=== PATIENT | male | born 1930 | race Caucasian/White ===

== ENCOUNTER → 2016-12-11 | Outpatient (CLI) | payer MEDICARE ==
--- NOTE | 2016-12-11 13:17 | Diagnostic Imaging Report ---
EXAM: PA and lateral views of the chest. INDICATION: Wheezing. FINDINGS: There is left infrahilar patchy infiltrate that may relate to pneumonia. The right lung is clear. There is mild hyperinflation in the lungs. The heart size is mildly enlarged. No effusion or pneumothorax. The mediastinum and uriel appear unremarkable. IMPRESSION: Left infrahilar infiltrates suggestive of pneumonia. Report faxed to Dr. Villa at 1:17 p.m. 12/11/2016/cb Dictated by: Dictated on workstation # [id number]
== END ==
LOC: RAD 11:55
PROVIDERS: ATTEND Family Medicine
DX: R93.8 Abnormal findings on diagnostic imaging of other specified body structures (principal); R05 Cough; R06.2 Wheezing
CPT/HCPCS: 71020

== ENCOUNTER → 2016-12-16 | Outpatient (CLI) | payer MEDICARE ==
--- NOTE | 2016-12-16 12:01 | Diagnostic Imaging Report ---
EXAMINATION: PA and lateral views of the chest. COMPARISON: 12/11/2016. FINDINGS: There is improvement in the left perihilar infiltrate. The lungs demonstrate background mild interstitial thickening, probably chronic with a possible element of vascular congestion. The heart size is mildly enlarged. No effusion or pneumothorax. The mediastinum and uriel appear unremarkable. IMPRESSION: Improving left perihilar infiltrate. Cardiomegaly with minimal vascular congestion. Dictated by: Dictated on workstation # [id number]
== END ==
LOC: RAD 10:58
PROVIDERS: ATTEND Family Medicine
DX: R91.8 Other nonspecific abnormal finding of lung field (principal); I51.7 Cardiomegaly; R05 Cough
CPT/HCPCS: 71020

== ENCOUNTER → 2017-03-25 | Outpatient (CLI) | payer MEDICARE ==
--- NOTE | 2017-03-25 14:30 | Diagnostic Imaging Report ---
INDICATION: Pneumonia. PA and lateral chest obtained at 11:30 a.m. and compared to 12/16/2016. Heart and mediastinal silhouette are normal in appearance. The lungs appear clear. There is no pneumothorax or pleural fluid. The mild infiltrate visualized in the left infrahilar region appears resolved. IMPRESSION: No acute process in the chest with improvement in left perihilar infiltrate compared with 12/16/2016. Dictated by: Dictated on workstation # [id number]
== END ==
LOC: RAD 10:32
PROVIDERS: ATTEND Family Medicine
DX: J18.9 Pneumonia, unspecified organism (principal)
CPT/HCPCS: 71020

== ENCOUNTER 2017-04-29 00:11 | Inpatient (IN) | payer MEDICARE, MEDICAID ==
[~2017-04-29] VITALS: Ht 177.8 cm; Wt 84.0 kg
--- OUTSIDE RECORDS SUMMARY | 2017-04-29 00:18 | XMS REPORT | Continuity of Care Document ---
Author Author [facility] Organization [facility] Address [address] [place] [address] Phone Care Team Providers Care Sand Conditioner Machine Name Role Phone Aakash Hernández MD PP Aakash Hernández MD Unavailable Unavailable Problems Name Dates Details Acquired hypothyroidism (244.9, E03.9) Status: Active Atherosclerosis of [place] coronary artery of [place] heart without angina pectoris (414.01, I25.10) Status: Active Benign essential hypertension (401.1, I10) Status: Active Bronchitis (490, J40) Status: Active COMBO MEDICARE HIGH DOSE INFLUENZA AND PREVNAR PNEUMOVAX (Renamed from Need for prophylactic vaccination against Streptococcus pneumoniae (pneumococcus) and influenza) (V06.6, Z23) Status: Active Controlled diabetes mellitus (250.00, E11.9) Status: Active Encounter for long-term (current) use of high-risk medication (V58.69, Z79.899 ) Status: Active Hypercholesterolemia (Renamed from Hypercholesteremia) (272.0, E78.0) Status: Active Hypercholesterolemia (Renamed from Hypercholesteremia) (272.0, E78.0) Status: Active Kidney disease, chronic, stage III (moderate, 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 Montiel for comprehensive documentation of visit for multiple medical problems and consultation for pre-operative evaluation for PKE and IOL OS. 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: Active Medications Name Dates Details BABY ASPIRIN, 81MG (Oral Tablet Chewable) daily (81 MG) Active CENTRUM SILVER (Oral Tablet) daily Active CYMBALTA, 30MG (Oral Capsule Delayed Release Particles) one daily (30 MG) Active DONEPEZIL HCL, 10MG (Oral Tablet) one-half at bedtime (10 MG) Active FOLIC ACID, 1MG (Oral Tablet) daily (1 MG) Active GLIPIZIDE, 10MG (Oral Tablet) daily (10 MG) Active LEVEMIR FLEXTOUCH, 100UNIT/ML (Subcutaneous Solution Pen-injector) 40 units in am, 30u in evening for 30 days Quantity: 5 {Pre-filled_Pen_Syringe} Ordered:10-Oct-2015 Akaash Hernández MD* Start 10-Oct-2015 Active LISINOPRIL, 5MG (Oral Tablet) 1 (one) Tablet daily for 30 days * Quantity: 30 {QS} Refills: 12 Ordered:30-Sep-2015 Aakash Hernández MD* Start 30-Sep-2015 Active METFORMIN HCL, 500MG (Oral Tablet) one two times daily (500 MG) Active SIMVASTATIN, 80MG (Oral Tablet) one-half at bedtime (80 MG) Active VITAMIN D3, 2000UNIT (Oral Capsule) one daily (2000 UNIT) Active CITALOPRAM HYDROBROMIDE, 40MG (Oral Tablet) one-half tablet daily (40 MG) Inactive DONEPEZIL HCL, 10MG (Oral Tablet) 1 (one) Tablet daily for 30 days * Quantity: 30 {Tablet} Refills: 0 Ordered:23-Jul-2015 Aakash Hernández MD* Start 23-Jul-2015 End 22-Aug-2015 Inactive DOXAZOSIN MESYLATE, 8MG (Oral Tablet) one-half tablet at bedtime (8 MG) Inactive DOXYCYCLINE MONOHYDRATE, 100MG (Oral Tablet) 1 (one) Tablet two times daily for 10 days * Quantity: 20 {Tablet} Refills: 0 Ordered:20-Nov-2015 Aakash Hernández MD* Start 20-Nov-2015 End 30-Nov-2015 Inactive FLOMAX, 0.4MG (Oral Capsule) at bedtime (0.4 MG) Inactive FOLIC ACID, 1MG (Oral Tablet) daily (1 MG) Inactive GLIMEPIRIDE, 2MG (Oral Tablet) 1 (one) Tablet Tablet daily for 90 days * Quantity: 90 {Tablet} Refills: 4 Ordered: Imelda Mena R.N.* Start 22-Nov-2014 End Inactive Comments: faxed to [facility] GLYBURIDE, 5MG (Oral Tablet) daily (5 MG) Inactive HYDROCHLOROTHIAZIDE, 25MG (Oral Tablet) daily (25 MG) Inactive LANTUS SOLOSTAR, 100UNIT/ML (Subcutaneous Solution Pen-injector) 5 units units at bedtime for 90 days * Quantity: 450 {Milliliter} Refills: 4 Ordered: Imelda Mena R.N.* Start 22-Nov-2014 End Inactive Comments: rx faxed to [facility] LEVOTHYROXINE SODIUM, 75MCG (Oral Tablet) 1 (one) Tablet Tablet daily for 30 days * Quantity: 30 {Tablet} Refills: 12 Ordered:26-Nov-2014 Imelda Mena R.N.* Start End 26-Nov-2014 Inactive LINEZOLID, 600MG (Oral Tablet) one two times daily (600 MG) Inactive LISINOPRIL, 20MG (Oral Tablet) one-half tablet of 40mg daily (20 MG) Inactive LISINOPRIL, 5MG (Oral Tablet) daily (5 MG) Inactive Comments: faxed to [facility] NAMENDA XR TITRATION PACK, 7 & 14 & 21 &28MG (Oral Capsule Extended Release 24 Hour) 1 (one) Capsule ER 24HR Capsule ER 24HR as directed for 30 days * Quantity: 60 {Capsule} Refills: 0 Ordered: Aakash Hernández MD* Start End Inactive NAMENDA, 10MG (Oral Tablet) one at bedtime (10 MG) Inactive NAMENDA, 10MG (Oral Tablet) two times daily (10 MG) Inactive Novalog Insulin 70/30 20 units in AM 10 units in PM Inactive NOVOLOG MIX 70/30, (70-30) 100UNIT/ML (Subcutaneous Suspension) 20 units in AM and 10 units in PM ((70-30) 100 UNIT/ML) Inactive SEROQUEL, 25MG (Oral Tablet) one at bedtime (25 MG) Inactive TYLENOL PM EXTRA STRENGTH, 500-25MG (Oral Tablet) at bedtime (500-25 MG) Inactive VITAMIN E, 1000UNIT (Oral Capsule) two times daily (1000 UNIT) Inactive Allergies and Adverse Reactions Name Dates Details Levaquin *FLUOROQUINOLONES* (Allergy) Status: Active Lortab *ANALGESICS - OPIOID* (Allergy) Status: Active Penicillins (Allergy) Status: Active Past Medical History Name Dates Details Need for immunization against influenza (V04.81, Z23) Status: Inactive Procedures Procedure Dates Details Acute Bronchitis: bronchitis Ordered:20-Nov-2015 Follow up in 2 months Ordered:20-Nov-2015 Follow up in 2 months Ordered:03-Sep-2015 Follow up in 6 weeks Ordered:23-Jul-2015 Follow up in 2 months Ordered:07-May-2015 How to access health information online Completed:07-May-2015 Follow up in 6 weeks Ordered:26-Mar-2015 How to access health information online Completed:26-Mar-2015 INFLUENZA QUADRIVALENT VAC: FLU VACC ([id number]) Completed:27-Mar-2015 ADMINISTRATION OF INFLUENZA VIRUS VACCINE (G0008) Ordered:26-Mar-2015 Follow up in 2 months Ordered: How to access health information online Completed: Follow up in 3 weeks Ordered: How to access health information online Completed: Follow up in 6 weeks Ordered:26-Nov-2014 How to access health information online Completed:26-Nov-2014 Follow up in 6 months Ordered:15-May-2014 ADMINISTRATION OF PNEUMOCOCCAL CONJUGATE VACCINE (G0009) Ordered:15-May-2014 PREVNAR 13 VALENT PNEUMOCOCCAL VACCINE ([id number]) Completed:07-Jun-2014 ADMINISTRATION OF INFLUENZA VACCINE (G0008) Ordered:15-May-2014 HIGH DOSE QUADRIVALENT INFLUENZA VACCINE (52790) Completed:07-Jun-2014 Follow up in 4 months Ordered: Follow up in 4 months Ordered:03-Aug-2013 ADMIN INFLUENZA VIRUS VAC: FLU VACC PRSV FREE INC ANTIG ([id number]) Completed: Comments: CAC order ADMINISTRATION OF INFLUENZA VIRUS VACCINE (G0008) Ordered:03-May-2013 Comments: CAC order Follow up in 4 months Ordered:16-Mar-2013 CAROTID BILATERAL US ([id number]) Ordered:09-Nov-2012 Follow up in 4 months Ordered:08-Nov-2012 ADMIN INFLUENZA VIRUS VAC: FLU VACC PRSV FREE INC ANTIG ([id number]) Ordered: ADMINISTRATION OF INFLUENZA VIRUS VACCINE (G0008) Ordered:10-May-2012 CAROTID BILATERAL US ([id number]) Ordered:15-Oct-2011 ADMINISTRATION OF INFLUENZA VIRUS VACCINE (G0008) Ordered:11-Jun-2011 FLU VACC PRSV FREE INC ANTIG ([id number]) Completed:15-Jun-2011 Chronic Kidney Failure *: chronic renal insufficiency Ordered:11-Jun-2011 Follow up in 4 months Ordered: Follow up in 4 months Ordered:28-Aug-2010 EXTREMITY STUDY ([id number]) Ordered:28-Aug-[address] SCAN OF LUMBAR SPINE (20408) Ordered:28-Aug-2010 ADMINISTRATION OF INFLUENZA VIRUS VACCINE (G0008) Completed:30-May-2010 FLU VACCINE, 3 YRS & >, IM ([id number]) Completed:24-Apr-2010 Catheterization, Left Heart-Skin Completed:02-Dec-2004 EKG Completed:13-Nov-2014 EKG Completed:22-Apr-2010 EKG Completed:09-Dec-2015 Flu Vaccine Completed:10-May-2012 Flu Vaccine Completed:26-Mar-2015 Pneumovax Completed:01-May-2008 Prevnar 13 Completed:15-May-2014 PSA Completed:03-Aug-2013 Comments: (3.93) PSA Completed: Comments: (3.58) Immunization Name Dates Details Fluzone Lot #: [id number] Administered on:11-Jun-2011 Comments: Site: Deltoid (Left) Influenza (3 years and up) Lot #: [id number] Administered on:24-Apr-2010 Comments: Site: Deltoid (Left) Influenza, preserv. free, enhanced immunogncty, IM Lot #: [id number] Administered on:26-Mar-2015 Comments: Site: Deltoid (Left) Influenza, preserv. free, enhanced immunogncty, IM Lot #: [id number] Administered on:03-May-2013 Comments: Site: Deltoid (Left) Influenza, preserv. free, enhanced immunogncty, IM Lot #: [id number] Administered on:15-May-2014 Comments: Site: Deltoid (Right) Pneumococcal (2 years and up) Administered on:01-May-2008 Pneumococcal conjugate vaccine, 13 valent, IM Lot #: [id number] Administered on:15-May-2014 Comments: Site: Deltoid (Left) Family History Name Dates Details Brother 1 Comments: healthy Status: Active Brother 2 Comments: borderline diabetes Status: Active Father Comments: 72 yo [place] Status: Active Mother Comments: at 67 of cancer Status: Active Sister 1 Comments: NIDDM Status: Active Sister 2 Comments: NIDDM Status: Active Social History Name Dates Details Highest Education Level Attained: High school graduate. Status: Active Marital status: . Status: Active Non Drinker/No Alcohol Use Status: Active Place of Comments: [facility] Status: Active Tobacco use: Former smoker. Status: Active Vital Signs Date Test Result Details 20-Nov-2015 10:41 Temperature 98.4 f Comments: Method: Temporal Pulse 72 /min Comments: Pattern: Regular Respiration Rate 20 /min Comments: Pattern: Unlabored BP Systolic 156 mm[Hg] Comments: Patient Position: Sitting; Cuff Location: Left Arm; Cuff Size: Large BP Diastolic 88 mm[Hg] Comments: Patient Position: Sitting; Cuff Location: Left Arm; Cuff Size: Large Weight 172 lb Height 67.5 in Body Mass Index Calculated 26.54 kg/m2 Body Surface Area Calculated 1.91 m2 03-Sep-2015 10:55 Temperature 97.3 f Comments: Method: Temporal Pulse 70 /min Comments: Pattern: Regular BP Systolic 138 mm[Hg] Comments: Patient Position: Sitting; Cuff Location: Left Arm; Cuff Size: Standard BP Diastolic 70 mm[Hg] Comments: Patient Position: Sitting; Cuff Location: Left Arm; Cuff Size: Standard Weight 175.3125 lb Height 67.5 in Body Mass Index Calculated 27.05 kg/m2 Body Surface Area Calculated 1.92 m2 23-Jul-2015 14:43 Temperature 96.6 f Comments: Method: Temporal Pulse 56 /min Comments: Pattern: Regular Respiration Rate 20 /min Comments: Pattern: Unlabored BP Systolic 160 mm[Hg] Comments: Patient Position: Sitting; Cuff Location: Left Arm; Cuff Size: Large BP Diastolic 64 mm[Hg] Comments: Patient Position: Sitting; Cuff Location: Left Arm; Cuff Size: Large Weight 177 lb Height 67 in Body Mass Index Calculated 27.72 kg/m2 Body Surface Area Calculated 1.92 m2 07-May-2015 11:15 Temperature 97.7 f Comments: Method: Temporal Pulse 52 /min Comments: Pattern: Regular Respiration Rate 20 /min Comments: Pattern: Unlabored BP Systolic 132 mm[Hg] Comments: Patient Position: Sitting; Cuff Location: Left Arm; Cuff Size: Large BP Diastolic 68 mm[Hg] Comments: Patient Position: Sitting; Cuff Location: Left Arm; Cuff Size: Large Weight 174 lb Height 67 in Body Mass Index Calculated 27.25 kg/m2 Body Surface Area Calculated 1.91 m2 26-Mar-2015 10:28 Temperature 97.3 f Comments: Method: Temporal Pulse 64 /min Comments: Pattern: Regular Respiration Rate 20 /min Comments: Pattern: Unlabored BP Systolic 152 mm[Hg] Comments: Patient Position: Sitting; Cuff Location: Left Arm; Cuff Size: Standard BP Diastolic 66 mm[Hg] Comments: Patient Position: Sitting; Cuff Location: Left Arm; Cuff Size: Standard Weight 168 lb Height 67 in Body Mass Index Calculated 26.31 kg/m2 Body Surface Area Calculated 1.88 m2 16:07 Temperature 97.9 f Comments: Method: Temporal Pulse 60 /min Comments: Pattern: Regular Respiration Rate 20 /min Comments: Pattern: Unlabored BP Systolic 134 mm[Hg] Comments: Patient Position: Sitting; Cuff Location: Left Arm; Cuff Size: Standard BP Diastolic 62 mm[Hg] Comments: Patient Position: Sitting; Cuff Location: Left Arm; Cuff Size: Standard Weight 163 lb Height 67 in Body Mass Index Calculated 25.53 kg/m2 Body Surface Area Calculated 1.85 m2 16:22 Temperature 97.5 f Comments: Method: Temporal Pulse 52 /min Comments: Pattern: Regular Respiration Rate 20 /min Comments: Pattern: Unlabored BP Systolic 132 mm[Hg] Comments: Patient Position: Sitting; Cuff Location: Left Arm; Cuff Size: Standard BP Diastolic 62 mm[Hg] Comments: Patient Position: Sitting; Cuff Location: Left Arm; Cuff Size: Standard Weight 165 lb Height 67 in Body Mass Index Calculated 25.84 kg/m2 Body Surface Area Calculated 1.86 m2 26-Nov-2014 15:16 Temperature 97.6 f Comments: Method: Temporal Pulse 74 /min Comments: Pattern: Regular Respiration Rate 20 /min Comments: Pattern: Unlabored BP Systolic 142 mm[Hg] Comments: Patient Position: Sitting; Cuff Location: Left Arm; Cuff Size: Standard BP Diastolic 66 mm[Hg] Comments: Patient Position: Sitting; Cuff Location: Left Arm; Cuff Size: Standard Weight 173.5 lb Height 67 in Body Mass Index Calculated 27.17 kg/m2 Body Surface Area Calculated 1.9 m2 15-May-2014 14:27 Temperature 98.5 f Comments: Method: Temporal Pulse 64 /min Comments: Pattern: Regular Respiration Rate 20 /min Comments: Pattern: Unlabored BP Systolic 164 mm[Hg] Comments: Patient Position: Sitting; Cuff Location: Left Arm; Cuff Size: Large BP Diastolic 68 mm[Hg] Comments: Patient Position: Sitting; Cuff Location: Left Arm; Cuff Size: Large Weight 184 lb Height 67 in Body Mass Index Calculated 28.82 kg/m2 Body Surface Area Calculated 1.95 m2 15:43 Temperature 98.5 f Comments: Method: Temporal Pulse 60 /min Comments: Pattern: Regular Respiration Rate 20 /min Comments: Pattern: Unlabored BP Systolic 146 mm[Hg] Comments: Patient Position: Sitting; Cuff Location: Left Arm; Cuff Size: Large BP Diastolic 66 mm[Hg] Comments: Patient Position: Sitting; Cuff Location: Left Arm; Cuff Size: Large Weight 187 lb Height 67 in Body Mass Index Calculated 29.29 kg/m2 Body Surface Area Calculated 1.97 m2 03-Aug-2013 10:33 Temperature 97 f Comments: Method: Temporal Pulse 74 /min Comments: Pattern: Regular Respiration Rate 20 /min Comments: Pattern: Unlabored BP Systolic 140 mm[Hg] Comments: Patient Position: Sitting; Cuff Location: Left Arm; Cuff Size: Large BP Diastolic 72 mm[Hg] Comments: Patient Position: Sitting; Cuff Location: Left Arm; Cuff Size: Large Weight 188 lb Height 67 in Body Mass Index Calculated 29.44 kg/m2 Body Surface Area Calculated 1.97 m2 16-Mar-2013 10:48 Temperature 97.8 f Comments: Method: Temporal Pulse 64 /min Comments: Pattern: Regular Respiration Rate 20 /min Comments: Pattern: Unlabored BP Systolic 130 mm[Hg] Comments: Patient Position: Sitting; Cuff Location: Left Arm; Cuff Size: Large BP Diastolic 70 mm[Hg] Comments: Patient Position: Sitting; Cuff Location: Left Arm; Cuff Size: Large Weight 186 lb Height 67 in Body Mass Index Calculated 29.13 kg/m2 Body Surface Area Calculated 1.96 m2 08-Nov-2012 10:30 Temperature 98 f Comments: Method: Temporal Pulse 64 /min Comments: Pattern: Regular Respiration Rate 20 /min Comments: Pattern: Unlabored BP Systolic 128 mm[Hg] Comments: Patient Position: Sitting; Cuff Location: Left Arm; Cuff Size: Standard BP Diastolic 72 mm[Hg] Comments: Patient Position: Sitting; Cuff Location: Left Arm; Cuff Size: Standard Weight 187 lb Height 67 in Body Mass Index Calculated 29.29 kg/m2 Body Surface Area Calculated 1.97 m2 10-May-2012 11:05 Temperature 98.1 f Comments: Method: Temporal Pulse 74 /min Comments: Pattern: Regular Respiration Rate 20 /min Comments: Pattern: Unlabored BP Systolic 150 mm[Hg] Comments: Patient Position: Sitting; Cuff Location: Left Arm; Cuff Size: Standard BP Diastolic 72 mm[Hg] Comments: Patient Position: Sitting; Cuff Location: Left Arm; Cuff Size: Standard Weight 187 lb Height 67 in Body Mass Index Calculated 29.29 kg/m2 Body Surface Area Calculated 1.97 m2 15-Oct-2011 11:47 Temperature 97.6 f Comments: Method: Temporal Pulse 60 /min Comments: Pattern: Regular Respiration Rate 20 /min Comments: Pattern: Unlabored BP Systolic 134 mm[Hg] Comments: Patient Position: Sitting; Cuff Location: Left Arm; Cuff Size: Standard BP Diastolic 66 mm[Hg] Comments: Patient Position: Sitting; Cuff Location: Left Arm; Cuff Size: Standard Weight 187 lb Height 67 in Body Mass Index Calculated 29.29 kg/m2 Body Surface Area Calculated 1.97 m2 11-Jun-2011 11:44 Temperature 97.7 f Comments: Method: Temporal Pulse 60 /min Comments: Pattern: Regular Respiration Rate 20 /min Comments: Pattern: Unlabored BP Systolic 110 mm[Hg] Comments: Patient Position: Sitting; Cuff Location: Left Arm; Cuff Size: Large BP Diastolic 56 mm[Hg] Comments: Patient Position: Sitting; Cuff Location: Left Arm; Cuff Size: Large Weight 187 lb Height 67.5 in Body Mass Index Calculated 28.86 kg/m2 Body Surface Area Calculated 1.98 m2 15:45 Temperature 97.2 f Comments: Method: Temporal Pulse 60 /min Comments: Pattern: Regular Respiration Rate 20 /min Comments: Pattern: Unlabored BP Systolic 120 mm[Hg] Comments: Patient Position: Sitting; Cuff Location: Left Arm; Cuff Size: Standard BP Diastolic 74 mm[Hg] Comments: Patient Position: Sitting; Cuff Location: Left Arm; Cuff Size: Standard Weight 187 lb Height 67.5 in Body Mass Index Calculated 28.86 kg/m2 Body Surface Area Calculated 1.98 m2 28-Aug-2010 10:58 Temperature 97 f Comments: Method: Temporal Pulse 64 /min Comments: Pattern: Regular Respiration Rate 20 /min Comments: Pattern: Unlabored BP Systolic 132 mm[Hg] Comments: Patient Position: Sitting; Cuff Location: Left Arm; Cuff Size: Standard BP Diastolic 60 mm[Hg] Comments: Patient Position: Sitting; Cuff Location: Left Arm; Cuff Size: Standard Weight 182 lb 24-Apr-2010 10:48 Temperature 97.8 f Comments: Method: Temporal Pulse 2 /min Comments: Pattern: Regular Respiration Rate 20 /min Comments: Pattern: Unlabored BP Systolic 148 mm[Hg] Comments: Patient Position: Sitting; Cuff Location: Left Arm; Cuff Size: Standard BP Diastolic 82 mm[Hg] Comments: Patient Position: Sitting; Cuff Location: Left Arm; Cuff Size: Standard Weight 130 lb Height 67 in Body Mass Index Calculated 20.36 kg/m2 Body Surface Area Calculated 1.68 m2 Results Date Description Value Details 22-Apr-2010 11:37 ELECTROCARDIOGRAM, COMPLETE (80778) [EKG] CT Interval: 1 mm Pending 03-Sep-2015 11:24 A1C 9.1 % (Abnormal) Range: 4.6-6.2 Comments: Consistent with diabetes. 11:24 CBC-MALE- ORDER THIS ONE! ([id number]) manual diff Not Indicated (Normal) mpv 10.60 fL (Normal) Range: 0.00-99.90 PLT 217.0 10*3/uL (Normal) Range: 150.0-450.0 RDW 13.8 % (Normal) Range: 11.5-14.5 MCHC 34.5 g/dL (Normal) Range: 31.0-36.0 MCH 28.9 pg (Normal) Range: 27.0-31.2 MCV 83.6 fL (Normal) Range: 80.0-97.0 HCT 38.8 % (Abnormal) Range: 39.0-54.0 HGB 13.40 g/dL (Normal) Range: 13.00-17.00 RBC 4.64 M/uL (Normal) Range: 4.60-6.20 Baso% 0.600 % (Normal) Range: 0.000-1.000 eos% 2.00 % (Normal) Range: 0.00-3.00 mono% 9.20 % (Abnormal) Range: 0.00-9.00 LYM% 18.20 % (Abnormal) Range: 20.00-40.00 june% 70.00 % (Normal) Range: 55.00-75.00 Baso 0.050 10*3/uL (Normal) Range: 0.000-0.100 eos 0.170 10*3/uL (Normal) Range: 0.000-4.000 mono 0.80 10*3/uL (Abnormal) Range: 0.00-0.70 LYMPHS 1.58 10*3/uL (Normal) Range: 0.90-4.20 june 6.08 10*3/uL (Normal) Range: 2.50-7.80 wbc 8.68 10*3/uL (Normal) Range: 4.50-10.50 11:24 Vitamin D, 25-Hydroxy (33140) Comments: Testing performed at: [facility], [address] [place] [address], [id number], Systems Administrator: Kike Sidhu D.O., [employer] VITAMIN D,25-OH,TOTAL,IA 24 ng/mL (Abnormal) Range: 30-100 Comments: Vitamin D Status 25-OH Vitamin D: Deficiency: <20 ng/mLInsufficiency: 20 - 29 ng/mLOptimal: > or=30 ng/mL For 25-OH Vitamin D testing on patients on D2-supplementation and patients for whom quantitation of D2 and D3 fractions is required, the Advanced BioNutritionureD(TM)25-OH VIT D, (D2,D3), LC/MS/MS is recommended: order code 87654 (patients >2yrs). For more information on this test, go to:http:// education.[employer]/faq/KWC743(This link is being provided for informational/educational purposes only.) 11:24 PTH Intact ([id number]) Comments: Items in this order include: Draw Charge[i], Basic Metabolic Panel, PTH, Vitamin D, 25-Hydroxy, CBC, Hemoglobin [id number] performed at: [facility], [facility], [address] [place] [address] , [id number], Systems Administrator: Kike Sidhu D.O., [employer] PARATHYROID HORMONE, INTACT 46 pg/mL (Normal) Range: 14-64 Comments: Interpretive Guide Intact PTH Calcium -------Normal Parathyroid Normal NormalHypoparathyroidism Low or Low Normal LowHyperparathyroidism Primary Normal or High High Secondary High Normal or Low Tertiary High HighNon- Parathyroid Hypercalcemia Low or Low Normal High 11:24 BMP GLU 296 mg/dL (Abnormal) Range: 70-110 CA 9.0 mg/dL (Normal) Range: 8.4-10.2 eGFR 54.5 mL/min/1.73m2 (Abnormal) Range: >60.0 CREAT 1.3 mg/dL (Normal) Range: 0.6-1.3 BUN 20 mg/dL (Abnormal) Range: 7-18 OSMO 286 (Normal) Range: 275-295 AGAP 12.10 mmol/L (Normal) Range: 10.00-20.00 CL 101 mmol/L (Normal) Range: 98-107 CO2 27.5 mmol/L (Normal) Range: 21.0-32.0 K 4.6 mmol/L (Normal) Range: 3.5-5.0 NA 136 mmol/L (Normal) Range: 135-145 11:24 VENIPUNCTURE Draw Drawn (Normal) 07-May-2015 11:58 A1C 10.5 % (Abnormal) Comments: Items in this order include: Draw Charge[i], Basic Metabolic Panel, Hemoglobin A1C Range: 4.6-6.2 Comments: Consistent with diabetes. 11:58 BMP Comments: Items in this order include: Draw Charge[i], Basic Metabolic Panel, Hemoglobin A1C GLU 238 mg/dL (Abnormal) Range: 70-110 CA 8.7 mg/dL (Normal) Range: 8.4-10.2 eGFR 47.5 mL/min/1.73m2 (Abnormal) Range: >60.0 CREAT 1.5 mg/dL (Abnormal) Range: 0.6-1.3 OSMO 290 (Normal) Range: 275-295 BUN 25 mg/dL (Abnormal) Range: 7-18 AGAP 13.00 mmol/L (Normal) Range: 10.00-20.00 CO2 28.9 mmol/L (Normal) Range: 21.0-32.0 CL 102 mmol/L (Normal) Range: 98-107 K 4.9 mmol/L (Normal) Range: 3.5-5.0 NA 139 mmol/L (Normal) Range: 135-145 11:58 VENIPUNCTURE Comments: Items in this order include: Draw Charge[i], Basic Metabolic Panel, Hemoglobin A1C Draw Drawn (Normal) 26-Nov-2014 15:59 BMP Comments: Items in this order include: Draw Charge [i], Basic Metabolic Panel GLU 114 mg/dL (Abnormal) Range: 70-110 CA 9.0 mg/dL (Normal) Range: 8.4-10.2 eGFR 44.1 mL/min/1.73m2 (Abnormal) Range: >60.0 CREAT 1.6 mg/dL (Abnormal) Range: 0.6-1.3 BUN 17 mg/dL (Normal) Range: 7-18 OSMO 284 (Normal) Range: 275-295 AGAP 13.70 mmol/L (Normal) Range: 10.00-20.00 CO2 28.8 mmol/L (Normal) Range: 21.0-32.0 CL 103 mmol/L (Normal) Range: 98-107 K 4.5 mmol/L (Normal) Range: 3.5-5.0 NA 141 mmol/L (Normal) Range: 135-145 15:59 VENIPUNCTURE Comments: Items in this order include: Draw Charge[i], Basic Metabolic Panel Draw Drawn (Normal) 28-Feb-2014 09:48 TSH (THYROID STIMULATING HORMONE) ([id number]) Comments: Items in this order include: Draw Charge[i], Basic Metabolic Panel, Hemoglobin A1C, T4 Free, TSH TSH 5.37 uIU/ml (Normal) Range: 0.34-5.60 09:48 FT4 (Thyroxine Free) Comments: Items in this order include: Draw Charge[i], Basic Metabolic Panel, Hemoglobin A1C, T4 Free, TSH FT4 0.70 ng/dL (Normal) Range: 0.59-1.17 09:48 A1C 7.7 % (Abnormal) Comments: Items in this order include: Draw Charge[i], Basic Metabolic Panel, Hemoglobin A1C, T4 Free, TSH Range: 4.6-6.2 Comments: Consistent with diabetes. 09:48 BMP Comments: Items in this order include: Draw Charge[i], Basic Metabolic Panel, Hemoglobin A1C, T4 Free, TSH GLU 220 mg/dL (Abnormal) Range: 70-110 CA 9.4 mg/dL (Normal) Range: 8.4-10.2 eGFR 47.6 mL/min/1.73m2 (Abnormal) Range: >60.0 CREAT 1.5 mg/dL (Abnormal) Range: 0.6-1.3 OSMO 294 (Normal) Range: 275-295 BUN 22 mg/dL (Abnormal) Range: 7-18 AGAP 15.20 mmol/L (Normal) Range: 10.00-20.00 CO2 28.3 mmol/L (Normal) Range: 21.0-32.0 CL 103 mmol/L (Normal) Range: 98-107 K 4.5 mmol/L (Normal) Range: 3.5-5.0 NA 142 mmol/L (Normal) Range: 135-145 09:48 VENIPUNCTURE Comments: Items in this order include: Draw Charge[i], Basic Metabolic Panel, Hemoglobin A1C, T4 Free, TSH Draw Drawn (Normal) 03-Aug-2013 11:15 PSA (Medicare) ([id number]) Comments: Items in this order include: Draw Charge[i], Basic Metabolic Panel, Hemoglobin A1C, Urine Microalbumin, PSA ScreeningLast Hgb A1C was ran 140 Days ago. Check by kb. PSA SCREEN 3.93 ng/mL (Normal) Range: 0.00-4.00 11:15 Urine Microalbumin ([id number]) Comments: Items in this order include: Draw Charge[i], Basic Metabolic Panel, Hemoglobin A1C, Urine Microalbumin, PSA ScreeningLast Hgb A1C was ran 140 Days ago. Check by kb. U A:C RATIO 30 - 300 mg/g Abnormal (Abnormal) Range: <30 mg/g Normal U CREAT 50 mg/dL (Normal) Range: 10-300 U ALB 80 mg/L (Abnormal) Range: 10 mg/L 11:15 A1C 7.5 % (Abnormal) Comments: Items in this order include: Draw Charge[i], Basic Metabolic Panel, Hemoglobin A1C, Urine Microalbumin, PSA ScreeningLast Hgb A1C was ran 140 Days ago. Check by kb. Range: 4.6-6.2 Comments: Consistent with diabetes. 11:15 BMP Comments: Items in this order include: Draw Charge[i], Basic Metabolic Panel, Hemoglobin A1C, Urine Microalbumin, PSA ScreeningLast Hgb A1C was ran 140 Days ago. Check by kb. GLU 150 mg/dL (Abnormal) Range: 70-110 CA 9.0 mg/dL (Normal) Range: 8.4-10.2 eGFR 51.6 mL/min/1.73m2 (Abnormal) Range: >60.0 CREAT 1.4 mg/dL (Abnormal) Range: 0.6-1.3 OSMO 287 (Normal) Range: 275-295 BUN 18 mg/dL (Normal) Range: 7-18 AGAP 13.50 mmol/L (Normal) Range: 10.00-20.00 CO2 29.0 mmol/L (Normal) Range: 21.0-32.0 CL 103 mmol/L (Normal) Range: 98-107 K 4.5 mmol/L (Normal) Range: 3.5-5.0 NA 141 mmol/L (Normal) Range: 135-145 11:15 VENIPUNCTURE Comments: Items in this order include: Draw Charge[i], Basic Metabolic Panel, Hemoglobin A1C, Urine Microalbumin, PSA ScreeningLast Hgb A1C was ran 140 Days ago. Check by kb. Draw Drawn (Normal) 16-Mar-2013 11:42 CK ([id number]) Comments: Items in this order include: Basic Metabolic Panel, Hemoglobin A1C, Draw Charge[i], ALT, CKILast Hgb A1C was ran 128 Days ago. Check by kb CKI 220 U/L (Normal) Range: 39-308 11:42 ALT ([id number]) Comments: Items in this order include: Basic Metabolic Panel, Hemoglobin A1C, Draw Charge[i], ALT, CKILast Hgb A1C was ran 128 Days ago. Check by kb ALTI 30 U/L (Normal) Range: 12-78 11:42 VENIPUNCTURE Routine Venipuncture Drawn (Normal) 11:42 A1C 7.8 % (Abnormal) Comments: Items in this order include: Basic Metabolic Panel, Hemoglobin A1C, Draw Charge[i], ALT, CKILast Hgb A1C was ran 128 Days ago. Check by kb Range: 4.6-6.2 Comments: Consistent with diabetes. 11:42 BMP Comments: Items in this order include: Basic Metabolic Panel , Hemoglobin A1C, Draw Charge[i], ALT, CKILast Hgb A1C was ran 128 Days ago. Check by kb GLU 232 mg/dL (Abnormal) Range: 70-110 CA 8.9 mg/dL (Normal) Range: 8.4-10.2 eGFR 51.7 mL/min/1.73m2 (Abnormal) Range: >60.0 CREAT 1.4 mg/dL (Abnormal) Range: 0.6-1.3 OSMO 291 (Normal) Range: 275-295 BUN 18 mg/dL (Normal) Range: 7-18 AGAP 13.60 mmol/L (Normal) Range: 10.00-20.00 CO2 29.9 mmol/L (Normal) Range: 21.0-32.0 CL 102 mmol/L (Normal) Range: 98-107 K 4.5 mmol/L (Normal) Range: 3.5-5.0 NA 141 mmol/L (Normal) Range: 135-145 11:42 VENIPUNCTURE Comments: Items in this order include: Basic Metabolic Panel, Hemoglobin A1C, Draw Charge[i], ALT, CKILast Hgb A1C was ran 128 Days ago. Check by kb Draw Drawn (Normal) 11-Nov-2012 08:39 LIPID PANEL ([id number]) Comments: Items in this order include: Draw Charge[i], Lipid LDL 60.4 mg/dL (Normal) Range: 1.0-129.0 Comments: Desirable range <100 mg/dL for patients with CHD or Diabetes and <70 mg/dL for diabetic patients with known heart disease. ahdl risk factor 3.33 (Abnormal) Range: 4.00-6.70 HDL 48 mg/dL (Normal) Range: 29-71 TRIG 258 mg/dL (Abnormal) Range: 35-160 CHOL 160 mg/dL (Normal) Range: 0-200 08:39 VENIPUNCTURE Comments: Items in this order include: Draw Charge[i], Lipid Draw Drawn (Normal) 08-Nov-2012 11:08 A1C 8.1 % (Abnormal) Comments: Items in this order include: Draw Charge[i], Basic Metabolic Panel, Hemoglobin [id number] Hgb A1C was ran 182 Days ago. Check by kb Range: 4.6-6.2 Comments: Consistent with diabetes. 11:08 BMP Comments: Items in this order include: Draw Charge[i], Basic Metabolic Panel, Hemoglobin [id number] Hgb A1C was ran 182 Days ago. Check by kb GLU 193 mg/dL (Abnormal) Range: 70-110 CA 9.1 mg/dL (Normal) Range: 8.4-10.2 eGFR 47.8 mL/min/1.73m2 (Abnormal) Range: >60.0 CREAT 1.5 mg/dL (Abnormal) Range: 0.6-1.3 OSMO 291 (Normal) Range: 275-295 BUN 18 mg/dL (Normal) Range: 7-18 AGAP 13.60 mmol/L (Normal) Range: 10.00-20.00 CO2 32.2 mmol/L (Abnormal) Range: 21.0-32.0 CL 101 mmol/L (Normal) Range: 98-107 K 4.8 mmol/L (Normal) Range: 3.5-5.0 NA 142 mmol/L (Normal) Range: 135-145 11:08 VENIPUNCTURE Comments: Items in this order include: Draw Charge[i], Basic Metabolic Panel, Hemoglobin [id number] Hgb A1C was ran 182 Days ago. Check by kb Draw Drawn (Normal) 10-May-2012 11:35 TSH (THYROID STIMULATING HORMONE) ([id number]) Comments: Items in this order include: Draw Charge[i], Basic Metabolic Panel, Hemoglobin A1C, Urine Microalbumin, TSHLast Hgb A1C was ran 208 Days ago. Check by KB TSH 4.90 uIU/ml (Normal) Range: 0.34-5.60 11:35 Urine Microalbumin ([id number]) Comments: Items in this order include: Draw Charge[i], Basic Metabolic Panel, Hemoglobin A1C, Urine Microalbumin, TSHLast Hgb A1C was ran 208 Days ago. Check by KB U A:C RATIO 30 - 300 mg/g Abnormal (Abnormal) Range: <30 mg/g Normal U CREAT 50 mg/dL (Normal) Range: 10-300 U ALB 10 mg/L (Normal) Range: 10 mg/L 11:35 A1C 7.0 % (Abnormal) Comments: Items in this order include: Draw Charge[i], Basic Metabolic Panel, Hemoglobin A1C, Urine Microalbumin, TSHLast Hgb A1C was ran 208 Days ago. Check by KB Range: 4.6-6.2 Comments: Consistent with diabetes. 11:35 BMP Comments: Items in this order include: Draw Charge[i], Basic Metabolic Panel, Hemoglobin A1C, Urine Microalbumin, TSHLast Hgb A1C was ran 208 Days ago. Check by KB GLU 239 mg/dL (Abnormal) Range: 70-110 CA 8.8 mg/dL (Normal) Range: 8.4-10.2 eGFR 51.8 mL/min/1.73m2 (Abnormal) Range: >60.0 CREAT 1.4 mg/dL (Abnormal) Range: 0.6-1.3 OSMO 283 (Normal) Range: 275-295 BUN 15 mg/dL (Normal) Range: 7-18 AGAP 11.80 mmol/L (Normal) Range: 10.00-20.00 CO2 29.7 mmol/L (Normal) Range: 21.0-32.0 CL 100 mmol/L (Normal) Range: 98-107 K 4.5 mmol/L (Normal) Range: 3.5-5.0 NA 137 mmol/L (Normal) Range: 135-145 11:35 VENIPUNCTURE Comments: Items in this order include: Draw Charge[i], Basic Metabolic Panel, Hemoglobin A1C, Urine Microalbumin, TSHLast Hgb A1C was ran 208 Days ago. Check by KB Draw Drawn (Normal) 15-Oct-2011 12:51 A1C 6.8 % (Abnormal) Comments: Items in this order include: Draw Charge[i], Basic Metabolic Panel, Hemoglobin A1C Range: 4.6-6.2 Comments: Consistent with diabetes. 12:51 BMP Comments: Items in this order include: Draw Charge[i], Basic Metabolic Panel, Hemoglobin A1C GLU 92 mg/dL (Normal) Range: 70-110 CA 9.2 mg/dL (Normal) Range: 8.4-10.2 eGFR 47.9 mL/min/1.73m2 (Abnormal) Range: >60.0 CREAT 1.5 mg/dL (Abnormal) Range: 0.6-1.3 OSMO 283 (Normal) Range: 275-295 BUN 17 mg/dL (Normal) Range: 7-18 AGAP 12.40 mmol/L (Normal) Range: 10.00-20.00 CO2 28.8 mmol/L (Normal) Range: 21.0-32.0 CL 104 mmol/L (Normal) Range: 98-107 K 4.2 mmol/L (Normal) Range: 3.5-5.0 NA 141 mmol/L (Normal) Range: 135-145 12:51 VENIPUNCTURE Comments: Items in this order include: Draw Charge[i], Basic Metabolic Panel, Hemoglobin A1C Draw Drawn (Normal) 11-Jun-2011 12:08 CBC-MALE- ORDER THIS ONE! ([id number]) Comments: Items in this order include: Hemoglobin A1C, Draw Charge[i], Basic Metabolic Panel, CBC manual diff Not Indicated (Normal) mpv 8.92 fL (Normal) Range: 0.00-99.90 PLT 234.0 10*3/uL (Normal) Range: 150.0-450.0 RDW 11.5 % (Normal) Range: 11.5-14.5 MCHC 35.9 g/dL (Normal) Range: 31.0-36.0 MCH 30.2 pg (Normal) Range: 27.0-31.2 MCV 84.1 fL (Normal) Range: 80.0-97.0 HCT 38.6 % (Abnormal) Range: 39.0-54.0 HGB 13.90 g/dL (Normal) Range: 13.00-17.00 RBC 4.59 M/uL (Abnormal) Range: 4.60-6.20 Baso% 0.631 % (Normal) Range: 0.000-1.000 eos% 2.05 % (Normal) Range: 0.00-3.00 mono% 8.94 % (Normal) Range: 0.00-9.00 LYM% 20.60 % (Normal) Range: 20.00-40.00 june% 67.80 % (Normal) Range: 55.00-75.00 Baso 0.050 10*3/uL (Normal) Range: 0.000-0.100 eos 0.161 10*3/uL (Normal) Range: 0.000-4.000 mono 0.70 10*3/uL (Normal) Range: 0.00-0.70 LYMPHS 1.62 10*3/uL (Normal) Range: 0.90-4.20 june 5.32 10*3/uL (Normal) Range: 2.50-7.80 wbc 7.85 10*3/uL (Normal) Range: 4.50-10.50 12:08 BMP Comments: Items in this order include: Hemoglobin A1C, Draw Charge[i], Basic Metabolic Panel, CBC GLU 151 mg/dL (Abnormal) Range: 70-110 CA 9.3 mg/dL (Normal) Range: 8.4-10.2 eGFR 51.9 mL/min/1.73m2 (Abnormal) Range: >60.0 CREAT 1.4 mg/dL (Abnormal) Range: 0.6-1.3 OSMO 281 (Normal) Range: 275-295 BUN 19 mg/dL (Abnormal) Range: 7-18 AGAP 10.90 mmol/L (Normal) Range: 10.00-20.00 CL 101 mmol/L (Normal) Range: 98-107 CO2 30.8 mmol/L (Normal) Range: 21.0-32.0 K 4.7 mmol/L (Normal) Range: 3.5-5.0 NA 138 mmol/L (Normal) Range: 135-145 12:08 VENIPUNCTURE Comments: Items in this order include: Hemoglobin A1C, Draw Charge[i], Basic Metabolic Panel, CBC Draw Drawn (Normal) 12:08 A1C 6.8 % (Abnormal) Comments: Items in this order include: Hemoglobin A1C, Draw Charge[i], Basic Metabolic Panel, CBC Range: 4.6-6.2 Comments: Consistent with diabetes. 16:22 Urine Microalbumin ([id number]) Comments: Items in this order include: Basic Metabolic Panel, Hemoglobin A1C, Urine Microalbumin, Draw Charge[i] U A:C RATIO <30 mg/g Normal (Normal) Range: <30 mg/g Normal U CREAT 50 mg/dL (Normal) Range: 10-300 U ALB 10 mg/L (Normal) Range: 10 mg/L 16:22 A1C 7.0 % (Abnormal) Comments: Items in this order include: Basic Metabolic Panel, Hemoglobin A1C, Urine Microalbumin, Draw Charge[i] Range: 4.6-6.2 Comments: Consistent with diabetes. 16:22 BMP Comments: Items in this order include: Basic Metabolic Panel , Hemoglobin A1C, Urine Microalbumin, Draw Charge[i] GLU 155 mg/dL (Abnormal) Range: 70-110 CA 9.3 mg/dL (Normal) Range: 8.4-10.2 eGFR 52.0 mL/min/1.73m2 (Abnormal) Range: >60.0 CREAT 1.4 mg/dL (Abnormal) Range: 0.6-1.3 OSMO 281 (Normal) Range: 275-295 BUN 17 mg/dL (Normal) Range: 7-18 AGAP 10.10 mmol/L (Normal) Range: 10.00-20.00 CO2 29.3 mmol/L (Normal) Range: 21.0-32.0 CL 103 mmol/L (Normal) Range: 98-107 K 4.4 mmol/L (Normal) Range: 3.5-5.0 NA 138 mmol/L (Normal) Range: 135-145 24-Oct-2010 10:57 CREATININE BLOOD ([id number]) Comments: Verbal order from Dr. Aakash Hernández; Verbal order from Dr. Aakash Hernández eGFR 52.0 mL/min/1.73m2 (Abnormal) Range: >60.0 CREAT 1.4 mg/dL (Abnormal) Range: 0.6-1.3 28-Aug-2010 12:07 TSH (THYROID STIMULATING HORMONE) ([id number]) TSH 5.29 uIU/ml (Normal) Range: 0.34-5.60 12:07 CBC-MALE- ORDER THIS ONE! ([id number]) manual diff Not Indicated (Normal) MCHC 35.4 g/dL (Normal) Range: 31.0-36.0 mpv 8.45 fL (Normal) Range: 0.00-99.90 PLT 282.0 10*3/uL (Normal) Range: 150.0-450.0 RDW 11.2 % (Abnormal) Range: 11.5-14.5 Baso% 0.585 % (Normal) Range: 0.000-1.000 HCT 40.6 % (Normal) Range: 39.0-54.0 HGB 14.30 g/dL (Normal) Range: 13.00-17.00 MCH 30.3 pg (Normal) Range: 27.0-31.2 MCV 85.6 fL (Normal) Range: 80.0-97.0 RBC 4.74 M/uL (Normal) Range: 4.60-6.20 Baso 0.052 10*3/uL (Normal) Range: 0.000-0.100 eos% 1.64 % (Normal) Range: 0.00-3.00 LYM% 19.00 % (Abnormal) Range: 20.00-40.00 mono% 9.06 % (Abnormal) Range: 0.00-9.00 june% 69.70 % (Normal) Range: 55.00-75.00 eos 0.144 10*3/uL (Normal) Range: 0.000-4.000 mono 0.80 10*3/uL (Abnormal) Range: 0.00-0.70 LYMPHS 1.68 10*3/uL (Normal) Range: 0.90-4.20 june 6.15 10*3/uL (Normal) Range: 2.50-7.80 wbc 8.82 10*3/uL (Normal) Range: 4.50-10.50 12:07 CK ([id number]) CK 199 U/L (Abnormal) Range: 26-190 12:07 ALT ([id number]) ALT 35 [iU]/L (Normal) Range: 30-65 12:07 A1C 6.5 % (Abnormal) Range: 4.6-6.2 12:07 BMP AGAP 12.70 mmol/L (Normal) Range: 10.00-20.00 BUN 16 mg/dL (Normal) Range: 7-18 CA 9.2 mg/dL (Normal) Range: 8.4-10.2 CO2 30.5 mmol/L (Normal) Range: 21.0-32.0 CREAT 1.4 mg/dL (Abnormal) Range: 0.6-1.3 eGFR 52.0 mL/min/1.73m2 (Abnormal) Range: >60.0 GLU 163 mg/dL (Abnormal) Range: 70-110 OSMO 289 (Normal) Range: 275-295 CL 103 mmol/L (Normal) Range: 98-107 K 4.2 mmol/L (Normal) Range: 3.5-5.0 NA 142 mmol/L (Normal) Range: 135-145 22-Apr-2010 12:46 BASIC METABOLIC PANEL- [facility] [place] ([id number]) Comments: See paper results 12:45 CBC PLATELETS & AUTO /DIFF MALE ([id number]) Comments: See paper results 12:12 HEMOGLOBIN GLYCLATED (HGB A1C) ([id number]) Comments: See paper results Treatment Plan * VENIPUNCTURE; Ordered: 02/23/2014 * LIPID PANEL ([id number]); Ordered: 06/15/2011 Advance Directives Encounters Historical Summary [facility] On 15:18 to 15:30 Office Visit - Kidney disease, chronic, stage III (moderate, EGFR 30-59 ml/min ) (585.3 | N18.3), Controlled diabetes mellitus (250.00 | E11.9), Benign essential hypertension (401.1 | I10), Senile dementia with behavioral disturbance (294.21 | F03.91), Bronchitis (490 | J40) Encounter Reason: Transition into care - The patient is transitioning into care from retirement care (is a resident at [facility]) and a summary of care was not provided ., [ADDITIONAL REASON] Alzheimers Disease - The history is reported by the spouse. The last clinic visit was 6 week(s) ago. Symptoms include poor memory, personality changes, agitation, unawareness of problem and bladder incontinence, while symptoms do not include difficulty driving, confusion, difficulty with activities of daily living, inappropriate behavior, awareness of problem, denial of problem, depression, bowel incontinence or falling. The history source describes this as mild and worsening. Associated symptoms include hazardous behavior (wrapped 220 line to AC with plastic wrap insisting he was wrapping water lines. Is becoming more threatening to with combative behavior.), while associated symptoms do not include speech difficulty, unsteady gait, rigidity, apraxia, agnosia, seizures, weakness, weight loss, sleep disturbance or wandering. Current treatment includes donepezil (Aricept). By report there is good compliance with treatment, good tolerance of treatment and fair symptom control. , [ADDITIONAL REASON] Hypertension - Symptoms do not include headache, confusion, visual disturbance, dizziness or shortness of breath. Recent blood pressure has been mostly < 158/ 88. The patient describes this as mild and unchanged. Symptoms are exacerbated by stress and skipping medications. Symptoms are relieved by stress management and medication. Associated symptoms do not include chest pain, claudication, near syncope, syncope, weakness, paresthesias or edema. Current treatment includes dietary modification and MARCUS inhibitor. By report there is good compliance with treatment, good tolerance of treatment and fair symptom control. , [ADDITIONAL REASON] Diabetes Type II, Follow Up - Symptoms do not include polydipsia, polyuria, increased appetite, fatigue or change in vision. The patient describes this as moderate in severity and unchanged. Associated symptoms include extremity paresthesias (in feet.) and bladder dysfunction ( more incontinent), while associated symptoms do not include extremity pain, extremity numbness (able to feel Monofilament test on all pressure areas of feet ), lower extremity ulcers, abdominal discomfort, impaired healing, recurrent candidiasis, unexplained weight loss or insomnia. Current treatment includes basal insulin, metformin, glipizide, dyslipidemia medications, MARCUS inhibitor, angiotensin receptor jack, dietary modification and exercise program. By report there is poor compliance with treatment, good tolerance of treatment and fair symptom control. Home glucose testing is done twice daily and results include a recent high glucose of 372 mg/dl and a recent low glucose of 95 mg/ dl. Most recent Hgb A1c result was 10.5 %. Most recent microalbumin result was mcg/mg Creatinine (64). [facility] On 20-Nov-2015 10:41 to 11:12 Medication Entry [facility] On 27-Sep-2015 12:29 to 12:35 Office Visit - Controlled diabetes mellitus (250.00 | E11.9), Kidney disease, chronic, stage III (moderate, EGFR 30-59 ml/min) (585.3 | N18.3), Benign essential hypertension (401.1 | I10), Atherosclerosis of [place] coronary artery of [place] heart without angina pectoris (414.01 | I25.10), Acquired hypothyroidism (244.9 | E03.9), Senile dementia with behavioral disturbance ( 294.21 | F03.91) Encounter Reason: Alzheimers Disease - The history is reported by the spouse. The last clinic visit was 6 week(s) ago. Management changes made at the last visit include changing medication dose (increased donepezil from 5mg to 10mg daily). Symptoms include poor memory, personality changes, agitation, unawareness of problem and bladder incontinence, while symptoms do not include difficulty driving, confusion, difficulty with activities of daily living, inappropriate behavior, awareness of problem, denial of problem, depression, bowel incontinence or falling. The history source describes this as mild and worsening. Associated symptoms include hazardous behavior (wrapped 220 line to AC with plastic wrap insisting he was wrapping water lines. Is becoming more threatening to with combative behavior.), while associated symptoms do not include speech difficulty, unsteady gait, rigidity, apraxia, agnosia, seizures, weakness, weight loss, sleep disturbance or wandering. Current treatment includes donepezil (Aricept). By report there is good compliance with treatment , good tolerance of treatment and fair symptom control. Note for "Alzheimers disease": relates that she has not noticed any improvement in pt's memory with increased dose of donepezil. She feels pt's memory is worsening., [ ADDITIONAL REASON] Hypertension - The last clinic visit was 6 week(s) ago. Symptoms do not include headache, confusion, visual disturbance, dizziness or shortness of breath. Recent blood pressure has been mostly < 140/72. The patient describes this as mild and unchanged. Symptoms are exacerbated by stress and skipping medications. Symptoms are relieved by stress management and medication. Associated symptoms do not include chest pain, claudication, near syncope, syncope, weakness, paresthesias or edema. Current treatment includes dietary modification and MARCUS inhibitor. By report there is good compliance with treatment, good tolerance of treatment and fair symptom control. , [ADDITIONAL REASON] Diabetes Type II, Follow Up - The last clinic visit was 6 week(s) ago. Symptoms do not include polydipsia, polyuria, increased appetite, fatigue or change in vision. The patient describes this as moderate in severity and unchanged. Associated symptoms include extremity paresthesias (in feet.) and bladder dysfunction (more incontinent), while associated symptoms do not include extremity pain, extremity numbness (able to feel Monofilament test on all pressure areas of feet), lower extremity ulcers, abdominal discomfort, impaired healing, recurrent candidiasis, unexplained weight loss or insomnia. Current treatment includes basal insulin, metformin, glipizide, dyslipidemia medications, MARCUS inhibitor, angiotensin receptor jack, dietary modification and exercise program. By report there is poor compliance with treatment, good tolerance of treatment and fair symptom control. Home glucose testing is done twice daily and results include a recent high glucose of 382 mg/dl and a recent low glucose of 52 mg/dl. Most recent Hgb A1c was done on 05/07/2015 and the result was 10.5 %. Most recent microalbumin result was mcg/mg Creatinine (64). [facility] On 03-Sep-2015 09:02 to 11:20 Office Visit - Controlled diabetes mellitus (250.00 | E11.9), Benign essential hypertension (401.1 | I10), Kidney disease, chronic, stage III (moderate, EGFR 30-59 ml/min) (585.3 | N18.3), Senile dementia with behavioral disturbance ( 294.21 | F03.91) Encounter Reason: Alzheimers Disease - The history is reported by the spouse. The last clinic visit was 2 month(s) ago. Symptoms include poor memory, personality changes, agitation, unawareness of problem and bladder incontinence , while symptoms do not include difficulty driving, confusion, difficulty with activities of daily living, inappropriate behavior, awareness of problem, denial of problem, depression, bowel incontinence or falling. The history source describes this as mild and worsening. Associated symptoms include hazardous behavior (wrapped 220 line to AC with plastic wrap insisting he was wrapping water lines. Is becoming more threatening to with combative behavior.), while associated symptoms do not include speech difficulty, unsteady gait, rigidity, apraxia, agnosia, seizures, weakness, weight loss, sleep disturbance or wandering. Current treatment includes donepezil (Aricept). By report there is good compliance with treatment, good tolerance of treatment and fair symptom control., [ADDITIONAL REASON] Hypertension - Symptoms do not include headache, confusion, visual disturbance, dizziness or shortness of breath. Recent blood pressure has been mostly < 162/66. The patient describes this as mild and unchanged. Symptoms are exacerbated by stress and skipping medications. Symptoms are relieved by stress management and medication. Associated symptoms do not include chest pain, claudication, near syncope, syncope, weakness, paresthesias or edema. Current treatment includes dietary modification and MARCUS inhibitor. By report there is good compliance with treatment, good tolerance of treatment and fair symptom control. , [ADDITIONAL REASON] Diabetes Type II, Follow Up - Symptoms do not include polydipsia, polyuria, increased appetite, fatigue or change in vision. The patient describes this as moderate in severity and unchanged. Associated symptoms include extremity paresthesias (in feet.) and bladder dysfunction (more incontinent), while associated symptoms do not include extremity pain, extremity numbness (able to feel Monofilament test on all pressure areas of feet ), lower extremity ulcers, abdominal discomfort, impaired healing, recurrent candidiasis, unexplained weight loss or insomnia. Current treatment includes basal insulin, metformin, glipizide, dyslipidemia medications, MARCUS inhibitor, angiotensin receptor jack, dietary modification and exercise program. By report there is poor compliance with treatment, good tolerance of treatment and fair symptom control. Home glucose testing is done twice daily and results include a recent high glucose of 449 mg/dl and a recent low glucose of 121 mg/ dl. Most recent Hgb A1c was done on 05/07/2015 and the result was 10.5 %. Most recent microalbumin result was mcg/mg Creatinine (64). [facility] On 23-Jul-2015 14:42 to 16:12 Office Visit - Kidney disease, chronic, stage III (moderate, EGFR 30-59 ml/min ) (585.3 | N18.3), Benign essential hypertension (401.1 | I10), Peripheral vascular disease (Renamed from Peripheral blood vessel disorder) (443.9 | I73.9) , Controlled diabetes mellitus (250.00 | E11.9) Encounter Reason: Diabetes Type II, Follow Up - The last clinic visit was 6 week (s) ago. Symptoms do not include polydipsia, polyuria, increased appetite, fatigue or change in vision. The patient describes this as moderate in severity and improving (slightly). Associated symptoms include extremity paresthesias ( in feet.) and bladder dysfunction (more incontinent), while associated symptoms do not include extremity pain, extremity numbness (able to feel Monofilament test on all pressure areas of feet), lower extremity ulcers, abdominal discomfort, impaired healing, recurrent candidiasis, unexplained weight loss or insomnia. Current treatment includes basal insulin, metformin, glipizide, dyslipidemia medications, MARCUS inhibitor, angiotensin receptor jack, dietary modification and exercise program. By report there is poor compliance with treatment, good tolerance of treatment and fair symptom control. Home glucose testing is done twice daily and results include a recent high glucose of 589 mg/ dl (after eating ice cream.) and a recent low glucose of 143 mg/dl. Most recent Hgb A1c was done on 12/11/2014 (done at the [facility]) and the result was 8.4 %. Most recent microalbumin result was mcg/mg Creatinine (64)., [ADDITIONAL REASON ] Hypertension - Symptoms do not include headache, confusion, visual disturbance , dizziness or shortness of breath. Recent blood pressure has been mostly < 134/ 70. The patient describes this as mild and improving. Symptoms are exacerbated by stress and skipping medications. Symptoms are relieved by stress management and medication. Associated symptoms do not include chest pain, claudication, near syncope, syncope, weakness, paresthesias or edema. Current treatment includes dietary modification and MARCUS inhibitor. By report there is good compliance with treatment, good tolerance of treatment and good symptom control. , [ADDITIONAL REASON] Alzheimers Disease - The history is reported by the spouse. Symptoms include poor memory and bladder incontinence, while symptoms do not include difficulty driving, confusion, personality changes, agitation, difficulty with activities of daily living, inappropriate behavior, awareness of problem, unawareness of problem, denial of problem, depression, bowel incontinence or falling. The history source describes this as mild and worsening. Associated symptoms do not include speech difficulty, unsteady gait, rigidity, apraxia, agnosia, seizures, weakness, weight loss, sleep disturbance, wandering or hazardous behavior. Current treatment includes donepezil (Aricept) and memantine (Namenda). By report there is good compliance with treatment, good tolerance of treatment and fair symptom control. [facility] On 07-May-2015 11:15 to 12:01 Office Visit - Fluzone High Dose MEDICARE VACCINE AGAINST INFLUENZA (V04.81), Controlled diabetes mellitus (250.00 | E11.9), Kidney disease, chronic, stage III (moderate, EGFR 30-59 ml/min) (585.3 | N18.3), Benign essential hypertension (401.1 | I10), Atherosclerosis of [place] coronary artery of [place] heart without angina pectoris (414.01 | I25.10) Encounter Reason: Diabetes Type II, Follow Up - The last clinic visit was 6 week (s) ago. Symptoms do not include polydipsia, polyuria, increased appetite, fatigue or change in vision. The patient describes this as mild and worsening. Associated symptoms include extremity paresthesias (in feet.), while associated symptoms do not include extremity pain, extremity numbness (able to feel Monofilament test on all pressure areas of feet), lower extremity ulcers, abdominal discomfort, bladder dysfunction, impaired healing, recurrent candidiasis, unexplained weight loss or insomnia. Current treatment includes basal insulin, metformin, glipizide, dyslipidemia medications, MARCUS inhibitor, angiotensin receptor jack, dietary modification and exercise program. By report there is poor compliance with treatment, good tolerance of treatment and poor symptom control. Home glucose testing is done twice daily and results include a recent high glucose of 590 mg/dl and a recent low glucose of 186 mg/ dl. Most recent Hgb A1c was done on 12/11/2014 (done at the [facility]) and the result was 8.4 %. Most recent microalbumin result was mcg/mg Creatinine (64)., [ADDITIONAL REASON] Hypertension - The last clinic visit was 6 week(s) ago. Symptoms do not include headache, confusion, visual disturbance, dizziness or shortness of breath. Recent blood pressure has been mostly < 154/68. The patient describes this as mild and unchanged. Symptoms are exacerbated by stress and skipping medications. Symptoms are relieved by stress management and medication. Associated symptoms do not include chest pain, claudication, near syncope, syncope, weakness, paresthesias or edema. Current treatment includes dietary modification and MARCUS inhibitor. By report there is good compliance with treatment, good tolerance of treatment and good symptom control. , [ADDITIONAL REASON] Alzheimers Disease - The history is reported by the spouse. Symptoms include poor memory, while symptoms do not include difficulty driving, confusion , personality changes, agitation, difficulty with activities of daily living, inappropriate behavior, awareness of problem, unawareness of problem, denial of problem, depression, bladder incontinence, bowel incontinence or falling. The history source describes this as mild and worsening. Associated symptoms do not include speech difficulty, unsteady gait, rigidity, apraxia, agnosia, seizures, weakness, weight loss, sleep disturbance, wandering or hazardous behavior. Current treatment includes donepezil (Aricept) and memantine (Namenda). By report there is good compliance with treatment, good tolerance of treatment and fair symptom control. [facility] On 26-Mar-2015 08:43 to 11:48 Office Visit - Controlled diabetes mellitus (250.00 | E11.9), Atherosclerosis of [place] coronary artery of [place] heart without angina pectoris (414.01 | I25.10), Benign essential hypertension (401.1 | I10), Kidney disease, chronic, stage III (moderate, EGFR 30-59 ml/min) (585.3 | N18.3) Encounter Reason: Diabetes Type II, Follow Up - The last clinic visit was 1 month(s) ago. Symptoms do not include polydipsia, polyuria, increased appetite, fatigue or change in vision. The patient describes this as mild and worsening. Associated symptoms include extremity paresthesias (in feet.), while associated symptoms do not include extremity pain, extremity numbness (able to feel Monofilament test on all pressure areas of feet), lower extremity ulcers, abdominal discomfort, bladder dysfunction, impaired healing, recurrent candidiasis, unexplained weight loss or insomnia. Current treatment includes basal insulin, metformin, glipizide, dyslipidemia medications, MARCUS inhibitor, angiotensin receptor jack, dietary modification and exercise program. By report there is poor compliance with treatment, good tolerance of treatment and poor symptom control. Home glucose testing is done twice daily and results include a recent high glucose of 559 mg/dl and a recent low glucose of 265 mg/ dl. Most recent microalbumin result was mcg/mg Creatinine (64)., [ADDITIONAL REASON] Hypertension - The last clinic visit was 1 month(s) ago. Symptoms do not include headache, confusion, visual disturbance, dizziness or shortness of breath. Recent blood pressure has been mostly < 136/64. The patient describes this as mild and improving. Symptoms are exacerbated by stress and skipping medications. Symptoms are relieved by stress management and medication. Associated symptoms do not include chest pain, claudication, near syncope, syncope, weakness, paresthesias or edema. Current treatment includes dietary modification and MARCUS inhibitor. By report there is good compliance with treatment, good tolerance of treatment and good symptom control. , [ADDITIONAL REASON] Alzheimers Disease - The history is reported by the spouse. Symptoms include poor memory, while symptoms do not include difficulty driving, confusion , personality changes, agitation, difficulty with activities of daily living, inappropriate behavior, awareness of problem, unawareness of problem, denial of problem, depression, bladder incontinence, bowel incontinence or falling. The history source describes this as mild and worsening. Associated symptoms do not include speech difficulty, unsteady gait, rigidity, apraxia, agnosia, seizures, weakness, weight loss, sleep disturbance, wandering or hazardous behavior. Current treatment includes donepezil (Aricept) and memantine (Namenda). By report there is good compliance with treatment, good tolerance of treatment and fair symptom control. 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 Symptoms do not include polydipsia, polyuria, increased appetite, fatigue or change in vision. The patient describes this as mild and worsening. Associated symptoms include extremity paresthesias (in feet.), while associated symptoms do not include extremity pain, extremity numbness (able to feel Monofilament test on all pressure areas of feet), lower extremity ulcers, abdominal discomfort, bladder dysfunction, impaired healing, recurrent candidiasis, unexplained weight loss or insomnia. Current treatment includes basal insulin, metformin, dyslipidemia medications, MARCUS inhibitor, angiotensin receptor jack, dietary modification and exercise program. By report there is fair compliance with treatment, good tolerance of treatment and poor symptom control. Home glucose testing is done once daily and results include a recent high glucose of 500 mg/dl and a recent low glucose of 200's mg/dl. Most recent microalbumin result was mcg/mg Creatinine (64). Most recent lipid testing results included total cholesterol 167 mg/dl, HDL 44 mg/dl and TG 309 mg/dl., [ ADDITIONAL REASON] Hypertension - The last clinic visit was 6 week(s) ago. Symptoms do not include headache, confusion, visual disturbance, dizziness or shortness of breath. Recent blood pressure has been mostly < 134/64. The patient describes this as mild and improving. Symptoms are exacerbated by stress and skipping medications. Symptoms are relieved by stress management and medication. Associated symptoms do not include chest pain, claudication, near syncope, syncope, weakness, paresthesias or edema. Current treatment includes dietary modification and MARCUS inhibitor (has been out for 2 days.). By report there is good compliance with treatment, good tolerance of treatment and good symptom control. , [ADDITIONAL REASON] Alzheimers Disease - The history is reported by the spouse. Symptoms include poor memory, while symptoms do not include difficulty driving, confusion, personality changes, agitation, difficulty with activities of daily living, inappropriate behavior, awareness of problem, unawareness of problem, denial of problem, depression, bladder incontinence, bowel incontinence or falling. The history source describes this as mild and unchanged. Associated symptoms do not include speech difficulty, unsteady gait, rigidity, apraxia, agnosia, seizures, weakness, weight loss, sleep disturbance, wandering or hazardous behavior. Current treatment includes donepezil (Aricept). By report there is good compliance with treatment, good tolerance of treatment and fair symptom control. 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 Symptoms do not include polydipsia, polyuria, increased appetite, fatigue or change in vision. The patient describes this as mild. Associated symptoms include extremity paresthesias (in feet.), while associated symptoms do not include extremity pain , extremity numbness (able to feel Monofilament test on all pressure areas of feet), lower extremity ulcers, abdominal discomfort, bladder dysfunction, impaired healing, recurrent candidiasis, unexplained weight loss or insomnia. Current treatment includes basal insulin, metformin, glyburide, dyslipidemia medications, MARCUS inhibitor, angiotensin receptor jack, dietary modification and exercise program. By report there is good compliance with treatment, good tolerance of treatment and fair symptom control. Home glucose testing is done four times daily and results include a recent high glucose of 279 mg/dl and a recent low glucose of 103 mg/dl. Most recent Hgb A1c was done on 02/28/2014 and the result was 7.7 %. Most recent microalbumin was done on 12/08/2013 and the result was mcg/mg Creatinine (64). Most recent lipid testing was done on 2013 (at [place]) and the results included total cholesterol 167 mg/dl, HDL 44 mg/dl and TG 309 mg/dl. , [ADDITIONAL REASON] Hypertension - Symptoms do not include headache, confusion, visual disturbance, dizziness or shortness of breath. Recent blood pressure has been mostly < 144/68. The patient describes this as mild and improving. Symptoms are exacerbated by stress and skipping medications. Symptoms are relieved by stress management and medication. Associated symptoms do not include chest pain, claudication, near syncope, syncope, weakness, paresthesias or edema. Current treatment includes dietary modification and MARCUS inhibitor (has been out for 2 days.). By report there is good compliance with treatment, good tolerance of treatment and good symptom control. , [ADDITIONAL REASON] Alzheimers Disease - The history is reported by the spouse. Symptoms include poor memory, while symptoms do not include difficulty driving, confusion, personality changes, agitation, difficulty with activities of daily living, inappropriate behavior, awareness of problem, unawareness of problem, denial of problem, depression, bladder incontinence, bowel incontinence or falling. The history source describes this as mild and worsening. Associated symptoms do not include speech difficulty, unsteady gait, rigidity, apraxia, agnosia, seizures, weakness, weight loss, sleep disturbance, wandering or hazardous behavior. Current treatment includes donepezil (Aricept) . By report there is good compliance with treatment, good tolerance of treatment and fair symptom control. [facility] On 26-Nov-2014 13:52 to 16:06 Historical Summary [facility] On 23-Nov-2014 10:32 to 10:37 Medication Entry - Controlled diabetes mellitus (250.00 | E11.9) [facility] On 22-Nov-2014 14:11 to 14:17 Medication Entry [facility] On 07-Jun-2014 15:01 to 15:07 Office Visit - COMBO MEDICARE HIGH DOSE INFLUENZA AND PREVNAR PNEUMOVAX ( Renamed from Need for prophylactic vaccination against Streptococcus pneumoniae (pneumococcus) and influenza) (V06.6 | Z23), Atherosclerotic heart disease of [place] coronary artery without angina pectoris (414.01 | I25.10), Kidney disease , chronic, stage III (moderate, EGFR 30-59 ml/min) (585.3 | N18.3), Controlled diabetes mellitus (250.00 | E11.9) Encounter Reason: Diabetes Type II, Follow Up - The last clinic visit was 4 month(s) ago. No changes in management were made at the last visit. Symptoms do not include polydipsia, polyuria, increased appetite, fatigue or change in vision. The patient describes this as mild and worsening (according to 2013 A1C=8.3). Associated symptoms include extremity paresthesias (in feet.), while associated symptoms do not include extremity pain, extremity numbness ( able to feel Monofilament test on all pressure areas of feet), lower extremity ulcers, abdominal discomfort, bladder dysfunction, impaired healing, recurrent candidiasis, unexplained weight loss or insomnia. Current treatment includes basal insulin, metformin, glyburide, dyslipidemia medications, MARCUS inhibitor, angiotensin receptor jack, dietary modification and exercise program. By report there is good compliance with treatment, good tolerance of treatment and fair symptom control. Home glucose testing is done once daily and results include a usual glucose range of 115-120 mg/dl. Most recent Hgb A1c was done on 02/28/2014 and the result was 7.7 %. Most recent microalbumin was done on 2013 and the result was mcg/mg Creatinine (64). Most recent lipid testing was done on 12/08/2013 (at [place]) and the results included total cholesterol 167 mg/dl, HDL 44 mg/dl and TG 309 mg/dl., [ADDITIONAL REASON] Hypertension - The last clinic visit was 4 month(s) ago. No changes in management were made at the last visit. Symptoms do not include headache, confusion, visual disturbance, dizziness or shortness of breath. Recent blood pressure has been mostly < 166/ 70. The patient describes this as mild and unchanged. Symptoms are exacerbated by stress and skipping medications. Symptoms are relieved by stress management and medication. Associated symptoms do not include chest pain, claudication, near syncope, syncope, weakness, paresthesias or edema. Current treatment includes dietary modification, thiazide diuretic and MARCUS inhibitor. By report there is good compliance with treatment, good tolerance of treatment and fair symptom control. , [ADDITIONAL REASON] Coronary Artery Disease (CAD) - Symptoms include dyspnea with exertion (some.), while symptoms do not include chest pain, chest pressure, shortness of breath, jaw pain, orthopnea, paroxysmal nocturnal dyspnea or pedal edema. Onset was 16 year(s) ago. Associated symptoms do not include fatigue, syncope, weight gain or medication intolerance. Current treatment includes a low fat diet, aspirin, MARCUS inhibitors and statins. 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 No changes in management were made at the last visit. Symptoms do not include polydipsia, polyuria, increased appetite, fatigue or change in vision. The patient describes this as mild and worsening (according to 2013 A1C=8.3). Associated symptoms include extremity paresthesias (in feet.), while associated symptoms do not include extremity pain, extremity numbness ( able to feel Monofilament test on all pressure areas of feet), lower extremity ulcers, abdominal discomfort, bladder dysfunction, impaired healing, recurrent candidiasis, unexplained weight loss or insomnia. Current treatment includes basal insulin, metformin, glyburide, dyslipidemia medications, MARCUS inhibitor, angiotensin receptor jack, dietary modification and exercise program. By report there is good compliance with treatment, good tolerance of treatment and fair symptom control. Home glucose testing is done once daily and results include an average glucose of 130's mg/dl. Most recent Hgb A1c was done on 2013 (at [place]) and the result was 8.3 %. Most recent microalbumin was done on 12/08 and the result was mcg/mg Creatinine (64). Most recent lipid testing was done on 12/08/2013 (at [place]) and the results included total cholesterol 167 mg/dl, HDL 44 mg/dl and TG 309 mg/dl., [ADDITIONAL REASON] Hypertension - The last clinic visit was 5 month(s) ago. No changes in management were made at the last visit. Symptoms do not include headache, confusion, visual disturbance, dizziness or shortness of breath. Recent blood pressure has been mostly < 148/ 68. The patient describes this as mild and unchanged. Symptoms are exacerbated by stress and skipping medications. Symptoms are relieved by stress management and medication. Associated symptoms do not include chest pain, claudication, near syncope, syncope, weakness, paresthesias or edema. Current treatment includes dietary modification, thiazide diuretic and MARCUS inhibitor. By report there is good compliance with treatment, good tolerance of treatment and good symptom control. , [ADDITIONAL REASON] Coronary Artery Disease (CAD) - Symptoms include dyspnea with exertion (some.), while symptoms do not include chest pain, chest pressure, shortness of breath, jaw pain, orthopnea, paroxysmal nocturnal dyspnea or pedal edema. Onset was 16 year(s) ago. Associated symptoms do not include fatigue, syncope, weight gain or medication intolerance. Current treatment includes a low fat diet, aspirin, MARCUS inhibitors and statins. [facility] On 11:49 to 16:18 Historical Summary [facility] On 10:50 to 10:53 Office Visit - Atherosclerotic heart disease of [place] coronary artery without angina pectoris (414.01 | I25.10), Kidney disease, chronic, stage III (moderate , EGFR 30-59 ml/min) (585.3 | N18.3), Controlled diabetes mellitus (250.00 | E11.9), Prostate cancer screening (V76.44 | Z12.5) Encounter Reason: Diabetes Type II, Follow Up - The last clinic visit was 5 month(s) ago. No changes in management were made at the last visit. Symptoms do not include polydipsia, polyuria, increased appetite, fatigue or change in vision. The patient describes this as mild and unchanged. Associated symptoms include extremity paresthesias (in feet.), while associated symptoms do not include extremity pain, extremity numbness (able to feel Monofilament test on all pressure areas of feet), lower extremity ulcers, abdominal discomfort, bladder dysfunction, impaired healing, recurrent candidiasis, unexplained weight loss or insomnia. Current treatment includes basal insulin, metformin, glyburide, dyslipidemia medications, MARCUS inhibitor, angiotensin receptor jack , dietary modification and exercise program. By report there is good compliance with treatment, good tolerance of treatment and good symptom control. Home glucose testing is done once daily and results include a usual glucose range of 115-150's mg/dl. Most recent Hgb A1c was done on 03/16/2013 and the result was 7.8 %. Most recent microalbumin was done on 05/10/2012 and the result was mcg/ mg Creatinine (50). Most recent lipid testing was done on 11/11/2012 and the results included total cholesterol 160 mg/dl, LDL 60.4 mg/dl, HDL 48 mg/dl and TG 258 mg/dl., [ADDITIONAL REASON] Hypertension - The last clinic visit was 5 month(s) ago. No changes in management were made at the last visit. Symptoms do not include headache, confusion, visual disturbance, dizziness or shortness of breath. Recent blood pressure has been mostly < 142/74. The patient describes this as mild and unchanged. Symptoms are exacerbated by stress and skipping medications. Symptoms are relieved by stress management and medication. Associated symptoms do not include chest pain, claudication, near syncope, syncope, weakness, paresthesias or edema. Current treatment includes dietary modification, thiazide diuretic and MARCUS inhibitor. By report there is good compliance with treatment, good tolerance of treatment and good symptom control. , [ADDITIONAL REASON] Hyperlipidemia - Initial diagnosis of hyperlipidemia was year(s) ago. Disease complications include coronary artery disease and carotid stenosis. The last clinic visit was 5 month(s) ago. No changes in management were made at the last visit. The most recent measurements for this patient were taken on 11/11/2012. Recent measurements: Total Cholesterol 160, HDL Reading 48, LDL Reading 60.4 and Triglycerides Reading 258. Associated symptoms do not include chest pain, calf cramps with exertion, myalgias or nausea. Current treatment includes statins and dietary modification. By report there is good compliance with treatment, good tolerance of treatment and good symptom control. , [ADDITIONAL REASON] Coronary Artery Disease (CAD) - Symptoms include dyspnea with exertion (some.), while symptoms do not include chest pain, chest pressure, shortness of breath, jaw pain, orthopnea, paroxysmal nocturnal dyspnea or pedal edema. Onset was 16 year(s) ago. Associated symptoms do not include fatigue, syncope, weight gain or medication intolerance. Current treatment includes a low fat diet, aspirin, MARCUS inhibitors and statins. 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 No changes in management were made at the last visit. Symptoms do not include polydipsia, polyuria, increased appetite, fatigue or change in vision. The patient describes this as mild and unchanged. Associated symptoms include extremity paresthesias (in feet.), while associated symptoms do not include extremity pain, extremity numbness (able to feel Monofilament test on all pressure areas of feet), lower extremity ulcers, abdominal discomfort, bladder dysfunction, impaired healing, recurrent candidiasis, unexplained weight loss or insomnia. Current treatment includes basal insulin, metformin, glyburide, dyslipidemia medications, MARCUS inhibitor, angiotensin receptor jack , dietary modification and exercise program. By report there is good compliance with treatment, good tolerance of treatment and good symptom control. Home glucose testing is done once daily and results include a usual glucose range of 116-125 mg/dl. Most recent Hgb A1c was done on 11/08/2012 and the result was 8.1 %. Most recent microalbumin was done on 05/10/2013 and the result was mcg/mg Creatinine (50)., [ADDITIONAL REASON] Hypertension - The last clinic visit was 4 month(s) ago. No changes in management were made at the last visit. Symptoms do not include headache, confusion, visual disturbance, dizziness or shortness of breath. Recent blood pressure has been mostly < 132/72. The patient describes this as mild and improving. Symptoms are exacerbated by stress and skipping medications. Symptoms are relieved by stress management and medication. Associated symptoms do not include chest pain, claudication, near syncope, syncope, weakness, paresthesias or edema. Current treatment includes dietary modification, thiazide diuretic and MARCUS inhibitor. By report there is good compliance with treatment, good tolerance of treatment and good symptom control. , [ADDITIONAL REASON] Coronary Artery Disease (CAD) - Symptoms include dyspnea with exertion (some.), while symptoms do not include chest pain , chest pressure, shortness of breath, jaw pain, orthopnea, paroxysmal nocturnal dyspnea or pedal edema. Onset was 16 year(s) ago. Associated symptoms do not include fatigue, syncope, weight gain or medication intolerance. Current treatment includes a low fat diet, aspirin, MARCUS inhibitors and statins. 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 No changes in management were made at the last visit. Symptoms do not include polydipsia, polyuria, increased appetite, fatigue or change in vision. Associated symptoms include extremity paresthesias (in feet.), while associated symptoms do not include extremity pain, extremity numbness (able to feel Monofilament test on all pressure areas of feet), lower extremity ulcers, abdominal discomfort, bladder dysfunction, impaired healing, recurrent candidiasis, unexplained weight loss or insomnia. Current treatment includes basal insulin, metformin, glyburide, dyslipidemia medications, MARCUS inhibitor, angiotensin receptor jack, dietary modification and exercise program. By report there is good compliance with treatment, good tolerance of treatment and fair symptom control. Home glucose testing is done twice daily and results include a recent high glucose of 200 mg/dl and a recent low glucose of 110 mg/ dl. Most recent Hgb A1c was done on 05/10/2012 and the result was 7.0 %. Most recent microalbumin was done on 05/10/2012 and the result was mcg/mg Creatinine (50)., [ADDITIONAL REASON] Hypertension - The last clinic visit was 6 month(s) ago. No changes in management were made at the last visit. Symptoms do not include headache, confusion, visual disturbance, dizziness or shortness of breath. Recent blood pressure has been mostly < 130/78. The patient describes this as mild and improving. Symptoms are exacerbated by stress and skipping medications. Symptoms are relieved by stress management and medication. Associated symptoms do not include chest pain, claudication, near syncope, syncope, weakness, paresthesias or edema. Current treatment includes dietary modification, thiazide diuretic and MARCUS inhibitor. By report there is good compliance with treatment, good tolerance of treatment and good symptom control. , [ADDITIONAL REASON] Coronary Artery Disease (CAD) - Symptoms include dyspnea with exertion (some.), while symptoms do not include chest pain , chest pressure, shortness of breath, jaw pain, orthopnea, paroxysmal nocturnal dyspnea or pedal edema. Onset was 15 year(s) ago. Associated symptoms do not include fatigue, syncope, weight gain or medication intolerance. Current treatment includes a low fat diet, aspirin, MARCUS inhibitors and statins. 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 No changes in management were made at the last visit. Symptoms do not include polydipsia, polyuria, increased appetite, fatigue or change in vision. Associated symptoms do not include extremity pain, extremity numbness ( able to feel Monofilament test on all pressure areas of feet), extremity paresthesias, lower extremity ulcers, abdominal discomfort, bladder dysfunction , impaired healing, recurrent candidiasis, unexplained weight loss or insomnia. Current treatment includes basal insulin, bolus insulin, metformin, glyburide, MARCUS inhibitor, angiotensin receptor jack, dietary modification and exercise program. By report there is good compliance with treatment, good tolerance of treatment and good symptom control. Home glucose testing is done once daily (in the AM) and results include an average glucose of 110-112 mg/dl. Most recent Hgb A1c was done on 10/15/2011 and the result was 6.8 %. Most recent microalbumin was done on 02/04/2011 and the result was normal., [ADDITIONAL REASON] Hypertension - The onset of the hypertension has been gradual. The hypertension has been occurring in a continuous pattern for 10 years. The course has been decreasing. There is no none, chest pain, dyspnea on exertion, edema, fatigue, headache, orthopnea, palpitations, paroxysmal nocturnal dyspnea or visual changes. There has been associated dyspnea (some), while there has been no associated anxiety, chest pain, diaphoresis, dysuria, edema, headache, hematuria, nocturia, obesity, palpitations, polyuria, syncope, use of bronchodilators, use of corticosteroids, use of decongestants, use of oral contraceptives, visual disturbances or weakness. , [ADDITIONAL REASON] Coronary Artery Disease (CAD) - The last clinic visit was 7 month(s) ago. No changes in management were made at the last visit. Symptoms include dyspnea with exertion (some.), while symptoms do not include chest pain, chest pressure , shortness of breath, jaw pain, orthopnea, paroxysmal nocturnal dyspnea or pedal edema. Onset was 15 year(s) ago. Associated symptoms do not include fatigue, syncope, weight gain or medication intolerance. Current treatment includes a low fat diet, aspirin, MARCUS inhibitors and statins. [facility] 10-May-2012 to 12-May-2012 Office Visit - Type II diabetes mellitus (250.00), Hypertension, benign (401.1) , Peripheral vascular disease (443.9), Occlusion and stenosis of carotid artery (433.10) Encounter Reason: Diabetes Type II, Follow Up - The last clinic visit was 4 month(s) ago. No changes in management were made at the last visit. Symptoms do not include polydipsia, polyuria, increased appetite, fatigue or change in vision. Associated symptoms do not include extremity pain, extremity numbness, extremity paresthesias, lower extremity ulcers, abdominal discomfort, bladder dysfunction, impaired healing, recurrent candidiasis, unexplained weight loss or insomnia. Current treatment includes basal insulin, bolus insulin, metformin , glyburide, MARCUS inhibitor, angiotensin receptor jack, dietary modification and exercise program. By report there is good compliance with treatment, good tolerance of treatment and good symptom control. Home glucose testing is done once daily (in the AM) and results include an average glucose of 116 mg/dl. Most recent Hgb A1c was done on 06/11/2011 and the result was 6.8 %. Most recent microalbumin was done on 02/04/2011 and the result was normal., [ ADDITIONAL REASON] Hypertension - The onset of the hypertension has been gradual. The hypertension has been occurring in a continuous pattern for 10 years. The course has been decreasing. There is no none, chest pain, dyspnea on exertion, edema, fatigue, headache, orthopnea, palpitations, paroxysmal nocturnal dyspnea or visual changes. There has been associated dyspnea (some), while there has been no associated anxiety, chest pain, diaphoresis, dysuria, edema, headache, hematuria, nocturia, obesity, palpitations, polyuria, syncope, use of bronchodilators, use of corticosteroids, use of decongestants, use of oral contraceptives, visual disturbances or weakness. , [ADDITIONAL REASON] Coronary Artery Disease (CAD) - The last clinic visit was 4 month(s) ago. No changes in management were made at the last visit. Symptoms include dyspnea with exertion (some.), while symptoms do not include chest pain, chest pressure , shortness of breath, jaw pain, orthopnea, paroxysmal nocturnal dyspnea or pedal edema. Onset was 15 year(s) ago. Associated symptoms do not include fatigue, syncope, weight gain or medication intolerance. Current treatment includes a low fat diet, aspirin, MARCUS inhibitors and statins. [facility] 15-Oct-2011 to 18-Oct-2011 Historical Summary [facility] On 14-Oct-2011 15:43 to 16:07 Office Visit - Coronary atherosclerosis (414.00), Type II diabetes mellitus ( 250.00), Hypertension, benign (401.1), Peripheral vascular disease (443.9), Hypercholesterolemia (272.0), Chronic kidney disease, stage I (585.1), Need for prophylactic vaccination and inoculation against influenza (V04.81) Encounter Reason: Diabetes Type II, Follow Up - The last clinic visit was 4 month(s) ago. No changes in management were made at the last visit. Symptoms do not include polydipsia, polyuria, increased appetite, fatigue or change in vision. Associated symptoms do not include extremity pain, extremity numbness, extremity paresthesias, lower extremity ulcers, abdominal discomfort, bladder dysfunction, impaired healing, recurrent candidiasis, unexplained weight loss or insomnia. Current treatment includes basal insulin, bolus insulin, metformin , glyburide, MARCUS inhibitor, angiotensin receptor jack, dietary modification and exercise program. By report there is good compliance with treatment, good tolerance of treatment and good symptom control. Home glucose testing is done once daily (in the AM) and results include an average glucose of 116 mg/dl. Most recent Hgb A1c was done on 02/04/2011 and the result was 7.0 %. Most recent microalbumin was done on 02/04/2011 and the result was normal., [ADDITIONAL REASON] Coronary Artery Disease (CAD) - The last clinic visit was 4 month(s) ago. No changes in management were made at the last visit. Symptoms include dyspnea with exertion (some.), while symptoms do not include chest pain, chest pressure, shortness of breath, jaw pain, orthopnea, paroxysmal nocturnal dyspnea or pedal edema. Onset was 15 year(s) ago. Associated symptoms do not include fatigue, syncope, weight gain or medication intolerance. Current treatment includes a low fat diet, aspirin, MARCUS inhibitors and statins. , [ ADDITIONAL REASON] Hypertension - The onset of the hypertension has been gradual. The hypertension has been occurring in a continuous pattern for 10 years. The course has been decreasing. There is no none, chest pain, dyspnea on exertion, edema, fatigue, headache, orthopnea, palpitations, paroxysmal nocturnal dyspnea or visual changes. There has been associated dyspnea (some), while there has been no associated anxiety, chest pain, diaphoresis, dysuria, edema, headache, hematuria, nocturia, obesity, palpitations, polyuria, syncope, use of bronchodilators, use of corticosteroids, use of decongestants, use of oral contraceptives, visual disturbances or weakness. [facility] On 11-Jun-2011 11:27 to 12:04 Historical Summary [facility] On 11-Jun-2011 08:17 to 08:20 Office Visit - Type II diabetes mellitus (250.00), Peripheral vascular disease (443.9), Hypertension, benign (401.1) Encounter Reason: Diabetes Type II, Follow Up - The last clinic visit was 5 month(s) ago. No changes in management were made at the last visit. Symptoms do not include polydipsia, polyuria, increased appetite, fatigue or change in vision. Associated symptoms do not include extremity pain, extremity numbness, extremity paresthesias, lower extremity ulcers, abdominal discomfort, bladder dysfunction, impaired healing, recurrent candidiasis, unexplained weight loss or insomnia. Current treatment includes basal insulin, bolus insulin, metformin , glyburide, MARCUS inhibitor, angiotensin receptor jack, dietary modification and exercise program. By report there is good compliance with treatment, good tolerance of treatment and good symptom control., [ADDITIONAL REASON] Coronary Artery Disease (CAD) - The last clinic visit was 4 month(s) ago. No changes in management were made at the last visit. Symptoms do not include chest pain, chest pressure, shortness of breath, jaw pain, orthopnea, paroxysmal nocturnal dyspnea, dyspnea with exertion or pedal edema. Onset was 15 year(s) ago. Associated symptoms do not include fatigue, syncope, weight gain or medication intolerance. Current treatment includes a low fat diet, aspirin, MARCUS inhibitors and statins. , [ADDITIONAL REASON] Hypertension - The onset of the hypertension has been gradual. The hypertension has been occurring in a continuous pattern for 10 years. The course has been decreasing. There is no none, chest pain, dyspnea on exertion, edema, fatigue, headache, orthopnea, palpitations, paroxysmal nocturnal dyspnea or visual changes. There has been no associated anxiety, chest pain, diaphoresis, dyspnea, dysuria, edema, headache, hematuria, nocturia, obesity, palpitations, polyuria, syncope, use of bronchodilators, use of corticosteroids, use of decongestants, use of oral contraceptives, visual disturbances or weakness. [facility] to Lab entry only - Diabetes mellitus (250.00) [facility] On 24-Oct-2010 10:43 to 10:45 Office Visit - Type I diabetes mellitus (250.01), Hypercholesterolemia (272.0) , Hypertension, benign (401.1), Anemia (285.9), Sciatica (724.3), Peripheral vascular disease (443.9) Encounter Reason: Diabetes Type II, Follow Up - Symptoms do not include polydipsia, polyuria, increased appetite, fatigue or change in vision. Associated symptoms do not include extremity pain, extremity numbness, extremity paresthesias, lower extremity ulcers, abdominal discomfort, bladder dysfunction, impaired healing, recurrent candidiasis, unexplained weight loss or insomnia. Current treatment includes basal insulin, bolus insulin, metformin , glyburide, MARCUS inhibitor, angiotensin receptor jack, dietary modification and exercise program. By report there is good compliance with treatment, good tolerance of treatment and good symptom control.[facility] 28-Aug-2010 to 29-Aug-2010 Office Visit - Need for prophylactic vaccination and inoculation against influenza (V04.81) Encounter Reason: Pre-Op Visit - The procedure scheduled is on 2009. The surgeon for the procedure will be Dr. Padmini Montiel. The chief complaint is cataract in left eye.. The patient's last health maintenance visit was 4 month(s) ago. Pertinent medical history includes diabetes, cardiovascular disease and frequent aspirin use (just takes baby ASA daily.). Pertinent family history includes myocardial infarction and sudden (Dad suddenly of [place] at the age of 72.). Pertinent social history includes aspirin use. After surgery the patient plans to recover at home with family. Note for "Pre-Op Visit ": Left Cataract., [ADDITIONAL REASON] Diabetes Type II, Follow Up - Home glucose testing is done once daily. , [ADDITIONAL REASON] Hypertension - The onset of the hypertension has been gradual. The hypertension has been occurring in pattern for 10 years. , [ADDITIONAL REASON] Coronary Artery Disease (CAD) - The last clinic visit was 4 month(s) ago. No changes in management were made at the last visit. Onset was 15 year(s) ago. [facility] 24-Apr-2010 to 30-Apr-2010 Lab entry only - Diabetes mellitus type 1 (250.01), Hypertension, benign ( 401.1), Hypercholesterolemia (272.0) [facility] On 22-Apr-2010 12:43 to 14:00 Lab entry only - Diabetes mellitus type 1 (250.01) [facility] On 22-Apr-2010 12:09 to 12:13 Historical Summary - Pre-operative examination (V72.84), Coronary atherosclerosis (414.00) [facility] On 22-Apr-2010 11:35 to 12:09 Insurance * [facility]Ci Lowry ; a guarantor * Medicare WPS * BS Plan 65
[2017-04-29] MEDS ORDERED: RT-ALBUTEROL SULF 2.5 MG/3 ML PRE-MIX VIAL ONE ×2 (00:20)
--- OUTSIDE RECORDS SUMMARY | 2017-04-29 00:20 | XMS REPORT | Continuity of Care Document ---
Author Author [facility] Organization [facility] Address [address] [place] [address] Phone Care Team Providers Care Physical Therapist Technician Name Role Phone Aakash Hernández MD PP Aakash Hernández MD Unavailable Josie Allison Unavailable Unavailable Problems Name Dates Details Acquired hypothyroidism (244.9, E03.9) Status: Active Anemia (Renamed from Absolute anemia) (285.9, D64.9) Status: Active Atherosclerosis of [place] coronary artery of [place] heart without angina pectoris (414.01, I25.10) Status: Active Benign essential hypertension (401.1, I10) Status: Active COMBO MEDICARE HIGH DOSE INFLUENZA [...] Active CENTRUM SILVER (Oral Tablet) daily Active FOLIC ACID, 1MG (Oral Tablet) daily (1 MG) Active GLIPIZIDE, 10MG (Oral Tablet) daily (10 MG) Active LEVEMIR FLEXTOUCH, 100UNIT/ML (Subcutaneous Solution Pen-injector) 40 units two times daily for 30 days Quantity: 5 {Pre-filled_Pen_Syringe} Ordered:06-Jun-2015 Aakash Hernández MD* Start 06-Jun-2015 Active LISINOPRIL, 5MG (Oral Tablet) 1 (one) Tablet Tablet daily for 90 days * Quantity: 90 {Tablet} Refills: 4 Ordered: Aakash Hernández MD* Start Active METFORMIN HCL, 500MG (Oral Tablet) one two times daily (500 MG) Active SIMVASTATIN, 40MG (Oral Tablet) at bedtime (40 MG) Active VITAMIN E, 1000UNIT (Oral Capsule) two times daily (1000 UNIT) Active CITALOPRAM HYDROBROMIDE, 40MG (Oral Tablet) one-half tablet daily (40 MG) Inactive DONEPEZIL HCL, 10MG (Oral Tablet) 1 (one) Tablet daily for 30 days * Quantity: 30 {Tablet} Refills: 0 Ordered:23-Jul-2015 Aakash Hernández MD* Start 23-Jul-2015 End 22-Aug-2015 Inactive DOXAZOSIN MESYLATE, 8MG (Oral Tablet) one-half tablet at bedtime (8 MG) Inactive FLOMAX, 0.4MG (Oral Capsule) at bedtime [...] Imelda Mena R.N.* Start End 26-Nov-2014 Inactive LISINOPRIL, 20MG (Oral Tablet) one-half tablet [...] Start End Inactive NAMENDA, 10MG (Oral Tablet) two times daily (10 MG) Inactive Novalog Insulin 70/30 20 units in AM 10 units in PM Inactive NOVOLOG MIX 70/30, (70-30) 100UNIT/ML (Subcutaneous Suspension) 20 units in AM and 10 units in PM ((70-30) 100 UNIT/ML) Inactive TYLENOL PM EXTRA STRENGTH, 500-25MG (Oral Tablet) at bedtime (500-25 MG) Inactive Allergies and Adverse Reactions Name Dates Details Levaquin *FLUOROQUINOLONES* (Allergy) Status: Active Lortab *ANALGESICS - OPIOID* (Allergy) Status: Active Penicillins (Allergy) Status: Active Past Medical History Name Dates Details Need for immunization against influenza (V04.81, Z23) Status: Inactive Procedures Procedure Dates Details Follow up in 6 weeks Ordered:23-Jul-2015 Follow up in 2 months Ordered:07-May-2015 How to access health information online Completed:07-May-2015 Follow up in 6 weeks Ordered:26-Mar-2015 How to access health information online Completed:26-Mar-2015 INFLUENZA QUADRIVALENT VAC: FLU VACC ([id number]) Completed:27-Mar-2015 ADMINISTRATION OF INFLUENZA VIRUS VACCINE (G0008) [...] (G0009) Ordered:15-May-2014 PREVNAR 13 VALENT PNEUMOCOCCAL VACCINE ([id number]) Completed:07-Jun-2014 ADMINISTRATION OF INFLUENZA VACCINE (G0008) Ordered:15-May-2014 HIGH DOSE QUADRIVALENT INFLUENZA VACCINE (03475) Completed:07-Jun-2014 Follow up in 4 months Ordered: Follow up in 4 months Ordered:03-Aug-2013 ADMIN INFLUENZA VIRUS VAC: FLU VACC PRSV FREE INC ANTIG ([id number]) Completed: Comments: CAC order ADMINISTRATION OF INFLUENZA VIRUS VACCINE (G0008) Ordered:03-May-2013 Comments: CAC order Follow up in 4 months Ordered:16-Mar-2013 CAROTID BILATERAL US ([id number]) Ordered:09-Nov-2012 Follow up in 4 months Ordered:08-Nov-2012 ADMIN INFLUENZA VIRUS VAC: FLU VACC PRSV FREE INC ANTIG ([id number]) Ordered: ADMINISTRATION OF INFLUENZA VIRUS VACCINE (G0008) Ordered:10-May-2012 CAROTID BILATERAL US ([id number]) Ordered:15-Oct-2011 ADMINISTRATION OF INFLUENZA VIRUS VACCINE (G0008) Ordered:11-Jun-2011 FLU VACC PRSV FREE INC ANTIG ([id number]) Completed:15-Jun-2011 Chronic Kidney Failure *: chronic renal insufficiency Ordered:11-Jun-2011 Follow up in 4 months Ordered: Follow up in 4 months Ordered:28-Aug-2010 EXTREMITY STUDY ([id number]) Ordered:28-Aug-[address] SCAN OF LUMBAR SPINE ([id number]) Ordered:28-Aug-2010 ADMINISTRATION OF INFLUENZA VIRUS VACCINE (G0008) Completed:30-May-2010 FLU VACCINE, 3 YRS & >, IM ([id number]) Completed:24-Apr-2010 Catheterization, Left Heart-Skin Completed:02-Dec-2004 EKG Completed:13-Nov-2014 EKG Completed:22-Apr-2010 Flu Vaccine Completed:10-May-2012 Flu Vaccine Completed:26-Mar-2015 Pneumovax Completed:01-May-2008 Prevnar 13 Completed:15-May-2014 PSA Completed:03-Aug-2013 Comments: (3.93) PSA Completed: Comments: (3.58) Immunization Name Dates Details Fluzone Lot #: [id number] Administered on:11-Jun-2011 Comments: Site: Deltoid (Left) Influenza (3 years and up) Lot #: [id number] Administered on:24-Apr-2010 Comments: Site: Deltoid (Left) Influenza, preserv. free, enhanced immunogncty, IM Lot #: [id number] Administered on:26-Mar-2015 Comments: Site: Deltoid (Left) Influenza, preserv. free, enhanced immunogncty, IM Lot #: [id number] Administered on:03-May-2013 Comments: Site: Deltoid (Left) Influenza, preserv. free, enhanced immunogncty, IM Lot #: [id number] Administered on:15-May-2014 Comments: Site: Deltoid (Right) Pneumococcal (2 years and up) Administered on:01-May-2008 Pneumococcal conjugate vaccine, 13 valent, IM Lot #: [id number] Administered on:15-May-2014 Comments: Site: Deltoid (Left) Family History Name Dates Details Brother 1 Comments: healthy Status: Active Brother 2 Comments: borderline diabetes Status: Active Father Comments: 72 yo of [place] Status: Active Mother Comments: at 67 of [...] Active Vital Signs Date Test Result Details 23-Jul-2015 14:43 Temperature 96.6 f Comments: Method: [...] Description Value Details 22-Apr-2010 11:37 ELECTROCARDIOGRAM, COMPLETE ([id number]) [EKG] [place] Interval: 1 mm Pending 07-May-2015 11:58 A1C 10.5 % (Abnormal) Comments: [...] (Normal) 28-Feb-2014 09:48 TSH (THYROID STIMULATING HORMONE) (22698) Comments: Items in this order include: Draw [...] ng/mL (Normal) Range: 0.00-4.00 11:15 Urine Microalbumin (65937) Comments: Items in this order include: Draw [...] kb. Draw Drawn (Normal) 16-Mar-2013 11:42 CK ([id number]) Comments: Items in this order include: Basic Metabolic Panel, Hemoglobin A1C, Draw Charge[i], ALT, CKILast Hgb A1C was ran 128 Days ago. Check by kb CKI 220 U/L (Normal) Range: 39-308 11:42 ALT ([id number]) Comments: Items in this order include: Basic [...] Draw Drawn (Normal) 11-Nov-2012 08:39 LIPID PANEL (19849) Comments: Items in this order include: Draw Charge[i], Lipid LDL 60.4 mg/dL (Normal) Range: 1.0-129.0 Comments: Desirable range <100 mg/dL for patients with CHD or Diabetes and <70 mg/dL for diabetic patients with known heart disease. dl risk factor 3.33 (Abnormal) Range: 4.00-6.70 HDL 48 mg/dL (Normal) Range: 29-71 TRIG 258 mg/dL (Abnormal) Range: 35-160 CHOL 160 mg/dL (Normal) Range: 0-200 08:39 VENIPUNCTURE Comments: Items in this order include: Draw Charge[i], Lipid Draw Drawn (Normal) 08-Nov-2012 11:08 A1C 8.1 % (Abnormal) Comments: Items in this order include: Draw Charge[i], Basic Metabolic Panel, Hemoglobin [id number] Hgb A1C was ran 182 Days ago. Check by kb Range: 4.6-6.2 Comments: Consistent with diabetes. 11:08 BMP Comments: Items in this order include: Draw Charge[i], Basic Metabolic Panel, Hemoglobin [id number] Hgb A1C was ran 182 Days ago. [...] include: Draw Charge[i], Basic Metabolic Panel, Hemoglobin [id number] Hgb A1C was ran 182 Days ago. Check by kb Draw Drawn (Normal) 10-May-2012 11:35 TSH (THYROID STIMULATING HORMONE) ([id number]) Comments: Items in this order include: Draw Charge[i], Basic Metabolic Panel, Hemoglobin A1C, Urine Microalbumin, TSHLast Hgb A1C was ran 208 Days ago. Check by KB TSH 4.90 uIU/ml (Normal) Range: 0.34-5.60 11:35 Urine Microalbumin (75447) Comments: Items in this order include: Draw [...] (Normal) 11-Jun-2011 12:08 CBC-MALE- ORDER THIS ONE! ([id number]) Comments: Items in this order include: Hemoglobin [...] Comments: Consistent with diabetes. 16:22 Urine Microalbumin (07253) Comments: Items in this order include: Basic [...] (Normal) Range: 135-145 24-Oct-2010 10:57 CREATININE BLOOD (16670) Comments: Verbal order from Dr. Aakash Hernández; Verbal order from Dr. Aakash Hernández eGFR 52.0 mL/min/1.73m2 (Abnormal) Range: >60.0 CREAT 1.4 mg/dL (Abnormal) Range: 0.6-1.3 28-Aug-2010 12:07 TSH (THYROID STIMULATING HORMONE) ([id number]) TSH 5.29 uIU/ml (Normal) Range: 0.34-5.60 12:07 CBC-MALE- ORDER THIS ONE! (53855) manual diff Not Indicated (Normal) MCHC 35.4 [...] 8.82 10*3/uL (Normal) Range: 4.50-10.50 12:07 CK (53458) CK 199 U/L (Abnormal) Range: 26-190 12:07 ALT (77337) ALT 35 [iU]/L (Normal) Range: 30-65 12:07 [...] Range: 135-145 22-Apr-2010 12:46 BASIC METABOLIC PANEL- [facility] [place] (87320) Comments: See paper results 12:45 CBC PLATELETS & AUTO /DIFF MALE (97008) Comments: See paper results 12:12 HEMOGLOBIN GLYCLATED (HGB A1C) (01675) Comments: See paper results Treatment Plan * VENIPUNCTURE; Ordered: 02/23/2014 * LIPID PANEL ([id number]); Ordered: 06/15/2011 Advance Directives Encounters Office Visit - Controlled diabetes mellitus (250.00 [...] recent microalbumin result was mcg/mg Creatinine (64). [facility] On 23-Jul-2015 14:42 to 16:12 Office [...] was done on 12/11/2014 (done at the [facility]) and the result was 8.4 %. Most [...] tolerance of treatment and fair symptom control. [facility] On 07-May-2015 11:15 to 12:01 Office Visit - Fluzone High Dose MEDICARE VACCINE AGAINST INFLUENZA (V04.81), Controlled diabetes mellitus (250.00 | E11.9), Kidney disease, chronic, stage III (moderate, EGFR 30-59 ml/min) (585.3 | N18.3), Benign essential hypertension (401.1 | I10), Atherosclerosis of [place] coronary artery of [place] heart without angina pectoris (414.01 | I25.10) [...] was done on 12/11/2014 (done at the [facility]) and the result was 8.4 %. Most [...] tolerance of treatment and fair symptom control. [facility] On 26-Mar-2015 08:43 to 11:48 Office Visit - Controlled diabetes mellitus (250.00 | E11.9), Atherosclerosis of [place] coronary artery of [place] heart without angina pectoris (414.01 | I25.10), [...] tolerance of treatment and fair symptom control. [facility] On 13:35 to 16:41 Office Visit [...] tolerance of treatment and fair symptom control. [facility] On 13:23 to 16:54 Office Visit - Controlled diabetes mellitus (250.00 | E11.9), Kidney disease, chronic, stage III (moderate, EGFR 30-59 ml/min) (585.3 | N18.3), Atherosclerotic heart disease of [place] coronary artery without angina pectoris (414.01 | I25.10), Acquired hypothyroidism (244.9 | E03.9), Benign essential hypertension (401.1 | I10), Senile dementia, without behavioral disturbance ( 290.0 | F03.90) Encounter Reason: Transition into care - The patient is transitioning into care from a hospital (dismissed from [facility] on 11/17/2014.) and a summary of care was reviewed ., [ADDITIONAL REASON] Diabetes Type II, Follow Up - The last clinic visit was 9 day(s) ago (dismissed from [facility] on 11/17/2014.). Symptoms do not include polydipsia, [...] lipid testing was done on 2013 (at [place]) and the results included total cholesterol 167 [...] tolerance of treatment and fair symptom control. [facility] On 26-Nov-2014 13:52 to 16:06 Historical Summary [facility] On 23-Nov-2014 10:32 to 10:37 Medication Entry - Controlled diabetes mellitus (250.00 | E11.9) [facility] On 22-Nov-2014 14:11 to 14:17 Medication Entry [facility] On 07-Jun-2014 15:01 to 15:07 Office Visit - COMBO MEDICARE HIGH DOSE INFLUENZA AND PREVNAR PNEUMOVAX ( Renamed from Need for prophylactic vaccination against Streptococcus pneumoniae (pneumococcus) and influenza) (V06.6 | Z23), Atherosclerotic heart disease of [place] coronary artery without angina pectoris (414.01 | [...] lipid testing was done on 12/08/2013 (at [place]) and the results included total cholesterol 167 [...] fat diet, aspirin, MARCUS inhibitors and statins. [facility] On 15-May-2014 14:23 to 16:08 Medication Entry [facility] On 12:04 to 12:12 Office Visit - Controlled diabetes mellitus (250.00 | E11.9), Benign essential hypertension (401.1 | I10), Atherosclerotic heart disease of [place] coronary artery without angina pectoris (414.01 | [...] Hgb A1c was done on 2013 (at [place]) and the result was 8.3 %. Most recent microalbumin was done on 12/08 and the result was mcg/mg Creatinine (64). Most recent lipid testing was done on 12/08/2013 (at [place]) and the results included total cholesterol 167 [...] fat diet, aspirin, MARCUS inhibitors and statins. [facility] On 11:49 to 16:18 Historical Summary [facility] On 10:50 to 10:53 Office Visit - Atherosclerotic heart disease of [place] coronary artery without angina pectoris (414.01 | [...] fat diet, aspirin, MARCUS inhibitors and statins. [facility] On 03-Aug-2013 08:48 to 11:10 Historical Summary [facility] On 02-Aug-2013 10:28 to 10:30 Nurse Visit - Need for prophylactic vaccination and inoculation against influenza (V04.81) [facility] On 03-May-2013 12:59 to 13:01 Office Visit - Controlled diabetes mellitus (250.00 | E11.9), Kidney disease, chronic, stage III (moderate, EGFR 30-59 ml/min) (585.3 | N18.3), Atherosclerotic heart disease of [place] coronary artery without angina pectoris (414.01 | [...] fat diet, aspirin, MARCUS inhibitors and statins. [facility] On 16-Mar-2013 10:17 to 11:40 Office Visit - Benign essential hypertension (401.1 | I10), Kidney disease, chronic, stage III (GFR 30-59 ml/min) (585.3), Atherosclerotic heart disease of [place] coronary artery without angina pectoris (414.01 | [...] fat diet, aspirin, MARCUS inhibitors and statins. [facility] On 08-Nov-2012 10:08 to 11:01 Office Visit - Fluzone High Dose MEDICARE VACCINE AGAINST INFLUENZA (V04.81), Type II diabetes mellitus (250.00), Hypertension, benign (401.1), Peripheral vascular disease (Renamed from Peripheral blood vessel disorder) (443.9 | I73.9) , Kidney disease, chronic, stage III (GFR 30-59 ml/min) (585.3), Atherosclerotic heart disease of [place] coronary artery without angina pectoris (414.01 | [...] fat diet, aspirin, MARCUS inhibitors and statins. [facility] 10-May-2012 to 12-May-2012 Office Visit - [...] fat diet, aspirin, MARCUS inhibitors and statins. [facility] 15-Oct-2011 to 18-Oct-2011 Historical Summary [facility] On 14-Oct-2011 15:43 to 16:07 Office [...] of oral contraceptives, visual disturbances or weakness. [facility] On 11-Jun-2011 11:27 to 12:04 Historical Summary [facility] On 11-Jun-2011 08:17 to 08:20 Office [...] of oral contraceptives, visual disturbances or weakness. [facility] to Lab entry only - Diabetes mellitus (250.00) [facility] On 24-Oct-2010 10:43 to 10:45 Office [...] good tolerance of treatment and good symptom control.[facility] 28-Aug-2010 to 29-Aug-2010 Office Visit - [...] myocardial infarction and sudden (Dad suddenly of [place] at the age of 72.). Pertinent social [...] last visit. Onset was 15 year(s) ago. [facility] 24-Apr-2010 to 30-Apr-2010 Lab entry only - Diabetes mellitus type 1 (250.01), Hypertension, benign ( 401.1), Hypercholesterolemia (272.0) [facility] On 22-Apr-2010 12:43 to 14:00 Lab entry only - Diabetes mellitus type 1 (250.01) [facility] On 22-Apr-2010 12:09 to 12:13 Historical Summary - Pre-operative examination (V72.84), Coronary atherosclerosis (414.00) 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
--- OUTSIDE RECORDS SUMMARY | 2017-04-29 00:21 | XMS REPORT | Continuity of Care Document ---
Author Author [facility] Organization 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.01, I25.10) Status: [...] (585.3, N18.3 ) Status: Active Need for immunization against influenza (V04.81, Z23) Status: Active Need for prophylactic vaccination and [...] Active CENTRUM SILVER (Oral Tablet) daily Active DONEPEZIL HCL, 10MG (Oral Tablet) 1 (one) Tablet daily for 30 days Quantity: 30 {Tablet} Ordered:23-Jul-2015 Aakash Hernández MD* Start 23-Jul-2015 Active FOLIC ACID, 1MG (Oral Tablet) daily (1 MG) Active GLIPIZIDE, 10MG (Oral Tablet) daily (10 MG) Active LEVEMIR FLEXTOUCH, 100UNIT/ML (Subcutaneous Solution Pen-injector) 40 units two times daily for 30 days * Quantity: 5 {Pre-filled_Pen_Syringe} Refills: 12 Ordered:06-Jun-2015 Aakash Hernández MD* Start 06-Jun-2015 Active [...] Tablet) one-half tablet daily (40 MG) Inactive DOXAZOSIN MESYLATE, 8MG (Oral Tablet) one-half tablet at bedtime (8 MG) Inactive FLOMAX, 0.4MG (Oral Capsule) at bedtime (0.4 MG) Inactive FOLIC ACID, 1MG (Oral Tablet) daily (1 MG) Inactive GLIMEPIRIDE, 2MG (Oral Tablet) 1 (one) Tablet Tablet daily for 90 days * Quantity: 90 {Tablet} Refills: 4 Ordered: Imelda Mena R.N.* Start 22-Nov-2014 End Inactive Comments: faxed to [facility] GLYBURIDE, 5MG (Oral Tablet) daily (5 MG) [...] Penicillins (Allergy) Status: Active Past Medical History No Significant Medical History. Procedures Procedure Dates Details Follow up in 6 weeks Ordered:23-Jul-2015 Follow up in 2 months Ordered:07-May-2015 How to access health information online Completed:07-May-2015 Follow up in 6 weeks Ordered:26-Mar-2015 How to access health information online Completed:26-Mar-2015 INFLUENZA QUADRIVALENT VAC: FLU VACC ([id number]) Completed:27-Mar-2015 ADMINISTRATION OF INFLUENZA VIRUS VACCINE (G0008) [...] (G0009) Ordered:15-May-2014 PREVNAR 13 VALENT PNEUMOCOCCAL VACCINE (93808) Completed:07-Jun-2014 ADMINISTRATION OF INFLUENZA VACCINE (G0008) Ordered:15-May-2014 HIGH DOSE QUADRIVALENT INFLUENZA VACCINE (53820) Completed:07-Jun-2014 Follow up in 4 months Ordered: Follow up in 4 months Ordered:03-Aug-2013 ADMIN INFLUENZA VIRUS VAC: FLU VACC PRSV FREE INC ANTIG ([id number]) Completed: Comments: CAC order ADMINISTRATION OF INFLUENZA VIRUS VACCINE (G0008) Ordered:03-May-2013 Comments: CAC order Follow up in 4 months Ordered:16-Mar-2013 CAROTID BILATERAL US ([id number]) Ordered:09-Nov-2012 Follow up in 4 months Ordered:08-Nov-2012 ADMIN INFLUENZA VIRUS VAC: FLU VACC PRSV FREE INC ANTIG ([id number]) Ordered: ADMINISTRATION OF INFLUENZA VIRUS VACCINE (G0008) Ordered:10-May-2012 CAROTID BILATERAL US ([id number]) Ordered:15-Oct-2011 ADMINISTRATION OF INFLUENZA VIRUS VACCINE (G0008) Ordered:11-Jun-2011 FLU VACC PRSV FREE INC ANTIG ([id number]) Completed:15-Jun-2011 Chronic Kidney Failure *: chronic renal insufficiency Ordered:11-Jun-2011 Follow up in 4 months Ordered: Follow up in 4 months Ordered:28-Aug-2010 EXTREMITY STUDY ([id number]) Ordered:28-Aug-[address] SCAN OF LUMBAR SPINE (55763) Ordered:28-Aug-2010 ADMINISTRATION OF INFLUENZA VIRUS VACCINE (G0008) Completed:30-May-2010 FLU VACCINE, 3 YRS & >, IM ([id number]) Completed:24-Apr-2010 Catheterization, Left Heart-Skin Completed:02-Dec-2004 EKG Completed:13-Nov-2014 EKG Completed:22-Apr-2010 Flu Vaccine Completed:10-May-2012 Flu Vaccine Completed:26-Mar-2015 Pneumovax Completed:01-May-2008 Prevnar 13 Completed:15-May-2014 PSA Completed:03-Aug-2013 Comments: (3.93) PSA Completed: Comments: (3.58) Immunization Name Dates Details Fluzone Lot #: [id number] Administered on:11-Jun-2011 Comments: Site: Deltoid (Left) Influenza (3 years and up) Lot #: [id number] Administered on:24-Apr-2010 Comments: Site: Deltoid (Left) Influenza, preserv. free, enhanced immunogncty, IM Lot #: [id number] Administered on:26-Mar-2015 Comments: Site: Deltoid (Left) Influenza, preserv. free, enhanced immunogncty, IM Lot #: [id number] Administered on:03-May-2013 Comments: Site: Deltoid (Left) Influenza, preserv. free, enhanced immunogncty, IM Lot #: [id number] Administered on:15-May-2014 Comments: Site: Deltoid (Right) Pneumococcal (2 years and up) Administered on:01-May-2008 Pneumococcal conjugate vaccine, 13 valent, IM Lot #: [id number] Administered on:15-May-2014 Comments: Site: Deltoid (Left) Family History Name Dates Details Brother 1 Comments: healthy Status: Active Brother 2 Comments: borderline diabetes Status: Active Father Comments: 72 yo of [place] Status: Active Mother Comments: at 67 of [...] Description Value Details 22-Apr-2010 11:37 ELECTROCARDIOGRAM, COMPLETE (55301) [EKG] [place] Interval: 1 mm Pending 07-May-2015 [...] (Normal) 28-Feb-2014 09:48 TSH (THYROID STIMULATING HORMONE) (39894) Comments: Items in this order include: Draw [...] ng/mL (Normal) Range: 0.00-4.00 11:15 Urine Microalbumin (34927) Comments: Items in this order include: Draw [...] kb. Draw Drawn (Normal) 16-Mar-2013 11:42 CK ([id number]) Comments: Items in this order include: Basic Metabolic Panel, Hemoglobin A1C, Draw Charge[i], ALT, CKILast Hgb A1C was ran 128 Days ago. Check by kb CKI 220 U/L (Normal) Range: 39-308 11:42 ALT (52723) Comments: Items in this order include: Basic [...] Draw Drawn (Normal) 11-Nov-2012 08:39 LIPID PANEL (49368) Comments: Items in this order include: Draw [...] include: Draw Charge[i], Basic Metabolic Panel, Hemoglobin [id number] Hgb A1C was ran 182 Days ago. Check by kb Range: 4.6-6.2 Comments: Consistent with diabetes. 11:08 BMP Comments: Items in this order include: Draw Charge[i], Basic Metabolic Panel, Hemoglobin [id number] Hgb A1C was ran 182 Days ago. [...] include: Draw Charge[i], Basic Metabolic Panel, Hemoglobin [id number] Hgb A1C was ran 182 Days ago. Check by kb Draw Drawn (Normal) 10-May-2012 11:35 TSH (THYROID STIMULATING HORMONE) (04423) Comments: Items in this order include: Draw Charge[i], Basic Metabolic Panel, Hemoglobin A1C, Urine Microalbumin, TSHLast Hgb A1C was ran 208 Days ago. Check by KB TSH 4.90 uIU/ml (Normal) Range: 0.34-5.60 11:35 Urine Microalbumin (95555) Comments: Items in this order include: Draw [...] (Normal) 11-Jun-2011 12:08 CBC-MALE- ORDER THIS ONE! (97255) Comments: Items in this order include: Hemoglobin [...] Comments: Consistent with diabetes. 16:22 Urine Microalbumin (23851) Comments: Items in this order include: Basic [...] (Normal) Range: 135-145 24-Oct-2010 10:57 CREATININE BLOOD (27866) Comments: Verbal order from Dr. Aakash Hernández; Verbal order from Dr. Aakash Hernández eGFR 52.0 mL/min/1.73m2 (Abnormal) Range: >60.0 CREAT 1.4 mg/dL (Abnormal) Range: 0.6-1.3 28-Aug-2010 12:07 TSH (THYROID STIMULATING HORMONE) (49492) TSH 5.29 uIU/ml (Normal) Range: 0.34-5.60 12:07 CBC-MALE- ORDER THIS ONE! (41124) manual diff Not Indicated (Normal) MCHC 35.4 [...] 8.82 10*3/uL (Normal) Range: 4.50-10.50 12:07 CK (60214) CK 199 U/L (Abnormal) Range: 26-190 12:07 ALT (71051) ALT 35 [iU]/L (Normal) Range: 30-65 12:07 [...] Range: 135-145 22-Apr-2010 12:46 BASIC METABOLIC PANEL- [facility] [place]09) Comments: See paper results 12:45 CBC PLATELETS & AUTO /DIFF MALE (11164) Comments: See paper results 12:12 HEMOGLOBIN GLYCLATED (HGB A1C) (69381) Comments: See paper results Treatment Plan * VENIPUNCTURE; Ordered: 02/23/2014 * LIPID PANEL (30516); Ordered: 06/15/2011 Advance Directives Encounters Office Visit [...] recent microalbumin result was mcg/mg Creatinine (64). [facility] On 23-Jul-2015 14:42 to 16:12 Office [...] was done on 12/11/2014 (done at the [facility]) and the result was 8.4 %. [...] tolerance of treatment and fair symptom control. [facility] On 07-May-2015 11:15 to 12:01 Office Visit - Fluzone High Dose MEDICARE VACCINE AGAINST INFLUENZA (V04.81), Controlled diabetes mellitus (250.00 | E11.9), Kidney disease, chronic, stage III (moderate, EGFR 30-59 ml/min) (585.3 | N18.3), Benign essential hypertension (401.1 | I10), Atherosclerosis of [place] coronary artery of [place] heart without angina pectoris (414.01 | I25.10) [...] was done on 12/11/2014 (done at the [facility]) and the result was 8.4 %. [...] tolerance of treatment and fair symptom control. [facility] On 26-Mar-2015 08:43 to 11:48 Office Visit - Controlled diabetes mellitus (250.00 | E11.9), Atherosclerosis of [place] coronary artery of [place] heart without angina pectoris (414.01 | I25.10), [...] tolerance of treatment and fair symptom control. [facility] On 13:35 to 16:41 Office Visit [...] tolerance of treatment and fair symptom control. [facility] On 13:23 to 16:54 Office Visit - Controlled diabetes mellitus (250.00 | E11.9), Kidney disease, chronic, stage III (moderate, EGFR 30-59 ml/min) (585.3 | N18.3), Atherosclerotic heart disease of [place] coronary artery without angina pectoris (414.01 | I25.10), Acquired hypothyroidism (244.9 | E03.9), Benign essential hypertension (401.1 | I10), Senile dementia, without behavioral disturbance ( 290.0 | F03.90) Encounter Reason: Transition into care - The patient is transitioning into care from a hospital (dismissed from [facility] on 11/17/2014.) and a summary of care was reviewed ., [ADDITIONAL REASON] Diabetes Type II, Follow Up - The last clinic visit was 9 day(s) ago (dismissed from [facility] on 11/17/2014.). Symptoms do not include polydipsia, [...] includes basal insulin, metformin, glyburide, dyslipidemia medications, MRACUS inhibitor, angiotensin receptor jack, dietary modification and [...] lipid testing was done on 2013 (at [facility]) and the results included total cholesterol 167 [...] tolerance of treatment and fair symptom control. [facility] On 26-Nov-2014 13:52 to 16:[address] [facility] On 23-Nov-2014 10:32 to 10:37 Medication Entry - Controlled diabetes mellitus (250.00 | E11.9) [facility] On 22-Nov-2014 14:11 to 14:[address] [facility] On 07-Jun-2014 15:01 to 15:07 Office Visit - COMBO MEDICARE HIGH DOSE INFLUENZA AND PREVNAR PNEUMOVAX ( Renamed from Need for prophylactic vaccination against Streptococcus pneumoniae (pneumococcus) and influenza) (V06.6 | Z23), Atherosclerotic heart disease of [place] coronary artery without angina pectoris (414.01 | [...] lipid testing was done on 12/08/2013 (at [facility]) and the results included total cholesterol 167 [...] fat diet, aspirin, MARCUS inhibitors and statins. [facility] On 15-May-2014 14:23 to 16:[address] [facility] On 12:04 to 12:12 Office Visit - Controlled diabetes mellitus (250.00 | E11.9), Benign essential hypertension (401.1 | I10), Atherosclerotic heart disease of [place] coronary artery without angina pectoris (414.01 | [...] Hgb A1c was done on 2013 (at [facility]) and the result was 8.3 %. Most recent microalbumin was done on 12/08 and the result was mcg/mg Creatinine (64). Most recent lipid testing was done on 12/08/2013 (at [facility]) and the results included total cholesterol 167 [...] fat diet, aspirin, MARCUS inhibitors and statins. [facility] On 11:49 to 16:[address] [facility] On 10:50 to 10:53 Office Visit - Atherosclerotic heart disease of [place] coronary artery without angina pectoris (414.01 | [...] fat diet, aspirin, MARCUS inhibitors and statins. [facility] On 03-Aug-2013 08:48 to 11:[address] [facility] On 02-Aug-2013 10:28 to 10:30 Nurse Visit - Need for prophylactic vaccination and inoculation against influenza (V04.81) [facility] On 03-May-2013 12:59 to 13:01 Office Visit - Controlled diabetes mellitus (250.00 | E11.9), Kidney disease, chronic, stage III (moderate, EGFR 30-59 ml/min) (585.3 | N18.3), Atherosclerotic heart disease of [place] coronary artery without angina pectoris (414.01 | [...] fat diet, aspirin, MARCUS inhibitors and statins. [facility] On 16-Mar-2013 10:17 to 11:40 Office Visit - Benign essential hypertension (401.1 | I10), Kidney disease, chronic, stage III (GFR 30-59 ml/min) (585.3), Atherosclerotic heart disease of [place] coronary artery without angina pectoris (414.01 | [...] fat diet, aspirin, MARCUS inhibitors and statins. [facility] On 08-Nov-2012 10:08 to 11:01 Office Visit - Fluzone High Dose MEDICARE VACCINE AGAINST INFLUENZA (V04.81), Type II diabetes mellitus (250.00), Hypertension, benign (401.1), Peripheral vascular disease (Renamed from Peripheral blood vessel disorder) (443.9 | I73.9) , Kidney disease, chronic, stage III (GFR 30-59 ml/min) (585.3), Atherosclerotic heart disease of [place] coronary artery without angina pectoris (414.01 | [...] fat diet, aspirin, MARCUS inhibitors and statins. [facility] 10-May-2012 to 12-May-2012 Office Visit - [...] fat diet, aspirin, MARCUS inhibitors and statins. [facility] 15-Oct-2011 to 18-Oct-[address] [facility] On 14-Oct-2011 15:43 to 16:07 Office [...] of oral contraceptives, visual disturbances or weakness. [facility] On 11-Jun-2011 11:27 to 12:[address] [facility] On 11-Jun-2011 08:17 to 08:20 Office [...] of oral contraceptives, visual disturbances or weakness. [facility] to Lab entry only - Diabetes mellitus (250.00) [facility] On 24-Oct-2010 10:43 to 10:45 Office [...] good tolerance of treatment and good symptom control.[facility] 28-Aug-2010 to 29-Aug-2010 Office Visit - [...] myocardial infarction and sudden (Dad suddenly of [place] at the age of 72.). Pertinent social [...] last visit. Onset was 15 year(s) ago. [facility] 24-Apr-2010 to 30-Apr-2010 Lab entry only - Diabetes mellitus type 1 (250.01), Hypertension, benign ( 401.1), Hypercholesterolemia (272.0) [facility] On 22-Apr-2010 12:43 to 14:00 Lab entry only - Diabetes mellitus type 1 (250.01) [facility] On 22-Apr-2010 12:09 to 12:13 Historical Summary - Pre-operative examination (V72.84), Coronary atherosclerosis (414.00) [facility] On 22-Apr-2010 11:35 to 12:09 Insurance * Cih Lowry ; a guarantor * Medicare WPS * BS Plan 65
--- OUTSIDE RECORDS SUMMARY | 2017-04-29 00:22 | XMS REPORT | Continuity of Care Document ---
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.01, I25.10) Status: [...] sciatic nerve) (724.3, M54.30) Status: Active Senile dementia, 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.0, F03.90) Status: Active Medications Name Dates Details BABY ASPIRIN, 81MG (Oral Tablet Chewable) - Historical Medication daily (81 MG) Active CENTRUM SILVER (Oral Tablet) - Historical Medication daily Active DONEPEZIL HCL, 10MG (Oral Tablet) - Historical Medication 1/2 tablet daily (10 MG) Active FOLIC ACID, 1MG (Oral Tablet) - Historical Medication daily (1 MG) Active GLIPIZIDE, 10MG (Oral Tablet) - Historical Medication daily (10 MG) Active LEVEMIR FLEXTOUCH, 100UNIT/ML (Subcutaneous Solution Pen-injector) 35 units two times daily for 30 days Quantity: 5 {Pre-filled_Pen_Syringe} Ordered:07-May-2015 Aakash Hernández MD* Start 07-May-2015 Active LISINOPRIL, 5MG (Oral Tablet) 1 (one) Tablet Tablet daily for 90 days * Quantity: 90 {Tablet} Refills: 4 Ordered: Aakash Hernández MD* Start Active METFORMIN HCL, 500MG (Oral Tablet) - Historical Medication one two times daily (500 MG) Active NAMENDA, 10MG (Oral Tablet) - Historical Medication two times daily (10 MG) Active SIMVASTATIN, 40MG (Oral Tablet) - Historical Medication at bedtime (40 MG) Active VITAMIN E, 1000UNIT (Oral Capsule) - Historical Medication two times daily (1000 UNIT) Active CITALOPRAM HYDROBROMIDE, 40MG (Oral Tablet) - Historical Medication one-half tablet daily (40 MG) Inactive DOXAZOSIN MESYLATE, 8MG (Oral Tablet) - Historical Medication one-half tablet at bedtime (8 MG) Inactive FLOMAX, 0.4MG (Oral Capsule) - Historical Medication at bedtime (0.4 MG) Inactive FOLIC ACID, 1MG (Oral Tablet) - Historical Medication daily (1 MG) Inactive GLIMEPIRIDE, 2MG (Oral Tablet) 1 (one) Tablet Tablet daily for 90 days * Quantity: 90 {Tablet} Refills: 4 Ordered: Imelda Mena R.N.* Start 22-Nov-2014 End Inactive Comments: faxed to [facility] GLYBURIDE, 5MG (Oral Tablet) - Historical Medication daily (5 MG) Inactive HYDROCHLOROTHIAZIDE, 25MG (Oral Tablet) - Historical Medication daily (25 MG) Inactive LANTUS SOLOSTAR, 100UNIT/ML (Subcutaneous Solution Pen-injector) 5 units units at bedtime for 90 days * Quantity: 450 {Milliliter} Refills: 4 Ordered: Imelda Mena R.N.* Start 22-Nov-2014 End Inactive Comments: rx faxed to [facility] LEVOTHYROXINE SODIUM, 75MCG (Oral Tablet) 1 (one) Tablet Tablet daily for 30 days * Quantity: 30 {Tablet} Refills: 12 Ordered:26-Nov-2014 Imelda Mena R.N.* Start End 26-Nov-2014 Inactive LISINOPRIL, 20MG (Oral Tablet) - Historical Medication one-half tablet of 40mg daily (20 MG) Inactive LISINOPRIL, 5MG (Oral Tablet) - Historical Medication daily (5 MG) Inactive Comments: faxed to [facility] NAMENDA XR TITRATION PACK, 7 & 14 & 21 &28MG (Oral Capsule Extended Release 24 Hour) 1 (one) Capsule ER 24HR Capsule ER 24HR as directed for 30 days * Quantity: 60 {Capsule} Refills: 0 Ordered: Aakash Hernández MD* Start End Inactive Novalog Insulin 70/30 - Historical Medication 20 units in AM 10 units in PM Inactive NOVOLOG MIX 70/30, (70-30) 100UNIT/ML (Subcutaneous Suspension) - Historical Medication 20 units in AM and 10 units in PM ((70-30) 100 UNIT/ML) Inactive TYLENOL PM EXTRA STRENGTH, 500-25MG (Oral Tablet) - Historical Medication at bedtime (500-25 MG) Inactive Allergies and Adverse Reactions Name Dates Details Levaquin *FLUOROQUINOLONES* (Allergy) Status: Active Lortab *ANALGESICS - OPIOID* (Allergy) Status: Active Penicillins (Allergy) Status: Active Past Medical History No Significant Medical History. Procedures Procedure Dates Details Follow up in 6 weeks Ordered:26-Mar-2015 How to access health information online Completed:26-Mar-2015 INFLUENZA QUADRIVALENT VAC: FLU VACC ([id number]) Completed:27-Mar-2015 ADMINISTRATION OF INFLUENZA VIRUS VACCINE (G0008) [...] (G0009) Ordered:15-May-2014 PREVNAR 13 VALENT PNEUMOCOCCAL VACCINE ([id number]) Completed:07-Jun-2014 ADMINISTRATION OF INFLUENZA VACCINE (G0008) Ordered:15-May-2014 HIGH DOSE QUADRIVALENT INFLUENZA VACCINE ([id number]) Completed:07-Jun-2014 Follow up in 4 months Ordered: Follow up in 4 months Ordered:03-Aug-2013 ADMIN INFLUENZA VIRUS VAC: FLU VACC PRSV FREE INC ANTIG ([id number]) Completed: Comments: CAC order ADMINISTRATION OF INFLUENZA VIRUS VACCINE (G0008) Ordered:03-May-2013 Comments: CAC order Follow up in 4 months Ordered:16-Mar-2013 CAROTID BILATERAL US ([id number]) Ordered:09-Nov-2012 Follow up in 4 months Ordered:08-Nov-2012 ADMIN INFLUENZA VIRUS VAC: FLU VACC PRSV FREE INC ANTIG ([id number]) Ordered: ADMINISTRATION OF INFLUENZA VIRUS VACCINE (G0008) Ordered:10-May-2012 CAROTID BILATERAL US ([id number]) Ordered:15-Oct-2011 ADMINISTRATION OF INFLUENZA VIRUS VACCINE (G0008) Ordered:11-Jun-2011 FLU VACC PRSV FREE INC ANTIG ([id number]) Completed:15-Jun-2011 Chronic Kidney Failure *: chronic renal insufficiency Ordered:11-Jun-2011 Follow up in 4 months Ordered: Follow up in 4 months Ordered:28-Aug-2010 EXTREMITY STUDY ([id number]) Ordered:28-Aug-[address] SCAN OF LUMBAR SPINE (70121) Ordered:28-Aug-2010 ADMINISTRATION OF INFLUENZA VIRUS VACCINE (G0008) Completed:30-May-2010 FLU VACCINE, 3 YRS & >, IM ([id number]) Completed:24-Apr-2010 Catheterization, Left Heart-Skin Completed:02-Dec-2004 EKG Completed:13-Nov-2014 EKG Completed:22-Apr-2010 Flu Vaccine Completed:10-May-2012 Flu Vaccine Completed:26-Mar-2015 Pneumovax Completed:01-May-2008 Prevnar 13 Completed:15-May-2014 PSA Completed: Comments: (3.58) PSA Completed:03-Aug-2013 Comments: (3.93) Immunization Name Dates Details Fluzone Lot #: [id number] Administered on:11-Jun-2011 Comments: Site: Deltoid (Left) Influenza (3 years and up) Lot #: [id number] Administered on:24-Apr-2010 Comments: Site: Deltoid (Left) Influenza, preserv. free, enhanced immunogncty, IM Lot #: [id number] Administered on:26-Mar-2015 Comments: Site: Deltoid (Left) Influenza, preserv. free, enhanced immunogncty, IM Lot #: [id number] Administered on:03-May-2013 Comments: Site: Deltoid (Left) Influenza, preserv. free, enhanced immunogncty, IM Lot #: [id number] Administered on:15-May-2014 Comments: Site: Deltoid (Right) Pneumococcal (2 years and up) Administered on:01-May-2008 Pneumococcal conjugate vaccine, 13 valent, IM Lot #: [id number] Administered on:15-May-2014 Comments: Site: Deltoid (Left) Family History Name Dates Details Brother 1 Comments: healthy Status: Active Brother 2 Comments: borderline diabetes Status: Active Father Comments: 72 yo of [place] Status: Active Mother Comments: at 67 of [...] Active Vital Signs Date Test Result Details 07-May-2015 11:15 Temperature 97.7 f Comments: Method: [...] Description Value Details 22-Apr-2010 11:37 ELECTROCARDIOGRAM, COMPLETE (27623) [EKG] HI Interval: 1 mm Pending 26-Nov-2014 15:59 BMP Comments: Items in this [...] (Normal) 28-Feb-2014 09:48 TSH (THYROID STIMULATING HORMONE) (63575) Comments: Items in this order include: Draw [...] ng/mL (Normal) Range: 0.00-4.00 11:15 Urine Microalbumin (85513) Comments: Items in this order include: Draw [...] kb. Draw Drawn (Normal) 16-Mar-2013 11:42 CK (35327) Comments: Items in this order include: Basic Metabolic Panel, Hemoglobin A1C, Draw Charge[i], ALT, CKILast Hgb A1C was ran 128 Days ago. Check by kb CKI 220 U/L (Normal) Range: 39-308 11:42 ALT (43778) Comments: Items in this order include: Basic [...] Draw Drawn (Normal) 11-Nov-2012 08:39 LIPID PANEL (41822) Comments: Items in this order include: Draw [...] include: Draw Charge[i], Basic Metabolic Panel, Hemoglobin [id number] Hgb A1C was ran 182 Days ago. Check by kb Range: 4.6-6.2 Comments: Consistent with diabetes. 11:08 BMP Comments: Items in this order include: Draw Charge[i], Basic Metabolic Panel, Hemoglobin [id number] Hgb A1C was ran 182 Days ago. [...] include: Draw Charge[i], Basic Metabolic Panel, Hemoglobin [id number] Hgb A1C was ran 182 Days ago. Check by kb Draw Drawn (Normal) 10-May-2012 11:35 TSH (THYROID STIMULATING HORMONE) ([id number]) Comments: Items in this order include: Draw Charge[i], Basic Metabolic Panel, Hemoglobin A1C, Urine Microalbumin, TSHLast Hgb A1C was ran 208 Days ago. Check by KB TSH 4.90 uIU/ml (Normal) Range: 0.34-5.60 11:35 Urine Microalbumin (14487) Comments: Items in this order include: Draw [...] (Normal) 11-Jun-2011 12:08 CBC-MALE- ORDER THIS ONE! (90743) Comments: Items in this order include: Hemoglobin [...] Comments: Consistent with diabetes. 16:22 Urine Microalbumin (32370) Comments: Items in this order include: Basic [...] (Normal) Range: 135-145 24-Oct-2010 10:57 CREATININE BLOOD (64119) Comments: Verbal order from Dr. Aakash Hernández; Verbal order from Dr. Aakash Hernández eGFR 52.0 mL/min/1.73m2 (Abnormal) Range: >60.0 CREAT 1.4 mg/dL (Abnormal) Range: 0.6-1.3 -Aug-2010 12:07 TSH (THYROID STIMULATING HORMONE) (47900) TSH 5.29 uIU/ml (Normal) Range: 0.34-5.60 12:07 CBC-MALE- ORDER THIS ONE! (03337) manual diff Not Indicated (Normal) MCHC 35.4 [...] 8.82 10*3/uL (Normal) Range: 4.50-10.50 12:07 CK (23350) CK 199 U/L (Abnormal) Range: 26-190 12:07 ALT (45304) ALT 35 [iU]/L (Normal) Range: 30-65 12:07 [...] Range: 135-145 22-Apr-2010 12:46 BASIC METABOLIC PANEL- [facility] [place] (87541) Comments: See paper results 12:45 CBC PLATELETS & AUTO /DIFF MALE (12887) Comments: See paper results 12:12 HEMOGLOBIN GLYCLATED (HGB A1C) (76467) Comments: See paper results Treatment Plan * A1C; Ordered: 05/07/2015 * BMP; Ordered: 05/07/2015 * VENIPUNCTURE; Ordered: 05/07/2015 * VENIPUNCTURE; Ordered: 02/23/2014 * LIPID PANEL (46039); Ordered: 06/15/2011 Advance Directives Encounters Review - Kidney disease, chronic, stage III (moderate, EGFR 30-59 ml/min) ( 585.3 | N18.3), Benign essential hypertension (401.1 | [...] was done on 12/11/2014 (done at the OR Clinic) and the result was 8.4 %. [...] tolerance of treatment and fair symptom control. [facility] On 07-May-2015 11:15 Office Visit - Fluzone High Dose MEDICARE VACCINE AGAINST INFLUENZA (V04.81), Controlled diabetes mellitus (250.00 | E11.9), Kidney disease, chronic, stage III (moderate, EGFR 30-59 ml/min) (585.3 | N18.3), Benign essential hypertension (401.1 | I10), Atherosclerosis of [place] coronary artery of [place] heart without angina pectoris (414.01 | I25.10) [...] was done on 12/11/2014 (done at the [facility] Clinic) and the result was 8.4 %. [...] tolerance of treatment and fair symptom control. [facility] On 26-Mar-2015 08:43 to 11:48 Office Visit - Controlled diabetes mellitus (250.00 | E11.9), Atherosclerosis of [place] coronary artery of [place] heart without angina pectoris (414.01 | I25.10), [...] tolerance of treatment and fair symptom control. [facility] On 13:35 to 16:41 Office Visit [...] tolerance of treatment and fair symptom control. [facility] On 13:23 to 16:54 Office Visit - Controlled diabetes mellitus (250.00 | E11.9), Kidney disease, chronic, stage III (moderate, EGFR 30-59 ml/min) (585.3 | N18.3), Atherosclerotic heart disease of [place] coronary artery without angina pectoris (414.01 | I25.10), Acquired hypothyroidism (244.9 | E03.9), Benign essential hypertension (401.1 | I10), Senile dementia, without behavioral disturbance ( 290.0 | F03.90) Encounter Reason: Transition into care - The patient is transitioning into care from a hospital (dismissed from [facility] on 11/17/2014.) and a summary of care was reviewed ., [ADDITIONAL REASON] Diabetes Type II, Follow Up - The last clinic visit was 9 day(s) ago (dismissed from [facility] on 11/17/2014.). Symptoms do not include polydipsia, [...] lipid testing was done on 2013 (at OR) and the results included total cholesterol 167 [...] tolerance of treatment and fair symptom control. [facility] On 26-Nov-2014 13:52 to 16:06 Historical Summary [facility] On 23-Nov-2014 10:32 to 10:37 Medication Entry - Controlled diabetes mellitus (250.00 | E11.9) [facility] On 22-Nov-2014 14:11 to 14:17 Medication Entry [facility] On 07-Jun-2014 15:01 to 15:07 Office Visit - COMBO MEDICARE HIGH DOSE INFLUENZA AND PREVNAR PNEUMOVAX ( Renamed from Need for prophylactic vaccination against Streptococcus pneumoniae (pneumococcus) and influenza) (V06.6 | Z23), Atherosclerotic heart disease of [place] coronary artery without angina pectoris (414.01 | [...] lipid testing was done on 12/08/2013 (at OR) and the results included total cholesterol 167 [...] fat diet, aspirin, MARCUS inhibitors and statins. [facility] On 15-May-2014 14:23 to 16:08 Medication Entry [facility] On 12:04 to 12:12 Office Visit - Controlled diabetes mellitus (250.00 | E11.9), Benign essential hypertension (401.1 | I10), Atherosclerotic heart disease of [place] coronary artery without angina pectoris (414.01 | [...] Hgb A1c was done on 2013 (at OR) and the result was 8.3 %. Most recent microalbumin was done on 12/08 and the result was mcg/mg Creatinine (64). Most recent lipid testing was done on 12/08/2013 (at OR) and the results included total cholesterol 167 [...] fat diet, aspirin, MARCUS inhibitors and statins. [facility] On 11:49 to 16:18 Historical Summary [facility] On 10:50 to 10:53 Office Visit - Atherosclerotic heart disease of [place] coronary artery without angina pectoris (414.01 | [...] fat diet, aspirin, MARCUS inhibitors and statins. [facility] On 03-Aug-2013 08:48 to 11:10 Historical Summary [facility] On 02-Aug-2013 10:28 to 10:30 Nurse Visit - Need for prophylactic vaccination and inoculation against influenza (V04.81) [facility] On 03-May-2013 12:59 to 13:01 Office Visit - Controlled diabetes mellitus (250.00 | E11.9), Kidney disease, chronic, stage III (moderate, EGFR 30-59 ml/min) (585.3 | N18.3), Atherosclerotic heart disease of [place] coronary artery without angina pectoris (414.01 | [...] fat diet, aspirin, MARCUS inhibitors and statins. [facility] On 16-Mar-2013 10:17 to 11:40 Office Visit - Benign essential hypertension (401.1 | I10), Kidney disease, chronic, stage III (GFR 30-59 ml/min) (585.3), Atherosclerotic heart disease of [place] coronary artery without angina pectoris (414.01 | [...] fat diet, aspirin, MARCUS inhibitors and statins. [facility] On 08-Nov-2012 10:08 to 11:01 Office Visit - Fluzone High Dose MEDICARE VACCINE AGAINST INFLUENZA (V04.81), Type II diabetes mellitus (250.00), Hypertension, benign (401.1), Peripheral vascular disease (Renamed from Peripheral blood vessel disorder) (443.9 | I73.9) , Kidney disease, chronic, stage III (GFR 30-59 ml/min) (585.3), Atherosclerotic heart disease of [place] coronary artery without angina pectoris (414.01 | [...] fat diet, aspirin, MARCUS inhibitors and statins. [facility] 10-May-2012 to 12-May-2012 Office Visit - [...] fat diet, aspirin, MARCUS inhibitors and statins. [facility] 15-Oct-2011 to 18-Oct-2011 Historical Summary [facility] On 14-Oct-2011 15:43 to 16:07 Office [...] of oral contraceptives, visual disturbances or weakness. [facility] On 11-Jun-2011 11:27 to 12:04 Historical Summary [facility] On 11-Jun-2011 08:17 to 08:20 Office [...] of oral contraceptives, visual disturbances or weakness. [facility] to Lab entry only - Diabetes mellitus (250.00) [facility] On 24-Oct-2010 10:43 to 10:45 Office [...] good tolerance of treatment and good symptom control.[facility] 28-Aug-2010 to 29-Aug-2010 Office Visit - [...] myocardial infarction and sudden (Dad suddenly of [place] at the age of 72.). Pertinent social [...] last visit. Onset was 15 year(s) ago. [facility] 24-Apr-2010 to 30-Apr-2010 Lab entry only - Diabetes mellitus type 1 (250.01), Hypertension, benign ( 401.1), Hypercholesterolemia (272.0) [facility] On 22-Apr-2010 12:43 to 14:00 Lab entry only - Diabetes mellitus type 1 (250.01) [facility] On 22-Apr-2010 12:09 to 12:13 Historical Summary - Pre-operative examination (V72.84), Coronary atherosclerosis (414.00) [facility] On 22-Apr-2010 11:35 to 12:09 Insurance * Chi Lowry ; a guarantor * Medicare WPS * BS Plan 65
--- OUTSIDE RECORDS SUMMARY | 2017-04-29 00:23 | XMS REPORT | Continuity of Care Document ---
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 Benign essential hypertension (401.1, I10) Status: Active COMBO MEDICARE HIGH DOSE INFLUENZA AND PREVNAR PNEUMOVAX (Renamed from Need for prophylactic vaccination against Streptococcus pneumoniae (pneumococcus) and influenza) (V06.6, Z23) Status: Active Controlled diabetes mellitus (250.00, E11.9) Status: Active Coronary atherosclerosis (Renamed from Arteriosclerosis of coronary artery) ( 414.00, I25.10) Status: Active Encounter for long-term (current) use of high-risk medication (V58.69, Z79.899 ) Status: Active Fluzone High Dose MEDICARE VACCINE AGAINST INFLUENZA (V04.81) Status: Active Hypercholesterolemia (Renamed from Hypercholesteremia) (272.0, E78.0) Status: Active Hypercholesterolemia (Renamed from Hypercholesteremia) (272.0, E78.0) Status: Active Kidney disease, chronic, stage III (moderate, EGFR 30-59 ml/min) (585.3, N18.3 ) Status: Active Need for prophylactic vaccination and inoculation against influenza (V04.81) Status: Active Occlusion and stenosis of carotid [...] neuritis, sciatic nerve) (724.3, M54.30) Status: Active Medications Name Dates Details BABY ASPIRIN, 81MG (Oral Tablet Chewable) - Historical Medication daily (81 MG) Active CENTRUM SILVER (Oral Tablet) - Historical Medication daily Active DONEPEZIL HCL, 10MG (Oral Tablet) - Historical Medication 1/2 tablet daily (10 MG) Active FLOMAX, 0.4MG (Oral Capsule) - Historical Medication at bedtime (0.4 MG) Active FOLIC ACID, 1MG (Oral Tablet) - Historical Medication daily (1 MG) Active HYDROCHLOROTHIAZIDE, 25MG (Oral Tablet) - Historical Medication daily (25 MG) Active LEVOTHYROXINE SODIUM, 75MCG (Oral Tablet) 1 (one) Tablet Tablet daily for 30 days Quantity: 30 {Tablet} Ordered:15-May-2014 Aakash Hernández MD* Start Active LISINOPRIL, 40MG (Oral Tablet) - Historical Medication 1/2 tablet in AM and 1 tablet in PM (40 MG) Active METFORMIN HCL, 500MG (Oral Tablet) - Historical Medication one two times daily (500 MG) Active SIMVASTATIN, 80MG (Oral Tablet) - Historical Medication at bedtime (80 MG) Active TYLENOL PM EXTRA STRENGTH, 500-25MG (Oral Tablet) - Historical Medication at bedtime (500-25 MG) Active CITALOPRAM HYDROBROMIDE, 40MG (Oral Tablet) - Historical Medication one-half tablet daily (40 MG) Inactive DOXAZOSIN MESYLATE, 8MG (Oral Tablet) - Historical Medication one-half tablet at bedtime (8 MG) Inactive FOLIC ACID, 1MG (Oral Tablet) - Historical Medication daily (1 MG) Inactive GLYBURIDE, 5MG (Oral Tablet) - Historical Medication daily (5 MG) Inactive LISINOPRIL, 20MG (Oral Tablet) - Historical Medication one-half tablet of 40mg daily (20 MG) Inactive Novalog Insulin 70/30 - Historical Medication 20 units in AM 10 units in PM Inactive NOVOLOG MIX 70/30, (70-30) 100UNIT/ML (Subcutaneous Suspension) - Historical Medication 20 units in AM and 10 units in PM ((70-30) 100 UNIT/ML) Inactive Allergies and Adverse Reactions Name Dates Details Levaquin *FLUOROQUINOLONES* (Allergy) Status: Active Lortab *ANALGESICS - OPIOID* (Allergy) Status: Active Penicillins (Allergy) Status: Active Past Medical History No Significant Medical History. Procedures Procedure Dates Details Follow up in 6 months Ordered:15-May-2014 ADMINISTRATION OF PNEUMOCOCCAL CONJUGATE VACCINE (G0009) Ordered:15-May-2014 PREVNAR 13 VALENT PNEUMOCOCCAL VACCINE ([id number]) Completed:07-Jun-2014 ADMINISTRATION OF INFLUENZA VACCINE (G0008) Ordered:15-May-2014 HIGH DOSE QUADRIVALENT INFLUENZA VACCINE ([id number]) Completed:07-Jun-2014 Follow up in 4 months Ordered: Follow up in 4 months Ordered:03-Aug-2013 ADMIN INFLUENZA VIRUS VAC: FLU VACC PRSV FREE INC ANTIG ([id number]) Completed: Comments: CAC order ADMINISTRATION OF INFLUENZA VIRUS VACCINE (G0008) Ordered:03-May-2013 Comments: CAC order Follow up in 4 months Ordered:16-Mar-2013 CAROTID BILATERAL US ([id number]) Ordered:09-Nov-2012 Follow up in 4 months Ordered:08-Nov-2012 ADMIN INFLUENZA VIRUS VAC: FLU VACC PRSV FREE INC ANTIG ([id number]) Ordered: ADMINISTRATION OF INFLUENZA VIRUS VACCINE (G0008) Ordered:10-May-2012 CAROTID BILATERAL US ([id number]) Ordered:15-Oct-2011 ADMINISTRATION OF INFLUENZA VIRUS VACCINE (G0008) Ordered:11-Jun-2011 FLU VACC PRSV FREE INC ANTIG ([id number]) Completed:15-Jun-2011 Chronic Kidney Failure *: chronic renal insufficiency Ordered:11-Jun-2011 Follow up in 4 months Ordered: Follow up in 4 months Ordered:28-Aug-2010 EXTREMITY STUDY ([id number]) Ordered:28-Aug-[address] SCAN OF LUMBAR SPINE ([id number]) Ordered:28-Aug-2010 ADMINISTRATION OF INFLUENZA VIRUS VACCINE (G0008) Completed:30-May-2010 FLU VACCINE, 3 YRS & >, IM ([id number]) Completed:24-Apr-2010 Catheterization, Left Heart-Skin Completed:02-Dec-2004 EKG Completed:22-Apr-2010 Flu Vaccine Completed:10-May-2012 Flu Vaccine Completed:15-May-2014 Pneumovax Completed:01-May-2008 Prevnar 13 Completed:15-May-2014 PSA Completed: Comments: (3.58) PSA Completed:03-Aug-2013 Comments: (3.93) Immunization Name Dates Details Fluzone Lot #: [id number] Administered on:11-Jun-2011 Comments: Site: Deltoid (Left) Influenza (3 years and up) Lot #: [id number] Administered on:24-Apr-2010 Comments: Site: Deltoid (Left) Influenza, preserv. free, enhanced immunogncty, IM Lot #: [id number] Administered on:03-May-2013 Comments: Site: Deltoid (Left) Influenza, preserv. free, enhanced immunogncty, IM Lot #: [id number] Administered on:15-May-2014 Comments: Site: Deltoid (Right) Pneumococcal (2 years and up) Administered on:01-May-2008 Pneumococcal conjugate vaccine, 13 valent, IM Lot #: [id number] Administered on:15-May-2014 Comments: Site: Deltoid (Left) Family History Name Dates Details Brother 1 Comments: healthy Status: Active Brother 2 Comments: borderline diabetes Status: Active Father Comments: 72 yo of [place] Status: Active Mother Comments: at 67 of [...] Active Vital Signs Date Test Result Details 15-May-2014 14:27 Temperature 98.5 f Comments: Method: [...] Description Value Details 22-Apr-2010 11:37 ELECTROCARDIOGRAM, COMPLETE (92913) [EKG] IN Interval: 1 mm Pending 28-Feb-2014 09:48 TSH (THYROID STIMULATING HORMONE) (36090) Comments: Items in this order include: Draw [...] ng/mL (Normal) Range: 0.00-4.00 11:15 Urine Microalbumin (51646) Comments: Items in this order include: Draw [...] was ran 140 Days ago. Check by landon. Draw Drawn (Normal) 16-Mar-2013 11:42 CK ([id number]) Comments: Items in this order include: Basic Metabolic Panel, Hemoglobin A1C, Draw Charge[i], ALT, CKILast Hgb A1C was ran 128 Days ago. Check by landon CKI 220 U/L (Normal) Range: 39-308 11:42 ALT (80913) Comments: Items in this order include: Basic Metabolic Panel, Hemoglobin A1C, Draw Charge[i], ALT, CKILast Hgb A1C was ran 128 Days ago. Check by landon ALTI 30 U/L (Normal) Range: 12-78 11:42 VENIPUNCTURE Routine Venipuncture Drawn (Normal) 11:42 A1C 7.8 % (Abnormal) Comments: Items in this order include: Basic Metabolic Panel, Hemoglobin A1C, Draw Charge[i], ALT, CKILast Hgb A1C was ran 128 Days ago. Check by landon Range: 4.6-6.2 Comments: Consistent with diabetes. 11:42 BMP Comments: Items in this order include: Basic Metabolic Panel , Hemoglobin A1C, Draw Charge[i], ALT, CKILast Hgb A1C was ran 128 Days ago. Check by landon GLU 232 mg/dL (Abnormal) Range: 70-110 CA [...] Draw Drawn (Normal) 11-Nov-2012 08:39 LIPID PANEL (34660) Comments: Items in this order include: Draw [...] include: Draw Charge[i], Basic Metabolic Panel, Hemoglobin [id number] Hgb A1C was ran 182 Days ago. Check by kb Range: 4.6-6.2 Comments: Consistent with diabetes. 11:08 BMP Comments: Items in this order include: Draw Charge[i], Basic Metabolic Panel, Hemoglobin [id number] Hgb A1C was ran 182 Days ago. [...] include: Draw Charge[i], Basic Metabolic Panel, Hemoglobin [id number] Hgb A1C was ran 182 Days ago. Check by kb Draw Drawn (Normal) 10-May-2012 11:35 TSH (THYROID STIMULATING HORMONE) ([id number]) Comments: Items in this order include: Draw Charge[i], Basic Metabolic Panel, Hemoglobin A1C, Urine Microalbumin, TSHLast Hgb A1C was ran 208 Days ago. Check by KB TSH 4.90 uIU/ml (Normal) Range: 0.34-5.60 11:35 Urine Microalbumin (31504) Comments: Items in this order include: Draw [...] (Normal) 11-Jun-2011 12:08 CBC-MALE- ORDER THIS ONE! (66966) Comments: Items in this order include: Hemoglobin [...] Comments: Consistent with diabetes. 16:22 Urine Microalbumin (53627) Comments: Items in this order include: Basic [...] (Normal) Range: 135-145 24-Oct-2010 10:57 CREATININE BLOOD (02926) Comments: Verbal order from Dr. Aakash Hernández; Verbal order from Dr. Aakash Hernández eGFR 52.0 mL/min/1.73m2 (Abnormal) Range: >60.0 CREAT 1.4 mg/dL (Abnormal) Range: 0.6-1.3 28-Aug-2010 12:07 TSH (THYROID STIMULATING HORMONE) (68454) TSH 5.29 uIU/ml (Normal) Range: 0.34-5.60 12:07 CBC-MALE- ORDER THIS ONE! (49261) manual diff Not Indicated (Normal) MCHC 35.4 [...] 8.82 10*3/uL (Normal) Range: 4.50-10.50 12:07 CK (50148) CK 199 U/L (Abnormal) Range: 26-190 12:07 ALT (32492) ALT 35 [iU]/L (Normal) Range: 30-65 12:07 [...] Range: 135-145 22-Apr-2010 12:46 BASIC METABOLIC PANEL- [facility] [place] (49584) Comments: See paper results 12:45 CBC PLATELETS & AUTO /DIFF MALE (46496) Comments: See paper results 12:12 HEMOGLOBIN GLYCLATED (HGB A1C) (59030) Comments: See paper results Treatment Plan * VENIPUNCTURE; Ordered: 02/23/2014 * LIPID PANEL ([id number]); Ordered: 06/15/2011 Advance Directives Encounters Medication Entry [facility] On 07-Jun-2014 15:01 to 15:07 Office Visit - COMBO MEDICARE HIGH DOSE INFLUENZA AND PREVNAR PNEUMOVAX ( Renamed from Need for prophylactic vaccination against Streptococcus pneumoniae (pneumococcus) and influenza) (V06.6 | Z23), Atherosclerotic heart disease of [place] coronary artery without angina pectoris (414.01 | [...] lipid testing was done on 12/08/2013 (at CT) and the results included total cholesterol 167 [...] (401.1 | I10), Atherosclerotic heart disease of [place] coronary artery without angina pectoris (414.01 | [...] Hgb A1c was done on 2013 (at CT) and the result was 8.3 %. Most recent microalbumin was done on 12/08 and the result was mcg/mg Creatinine (64). Most recent lipid testing was done on 12/08/2013 (at CT) and the results included total cholesterol 167 [...] Office Visit - Atherosclerotic heart disease of [place] coronary artery without angina pectoris (414.01 | [...] (585.3 | N18.3), Atherosclerotic heart disease of [place] coronary artery without angina pectoris (414.01 | [...] 30-59 ml/min) (585.3), Atherosclerotic heart disease of [place] coronary artery without angina pectoris (414.01 | [...] 30-59 ml/min) (585.3), Atherosclerotic heart disease of [place] coronary artery without angina pectoris (414.01 | [...] myocardial infarction and sudden (Dad suddenly of [place] at the age of 72.). Pertinent social [...] only - Diabetes mellitus type 1 (250.01) [facility] On 22-Apr-2010 12:09 to 12:13 Historical Summary - Pre-operative examination (V72.84), Coronary atherosclerosis (414.00) [facility] On 22-Apr-2010 11:35 to 12:09 Insurance * Chi Lowry ; chuck guarantor * Medicare WPS * BS Plan 65
--- OUTSIDE RECORDS SUMMARY | 2017-04-29 00:23 | XMS REPORT | Continuity of Care Document ---
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 METFORMIN HCL, 500MG (Oral Tablet) - Historical Medication one two times daily (500 MG) Active NAMENDA XR TITRATION PACK, 7 & 14 & 21 &28MG (Oral Capsule Extended Release 24 Hour) 1 (one) Capsule ER 24HR as directed for 30 days * Quantity: 60 {Capsule} Refills: 0 Ordered: Aakash Hernández MD* Start Active SIMVASTATIN, 40MG (Oral Tablet) - Historical Medication at bedtime (40 MG) Active TYLENOL PM EXTRA STRENGTH, 500-25MG [...] Start 22-Nov-2014 End Inactive Comments: faxed to [facility] GLYBURIDE, 5MG (Oral Tablet) - Historical Medication daily (5 MG) Inactive HYDROCHLOROTHIAZIDE, 25MG (Oral Tablet) - Historical Medication daily (25 MG) Inactive LANTUS SOLOSTAR, 100UNIT/ML (Subcutaneous Solution Pen-injector) 5 units units at bedtime for 90 days * Quantity: 450 {Milliliter} Refills: 4 Ordered: Imelda Mena R.N.* Start 22-Nov-2014 End Inactive Comments: rx faxed to [facility] LEVOTHYROXINE SODIUM, 75MCG (Oral Tablet) 1 (one) Tablet Tablet daily for 30 days * Quantity: 30 {Tablet} Refills: 12 Ordered:26-Nov-2014 Imelda Mena R.N.* Start End 26-Nov-2014 Inactive LISINOPRIL, 20MG (Oral Tablet) - Historical Medication one-half tablet of 40mg daily (20 MG) Inactive LISINOPRIL, 5MG (Oral Tablet) - Historical Medication daily (5 MG) Inactive Comments: faxed to [facility] Novalog Insulin 70/30 - Historical Medication 20 [...] Procedures Procedure Dates Details Follow up in 3 weeks Ordered: How to access health information online Completed: Follow up in 6 weeks Ordered:26-Nov-2014 How to access health information online Completed:26-Nov-2014 Follow up in 6 months Ordered:15-May-2014 ADMINISTRATION OF PNEUMOCOCCAL CONJUGATE VACCINE ([id number]) Ordered:15-May-2014 PREVNAR 13 VALENT PNEUMOCOCCAL VACCINE ([id number]) Completed:07-Jun-2014 ADMINISTRATION OF INFLUENZA VACCINE (G0008) Ordered:15-May-2014 HIGH DOSE QUADRIVALENT INFLUENZA VACCINE ([id number]) Completed:07-Jun-2014 Follow up in 4 months Ordered: Follow up in 4 months Ordered:03-Aug-2013 ADMIN INFLUENZA VIRUS VAC: FLU VACC PRSV FREE INC ANTIG ([id number]) Completed: Comments: CAC order ADMINISTRATION OF INFLUENZA VIRUS VACCINE (G0008) Ordered:03-May-2013 Comments: CAC order Follow up in 4 months Ordered:16-Mar-2013 CAROTID BILATERAL US ([id number]) Ordered:09-Nov-2012 Follow up in 4 months Ordered:08-Nov-2012 ADMIN INFLUENZA VIRUS VAC: FLU VACC PRSV FREE INC ANTIG ([id number]) Ordered: ADMINISTRATION OF INFLUENZA VIRUS VACCINE (G0008) Ordered:10-May-2012 CAROTID BILATERAL US ([id number]) Ordered:15-Oct-2011 ADMINISTRATION OF INFLUENZA VIRUS VACCINE (G0008) Ordered:11-Jun-2011 FLU VACC PRSV FREE INC ANTIG ([id number]) Completed:15-Jun-2011 Chronic Kidney Failure *: chronic renal insufficiency Ordered:11-Jun-2011 Follow up in 4 months Ordered: Follow up in 4 months Ordered:28-Aug-2010 EXTREMITY STUDY ([id number]) Ordered:28-Aug-[address] SCAN OF LUMBAR SPINE (60285) Ordered:28-Aug-2010 ADMINISTRATION OF INFLUENZA VIRUS VACCINE (G0008) Completed:30-May-2010 FLU VACCINE, 3 YRS & >, IM ([id number]) Completed:24-Apr-2010 Catheterization, Left Heart-Skin Completed:02-Dec-2004 EKG Completed:22-Apr-2010 EKG Completed:13-Nov-2014 Flu Vaccine Completed:10-May-2012 Flu Vaccine Completed:15-May-2014 Pneumovax Completed:01-May-2008 Prevnar 13 Completed:15-May-2014 PSA Completed: Comments: (3.58) PSA Completed:03-Aug-2013 Comments: (3.93) Immunization Name Dates Details Fluzone Lot #: [id number] Administered on:11-Jun-2011 Comments: Site: Deltoid (Left) Influenza (3 years and up) Lot #: [id number] Administered on:24-Apr-2010 Comments: Site: Deltoid (Left) Influenza, preserv. free, enhanced immunogncty, IM Lot #: [id number] Administered on:03-May-2013 Comments: Site: Deltoid (Left) Influenza, preserv. free, enhanced immunogncty, IM Lot #: [id number] Administered on:15-May-2014 Comments: Site: Deltoid (Right) Pneumococcal (2 years and up) Administered on:01-May-2008 Pneumococcal conjugate vaccine, 13 valent, IM Lot #: [id number] Administered on:15-May-2014 Comments: Site: Deltoid (Left) Family History Name Dates Details Brother 1 Comments: healthy Status: Active Brother 2 Comments: borderline diabetes Status: Active Father Comments: 72 yo of [place] Status: Active Mother Comments: at 67 of [...] Active Vital Signs Date Test Result Details 16:22 Temperature 97.5 f Comments: Method: Temporal [...] Description Value Details 22-Apr-2010 11:37 ELECTROCARDIOGRAM, COMPLETE ([id number]) [EKG] DC Interval: 1 mm Pending 26-Nov-2014 15:59 BMP [...] (Normal) 28-Feb-2014 09:48 TSH (THYROID STIMULATING HORMONE) ([id number]) Comments: Items in this order include: Draw [...] ng/mL (Normal) Range: 0.00-4.00 11:15 Urine Microalbumin (02406) Comments: Items in this order include: Draw [...] kb. Draw Drawn (Normal) 16-Mar-2013 11:42 CK ([id number]) Comments: Items in this order include: Basic Metabolic Panel, Hemoglobin A1C, Draw Charge[i], ALT, CKILast Hgb A1C was ran 128 Days ago. Check by kb CKI 220 U/L (Normal) Range: 39-308 11:42 ALT (04084) Comments: Items in this order include: Basic [...] Draw Drawn (Normal) 11-Nov-2012 08:39 LIPID PANEL ([id number]) Comments: Items in this order include: Draw [...] include: Draw Charge[i], Basic Metabolic Panel, Hemoglobin [id number] Hgb A1C was ran 182 Days ago. Check by kb Range: 4.6-6.2 Comments: Consistent with diabetes. 11:08 BMP Comments: Items in this order include: Draw Charge[i], Basic Metabolic Panel, Hemoglobin [id number] Hgb A1C was ran 182 Days ago. [...] include: Draw Charge[i], Basic Metabolic Panel, Hemoglobin [id number] Hgb A1C was ran 182 Days ago. Check by kb Draw Drawn (Normal) 10-May-2012 11:35 TSH (THYROID STIMULATING HORMONE) ([id number]) Comments: Items in this order include: Draw Charge[i], Basic Metabolic Panel, Hemoglobin A1C, Urine Microalbumin, TSHLast Hgb A1C was ran 208 Days ago. Check by KB TSH 4.90 uIU/ml (Normal) Range: 0.34-5.60 11:35 Urine Microalbumin (78701) Comments: Items in this order include: Draw [...] (Normal) 11-Jun-2011 12:08 CBC-MALE- ORDER THIS ONE! ([id number]) Comments: Items in this order include: Hemoglobin [...] Comments: Consistent with diabetes. 16:22 Urine Microalbumin (48161) Comments: Items in this order include: Basic [...] (Normal) Range: 135-145 24-Oct-2010 10:57 CREATININE BLOOD (13065) Comments: Verbal order from Dr. Aakash Hernández; Verbal order from Dr. Aakash Hernández eGFR 52.0 mL/min/1.73m2 (Abnormal) Range: >60.0 CREAT 1.4 mg/dL (Abnormal) Range: 0.6-1.3 28-Aug-2010 12:07 TSH (THYROID STIMULATING HORMONE) (13319) TSH 5.29 uIU/ml (Normal) Range: 0.34-5.60 12:07 CBC-MALE- ORDER THIS ONE! (72006) manual diff Not Indicated (Normal) MCHC 35.4 [...] 8.82 10*3/uL (Normal) Range: 4.50-10.50 12:07 CK (43168) CK 199 U/L (Abnormal) Range: 26-190 12:07 ALT (38367) ALT 35 [iU]/L (Normal) Range: 30-65 12:07 [...] Range: 135-145 22-Apr-2010 12:46 BASIC METABOLIC PANEL- [facility] ([id number]) Comments: See paper results 12:45 CBC PLATELETS & AUTO /DIFF MALE (75267) Comments: See paper results 12:12 HEMOGLOBIN GLYCLATED (HGB A1C) (08784) Comments: See paper results Treatment Plan * VENIPUNCTURE; Ordered: 02/23/2014 * LIPID PANEL (89051); Ordered: 06/15/2011 Advance Directives Encounters Office Visit [...] tolerance of treatment and fair symptom control. [facility] [place] On 13:23 to 16:54 Office Visit - Controlled diabetes mellitus (250.00 | E11.9), Kidney disease, chronic, stage III (moderate, EGFR 30-59 ml/min) (585.3 | N18.3), Atherosclerotic heart disease of [place] coronary artery without angina pectoris (414.01 | I25.10), Acquired hypothyroidism (244.9 | E03.9), Benign essential hypertension (401.1 | I10), Senile dementia, without behavioral disturbance ( 290.0 | F03.90) Encounter Reason: Transition into care - The patient is transitioning into care from a hospital (dismissed from [facility] on 11/17/2014.) and a summary of care was reviewed ., [ADDITIONAL REASON] Diabetes Type II, Follow Up - The last clinic visit was 9 day(s) ago (dismissed from [facility] on 11/17/2014.). Symptoms do not include [...] lipid testing was done on 2013 (at [place]) and the results included total cholesterol 167 [...] tolerance of treatment and fair symptom control. [facility] [place] On 26-Nov-2014 13:52 to 16:06 Historical Summary [facility] [place] On 23-Nov-2014 10:32 to 10:37 Medication Entry - Controlled diabetes mellitus (250.00 | E11.9) [facility] [place] On 22-Nov-2014 14:11 to 14:17 Medication Entry [facility] [place] On 07-Jun-2014 15:01 to 15:07 Office Visit - COMBO MEDICARE HIGH DOSE INFLUENZA AND PREVNAR PNEUMOVAX ( Renamed from Need for prophylactic vaccination against Streptococcus pneumoniae (pneumococcus) and influenza) (V06.6 | Z23), Atherosclerotic heart disease of [place] coronary artery without angina pectoris (414.01 | [...] lipid testing was done on 12/08/2013 (at [place]) and the results included total cholesterol 167 [...] fat diet, aspirin, MARCUS inhibitors and statins. [facility] [place] On 15-May-2014 14:23 to 16:08 Medication Entry [facility] [place] On 12:04 to 12:12 Office Visit - Controlled diabetes mellitus (250.00 | E11.9), Benign essential hypertension (401.1 | I10), Atherosclerotic heart disease of [place] coronary artery without angina pectoris (414.01 | [...] Hgb A1c was done on 2013 (at [place]) and the result was 8.3 %. Most recent microalbumin was done on 12/08 and the result was mcg/mg Creatinine (64). Most recent lipid testing was done on 12/08/2013 (at [place]) and the results included total cholesterol 167 [...] fat diet, aspirin, MARCUS inhibitors and statins. [facility] [place] On 11:49 to 16:18 Historical Summary [facility] [place] On 10:50 to 10:53 Office Visit - Atherosclerotic heart disease of [place] coronary artery without angina pectoris (414.01 | [...] fat diet, aspirin, MARCUS inhibitors and statins. [facility] [place] On 03-Aug-2013 08:48 to 11:10 Historical Summary [facility] [place] On 02-Aug-2013 10:28 to 10:30 Nurse Visit - Need for prophylactic vaccination and inoculation against influenza (V04.81) [facility] [place] On 03-May-2013 12:59 to 13:01 Office Visit - Controlled diabetes mellitus (250.00 | E11.9), Kidney disease, chronic, stage III (moderate, EGFR 30-59 ml/min) (585.3 | N18.3), Atherosclerotic heart disease of [place] coronary artery without angina pectoris (414.01 | [...] fat diet, aspirin, MARCUS inhibitors and statins. [facility] [place] On 16-Mar-2013 10:17 to 11:40 Office Visit - Benign essential hypertension (401.1 | I10), Kidney disease, chronic, stage III (GFR 30-59 ml/min) (585.3), Atherosclerotic heart disease of [place] coronary artery without angina pectoris (414.01 | [...] fat diet, aspirin, MARCUS inhibitors and statins. [facility] [place] On 08-Nov-2012 10:08 to 11:01 Office Visit - Fluzone High Dose MEDICARE VACCINE AGAINST INFLUENZA (V04.81), Type II diabetes mellitus (250.00), Hypertension, benign (401.1), Peripheral vascular disease (Renamed from Peripheral blood vessel disorder) (443.9 | I73.9) , Kidney disease, chronic, stage III (GFR 30-59 ml/min) (585.3), Atherosclerotic heart disease of [place] coronary artery without angina pectoris (414.01 | [...] fat diet, aspirin, MARCUS inhibitors and statins. [facility] [place] 10-May-2012 to 12-May-2012 Office Visit - Type [...] fat diet, aspirin, MARCUS inhibitors and statins. [facility] [place] 15-Oct-2011 to 18-Oct-2011 Historical Summary [facility] [place] On 14-Oct-2011 15:43 to 16:07 Office Visit [...] of oral contraceptives, visual disturbances or weakness. [facility] [place] On 11-Jun-2011 11:27 to 12:04 Historical Summary [facility] [place] On 11-Jun-2011 08:17 to 08:20 Office Visit [...] of oral contraceptives, visual disturbances or weakness. [facility] [place] to Lab entry only - Diabetes mellitus (250.00) [facility] [place] On 24-Oct-2010 10:43 to 10:45 Office Visit [...] good tolerance of treatment and good symptom control.[facility] [place] 28-Aug-2010 to 29-Aug-2010 Office Visit - Need [...] myocardial infarction and sudden (Dad suddenly of [place] at the age of 72.). Pertinent social [...] last visit. Onset was 15 year(s) ago. [facility] [place] 24-Apr-2010 to 30-Apr-2010 Lab entry only - Diabetes mellitus type 1 (250.01), Hypertension, benign ( 401.1), Hypercholesterolemia (272.0) [facility] [place] On 22-Apr-2010 12:43 to 14:00 Lab entry only - Diabetes mellitus type 1 (250.01) [facility] On 22-Apr-2010 12:09 to 12:13 Historical Summary - Pre-operative examination (V72.84), Coronary atherosclerosis (414.00) [facility] On 22-Apr-2010 11:35 to 12:09 Insurance * Chi Lowry ; chuck guarantor * Medicare WPS * BS Plan 65
--- OUTSIDE RECORDS SUMMARY | 2017-04-29 00:24 | XMS REPORT | Continuity of Care Document ---
Author Author [facility] Organization [facility] Address [address] [place] [address] Phone Care Team Providers Care Business Law Instructor Name Role Phone Aakash Hernández MD PP Aakash Hernández MD Unavailable Shaylee Rajput Unavailable Unavailable Josie Allison Unavailable Unavailable Problems Name Dates Details Acquired hypothyroidism (244.9, E03.9) Status: Active Anemia (Renamed from Absolute anemia) (285.9, D64.9) Status: Active Atherosclerosis of [place] coronary artery of [place] heart without angina pectoris (414.01, I25.10) Status: [...] 100UNIT/ML (Subcutaneous Solution Pen-injector) 40 units in AM and 35 units in PM. for 30 days Quantity: 5 {Pre-filled_Pen_Syringe} Ordered:23-May-2015 Aakash Hernández MD* Start 23-May-2015 Active LISINOPRIL, 5MG (Oral Tablet) 1 (one) [...] Start 22-Nov-2014 End Inactive Comments: faxed to [facility] GLYBURIDE, 5MG (Oral Tablet) - Historical Medication daily (5 MG) Inactive HYDROCHLOROTHIAZIDE, 25MG (Oral Tablet) - Historical Medication daily (25 MG) Inactive LANTUS SOLOSTAR, 100UNIT/ML (Subcutaneous Solution Pen-injector) 5 units units at bedtime for 90 days * Quantity: 450 {Milliliter} Refills: 4 Ordered: Imelda Mena R.N.* Start 22-Nov-2014 End Inactive Comments: rx faxed to [facility] LEVOTHYROXINE SODIUM, 75MCG (Oral Tablet) 1 (one) Tablet Tablet daily for 30 days * Quantity: 30 {Tablet} Refills: 12 Ordered:26-Nov-2014 Imelda Mena R.N.* Start End 26-Nov-2014 Inactive LISINOPRIL, 20MG (Oral Tablet) - Historical Medication one-half tablet of 40mg daily (20 MG) Inactive LISINOPRIL, 5MG (Oral Tablet) - Historical Medication daily (5 MG) Inactive Comments: faxed to [facility] NAMENDA XR TITRATION PACK, 7 & 14 [...] Procedures Procedure Dates Details Follow up in 2 months Ordered:07-May-2015 How to access health information online Completed:07-May-2015 Follow up in 6 weeks Ordered:26-Mar-2015 How to access health information online Completed:26-Mar-2015 INFLUENZA QUADRIVALENT VAC: FLU VACC ([id number]) Completed:27-Mar-2015 ADMINISTRATION OF INFLUENZA VIRUS VACCINE (G0008) [...] (G0009) Ordered:15-May-2014 PREVNAR 13 VALENT PNEUMOCOCCAL VACCINE ([id number]) Completed:07-Jun-2014 ADMINISTRATION OF INFLUENZA VACCINE (G0008) Ordered:15-May-2014 HIGH DOSE QUADRIVALENT INFLUENZA VACCINE ([id number]) Completed:07-Jun-2014 Follow up in 4 months Ordered: Follow up in 4 months Ordered:03-Aug-2013 ADMIN INFLUENZA VIRUS VAC: FLU VACC PRSV FREE INC ANTIG ([id number]) Completed: Comments: CAC order ADMINISTRATION OF INFLUENZA VIRUS VACCINE (G0008) Ordered:03-May-2013 Comments: CAC order Follow up in 4 months Ordered:16-Mar-2013 CAROTID BILATERAL US ([id number]) Ordered:09-Nov-2012 Follow up in 4 months Ordered:08-Nov-2012 ADMIN INFLUENZA VIRUS VAC: FLU VACC PRSV FREE INC ANTIG ([id number]) Ordered: ADMINISTRATION OF INFLUENZA VIRUS VACCINE (G0008) Ordered:10-May-2012 CAROTID BILATERAL US ([id number]) Ordered:15-Oct-2011 ADMINISTRATION OF INFLUENZA VIRUS VACCINE (G0008) Ordered:11-Jun-2011 FLU VACC PRSV FREE INC ANTIG ([id number]) Completed:15-Jun-2011 Chronic Kidney Failure *: chronic renal insufficiency Ordered:11-Jun-2011 Follow up in 4 months Ordered: Follow up in 4 months Ordered:28-Aug-2010 EXTREMITY STUDY ([id number]) Ordered:28-Aug-[address] SCAN OF LUMBAR SPINE ([id number]) Ordered:28-Aug-2010 ADMINISTRATION OF INFLUENZA VIRUS VACCINE (G0008) Completed:30-May-2010 FLU VACCINE, 3 YRS & >, IM ([id number]) Completed:24-Apr-2010 Catheterization, Left Heart-Skin Completed:02-Dec-2004 EKG Completed:13-Nov-2014 EKG Completed:22-Apr-2010 Flu Vaccine Completed:10-May-2012 Flu Vaccine Completed:26-Mar-2015 Pneumovax Completed:01-May-2008 Prevnar 13 Completed:15-May-2014 PSA Completed:03-Aug-2013 Comments: (3.93) PSA Completed: Comments: (3.58) Immunization Name Dates Details Fluzone Lot #: [id number] Administered on:11-Jun-2011 Comments: Site: Deltoid (Left) Influenza (3 years and up) Lot #: [id number] Administered on:24-Apr-2010 Comments: Site: Deltoid (Left) Influenza, preserv. free, enhanced immunogncty, IM Lot #: [id number] Administered on:26-Mar-2015 Comments: Site: Deltoid (Left) Influenza, preserv. free, enhanced immunogncty, IM Lot #: [id number] Administered on:03-May-2013 Comments: Site: Deltoid (Left) Influenza, preserv. free, enhanced immunogncty, IM Lot #: [id number] Administered on:15-May-2014 Comments: Site: Deltoid (Right) Pneumococcal (2 years and up) Administered on:01-May-2008 Pneumococcal conjugate vaccine, 13 valent, IM Lot #: [id number] Administered on:15-May-2014 Comments: Site: Deltoid (Left) Family [...] Description Value Details 22-Apr-2010 11:37 ELECTROCARDIOGRAM, COMPLETE ([id number]) [EKG] AL Interval: 1 mm Pending 07-May-2015 11:58 A1C [...] (Normal) 28-Feb-2014 09:48 TSH (THYROID STIMULATING HORMONE) ([id number]) Comments: Items in this order include: Draw [...] ng/mL (Normal) Range: 0.00-4.00 11:15 Urine Microalbumin (45414) Comments: Items in this order include: Draw [...] kb. Draw Drawn (Normal) 16-Mar-2013 11:42 CK ([id number]) Comments: Items in this order include: Basic Metabolic Panel, Hemoglobin A1C, Draw Charge[i], ALT, CKILast Hgb A1C was ran 128 Days ago. Check by kb CKI 220 U/L (Normal) Range: 39-308 11:42 ALT ([id number]) Comments: Items in this order include: Basic [...] Draw Drawn (Normal) 11-Nov-2012 08:39 LIPID PANEL ([id number]) Comments: Items in this order include: Draw [...] include: Draw Charge[i], Basic Metabolic Panel, Hemoglobin [id number] Hgb A1C was ran 182 Days ago. Check by kb Range: 4.6-6.2 Comments: Consistent with diabetes. 11:08 BMP Comments: Items in this order include: Draw Charge[i], Basic Metabolic Panel, Hemoglobin [id number] Hgb A1C was ran 182 Days ago. [...] include: Draw Charge[i], Basic Metabolic Panel, Hemoglobin [id number] Hgb A1C was ran 182 Days ago. Check by kb Draw Drawn (Normal) 10-May-2012 11:35 TSH (THYROID STIMULATING HORMONE) ([id number]) Comments: Items in this order include: Draw Charge[i], Basic Metabolic Panel, Hemoglobin A1C, Urine Microalbumin, TSHLast Hgb A1C was ran 208 Days ago. Check by KB TSH 4.90 uIU/ml (Normal) Range: 0.34-5.60 11:35 Urine Microalbumin ([id number]) Comments: Items in this order include: Draw [...] (Normal) 11-Jun-2011 12:08 CBC-MALE- ORDER THIS ONE! ([id number]) Comments: Items in this order include: Hemoglobin [...] Comments: Consistent with diabetes. 16:22 Urine Microalbumin (42417) Comments: Items in this order include: Basic [...] (Normal) Range: 135-145 24-Oct-2010 10:57 CREATININE BLOOD (13001) Comments: Verbal order from Dr. Aakash Hernández; Verbal order from Dr. Aakash Hernández eGFR 52.0 mL/min/1.73m2 (Abnormal) Range: >60.0 CREAT 1.4 mg/dL (Abnormal) Range: 0.6-1.3 28-Aug-2010 12:07 TSH (THYROID STIMULATING HORMONE) (11756) TSH 5.29 uIU/ml (Normal) Range: 0.34-5.60 12:07 CBC-MALE- ORDER THIS ONE! (78188) manual diff Not Indicated (Normal) MCHC 35.4 [...] 8.82 10*3/uL (Normal) Range: 4.50-10.50 12:07 CK ([id number]) CK 199 U/L (Abnormal) Range: 26-190 12:07 ALT (29593) ALT 35 [iU]/L (Normal) Range: 30-65 12:07 [...] Range: 135-145 22-Apr-2010 12:46 BASIC METABOLIC PANEL- [facility] (07126) Comments: See paper results 12:45 CBC PLATELETS & AUTO /DIFF MALE (15542) Comments: See paper results 12:12 HEMOGLOBIN GLYCLATED (HGB A1C) (71963) Comments: See paper results Treatment Plan * VENIPUNCTURE; Ordered: 02/23/2014 * LIPID PANEL ([id number]); Ordered: 06/15/2011 Advance Directives Encounters Office Visit - Kidney disease, chronic, stage [...] was done on 12/11/2014 (done at the [facility]) and the result was 8.4 %. Most [...] tolerance of treatment and fair symptom control. [facility] On 07-May-2015 11:15 to 12:01 Office Visit - Fluzone High Dose MEDICARE VACCINE AGAINST INFLUENZA (V04.81), Controlled diabetes mellitus (250.00 | E11.9), Kidney disease, chronic, stage III (moderate, EGFR 30-59 ml/min) (585.3 | N18.3), Benign essential hypertension (401.1 | I10), Atherosclerosis of [place] coronary artery of [place] heart without angina pectoris (414.01 | I25.10) [...] was done on 12/11/2014 (done at the [facility]) and the result was 8.4 %. Most [...] tolerance of treatment and fair symptom control. [facility] On 26-Mar-2015 08:43 to 11:48 Office Visit - Controlled diabetes mellitus (250.00 | E11.9), Atherosclerosis of [place] coronary artery of [place] heart without angina pectoris (414.01 | I25.10), [...] tolerance of treatment and fair symptom control. [facility] On 13:35 to 16:41 Office Visit [...] tolerance of treatment and fair symptom control. [facility] On 13:23 to 16:54 Office Visit - Controlled diabetes mellitus (250.00 | E11.9), Kidney disease, chronic, stage III (moderate, EGFR 30-59 ml/min) (585.3 | N18.3), Atherosclerotic heart disease of [place] coronary artery without angina pectoris (414.01 | I25.10), Acquired hypothyroidism (244.9 | E03.9), Benign essential hypertension (401.1 | I10), Senile dementia, without behavioral disturbance ( 290.0 | F03.90) Encounter Reason: Transition into care - The patient is transitioning into care from a hospital (dismissed from [facility] on 11/17/2014.) and a summary of care was reviewed ., [ADDITIONAL REASON] Diabetes Type II, Follow Up - The last clinic visit was 9 day(s) ago (dismissed from [facility] on 11/17/2014.). Symptoms do not include [...] lipid testing was done on 2013 (at [facility]) and the results included total cholesterol 167 [...] tolerance of treatment and fair symptom control. [facility] On 26-Nov-2014 13:52 to 16:06 Historical Summary [facility] On 23-Nov-2014 10:32 to 10:37 Medication Entry - Controlled diabetes mellitus (250.00 | E11.9) [facility] On 22-Nov-2014 14:11 to 14:17 Medication Entry [facility] On 07-Jun-2014 15:01 to 15:07 Office Visit - COMBO MEDICARE HIGH DOSE INFLUENZA AND PREVNAR PNEUMOVAX ( Renamed from Need for prophylactic vaccination against Streptococcus pneumoniae (pneumococcus) and influenza) (V06.6 | Z23), Atherosclerotic heart disease of [place] coronary artery without angina pectoris (414.01 | [...] lipid testing was done on 12/08/2013 (at [facility]) and the results included total cholesterol 167 [...] fat diet, aspirin, MARCUS inhibitors and statins. [facility] On 15-May-2014 14:23 to 16:08 Medication Entry [facility] On 12:04 to 12:12 Office Visit - Controlled diabetes mellitus (250.00 | E11.9), Benign essential hypertension (401.1 | I10), Atherosclerotic heart disease of [place] coronary artery without angina pectoris (414.01 | [...] Hgb A1c was done on 2013 (at [facility]) and the result was 8.3 %. Most recent microalbumin was done on 12/08 and the result was mcg/mg Creatinine (64). Most recent lipid testing was done on 12/08/2013 (at [facility]) and the results included total cholesterol 167 [...] fat diet, aspirin, MARCUS inhibitors and statins. [facility] On 11:49 to 16:18 Historical Summary [facility] On 10:50 to 10:53 Office Visit - Atherosclerotic heart disease of [place] coronary artery without angina pectoris (414.01 | [...] fat diet, aspirin, MARCUS inhibitors and statins. [facility] On 03-Aug-2013 08:48 to 11:10 Historical Summary [facility] On 02-Aug-2013 10:28 to 10:30 Nurse Visit - Need for prophylactic vaccination and inoculation against influenza (V04.81) [facility] On 03-May-2013 12:59 to 13:01 Office Visit - Controlled diabetes mellitus (250.00 | E11.9), Kidney disease, chronic, stage III (moderate, EGFR 30-59 ml/min) (585.3 | N18.3), Atherosclerotic heart disease of [place] coronary artery without angina pectoris (414.01 | [...] fat diet, aspirin, MARCUS inhibitors and statins. [facility] On 16-Mar-2013 10:17 to 11:40 Office Visit - Benign essential hypertension (401.1 | I10), Kidney disease, chronic, stage III (GFR 30-59 ml/min) (585.3), Atherosclerotic heart disease of [place] coronary artery without angina pectoris (414.01 | [...] fat diet, aspirin, MARCUS inhibitors and statins. [facility] On 08-Nov-2012 10:08 to 11:01 Office Visit - Fluzone High Dose MEDICARE VACCINE AGAINST INFLUENZA (V04.81), Type II diabetes mellitus (250.00), Hypertension, benign (401.1), Peripheral vascular disease (Renamed from Peripheral blood vessel disorder) (443.9 | I73.9) , Kidney disease, chronic, stage III (GFR 30-59 ml/min) (585.3), Atherosclerotic heart disease of [place] coronary artery without angina pectoris (414.01 | [...] fat diet, aspirin, MARCUS inhibitors and statins. [facility] 10-May-2012 to 12-May-2012 Office Visit - [...] fat diet, aspirin, MARCUS inhibitors and statins. [facility] 15-Oct-2011 to 18-Oct-2011 Historical Summary [facility] On 14-Oct-2011 15:43 to 16:07 Office [...] of oral contraceptives, visual disturbances or weakness. [facility] On 11-Jun-2011 11:27 to 12:04 Historical Summary [facility] On 11-Jun-2011 08:17 to 08:20 Office [...] of oral contraceptives, visual disturbances or weakness. [facility] to Lab entry only - Diabetes mellitus (250.00) [facility] On 24-Oct-2010 10:43 to 10:45 Office [...] good tolerance of treatment and good symptom control.[facility] 28-Aug-2010 to 29-Aug-2010 Office Visit - [...] last visit. Onset was 15 year(s) ago. [facility] 24-Apr-2010 to 30-Apr-2010 Lab entry only - Diabetes mellitus type 1 (250.01), Hypertension, benign ( 401.1), Hypercholesterolemia (272.0) [facility] On 22-Apr-2010 12:43 to 14:00 Lab entry only - Diabetes mellitus type 1 (250.01) [facility] On 22-Apr-2010 12:09 to 12:13 Historical Summary - Pre-operative examination (V72.84), Coronary atherosclerosis (414.00) [facility] On 22-Apr-2010 11:35 to 12:09 Insurance * Chi Lowry ; chuck guarantor * Medicare WPS * BS Plan 65
--- NOTE | 2017-04-29 00:25 | ED Respiratory ---
General Stated Complaint: WET LUNG SOUNDS Source: patient, EMS, RN notes reviewed, senior living records, caregiver Exam Limitations: clinical condition History of Present Illness Time seen by provider: 00:17 Initial Comments Patient presents to ER by EMS with a chief complaint that he was having wet lung sounds on nursing assessment tonight at the [facility]. His sats were also found to be in the 80s so they were started him on oxygen and called EMS. EMS said they got him up to 96% on nonrebreather. They were trying to place an IV in him but he took a swing at the EMS member and so the IV was not placed. The patient is pleasant and gives his name but does not answer any other questions or give any history. EMS notes that he had a lot of upper airway secretions but they couldn't hear anything in his lungs particularly. He received 1 DuoNeb in the senior living prior to EMS transport. Review of his senior living records demonstrates a history of diabetes and his blood sugar was over 200 prior to EMS transport. Allergies and Home Medications Allergies Coded Allergies: hydrocodone (Unverified Allergy, Unknown, 04/29/17) levofloxacin (Unverified Allergy, Unknown, 04/29/17) Uncoded Allergies: PCN (Allergy, Unknown, 04/29/17) Constitutional: see HPI (a complete review of systems is unable to be obtained as the patient is demented and does not give much history.) Past Wrouihe-Sfacpr-Rirgud Hx Patient Social History Recent Foreign Travel: No Contact w/Someone Who Travel: No Physical Exam Vital Signs Vital Sign - Last 12Hours 04/29/17 00:20 Temp 97.5 Pulse 61 Resp 24 B/P (MAP) 141/86 Pulse Ox 95 O2 Delivery Non Rebreather O2 Flow Rate 15.00 FiO2 100 Capillary Refill : General Appearance: WD/WN, mild distress Eyes: Bilateral Eye Normal Inspection, Bilateral Eye PERRL, Bilateral Eye EOMI HEENT: PERRL/EOMI, TMs normal, pharynx normal Neck: non-tender, normal inspection Respiratory: chest non-tender, no respiratory distress, no accessory muscle use , rales (right-sided), rhonchi (bilateral mixed with upper airway sounds.) Cardiovascular: normal peripheral pulses, regular rate, rhythm, no JVD, other ( 1+ pitting edema bilateral lower extremities; distant heart sounds) Gastrointestinal: normal bowel sounds, non tender, soft Extremities: non-tender, normal inspection, normal capillary refill, pedal edema (1+ bilateral) Neurologic/Psychiatric: alert, other (oriented to self only. Gives no answers other than his name and a few yes or no answers about pain. Demented. Short- term and long-term memory are not intact.) Skin: normal color, warm/dry Lymphatic: no adenopathy Focused Exam Evaluation Lactate Level Laboratory Tests 04/29/17 00:55: Lactic Acid Level 2.11*H Lactic Acid Level Laboratory Tests Test 04/29/17 00:55 Lactic Acid Level 2.11 MMOL/L (0.50-2.00) *H Progress/Results/Core Measures Results/Orders Lab Results Laboratory Tests Test 04/29/17 00:55 Range/Units White Blood Count 17.3 H 4.3-11.0 10^3/uL Red Blood Count 4.83 4.35-5.85 10^6/uL Hemoglobin 13.9 13.3-17.7 G/DL Hematocrit 42 40-54 % Mean Corpuscular Volume 88 80-99 FL Mean Corpuscular Hemoglobin 29 25-34 PG Mean Corpuscular Hemoglobin Concent 33 32-36 G/DL Red Cell Distribution Width 13.6 10.0-14.5 % Platelet Count 221 130-400 10^3/uL Mean Platelet Volume 10.9 H 7.4-10.4 FL Neutrophils (%) (Auto) 77 H 42-75 % Lymphocytes (%) (Auto) 12 12-44 % Monocytes (%) (Auto) 11 0-12 % Eosinophils (%) (Auto) 1 0-10 % Basophils (%) (Auto) 0 0-10 % Neutrophils # (Auto) 13.2 H 1.8-7.8 X 10^3 Lymphocytes # (Auto) 2.0 1.0-4.0 X 10^3 Monocytes # (Auto) 1.9 H 0.0-1.0 X 10^3 Eosinophils # (Auto) 0.1 0.0-0.3 10^3/uL Basophils # (Auto) 0.0 0.0-0.1 10^3/uL Neutrophils % (Manual) 77 % Lymphocytes % (Manual) 7 % Monocytes % (Manual) 8 % Eosinophils % (Manual) 0 % Basophils % (Manual) 0 % Band Neutrophils 4 % Reactive Lymphocytes 4 % Blood Morphology Comment NORMAL Prothrombin Time 12.6 12.2-14.7 SEC INR Comment 0.9 0.8-1.4 Activated Partial Thromboplast Time 32 24-35 SEC Sodium Level 141 135-145 MMOL/L Potassium Level 4.0 3.6-5.0 MMOL/L Chloride Level 103 98-107 MMOL/L Carbon Dioxide Level 26 21-32 MMOL/L Anion Gap 12 5-14 MMOL/L Blood Urea Nitrogen 26 H 7-18 MG/DL Creatinine 1.73 H 0.60-1.30 MG/DL Estimat Glomerular Filtration Rate 38 BUN/Creatinine Ratio 15 Glucose Level 191 H 70-105 MG/DL Lactic Acid Level 2.11 *H 0.50-2.00 MMOL/L Calcium Level 9.2 8.5-10.1 MG/DL Magnesium Level 2.1 1.8-2.4 MG/DL Total Bilirubin 0.6 0.1-1.0 MG/DL Aspartate Amino Transf (AST/SGOT) 24 5-34 U/L Alanine Aminotransferase (ALT/SGPT) 20 0-55 U/L Alkaline Phosphatase 101 40-136 U/L Troponin I < 0.30 <0.30 NG/ML C-Reactive Protein High Sensitivity 4.81 H 0.00-0.50 MG/DL B-Type Natriuretic Peptide 30.9 <100.0 PG/ML Total Protein 7.6 6.4-8.2 GM/DL Albumin 3.8 3.2-4.5 GM/DL My Orders Orders - EJ SHEPARD Troponin I (04/29/17:14) Chest 1 View, Ap/Pa Only (04/29/17:14) Ekg Tracing (04/29/17:14) Saline Lock/Iv-Start (04/29/17:14) Monitor-Rhythm Ecg Trace Only (04/29/17:14) BNP (04/29/17:14) Cbc With Automated Diff (04/29/17:14) Comprehensive Metabolic Panel (04/29/17:14) Magnesium (04/29/17:14) Protime With Inr (04/29/17:14) Partial Thromboplastin Time (04/29/17:14) Ua Culture If Indicated (10/5/17 00:14) Lactic Acid Analyzer (04/29/17 00:22) Blood Culture (04/29/17 00:22) Sputum Culture (04/29/17 00:22) O2 (04/29/17:22) Saline Lock/Iv-Start (04/29/17 00:22) Vital Signs Adult Sepsis Patie Q1HR (04/29/17 00:22) Remove Rings In Anticipation O (04/29/17:22) Hs C Reactive Protein (04/29/17:22) Albuterol Pre-Mix Nebs (Rt) (Proventil P (04/29/17 00:30) Albuterol Pre-Mix Nebs (Rt) (Proventil P (04/29/17 00:20) Albuterol Pre-Mix Nebs (Rt) (Proventil P (04/29/17 00:20) Manual Differential (04/29/17 00:55) Ceftriaxone Injection (Rocephin Injectio (04/29/17 01:30) Ns Iv 1000 Ml (Sodium Chloride 0.9%) (04/29/17 01:37) Ns Iv 1000 Ml (Sodium Chloride 0.9%) (04/29/17 01:37) Cefepime Injection (Maxipime Injection) (04/29/17 01:45) Medications Given in ED Current Medications Medications Dose Ordered Sig/Giselle Route Start Time Stop Time Status Last Admin Dose Admin Ceftriaxone Sodium 1000 mg/ Sodium Chloride 50 ml @ 100 mls/hr ONCE ONCE IV 04/29/17 01:30 04/29/17 01:59 04/29/17 01:36 100 MLS/HR Vital Signs/I&O Vital Sign - Last 12Hours 04/29/17 04/29/17 04/29/17 00:20 00:20 01:42 Temp 97.5 97.8 Pulse 61 78 Resp 24 20 B/P (MAP) 141/86 131/78 Pulse Ox 95 95 92 O2 Delivery Non Rebreather Non Rebreather O2 Flow Rate 15.00 15.00 FiO2 100 Progress Note #1: Time: 00:34 Progress Note CHF exacerbation versus pneumonia with possible sepsis. We'll add a CRP to the workup as well as BNP and chest x-ray. We'll hold off fluids or Lasix until some data comes back. Progress Note #2: Time: 01:11 Progress Note After the breathing treatments the patient was reassessed and his upper airway secretions were cleared by expectoration. His lungs were clear times all blancas. Chest x-ray shows some fluid collection around the left lateral base. Straight catheter was passed but no urine came out. ECG Initial ECG Impression Date: Apr 29, 2017 Initial ECG Impression Time: 00:20 Initial ECG Rate: 61 Initial ECG Rhythm: Normal Sinus Initial ECG Intervals: MD (220) Initial ECG Impression: Nonspecific Changes, 1st Degree AV Block Initial ECG Comparisson: No Previous ECG Available Comment No T-wave elevation or depression Diagnostic Imaging Diagonstic Imaging: Xray Plain Films/CT/US/NM/MRI: chest Comments Left basilar pleural effusion versus infiltrate not seen on prior x-ray. Reviewed: Reviewed by Me Departure Communication (Admissions) Time/Spoke to Admitting Phy: 01:44 Communication Allen: Discussed labs, imaging, findings. He is okay with initial choice of cefepime or Zosyn. Impression Impression: Primary Impression: Left lower lobe pneumonia Qualified Codes: J18.1 - Lobar pneumonia, unspecified organism Additional Impressions: Hypoxia Acute kidney injury (nontraumatic) Disposition: ADMITTED INPATIENT Condition: Stable Admissions Decision to Admit Reason: Admit from ER (General) Decision to Admit/Date: Apr 29, 2017 Time/Decision to Admit Time: 01:58 Departure-Patient Inst. Referrals: VI AKERS DO (PCP/Family) Primary Care Physician Copy Copies To 1: VI AKERS TITUS J Apr 29, 2017 00:24
--- OUTSIDE RECORDS SUMMARY | 2017-04-29 00:25 | XMS REPORT | Continuity of Care Document ---
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, I25.10) [...] - Historical Medication daily (1 MG) Active GLIMEPIRIDE, 2MG (Oral Tablet) 1 (one) Tablet daily for 90 days Quantity: 90 {Tablet} Ordered:22-Nov-2014 Aakash Hernández MD* Start 22-Nov-2014 Active Comments: faxed to [facility] LANTUS SOLOSTAR, 100UNIT/ML (Subcutaneous Solution Pen-injector) 5 units at bedtime for 90 days * Quantity: 450 {Milliliter} Refills: 4 Ordered:22-Nov-2014 Aakash Hernández MD* Start 22-Nov-2014 Active Comments: rx faxed to [facility] LISINOPRIL, 5MG (Oral Tablet) 1 (one) Tablet daily for 90 days * Quantity: 90 {Tablet} Refills: 4 Ordered:26-Nov-2014 Aakash Hernández MD* Start 26-Nov-2014 Active Comments: faxed to [facility] for 2 days. METFORMIN HCL, 500MG (Oral Tablet) - Historical Medication one two times daily (500 MG) Active SIMVASTATIN, 40MG (Oral Tablet) - [...] - Historical Medication daily (25 MG) Inactive LEVOTHYROXINE SODIUM, 75MCG (Oral Tablet) 1 (one) Tablet Tablet daily for 30 days * Quantity: 30 {Tablet} Refills: 12 Ordered:26-Nov-2014 Imelda Mena R.N.* Start End 26-Nov-2014 Inactive LISINOPRIL, 20MG (Oral Tablet) - Historical Medication one-half tablet of 40mg daily (20 MG) Inactive LISINOPRIL, 5MG (Oral Tablet) - Historical Medication daily (5 MG) Inactive Comments: faxed to [facility] Ins[facility] 70/30 - Historical Medication 20 units [...] Dates Details Follow up in 2 months Ordered:26-Nov-2014 How to access health information online Completed:26-Nov-2014 Follow up in 6 months Ordered:15-May-2014 ADMINISTRATION OF PNEUMOCOCCAL CONJUGATE VACCINE (G0009) Ordered:15-May-2014 PREVNAR 13 VALENT PNEUMOCOCCAL VACCINE ([id number]) Completed:07-Jun-2014 ADMINISTRATION OF INFLUENZA VACCINE (G0008) Ordered:15-May-2014 HIGH DOSE QUADRIVALENT INFLUENZA VACCINE ([id number]) Completed:07-Jun-2014 Follow up in 4 months Ordered: Follow up in 4 months Ordered:03-Aug-2013 ADMIN INFLUENZA VIRUS VAC: FLU VACC PRSV FREE INC ANTIG ([id number]) Completed: Comments: CAC order ADMINISTRATION OF INFLUENZA VIRUS VACCINE (G0008) Ordered:03-May-2013 Comments: CAC order Follow up in 4 months Ordered:16-Mar-2013 CAROTID BILATERAL US ([id number]) Ordered:09-Nov-2012 Follow up in 4 months Ordered:08-Nov-2012 ADMIN INFLUENZA VIRUS VAC: FLU VACC PRSV FREE INC ANTIG ([id number]) Ordered: ADMINISTRATION OF INFLUENZA VIRUS VACCINE (G0008) Ordered:10-May-2012 CAROTID BILATERAL US ([id number]) Ordered:15-Oct-2011 ADMINISTRATION OF INFLUENZA VIRUS VACCINE (G0008) Ordered:11-Jun-2011 FLU VACC PRSV FREE INC ANTIG ([id number]) Completed:15-Jun-2011 Chronic Kidney Failure *: chronic renal insufficiency Ordered:11-Jun-2011 Follow up in 4 months Ordered: Follow up in 4 months Ordered:28-Aug-2010 EXTREMITY STUDY ([id number]) Ordered:28-Aug-[address] SCAN OF LUMBAR SPINE ([id number]) Ordered:28-Aug-2010 ADMINISTRATION OF INFLUENZA VIRUS VACCINE (G0008) Completed:30-May-2010 FLU VACCINE, 3 YRS & >, IM ([id number]) Completed:24-Apr-2010 Catheterization, Left Heart-Skin Completed:02-Dec-2004 EKG Completed:13-Nov-2014 EKG Completed:22-Apr-2010 Flu Vaccine Completed:10-May-2012 Flu Vaccine Completed:15-May-2014 Pneumovax Completed:01-May-2008 Prevnar 13 Completed:15-May-2014 PSA Completed:03-Aug-2013 Comments: (3.93) PSA Completed: Comments: (3.58) Immunization Name Dates Details Fluzone Lot #: [id number] Administered on:11-Jun-2011 Comments: Site: Deltoid (Left) Influenza (3 years and up) Lot #: [id number] Administered on:24-Apr-2010 Comments: Site: Deltoid (Left) Influenza, preserv. free, enhanced immunogncty, IM Lot #: [id number] Administered on:03-May-2013 Comments: Site: Deltoid (Left) Influenza, preserv. free, enhanced immunogncty, IM Lot #: [id number] Administered on:15-May-2014 Comments: Site: Deltoid (Right) Pneumococcal (2 years and up) Administered on:01-May-2008 Pneumococcal conjugate vaccine, 13 valent, IM Lot #: [id number] Administered on:15-May-2014 Comments: Site: Deltoid (Left) Family History Name Dates Details Brother 1 Comments: healthy Status: Active Brother 2 Comments: borderline diabetes Status: Active Father Comments: 72 yo of [place] Status: Active Mother Comments: at 67 of [...] Active Vital Signs Date Test Result Details 26-Nov-2014 15:16 Temperature 97.6 f Comments: Method: [...] Description Value Details 22-Apr-2010 11:37 ELECTROCARDIOGRAM, COMPLETE ([id number]) [EKG] VA Interval: 1 mm Pending 28-Feb-2014 09:48 TSH (THYROID STIMULATING HORMONE) (09726) Comments: Items in this order include: Draw [...] ng/mL (Normal) Range: 0.00-4.00 11:15 Urine Microalbumin (63954) Comments: Items in this order include: Draw [...] kb. Draw Drawn (Normal) 16-Mar-2013 11:42 CK ([id number]) Comments: Items in this order include: Basic Metabolic Panel, Hemoglobin A1C, Draw Charge[i], ALT, CKILast Hgb A1C was ran 128 Days ago. Check by kb CKI 220 U/L (Normal) Range: 39-308 11:42 ALT (52405) Comments: Items in this order include: Basic [...] Draw Drawn (Normal) 11-Nov-2012 08:39 LIPID PANEL (24358) Comments: Items in this order include: Draw [...] include: Draw Charge[i], Basic Metabolic Panel, Hemoglobin [id number] Hgb A1C was ran 182 Days ago. Check by kb Range: 4.6-6.2 Comments: Consistent with diabetes. 11:08 BMP Comments: Items in this order include: Draw Charge[i], Basic Metabolic Panel, Hemoglobin [id number] Hgb A1C was ran 182 Days ago. [...] include: Draw Charge[i], Basic Metabolic Panel, Hemoglobin [id number] Hgb A1C was ran 182 Days ago. Check by kb Draw Drawn (Normal) 10-May-2012 11:35 TSH (THYROID STIMULATING HORMONE) ([id number]) Comments: Items in this order include: Draw Charge[i], Basic Metabolic Panel, Hemoglobin A1C, Urine Microalbumin, TSHLast Hgb A1C was ran 208 Days ago. Check by KB TSH 4.90 uIU/ml (Normal) Range: 0.34-5.60 11:35 Urine Microalbumin (33226) Comments: Items in this order include: Draw [...] (Normal) 11-Jun-2011 12:08 CBC-MALE- ORDER THIS ONE! (87631) Comments: Items in this order include: Hemoglobin [...] Comments: Consistent with diabetes. 16:22 Urine Microalbumin (74740) Comments: Items in this order include: Basic [...] (Normal) Range: 135-145 24-Oct-2010 10:57 CREATININE BLOOD (01279) Comments: Verbal order from Dr. Aakahs Hernández; Verbal order from Dr. Aakash Hernández eGFR 52.0 mL/min/1.73m2 (Abnormal) Range: >60.0 CREAT 1.4 mg/dL (Abnormal) Range: 0.6-1.3 28-Aug-2010 12:07 TSH (THYROID STIMULATING HORMONE) (13835) TSH 5.29 uIU/ml (Normal) Range: 0.34-5.60 12:07 CBC-MALE- ORDER THIS ONE! (52610) manual diff Not Indicated (Normal) MCHC 35.4 [...] 8.82 10*3/uL (Normal) Range: 4.50-10.50 12:07 CK (27504) CK 199 U/L (Abnormal) Range: 26-190 12:07 ALT (88064) ALT 35 [iU]/L (Normal) Range: 30-65 12:07 [...] Range: 135-145 22-Apr-2010 12:46 BASIC METABOLIC PANEL- [facility] [place] ([place]8445) Comments: See paper results 12:45 CBC PLATELETS & AUTO /DIFF MALE (37844) Comments: See paper results 12:12 HEMOGLOBIN GLYCLATED (HGB A1C) (55637) Comments: See paper results Treatment Plan * BMP; Ordered: 11/26/2014 * VENIPUNCTURE; Ordered: 11/26/2014 * VENIPUNCTURE; Ordered: 02/23/2014 * LIPID PANEL (01286); Ordered: 06/15/2011 Advance Directives Encounters Review - Controlled diabetes mellitus (250.00 | E11.9), Kidney disease, chronic , stage III (moderate, EGFR 30-59 ml/min) (585.3 | N18.3), Atherosclerotic heart disease of rosebud coronary artery without angina pectoris (414.01 | I25.10 ), Acquired hypothyroidism (244.9 | E03.9), Benign essential hypertension ( 401.1 | I10) Encounter Reason: Transition into care - The patient is transitioning into care from a hospital (dismissed from [facility] on 11/17/2014.) and a summary of care was reviewed ., [ADDITIONAL REASON] Diabetes Type II, Follow Up - The last clinic visit was 9 day(s) ago (dismissed from [facility] on 11/17/2014.). Symptoms do not [...] lipid testing was done on 2013 (at [facility]) and the results included total cholesterol 167 [...] tolerance of treatment and fair symptom control. [facility] On 26-Nov-2014 13:52 Historical Summary [facility] On 23-Nov-2014 10:32 to 10:37 Medication Entry - Controlled diabetes mellitus (250.00 | E11.9) [facility] On 22-Nov-2014 14:11 to 14:17 Medication Entry [facility] On 07-Jun-2014 15:01 to 15:07 Office Visit - COMBO MEDICARE HIGH DOSE INFLUENZA AND PREVNAR PNEUMOVAX ( Renamed from Need for prophylactic vaccination against Streptococcus pneumoniae (pneumococcus) and influenza) (V06.6 | Z23), Atherosclerotic heart disease of rosebud coronary artery without angina pectoris (414.01 | [...] lipid testing was done on 12/08/2013 (at [facility]) and the results included total cholesterol 167 [...] fat diet, aspirin, MARCUS inhibitors and statins. [facility] On 15-May-2014 14:23 to 16:08 Medication Entry [facility] On 12:04 to 12:12 Office Visit - Controlled diabetes mellitus (250.00 | E11.9), Benign essential hypertension (401.1 | I10), Atherosclerotic heart disease of rosebud coronary artery without angina pectoris (414.01 | [...] Hgb A1c was done on 2013 (at [facility]) and the result was 8.3 %. Most recent microalbumin was done on 12/08 and the result was mcg/mg Creatinine (64). Most recent lipid testing was done on 12/08/2013 (at [facility]) and the results included total cholesterol 167 [...] fat diet, aspirin, MARCUS inhibitors and statins. [facility] On 11:49 to 16:18 Historical Summary [facility] On 10:50 to 10:53 Office Visit - Atherosclerotic heart disease of rosebud coronary artery without angina pectoris (414.01 | [...] fat diet, aspirin, MARCUS inhibitors and statins. [facility] On 03-Aug-2013 08:48 to 11:10 Historical Summary [facility] On 02-Aug-2013 10:28 to 10:30 Nurse Visit - Need for prophylactic vaccination and inoculation against influenza (V04.81) [facility] On 03-May-2013 12:59 to 13:01 Office Visit - Controlled diabetes mellitus (250.00 | E11.9), Kidney disease, chronic, stage III (moderate, EGFR 30-59 ml/min) (585.3 | N18.3), Atherosclerotic heart disease of rosebud coronary artery without angina pectoris (414.01 | [...] fat diet, aspirin, MARCUS inhibitors and statins. [facility] On 16-Mar-2013 10:17 to 11:40 Office Visit - Benign essential hypertension (401.1 | I10), Kidney disease, chronic, stage III (GFR 30-59 ml/min) (585.3), Atherosclerotic heart disease of rosebud coronary artery without angina pectoris (414.01 | [...] fat diet, aspirin, MARCUS inhibitors and statins. [facility] On 08-Nov-2012 10:08 to 11:01 Office Visit - Fluzone High Dose MEDICARE VACCINE AGAINST INFLUENZA (V04.81), Type II diabetes mellitus (250.00), Hypertension, benign (401.1), Peripheral vascular disease (Renamed from Peripheral blood vessel disorder) (443.9 | I73.9) , Kidney disease, chronic, stage III (GFR 30-59 ml/min) (585.3), Atherosclerotic heart disease of rosebud coronary artery without angina pectoris (414.01 | [...] fat diet, aspirin, MARCUS inhibitors and statins. [facility] 10-May-2012 to 12-May-2012 Office Visit - Type [...] fat diet, aspirin, MARCUS inhibitors and statins. [facility] 15-Oct-2011 to 18-Oct-2011 Historical Summary [facility] On 14-Oct-2011 15:43 to 16:07 Office Visit [...] of oral contraceptives, visual disturbances or weakness. [facility] On 11-Jun-2011 11:27 to 12:04 Historical Summary [facility] On 11-Jun-2011 08:17 to 08:20 Office Visit [...] of oral contraceptives, visual disturbances or weakness. [facility] to Lab entry only - Diabetes mellitus (250.00) [facility] On 24-Oct-2010 10:43 to 10:45 Office Visit [...] good tolerance of treatment and good symptom control.[facility] 28-Aug-2010 to 29-Aug-2010 Office Visit - Need [...] myocardial infarction and sudden (Dad suddenly of [place] at the age of 72.). Pertinent social [...] last visit. Onset was 15 year(s) ago. 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
--- OUTSIDE RECORDS SUMMARY | 2017-04-29 00:26 | XMS REPORT | Continuity of Care Document ---
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, I25.10) Status: [...] Active LEVEMIR FLEXTOUCH, 100UNIT/ML (Subcutaneous Solution Pen-injector) 15 units two times daily for 30 days Quantity: 2 {Pre-filled_Pen_Syringe} Ordered:26-Mar-2015 Aakash Hernández MD* Start 26-Mar-2015 Active LISINOPRIL, 5MG (Oral Tablet) 1 (one) [...] Start 22-Nov-2014 End Inactive Comments: faxed to [facility] GLYBURIDE, 5MG (Oral Tablet) - Historical Medication daily (5 MG) Inactive HYDROCHLOROTHIAZIDE, 25MG (Oral Tablet) - Historical Medication daily (25 MG) Inactive LANTUS SOLOSTAR, 100UNIT/ML (Subcutaneous Solution Pen-injector) 5 units units at bedtime for 90 days * Quantity: 450 {Milliliter} Refills: 4 Ordered: Imelda Mena R.N.* Start 22-Nov-2014 End Inactive Comments: rx faxed to [facility] LEVOTHYROXINE SODIUM, 75MCG (Oral Tablet) 1 (one) Tablet Tablet daily for 30 days * Quantity: 30 {Tablet} Refills: 12 Ordered:26-Nov-2014 Imelda Mena R.N.* Start End 26-Nov-2014 Inactive LISINOPRIL, 20MG (Oral Tablet) - Historical Medication one-half tablet of 40mg daily (20 MG) Inactive LISINOPRIL, 5MG (Oral Tablet) - Historical Medication daily (5 MG) Inactive Comments: faxed to [facility] NAMENDA XR TITRATION PACK, 7 & 14 [...] Significant Medical History. Procedures Procedure Dates Details INFLUENZA QUADRIVALENT VAC: FLU VACC ([id number]) Ordered:26-Mar-2015 ADMINISTRATION OF INFLUENZA VIRUS VACCINE (G0008) Ordered:26-Mar-2015 [...] (G0009) Ordered:15-May-2014 PREVNAR 13 VALENT PNEUMOCOCCAL VACCINE ([id number]) Completed:07-Jun-2014 ADMINISTRATION OF INFLUENZA VACCINE (G0008) Ordered:15-May-2014 HIGH DOSE QUADRIVALENT INFLUENZA VACCINE ([id number]) Completed:07-Jun-2014 Follow up in 4 months Ordered: Follow up in 4 months Ordered:03-Aug-2013 ADMIN INFLUENZA VIRUS VAC: FLU VACC PRSV FREE INC ANTIG ([id number]) Completed: Comments: CAC order ADMINISTRATION OF INFLUENZA VIRUS VACCINE (G0008) Ordered:03-May-2013 Comments: CAC order Follow up in 4 months Ordered:16-Mar-2013 CAROTID BILATERAL US ([id number]) Ordered:09-Nov-2012 Follow up in 4 months Ordered:08-Nov-2012 ADMIN INFLUENZA VIRUS VAC: FLU VACC PRSV FREE INC ANTIG ([id number]) Ordered: ADMINISTRATION OF INFLUENZA VIRUS VACCINE (G0008) Ordered:10-May-2012 CAROTID BILATERAL US ([id number]) Ordered:15-Oct-2011 ADMINISTRATION OF INFLUENZA VIRUS VACCINE (G0008) Ordered:11-Jun-2011 FLU VACC PRSV FREE INC ANTIG ([id number]) Completed:15-Jun-2011 Chronic Kidney Failure *: chronic renal insufficiency Ordered:11-Jun-2011 Follow up in 4 months Ordered: Follow up in 4 months Ordered:28-Aug-2010 EXTREMITY STUDY ([id number]) Ordered:28-Aug-[address] SCAN OF LUMBAR SPINE ([id number]) Ordered:28-Aug-2010 ADMINISTRATION OF INFLUENZA VIRUS VACCINE (G0008) Completed:30-May-2010 FLU VACCINE, 3 YRS & >, IM ([id number]) Completed:24-Apr-2010 Catheterization, Left Heart-Skin Completed:02-Dec-2004 EKG Completed:22-Apr-2010 EKG Completed:13-Nov-2014 Flu Vaccine Completed:10-May-2012 Flu Vaccine Completed:15-May-2014 Pneumovax Completed:01-May-2008 Prevnar 13 Completed:15-May-2014 PSA Completed: Comments: (3.58) PSA Completed:03-Aug-2013 Comments: (3.93) Immunization Name Dates Details Fluzone Lot #: [id number] Administered on:11-Jun-2011 Comments: Site: Deltoid (Left) Influenza (3 years and up) Lot #: [id number] Administered on:24-Apr-2010 Comments: Site: Deltoid (Left) Influenza, preserv. free, enhanced immunogncty, IM Lot #: [id number] Administered on:03-May-2013 Comments: Site: Deltoid (Left) Influenza, preserv. free, enhanced immunogncty, IM Lot #: [id number] Administered on:15-May-2014 Comments: Site: Deltoid (Right) Pneumococcal (2 years and up) Administered on:01-May-2008 Pneumococcal conjugate vaccine, 13 valent, IM Lot #: [id number] Administered on:15-May-2014 Comments: Site: Deltoid (Left) Family History Name Dates Details Brother 1 Comments: healthy Status: Active Brother 2 Comments: borderline diabetes Status: Active Father Comments: 72 yo [place] Status: Active Mother Comments: at 67 of [...] Active Vital Signs Date Test Result Details 26-Mar-2015 10:28 Temperature 97.3 f Comments: Method: [...] Description Value Details 22-Apr-2010 11:37 ELECTROCARDIOGRAM, COMPLETE (17872) [EKG] MT Interval: 1 mm Pending 26-Nov-2014 15:59 BMP [...] (Normal) 28-Feb-2014 09:48 TSH (THYROID STIMULATING HORMONE) ([id number]) Comments: Items in this order include: Draw [...] ng/mL (Normal) Range: 0.00-4.00 11:15 Urine Microalbumin (34543) Comments: Items in this order include: Draw [...] kb. Draw Drawn (Normal) 16-Mar-2013 11:42 CK ([id number]) Comments: Items in this order include: Basic Metabolic Panel, Hemoglobin A1C, Draw Charge[i], ALT, CKILast Hgb A1C was ran 128 Days ago. Check by kb CKI 220 U/L (Normal) Range: 39-308 11:42 ALT (14292) Comments: Items in this order include: Basic [...] Draw Drawn (Normal) 11-Nov-2012 08:39 LIPID PANEL (30806) Comments: Items in this order include: Draw [...] include: Draw Charge[i], Basic Metabolic Panel, Hemoglobin [id number] Hgb A1C was ran 182 Days ago. Check by kb Range: 4.6-6.2 Comments: Consistent with diabetes. 11:08 BMP Comments: Items in this order include: Draw Charge[i], Basic Metabolic Panel, Hemoglobin [id number] Hgb A1C was ran 182 Days ago. [...] include: Draw Charge[i], Basic Metabolic Panel, Hemoglobin [id number] Hgb A1C was ran 182 Days ago. Check by kb Draw Drawn (Normal) 10-May-2012 11:35 TSH (THYROID STIMULATING HORMONE) (07722) Comments: Items in this order include: Draw Charge[i], Basic Metabolic Panel, Hemoglobin A1C, Urine Microalbumin, TSHLast Hgb A1C was ran 208 Days ago. Check by KB TSH 4.90 uIU/ml (Normal) Range: 0.34-5.60 11:35 Urine Microalbumin (40275) Comments: Items in this order include: Draw [...] (Normal) 11-Jun-2011 12:08 CBC-MALE- ORDER THIS ONE! ([id number]) Comments: Items in this order include: Hemoglobin [...] Comments: Consistent with diabetes. 16:22 Urine Microalbumin (44704) Comments: Items in this order include: Basic [...] (Normal) Range: 135-145 24-Oct-2010 10:57 CREATININE BLOOD (46240) Comments: Verbal order from Dr. Aakash Hernández; Verbal order from Dr. Aakash Hernández eGFR 52.0 mL/min/1.73m2 (Abnormal) Range: >60.0 CREAT 1.4 mg/dL (Abnormal) Range: 0.6-1.3 28-Aug-2010 12:07 TSH (THYROID STIMULATING HORMONE) (19677) TSH 5.29 uIU/ml (Normal) Range: 0.34-5.60 12:07 CBC-MALE- ORDER THIS ONE! (03347) manual diff Not Indicated (Normal) MCHC 35.4 [...] 8.82 10*3/uL (Normal) Range: 4.50-10.50 12:07 CK (55799) CK 199 U/L (Abnormal) Range: 26-190 12:07 ALT (32580) ALT 35 [iU]/L (Normal) Range: 30-65 12:07 [...] Range: 135-145 22-Apr-2010 12:46 BASIC METABOLIC PANEL- [facility] ([id number]) Comments: See paper results 12:45 CBC PLATELETS & AUTO /DIFF MALE (47361) Comments: See paper results 12:12 HEMOGLOBIN GLYCLATED (HGB A1C) (60819) Comments: See paper results Treatment Plan * VENIPUNCTURE; Ordered: 02/23/2014 * LIPID PANEL (08996); Ordered: 06/15/2011 Advance Directives Encounters Review - Fluzone High Dose MEDICARE VACCINE AGAINST INFLUENZA (V04.81) Encounter Reason: Diabetes Type II, Follow [...] was done on 12/11/2014 (done at the [facility]) and the result was 8.4 %. Most [...] tolerance of treatment and fair symptom control. 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 [facility] On 13:35 to 16:41 Office Visit - [...] tolerance of treatment and fair symptom control. [facility] On 13:23 to 16:54 Office Visit - Controlled diabetes mellitus (250.00 | E11.9), Kidney disease, chronic, stage III (moderate, EGFR 30-59 ml/min) (585.3 | N18.3), Atherosclerotic heart disease of [place] coronary artery without angina pectoris (414.01 | I25.10), Acquired hypothyroidism (244.9 | E03.9), Benign essential hypertension (401.1 | I10), Senile dementia, without behavioral disturbance ( 290.0 | F03.90) Encounter Reason: Transition into care - The patient is transitioning into care from a hospital (dismissed from [facility] on 11/17/2014.) and a summary of care was reviewed ., [ADDITIONAL REASON] Diabetes Type II, Follow Up - The last clinic visit was 9 day(s) ago (dismissed from [facility] on 11/17/2014.). Symptoms do not [...] lipid testing was done on 2013 (at [facility]) and the results included total cholesterol 167 [...] tolerance of treatment and fair symptom control. [facility] On 26-Nov-2014 13:52 to 16:06 Historical Summary [facility] On 23-Nov-2014 10:32 to 10:37 Medication Entry - Controlled diabetes mellitus (250.00 | E11.9) [facility] On 22-Nov-2014 14:11 to 14:17 Medication Entry [facility] On 07-Jun-2014 15:01 to 15:07 Office Visit - COMBO MEDICARE HIGH DOSE INFLUENZA AND PREVNAR PNEUMOVAX ( Renamed from Need for prophylactic vaccination against Streptococcus pneumoniae (pneumococcus) and influenza) (V06.6 | Z23), Atherosclerotic heart disease of [place] coronary artery without angina pectoris (414.01 | [...] lipid testing was done on 12/08/2013 (at [facility]) and the results included total cholesterol 167 [...] fat diet, aspirin, MARCUS inhibitors and statins. [facility] On 15-May-2014 14:23 to 16:08 Medication Entry [facility] On 12:04 to 12:12 Office Visit - Controlled diabetes mellitus (250.00 | E11.9), Benign essential hypertension (401.1 | I10), Atherosclerotic heart disease of [place] coronary artery without angina pectoris (414.01 | [...] Hgb A1c was done on 2013 (at [facility]) and the result was 8.3 %. Most recent microalbumin was done on 12/08 and the result was mcg/mg Creatinine (64). Most recent lipid testing was done on 12/08/2013 (at [facility]) and the results included total cholesterol 167 [...] fat diet, aspirin, MARCUS inhibitors and statins. [facility] On 11:49 to 16:18 Historical Summary [facility] On 10:50 to 10:53 Office Visit - Atherosclerotic heart disease of [place] coronary artery without angina pectoris (414.01 | [...] fat diet, aspirin, MARCUS inhibitors and statins. [facility] On 03-Aug-2013 08:48 to 11:10 Historical Summary [facility] On 02-Aug-2013 10:28 to 10:30 Nurse Visit - Need for prophylactic vaccination and inoculation against influenza (V04.81) [facility] On 03-May-2013 12:59 to 13:01 Office Visit - Controlled diabetes mellitus (250.00 | E11.9), Kidney disease, chronic, stage III (moderate, EGFR 30-59 ml/min) (585.3 | N18.3), Atherosclerotic heart disease of [place] coronary artery without angina pectoris (414.01 | [...] fat diet, aspirin, MARCUS inhibitors and statins. [facility] On 16-Mar-2013 10:17 to 11:40 Office Visit - Benign essential hypertension (401.1 | I10), Kidney disease, chronic, stage III (GFR 30-59 ml/min) (585.3), Atherosclerotic heart disease of [place] coronary artery without angina pectoris (414.01 | [...] fat diet, aspirin, MARCUS inhibitors and statins. [facility] On 08-Nov-2012 10:08 to 11:01 Office Visit - Fluzone High Dose MEDICARE VACCINE AGAINST INFLUENZA (V04.81), Type II diabetes mellitus (250.00), Hypertension, benign (401.1), Peripheral vascular disease (Renamed from Peripheral blood vessel disorder) (443.9 | I73.9) , Kidney disease, chronic, stage III (GFR 30-59 ml/min) (585.3), Atherosclerotic heart disease of [place] coronary artery without angina pectoris (414.01 | [...] fat diet, aspirin, MARCUS inhibitors and statins. [facility] 10-May-2012 to 12-May-2012 Office Visit - Type [...] fat diet, aspirin, MARCUS inhibitors and statins. [facility] 15-Oct-2011 to 18-Oct-2011 Historical Summary [facility] On 14-Oct-2011 15:43 to 16:07 Office Visit [...] of oral contraceptives, visual disturbances or weakness. [facility] On 11-Jun-2011 11:27 to 12:04 Historical Summary [facility] On 11-Jun-2011 08:17 to 08:20 Office Visit [...] of oral contraceptives, visual disturbances or weakness. [facility] to Lab entry only - Diabetes mellitus (250.00) [facility] On 24-Oct-2010 10:43 to 10:45 Office Visit [...] good tolerance of treatment and good symptom control.[facility] 28-Aug-2010 to 29-Aug-2010 Office Visit - Need [...] myocardial infarction and sudden (Dad suddenly of [place] at the age of 72.). Pertinent social [...] last visit. Onset was 15 year(s) ago. [facility] 24-Apr-2010 to 30-Apr-2010 Lab entry only - Diabetes mellitus type 1 (250.01), Hypertension, benign ( 401.1), Hypercholesterolemia (272.0) [facility] On 22-Apr-2010 12:43 to 14:00 Lab entry only - Diabetes mellitus type 1 (250.01) [facility] On 22-Apr-2010 12:09 to 12:13 Historical Summary - Pre-operative examination (V72.84), Coronary atherosclerosis (414.00) [facility] On 22-Apr-2010 11:35 to 12:09 Insurance * Chi Lowry ; a guarantor * Medicare WPS * BS Plan 65
--- OUTSIDE RECORDS SUMMARY | 2017-04-29 00:27 | XMS REPORT | Continuity of Care Document ---
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 Valencia FlexTouch 100 UNIT/ML Subcutaneous Solution Pen-injector 15 units in AM for 30 days Quantity: 5 {Pre-filled_Pen_Syringe} Ordered:18-Mar-2016 Aakash Hernández MD* Start 18-Mar-2016 Active LISINOPRIL, 5MG (Oral Tablet) 1 (one) Tablet daily for 30 days * Quantity: 30 {QS} Refills: 12 Ordered:30-Sep-2015 Aakash Hernández MD* Start 30-Sep-2015 Active METFORMIN HCL, 500MG (Oral Tablet) one two times daily (500 MG) Active Mucinex 600 MG Oral Tablet Extended Release 12 Hour two times daily (600 MG) Active Namenda 10 MG Oral Tablet at bedtime (10 MG) Active Potassium Chloride ER 20 MEQ Oral Tablet Extended Release daily (20 MEQ) Active SEROquel 25 MG Oral Tablet at bedtime (25 MG) Active Simvastatin 20 MG Oral Tablet at bedtime (20 MG) Active VITAMIN D3, 2000UNIT (Oral Capsule) one daily (2000 UNIT) Active Xopenex 1.25 MG/3ML Inhalation Nebulization Solution two times daily (1.25 MG/3ML) Active BABY ASPIRIN, 81MG (Oral Tablet Chewable) daily (81 MG) Inactive CENTRUM SILVER (Oral Tablet) daily Inactive CITALOPRAM HYDROBROMIDE, 40MG (Oral Tablet) one-half tablet daily (40 MG) Inactive CYMBALTA, 30MG (Oral Capsule Delayed Release Particles) one daily (30 MG) Inactive DONEPEZIL HCL, 10MG (Oral Tablet) one-half at bedtime (10 MG) Inactive DONEPEZIL HCL, 10MG (Oral Tablet) [...] End Inactive Comments: faxed to [facility] GLIPIZIDE, 10MG (Oral Tablet) daily (10 MG) Inactive GLYBURIDE, 5MG (Oral Tablet) daily (5 MG) [...] Tablet) two times daily (10 MG) Inactive NAMENDA, 10MG (Oral Tablet) one at bedtime (10 MG) Inactive Novalog Insulin 70/30 20 [...] online Completed:26-Mar-2015 INFLUENZA QUADRIVALENT VAC: FLU VACC ([id number]) Completed:27-Mar-2015 ADMINISTRATION OF INFLUENZA VIRUS VACCINE (G0008) [...] (G0009) Ordered:15-May-2014 PREVNAR 13 VALENT PNEUMOCOCCAL VACCINE ([id number]) Completed:07-Jun-2014 ADMINISTRATION OF INFLUENZA VACCINE (G0008) Ordered:15-May-2014 HIGH DOSE QUADRIVALENT INFLUENZA VACCINE ([id number]) Completed:07-Jun-2014 Follow up in 4 months Ordered: Follow up in 4 months Ordered:03-Aug-2013 ADMIN INFLUENZA VIRUS VAC: FLU VACC PRSV FREE INC ANTIG ([id number]) Completed: Comments: CAC order ADMINISTRATION OF INFLUENZA VIRUS VACCINE (G0008) Ordered:03-May-2013 Comments: CAC order Follow up in 4 months Ordered:16-Mar-2013 CAROTID BILATERAL US ([id number]) Ordered:09-Nov-2012 Follow up in 4 months Ordered:08-Nov-2012 ADMIN INFLUENZA VIRUS VAC: FLU VACC PRSV FREE INC ANTIG ([id number]) Ordered: ADMINISTRATION OF INFLUENZA VIRUS VACCINE (G0008) Ordered:10-May-2012 CAROTID BILATERAL US ([id number]) Ordered:15-Oct-2011 ADMINISTRATION OF INFLUENZA VIRUS VACCINE (G0008) Ordered:11-Jun-2011 FLU VACC PRSV FREE INC ANTIG ([id number]) Completed:15-Jun-2011 Chronic Kidney Failure *: chronic renal insufficiency Ordered:11-Jun-2011 Follow up in 4 months Ordered: Follow up in 4 months Ordered:28-Aug-2010 EXTREMITY STUDY ([id number]) Ordered:28-Aug-[address] SCAN OF LUMBAR SPINE (32331) Ordered:28-Aug-2010 ADMINISTRATION OF INFLUENZA VIRUS VACCINE (G0008) Completed:30-May-2010 FLU VACCINE, 3 YRS & >, IM ([id number]) Completed:24-Apr-2010 Catheterization, Left Heart-Skin Completed:02-Dec-2004 EKG Completed:13-Nov-2014 EKG Completed:22-Apr-2010 EKG Completed:09-Dec-2015 Flu Vaccine Completed:10-May-2012 Flu Vaccine Completed:26-Mar-2015 Pneumovax Completed:01-May-2008 Prevnar 13 Completed:15-May-2014 PSA Completed:03-Aug-2013 Comments: (3.93) PSA Completed: Comments: (3.58) Immunization Name Dates Details Fluzone Lot #: [id number] Administered on:11-Jun-2011 Comments: Site: Deltoid (Left) Influenza (3 years and up) Lot #: [id number] Administered on:24-Apr-2010 Comments: Site: Deltoid (Left) Influenza, preserv. free, enhanced immunogncty, IM Lot #: [id number] Administered on:26-Mar-2015 Comments: Site: Deltoid (Left) Influenza, preserv. free, enhanced immunogncty, IM Lot #: [id number] Administered on:03-May-2013 Comments: Site: Deltoid (Left) Influenza, preserv. free, enhanced immunogncty, IM Lot #: [id number] Administered on:15-May-2014 Comments: Site: Deltoid (Right) Pneumococcal (2 years and up) Administered on:01-May-2008 Pneumococcal conjugate vaccine, 13 valent, IM Lot #: [id number] Administered on:15-May-2014 Comments: Site: Deltoid (Left) Family History Name Dates Details Brother 1 Comments: healthy Status: Active Brother 2 Comments: borderline diabetes Status: Active Father Comments: 72 yo of ID Status: Active Mother Comments: at 67 of [...] Description Value Details 22-Apr-2010 11:37 ELECTROCARDIOGRAM, COMPLETE (03690) [EKG] [place] Interval: 1 mm Pending 03-Sep-2015 11:24 A1C 9.1 % (Abnormal) Range: 4.6-6.2 Comments: Consistent with diabetes. 11:24 CBC-MALE- ORDER THIS ONE! (50726) manual diff Not Indicated (Normal) mpv 10.60 [...] (Normal) Range: 4.50-10.50 11:24 Vitamin D, 25-Hydroxy (74289) Comments: [facility] performed at: [facility], [address] [place], [address], Building Maintenance Engineer: Kike Sidhu D.O., MPHQuest VITAMIN D,25-OH,TOTAL,IA 24 ng/mL (Abnormal) Range: 30-100 Comments: Vitamin D Status 25-OH Vitamin D: Deficiency: <20 ng/mLInsufficiency: 20 - 29 ng/mLOptimal: > or=30 ng/mL For 25-OH Vitamin D testing on patients on D2-supplementation and patients for whom quantitation of D2 and D3 fractions is required, the QuestAssureD(TM)25-OH VIT D, (D2,D3), LC/MS/MS is recommended: order code 58983 (patients >2yrs). For more information on this test, go to:http:// education.SocialCom/faq/UOU137(This link is being provided for informational/educational purposes only.) 11:24 PTH Intact (34008) Comments: Items in this order include: Draw Charge[i], Basic Metabolic Panel, PTH, Vitamin D, 25-Hydroxy, CBC, Hemoglobin [id number] performed at: [facility], [address] [place] , [address], Building Maintenance Engineer: Kike Sidhu D.O., MPHQuest PARATHYROID HORMONE, INTACT [...] (Normal) 28-Feb-2014 09:48 TSH (THYROID STIMULATING HORMONE) (49932) Comments: Items in this order include: Draw [...] ng/mL (Normal) Range: 0.00-4.00 11:15 Urine Microalbumin (89601) Comments: Items in this order include: Draw [...] landon. Draw Drawn (Normal) 16-Mar-2013 11:42 CK ([id number]) Comments: Items in this order include: Basic Metabolic Panel, Hemoglobin A1C, Draw Charge[i], ALT, CKILast Hgb A1C was ran 128 Days ago. Check by landon CKI 220 U/L (Normal) Range: 39-308 11:42 ALT (17502) Comments: Items in this order include: Basic [...] Draw Drawn (Normal) 11-Nov-2012 08:39 LIPID PANEL (34342) Comments: Items in this order include: Draw [...] include: Draw Charge[i], Basic Metabolic Panel, Hemoglobin [id number] Hgb A1C was ran 182 Days ago. Check by kb Range: 4.6-6.2 Comments: Consistent with diabetes. 11:08 BMP Comments: Items in this order include: Draw Charge[i], Basic Metabolic Panel, Hemoglobin T8BEfin Hgb A1C was ran 182 Days ago. [...] include: Draw Charge[i], Basic Metabolic Panel, Hemoglobin B4LCmfh Hgb A1C was ran 182 Days ago. Check by kb Draw Drawn (Normal) 10-May-2012 11:35 TSH (THYROID STIMULATING HORMONE) ([id number]) Comments: Items in this order include: Draw Charge[i], Basic Metabolic Panel, Hemoglobin A1C, Urine Microalbumin, TSHLast Hgb A1C was ran 208 Days ago. Check by KB TSH 4.90 uIU/ml (Normal) Range: 0.34-5.60 11:35 Urine Microalbumin (59355) Comments: Items in this order include: Draw [...] (Normal) 11-Jun-2011 12:08 CBC-MALE- ORDER THIS ONE! (57517) Comments: Items in this order include: Hemoglobin [...] Comments: Consistent with diabetes. 16:22 Urine Microalbumin (79088) Comments: Items in this order include: Basic [...] (Normal) Range: 135-145 24-Oct-2010 10:57 CREATININE BLOOD (95071) Comments: Verbal order from Dr. Aakash Hernández; Verbal order from Dr. Aakash Hernández eGFR 52.0 mL/min/1.73m2 (Abnormal) Range: >60.0 CREAT 1.4 mg/dL (Abnormal) Range: 0.6-1.3 28-Aug-2010 12:07 TSH (THYROID STIMULATING HORMONE) (41928) TSH 5.29 uIU/ml (Normal) Range: 0.34-5.60 12:07 CBC-MALE- ORDER THIS ONE! (42615) manual diff Not Indicated (Normal) MCHC 35.4 [...] 8.82 10*3/uL (Normal) Range: 4.50-10.50 12:07 CK (44090) CK 199 U/L (Abnormal) Range: 26-190 12:07 ALT (28172) ALT 35 [iU]/L (Normal) Range: 30-65 12:07 [...] Range: 135-145 22-Apr-2010 12:46 BASIC METABOLIC PANEL- [facility] (40356) Comments: See paper results 12:45 CBC PLATELETS & AUTO /DIFF MALE (10896) Comments: See paper results 12:12 HEMOGLOBIN GLYCLATED (HGB A1C) (50732) Comments: See paper results Treatment Plan * VENIPUNCTURE; Ordered: 02/23/2014 * LIPID PANEL (01840); Ordered: 06/15/2011 Advance Directives Encounters Medication Entry [facility] On 18-Mar-2016 09:54 to 10:08 Historical Summary [facility] On 15:18 to 15:30 Office Visit - Kidney disease, chronic, stage III (moderate, EGFR 30-59 ml/min ) (585.3 | N18.3), Controlled diabetes mellitus (250.00 | E11.9), Benign essential hypertension (401.1 | I10), 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 [facility] On 20-Nov-2015 10:41 to 11:12 Medication Entry [facility] On 27-Sep-2015 12:29 to 12:35 Office Visit - Controlled diabetes mellitus (250.00 | E11.9), Kidney disease, chronic, stage III (moderate, EGFR 30-59 ml/min) (585.3 | N18.3), Benign essential hypertension (401.1 | I10), Atherosclerosis of [place] coronary artery of [place] heart without angina pectoris (414.01 | I25.10), [...] recent microalbumin result was mcg/mg Creatinine (64). [facility] On 03-Sep-2015 09:02 to 11:20 Office Visit [...] recent microalbumin result was mcg/mg Creatinine (64). [facility] On 23-Jul-2015 14:42 to 16:12 Office Visit [...] was done on 12/11/2014 (done at the [facility]) and the result was 8.4 %. [...] tolerance of treatment and fair symptom control. [facility] On 07-May-2015 11:15 to 12:01 Office Visit - Fluzone High Dose MEDICARE VACCINE AGAINST INFLUENZA (V04.81), Controlled diabetes mellitus (250.00 | E11.9), Kidney disease, chronic, stage III (moderate, EGFR 30-59 ml/min) (585.3 | N18.3), Benign essential hypertension (401.1 | I10), Atherosclerosis of [place] coronary artery of [place] heart without angina pectoris (414.01 | I25.10) [...] was done on 12/11/2014 (done at the [facility]) and the result was 8.4 %. [...] tolerance of treatment and fair symptom control. [facility] On 26-Mar-2015 08:43 to 11:48 Office Visit - Controlled diabetes mellitus (250.00 | E11.9), Atherosclerosis of [place] coronary artery of [place] heart without angina pectoris (414.01 | I25.10), [...] tolerance of treatment and fair symptom control. [facility] On 13:35 to 16:41 Office Visit - [...] tolerance of treatment and fair symptom control. [facility] On 13:23 to 16:54 Office Visit - Controlled diabetes mellitus (250.00 | E11.9), Kidney disease, chronic, stage III (moderate, EGFR 30-59 ml/min) (585.3 | N18.3), Atherosclerotic heart disease of [place] coronary artery without angina pectoris (414.01 | I25.10), Acquired hypothyroidism (244.9 | E03.9), Benign essential hypertension (401.1 | I10), Senile dementia, without behavioral disturbance ( 290.0 | F03.90) Encounter Reason: Transition into care - The patient is transitioning into care from a hospital (dismissed from [facility] on 11/17/2014.) and a summary of care was reviewed ., [ADDITIONAL REASON] Diabetes Type II, Follow Up - The last clinic visit was 9 day(s) ago (dismissed from [facility] on 11/17/2014.). Symptoms do not include [...] lipid testing was done on 2013 (at [facility]) and the results included total cholesterol 167 [...] tolerance of treatment and fair symptom control. [facility] On 26-Nov-2014 13:52 to 16:06 Historical Summary [facility] On 23-Nov-2014 10:32 to 10:37 Medication Entry - Controlled diabetes mellitus (250.00 | E11.9) [facility] On 22-Nov-2014 14:11 to 14:17 Medication Entry [facility] On 07-Jun-2014 15:01 to 15:07 Office Visit - COMBO MEDICARE HIGH DOSE INFLUENZA AND PREVNAR PNEUMOVAX ( Renamed from Need for prophylactic vaccination against Streptococcus pneumoniae (pneumococcus) and influenza) (V06.6 | Z23), Atherosclerotic heart disease of [place] coronary artery without angina pectoris (414.01 | [...] lipid testing was done on 12/08/2013 (at [facility]) and the results included total cholesterol 167 [...] fat diet, aspirin, MARCUS inhibitors and statins. [facility] On 15-May-2014 14:23 to 16:08 Medication Entry [facility] On 12:04 to 12:12 Office Visit - Controlled diabetes mellitus (250.00 | E11.9), Benign essential hypertension (401.1 | I10), Atherosclerotic heart disease of [place] coronary artery without angina pectoris (414.01 | [...] Hgb A1c was done on 2013 (at [facility]) and the result was 8.3 %. Most recent microalbumin was done on 12/08 and the result was mcg/mg Creatinine (64). Most recent lipid testing was done on 12/08/2013 (at [facility]) and the results included total cholesterol 167 [...] fat diet, aspirin, MARCUS inhibitors and statins. [facility] On 11:49 to 16:18 Historical Summary [facility] On 10:50 to 10:53 Office Visit - Atherosclerotic heart disease of [place] coronary artery without angina pectoris (414.01 | [...] fat diet, aspirin, MARCUS inhibitors and statins. [facility] On 03-Aug-2013 08:48 to 11:10 Historical Summary [facility] On 02-Aug-2013 10:28 to 10:30 Nurse Visit - Need for prophylactic vaccination and inoculation against influenza (V04.81) [facility] On 03-May-2013 12:59 to 13:01 Office Visit - Controlled diabetes mellitus (250.00 | E11.9), Kidney disease, chronic, stage III (moderate, EGFR 30-59 ml/min) (585.3 | N18.3), Atherosclerotic heart disease of [place] coronary artery without angina pectoris (414.01 | [...] fat diet, aspirin, MARCUS inhibitors and statins. [facility] On 16-Mar-2013 10:17 to 11:40 Office Visit - Benign essential hypertension (401.1 | I10), Kidney disease, chronic, stage III (GFR 30-59 ml/min) (585.3), Atherosclerotic heart disease of [place] coronary artery without angina pectoris (414.01 | [...] fat diet, aspirin, MARCUS inhibitors and statins. [facility] On 08-Nov-2012 10:08 to 11:01 Office Visit - Fluzone High Dose MEDICARE VACCINE AGAINST INFLUENZA (V04.81), Type II diabetes mellitus (250.00), Hypertension, benign (401.1), Peripheral vascular disease (Renamed from Peripheral blood vessel disorder) (443.9 | I73.9) , Kidney disease, chronic, stage III (GFR 30-59 ml/min) (585.3), Atherosclerotic heart disease of [place] coronary artery without angina pectoris (414.01 | [...] fat diet, aspirin, MARCUS inhibitors and statins. [facility] 10-May-2012 to 12-May-2012 Office Visit - Type [...] fat diet, aspirin, MARCUS inhibitors and statins. [facility] 15-Oct-2011 to 18-Oct-2011 Historical Summary [facility] On 14-Oct-2011 15:43 to 16:07 Office Visit [...] of oral contraceptives, visual disturbances or weakness. [facility] On 11-Jun-2011 11:27 to 12:04 Historical Summary [facility] On 11-Jun-2011 08:17 to 08:20 Office Visit [...] of oral contraceptives, visual disturbances or weakness. [facility] to Lab entry only - Diabetes mellitus (250.00) [facility] On 24-Oct-2010 10:43 to 10:45 Office Visit [...] good tolerance of treatment and good symptom control.[facility] 28-Aug-2010 to 29-Aug-2010 Office Visit - Need [...] myocardial infarction and sudden (Dad suddenly of ID at the age of 72.). Pertinent social [...] last visit. Onset was 15 year(s) ago. 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
--- OUTSIDE RECORDS SUMMARY | 2017-04-29 00:28 | XMS REPORT | Continuity of Care Document ---
Author Author [facility] Organization [facility] Address [address] [place] [address] Phone Care Team Providers Care [employer] Installation Supervisor Name Role Phone Aakash Hernández MD PP Aakash Hernández MD Unavailable Unavailable Problems Name Dates Details Acquired hypothyroidism (244.9, E03.9) Status: Active Anemia (Renamed from Absolute anemia) (285.9, D64.9) Status: Active Atherosclerosis of [place] coronary artery of [place] heart without angina pectoris (414.01, I25.10) Status: [...] for 30 days Quantity: 5 {Pre-filled_Pen_Syringe} Ordered:10-Oct-2015 Aakash Hernández MD* Start 10-Oct-2015 Active LINEZOLID, 600MG (Oral Tablet) one two times daily (600 MG) Active LISINOPRIL, 5MG (Oral Tablet) 1 (one) [...] Start 22-Nov-2014 End Inactive Comments: faxed to [facility] GLYBURIDE, 5MG (Oral Tablet) daily (5 MG) Inactive HYDROCHLOROTHIAZIDE, 25MG (Oral Tablet) daily (25 MG) Inactive LANTUS SOLOSTAR, 100UNIT/ML (Subcutaneous Solution Pen-injector) 5 units units at bedtime for 90 days * Quantity: 450 {Milliliter} Refills: 4 Ordered: Imelda Mena R.N.* Start 22-Nov-2014 End Inactive Comments: rx faxed to [facility] LEVOTHYROXINE SODIUM, 75MCG (Oral Tablet) 1 (one) Tablet Tablet daily for 30 days * Quantity: 30 {Tablet} Refills: 12 Ordered:26-Nov-2014 Imelda Mena R.N.* Start End 26-Nov-2014 Inactive LISINOPRIL, 20MG (Oral Tablet) one-half tablet of 40mg daily (20 MG) Inactive LISINOPRIL, 5MG (Oral Tablet) daily (5 MG) Inactive Comments: faxed to [facility] NAMENDA XR TITRATION PACK, 7 & [...] Dates Details Follow up in 2 months Ordered:03-Sep-2015 Follow up in 6 weeks Ordered:23-Jul-2015 Follow up in 2 months Ordered:07-May-2015 How to access health information online Completed:07-May-2015 Follow up in 6 weeks Ordered:26-Mar-2015 How to access health information online Completed:26-Mar-2015 INFLUENZA QUADRIVALENT VAC: FLU VACC ([id number]) Completed:27-Mar-2015 ADMINISTRATION OF INFLUENZA VIRUS VACCINE (G0008) [...] (G0009) Ordered:15-May-2014 PREVNAR 13 VALENT PNEUMOCOCCAL VACCINE ([id number]) Completed:07-Jun-2014 ADMINISTRATION OF INFLUENZA VACCINE (G0008) Ordered:15-May-2014 HIGH DOSE QUADRIVALENT INFLUENZA VACCINE (93067) Completed:07-Jun-2014 Follow up in 4 months Ordered: Follow up in 4 months Ordered:03-Aug-2013 ADMIN INFLUENZA VIRUS VAC: FLU VACC PRSV FREE INC ANTIG ([id number]) Completed: Comments: CAC order ADMINISTRATION OF INFLUENZA VIRUS VACCINE (G0008) Ordered:03-May-2013 Comments: CAC order Follow up in 4 months Ordered:16-Mar-2013 CAROTID BILATERAL US ([id number]) Ordered:09-Nov-2012 Follow up in 4 months Ordered:08-Nov-2012 ADMIN INFLUENZA VIRUS VAC: FLU VACC PRSV FREE INC ANTIG ([id number]) Ordered: ADMINISTRATION OF INFLUENZA VIRUS VACCINE (G0008) Ordered:10-May-2012 CAROTID BILATERAL US ([id number]) Ordered:15-Oct-2011 ADMINISTRATION OF INFLUENZA VIRUS VACCINE (G0008) Ordered:11-Jun-2011 FLU VACC PRSV FREE INC ANTIG (12765) Completed:15-Jun-2011 Chronic Kidney Failure *: chronic renal insufficiency Ordered:11-Jun-2011 Follow up in 4 months Ordered: Follow up in 4 months Ordered:28-Aug-2010 EXTREMITY STUDY ([id number]) Ordered:28-Aug-[address] SCAN OF LUMBAR SPINE (08852) Ordered:28-Aug-2010 ADMINISTRATION OF INFLUENZA VIRUS VACCINE (G0008) Completed:30-May-2010 FLU VACCINE, 3 YRS & >, IM ([id number]) Completed:24-Apr-2010 Catheterization, Left Heart-Skin Completed:02-Dec-2004 EKG Completed:13-Nov-2014 EKG Completed:22-Apr-2010 Flu Vaccine Completed:10-May-2012 Flu Vaccine Completed:26-Mar-2015 Pneumovax Completed:01-May-2008 Prevnar 13 Completed:15-May-2014 PSA Completed:03-Aug-2013 Comments: (3.93) PSA Completed: Comments: (3.58) Immunization Name Dates Details Fluzone Lot #: [id number] Administered on:11-Jun-2011 Comments: Site: Deltoid (Left) Influenza (3 years and up) Lot #: [id number] Administered on:24-Apr-2010 Comments: Site: Deltoid (Left) Influenza, preserv. free, enhanced immunogncty, IM Lot #: [id number] Administered on:26-Mar-2015 Comments: Site: Deltoid (Left) Influenza, preserv. free, enhanced immunogncty, IM Lot #: [id number] Administered on:03-May-2013 Comments: Site: Deltoid (Left) Influenza, preserv. free, enhanced immunogncty, IM Lot #: [id number] Administered on:15-May-2014 Comments: Site: Deltoid (Right) Pneumococcal (2 years and up) Administered on:01-May-2008 Pneumococcal conjugate vaccine, 13 valent, IM Lot #: [id number] Administered on:15-May-2014 Comments: Site: Deltoid (Left) Family History Name Dates Details Brother 1 Comments: healthy Status: Active Brother 2 Comments: borderline diabetes Status: Active Father Comments: 72 yo [place] Status: Active Mother Comments: at 67 of [...] Active Vital Signs Date Test Result Details 03-Sep-2015 10:55 Temperature 97.3 f Comments: Method: [...] Description Value Details 22-Apr-2010 11:37 ELECTROCARDIOGRAM, COMPLETE (16796) [EKG] SD Interval: 1 mm Pending 03-Sep-2015 11:24 A1C 9.1 % (Abnormal) Range: 4.6-6.2 Comments: Consistent with diabetes. 11:24 CBC-MALE- ORDER THIS ONE! (52112) manual diff Not Indicated (Normal) mpv 10.60 [...] (Normal) Range: 4.50-10.50 11:24 Vitamin D, 25-Hydroxy (11288) Comments: Testing performed at: [facility], [address] [place] [address], [phone], [employer] Supervisor: Kike Sidhu D.O., MPHQuest VITAMIN D,25-OH,TOTAL,IA 24 ng/mL (Abnormal) Range: 30-100 Comments: Vitamin D Status 25-OH Vitamin D: Deficiency: <20 ng/mLInsufficiency: 20 - 29 ng/mLOptimal: > or=30 ng/mL For 25-OH Vitamin D testing on patients on D2-supplementation and patients for whom quantitation of D2 and D3 fractions is required, the QuestAssureD(TM)25-OH VIT D, (D2,D3), LC/MS/MS is recommended: order code 88283 (patients >2yrs). For more information on this test, go to:http:// education.Picreel/faq/EVT227(This link is being provided for informational/educational purposes only.) 11:24 PTH Intact (00339) Comments: Items in this order include: Draw Charge[i], Basic Metabolic Panel, PTH, Vitamin D, 25-Hydroxy, CBC, Hemoglobin A2EIbeyyvi performed at: [facility], [address] [place] , [phone], [employer] Supervisor: Kike Sidhu D.O., MPHQuest PARATHYROID HORMONE, INTACT [...] (Normal) 28-Feb-2014 09:48 TSH (THYROID STIMULATING HORMONE) (23052) Comments: Items in this order include: Draw [...] ng/mL (Normal) Range: 0.00-4.00 11:15 Urine Microalbumin (60701) Comments: Items in this order include: Draw [...] kb. Draw Drawn (Normal) 16-Mar-2013 11:42 CK (60585) Comments: Items in this order include: Basic Metabolic Panel, Hemoglobin A1C, Draw Charge[i], ALT, CKILast Hgb A1C was ran 128 Days ago. Check by kb CKI 220 U/L (Normal) Range: 39-308 11:42 ALT (10782) Comments: Items in this order include: Basic [...] Draw Drawn (Normal) 11-Nov-2012 08:39 LIPID PANEL (11507) Comments: Items in this order include: Draw [...] include: Draw Charge[i], Basic Metabolic Panel, Hemoglobin [id number] Hgb A1C was ran 182 Days ago. Check by kb Range: 4.6-6.2 Comments: Consistent with diabetes. 11:08 BMP Comments: Items in this order include: Draw Charge[i], Basic Metabolic Panel, Hemoglobin M1HClfu Hgb A1C was ran 182 Days ago. [...] include: Draw Charge[i], Basic Metabolic Panel, Hemoglobin [id number] Hgb A1C was ran 182 Days ago. Check by kb Draw Drawn (Normal) 10-May-2012 11:35 TSH (THYROID STIMULATING HORMONE) (18810) Comments: Items in this order include: Draw Charge[i], Basic Metabolic Panel, Hemoglobin A1C, Urine Microalbumin, TSHLast Hgb A1C was ran 208 Days ago. Check by KB TSH 4.90 uIU/ml (Normal) Range: 0.34-5.60 11:35 Urine Microalbumin (37805) Comments: Items in this order include: Draw [...] (Normal) 11-Jun-2011 12:08 CBC-MALE- ORDER THIS ONE! (15000) Comments: Items in this order include: Hemoglobin [...] Comments: Consistent with diabetes. 16:22 Urine Microalbumin (11697) Comments: Items in this order include: Basic [...] (Normal) Range: 135-145 24-Oct-2010 10:57 CREATININE BLOOD (62351) Comments: Verbal order from Dr. Aakash Hernández; Verbal order from Dr. Aakash Hernández eGFR 52.0 mL/min/1.73m2 (Abnormal) Range: >60.0 CREAT 1.4 mg/dL (Abnormal) Range: 0.6-1.3 28-Aug-2010 12:07 TSH (THYROID STIMULATING HORMONE) (49239) TSH 5.29 uIU/ml (Normal) Range: 0.34-5.60 12:07 CBC-MALE- ORDER THIS ONE! (42752) manual diff Not Indicated (Normal) MCHC 35.4 [...] 8.82 10*3/uL (Normal) Range: 4.50-10.50 12:07 CK (79539) CK 199 U/L (Abnormal) Range: 26-190 12:07 ALT (25647) ALT 35 [iU]/L (Normal) Range: 30-65 12:07 [...] Range: 135-145 22-Apr-2010 12:46 BASIC METABOLIC PANEL- [facility] (77041) Comments: See paper results 12:45 CBC PLATELETS & AUTO /DIFF MALE (60278) Comments: See paper results 12:12 HEMOGLOBIN GLYCLATED (HGB A1C) (61350) Comments: See paper results Treatment Plan * VENIPUNCTURE; Ordered: 02/23/2014 * LIPID PANEL (15425); Ordered: 06/15/2011 Advance Directives Encounters Medication Entry [facility] On 27-Sep-2015 12:29 to 12:35 Office Visit - Controlled diabetes mellitus (250.00 | E11.9), Kidney disease, chronic, stage III (moderate, EGFR 30-59 ml/min) (585.3 | N18.3), Benign essential hypertension (401.1 | I10), Atherosclerosis of [place] coronary artery of [place] heart without angina pectoris (414.01 | I25.10), [...] recent microalbumin result was mcg/mg Creatinine (64). [facility] On 03-Sep-2015 09:02 to 11:20 Office [...] recent microalbumin result was mcg/mg Creatinine (64). [facility] On 23-Jul-2015 14:42 to 16:12 Office [...] was done on 12/11/2014 (done at the [facility]) and the result was 8.4 [...] treatment and fair symptom control. 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 [...] treatment and fair symptom control. [facility] On 26-Mar-2015 08:43 to 11:48 Office Visit - Controlled diabetes mellitus (250.00 | E11.9), Atherosclerosis of [place] coronary artery of [place] heart without angina pectoris (414.01 | I25.10), [...] treatment and fair symptom control. [facility] On 13:35 to 16:41 Office Visit [...] treatment and fair symptom control. [facility] On 13:23 to 16:54 Office Visit - Controlled diabetes mellitus (250.00 | E11.9), Kidney disease, chronic, stage III (moderate, EGFR 30-59 ml/min) (585.3 | N18.3), Atherosclerotic heart disease of [place] coronary artery without angina pectoris (414.01 | I25.10), Acquired hypothyroidism (244.9 | E03.9), Benign essential hypertension (401.1 | I10), Senile dementia, without behavioral disturbance ( 290.0 | F03.90) Encounter Reason: Transition into care - The patient is transitioning into care from a hospital (dismissed from [facility] on 11/17/2014.) and a summary of care was reviewed ., [ADDITIONAL REASON] Diabetes Type II, Follow Up - The last clinic visit was 9 day(s) ago (dismissed from [facility] on 11/17/2014.). Symptoms do not include [...] lipid testing was done on 2013 (at [place]) and the results included total cholesterol 167 [...] treatment and fair symptom control. [facility] On 26-Nov-2014 13:52 to 16:06 Historical Summary [facility] On 23-Nov-2014 10:32 to 10:37 Medication Entry - Controlled diabetes mellitus (250.00 | E11.9) [facility] On 22-Nov-2014 14:11 to 14:17 Medication Entry [facility] On 07-Jun-2014 15:01 to 15:07 Office Visit - COMBO MEDICARE HIGH DOSE INFLUENZA AND PREVNAR PNEUMOVAX ( Renamed from Need for prophylactic vaccination against Streptococcus pneumoniae (pneumococcus) and influenza) (V06.6 | Z23), Atherosclerotic heart disease of [place] coronary artery without angina pectoris (414.01 | [...] lipid testing was done on 12/08/2013 (at [place]) and the results included total cholesterol 167 [...] aspirin, MARCUS inhibitors and statins. [facility] On 15-May-2014 14:23 to 16:08 Medication Entry [facility] On 12:04 to 12:12 Office Visit - Controlled diabetes mellitus (250.00 | E11.9), Benign essential hypertension (401.1 | I10), Atherosclerotic heart disease of [place] coronary artery without angina pectoris (414.01 | [...] Hgb A1c was done on 2013 (at [place]) and the result was 8.3 %. Most recent microalbumin was done on 12/08 and the result was mcg/mg Creatinine (64). Most recent lipid testing was done on 12/08/2013 (at [place]) and the results included total cholesterol 167 [...] aspirin, MARCUS inhibitors and statins. [facility] On 11:49 to 16:18 Historical Summary [facility] On 10:50 to 10:53 Office Visit - Atherosclerotic heart disease of [place] coronary artery without angina pectoris (414.01 | [...] aspirin, MARCUS inhibitors and statins. [facility] On 03-Aug-2013 08:48 to 11:10 Historical Summary [facility] On 02-Aug-2013 10:28 to 10:30 Nurse Visit - Need for prophylactic vaccination and inoculation against influenza (V04.81) [facility] On 03-May-2013 12:59 to 13:01 Office Visit - Controlled diabetes mellitus (250.00 | E11.9), Kidney disease, chronic, stage III (moderate, EGFR 30-59 ml/min) (585.3 | N18.3), Atherosclerotic heart disease of [place] coronary artery without angina pectoris (414.01 | [...] aspirin, MARCUS inhibitors and statins. [facility] On 16-Mar-2013 10:17 to 11:40 Office Visit - Benign essential hypertension (401.1 | I10), Kidney disease, chronic, stage III (GFR 30-59 ml/min) (585.3), Atherosclerotic heart disease of [place] coronary artery without angina pectoris (414.01 | [...] aspirin, MARCUS inhibitors and statins. [facility] On 08-Nov-2012 10:08 to 11:01 Office Visit - Fluzone High Dose MEDICARE VACCINE AGAINST INFLUENZA (V04.81), Type II diabetes mellitus (250.00), Hypertension, benign (401.1), Peripheral vascular disease (Renamed from Peripheral blood vessel disorder) (443.9 | I73.9) , Kidney disease, chronic, stage III (GFR 30-59 ml/min) (585.3), Atherosclerotic heart disease of [place] coronary artery without angina pectoris (414.01 | [...] aspirin, MARCUS inhibitors and statins. [facility] 10-May-2012 to 12-May-2012 Office Visit - [...] aspirin, MARCUS inhibitors and statins. [facility] 15-Oct-2011 to 18-Oct-2011 Historical Summary [facility] On 14-Oct-2011 15:43 to 16:07 Office [...] contraceptives, visual disturbances or weakness. [facility] On 11-Jun-2011 11:27 to 12:04 Historical Summary [facility] On 11-Jun-2011 08:17 to 08:20 Office [...] contraceptives, visual disturbances or weakness. [facility] to Lab entry only - Diabetes mellitus (250.00) [facility] On 24-Oct-2010 10:43 to 10:45 Office [...] of treatment and good symptom control.[facility] 28-Aug-2010 to 29-Aug-2010 Office Visit - [...] myocardial infarction and sudden (Dad suddenly of [place] at the age of 72.). Pertinent social [...] Onset was 15 year(s) ago. 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
[2017-04-29] MEDS ORDERED: RT-ALBUTEROL SULF 2.5 MG/3 ML PRE-MIX VIAL IH SCH (00:30)
--- OUTSIDE RECORDS SUMMARY | 2017-04-29 00:30 | XMS REPORT | Continuity of Care Document ---
Author Author [facility] Organization [facility] Address [address] [place] [address] Phone Care Team Providers Care Strategic Alliances Manager Name Role Phone Aakash Hernández MD PP Aakash Hernández MD Unavailable Imelda Mena R.N. 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, E11.9) Status: Active Encounter for long-term (current) use of high-risk medication (V58.69, Z79.899 ) Status: Active Hypercholesterolemia (Renamed from Hypercholesteremia) (272.0, E78.00) Status: Active Hypercholesterolemia (Renamed from Hypercholesteremia) (272.0, E78.00) Status: Active Kidney disease, chronic, stage III [...] 1MG (Oral Tablet) daily (1 MG) Active Levemir FlexTouch 100 UNIT/ML Subcutaneous Solution Pen-injector 15 [...] Oral Tablet at bedtime (10 MG) Active NovoLOG 100 UNIT/ML Subcutaneous Solution 10 units with meals and at bedtime for 30 days * Quantity: 10 {Milliliter} Refills: 12 Ordered:27-Oct-2016 Imelda Mena R.N.* Start 27-Oct-2016 Active Potassium Chloride ER 20 MEQ Oral [...] 5MG (Oral Tablet) daily (5 MG) Inactive HumaLOG 100 UNIT/ML Subcutaneous Solution sliding scale four times daily (100 UNIT/ML) Inactive Comments: OS=768-859 give 2 units; 200-249=4 units; 250-299=6 units;300-349=8 units; 350-399=12 units; 400-450=15 units and above 450, call HYDROCHLOROTHIAZIDE, 25MG (Oral Tablet) daily (25 MG) Inactive LANTUS SOLOSTAR, 100UNIT/ML (Subcutaneous Solution Pen-injector) 5 units units at bedtime for 90 days * Quantity: 450 {Milliliter} Refills: 4 Ordered: Imelda Mena R.N.* Start 22-Nov-2014 End Inactive Comments: rx faxed to [facility] LEVOTHYROXINE SODIUM, 75MCG (Oral Tablet) 1 (one) Tablet Tablet daily for 30 days * Quantity: 30 {Tablet} Refills: 12 Ordered:26-Nov-2014 Imelda Mena R.N.* Start End 26-Nov-2014 Inactive LINEZOLID, 600MG (Oral Tablet) one two times daily (600 MG) Inactive LISINOPRIL, 20MG (Oral Tablet) one-half tablet of 40mg daily (20 MG) Inactive LISINOPRIL, 5MG (Oral Tablet) daily (5 MG) Inactive Comments: faxed to [facility] NAMENDA XR TITRATION PACK, 7 & [...] Z23) Status: Inactive Procedures Procedure Dates Details INFLUENZA QUADRIVALENT VAC: FLU VACC ([id number]) Completed:26-May-2016 Comments : Verbal order from Dr. Aakash Hernández ADMINISTRATION OF INFLUENZA VIRUS VACCINE (G0008) Ordered:06-May-2016 Comments: Verbal order from Dr. Aakash Hernández Acute Bronchitis: bronchitis Ordered:20-Nov-2015 Follow up in 2 months Ordered:20-Nov-2015 Follow up in 2 months Ordered:03-Sep-2015 Follow up in 6 weeks Ordered:23-Jul-2015 Follow up in 2 months Ordered:07-May-2015 How to access health information online Completed:07-May-2015 Follow up in 6 weeks Ordered:26-Mar-2015 How to access health information online Completed:26-Mar-2015 INFLUENZA QUADRIVALENT VAC: FLU VACC ([id number]) Completed:27-Mar-2015 ADMINISTRATION OF INFLUENZA VIRUS VACCINE (G0008) [...] (G0009) Ordered:15-May-2014 PREVNAR 13 VALENT PNEUMOCOCCAL VACCINE ([id number]) Completed:07-Jun-2014 ADMINISTRATION OF INFLUENZA VACCINE (G0008) Ordered:15-May-2014 HIGH DOSE QUADRIVALENT INFLUENZA VACCINE ([id number]) Completed:07-Jun-2014 Follow up in 4 months Ordered: Follow up in 4 months Ordered:03-Aug-2013 ADMIN INFLUENZA VIRUS VAC: FLU VACC PRSV FREE INC ANTIG ([id number]) Completed: Comments: CAC order ADMINISTRATION OF INFLUENZA VIRUS VACCINE (G0008) Ordered:03-May-2013 Comments: CAC order Follow up in 4 months Ordered:16-Mar-2013 CAROTID BILATERAL US ([id number]) Ordered:09-Nov-2012 Follow up in 4 months Ordered:08-Nov-2012 ADMIN INFLUENZA VIRUS VAC: FLU VACC PRSV FREE INC ANTIG ([id number]) Ordered: ADMINISTRATION OF INFLUENZA VIRUS VACCINE (G0008) Ordered:10-May-2012 CAROTID BILATERAL US ([id number]) Ordered:15-Oct-2011 ADMINISTRATION OF INFLUENZA VIRUS VACCINE (G0008) Ordered:11-Jun-2011 FLU VACC PRSV FREE INC ANTIG ([id number]) Completed:15-Jun-2011 Chronic Kidney Failure *: chronic renal insufficiency Ordered:11-Jun-2011 Follow up in 4 months Ordered: Follow up in 4 months Ordered:28-Aug-2010 EXTREMITY STUDY ([id number]) Ordered:28-Aug-[address] SCAN OF LUMBAR SPINE ([id number]) Ordered:28-Aug-2010 ADMINISTRATION OF INFLUENZA VIRUS VACCINE (G0008) Completed:30-May-2010 FLU VACCINE, 3 YRS & >, IM ([id number]) Completed:24-Apr-2010 Catheterization, Left Heart-Skin Completed:02-Dec-2004 EKG Completed:13-Nov-2014 EKG Completed:22-Apr-2010 EKG Completed:09-Dec-2015 Flu Vaccine Completed:06-May-2016 Flu Vaccine Completed:10-May-2012 Pneumovax Completed:01-May-2008 Prevnar 13 Completed:15-May-2014 PSA Completed: Comments: (3.58) PSA Completed:03-Aug-2013 Comments: (3.93) Immunization Name Dates Details Fluzone Lot #: [id number] Administered on:11-Jun-2011 Comments: Site: Deltoid (Left) Influenza (3 years and up) Lot #: [id number] Administered on:24-Apr-2010 Comments: Site: Deltoid (Left) Influenza, preserv. free, enhanced immunogncty, IM Lot #: [id number] Administered on:26-Mar-2015 Comments: Site: Deltoid (Left) Influenza, preserv. free, enhanced immunogncty, IM Lot #: [id number] Administered on:06-May-2016 Comments: Site: Deltoid (Left) Influenza, preserv. free, enhanced immunogncty, IM Lot #: [id number] Administered on:03-May-2013 Comments: Site: Deltoid (Left) Influenza, preserv. free, enhanced immunogncty, IM Lot #: [id number] Administered on:15-May-2014 Comments: Site: Deltoid (Right) Pneumococcal (2 years and up) Administered on:01-May-2008 Pneumococcal conjugate vaccine, 13 valent, IM Lot #: [id number] Administered on:15-May-2014 Comments: Site: Deltoid (Left) Family [...] Description Value Details 22-Apr-2010 11:37 ELECTROCARDIOGRAM, COMPLETE ([id number]) [EKG] LA Interval: 1 mm Pending 03-Sep-2015 11:24 A1C 9.1 % (Abnormal) Range: 4.6-6.2 Comments: Consistent with diabetes. 11:24 CBC-MALE- ORDER THIS ONE! (43543) manual diff Not Indicated (Normal) mpv 10.60 [...] (Normal) Range: 4.50-10.50 11:24 Vitamin D, 25-Hydroxy (90586) Comments: Testing performed at: [facility], [address] [place] [address], [id number], Reservoir Engineer: Kike Sidhu D.O., MPHQuest VITAMIN D,25-OH,TOTAL,IA 24 ng/mL (Abnormal) Range: 30-100 Comments: Vitamin D Status 25-OH Vitamin D: Deficiency: <20 ng/mLInsufficiency: 20 - 29 ng/mLOptimal: > or=30 ng/mL For 25-OH Vitamin D testing on patients on D2-supplementation and patients for whom quantitation of D2 and D3 fractions is required, the QuestAssureD(TM)25-OH VIT D, (D2,D3), LC/MS/MS is recommended: order code 51741 (patients >2yrs). For more information on this test, go to:http:// education.[email or web address].COM/faq/[email or web address](This link is being provided for informational/educational purposes only.) 11:24 PTH Intact (83046) Comments: Items in this order include: Draw Charge[i], Basic Metabolic Panel, PTH, Vitamin D, 25-Hydroxy, CBC, Hemoglobin [id number] performed at: [facility], [address] [place] [address] , [id number], Reservoir Engineer: Kike Sidhu D.O., MPHQuest PARATHYROID HORMONE, [...] (Normal) 28-Feb-2014 09:48 TSH (THYROID STIMULATING HORMONE) (57690) Comments: Items in this order include: Draw [...] ng/mL (Normal) Range: 0.00-4.00 11:15 Urine Microalbumin (40056) Comments: Items in this order include: Draw [...] kb. Draw Drawn (Normal) 16-Mar-2013 11:42 CK ([id number]) Comments: Items in this order include: Basic Metabolic Panel, Hemoglobin A1C, Draw Charge[i], ALT, CKILast Hgb A1C was ran 128 Days ago. Check by kb CKI 220 U/L (Normal) Range: 39-308 11:42 ALT (50043) Comments: Items in this order include: Basic [...] Draw Drawn (Normal) 11-Nov-2012 08:39 LIPID PANEL (33495) Comments: Items in this order include: Draw [...] include: Draw Charge[i], Basic Metabolic Panel, Hemoglobin H8ENayc Hgb A1C was ran 182 Days ago. Check by kb Range: 4.6-6.2 Comments: Consistent with diabetes. 11:08 BMP Comments: Items in this order include: Draw Charge[i], Basic Metabolic Panel, Hemoglobin R9UNobb Hgb A1C was ran 182 Days ago. [...] include: Draw Charge[i], Basic Metabolic Panel, Hemoglobin O1SJudr Hgb A1C was ran 182 Days ago. Check by kb Draw Drawn (Normal) 10-May-2012 11:35 TSH (THYROID STIMULATING HORMONE) ([id number]) Comments: Items in this order include: Draw Charge[i], Basic Metabolic Panel, Hemoglobin A1C, Urine Microalbumin, TSHLast Hgb A1C was ran 208 Days ago. Check by KB TSH 4.90 uIU/ml (Normal) Range: 0.34-5.60 11:35 Urine Microalbumin (50753) Comments: Items in this order include: Draw [...] (Normal) 11-Jun-2011 12:08 CBC-MALE- ORDER THIS ONE! ([id number]) Comments: Items in this order include: Hemoglobin [...] Comments: Consistent with diabetes. 16:22 Urine Microalbumin (56733) Comments: Items in this order include: Basic [...] (Normal) Range: 135-145 24-Oct-2010 10:57 CREATININE BLOOD (77823) Comments: Verbal order from Dr. Aakash Hernández; Verbal order from Dr. Aakash Hernández eGFR 52.0 mL/min/1.73m2 (Abnormal) Range: >60.0 CREAT 1.4 mg/dL (Abnormal) Range: 0.6-1.3 28-Aug-2010 12:07 TSH (THYROID STIMULATING HORMONE) (97822) TSH 5.29 uIU/ml (Normal) Range: 0.34-5.60 12:07 CBC-MALE- ORDER THIS ONE! (32441) manual diff Not Indicated (Normal) MCHC 35.4 [...] 8.82 10*3/uL (Normal) Range: 4.50-10.50 12:07 CK (89461) CK 199 U/L (Abnormal) Range: 26-190 12:07 ALT (62806) ALT 35 [iU]/L (Normal) Range: 30-65 12:07 [...] Range: 135-145 22-Apr-2010 12:46 [place]IC [place]ABOL[place] [facility] [place] Comments: See paper results 12:45 CBC PLATELETS & AUTO /DIFF MALE (85692) Comments: See paper results 12:12 HEMOGLOBIN GLYCLATED (HGB A1C) (98914) Comments: See paper results Treatment Plan * VENIPUNCTURE; Ordered: 02/23/2014 * LIPID PANEL (57442); Ordered: 06/15/2011 Advance Directives Encounters Medication Entry - Controlled insulin dependent diabetes mellitus (250.00 | E11.9) [facility] On 27-Oct-2016 14:50 to 14:56 Nurse Visit (Non-billable) - Need for prophylactic vaccination and inoculation against influenza (V04.81 | Z23) [facility] On 26-May-2016 14:59 to 15:03 Medication Entry [facility] On 18-Mar-2016 09:54 to 10:08 Historical Summary [facility] On 15:18 to 15:30 Office Visit [...] [facility] (is a resident at [facility]) and a summary of [...] recent microalbumin result was mcg/mg Creatinine (64). [facility] On 20-Nov-2015 10:41 to 11:12 Medication Entry [facility] On 27-Sep-2015 12:29 to 12:35 Office Visit - Controlled diabetes mellitus (250.00 | E11.9), Kidney disease, chronic, stage III (moderate, EGFR 30-59 ml/min) (585.3 | N18.3), Benign essential hypertension (401.1 | I10), Atherosclerosis of [place] coronary artery of [place] heart without angina pectoris (414.01 | I25.10), [...] recent microalbumin result was mcg/mg Creatinine (64). [facility] On 03-Sep-2015 09:02 to 11:20 Office [...] recent microalbumin result was mcg/mg Creatinine (64). [facility] On 23-Jul-2015 14:42 to 16:12 Office [...] was done on 12/11/2014 (done at the [facility]) and the result was 8.4 %. [...] tolerance of treatment and fair symptom control. [facility] On 07-May-2015 11:15 to 12:01 Office Visit - Fluzone High Dose MEDICARE VACCINE AGAINST INFLUENZA (V04.81), Controlled diabetes mellitus (250.00 | E11.9), Kidney disease, chronic, stage III (moderate, EGFR 30-59 ml/min) (585.3 | N18.3), Benign essential hypertension (401.1 | I10), Atherosclerosis of [place] coronary artery of [place] heart without angina pectoris (414.01 | I25.10) [...] was done on 12/11/2014 (done at the [facility]) and the result was 8.4 %. [...] tolerance of treatment and fair symptom control. [facility] On 26-Mar-2015 08:43 to 11:48 Office Visit - Controlled diabetes mellitus (250.00 | E11.9), Atherosclerosis of [place] coronary artery of [place] heart without angina pectoris (414.01 | I25.10), [...] tolerance of treatment and fair symptom control. [facility] On 13:35 to 16:41 Office Visit [...] tolerance of treatment and fair symptom control. [facility] On 13:23 to 16:54 Office Visit - Controlled diabetes mellitus (250.00 | E11.9), Kidney disease, chronic, stage III (moderate, EGFR 30-59 ml/min) (585.3 | N18.3), Atherosclerotic heart disease of [place] coronary artery without angina pectoris (414.01 | I25.10), Acquired hypothyroidism (244.9 | E03.9), Benign essential hypertension (401.1 | I10), Senile dementia, without behavioral disturbance ( 290.0 | F03.90) Encounter Reason: Transition into care - The patient is transitioning into care from a hospital (dismissed from [facility] on 11/17/2014.) and a summary of care was reviewed ., [ADDITIONAL REASON] Diabetes Type II, Follow Up - The last clinic visit was 9 day(s) ago (dismissed from [facility] on 11/17/2014.). Symptoms do not include [...] tolerance of treatment and fair symptom control. [facility] On 26-Nov-2014 13:52 to 16:06 Historical Summary [facility] On 23-Nov-2014 10:32 to 10:37 Medication Entry - Controlled diabetes mellitus (250.00 | E11.9) [facility] On 22-Nov-2014 14:11 to 14:17 Medication Entry [facility] On 07-Jun-2014 15:01 to 15:07 Office Visit - COMBO MEDICARE HIGH DOSE INFLUENZA AND PREVNAR PNEUMOVAX ( Renamed from Need for prophylactic vaccination against Streptococcus pneumoniae (pneumococcus) and influenza) (V06.6 | Z23), Atherosclerotic heart disease of [place] coronary artery without angina pectoris (414.01 | [...] treatment includes dietary modification, thiazide diuretic and MRACUS inhibitor. By report there is good compliance [...] fat diet, aspirin, MARCUS inhibitors and statins. [facility] On 15-May-2014 14:23 to 16:08 Medication Entry [facility] On 12:04 to 12:12 Office Visit - Controlled diabetes mellitus (250.00 | E11.9), Benign essential hypertension (401.1 | I10), Atherosclerotic heart disease of [place] coronary artery without angina pectoris (414.01 | [...] fat diet, aspirin, MARCUS inhibitors and statins. [facility] On 11:49 to 16:18 Historical Summary [facility] On 10:50 to 10:53 Office Visit - Atherosclerotic heart disease of [place] coronary artery without angina pectoris (414.01 | [...] fat diet, aspirin, MARCUS inhibitors and statins. [facility] On 03-Aug-2013 08:48 to 11:10 Historical Summary [facility] On 02-Aug-2013 10:28 to 10:30 Nurse Visit - Need for prophylactic vaccination and inoculation against influenza (V04.81) [facility] On 03-May-2013 12:59 to 13:01 Office Visit - Controlled diabetes mellitus (250.00 | E11.9), Kidney disease, chronic, stage III (moderate, EGFR 30-59 ml/min) (585.3 | N18.3), Atherosclerotic heart disease of [place] coronary artery without angina pectoris (414.01 | [...] fat diet, aspirin, MARCUS inhibitors and statins. [facility] On 16-Mar-2013 10:17 to 11:40 Office Visit - Benign essential hypertension (401.1 | I10), Kidney disease, chronic, stage III (GFR 30-59 ml/min) (585.3), Atherosclerotic heart disease of [place] coronary artery without angina pectoris (414.01 | I25.10), Type II diabetes mellitus (250.00), Hypercholesterolemia (Renamed from Hypercholesteremia) (272.0 | E78.00), Occlusion and stenosis of carotid artery ( [...] fat diet, aspirin, MARCUS inhibitors and statins. [facility] On 08-Nov-2012 10:08 to 11:01 Office Visit - Fluzone High Dose MEDICARE VACCINE AGAINST INFLUENZA (V04.81), Type II diabetes mellitus (250.00), Hypertension, benign (401.1), Peripheral vascular disease (Renamed from Peripheral blood vessel disorder) (443.9 | I73.9) , Kidney disease, chronic, stage III (GFR 30-59 ml/min) (585.3), Atherosclerotic heart disease of [place] coronary artery without angina pectoris (414.01 | [...] fat diet, aspirin, MARCUS inhibitors and statins. [facility] 10-May-2012 to 12-May-2012 Office Visit - [...] fat diet, aspirin, MARCUS inhibitors and statins. [facility] 15-Oct-2011 to 18-Oct-2011 Historical Summary [facility] On 14-Oct-2011 15:43 to 16:07 Office [...] of oral contraceptives, visual disturbances or weakness. [facility] On 11-Jun-2011 11:27 to 12:04 Historical Summary [facility] On 11-Jun-2011 08:17 to 08:20 Office [...] of oral contraceptives, visual disturbances or weakness. [facility] to Lab entry only - Diabetes mellitus (250.00) [facility] On 24-Oct-2010 10:43 to 10:45 Office [...] good tolerance of treatment and good symptom control.[facility] 28-Aug-2010 to 29-Aug-2010 Office Visit - [...] last visit. Onset was 15 year(s) ago. [facility] 24-Apr-2010 to 30-Apr-2010 Lab entry only - Diabetes mellitus type 1 (250.01), Hypertension, benign ( 401.1), Hypercholesterolemia (272.0) [facility] On 22-Apr-2010 12:43 to 14:00 Lab entry only - Diabetes mellitus type 1 (250.01) [facility] On 22-Apr-2010 12:09 to 12:13 Historical Summary - Pre-operative examination (V72.84), Coronary atherosclerosis (414.00) [facility] On 22-Apr-2010 11:35 to 12:09 Insurance * Chi Lowry ; a guarantor * Medicare WPS * BS Plan 65
--- OUTSIDE RECORDS SUMMARY | 2017-04-29 00:31 | XMS REPORT | Continuity of Care Document ---
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, I25.10) [...] MD* Start 22-Nov-2014 Active Comments: faxed to [place] DONAVAN HYDROCHLOROTHIAZIDE, 25MG (Oral Tablet) - Historical Medication daily (25 MG) Active LANTUS SOLOSTAR, 100UNIT/ML (Subcutaneous Solution Pen-injector) 5 units at bedtime for 90 days * Quantity: 450 {Milliliter} Refills: 4 Ordered:22-Nov-2014 Aakash Hernández MD* Start 22-Nov-2014 Active Comments: rx faxed to [facility] LEVOTHYROXINE SODIUM, 75MCG (Oral Tablet) 1 (one) Tablet Tablet daily for 30 days * Quantity: 30 {Tablet} Refills: 12 Ordered:15-May-2014 Aakash Hernández MD* Start Active LISINOPRIL, 5MG (Oral Tablet) 1 (one) Tablet daily for 90 days * Quantity: 90 {Tablet} Refills: 4 Ordered:22-Nov-2014 Aakash Hernández MD* Start 22-Nov-2014 Active Comments: faxed to [facility] METFORMIN HCL, 500MG (Oral Tablet) - Historical [...] daily (5 MG) Inactive Comments: faxed to [facility] Novalog Insulin 70/30 - Historical Medication 20 [...] (G0009) Ordered:15-May-2014 PREVNAR 13 VALENT PNEUMOCOCCAL VACCINE ([id number]) Completed:07-Jun-2014 ADMINISTRATION OF INFLUENZA VACCINE (G0008) Ordered:15-May-2014 HIGH DOSE QUADRIVALENT INFLUENZA VACCINE ([id number]) Completed:07-Jun-2014 Follow up in 4 months Ordered: Follow up in 4 months Ordered:03-Aug-2013 ADMIN INFLUENZA VIRUS VAC: FLU VACC PRSV FREE INC ANTIG ([id number]) Completed: Comments: CAC order ADMINISTRATION OF INFLUENZA VIRUS VACCINE (G0008) Ordered:03-May-2013 Comments: CAC order Follow up in 4 months Ordered:16-Mar-2013 CAROTID BILATERAL US ([id number]) Ordered:09-Nov-2012 Follow up in 4 months Ordered:08-Nov-2012 ADMIN INFLUENZA VIRUS VAC: FLU VACC PRSV FREE INC ANTIG ([id number]) Ordered: ADMINISTRATION OF INFLUENZA VIRUS VACCINE (G0008) Ordered:10-May-2012 CAROTID BILATERAL US ([id number]) Ordered:15-Oct-2011 ADMINISTRATION OF INFLUENZA VIRUS VACCINE (G0008) Ordered:11-Jun-2011 FLU VACC PRSV FREE INC ANTIG ([id number]) Completed:15-Jun-2011 Chronic Kidney Failure *: chronic renal insufficiency Ordered:11-Jun-2011 Follow up in 4 months Ordered: Follow up in 4 months Ordered:28-Aug-2010 EXTREMITY STUDY ([id number]) Ordered:28-Aug-[address] SCAN OF LUMBAR SPINE ([id number]) Ordered:28-Aug-2010 ADMINISTRATION OF INFLUENZA VIRUS VACCINE (G0008) Completed:30-May-2010 FLU VACCINE, 3 YRS & >, IM ([id number]) Completed:24-Apr-2010 Catheterization, Left Heart-Skin Completed:02-Dec-2004 EKG Completed:22-Apr-2010 Flu Vaccine Completed:10-May-2012 Flu Vaccine Completed:15-May-2014 Pneumovax Completed:01-May-2008 Prevnar 13 Completed:15-May-2014 PSA Completed: Comments: (3.58) PSA Completed:03-Aug-2013 Comments: (3.93) Immunization Name Dates Details Fluzone Lot #: [id number] Administered on:11-Jun-2011 Comments: Site: Deltoid (Left) Influenza (3 years and up) Lot #: [id number] Administered on:24-Apr-2010 Comments: Site: Deltoid (Left) Influenza, preserv. free, enhanced immunogncty, IM Lot #: [id number] Administered on:03-May-2013 Comments: Site: Deltoid (Left) Influenza, preserv. free, enhanced immunogncty, IM Lot #: [id number] Administered on:15-May-2014 Comments: Site: Deltoid (Right) Pneumococcal (2 years and up) Administered on:01-May-2008 Pneumococcal conjugate vaccine, 13 valent, IM Lot #: [id number] Administered on:15-May-2014 Comments: Site: Deltoid (Left) Family History Name Dates Details Brother 1 Comments: healthy Status: Active Brother 2 Comments: borderline diabetes Status: Active Father Comments: 72 yo of [place] Status: Active Mother Comments: at 67 of [...] Description Value Details 22-Apr-2010 11:37 ELECTROCARDIOGRAM, COMPLETE ([id number]) [EKG] DE Interval: 1 mm Pending 28-Feb-2014 09:48 TSH (THYROID STIMULATING HORMONE) (60367) Comments: Items in this order include: Draw [...] ng/mL (Normal) Range: 0.00-4.00 11:15 Urine Microalbumin (01523) Comments: Items in this order include: Draw [...] landon. Draw Drawn (Normal) 16-Mar-2013 11:42 CK ([id number]) Comments: Items in this order include: Basic Metabolic Panel, Hemoglobin A1C, Draw Charge[i], ALT, CKILast Hgb A1C was ran 128 Days ago. Check by landon CKI 220 U/L (Normal) Range: 39-308 11:42 ALT (59483) Comments: Items in this order include: Basic [...] Draw Drawn (Normal) 11-Nov-2012 08:39 LIPID PANEL (78802) Comments: Items in this order include: Draw [...] include: Draw Charge[i], Basic Metabolic Panel, Hemoglobin [id number] Hgb A1C was ran 182 Days ago. Check by kb Range: 4.6-6.2 Comments: Consistent with diabetes. 11:08 BMP Comments: Items in this order include: Draw Charge[i], Basic Metabolic Panel, Hemoglobin [id number] Hgb A1C was ran 182 Days ago. [...] include: Draw Charge[i], Basic Metabolic Panel, Hemoglobin [id number] Hgb A1C was ran 182 Days ago. Check by kb Draw Drawn (Normal) 10-May-2012 11:35 TSH (THYROID STIMULATING HORMONE) (03665) Comments: Items in this order include: Draw Charge[i], Basic Metabolic Panel, Hemoglobin A1C, Urine Microalbumin, TSHLast Hgb A1C was ran 208 Days ago. Check by KB TSH 4.90 uIU/ml (Normal) Range: 0.34-5.60 11:35 Urine Microalbumin (60224) Comments: Items in this order include: Draw [...] (Normal) 11-Jun-2011 12:08 CBC-MALE- ORDER THIS ONE! (55115) Comments: Items in this order include: Hemoglobin [...] Comments: Consistent with diabetes. 16:22 Urine Microalbumin (00174) Comments: Items in this order include: Basic [...] (Normal) Range: 135-145 24-Oct-2010 10:57 CREATININE BLOOD (12680) Comments: Verbal order from Dr. Aakash Hernández; Verbal order from Dr. Aakash Hernández eGFR 52.0 mL/min/1.73m2 (Abnormal) Range: >60.0 CREAT 1.4 mg/dL (Abnormal) Range: 0.6-1.3 28-Aug-2010 12:07 TSH (THYROID STIMULATING HORMONE) (99733) TSH 5.29 uIU/ml (Normal) Range: 0.34-5.60 12:07 CBC-MALE- ORDER THIS ONE! (81040) manual diff Not Indicated (Normal) MCHC 35.4 [...] 8.82 10*3/uL (Normal) Range: 4.50-10.50 12:07 CK (95575) CK 199 U/L (Abnormal) Range: 26-190 12:07 ALT (56104) ALT 35 [iU]/L (Normal) Range: 30-65 12:07 [...] 3.5-5.0 NA 142 mmol/L (Normal) Range: 135-145 28-Sep-2010 12:46 BASIC METABOLIC PANEL- [facility] [place] (89428) Comments: See paper results 12:45 CBC PLATELETS & AUTO /DIFF MALE (08632) Comments: See paper results 12:12 HEMOGLOBIN GLYCLATED (HGB A1C) (75872) Comments: See paper results Treatment Plan * VENIPUNCTURE; Ordered: 02/23/2014 * LIPID PANEL (01137); Ordered: 06/15/2011 Advance Directives Encounters Medication Entry - Controlled diabetes mellitus (250.00 | E11.9) [facility] On 22-Nov-2014 14:11 to 14:17 Medication Entry [facility] On 07-Jun-2014 15:01 to 15:07 Office Visit - COMBO MEDICARE HIGH DOSE INFLUENZA AND PREVNAR PNEUMOVAX ( Renamed from Need for prophylactic vaccination against Streptococcus pneumoniae (pneumococcus) and influenza) (V06.6 | Z23), 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 [facility] 10-May-2012 to 12-May-2012 Office [...] basal insulin, bolus insulin, metformin , glyburide, MRACUS inhibitor, angiotensin receptor jack, dietary modification [...] fat diet, aspirin, MARCUS inhibitors and statins. [facility] 15-Oct-2011 to 18-Oct-2011 Historical Summary [facility] On 14-Oct-2011 15:43 to [...] of oral contraceptives, visual disturbances or weakness. [facility] On 11-Jun-2011 11:27 to 12:04 Historical Summary [facility] On 11-Jun-2011 08:17 to [...] of oral contraceptives, visual disturbances or weakness. [facility] to Lab entry only - Diabetes mellitus (250.00) [facility] On 24-Oct-2010 10:43 to [...] good tolerance of treatment and good symptom control.[facility] 28-Aug-2010 to 29-Aug-2010 Office [...] myocardial infarction and sudden (Dad suddenly of [place] at the age of 72.). Pertinent social [...] last visit. Onset was 15 year(s) ago. [facility] 24-Apr-2010 to 30-Apr-2010 Lab entry only - Diabetes mellitus type 1 (250.01), Hypertension, benign ( 401.1), Hypercholesterolemia (272.0) [facility] On 22-Apr-2010 12:43 to 14:00 Lab entry only - Diabetes mellitus type 1 (250.01) [facility] On 22-Apr-2010 12:09 to 12:13 Historical Summary - Pre-operative examination (V72.84), Coronary atherosclerosis (414.00) [facility] On 22-Apr-2010 11:35 to 12:09 Insurance * Chi Lowry ; chuck guarantor * Medicare WPS * BS Plan 65
--- OUTSIDE RECORDS SUMMARY | 2017-04-29 00:32 | XMS REPORT | Continuity of Care Document ---
Author Author [facility] Organization [facility] Address [address] [place] [address] Phone Care Team Providers Care Laboratory Secretary Name Role Phone Aakash Hernández MD PP Aakash Hernández MD Unavailable Problems Name Dates Details Acquired hypothyroidism (244.9, E03.9) Status: Active Anemia (Renamed from Absolute anemia) (285.9, D64.9) Status: Active Atherosclerosis of [place] coronary artery of [place] heart without angina pectoris (414.01, I25.10) Status: [...] Active LEVEMIR FLEXTOUCH, 100UNIT/ML (Subcutaneous Solution Pen-injector) 20 units two times daily for 30 days Quantity: 5 {Pre-filled_Pen_Syringe} Ordered:26-Mar-2015 Aakash Hernández MD* Start 26-Mar-2015 [...] Start 22-Nov-2014 End Inactive Comments: faxed to [facility] GLYBURIDE, 5MG (Oral Tablet) - Historical Medication daily (5 MG) Inactive HYDROCHLOROTHIAZIDE, 25MG (Oral Tablet) - Historical Medication daily (25 MG) Inactive LANTUS SOLOSTAR, 100UNIT/ML (Subcutaneous Solution Pen-injector) 5 units units at bedtime for 90 days * Quantity: 450 {Milliliter} Refills: 4 Ordered: Imelda Mena R.N.* Start 22-Nov-2014 End Inactive Comments: rx faxed to [facility] LEVOTHYROXINE SODIUM, 75MCG (Oral Tablet) 1 (one) Tablet Tablet daily for 30 days * Quantity: 30 {Tablet} Refills: 12 Ordered:26-Nov-2014 Imelda Mena R.N.* Start End 26-Nov-2014 Inactive LISINOPRIL, 20MG (Oral Tablet) - Historical Medication one-half tablet of 40mg daily (20 MG) Inactive LISINOPRIL, 5MG (Oral Tablet) - Historical Medication daily (5 MG) Inactive Comments: faxed to [facility] NAMENDA XR TITRATION PACK, 7 & 14 & 21 &28MG (Oral Capsule Extended Release 24 Hour) 1 (one) Capsule ER 24HR Capsule ER 24HR as directed for 30 days * Quantity: 60 {Capsule} Refills: 0 Ordered: Aakash Hernnádez MD* Start End Inactive Novalog Insulin 70/30 [...] online Completed:26-Mar-2015 INFLUENZA QUADRIVALENT VAC: FLU VACC ([id number]) Completed:27-Mar-2015 ADMINISTRATION OF INFLUENZA VIRUS VACCINE (G0008) [...] (G0009) Ordered:15-May-2014 PREVNAR 13 VALENT PNEUMOCOCCAL VACCINE ([id number]) Completed:07-Jun-2014 ADMINISTRATION OF INFLUENZA VACCINE (G0008) Ordered:15-May-2014 HIGH DOSE QUADRIVALENT INFLUENZA VACCINE ([id number]) Completed:07-Jun-2014 Follow up in 4 months Ordered: Follow up in 4 months Ordered:03-Aug-2013 ADMIN INFLUENZA VIRUS VAC: FLU VACC PRSV FREE INC ANTIG ([id number]) Completed: Comments: CAC order ADMINISTRATION OF INFLUENZA VIRUS VACCINE (G0008) Ordered:03-May-2013 Comments: CAC order Follow up in 4 months Ordered:16-Mar-2013 CAROTID BILATERAL US ([id number]) Ordered:09-Nov-2012 Follow up in 4 months Ordered:08-Nov-2012 ADMIN INFLUENZA VIRUS VAC: FLU VACC PRSV FREE INC ANTIG ([id number]) Ordered: ADMINISTRATION OF INFLUENZA VIRUS VACCINE (G0008) Ordered:10-May-2012 CAROTID BILATERAL US ([id number]) Ordered:15-Oct-2011 ADMINISTRATION OF INFLUENZA VIRUS VACCINE (G0008) Ordered:11-Jun-2011 FLU VACC PRSV FREE INC ANTIG ([id number]) Completed:15-Jun-2011 Chronic Kidney Failure *: chronic renal insufficiency Ordered:11-Jun-2011 Follow up in 4 months Ordered: Follow up in 4 months Ordered:28-Aug-2010 EXTREMITY STUDY ([id number]) Ordered:28-Aug-[address] SCAN OF LUMBAR SPINE (05186) Ordered:28-Aug-2010 ADMINISTRATION OF INFLUENZA VIRUS VACCINE (G0008) Completed:30-May-2010 FLU VACCINE, 3 YRS & >, IM ([id number]) Completed:24-Apr-2010 Catheterization, Left Heart-Skin Completed:02-Dec-2004 EKG Completed:13-Nov-2014 EKG Completed:22-Apr-2010 Flu Vaccine Completed:10-May-2012 Flu Vaccine Completed:26-Mar-2015 Pneumovax Completed:01-May-2008 Prevnar 13 Completed:15-May-2014 PSA Completed: Comments: (3.58) PSA Completed:03-Aug-2013 Comments: (3.93) Immunization Name Dates Details Fluzone Lot #: [id number] Administered on:11-Jun-2011 Comments: Site: Deltoid (Left) Influenza (3 years and up) Lot #: [id number] Administered on:24-Apr-2010 Comments: Site: Deltoid (Left) Influenza, preserv. free, enhanced immunogncty, IM Lot #: [id number] Administered on:26-Mar-2015 Comments: Site: Deltoid (Left) Influenza, preserv. free, enhanced immunogncty, IM Lot #: [id number] Administered on:03-May-2013 Comments: Site: Deltoid (Left) Influenza, preserv. free, enhanced immunogncty, IM Lot #: [id number] Administered on:15-May-2014 Comments: Site: Deltoid (Right) Pneumococcal (2 years and up) Administered on:01-May-2008 Pneumococcal conjugate vaccine, 13 valent, IM Lot #: [id number] Administered on:15-May-2014 Comments: Site: Deltoid (Left) Family History Name Dates Details Brother 1 Comments: healthy Status: Active Brother 2 Comments: borderline diabetes Status: Active Father Comments: 72 yo of [place] Status: Active Mother Comments: at 67 of [...] Description Value Details 22-Apr-2010 11:37 ELECTROCARDIOGRAM, COMPLETE (48405) [EKG] IA Interval: 1 mm Pending 26-Nov-2014 15:59 BMP [...] (Normal) 28-Feb-2014 09:48 TSH (THYROID STIMULATING HORMONE) (17338) Comments: Items in this order include: Draw [...] ng/mL (Normal) Range: 0.00-4.00 11:15 Urine Microalbumin (41817) Comments: Items in this order include: Draw [...] kb. Draw Drawn (Normal) 16-Mar-2013 11:42 CK ([id number]) Comments: Items in this order include: Basic Metabolic Panel, Hemoglobin A1C, Draw Charge[i], ALT, CKILast Hgb A1C was ran 128 Days ago. Check by kb CKI 220 U/L (Normal) Range: 39-308 11:42 ALT (39776) Comments: Items in this order include: Basic [...] Draw Drawn (Normal) 11-Nov-2012 08:39 LIPID PANEL (48870) Comments: Items in this order include: Draw [...] include: Draw Charge[i], Basic Metabolic Panel, Hemoglobin S3HRtwe Hgb A1C was ran 182 Days ago. Check by kb Range: 4.6-6.2 Comments: Consistent with diabetes. 11:08 BMP Comments: Items in this order include: Draw Charge[i], Basic Metabolic Panel, Hemoglobin C2QEuii Hgb A1C was ran 182 Days ago. [...] include: Draw Charge[i], Basic Metabolic Panel, Hemoglobin V3EWueh Hgb A1C was ran 182 Days ago. Check by kb Draw Drawn (Normal) 10-May-2012 11:35 TSH (THYROID STIMULATING HORMONE) ([id number]) Comments: Items in this order include: Draw Charge[i], Basic Metabolic Panel, Hemoglobin A1C, Urine Microalbumin, TSHLast Hgb A1C was ran 208 Days ago. Check by KB TSH 4.90 uIU/ml (Normal) Range: 0.34-5.60 11:35 Urine Microalbumin (08950) Comments: Items in this order include: Draw [...] (Normal) 11-Jun-2011 12:08 CBC-MALE- ORDER THIS ONE! ([id number]) Comments: Items in this order include: Hemoglobin [...] Comments: Consistent with diabetes. 16:22 Urine Microalbumin (49759) Comments: Items in this order include: Basic [...] (Normal) Range: 135-145 24-Oct-2010 10:57 CREATININE BLOOD (72705) Comments: Verbal order from Dr. Aakash Hernández; Verbal order from Dr. Aakash Hernández eGFR 52.0 mL/min/1.73m2 (Abnormal) Range: >60.0 CREAT 1.4 mg/dL (Abnormal) Range: 0.6-1.3 28-Aug-2010 12:07 TSH (THYROID STIMULATING HORMONE) (64201) TSH 5.29 uIU/ml (Normal) Range: 0.34-5.60 12:07 CBC-MALE- ORDER THIS ONE! (21561) manual diff Not Indicated (Normal) MCHC 35.4 [...] 8.82 10*3/uL (Normal) Range: 4.50-10.50 12:07 CK (93949) CK 199 U/L (Abnormal) Range: 26-190 12:07 ALT (52893) ALT 35 [iU]/L (Normal) Range: 30-65 12:07 [...] Range: 135-145 22-Apr-2010 12:46 BASIC METABOLIC PANEL- [facility] ([id number]) Comments: See paper results 12:45 CBC PLATELETS & AUTO /DIFF MALE (38794) Comments: See paper results 12:12 HEMOGLOBIN GLYCLATED (HGB A1C) (34578) Comments: See paper results Treatment Plan * VENIPUNCTURE; Ordered: 02/23/2014 * LIPID PANEL (39277); Ordered: 06/15/2011 Advance Directives Encounters Office Visit - Fluzone High Dose MEDICARE VACCINE AGAINST INFLUENZA (V04.81), Controlled diabetes mellitus (250.00 | E11.9), Kidney disease, chronic, stage III (moderate, EGFR 30-59 ml/min) (585.3 | N18.3), Benign essential hypertension (401.1 | I10), Atherosclerosis of [place] coronary artery of [place] heart without angina pectoris (414.01 | I25.10) [...] was [facility] 12[facility]11[facility]2014 [facility] and the result was 8.4 %. [...] tolerance of treatment and fair symptom control. [facility] On 26-Mar-2015 08:43 to 11:48 Office Visit - Controlled diabetes mellitus (250.00 | E11.9), Atherosclerosis of [place] coronary artery of [place] heart without angina pectoris (414.01 | I25.10), [...] tolerance of treatment and fair symptom control. [facility] On 13:35 to 16:41 [...] tolerance of treatment and fair symptom control. [facility] On 13:23 to 16:54 Office Visit - Controlled diabetes mellitus (250.00 | E11.9), Kidney disease, chronic, stage III (moderate, EGFR 30-59 ml/min) (585.3 | N18.3), Atherosclerotic heart disease of [place] coronary artery without angina pectoris (414.01 | I25.10), Acquired hypothyroidism (244.9 | E03.9), Benign essential hypertension (401.1 | I10), Senile dementia, without behavioral disturbance ( 290.0 | F03.90) Encounter Reason: Transition into care - The patient is transitioning into care from a hospital (dismissed from [facility] on 11/17/2014.) and a summary of care was reviewed ., [ADDITIONAL REASON] Diabetes Type II, Follow Up - The last clinic visit was 9 day(s) ago (dismissed from [facility] on 11/17/2014.). Symptoms do not [...] tolerance of treatment and fair symptom control. 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 [facility] On 11:49 to 16:18 Historical Summary [facility] On 10:50 to 10:53 Office Visit - Atherosclerotic heart disease of [place] coronary artery without angina pectoris (414.01 | [...] fat diet, aspirin, MARCUS inhibitors and statins. 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 [facility] On 16-Mar-2013 10:17 to 11:40 Office Visit - Benign essential hypertension (401.1 | I10), Kidney disease, chronic, stage III (GFR 30-59 ml/min) (585.3), Atherosclerotic heart disease of [place] coronary artery without angina pectoris (414.01 | [...] fat diet, aspirin, MARCUS inhibitors and statins. 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 [facility] 10-May-2012 to 12-May-2012 Office [...] fat diet, aspirin, MARCUS inhibitors and statins. [facility] 15-Oct-2011 to 18-Oct-2011 Historical Summary [facility] On 14-Oct-2011 15:43 to [...] of oral contraceptives, visual disturbances or weakness. [facility] On 11-Jun-2011 11:27 to 12:04 Historical Summary [facility] On 11-Jun-2011 08:17 to [...] of oral contraceptives, visual disturbances or weakness. [facility] to Lab entry only - Diabetes mellitus (250.00) [facility] On 24-Oct-2010 10:43 to [...] good tolerance of treatment and good symptom control.[facility] 28-Aug-2010 to 29-Aug-2010 Office [...] myocardial infarction and sudden (Dad suddenly of [place] at the age of 72.). Pertinent social [...] last visit. Onset was 15 year(s) ago. [facility] 24-Apr-2010 to 30-Apr-2010 Lab entry only - Diabetes mellitus type 1 (250.01), Hypertension, benign ( 401.1), Hypercholesterolemia (272.0) [facility] On 22-Apr-2010 12:43 to 14:00 Lab entry only - Diabetes mellitus type 1 (250.01) [facility] On 22-Apr-2010 12:09 to 12:13 Historical Summary - Pre-operative examination (V72.84), Coronary atherosclerosis (414.00) [facility] On 22-Apr-2010 11:35 to 12:09 Insurance * Chi Lowry ; a guarantor * Medicare WPS * BS Plan 65
--- OUTSIDE RECORDS SUMMARY | 2017-04-29 00:33 | XMS REPORT | Continuity of Care Document ---
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, I25.10) Status: [...] Historical Medication daily (1 MG) Active GLIPIZIDE, 5MG (Oral Tablet) - Historical Medication daily (5 MG) Active LEVEMIR FLEXTOUCH, 100UNIT/ML (Subcutaneous Solution Pen-injector) 5 units Soln Pen-inj two times daily for 30 days Quantity: 1 {Pre-filled_Pen_Syringe} Ordered: Aakash Hernández MD* Start Active LISINOPRIL, 5MG [...] Historical Medication at bedtime (40 MG) Active CITALOPRAM HYDROBROMIDE, 40MG (Oral Tablet) [...] Start 22-Nov-2014 End Inactive Comments: faxed to [facility] GLYBURIDE, 5MG (Oral Tablet) - Historical Medication daily (5 MG) Inactive HYDROCHLOROTHIAZIDE, 25MG (Oral Tablet) - Historical Medication daily (25 MG) Inactive LANTUS SOLOSTAR, 100UNIT/ML (Subcutaneous Solution Pen-injector) 5 units units at bedtime for 90 days * Quantity: 450 {Milliliter} Refills: 4 Ordered: Imelda Mena R.N.* Start 22-Nov-2014 End Inactive Comments: rx faxed to [facility] LEVOTHYROXINE SODIUM, 75MCG (Oral Tablet) 1 (one) Tablet Tablet daily for 30 days * Quantity: 30 {Tablet} Refills: 12 Ordered:26-Nov-2014 Imelda Mena R.N.* Start End 26-Nov-2014 Inactive LISINOPRIL, 20MG (Oral Tablet) - Historical Medication one-half tablet of 40mg daily (20 MG) Inactive LISINOPRIL, 5MG (Oral Tablet) - Historical Medication daily (5 MG) Inactive Comments: faxed to [facility] Novalog Insulin 70/30 - Historical Medication [...] Dates Details Follow up in 2 months Ordered: How to access health information online Completed: Follow up in 3 weeks Ordered: How to access health information online Completed: Follow up in 6 weeks Ordered:26-Nov-2014 How to access health information online Completed:26-Nov-2014 Follow up in 6 months Ordered:15-May-2014 ADMINISTRATION OF PNEUMOCOCCAL CONJUGATE VACCINE (G0009) Ordered:15-May-2014 PREVNAR 13 VALENT PNEUMOCOCCAL VACCINE ([id number]) Completed:07-Jun-2014 ADMINISTRATION OF INFLUENZA VACCINE (G0008) Ordered:15-May-2014 HIGH DOSE QUADRIVALENT INFLUENZA VACCINE ([id number]) Completed:07-Jun-2014 Follow up in 4 months Ordered: Follow up in 4 months Ordered:03-Aug-2013 ADMIN INFLUENZA VIRUS VAC: FLU VACC PRSV FREE INC ANTIG ([id number]) Completed: Comments: CAC order ADMINISTRATION OF INFLUENZA VIRUS VACCINE (G0008) Ordered:03-May-2013 Comments: CAC order Follow up in 4 months Ordered:16-Mar-2013 CAROTID BILATERAL US ([id number]) Ordered:09-Nov-2012 Follow up in 4 months Ordered:08-Nov-2012 ADMIN INFLUENZA VIRUS VAC: FLU VACC PRSV FREE INC ANTIG ([id number]) Ordered: ADMINISTRATION OF INFLUENZA VIRUS VACCINE (G0008) Ordered:10-May-2012 CAROTID BILATERAL US ([id number]) Ordered:15-Oct-2011 ADMINISTRATION OF INFLUENZA VIRUS VACCINE (G0008) Ordered:11-Jun-2011 FLU VACC PRSV FREE INC ANTIG ([id number]) Completed:15-Jun-2011 Chronic Kidney Failure *: chronic renal insufficiency Ordered:11-Jun-2011 Follow up in 4 months Ordered: Follow up in 4 months Ordered:28-Aug-2010 EXTREMITY STUDY ([id number]) Ordered:28-Aug-[address] SCAN OF LUMBAR SPINE ([id number]) Ordered:28-Aug-2010 ADMINISTRATION OF INFLUENZA VIRUS VACCINE (G0008) Completed:30-May-2010 FLU VACCINE, 3 YRS & >, IM ([id number]) Completed:24-Apr-2010 Catheterization, Left Heart-Skin Completed:02-Dec-2004 EKG Completed:13-Nov-2014 EKG Completed:22-Apr-2010 Flu Vaccine Completed:10-May-2012 Flu Vaccine Completed:15-May-2014 Pneumovax Completed:01-May-2008 Prevnar 13 Completed:15-May-2014 PSA Completed:03-Aug-2013 Comments: (3.93) PSA Completed: Comments: (3.58) Immunization Name Dates Details Fluzone Lot #: [id number] Administered on:11-Jun-2011 Comments: Site: Deltoid (Left) Influenza (3 years and up) Lot #: [id number] Administered on:24-Apr-2010 Comments: Site: Deltoid (Left) Influenza, preserv. free, enhanced immunogncty, IM Lot #: [id number] Administered on:03-May-2013 Comments: Site: Deltoid (Left) Influenza, preserv. free, enhanced immunogncty, IM Lot #: [id number] Administered on:15-May-2014 Comments: Site: Deltoid (Right) Pneumococcal (2 years and up) Administered on:01-May-2008 Pneumococcal conjugate vaccine, 13 valent, IM Lot #: [id number] Administered on:15-May-2014 Comments: Site: Deltoid (Left) Family [...] Active Vital Signs Date Test Result Details 16:07 Temperature 97.9 f Comments: Method: Temporal [...] Description Value Details 22-Apr-2010 11:37 ELECTROCARDIOGRAM, COMPLETE ([id number]) [EKG] SC Interval: 1 mm Pending 26-Nov-2014 15:59 BMP [...] (Normal) 28-Feb-2014 09:48 TSH (THYROID STIMULATING HORMONE) ([id number]) Comments: Items in this order include: Draw [...] ng/mL (Normal) Range: 0.00-4.00 11:15 Urine Microalbumin (08376) Comments: Items in this order include: Draw [...] kb. Draw Drawn (Normal) 16-Mar-2013 11:42 CK ([id number]) Comments: Items in this order include: Basic Metabolic Panel, Hemoglobin A1C, Draw Charge[i], ALT, CKILast Hgb A1C was ran 128 Days ago. Check by kb CKI 220 U/L (Normal) Range: 39-308 11:42 ALT (09070) Comments: Items in this order include: Basic [...] Draw Drawn (Normal) 11-Nov-2012 08:39 LIPID PANEL (04684) Comments: Items in this order include: Draw [...] include: Draw Charge[i], Basic Metabolic Panel, Hemoglobin [id number] Hgb A1C was ran 182 Days ago. Check by kb Range: 4.6-6.2 Comments: Consistent with diabetes. 11:08 BMP Comments: Items in this order include: Draw Charge[i], Basic Metabolic Panel, Hemoglobin [id number] Hgb A1C was ran 182 Days ago. [...] include: Draw Charge[i], Basic Metabolic Panel, Hemoglobin [id number] Hgb A1C was ran 182 Days ago. Check by kb Draw Drawn (Normal) 10-May-2012 11:35 TSH (THYROID STIMULATING HORMONE) ([id number]) Comments: Items in this order include: Draw Charge[i], Basic Metabolic Panel, Hemoglobin A1C, Urine Microalbumin, TSHLast Hgb A1C was ran 208 Days ago. Check by KB TSH 4.90 uIU/ml (Normal) Range: 0.34-5.60 11:35 Urine Microalbumin (16876) Comments: Items in this order include: Draw [...] (Normal) 11-Jun-2011 12:08 CBC-MALE- ORDER THIS ONE! ([id number]) Comments: Items in this order include: Hemoglobin [...] Comments: Consistent with diabetes. 16:22 Urine Microalbumin (51411) Comments: Items in this order include: Basic [...] (Normal) Range: 135-145 24-Oct-2010 10:57 CREATININE BLOOD (31439) Comments: Verbal order from Dr. Aakash Hernández; Verbal order from Dr. Aakash Hernández eGFR 52.0 mL/min/1.73m2 (Abnormal) Range: >60.0 CREAT 1.4 mg/dL (Abnormal) Range: 0.6-1.3 28-Aug-2010 12:07 TSH (THYROID STIMULATING HORMONE) (72910) TSH 5.29 uIU/ml (Normal) Range: 0.34-5.60 12:07 CBC-MALE- ORDER THIS ONE! (99794) manual diff Not Indicated (Normal) MCHC 35.4 [...] 8.82 10*3/uL (Normal) Range: 4.50-10.50 12:07 CK (23236) CK 199 U/L (Abnormal) Range: 26-190 12:07 ALT (01641) ALT 35 [iU]/L (Normal) Range: 30-65 12:07 [...] Range: 135-145 22-Apr-2010 12:46 BASIC METABOLIC PANEL- [facility] [id number][place] Comments: See paper results 12:45 CBC PLATELETS & AUTO /DIFF MALE (27804) Comments: See paper results 12:12 HEMOGLOBIN GLYCLATED (HGB A1C) (55460) Comments: See paper results Treatment Plan * VENIPUNCTURE; Ordered: 02/23/2014 * LIPID PANEL ([id number]); Ordered: 06/15/2011 Advance Directives Encounters Office Visit - Controlled diabetes mellitus (250.00 | E11.9), Atherosclerosis 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 [facility] On 13:35 to 16:41 Office Visit [...] of treatment and fair symptom control. [facility] On 13:23 to 16:54 Office Visit - Controlled diabetes mellitus (250.00 | E11.9), Kidney disease, chronic, stage III (moderate, EGFR 30-59 ml/min) (585.3 | N18.3), Atherosclerotic heart disease of [place] coronary artery without angina pectoris (414.01 | [...] lipid testing was done on 2013 (at [facility]) and the results included total cholesterol 167 [...] of treatment and fair symptom control. [facility] On 26-Nov-2014 13:52 to 16:06 Historical Summary [facility] On 23-Nov-2014 10:32 to 10:37 Medication Entry - Controlled diabetes mellitus (250.00 | E11.9) [facility] On 22-Nov-2014 14:11 to 14:17 Medication Entry [facility] On 07-Jun-2014 15:01 to 15:07 Office Visit - COMBO MEDICARE HIGH DOSE INFLUENZA AND PREVNAR PNEUMOVAX ( Renamed from Need for prophylactic vaccination against Streptococcus pneumoniae (pneumococcus) and influenza) (V06.6 | Z23), Atherosclerotic heart disease of [place] coronary artery without angina pectoris (414.01 | [...] lipid testing was done on 12/08/2013 (at [facility]) and the results included total cholesterol 167 [...] diet, aspirin, MARCUS inhibitors and statins. [facility] On 15-May-2014 14:23 to 16:08 Medication Entry [facility] On 12:04 to 12:12 Office Visit - Controlled diabetes mellitus (250.00 | E11.9), Benign essential hypertension (401.1 | I10), Atherosclerotic heart disease of [place] coronary artery without angina pectoris (414.01 | [...] Hgb A1c was done on 2013 (at [facility]) and the result was 8.3 %. Most recent microalbumin was done on 12/08 and the result was mcg/mg Creatinine (64). Most recent lipid testing was done on 12/08/2013 (at [facility]) and the results included total cholesterol 167 [...] diet, aspirin, MARCUS inhibitors and statins. [facility] On 11:49 to 16:18 Historical Summary [facility] On 10:50 to 10:53 Office Visit - Atherosclerotic heart disease of [place] coronary artery without angina pectoris (414.01 | [...] diet, aspirin, MARCUS inhibitors and statins. [facility] On 03-Aug-2013 08:48 to 11:10 Historical Summary [facility] On 02-Aug-2013 10:28 to 10:30 Nurse Visit - Need for prophylactic vaccination and inoculation against influenza (V04.81) [facility] On 03-May-2013 12:59 to 13:01 Office Visit - Controlled diabetes mellitus (250.00 | E11.9), Kidney disease, chronic, stage III (moderate, EGFR 30-59 ml/min) (585.3 | N18.3), Atherosclerotic heart disease of [place] coronary artery without angina pectoris (414.01 | [...] diet, aspirin, MARCUS inhibitors and statins. [facility] On 16-Mar-2013 10:17 to 11:40 Office Visit - Benign essential hypertension (401.1 | I10), Kidney disease, chronic, stage III (GFR 30-59 ml/min) (585.3), Atherosclerotic heart disease of [place] coronary artery without angina pectoris (414.01 | [...] diet, aspirin, MARCUS inhibitors and statins. [facility] On 08-Nov-2012 10:08 to 11:01 Office Visit - Fluzone High Dose MEDICARE VACCINE AGAINST INFLUENZA (V04.81), Type II diabetes mellitus (250.00), Hypertension, benign (401.1), Peripheral vascular disease (Renamed from Peripheral blood vessel disorder) (443.9 | I73.9) , Kidney disease, chronic, stage III (GFR 30-59 ml/min) (585.3), Atherosclerotic heart disease of [place] coronary artery without angina pectoris (414.01 | [...] diet, aspirin, MARCUS inhibitors and statins. [facility] 10-May-2012 to 12-May-2012 Office Visit - [...] diet, aspirin, MARCUS inhibitors and statins. [facility] 15-Oct-2011 to 18-Oct-2011 Historical Summary [facility] On 14-Oct-2011 15:43 to 16:07 Office [...] treatment includes a low fat diet, aspirin, MACRUS inhibitors and statins. , [ ADDITIONAL REASON] [...] oral contraceptives, visual disturbances or weakness. [facility] On 11-Jun-2011 11:27 to 12:04 Historical Summary [facility] On 11-Jun-2011 08:17 to 08:20 Office [...] oral contraceptives, visual disturbances or weakness. [facility] to Lab entry only - Diabetes mellitus (250.00) [facility] On 24-Oct-2010 10:43 to 10:45 Office [...] tolerance of treatment and good symptom control.[facility] 28-Aug-2010 to 29-Aug-2010 Office Visit - [...] visit. Onset was 15 year(s) ago. [facility] 24-Apr-2010 to 30-Apr-2010 Lab entry only - Diabetes mellitus type 1 (250.01), Hypertension, benign ( 401.1), Hypercholesterolemia (272.0) [facility] On 22-Apr-2010 12:43 to 14:00 Lab entry only - Diabetes mellitus type 1 (250.01) [facility] On 22-Apr-2010 12:09 to 12:13 Historical Summary - Pre-operative examination (V72.84), Coronary atherosclerosis (414.00) [facility] On 22-Apr-2010 11:35 to 12:09 Insurance * Chi Lowry ; chuck guarantor * Medicare WPS * BS Plan 65
--- OUTSIDE RECORDS SUMMARY | 2017-04-29 00:34 | XMS REPORT | Continuity of Care Document ---
Author Author [facility] Organization [facility] Address [address] [place] [address] Phone Care Team Providers Care Lamp Stack Developer Name Role Phone Aakash Hernández MD PP Aakash Hernández MD Unavailable Shaylee Rajput Unavailable Unavailable Josie Allison Unavailable Unavailable Problems Name Dates Details Acquired hypothyroidism (244.9, E03.9) Status: Active Anemia (Renamed from Absolute anemia) (285.9, D64.9) Status: Active Atherosclerosis of [place] coronary artery of [place] heart without angina pectoris (414.01, I25.10) Status: [...] daily Active DONEPEZIL HCL, 10MG (Oral Tablet) 1/2 tablet daily (10 MG) Active FOLIC [...] (5 MG) Inactive Comments: faxed to [facility] XR TITRATION PACK, 7 & 14 [...] online Completed:26-Mar-2015 INFLUENZA QUADRIVALENT VAC: FLU VACC ([id number]) Completed:27-Mar-2015 ADMINISTRATION OF INFLUENZA VIRUS VACCINE (G0008) [...] (G0009) Ordered:15-May-2014 PREVNAR 13 VALENT PNEUMOCOCCAL VACCINE ([id number]) Completed:07-Jun-2014 ADMINISTRATION OF INFLUENZA VACCINE (G0008) Ordered:15-May-2014 HIGH DOSE QUADRIVALENT INFLUENZA VACCINE ([id number]) Completed:07-Jun-2014 Follow up in 4 months Ordered: Follow up in 4 months Ordered:03-Aug-2013 ADMIN INFLUENZA VIRUS VAC: FLU VACC PRSV FREE INC ANTIG ([id number]) Completed: Comments: CAC order ADMINISTRATION OF INFLUENZA VIRUS VACCINE (G0008) Ordered:03-May-2013 Comments: CAC order Follow up in 4 months Ordered:16-Mar-2013 CAROTID BILATERAL US ([id number]) Ordered:09-Nov-2012 Follow up in 4 months Ordered:08-Nov-2012 ADMIN INFLUENZA VIRUS VAC: FLU VACC PRSV FREE INC ANTIG ([id number]) Ordered: ADMINISTRATION OF INFLUENZA VIRUS VACCINE (G0008) Ordered:10-May-2012 CAROTID BILATERAL US ([id number]) Ordered:15-Oct-2011 ADMINISTRATION OF INFLUENZA VIRUS VACCINE (G0008) Ordered:11-Jun-2011 FLU VACC PRSV FREE INC ANTIG ([id number]) Completed:15-Jun-2011 Chronic Kidney Failure *: chronic renal insufficiency Ordered:11-Jun-2011 Follow up in 4 months Ordered: Follow up in 4 months Ordered:28-Aug-2010 EXTREMITY STUDY ([id number]) Ordered:28-Aug-[address] SCAN OF LUMBAR SPINE (61571) Ordered:28-Aug-2010 ADMINISTRATION OF INFLUENZA VIRUS VACCINE (G0008) Completed:30-May-2010 FLU VACCINE, 3 YRS & >, IM ([id number]) Completed:24-Apr-2010 Catheterization, Left Heart-Skin Completed:02-Dec-2004 EKG Completed:13-Nov-2014 EKG Completed:22-Apr-2010 Flu Vaccine Completed:10-May-2012 Flu Vaccine Completed:26-Mar-2015 Pneumovax Completed:01-May-2008 Prevnar 13 Completed:15-May-2014 PSA Completed:03-Aug-2013 Comments: (3.93) PSA Completed: Comments: (3.58) Immunization Name Dates Details Fluzone Lot #: [id number] Administered on:11-Jun-2011 Comments: Site: Deltoid (Left) Influenza (3 years and up) Lot #: [id number] Administered on:24-Apr-2010 Comments: Site: Deltoid (Left) Influenza, preserv. free, enhanced immunogncty, IM Lot #: [id number] Administered on:26-Mar-2015 Comments: Site: Deltoid (Left) Influenza, preserv. free, enhanced immunogncty, IM Lot #: [id number] Administered on:03-May-2013 Comments: Site: Deltoid (Left) Influenza, preserv. free, enhanced immunogncty, IM Lot #: [id number] Administered on:15-May-2014 Comments: Site: Deltoid (Right) Pneumococcal (2 years and up) Administered on:01-May-2008 Pneumococcal conjugate vaccine, 13 valent, IM Lot #: [id number] Administered on:15-May-2014 Comments: Site: Deltoid (Left) Family History Name Dates Details Brother 1 Comments: healthy Status: Active Brother 2 Comments: borderline diabetes Status: Active Father Comments: 72 yo of [place] Status: Active Mother Comments: at 67 of [...] Description Value Details 22-Apr-2010 11:37 ELECTROCARDIOGRAM, COMPLETE ([id number]) [EKG] [place] Interval: 1 mm Pending 07-May-2015 11:58 A1C [...] (Normal) 28-Feb-2014 09:48 TSH (THYROID STIMULATING HORMONE) ([id number]) Comments: Items in this order include: Draw [...] ng/mL (Normal) Range: 0.00-4.00 11:15 Urine Microalbumin (64902) Comments: Items in this order include: Draw [...] kb. Draw Drawn (Normal) 16-Mar-2013 11:42 CK ([id number]) Comments: Items in this order include: Basic Metabolic Panel, Hemoglobin A1C, Draw Charge[i], ALT, CKILast Hgb A1C was ran 128 Days ago. Check by kb CKI 220 U/L (Normal) Range: 39-308 11:42 ALT (02675) Comments: Items in this order include: Basic [...] Draw Drawn (Normal) 11-Nov-2012 08:39 LIPID PANEL ([id number]) Comments: Items in this order include: Draw [...] include: Draw Charge[i], Basic Metabolic Panel, Hemoglobin [id number] Hgb A1C was ran 182 Days ago. Check by kb Range: 4.6-6.2 Comments: Consistent with diabetes. 11:08 BMP Comments: Items in this order include: Draw Charge[i], Basic Metabolic Panel, Hemoglobin [id number] Hgb A1C was ran 182 Days ago. [...] include: Draw Charge[i], Basic Metabolic Panel, Hemoglobin [id number] Hgb A1C was ran 182 Days ago. Check by kb Draw Drawn (Normal) 10-May-2012 11:35 TSH (THYROID STIMULATING HORMONE) (68303) Comments: Items in this order include: Draw Charge[i], Basic Metabolic Panel, Hemoglobin A1C, Urine Microalbumin, TSHLast Hgb A1C was ran 208 Days ago. Check by KB TSH 4.90 uIU/ml (Normal) Range: 0.34-5.60 11:35 Urine Microalbumin (15144) Comments: Items in this order include: Draw [...] (Normal) 11-Jun-2011 12:08 CBC-MALE- ORDER THIS ONE! ([id number]) Comments: Items in this order include: Hemoglobin [...] Comments: Consistent with diabetes. 16:22 Urine Microalbumin (94756) Comments: Items in this order include: Basic [...] (Normal) Range: 135-145 24-Oct-2010 10:57 CREATININE BLOOD (12893) Comments: Verbal order from Dr. Aakash Hernández; Verbal order from Dr. Aakash Hernández eGFR 52.0 mL/min/1.73m2 (Abnormal) Range: >60.0 CREAT 1.4 mg/dL (Abnormal) Range: 0.6-1.3 28-Aug-2010 12:07 TSH (THYROID STIMULATING HORMONE) (14705) TSH 5.29 uIU/ml (Normal) Range: 0.34-5.60 12:07 CBC-MALE- ORDER THIS ONE! (18136) manual diff Not Indicated (Normal) MCHC 35.4 [...] 8.82 10*3/uL (Normal) Range: 4.50-10.50 12:07 CK (88520) CK 199 U/L (Abnormal) Range: 26-190 12:07 ALT (91550) ALT 35 [iU]/L (Normal) Range: 30-65 12:07 [...] 22-Apr-2010 12:46 BASIC METABOLIC PANEL- [facility] [place] ([id number]) Comments: See paper results 12:45 CBC PLATELETS & AUTO /DIFF MALE (55523) Comments: See paper results 12:12 HEMOGLOBIN GLYCLATED (HGB A1C) (54431) Comments: See paper results Treatment Plan * VENIPUNCTURE; Ordered: 02/23/2014 * LIPID PANEL ([id number]); Ordered: 06/15/2011 Advance Directives Encounters Review - [...] recent microalbumin result was mcg/mg Creatinine (64). [facility] On 23-Jul-2015 14:42 Office Visit - Kidney disease, chronic, stage [...] was done on 12/11/2014 (done at the [facility]) and the result was 8.4 %. Most [...] tolerance of treatment and fair symptom control. 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 Most [...] tolerance of treatment and fair symptom control. [facility] On 26-Mar-2015 08:43 to 11:48 Office Visit - Controlled diabetes mellitus (250.00 | E11.9), Atherosclerosis of [place] coronary artery of [place] heart without angina pectoris (414.01 | I25.10), [...] tolerance of treatment and fair symptom control. [facility] On 13:35 to 16:41 Office [...] tolerance of treatment and fair symptom control. [facility] On 13:23 to 16:54 Office Visit - Controlled diabetes mellitus (250.00 | E11.9), Kidney disease, chronic, stage III (moderate, EGFR 30-59 ml/min) (585.3 | N18.3), Atherosclerotic heart disease of [place] coronary artery without angina pectoris (414.01 | I25.10), Acquired hypothyroidism (244.9 | E03.9), Benign essential hypertension (401.1 | I10), Senile dementia, without behavioral disturbance ( 290.0 | F03.90) Encounter Reason: Transition into care - The patient is transitioning into care from a hospital (dismissed from [facility] [place] on 11/17/2014.) and a summary of care was reviewed ., [ADDITIONAL REASON] Diabetes Type II, Follow Up - The last clinic visit was 9 day(s) ago (dismissed from [facility] [place] on 11/17/2014.). Symptoms do not include polydipsia, [...] tolerance of treatment and fair symptom control. [facility] On 26-Nov-2014 13:52 to 16:06 Historical Summary [facility] On 23-Nov-2014 10:32 to 10:37 Medication Entry - Controlled diabetes mellitus (250.00 | E11.9) [facility] On 22-Nov-2014 14:11 to 14:17 Medication Entry [facility] On 07-Jun-2014 15:01 to 15:07 Office Visit - COMBO MEDICARE HIGH DOSE INFLUENZA AND PREVNAR PNEUMOVAX ( Renamed from Need for prophylactic vaccination against Streptococcus pneumoniae (pneumococcus) and influenza) (V06.6 | Z23), Atherosclerotic heart disease of [place] coronary artery without angina pectoris (414.01 | [...] fat diet, aspirin, MARCUS inhibitors and statins. [facility] On 15-May-2014 14:23 to 16:08 Medication Entry [facility] On 12:04 to 12:12 Office Visit - Controlled diabetes mellitus (250.00 | E11.9), Benign essential hypertension (401.1 | I10), Atherosclerotic heart disease of [place] coronary artery without angina pectoris (414.01 | [...] fat diet, aspirin, MARCUS inhibitors and statins. [facility] On 11:49 to 16:18 Historical Summary [facility] On 10:50 to 10:53 Office Visit - Atherosclerotic heart disease of [place] coronary artery without angina pectoris (414.01 | [...] fat diet, aspirin, MARCUS inhibitors and statins. [facility] On 03-Aug-2013 08:48 to 11:10 Historical Summary [facility] On 02-Aug-2013 10:28 to 10:30 Nurse Visit - Need for prophylactic vaccination and inoculation against influenza (V04.81) [facility] On 03-May-2013 12:59 to 13:01 Office Visit - Controlled diabetes mellitus (250.00 | E11.9), Kidney disease, chronic, stage III (moderate, EGFR 30-59 ml/min) (585.3 | N18.3), Atherosclerotic heart disease of [place] coronary artery without angina pectoris (414.01 | [...] fat diet, aspirin, MARCUS inhibitors and statins. [facility] On 16-Mar-2013 10:17 to 11:40 Office Visit - Benign essential hypertension (401.1 | I10), Kidney disease, chronic, stage III (GFR 30-59 ml/min) (585.3), Atherosclerotic heart disease of [place] coronary artery without angina pectoris (414.01 | [...] fat diet, aspirin, MARCUS inhibitors and statins. [facility] On 08-Nov-2012 10:08 to 11:01 Office Visit - Fluzone High Dose MEDICARE VACCINE AGAINST INFLUENZA (V04.81), Type II diabetes mellitus (250.00), Hypertension, benign (401.1), Peripheral vascular disease (Renamed from Peripheral blood vessel disorder) (443.9 | I73.9) , Kidney disease, chronic, stage III (GFR 30-59 ml/min) (585.3), Atherosclerotic heart disease of [place] coronary artery without angina pectoris (414.01 | [...] fat diet, aspirin, MARCUS inhibitors and statins. [facility] 10-May-2012 to 12-May-2012 Office Visit [...] fat diet, aspirin, MARCUS inhibitors and statins. [facility] 15-Oct-2011 to 18-Oct-2011 Historical Summary [facility] On 14-Oct-2011 15:43 to 16:07 [...] of oral contraceptives, visual disturbances or weakness. [facility] On 11-Jun-2011 11:27 to 12:04 Historical Summary [facility] On 11-Jun-2011 08:17 to 08:20 [...] of oral contraceptives, visual disturbances or weakness. [facility] to Lab entry only - Diabetes mellitus (250.00) [facility] On 24-Oct-2010 10:43 to 10:45 [...] good tolerance of treatment and good symptom control.[facility] 28-Aug-2010 to 29-Aug-2010 Office Visit [...] myocardial infarction and sudden (Dad suddenly of [place] at the age of 72.). Pertinent social [...] last visit. Onset was 15 year(s) ago. [facility] 24-Apr-2010 to 30-Apr-2010 Lab entry only - Diabetes mellitus type 1 (250.01), Hypertension, benign ( 401.1), Hypercholesterolemia (272.0) [facility] On 22-Apr-2010 12:43 to 14:00 Lab entry only - Diabetes mellitus type 1 (250.01) [facility] On 22-Apr-2010 12:09 to 12:13 Historical Summary - Pre-operative examination (V72.84), Coronary atherosclerosis (414.00) [facility] On 22-Apr-2010 11:35 to 12:09 Insurance * Chi Lowry ; a guarantor * Medicare WPS * BS Plan 65
--- OUTSIDE RECORDS SUMMARY | 2017-04-29 00:36 | XMS REPORT | Continuity of Care Document ---
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, I25.10) [...] 90 {Tablet} Ordered:26-Nov-2014 Aakash Hernández MD* Start 22-Nov-2014 Active Comments: faxed to [facility] LANTUS SOLOSTAR, 100UNIT/ML (Subcutaneous Solution Pen-injector) 5 units units at bedtime for 90 days * Quantity: 450 {Milliliter} Refills: 4 Ordered:26-Nov-2014 Aakash Hernández MD* Start 22-Nov-2014 Active Comments: rx faxed to [facility] LISINOPRIL, 5MG (Oral Tablet) 1 (one) Tablet Tablet daily for 90 days * Quantity: 90 {Tablet} Refills: 4 Ordered:26-Nov-2014 Aakash Hernández MD* Start 26-Nov-2014 Active Comments[facility] METFORMIN HCL, 500MG (Oral [...] Dates Details Follow up in 6 weeks Ordered:26-Nov-2014 How to access health information online Completed:26-Nov-2014 Follow up in 6 months Ordered:15-May-2014 ADMINISTRATION OF PNEUMOCOCCAL CONJUGATE VACCINE (G0009) Ordered:15-May-2014 PREVNAR 13 VALENT PNEUMOCOCCAL VACCINE ([id number]) Completed:07-Jun-2014 ADMINISTRATION OF INFLUENZA VACCINE (G0008) Ordered:15-May-2014 HIGH DOSE QUADRIVALENT INFLUENZA VACCINE ([id number]) Completed:07-Jun-2014 Follow up in 4 months Ordered: Follow up in 4 months Ordered:03-Aug-2013 ADMIN INFLUENZA VIRUS VAC: FLU VACC PRSV FREE INC ANTIG ([id number]) Completed: Comments: CAC order ADMINISTRATION OF INFLUENZA VIRUS VACCINE (G0008) Ordered:03-May-2013 Comments: CAC order Follow up in 4 months Ordered:16-Mar-2013 CAROTID BILATERAL US ([id number]) Ordered:09-Nov-2012 Follow up in 4 months Ordered:08-Nov-2012 ADMIN INFLUENZA VIRUS VAC: FLU VACC PRSV FREE INC ANTIG ([id number]) Ordered: ADMINISTRATION OF INFLUENZA VIRUS VACCINE (G0008) Ordered:10-May-2012 CAROTID BILATERAL US ([id number]) Ordered:15-Oct-2011 ADMINISTRATION OF INFLUENZA VIRUS VACCINE (G0008) Ordered:11-Jun-2011 FLU VACC PRSV FREE INC ANTIG (05751) Completed:15-Jun-2011 Chronic Kidney Failure *: chronic renal insufficiency Ordered:11-Jun-2011 Follow up in 4 months Ordered: Follow up in 4 months Ordered:28-Aug-2010 EXTREMITY STUDY (78363) Ordered:28-Aug-[address] SCAN OF LUMBAR SPINE ([id number]) Ordered:28-Aug-2010 ADMINISTRATION OF INFLUENZA VIRUS VACCINE (G0008) Completed:30-May-2010 FLU VACCINE, 3 YRS & >, IM ([id number]) Completed:24-Apr-2010 Catheterization, Left Heart-Skin Completed:02-Dec-2004 EKG Completed:13-Nov-2014 EKG Completed:22-Apr-2010 Flu Vaccine Completed:10-May-2012 Flu Vaccine Completed:15-May-2014 Pneumovax Completed:01-May-2008 Prevnar 13 Completed:15-May-2014 PSA Completed:03-Aug-2013 Comments: (3.93) PSA Completed: Comments: (3.58) Immunization Name Dates Details Fluzone Lot #: [id number] Administered on:11-Jun-2011 Comments: Site: Deltoid (Left) Influenza (3 years and up) Lot #: [id number] Administered on:24-Apr-2010 Comments: Site: Deltoid (Left) Influenza, preserv. free, enhanced immunogncty, IM Lot #: [id number] Administered on:03-May-2013 Comments: Site: Deltoid (Left) Influenza, preserv. free, enhanced immunogncty, IM Lot #: [id number] Administered on:15-May-2014 Comments: Site: Deltoid (Right) Pneumococcal (2 years and up) Administered on:01-May-2008 Pneumococcal conjugate vaccine, 13 valent, IM Lot #: [id number] Administered on:15-May-2014 Comments: Site: Deltoid (Left) Family History Name Dates Details Brother 1 Comments: healthy Status: Active Brother 2 Comments: borderline diabetes Status: Active Father Comments: 72 yo of [place] Status: Active Mother Comments: at 67 of [...] Description Value Details 22-Apr-2010 11:37 ELECTROCARDIOGRAM, COMPLETE (89301) [EKG] [place] Interval: 1 mm Pending 26-Nov-2014 15:59 BMP [...] (Normal) 28-Feb-2014 09:48 TSH (THYROID STIMULATING HORMONE) (65881) Comments: Items in this order include: Draw [...] ng/mL (Normal) Range: 0.00-4.00 11:15 Urine Microalbumin (24609) Comments: Items in this order include: Draw [...] kb. Draw Drawn (Normal) 16-Mar-2013 11:42 CK (56117) Comments: Items in this order include: Basic Metabolic Panel, Hemoglobin A1C, Draw Charge[i], ALT, CKILast Hgb A1C was ran 128 Days ago. Check by kb CKI 220 U/L (Normal) Range: 39-308 11:42 ALT (95634) Comments: Items in this order include: Basic [...] Draw Drawn (Normal) 11-Nov-2012 08:39 LIPID PANEL (68301) Comments: Items in this order include: Draw [...] include: Draw Charge[i], Basic Metabolic Panel, Hemoglobin E2GHadf Hgb A1C was ran 182 Days ago. Check by kb Range: 4.6-6.2 Comments: Consistent with diabetes. 11:08 BMP Comments: Items in this order include: Draw Charge[i], Basic Metabolic Panel, Hemoglobin X2AZppu Hgb A1C was ran 182 Days ago. [...] include: Draw Charge[i], Basic Metabolic Panel, Hemoglobin [id number] Hgb A1C was ran 182 Days ago. Check by kb Draw Drawn (Normal) 10-May-2012 11:35 TSH (THYROID STIMULATING HORMONE) (26581) Comments: Items in this order include: Draw Charge[i], Basic Metabolic Panel, Hemoglobin A1C, Urine Microalbumin, TSHLast Hgb A1C was ran 208 Days ago. Check by KB TSH 4.90 uIU/ml (Normal) Range: 0.34-5.60 11:35 Urine Microalbumin (87632) Comments: Items in this order include: Draw [...] (Normal) 11-Jun-2011 12:08 CBC-MALE- ORDER THIS ONE! (45357) Comments: Items in this order include: Hemoglobin [...] Comments: Consistent with diabetes. 16:22 Urine Microalbumin (84154) Comments: Items in this order include: Basic [...] (Normal) Range: 135-145 24-Oct-2010 10:57 CREATININE BLOOD (40282) Comments: Verbal order from Dr. Aakash Hernández; Verbal order from Dr. Aakash Hernández eGFR 52.0 mL/min/1.73m2 (Abnormal) Range: >60.0 CREAT 1.4 mg/dL (Abnormal) Range: 0.6-1.3 28-Aug-2010 12:07 TSH (THYROID STIMULATING HORMONE) (96692) TSH 5.29 uIU/ml (Normal) Range: 0.34-5.60 12:07 CBC-MALE- ORDER THIS ONE! (07085) manual diff Not Indicated (Normal) MCHC 35.4 [...] 8.82 10*3/uL (Normal) Range: 4.50-10.50 12:07 CK (12771) CK 199 U/L (Abnormal) Range: 26-190 12:07 ALT (42931) ALT 35 [iU]/L (Normal) Range: 30-65 12:07 [...] Range: 135-145 22-Apr-2010 12:46 BASIC METABOLIC PANEL- [facility] (74480) Comments: See paper results 12:45 CBC PLATELETS & AUTO /DIFF MALE (00046) Comments: See paper results 12:12 HEMOGLOBIN GLYCLATED (HGB A1C) (80543) Comments: See paper results Treatment Plan * VENIPUNCTURE; Ordered: 02/23/2014 * LIPID PANEL (89279); Ordered: 06/15/2011 Advance Directives Encounters Office Visit - Controlled diabetes mellitus (250.00 | E11.9), Kidney disease, chronic, stage III (moderate, EGFR 30-59 ml/min) (585.3 | N18.3), Atherosclerotic heart disease of [place] coronary artery without angina pectoris (414.01 | I25.10), Acquired hypothyroidism (244.9 | E03.9), Benign essential hypertension (401.1 | I10), Senile dementia, without behavioral disturbance ( 290.0 | F03.90) Encounter Reason: Transition into care - The patient is transitioning into care from a hospital (dismissed from [facility] on 11/17/2014.) and a summary of care was reviewed ., [ADDITIONAL REASON] Diabetes Type II, Follow Up - The last clinic visit was 9 day(s) ago (dismissed from [facility] on 11/17/2014.). Symptoms do not include [...] lipid testing was done on 2013 (at [place]) and the results included total cholesterol 167 [...] (V06.6 | Z23), Atherosclerotic heart disease of [place] coronary artery without angina pectoris (414.01 | [...] lipid testing was done on 12/08/2013 (at [place]) and the results included total cholesterol 167 [...] (401.1 | I10), Atherosclerotic heart disease of [place] coronary artery without angina pectoris (414.01 | [...] Hgb A1c was done on 2013 (at [place]) and the result was 8.3 %. Most recent microalbumin was done on 12/08 and the result was mcg/mg Creatinine (64). Most recent lipid testing was done on 12/08/2013 (at [place]) and the results included total cholesterol 167 [...] treatment includes dietary modification, thiazide diuretic and AMRCUS inhibitor. By report there is good compliance [...] Office Visit - Atherosclerotic heart disease of [place] coronary artery without angina pectoris (414.01 | [...] (585.3 | N18.3), Atherosclerotic heart disease of [place] coronary artery without angina pectoris (414.01 | [...] 30-59 ml/min) (585.3), Atherosclerotic heart disease of [place] coronary artery without angina pectoris (414.01 | [...] 30-59 ml/min) (585.3), Atherosclerotic heart disease of [place] coronary artery without angina pectoris (414.01 | [...] MARCUS inhibitors and statins. [facility] 15-Oct-2011 to 18-Oct-2011 [facility] [...] myocardial infarction and sudden (Dad suddenly of [place] at the age of 72.). Pertinent social [...]
--- OUTSIDE RECORDS SUMMARY | 2017-04-29 00:37 | XMS REPORT | Continuity of Care Document ---
Author Author [facility] Organization [facility] Address [address] [place] [address] Phone Care Team Providers Care Sheep Rancher Name Role Phone Aakash Hernández MD PP Aakash Hernández MD Unavailable Imelda Mena R.N. 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.01, I25.10) Status: [...] four times daily (100 UNIT/ML) Active Comments: MS=576-138 give 2 units; 200-249=4 units; 250-299=6 units;300-349=8 [...] Start 22-Nov-2014 End Inactive Comments: faxed to [place] GLIPIZIDE, 10MG (Oral Tablet) daily (10 MG) Inactive GLYBURIDE, 5MG (Oral Tablet) daily (5 MG) Inactive HYDROCHLOROTHIAZIDE, 25MG (Oral Tablet) daily (25 MG) Inactive LANTUS SOLOSTAR, 100UNIT/ML (Subcutaneous Solution Pen-injector) 5 units units at bedtime for 90 days * Quantity: 450 {Milliliter} Refills: 4 Ordered: Imelda Mena R.N.* Start 22-Nov-2014 End Inactive Comments: rx faxed to [place] LEVOTHYROXINE SODIUM, 75MCG (Oral Tablet) 1 (one) [...] Dates Details INFLUENZA QUADRIVALENT VAC: FLU VACC ([id number]) Completed:26-May-2016 Comments : Verbal order from Dr. [...] online Completed:26-Mar-2015 INFLUENZA QUADRIVALENT VAC: FLU VACC ([id number]) Completed:27-Mar-2015 ADMINISTRATION OF INFLUENZA VIRUS VACCINE (G0008) [...] (G0009) Ordered:15-May-2014 PREVNAR 13 VALENT PNEUMOCOCCAL VACCINE ([id number]) Completed:07-Jun-2014 ADMINISTRATION OF INFLUENZA VACCINE (G0008) Ordered:15-May-2014 HIGH DOSE QUADRIVALENT INFLUENZA VACCINE ([id number]) Completed:07-Jun-2014 Follow up in 4 months Ordered: Follow up in 4 months Ordered:03-Aug-2013 ADMIN INFLUENZA VIRUS VAC: FLU VACC PRSV FREE INC ANTIG ([id number]) Completed: Comments: CAC order ADMINISTRATION OF INFLUENZA VIRUS VACCINE (G0008) Ordered:03-May-2013 Comments: CAC order Follow up in 4 months Ordered:16-Mar-2013 CAROTID BILATERAL US ([id number]) Ordered:09-Nov-2012 Follow up in 4 months Ordered:08-Nov-2012 ADMIN INFLUENZA VIRUS VAC: FLU VACC PRSV FREE INC ANTIG ([id number]) Ordered: ADMINISTRATION OF INFLUENZA VIRUS VACCINE (G0008) Ordered:10-May-2012 CAROTID BILATERAL US ([id number]) Ordered:15-Oct-2011 ADMINISTRATION OF INFLUENZA VIRUS VACCINE (G0008) Ordered:11-Jun-2011 FLU VACC PRSV FREE INC ANTIG ([id number]) Completed:15-Jun-2011 Chronic Kidney Failure *: chronic renal insufficiency Ordered:11-Jun-2011 Follow up in 4 months Ordered: Follow up in 4 months Ordered:28-Aug-2010 EXTREMITY STUDY ([id number]) Ordered:28-Aug-[address] SCAN OF LUMBAR SPINE (52153) Ordered:28-Aug-2010 ADMINISTRATION OF INFLUENZA VIRUS VACCINE (G0008) Completed:30-May-2010 FLU VACCINE, 3 YRS & >, IM ([id number]) Completed:24-Apr-2010 Catheterization, Left Heart-Skin Completed:02-Dec-2004 EKG Completed:13-Nov-2014 EKG Completed:22-Apr-2010 EKG Completed:09-Dec-2015 Flu Vaccine Completed:06-May-2016 Flu Vaccine Completed:10-May-2012 Pneumovax Completed:01-May-2008 Prevnar 13 Completed:15-May-2014 PSA Completed: Comments: (3.58) PSA Completed:03-Aug-2013 Comments: (3.93) Immunization Name Dates Details Fluzone Lot #: [id number] Administered on:11-Jun-2011 Comments: Site: Deltoid (Left) Influenza (3 years and up) Lot #: [id number] Administered on:24-Apr-2010 Comments: Site: Deltoid (Left) Influenza, preserv. free, enhanced immunogncty, IM Lot #: [id number] Administered on:26-Mar-2015 Comments: Site: Deltoid (Left) Influenza, preserv. free, enhanced immunogncty, IM Lot #: [id number] Administered on:06-May-2016 Comments: Site: Deltoid (Left) Influenza, preserv. free, enhanced immunogncty, IM Lot #: [id number] Administered on:03-May-2013 Comments: Site: Deltoid (Left) Influenza, preserv. free, enhanced immunogncty, IM Lot #: [id number] Administered on:15-May-2014 Comments: Site: Deltoid (Right) Pneumococcal (2 years and up) Administered on:01-May-2008 Pneumococcal conjugate vaccine, 13 valent, IM Lot #: [id number] Administered on:15-May-2014 Comments: Site: Deltoid (Left) Family History Name Dates Details Brother 1 Comments: healthy Status: Active Brother 2 Comments: borderline diabetes Status: Active Father Comments: 72 yo of [place] Status: Active Mother Comments: at 67 of [...] Description Value Details 22-Apr-2010 11:37 ELECTROCARDIOGRAM, COMPLETE ([id number]) [EKG] [place] Interval: 1 mm Pending 03-Sep-2015 11:24 A1C 9.1 % (Abnormal) Range: 4.6-6.2 Comments: Consistent with diabetes. 11:24 CBC-MALE- ORDER THIS ONE! (37142) manual diff Not Indicated (Normal) mpv 10.60 [...] (Normal) Range: 4.50-10.50 11:24 Vitamin D, 25-Hydroxy (55218) Comments: [facility] at: [facility], [address] [place] [address], [id number], Airline Stewardess: Kike Sidhu D.O., MPHQuest VITAMIN D,25-OH,TOTAL,IA 24 ng/mL (Abnormal) Range: 30-100 Comments: Vitamin D Status 25-OH Vitamin D: Deficiency: <20 ng/mLInsufficiency: 20 - 29 ng/mLOptimal: > or=30 ng/mL For 25-OH Vitamin D testing on patients on D2-supplementation and patients for whom quantitation of D2 and D3 fractions is required, the QuestAssureD(TM)25-OH VIT D, (D2,D3), LC/MS/MS is recommended: order code 45340 (patients >2yrs). For more information on this test, go to:http:// education.[email or web address]/XAH033(This link is being provided for informational/educational purposes only.) 11:24 PTH Intact (79398) Comments: Items in this order include: Draw Charge[i], Basic Metabolic Panel, PTH, Vitamin D, 25-Hydroxy, CBC, Hemoglobin [id number] performed at: [facility], [address] [place] [address] , [id number], Airline Stewardess: Kike Sidhu D.O., MPHQuest PARATHYROID HORMONE, INTACT [...] (Normal) 28-Feb-2014 09:48 TSH (THYROID STIMULATING HORMONE) ([id number]) Comments: Items in this order include: Draw [...] ng/mL (Normal) Range: 0.00-4.00 11:15 Urine Microalbumin (56802) Comments: Items in this order include: Draw [...] kb. Draw Drawn (Normal) 16-Mar-2013 11:42 CK ([id number]) Comments: Items in this order include: Basic Metabolic Panel, Hemoglobin A1C, Draw Charge[i], ALT, CKILast Hgb A1C was ran 128 Days ago. Check by kb CKI 220 U/L (Normal) Range: 39-308 11:42 ALT (59791) Comments: Items in this order include: Basic [...] Draw Drawn (Normal) 11-Nov-2012 08:39 LIPID PANEL (10081) Comments: Items in this order include: Draw [...] include: Draw Charge[i], Basic Metabolic Panel, Hemoglobin [id number] Hgb A1C was ran 182 Days ago. Check by kb Range: 4.6-6.2 Comments: Consistent with diabetes. 11:08 BMP Comments: Items in this order include: Draw Charge[i], Basic Metabolic Panel, Hemoglobin C5DEikh Hgb A1C was ran 182 Days ago. [...] include: Draw Charge[i], Basic Metabolic Panel, Hemoglobin [id number] Hgb A1C was ran 182 Days ago. Check by kb Draw Drawn (Normal) 10-May-2012 11:35 TSH (THYROID STIMULATING HORMONE) ([id number]) Comments: Items in this order include: Draw Charge[i], Basic Metabolic Panel, Hemoglobin A1C, Urine Microalbumin, TSHLast Hgb A1C was ran 208 Days ago. Check by KB TSH 4.90 uIU/ml (Normal) Range: 0.34-5.60 11:35 Urine Microalbumin (14438) Comments: Items in this order include: Draw [...] (Normal) 11-Jun-2011 12:08 CBC-MALE- ORDER THIS ONE! (99123) Comments: Items in this order include: Hemoglobin [...] Comments: Consistent with diabetes. 16:22 Urine Microalbumin (04890) Comments: Items in this order include: Basic [...] (Normal) Range: 135-145 24-Oct-2010 10:57 CREATININE BLOOD ([id number]) Comments: Verbal order from Dr. Aakash Hernández; Verbal order from Dr. Aakash Hernández eGFR 52.0 mL/min/1.73m2 (Abnormal) Range: >60.0 CREAT 1.4 mg/dL (Abnormal) Range: 0.6-1.3 28-Aug-2010 12:07 TSH (THYROID STIMULATING HORMONE) (98293) TSH 5.29 uIU/ml (Normal) Range: 0.34-5.60 12:07 CBC-MALE- ORDER THIS ONE! (82088) manual diff Not Indicated (Normal) MCHC 35.4 [...] 8.82 10*3/uL (Normal) Range: 4.50-10.50 12:07 CK (20471) CK 199 U/L (Abnormal) Range: 26-190 12:07 ALT (26879) ALT 35 [iU]/L (Normal) Range: 30-65 12:07 [...] 135-145 22-Apr-2010 12:46 BASIC METABOLIC PANEL- [facility] (53364) Comments: See paper results 12:45 CBC PLATELETS & AUTO /DIFF MALE ([id number]) Comments: See paper results 12:12 HEMOGLOBIN GLYCLATED (HGB A1C) (99951) Comments: See paper results Treatment Plan * VENIPUNCTURE; Ordered: 02/23/2014 * LIPID PANEL (67091); Ordered: 06/15/2011 Advance Directives Encounters Nurse Visit (Non-billable) - Need for prophylactic vaccination and inoculation against influenza (V04.81 | Z23) [facility] On 26-May-2016 14:59 to 15:03 Medication Entry [facility] On 18-Mar-2016 09:54 to 10:08 Historical Summary [facility] On 15:18 to 15:30 Office Visit - Kidney disease, chronic, stage III (moderate, EGFR 30-59 ml/min ) (585.3 | N18.3), Controlled diabetes mellitus (250.00 | E11.9), Benign essential hypertension (401.1 | I10), 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 [facility] On 20-Nov-2015 10:41 to 11:12 Medication Entry [facility] On 27-Sep-2015 12:29 to 12:35 Office Visit - Controlled diabetes mellitus (250.00 | E11.9), Kidney disease, chronic, stage III (moderate, EGFR 30-59 ml/min) (585.3 | N18.3), Benign essential hypertension (401.1 | I10), Atherosclerosis of [place] coronary artery of [place] heart without angina pectoris (414.01 | I25.10), [...] recent microalbumin result was mcg/mg Creatinine (64). [facility] On 03-Sep-2015 09:02 to 11:20 [...] recent microalbumin result was mcg/mg Creatinine (64). [facility] On 23-Jul-2015 14:42 to 16:12 [...] was done on 12/11/2014 (done at the [facility]) and the result was 8.4 %. [...] tolerance of treatment and fair symptom control. [facility] On 07-May-2015 11:15 to 12:01 Office Visit - Fluzone High Dose MEDICARE VACCINE AGAINST INFLUENZA (V04.81), Controlled diabetes mellitus (250.00 | E11.9), Kidney disease, chronic, stage III (moderate, EGFR 30-59 ml/min) (585.3 | N18.3), Benign essential hypertension (401.1 | I10), Atherosclerosis of [place] coronary artery of [place] heart without angina pectoris (414.01 | I25.10) [...] was done on 12/11/2014 (done at the [facility]) and the result was 8.4 %. [...] tolerance of treatment and fair symptom control. [facility] On 26-Mar-2015 08:43 to 11:48 Office Visit - Controlled diabetes mellitus (250.00 | E11.9), Atherosclerosis of [place] coronary artery of [place] heart without angina pectoris (414.01 | I25.10), [...] tolerance of treatment and fair symptom control. [facility] On 13:35 to 16:41 Office [...] tolerance of treatment and fair symptom control. [facility] On 13:23 to 16:54 Office Visit - Controlled diabetes mellitus (250.00 | E11.9), Kidney disease, chronic, stage III (moderate, EGFR 30-59 ml/min) (585.3 | N18.3), Atherosclerotic heart disease of [place] coronary artery without angina pectoris (414.01 | I25.10), Acquired hypothyroidism (244.9 | E03.9), Benign essential hypertension (401.1 | I10), Senile dementia, without behavioral disturbance ( 290.0 | F03.90) Encounter Reason: Transition into care - The patient is transitioning into care from a hospital (dismissed from [facility] on 11/17/2014.) and a summary of care was reviewed ., [ADDITIONAL REASON] Diabetes Type II, Follow Up - The last clinic visit was 9 day(s) ago (dismissed from [facility] on 11/17/2014.). Symptoms do not [...] tolerance of treatment and fair symptom control. [facility] On 26-Nov-2014 13:52 to 16:06 Historical Summary [facility] On 23-Nov-2014 10:32 to 10:37 Medication Entry - Controlled diabetes mellitus (250.00 | E11.9) [facility] On 22-Nov-2014 14:11 to 14:17 Medication Entry [facility] On 07-Jun-2014 15:01 to 15:07 Office Visit - COMBO MEDICARE HIGH DOSE INFLUENZA AND PREVNAR PNEUMOVAX ( Renamed from Need for prophylactic vaccination against Streptococcus pneumoniae (pneumococcus) and influenza) (V06.6 | Z23), Atherosclerotic heart disease of [place] coronary artery without angina pectoris (414.01 | [...] fat diet, aspirin, MARCUS inhibitors and statins. [facility] On 15-May-2014 14:23 to 16:08 Medication Entry [facility] On 12:04 to 12:12 Office Visit - Controlled diabetes mellitus (250.00 | E11.9), Benign essential hypertension (401.1 | I10), Atherosclerotic heart disease of [place] coronary artery without angina pectoris (414.01 | [...] fat diet, aspirin, MARCUS inhibitors and statins. [facility] On 11:49 to 16:18 Historical Summary [facility] On 10:50 to 10:53 Office Visit - Atherosclerotic heart disease of [place] coronary artery without angina pectoris (414.01 | [...] fat diet, aspirin, MARCUS inhibitors and statins. [facility] On 03-Aug-2013 08:48 to 11:10 Historical Summary [facility] On 02-Aug-2013 10:28 to 10:30 Nurse Visit - Need for prophylactic vaccination and inoculation against influenza (V04.81) [facility] On 03-May-2013 12:59 to 13:01 Office Visit - Controlled diabetes mellitus (250.00 | E11.9), Kidney disease, chronic, stage III (moderate, EGFR 30-59 ml/min) (585.3 | N18.3), Atherosclerotic heart disease of [place] coronary artery without angina pectoris (414.01 | [...] fat diet, aspirin, MARCUS inhibitors and statins. [facility] On 16-Mar-2013 10:17 to 11:40 Office Visit - Benign essential hypertension (401.1 | I10), Kidney disease, chronic, stage III (GFR 30-59 ml/min) (585.3), Atherosclerotic heart disease of [place] coronary artery without angina pectoris (414.01 | [...] fat diet, aspirin, MARCUS inhibitors and statins. [facility] On 08-Nov-2012 10:08 to 11:01 Office Visit - Fluzone High Dose MEDICARE VACCINE AGAINST INFLUENZA (V04.81), Type II diabetes mellitus (250.00), Hypertension, benign (401.1), Peripheral vascular disease (Renamed from Peripheral blood vessel disorder) (443.9 | I73.9) , Kidney disease, chronic, stage III (GFR 30-59 ml/min) (585.3), Atherosclerotic heart disease of [place] coronary artery without angina pectoris (414.01 | [...] fat diet, aspirin, MARCUS inhibitors and statins. [facility] 10-May-2012 to 12-May-2012 Office Visit [...] fat diet, aspirin, MARCUS inhibitors and statins. [facility] 15-Oct-2011 to 18-Oct-2011 Historical Summary [facility] On 14-Oct-2011 15:43 to 16:07 [...] of oral contraceptives, visual disturbances or weakness. [facility] On 11-Jun-2011 11:27 to 12:04 Historical Summary [facility] On 11-Jun-2011 08:17 to 08:20 [...] of oral contraceptives, visual disturbances or weakness. [facility] to Lab entry only - Diabetes mellitus (250.00) [facility] On 24-Oct-2010 10:43 to 10:45 [...] good tolerance of treatment and good symptom control.[facility] 28-Aug-2010 to 29-Aug-2010 Office Visit [...] myocardial infarction and sudden (Dad suddenly of [place] at the age of 72.). Pertinent social [...] last visit. Onset was 15 year(s) ago. [facility] 24-Apr-2010 to 30-Apr-2010 Lab entry only - Diabetes mellitus type 1 (250.01), Hypertension, benign ( 401.1), Hypercholesterolemia (272.0) [facility] On 22-Apr-2010 12:43 to 14:00 [...]
--- OUTSIDE RECORDS SUMMARY | 2017-04-29 00:38 | XMS REPORT | Continuity of Care Document ---
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, I25.10) [...] MD* Start 22-Nov-2014 Active Comments: faxed to [facility] LANTUS SOLOSTAR, 100UNIT/ML (Subcutaneous Solution Pen-injector) 5 units at bedtime for 90 days * Quantity: 450 {Milliliter} Refills: 4 Ordered:22-Nov-2014 Aakash Hernández MD* Start 22-Nov-2014 Active Comments: rx faxed to [facility] LEVOTHYROXINE SODIUM, 75MCG (Oral Tablet) 1 (one) Tablet Tablet daily for 30 days * Quantity: 30 {Tablet} Refills: 12 Ordered:15-May-2014 Aakash Hernández MD* Start Active LISINOPRIL, 5MG (Oral Tablet) 1 (one) Tablet daily for 90 days * Quantity: 90 {Tablet} Refills: 4 Ordered:22-Nov-2014 Aakash Hernández MD* Start 22-Nov-2014 Active Comments: faxed to [facility] METFORMIN HCL, 500MG (Oral Tablet) - Historical [...] - Historical Medication daily (25 MG) Inactive LISINOPRIL, 20MG (Oral Tablet) - [...] (G0009) Ordered:15-May-2014 PREVNAR 13 VALENT PNEUMOCOCCAL VACCINE ([id number]) Completed:07-Jun-2014 ADMINISTRATION OF INFLUENZA VACCINE (G0008) Ordered:15-May-2014 HIGH DOSE QUADRIVALENT INFLUENZA VACCINE (04712) Completed:07-Jun-2014 Follow up in 4 months Ordered: Follow up in 4 months Ordered:03-Aug-2013 ADMIN INFLUENZA VIRUS VAC: FLU VACC PRSV FREE INC ANTIG ([id number]) Completed: Comments: CAC order ADMINISTRATION OF INFLUENZA VIRUS VACCINE (G0008) Ordered:03-May-2013 Comments: CAC order Follow up in 4 months Ordered:16-Mar-2013 CAROTID BILATERAL US ([id number]) Ordered:09-Nov-2012 Follow up in 4 months Ordered:08-Nov-2012 ADMIN INFLUENZA VIRUS VAC: FLU VACC PRSV FREE INC ANTIG ([id number]) Ordered: ADMINISTRATION OF INFLUENZA VIRUS VACCINE (G0008) Ordered:10-May-2012 CAROTID BILATERAL US ([id number]) Ordered:15-Oct-2011 ADMINISTRATION OF INFLUENZA VIRUS VACCINE (G0008) Ordered:11-Jun-2011 FLU VACC PRSV FREE INC ANTIG ([id number]) Completed:15-Jun-2011 Chronic Kidney Failure *: chronic renal insufficiency Ordered:11-Jun-2011 Follow up in 4 months Ordered: Follow up in 4 months Ordered:28-Aug-2010 EXTREMITY STUDY ([id number]) Ordered:28-Aug-[address] SCAN OF LUMBAR SPINE ([id number]) Ordered:28-Aug-2010 ADMINISTRATION OF INFLUENZA VIRUS VACCINE (G0008) Completed:30-May-2010 FLU VACCINE, 3 YRS & >, IM ([id number]) Completed:24-Apr-2010 Catheterization, Left Heart-Skin Completed:02-Dec-2004 EKG Completed:13-Nov-2014 EKG Completed:22-Apr-2010 Flu Vaccine Completed:10-May-2012 Flu Vaccine Completed:15-May-2014 Pneumovax Completed:01-May-2008 Prevnar 13 Completed:15-May-2014 PSA Completed:03-Aug-2013 Comments: (3.93) PSA Completed: Comments: (3.58) Immunization Name Dates Details Fluzone Lot #: [id number] Administered on:11-Jun-2011 Comments: Site: Deltoid (Left) Influenza (3 years and up) Lot #: [id number] Administered on:24-Apr-2010 Comments: Site: Deltoid (Left) Influenza, preserv. free, enhanced immunogncty, IM Lot #: [id number] Administered on:03-May-2013 Comments: Site: Deltoid (Left) Influenza, preserv. free, enhanced immunogncty, IM Lot #: [id number] Administered on:15-May-2014 Comments: Site: Deltoid (Right) Pneumococcal (2 years and up) Administered on:01-May-2008 Pneumococcal conjugate vaccine, 13 valent, IM Lot #: [id number] Administered on:15-May-2014 Comments: Site: Deltoid (Left) Family History Name Dates Details Brother 1 Comments: healthy Status: Active Brother 2 Comments: borderline diabetes Status: Active Father Comments: 72 yo of [place] Status: Active Mother Comments: at 67 of [...] Description Value Details 22-Apr-2010 11:37 ELECTROCARDIOGRAM, COMPLETE (02386) [EKG] [place] Interval: 1 mm Pending 28-Feb-2014 09:48 TSH (THYROID STIMULATING HORMONE) (17260) Comments: Items in this order include: Draw [...] ng/mL (Normal) Range: 0.00-4.00 11:15 Urine Microalbumin (76327) Comments: Items in this order include: Draw [...] kb. Draw Drawn (Normal) 16-Mar-2013 11:42 CK ([id number]) Comments: Items in this order include: Basic Metabolic Panel, Hemoglobin A1C, Draw Charge[i], ALT, CKILast Hgb A1C was ran 128 Days ago. Check by landon CKI 220 U/L (Normal) Range: 39-308 11:42 ALT ([id number]) Comments: Items in this order include: Basic [...] Draw Drawn (Normal) 11-Nov-2012 08:39 LIPID PANEL ([id number]) Comments: Items in this order include: Draw [...] include: Draw Charge[i], Basic Metabolic Panel, Hemoglobin [id number] Hgb A1C was ran 182 Days ago. Check by kb Range: 4.6-6.2 Comments: Consistent with diabetes. 11:08 BMP Comments: Items in this order include: Draw Charge[i], Basic Metabolic Panel, Hemoglobin [id number] Hgb A1C was ran 182 Days ago. [...] include: Draw Charge[i], Basic Metabolic Panel, Hemoglobin [id number] Hgb A1C was ran 182 Days ago. Check by kb Draw Drawn (Normal) 10-May-2012 11:35 TSH (THYROID STIMULATING HORMONE) ([id number]) Comments: Items in this order include: Draw Charge[i], Basic Metabolic Panel, Hemoglobin A1C, Urine Microalbumin, TSHLast Hgb A1C was ran 208 Days ago. Check by KB TSH 4.90 uIU/ml (Normal) Range: 0.34-5.60 11:35 Urine Microalbumin (29336) Comments: Items in this order include: Draw [...] (Normal) 11-Jun-2011 12:08 CBC-MALE- ORDER THIS ONE! ([id number]) Comments: Items in this order include: Hemoglobin [...] Comments: Consistent with diabetes. 16:22 Urine Microalbumin (71669) Comments: Items in this order include: Basic [...] (Normal) Range: 135-145 24-Oct-2010 10:57 CREATININE BLOOD (99738) Comments: Verbal order from Dr. Aakash Hernández; Verbal order from Dr. Aakash Hernández eGFR 52.0 mL/min/1.73m2 (Abnormal) Range: >60.0 CREAT 1.4 mg/dL (Abnormal) Range: 0.6-1.3 28-Aug-2010 12:07 TSH (THYROID STIMULATING HORMONE) ([id number]) TSH 5.29 uIU/ml (Normal) Range: 0.34-5.60 12:07 CBC-MALE- ORDER THIS ONE! (04874) manual diff Not Indicated (Normal) MCHC 35.4 [...] 8.82 10*3/uL (Normal) Range: 4.50-10.50 12:07 CK (23371) CK 199 U/L (Abnormal) Range: 26-190 12:07 ALT (03972) ALT 35 [iU]/L (Normal) Range: 30-65 12:07 [...] Range: 135-145 22-Apr-2010 12:46 BASIC METABOLIC PANEL- [facility] [place] ([id number]) Comments: See paper results 12:45 CBC PLATELETS & AUTO /DIFF MALE ([id number]) Comments: See paper results 12:12 HEMOGLOBIN GLYCLATED (HGB A1C) (06074) Comments: See paper results Treatment Plan * VENIPUNCTURE; Ordered: 02/23/2014 * LIPID PANEL (00458); Ordered: 06/15/2011 Advance Directives Encounters Review Encounter Reason: Transition into care - The patient is transitioning into care from a hospital (dismissed from [facility] on 11/17/2014.) and a summary of care was reviewed ., [ADDITIONAL REASON] Diabetes Type II, Follow Up - The last clinic visit was 9 day(s) ago (dismissed from [facility] on 11/17/2014.). Symptoms do not include polydipsia, [...] lipid testing was done on 12/08/2013 (at [place]) and the results included total cholesterol 167 mg/dl, HDL 44 mg/dl and TG 309 mg/dl. [facility] On 26-Nov-2014 13:52 Historical Summary [facility] On 23-Nov-2014 [...] (V06.6 | Z23), Atherosclerotic heart disease of [place] coronary artery without angina pectoris (414.01 | [...] lipid testing was done on 12/08/2013 (at [place]) and the results included total cholesterol 167 [...] (401.1 | I10), Atherosclerotic heart disease of [place] coronary artery without angina pectoris (414.01 | [...] Hgb A1c was done on 2013 (at [place]) and the result was 8.3 %. Most recent microalbumin was done on 12/08 and the result was mcg/mg Creatinine (64). Most recent lipid testing was done on 12/08/2013 (at [place]) and the results included total cholesterol 167 [...] Office Visit - Atherosclerotic heart disease of [place] coronary artery without angina pectoris (414.01 | [...] (585.3 | N18.3), Atherosclerotic heart disease of [place] coronary artery without angina pectoris (414.01 | [...] 30-59 ml/min) (585.3), Atherosclerotic heart disease of [place] coronary artery without angina pectoris (414.01 | [...] 30-59 ml/min) (585.3), Atherosclerotic heart disease of [place] coronary artery without angina pectoris (414.01 | [...] myocardial infarction and sudden (Dad suddenly of [place] at the age of 72.). Pertinent social [...] only - Diabetes mellitus type 1 (250.01) [facility] On 22-Apr-2010 12:09 to 12:13 Historical Summary - Pre-operative examination (V72.84), Coronary atherosclerosis (414.00) [facility] On 22-Apr-2010 11:35 to 12:09 Insurance * Chi Lowry ; a guarantor * Medicare WPS * BS Plan 65
--- OUTSIDE RECORDS SUMMARY | 2017-04-29 00:40 | XMS REPORT | Continuity of Care Document ---
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, I25.10) [...] to [facility] GLYBURIDE, 5MG (Oral Tablet) - Historical Medication [...] MG) Inactive Comments: faxed to [facility] Novalog Insulin 70/30 - Historical Medication 20 [...] (G0009) Ordered:15-May-2014 PREVNAR 13 VALENT PNEUMOCOCCAL VACCINE ([id number]) Completed:07-Jun-2014 ADMINISTRATION OF INFLUENZA VACCINE (G0008) Ordered:15-May-2014 HIGH DOSE QUADRIVALENT INFLUENZA VACCINE (28036) Completed:07-Jun-2014 Follow up in 4 months Ordered: Follow up in 4 months Ordered:03-Aug-2013 ADMIN INFLUENZA VIRUS VAC: FLU VACC PRSV FREE INC ANTIG ([id number]) Completed: Comments: CAC order ADMINISTRATION OF INFLUENZA VIRUS VACCINE (G0008) Ordered:03-May-2013 Comments: CAC order Follow up in 4 months Ordered:16-Mar-2013 CAROTID BILATERAL US ([id number]) Ordered:09-Nov-2012 Follow up in 4 months Ordered:08-Nov-2012 ADMIN INFLUENZA VIRUS VAC: FLU VACC PRSV FREE INC ANTIG ([id number]) Ordered: ADMINISTRATION OF INFLUENZA VIRUS VACCINE (G0008) Ordered:10-May-2012 CAROTID BILATERAL US ([id number]) Ordered:15-Oct-2011 ADMINISTRATION OF INFLUENZA VIRUS VACCINE (G0008) Ordered:11-Jun-2011 FLU VACC PRSV FREE INC ANTIG ([id number]) Completed:15-Jun-2011 Chronic Kidney Failure *: chronic renal insufficiency Ordered:11-Jun-2011 Follow up in 4 months Ordered: Follow up in 4 months Ordered:28-Aug-2010 EXTREMITY STUDY ([id number]) Ordered:28-Aug-[address] SCAN OF LUMBAR SPINE (05098) Ordered:28-Aug-2010 ADMINISTRATION OF INFLUENZA VIRUS VACCINE (G0008) Completed:30-May-2010 FLU VACCINE, 3 YRS & >, IM ([id number]) Completed:24-Apr-2010 Catheterization, Left Heart-Skin Completed:02-Dec-2004 EKG Completed:22-Apr-2010 EKG Completed:13-Nov-2014 Flu Vaccine Completed:10-May-2012 Flu Vaccine Completed:15-May-2014 Pneumovax Completed:01-May-2008 Prevnar 13 Completed:15-May-2014 PSA Completed: Comments: (3.58) PSA Completed:03-Aug-2013 Comments: (3.93) Immunization Name Dates Details Fluzone Lot #: [id number] Administered on:11-Jun-2011 Comments: Site: Deltoid (Left) Influenza (3 years and up) Lot #: [id number] Administered on:24-Apr-2010 Comments: Site: Deltoid (Left) Influenza, preserv. free, enhanced immunogncty, IM Lot #: [id number] Administered on:03-May-2013 Comments: Site: Deltoid (Left) Influenza, preserv. free, enhanced immunogncty, IM Lot #: [id number] Administered on:15-May-2014 Comments: Site: Deltoid (Right) Pneumococcal (2 years and up) Administered on:01-May-2008 Pneumococcal conjugate vaccine, 13 valent, IM Lot #: [id number] Administered on:15-May-2014 Comments: Site: Deltoid (Left) Family History Name Dates Details Brother 1 Comments: healthy Status: Active Brother 2 Comments: borderline diabetes Status: Active Father Comments: 72 yo of [place] Status: Active Mother Comments: at 67 of [...] Description Value Details 22-Apr-2010 11:37 ELECTROCARDIOGRAM, COMPLETE ([id number]) [EKG] [place] Interval: 1 mm Pending 26-Nov-2014 15:59 BMP [...] (Normal) 28-Feb-2014 09:48 TSH (THYROID STIMULATING HORMONE) ([id number]) Comments: Items in this order include: Draw [...] ng/mL (Normal) Range: 0.00-4.00 11:15 Urine Microalbumin (47398) Comments: Items in this order include: Draw [...] kb. Draw Drawn (Normal) 16-Mar-2013 11:42 CK ([id number]) Comments: Items in this order include: Basic Metabolic Panel, Hemoglobin A1C, Draw Charge[i], ALT, CKILast Hgb A1C was ran 128 Days ago. Check by landon CKI 220 U/L (Normal) Range: 39-308 11:42 ALT (68992) Comments: Items in this order include: Basic [...] Draw Drawn (Normal) 11-Nov-2012 08:39 LIPID PANEL ([id number]) Comments: Items in this order include: Draw [...] include: Draw Charge[i], Basic Metabolic Panel, Hemoglobin [id number] Hgb A1C was ran 182 Days ago. Check by kb Range: 4.6-6.2 Comments: Consistent with diabetes. 11:08 BMP Comments: Items in this order include: Draw Charge[i], Basic Metabolic Panel, Hemoglobin [id number] Hgb A1C was ran 182 Days ago. [...] include: Draw Charge[i], Basic Metabolic Panel, Hemoglobin [id number] Hgb A1C was ran 182 Days ago. Check by kb Draw Drawn (Normal) 10-May-2012 11:35 TSH (THYROID STIMULATING HORMONE) ([id number]) Comments: Items in this order include: Draw Charge[i], Basic Metabolic Panel, Hemoglobin A1C, Urine Microalbumin, TSHLast Hgb A1C was ran 208 Days ago. Check by KB TSH 4.90 uIU/ml (Normal) Range: 0.34-5.60 11:35 Urine Microalbumin (11095) Comments: Items in this order include: Draw [...] (Normal) 11-Jun-2011 12:08 CBC-MALE- ORDER THIS ONE! (30775) Comments: Items in this order include: Hemoglobin [...] Comments: Consistent with diabetes. 16:22 Urine Microalbumin (46653) Comments: Items in this order include: Basic [...] (Normal) Range: 135-145 24-Oct-2010 10:57 CREATININE BLOOD (55944) Comments: Verbal order from Dr. Aakash Hernández; Verbal order from Dr. Aakash Hernández eGFR 52.0 mL/min/1.73m2 (Abnormal) Range: >60.0 CREAT 1.4 mg/dL (Abnormal) Range: 0.6-1.3 28-Aug-2010 12:07 TSH (THYROID STIMULATING HORMONE) (53896) TSH 5.29 uIU/ml (Normal) Range: 0.34-5.60 12:07 CBC-MALE- ORDER THIS ONE! (99528) manual diff Not Indicated (Normal) MCHC 35.4 [...] 8.82 10*3/uL (Normal) Range: 4.50-10.50 12:07 CK (27385) CK 199 U/L (Abnormal) Range: 26-190 12:07 ALT (49014) ALT 35 [iU]/L (Normal) Range: 30-65 12:07 [...] PANEL- [facility] [place] (91629) Comments: See paper results 12:45 CBC PLATELETS & AUTO /DIFF MALE (87290) Comments: See paper results 12:12 HEMOGLOBIN GLYCLATED (HGB A1C) (17466) Comments: See paper results Treatment Plan * VENIPUNCTURE; Ordered: 02/23/2014 * LIPID PANEL (65188); Ordered: 06/15/2011 Advance Directives Encounters Review - [...] tolerance of treatment and fair symptom control. [facility] On 13:23 Office Visit - Controlled diabetes mellitus (250.00 | E11.9), Kidney disease, chronic, stage III (moderate, EGFR 30-59 ml/min) (585.3 | N18.3), Atherosclerotic heart disease of [place] coronary artery without angina pectoris (414.01 | I25.10), Acquired hypothyroidism (244.9 | E03.9), Benign essential hypertension (401.1 | I10), Senile dementia, without behavioral disturbance ( 290.0 | F03.90) Encounter Reason: Transition into care - The patient is transitioning into care from a hospital (dismissed from [facility] on 11/17/2014.) and a summary of care was reviewed ., [ADDITIONAL REASON] Diabetes Type II, Follow Up - The last clinic visit was 9 day(s) ago (dismissed from [facility] on 11/17/2014.). Symptoms do not include [...] lipid testing was done on 2013 (at [place]) and the results included total cholesterol 167 [...] tolerance of treatment and fair symptom control. [facility] On 26-Nov-2014 13:52 to 16:06 Historical Summary [facility] On 23-Nov-2014 10:32 to 10:37 Medication Entry - Controlled diabetes mellitus (250.00 | E11.9) [facility] On 22-Nov-2014 14:11 to 14:17 Medication Entry [facility] On 07-Jun-2014 15:01 to 15:07 Office Visit - COMBO MEDICARE HIGH DOSE INFLUENZA AND PREVNAR PNEUMOVAX ( Renamed from Need for prophylactic vaccination against Streptococcus pneumoniae (pneumococcus) and influenza) (V06.6 | Z23), Atherosclerotic heart disease of [place] coronary artery without angina pectoris (414.01 | [...] lipid testing was done on 12/08/2013 (at [place]) and the results included total cholesterol 167 [...] fat diet, aspirin, MARCUS inhibitors and statins. [facility] On 15-May-2014 14:23 to 16:08 Medication Entry [facility] On 12:04 to 12:12 Office Visit - Controlled diabetes mellitus (250.00 | E11.9), Benign essential hypertension (401.1 | I10), Atherosclerotic heart disease of [place] coronary artery without angina pectoris (414.01 | [...] Hgb A1c was done on 2013 (at [place]) and the result was 8.3 %. Most recent microalbumin was done on 12/08 and the result was mcg/mg Creatinine (64). Most recent lipid testing was done on 12/08/2013 (at [place]) and the results included total cholesterol 167 [...] fat diet, aspirin, MARCUS inhibitors and statins. [facility] On 11:49 to 16:18 Historical Summary [facility] On 10:50 to 10:53 Office Visit - Atherosclerotic heart disease of [place] coronary artery without angina pectoris (414.01 | [...] fat diet, aspirin, MARCUS inhibitors and statins. [facility] On 03-Aug-2013 08:48 to 11:10 Historical Summary [facility] On 02-Aug-2013 10:28 to 10:30 Nurse Visit - Need for prophylactic vaccination and inoculation against influenza (V04.81) [facility] On 03-May-2013 12:59 to 13:01 Office Visit - Controlled diabetes mellitus (250.00 | E11.9), Kidney disease, chronic, stage III (moderate, EGFR 30-59 ml/min) (585.3 | N18.3), Atherosclerotic heart disease of [place] coronary artery without angina pectoris (414.01 | [...] fat diet, aspirin, MARCUS inhibitors and statins. [facility] On 16-Mar-2013 10:17 to 11:40 Office Visit - Benign essential hypertension (401.1 | I10), Kidney disease, chronic, stage III (GFR 30-59 ml/min) (585.3), Atherosclerotic heart disease of [place] coronary artery without angina pectoris (414.01 | [...] fat diet, aspirin, MARCUS inhibitors and statins. [facility] On 08-Nov-2012 10:08 to 11:01 Office Visit - Fluzone High Dose MEDICARE VACCINE AGAINST INFLUENZA (V04.81), Type II diabetes mellitus (250.00), Hypertension, benign (401.1), Peripheral vascular disease (Renamed from Peripheral blood vessel disorder) (443.9 | I73.9) , Kidney disease, chronic, stage III (GFR 30-59 ml/min) (585.3), Atherosclerotic heart disease of [place] coronary artery without angina pectoris (414.01 | [...] fat diet, aspirin, MARCUS inhibitors and statins. [facility] 10-May-2012 to 12-May-2012 Office Visit [...] fat diet, aspirin, MARCUS inhibitors and statins. [facility] 15-Oct-2011 to 18-Oct-2011 Historical Summary [facility] On 14-Oct-2011 15:43 to 16:07 [...] of oral contraceptives, visual disturbances or weakness. [facility] On 11-Jun-2011 11:27 to 12:04 Historical Summary [facility] On 11-Jun-2011 08:17 to 08:20 [...] of oral contraceptives, visual disturbances or weakness. [facility] to Lab entry only - Diabetes mellitus (250.00) [facility] On 24-Oct-2010 10:43 to 10:45 [...] good tolerance of treatment and good symptom control.[facility] 28-Aug-2010 to 29-Aug-2010 Office Visit [...] myocardial infarction and sudden (Dad suddenly of [place] at the age of 72.). Pertinent social [...] last visit. Onset was 15 year(s) ago. [facility] 24-Apr-2010 to 30-Apr-2010 Lab entry only - Diabetes mellitus type 1 (250.01), Hypertension, benign ( 401.1), Hypercholesterolemia (272.0) [facility] On 22-Apr-2010 12:43 to 14:00 Lab entry only - Diabetes mellitus type 1 (250.01) [facility] On 22-Apr-2010 12:09 to 12:13 Historical Summary - Pre-operative examination (V72.84), Coronary atherosclerosis (414.00) [facility] On 22-Apr-2010 11:35 to 12:09 Insurance * Chi Lowry ; a guarantor * Medicare WPS * BS Plan 65
--- OUTSIDE RECORDS SUMMARY | 2017-04-29 00:41 | XMS REPORT | Continuity of Care Document ---
Author Author [facility] Organization [facility] Address [address] [place] [address] Phone Care Team Providers Care Can Closing Machine Tender Name Role Phone Aakash Hernández MD PP Aakash Hernández MD Unavailable Shaylee Rajput Unavailable Unavailable Josie Allison Unavailable Unavailable Problems Name Dates Details Acquired hypothyroidism (244.9, E03.9) Status: Active Anemia (Renamed from Absolute anemia) (285.9, D64.9) Status: Active Atherosclerosis of [place] coronary artery of [place] heart without angina pectoris (414.01, I25.10) Status: [...] online Completed:26-Mar-2015 INFLUENZA QUADRIVALENT VAC: FLU VACC ([id number]) Completed:27-Mar-2015 ADMINISTRATION OF INFLUENZA VIRUS VACCINE (G0008) [...] (G0009) Ordered:15-May-2014 PREVNAR 13 VALENT PNEUMOCOCCAL VACCINE (42481) Completed:07-Jun-2014 ADMINISTRATION OF INFLUENZA VACCINE (G0008) Ordered:15-May-2014 HIGH DOSE QUADRIVALENT INFLUENZA VACCINE ([id number]) Completed:07-Jun-2014 Follow up in 4 months Ordered: Follow up in 4 months Ordered:03-Aug-2013 ADMIN INFLUENZA VIRUS VAC: FLU VACC PRSV FREE INC ANTIG ([id number]) Completed: Comments: CAC order ADMINISTRATION OF INFLUENZA VIRUS VACCINE (G0008) Ordered:03-May-2013 Comments: CAC order Follow up in 4 months Ordered:16-Mar-2013 CAROTID BILATERAL US ([id number]) Ordered:09-Nov-2012 Follow up in 4 months Ordered:08-Nov-2012 ADMIN INFLUENZA VIRUS VAC: FLU VACC PRSV FREE INC ANTIG ([id number]) Ordered: ADMINISTRATION OF INFLUENZA VIRUS VACCINE (G0008) Ordered:10-May-2012 CAROTID BILATERAL US ([id number]) Ordered:15-Oct-2011 ADMINISTRATION OF INFLUENZA VIRUS VACCINE (G0008) Ordered:11-Jun-2011 FLU VACC PRSV FREE INC ANTIG ([id number]) Completed:15-Jun-2011 Chronic Kidney Failure *: chronic renal insufficiency Ordered:11-Jun-2011 Follow up in 4 months Ordered: Follow up in 4 months Ordered:28-Aug-2010 EXTREMITY STUDY ([id number]) Ordered:28-Aug-[address] SCAN OF LUMBAR SPINE (66225) Ordered:28-Aug-2010 ADMINISTRATION OF INFLUENZA VIRUS VACCINE (G0008) Completed:30-May-2010 FLU VACCINE, 3 YRS & >, IM ([id number]) Completed:24-Apr-2010 Catheterization, Left Heart-Skin Completed:02-Dec-2004 EKG Completed:13-Nov-2014 EKG Completed:22-Apr-2010 Flu Vaccine Completed:10-May-2012 Flu Vaccine Completed:26-Mar-2015 Pneumovax Completed:01-May-2008 Prevnar 13 Completed:15-May-2014 PSA Completed: Comments: (3.58) PSA Completed:03-Aug-2013 Comments: (3.93) Immunization Name Dates Details Fluzone Lot #: [id number] Administered on:11-Jun-2011 Comments: Site: Deltoid (Left) Influenza (3 years and up) Lot #: [id number] Administered on:24-Apr-2010 Comments: Site: Deltoid (Left) Influenza, preserv. free, enhanced immunogncty, IM Lot #: [id number] Administered on:26-Mar-2015 Comments: Site: Deltoid (Left) Influenza, preserv. free, enhanced immunogncty, IM Lot #: [id number] Administered on:03-May-2013 Comments: Site: Deltoid (Left) Influenza, preserv. free, enhanced immunogncty, IM Lot #: [id number] Administered on:15-May-2014 Comments: Site: Deltoid (Right) Pneumococcal (2 years and up) Administered on:01-May-2008 Pneumococcal conjugate vaccine, 13 valent, IM Lot #: [id number] Administered on:15-May-2014 Comments: Site: Deltoid (Left) Family [...] Alcohol Use Status: Active Place of Comments: [place] Status: Active Tobacco use: Former smoker. Status: [...] Description Value Details 22-Apr-2010 11:37 ELECTROCARDIOGRAM, COMPLETE (26228) [EKG] NM Interval: 1 mm Pending 07-May-2015 11:58 A1C [...] (Normal) 28-Feb-2014 09:48 TSH (THYROID STIMULATING HORMONE) (80157) Comments: Items in this order include: Draw [...] ng/mL (Normal) Range: 0.00-4.00 11:15 Urine Microalbumin (05352) Comments: Items in this order include: Draw [...] kb. Draw Drawn (Normal) 16-Mar-2013 11:42 CK ([id number]) Comments: Items in this order include: Basic Metabolic Panel, Hemoglobin A1C, Draw Charge[i], ALT, CKILast Hgb A1C was ran 128 Days ago. Check by kb CKI 220 U/L (Normal) Range: 39-308 11:42 ALT (35976) Comments: Items in this order include: Basic [...] Draw Drawn (Normal) 11-Nov-2012 08:39 LIPID PANEL (40800) Comments: Items in this order include: Draw [...] include: Draw Charge[i], Basic Metabolic Panel, Hemoglobin [id number] Hgb A1C was ran 182 Days ago. Check by kb Range: 4.6-6.2 Comments: Consistent with diabetes. 11:08 BMP Comments: Items in this order include: Draw Charge[i], Basic Metabolic Panel, Hemoglobin [id number] Hgb A1C was ran 182 Days ago. [...] include: Draw Charge[i], Basic Metabolic Panel, Hemoglobin [id number] Hgb A1C was ran 182 Days ago. Check by kb Draw Drawn (Normal) 10-May-2012 11:35 TSH (THYROID STIMULATING HORMONE) ([id number]) Comments: Items in this order include: Draw Charge[i], Basic Metabolic Panel, Hemoglobin A1C, Urine Microalbumin, TSHLast Hgb A1C was ran 208 Days ago. Check by KB TSH 4.90 uIU/ml (Normal) Range: 0.34-5.60 11:35 Urine Microalbumin (96162) Comments: Items in this order include: Draw [...] (Normal) 11-Jun-2011 12:08 CBC-MALE- ORDER THIS ONE! (27132) Comments: Items in this order include: Hemoglobin [...] Comments: Consistent with diabetes. 16:22 Urine Microalbumin (47728) Comments: Items in this order include: Basic [...] (Normal) Range: 135-145 24-Oct-2010 10:57 CREATININE BLOOD (27275) Comments: Verbal order from Dr. Aakash Hernández; Verbal order from Dr. Aakash Hernández eGFR 52.0 mL/min/1.73m2 (Abnormal) Range: >60.0 CREAT 1.4 mg/dL (Abnormal) Range: 0.6-1.3 28-Aug-2010 12:07 TSH (THYROID STIMULATING HORMONE) (05641) TSH 5.29 uIU/ml (Normal) Range: 0.34-5.60 12:07 CBC-MALE- ORDER THIS ONE! (11590) manual diff Not Indicated (Normal) MCHC 35.4 [...] 8.82 10*3/uL (Normal) Range: 4.50-10.50 12:07 CK (01132) CK 199 U/L (Abnormal) Range: 26-190 12:07 ALT (23148) ALT 35 [iU]/L (Normal) Range: 30-65 12:07 [...] Range: 135-145 22-Apr-2010 12:46 BASIC METABOLIC PANEL- [facility] (38572) Comments: See paper results 12:45 CBC PLATELETS & AUTO /DIFF MALE (34719) Comments: See paper results 12:12 HEMOGLOBIN GLYCLATED (HGB A1C) (77537) Comments: See paper results Treatment Plan * VENIPUNCTURE; Ordered: 02/23/2014 * LIPID PANEL (44433); Ordered: 06/15/2011 Advance Directives Encounters Review Encounter Reason: Alzheimers Disease - The history [...] recent microalbumin result was mcg/mg Creatinine (64). [facility] On 23-Jul-2015 14:42 Office Visit [...] was done on 12/11/2014 (done at the [facility]) and the result was 8.4 %. [...] tolerance of treatment and fair symptom control. [facility] On 07-May-2015 11:15 to 12:01 Office Visit - Fluzone High Dose MEDICARE VACCINE AGAINST INFLUENZA (V04.81), Controlled diabetes mellitus (250.00 | E11.9), Kidney disease, chronic, stage III (moderate, EGFR 30-59 ml/min) (585.3 | N18.3), Benign essential hypertension (401.1 | I10), Atherosclerosis of [place] coronary artery of [place] heart without angina pectoris (414.01 | I25.10) [...] was done on 12/11/2014 (done at the [facility]) and the result was 8.4 %. [...] tolerance of treatment and fair symptom control. [facility] On 26-Mar-2015 08:43 to 11:48 Office Visit - Controlled diabetes mellitus (250.00 | E11.9), Atherosclerosis of [place] coronary artery of [place] heart without angina pectoris (414.01 | I25.10), [...] tolerance of treatment and fair symptom control. [facility] On 13:35 to 16:41 Office [...] tolerance of treatment and fair symptom control. 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 Symptoms do not include [...] lipid testing was done on 2013 (at [facility]) and the results included total cholesterol 167 [...] tolerance of treatment and fair symptom control. [facility] On 26-Nov-2014 13:52 to 16:06 Historical Summary [facility] On 23-Nov-2014 10:32 to 10:37 Medication Entry - Controlled diabetes mellitus (250.00 | E11.9) [facility] On 22-Nov-2014 14:11 to 14:17 Medication Entry [facility] On 07-Jun-2014 15:01 to 15:07 Office Visit - COMBO MEDICARE HIGH DOSE INFLUENZA AND PREVNAR PNEUMOVAX ( Renamed from Need for prophylactic vaccination against Streptococcus pneumoniae (pneumococcus) and influenza) (V06.6 | Z23), Atherosclerotic heart disease of [place] coronary artery without angina pectoris (414.01 | [...] lipid testing was done on 12/08/2013 (at [facility]) and the results included total cholesterol 167 [...] fat diet, aspirin, MARCUS inhibitors and statins. [facility] On 15-May-2014 14:23 to 16:08 Medication Entry [facility] On 12:04 to 12:12 Office Visit - Controlled diabetes mellitus (250.00 | E11.9), Benign essential hypertension (401.1 | I10), Atherosclerotic heart disease of [place] coronary artery without angina pectoris (414.01 | [...] Hgb A1c was done on 2013 (at [facility]) and the result was 8.3 %. Most recent microalbumin was done on 12/08 and the result was mcg/mg Creatinine (64). Most recent lipid testing was done on 12/08/2013 (at [facility]) and the results included total cholesterol 167 [...] fat diet, aspirin, MARCUS inhibitors and statins. [facility] On 11:49 to 16:18 Historical Summary [facility] On 10:50 to 10:53 Office Visit - Atherosclerotic heart disease of [place] coronary artery without angina pectoris (414.01 | [...] fat diet, aspirin, MARCUS inhibitors and statins. [facility] On 03-Aug-2013 08:48 to 11:10 Historical Summary [facility] On 02-Aug-2013 10:28 to 10:30 Nurse Visit - Need for prophylactic vaccination and inoculation against influenza (V04.81) [facility] On 03-May-2013 12:59 to 13:01 Office Visit - Controlled diabetes mellitus (250.00 | E11.9), Kidney disease, chronic, stage III (moderate, EGFR 30-59 ml/min) (585.3 | N18.3), Atherosclerotic heart disease of [place] coronary artery without angina pectoris (414.01 | [...] fat diet, aspirin, MARCUS inhibitors and statins. [facility] On 16-Mar-2013 10:17 to 11:40 Office Visit - Benign essential hypertension (401.1 | I10), Kidney disease, chronic, stage III (GFR 30-59 ml/min) (585.3), Atherosclerotic heart disease of [place] coronary artery without angina pectoris (414.01 | [...] fat diet, aspirin, MARCUS inhibitors and statins. [facility] On 08-Nov-2012 10:08 to 11:01 Office Visit - Fluzone High Dose MEDICARE VACCINE AGAINST INFLUENZA (V04.81), Type II diabetes mellitus (250.00), Hypertension, benign (401.1), Peripheral vascular disease (Renamed from Peripheral blood vessel disorder) (443.9 | I73.9) , Kidney disease, chronic, stage III (GFR 30-59 ml/min) (585.3), Atherosclerotic heart disease of [place] coronary artery without angina pectoris (414.01 | [...] fat diet, aspirin, MARCUS inhibitors and statins. [facility] 10-May-2012 to 12-May-2012 Office Visit [...] fat diet, aspirin, MARCUS inhibitors and statins. [facility] 15-Oct-2011 to 18-Oct-2011 Historical Summary [facility] On 14-Oct-2011 15:43 to 16:07 [...] of oral contraceptives, visual disturbances or weakness. [facility] On 11-Jun-2011 11:27 to 12:04 Historical Summary [facility] On 11-Jun-2011 08:17 to 08:20 [...] of oral contraceptives, visual disturbances or weakness. [facility] to Lab entry only - Diabetes mellitus (250.00) [facility] On 24-Oct-2010 10:43 to 10:45 [...] good tolerance of treatment and good symptom control.[facility] 28-Aug-2010 to 29-Aug-2010 Office Visit [...] last visit. Onset was 15 year(s) ago. [facility] 24-Apr-2010 to 30-Apr-2010 Lab entry only - Diabetes mellitus type 1 (250.01), Hypertension, benign ( 401.1), Hypercholesterolemia (272.0) [facility] On 22-Apr-2010 12:43 to 14:00 Lab entry only - Diabetes mellitus type 1 (250.01) [facility] On 22-Apr-2010 12:09 to 12:13 Historical Summary - Pre-operative examination (V72.84), Coronary atherosclerosis (414.00) [facility] On 22-Apr-2010 11:35 to 12:09 Insurance * [employer] Lowry ; a guarantor * Medicare WPS * BS Plan 65
--- OUTSIDE RECORDS SUMMARY | 2017-04-29 00:43 | XMS REPORT | Continuity of Care Document ---
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 (414.01, I25.10) Status: [...] daily Active DONEPEZIL HCL, 10MG (Oral Tablet) at bedtime (10 MG) Active FOLIC ACID, [...] 22-Nov-2014 End Inactive Comments: faxed to [facility] GLYBURIDE, 5MG (Oral Tablet) daily (5 MG) [...] online Completed:26-Mar-2015 INFLUENZA QUADRIVALENT VAC: FLU VACC ([id number]) Completed:27-Mar-2015 ADMINISTRATION OF INFLUENZA VIRUS VACCINE (G0008) [...] (G0009) Ordered:15-May-2014 PREVNAR 13 VALENT PNEUMOCOCCAL VACCINE (51913) Completed:07-Jun-2014 ADMINISTRATION OF INFLUENZA VACCINE (G0008) Ordered:15-May-2014 HIGH DOSE QUADRIVALENT INFLUENZA VACCINE (39344) Completed:07-Jun-2014 Follow up in 4 months Ordered: Follow up in 4 months Ordered:03-Aug-2013 ADMIN INFLUENZA VIRUS VAC: FLU VACC PRSV FREE INC ANTIG ([id number]) Completed: Comments: CAC order ADMINISTRATION OF INFLUENZA VIRUS VACCINE (G0008) Ordered:03-May-2013 Comments: CAC order Follow up in 4 months Ordered:16-Mar-2013 CAROTID BILATERAL US ([id number]) Ordered:09-Nov-2012 Follow up in 4 months Ordered:08-Nov-2012 ADMIN INFLUENZA VIRUS VAC: FLU VACC PRSV FREE INC ANTIG ([id number]) Ordered: ADMINISTRATION OF INFLUENZA VIRUS VACCINE (G0008) Ordered:10-May-2012 CAROTID BILATERAL US ([id number]) Ordered:15-Oct-2011 ADMINISTRATION OF INFLUENZA VIRUS VACCINE (G0008) Ordered:11-Jun-2011 FLU VACC PRSV FREE INC ANTIG ([id number]) Completed:15-Jun-2011 Chronic Kidney Failure *: chronic renal insufficiency Ordered:11-Jun-2011 Follow up in 4 months Ordered: Follow up in 4 months Ordered:28-Aug-2010 EXTREMITY STUDY ([id number]) Ordered:28-Aug-[address] SCAN OF LUMBAR SPINE (25849) Ordered:28-Aug-2010 ADMINISTRATION OF INFLUENZA VIRUS VACCINE (G0008) Completed:30-May-2010 FLU VACCINE, 3 YRS & >, IM ([id number]) Completed:24-Apr-2010 Catheterization, Left Heart-Skin Completed:02-Dec-2004 EKG Completed:13-Nov-2014 EKG Completed:22-Apr-2010 Flu Vaccine Completed:10-May-2012 Flu Vaccine Completed:26-Mar-2015 Pneumovax Completed:01-May-2008 Prevnar 13 Completed:15-May-2014 PSA Completed:03-Aug-2013 Comments: (3.93) PSA Completed: Comments: (3.58) Immunization Name Dates Details Fluzone Lot #: [id number] Administered on:11-Jun-2011 Comments: Site: Deltoid (Left) Influenza (3 years and up) Lot #: [id number] Administered on:24-Apr-2010 Comments: Site: Deltoid (Left) Influenza, preserv. free, enhanced immunogncty, IM Lot #: [id number] Administered on:26-Mar-2015 Comments: Site: Deltoid (Left) Influenza, preserv. free, enhanced immunogncty, IM Lot #: [id number] Administered on:03-May-2013 Comments: Site: Deltoid (Left) Influenza, preserv. free, enhanced immunogncty, IM Lot #: [id number] Administered on:15-May-2014 Comments: Site: Deltoid (Right) Pneumococcal (2 years and up) Administered on:01-May-2008 Pneumococcal conjugate vaccine, 13 valent, IM Lot #: [id number] Administered on:15-May-2014 Comments: Site: Deltoid (Left) Family History Name Dates Details Brother 1 Comments: healthy Status: Active Brother 2 Comments: borderline diabetes Status: Active Father Comments: 72 yo of [place] Status: Active Mother Comments: at 67 of [...] Description Value Details 22-Apr-2010 11:37 ELECTROCARDIOGRAM, COMPLETE (05394) [EKG] ND Interval: 1 mm Pending 07-May-2015 11:58 A1C [...] (Normal) 28-Feb-2014 09:48 TSH (THYROID STIMULATING HORMONE) (48959) Comments: Items in this order include: Draw [...] ng/mL (Normal) Range: 0.00-4.00 11:15 Urine Microalbumin (54358) Comments: Items in this order include: Draw [...] kb. Draw Drawn (Normal) 16-Mar-2013 11:42 CK ([id number]) Comments: Items in this order include: Basic Metabolic Panel, Hemoglobin A1C, Draw Charge[i], ALT, CKILast Hgb A1C was ran 128 Days ago. Check by kb CKI 220 U/L (Normal) Range: 39-308 11:42 ALT (15452) Comments: Items in this order include: Basic [...] Draw Drawn (Normal) 11-Nov-2012 08:39 LIPID PANEL (05873) Comments: Items in this order include: Draw [...] include: Draw Charge[i], Basic Metabolic Panel, Hemoglobin [id number] Hgb A1C was ran 182 Days ago. Check by kb Range: 4.6-6.2 Comments: Consistent with diabetes. 11:08 BMP Comments: Items in this order include: Draw Charge[i], Basic Metabolic Panel, Hemoglobin [id number] Hgb A1C was ran 182 Days ago. [...] include: Draw Charge[i], Basic Metabolic Panel, Hemoglobin [id number] Hgb A1C was ran 182 Days ago. Check by kb Draw Drawn (Normal) 10-May-2012 11:35 TSH (THYROID STIMULATING HORMONE) (05336) Comments: Items in this order include: Draw Charge[i], Basic Metabolic Panel, Hemoglobin A1C, Urine Microalbumin, TSHLast Hgb A1C was ran 208 Days ago. Check by KB TSH 4.90 uIU/ml (Normal) Range: 0.34-5.60 11:35 Urine Microalbumin (60343) Comments: Items in this order include: Draw [...] (Normal) 11-Jun-2011 12:08 CBC-MALE- ORDER THIS ONE! (34611) Comments: Items in this order include: Hemoglobin [...] Comments: Consistent with diabetes. 16:22 Urine Microalbumin (28011) Comments: Items in this order include: Basic [...] (Normal) Range: 135-145 24-Oct-2010 10:57 CREATININE BLOOD (61106) Comments: Verbal order from Dr. Aakash Hernández; Verbal order from Dr. Aakash Hernández eGFR 52.0 mL/min/1.73m2 (Abnormal) Range: >60.0 CREAT 1.4 mg/dL (Abnormal) Range: 0.6-1.3 3-Aug-2010 12:07 TSH (THYROID STIMULATING HORMONE) (06519) TSH 5.29 uIU/ml (Normal) Range: 0.34-5.60 12:07 CBC-MALE- ORDER THIS ONE! (05834) manual diff Not Indicated (Normal) MCHC 35.4 [...] 8.82 10*3/uL (Normal) Range: 4.50-10.50 12:07 CK (90170) CK 199 U/L (Abnormal) Range: 26-190 12:07 ALT (11511) ALT 35 [iU]/L (Normal) Range: 30-65 12:07 [...] 135-145 22-Apr-2010 12:46 BASIC METABOLIC PANEL- [facility] (95013) Comments: See paper results 12:45 CBC PLATELETS & AUTO /DIFF MALE (94329) Comments: See paper results 12:12 HEMOGLOBIN GLYCLATED (HGB A1C) (20609) Comments: See paper results Treatment Plan * A1C; Ordered: 09/03/2015 * CBC-MALE- ORDER THIS ONE! 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 [facility] On 03-Sep-2015 09:02 to 11:20 [...] recent microalbumin result was mcg/mg Creatinine (64). [facility] On 23-Jul-2015 14:42 to 16:12 [...] was done on 12/11/2014 (done at the [facility]) and the result was 8.4 %. [...] tolerance of treatment and fair symptom control. 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 [...] tolerance of treatment and fair symptom control. 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 [facility] On 13:35 to 16:41 Office [...] tolerance of treatment and fair symptom control. 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 Symptoms do not include [...] lipid testing was done on 2013 (at [facility]) and the results included total cholesterol 167 [...] tolerance of treatment and fair symptom control. 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 Most recent microalbumin was done on 12/08 and the result was mcg/mg Creatinine (64). Most recent lipid testing was done on 12/08/2013 (at [facility]) and the results included total cholesterol 167 [...] fat diet, aspirin, MARCUS inhibitors and statins. 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 [facility] 10-May-2012 to 12-May-2012 Office Visit [...] fat diet, aspirin, MARCUS inhibitors and statins. [facility] 15-Oct-2011 to 18-Oct-2011 Historical Summary [facility] On 14-Oct-2011 15:43 to 16:07 [...] of oral contraceptives, visual disturbances or weakness. [facility] On 11-Jun-2011 11:27 to 12:04 Historical Summary [facility] On 11-Jun-2011 08:17 to 08:20 [...] of oral contraceptives, visual disturbances or weakness. [facility] to Lab entry only - Diabetes mellitus (250.00) [facility] On 24-Oct-2010 10:43 to 10:45 [...] good tolerance of treatment and good symptom control.[facility] 28-Aug-2010 to 29-Aug-2010 Office Visit [...] myocardial infarction and sudden (Dad suddenly of [place] at the age of 72.). Pertinent social [...] last visit. Onset was 15 year(s) ago. [facility] 24-Apr-2010 to 30-Apr-2010 Lab entry only - Diabetes mellitus type 1 (250.01), Hypertension, benign ( 401.1), Hypercholesterolemia (272.0) [facility] On 22-Apr-2010 12:43 to 14:00 Lab entry only - Diabetes mellitus type 1 (250.01) [facility] On 22-Apr-2010 12:09 to 12:13 Historical Summary - Pre-operative examination (V72.84), Coronary atherosclerosis (414.00) [facility] On 22-Apr-2010 11:35 to 12:09 Insurance * Chi Lowry ; a guarantor * Medicare WPS * BS Plan 65
--- OUTSIDE RECORDS SUMMARY | 2017-04-29 00:44 | XMS REPORT | Continuity of Care Document ---
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, I25.10) Status: [...] Tablet) one-half at bedtime (10 MG) Active DOXYCYCLINE MONOHYDRATE, 100MG (Oral Tablet) 1 (one) Tablet two times daily for 10 days Quantity: 20 {Tablet} Ordered:20-Nov-2015 Aakash Hernández MD* Start 20-Nov-2015 Active FOLIC ACID, 1MG (Oral Tablet) daily (1 MG) Active GLIPIZIDE, 10MG (Oral Tablet) daily (10 MG) Active LEVEMIR FLEXTOUCH, 100UNIT/ML (Subcutaneous Solution Pen-injector) 40 units in am, 30u in evening for 30 days * Quantity: 5 {Pre-filled_Pen_Syringe} Refills: 12 Ordered:10-Oct-2015 Aakash Hernández MD* Start 10-Oct-2015 Active LISINOPRIL, 5MG [...] online Completed:26-Mar-2015 INFLUENZA QUADRIVALENT VAC: FLU VACC ([id number]) Completed:27-Mar-2015 ADMINISTRATION OF INFLUENZA VIRUS VACCINE (G0008) [...] (G0009) Ordered:15-May-2014 PREVNAR 13 VALENT PNEUMOCOCCAL VACCINE (72999) Completed:07-Jun-2014 ADMINISTRATION OF INFLUENZA VACCINE (G0008) Ordered:15-May-2014 HIGH DOSE QUADRIVALENT INFLUENZA VACCINE ([id number]) Completed:07-Jun-2014 Follow up in 4 months Ordered: Follow up in 4 months Ordered:03-Aug-2013 ADMIN INFLUENZA VIRUS VAC: FLU VACC PRSV FREE INC ANTIG ([id number]) Completed: Comments: CAC order ADMINISTRATION OF INFLUENZA VIRUS VACCINE (G0008) Ordered:03-May-2013 Comments: CAC order Follow up in 4 months Ordered:16-Mar-2013 CAROTID BILATERAL US ([id number]) Ordered:09-Nov-2012 Follow up in 4 months Ordered:08-Nov-2012 ADMIN INFLUENZA VIRUS VAC: FLU VACC PRSV FREE INC ANTIG ([id number]) Ordered: ADMINISTRATION OF INFLUENZA VIRUS VACCINE (G0008) Ordered:10-May-2012 CAROTID BILATERAL US ([id number]) Ordered:15-Oct-2011 ADMINISTRATION OF INFLUENZA VIRUS VACCINE (G0008) Ordered:11-Jun-2011 FLU VACC PRSV FREE INC ANTIG ([id number]) Completed:15-Jun-2011 Chronic Kidney Failure *: chronic renal insufficiency Ordered:11-Jun-2011 Follow up in 4 months Ordered: Follow up in 4 months Ordered:28-Aug-2010 EXTREMITY STUDY ([id number]) Ordered:28-Aug-[address] SCAN OF LUMBAR SPINE (43328) Ordered:28-Aug-2010 ADMINISTRATION OF INFLUENZA VIRUS VACCINE (G0008) Completed:30-May-2010 FLU VACCINE, 3 YRS & >, IM ([id number]) Completed:24-Apr-2010 Catheterization, Left Heart-Skin Completed:02-Dec-2004 EKG Completed:13-Nov-2014 EKG Completed:22-Apr-2010 Flu Vaccine Completed:10-May-2012 Flu Vaccine Completed:26-Mar-2015 Pneumovax Completed:01-May-2008 Prevnar 13 Completed:15-May-2014 PSA Completed:03-Aug-2013 Comments: (3.93) PSA Completed: Comments: (3.58) Immunization Name Dates Details Fluzone Lot #: [id number] Administered on:11-Jun-2011 Comments: Site: Deltoid (Left) Influenza (3 years and up) Lot #: [id number] Administered on:24-Apr-2010 Comments: Site: Deltoid (Left) Influenza, preserv. free, enhanced immunogncty, IM Lot #: [id number] Administered on:26-Mar-2015 Comments: Site: Deltoid (Left) Influenza, preserv. free, enhanced immunogncty, IM Lot #: [id number] Administered on:03-May-2013 Comments: Site: Deltoid (Left) Influenza, preserv. free, enhanced immunogncty, IM Lot #: [id number] Administered on:15-May-2014 Comments: Site: Deltoid (Right) Pneumococcal (2 years and up) Administered on:01-May-2008 Pneumococcal conjugate vaccine, 13 valent, IM Lot #: [id number] Administered on:15-May-2014 Comments: Site: Deltoid (Left) Family [...] Description Value Details 22-Apr-2010 11:37 ELECTROCARDIOGRAM, COMPLETE ([id number]) [EKG] UT Interval: 1 mm Pending 03-Sep-2015 11:24 A1C 9.1 % (Abnormal) Range: 4.6-6.2 Comments: Consistent with diabetes. 11:24 CBC-MALE- ORDER THIS ONE! (26411) manual diff Not Indicated (Normal) mpv 10.60 [...] (Normal) Range: 4.50-10.50 11:24 Vitamin D, 25-Hydroxy (37498) Comments: [facility] performed at: [facility], [address] [place] [address], [id number], Scrub Nurse: Kike Sidhu D.O., MPHQuest VITAMIN D,25-OH,TOTAL,IA 24 ng/mL (Abnormal) Range: 30-100 Comments: Vitamin D Status 25-OH Vitamin D: Deficiency: <20 ng/mLInsufficiency: 20 - 29 ng/mLOptimal: > or=30 ng/mL For 25-OH Vitamin D testing on patients on D2-supplementation and patients for whom quantitation of D2 and D3 fractions is required, the QuestAssureD(TM)25-OH VIT D, (D2,D3), LC/MS/MS is recommended: order code 39290 (patients >2yrs). For more information on this test, go to:http:// education.[place]/faq/XUE282(This link is being provided for informational/educational purposes only.) 11:24 PTH Intact (11083) Comments: Items in this order include: Draw Charge[i], Basic Metabolic Panel, PTH, Vitamin D, 25-Hydroxy, CBC, Hemoglobin [id number] performed at: [facility], [address] [place] , [address], Scrub Nurse: Kike Sidhu D.O., MPHQuest PARATHYROID HORMONE, INTACT [...] (Normal) 28-Feb-2014 09:48 TSH (THYROID STIMULATING HORMONE) (40560) Comments: Items in this order include: Draw [...] ng/mL (Normal) Range: 0.00-4.00 11:15 Urine Microalbumin (63419) Comments: Items in this order include: Draw [...] kb. Draw Drawn (Normal) 16-Mar-2013 11:42 CK ([id number]) Comments: Items in this order include: Basic Metabolic Panel, Hemoglobin A1C, Draw Charge[i], ALT, CKILast Hgb A1C was ran 128 Days ago. Check by kb CKI 220 U/L (Normal) Range: 39-308 11:42 ALT ([id number]) Comments: Items in this order include: Basic [...] Draw Drawn (Normal) 11-Nov-2012 08:39 LIPID PANEL (87842) Comments: Items in this order include: Draw [...] include: Draw Charge[i], Basic Metabolic Panel, Hemoglobin [id number] Hgb A1C was ran 182 Days ago. Check by kb Range: 4.6-6.2 Comments: Consistent with diabetes. 11:08 BMP Comments: Items in this order include: Draw Charge[i], Basic Metabolic Panel, Hemoglobin [id number] Hgb A1C was ran 182 Days ago. [...] include: Draw Charge[i], Basic Metabolic Panel, Hemoglobin [id number] Hgb A1C was ran 182 Days ago. Check by kb Draw Drawn (Normal) 10-May-2012 11:35 TSH (THYROID STIMULATING HORMONE) ([id number]) Comments: Items in this order include: Draw Charge[i], Basic Metabolic Panel, Hemoglobin A1C, Urine Microalbumin, TSHLast Hgb A1C was ran 208 Days ago. Check by KB TSH 4.90 uIU/ml (Normal) Range: 0.34-5.60 11:35 Urine Microalbumin (19524) Comments: Items in this order include: Draw [...] (Normal) 11-Jun-2011 12:08 CBC-MALE- ORDER THIS ONE! (66605) Comments: Items in this order include: Hemoglobin [...] Comments: Consistent with diabetes. 16:22 Urine Microalbumin (57161) Comments: Items in this order include: Basic [...] (Normal) Range: 135-145 24-Oct-2010 10:57 CREATININE BLOOD (77252) Comments: Verbal order from Dr. Aakash Hernández; Verbal order from Dr. Aakash Hernández eGFR 52.0 mL/min/1.73m2 (Abnormal) Range: >60.0 CREAT 1.4 mg/dL (Abnormal) Range: 0.6-1.3 28-Aug-2010 12:07 TSH (THYROID STIMULATING HORMONE) (45693) TSH 5.29 uIU/ml (Normal) Range: 0.34-5.60 12:07 CBC-MALE- ORDER THIS ONE! (67901) manual diff Not Indicated (Normal) MCHC 35.4 [...] 8.82 10*3/uL (Normal) Range: 4.50-10.50 12:07 CK (95496) CK 199 U/L (Abnormal) Range: 26-190 12:07 ALT (17771) ALT 35 [iU]/L (Normal) Range: 30-65 12:07 [...] Range: 135-145 22-Apr-2010 12:46 BASIC METABOLIC PANEL[place] [facility] [place] ([address]) Comments: See paper results 12:45 CBC PLATELETS & AUTO /DIFF MALE (56736) Comments: See paper results 12:12 HEMOGLOBIN GLYCLATED (HGB A1C) (76375) Comments: See paper results Treatment Plan * VENIPUNCTURE; Ordered: 02/23/2014 * LIPID PANEL (56416); Ordered: 06/15/2011 Advance Directives Encounters Office Visit - Kidney disease, chronic, stage III (moderate, EGFR 30-59 ml/min ) (585.3 | N18.3), Controlled diabetes mellitus (250.00 | E11.9), Benign essential hypertension (401.1 | I10), 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 [facility] On 20-Nov-2015 10:41 to 11:12 Medication Entry [facility] On 27-Sep-2015 12:29 to 12:35 Office Visit - Controlled diabetes mellitus (250.00 | E11.9), Kidney disease, chronic, stage III (moderate, EGFR 30-59 ml/min) (585.3 | N18.3), Benign essential hypertension (401.1 | I10), Atherosclerosis of [place] coronary artery of [place] heart without angina pectoris (414.01 | I25.10), [...] recent microalbumin result was mcg/mg Creatinine (64). [facility] On 03-Sep-2015 09:02 to 11:20 [...] recent microalbumin result was mcg/mg Creatinine (64). [facility] On 23-Jul-2015 14:42 to 16:12 [...] was done on 12/11/2014 (done at the [facility]) and the result was 8.4 [...] tolerance of treatment and fair symptom control. [facility] On 07-May-2015 11:15 to 12:01 Office Visit - Fluzone High Dose MEDICARE VACCINE AGAINST INFLUENZA (V04.81), Controlled diabetes mellitus (250.00 | E11.9), Kidney disease, chronic, stage III (moderate, EGFR 30-59 ml/min) (585.3 | N18.3), Benign essential hypertension (401.1 | I10), Atherosclerosis of [place] coronary artery of [place] heart without angina pectoris (414.01 | I25.10) [...] was done on 12/11/2014 (done at the [facility]) and the result was 8.4 %. [...] tolerance of treatment and fair symptom control. [facility] On 26-Mar-2015 08:43 to 11:48 Office Visit - Controlled diabetes mellitus (250.00 | E11.9), Atherosclerosis of [place] coronary artery of [place] heart without angina pectoris (414.01 | I25.10), [...] tolerance of treatment and fair symptom control. [facility] On 13:35 to 16:41 Office [...] tolerance of treatment and fair symptom control. [facility] On 13:23 to 16:54 Office Visit - Controlled diabetes mellitus (250.00 | E11.9), Kidney disease, chronic, stage III (moderate, EGFR 30-59 ml/min) (585.3 | N18.3), Atherosclerotic heart disease of [place] coronary artery without angina pectoris (414.01 | [...] lipid testing was done on 2013 (at [facility]) and the results included total cholesterol 167 [...] tolerance of treatment and fair symptom control. [facility] On 26-Nov-2014 13:52 to 16:06 Historical Summary [facility] On 23-Nov-2014 10:32 to 10:37 Medication Entry - Controlled diabetes mellitus (250.00 | E11.9) [facility] On 22-Nov-2014 14:11 to 14:17 Medication Entry [facility] On 07-Jun-2014 15:01 to 15:07 Office Visit - COMBO MEDICARE HIGH DOSE INFLUENZA AND PREVNAR PNEUMOVAX ( Renamed from Need for prophylactic vaccination against Streptococcus pneumoniae (pneumococcus) and influenza) (V06.6 | Z23), Atherosclerotic heart disease of [place] coronary artery without angina pectoris (414.01 | [...] lipid testing was done on 12/08/2013 (at [facility]) and the results included total cholesterol 167 [...] fat diet, aspirin, MARCUS inhibitors and statins. [facility] On 15-May-2014 14:23 to 16:08 Medication Entry [facility] On 12:04 to 12:12 Office Visit - Controlled diabetes mellitus (250.00 | E11.9), Benign essential hypertension (401.1 | I10), Atherosclerotic heart disease of [place] coronary artery without angina pectoris (414.01 | [...] Hgb A1c was done on 2013 (at [facility]) and the result was 8.3 %. Most recent microalbumin was done on 12/08 and the result was mcg/mg Creatinine (64). Most recent lipid testing was done on 12/08/2013 (at [facility]) and the results included total cholesterol 167 [...] fat diet, aspirin, MARCUS inhibitors and statins. [facility] On 11:49 to 16:18 Historical Summary [facility] On 10:50 to 10:53 Office Visit - Atherosclerotic heart disease of [place] coronary artery without angina pectoris (414.01 | [...] fat diet, aspirin, MARCUS inhibitors and statins. [facility] On 03-Aug-2013 08:48 to 11:10 Historical Summary [facility] On 02-Aug-2013 10:28 to 10:30 Nurse Visit - Need for prophylactic vaccination and inoculation against influenza (V04.81) [facility] On 03-May-2013 12:59 to 13:01 Office Visit - Controlled diabetes mellitus (250.00 | E11.9), Kidney disease, chronic, stage III (moderate, EGFR 30-59 ml/min) (585.3 | N18.3), Atherosclerotic heart disease of [place] coronary artery without angina pectoris (414.01 | [...] treatment includes dietary modification, thiazide diuretic and MARCSU inhibitor. By report there is good compliance [...] fat diet, aspirin, MARCUS inhibitors and statins. [facility] On 16-Mar-2013 10:17 to 11:40 Office Visit - Benign essential hypertension (401.1 | I10), Kidney disease, chronic, stage III (GFR 30-59 ml/min) (585.3), Atherosclerotic heart disease of [place] coronary artery without angina pectoris (414.01 | [...] fat diet, aspirin, MARCUS inhibitors and statins. [facility] On 08-Nov-2012 10:08 to 11:01 Office Visit - Fluzone High Dose MEDICARE VACCINE AGAINST INFLUENZA (V04.81), Type II diabetes mellitus (250.00), Hypertension, benign (401.1), Peripheral vascular disease (Renamed from Peripheral blood vessel disorder) (443.9 | I73.9) , Kidney disease, chronic, stage III (GFR 30-59 ml/min) (585.3), Atherosclerotic heart disease of [place] coronary artery without angina pectoris (414.01 | [...] fat diet, aspirin, MARCUS inhibitors and statins. [facility] 10-May-2012 to 12-May-2012 Office Visit [...] fat diet, aspirin, MARCUS inhibitors and statins. [facility] 15-Oct-2011 to 18-Oct-2011 Historical Summary [facility] On 14-Oct-2011 15:43 to 16:07 [...] of oral contraceptives, visual disturbances or weakness. [facility] On 11-Jun-2011 11:27 to 12:04 Historical Summary [facility] On 11-Jun-2011 08:17 to 08:20 [...] of oral contraceptives, visual disturbances or weakness. [facility] to Lab entry only - Diabetes mellitus (250.00) [facility] On 24-Oct-2010 10:43 to 10:45 [...] good tolerance of treatment and good symptom control.[facility] 28-Aug-2010 to 29-Aug-2010 Office Visit [...] last visit. Onset was 15 year(s) ago. [facility] 24-Apr-2010 to 30-Apr-2010 Lab entry only - Diabetes mellitus type 1 (250.01), Hypertension, benign ( 401.1), Hypercholesterolemia (272.0) [facility] On 22-Apr-2010 12:43 to 14:00 Lab entry only - Diabetes mellitus type 1 (250.01) [facility] On 22-Apr-2010 12:09 to 12:13 Historical Summary - Pre-operative examination (V72.84), Coronary atherosclerosis (414.00) [facility] On 22-Apr-2010 11:35 to 12:09 Insurance * Chi Lowry ; chuck guarantor * Medicare WPS * BS Plan 65
--- OUTSIDE RECORDS SUMMARY | 2017-04-29 00:46 | XMS REPORT | Continuity of Care Document ---
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.01, I25.10) Status: [...] Start 22-Nov-2014 End Inactive Comments: faxed to [facility] GLYBURIDE, 5MG (Oral Tablet) - Historical Medication daily (5 MG) Inactive HYDROCHLOROTHIAZIDE, 25MG (Oral Tablet) - Historical Medication daily (25 MG) Inactive LANTUS SOLOSTAR, 100UNIT/ML (Subcutaneous Solution Pen-injector) 5 units units at bedtime for 90 days * Quantity: 450 {Milliliter} Refills: 4 Ordered: Imelda Mena R.N.* Start 22-Nov-2014 End Inactive Comments: rx faxed to [facility] LEVOTHYROXINE SODIUM, 75MCG (Oral Tablet) 1 (one) Tablet Tablet daily for 30 days * Quantity: 30 {Tablet} Refills: 12 Ordered:26-Nov-2014 Imelda Mena R.N.* Start End 26-Nov-2014 Inactive LISINOPRIL, 20MG (Oral Tablet) - Historical Medication one-half tablet of 40mg daily (20 MG) Inactive LISINOPRIL, 5MG (Oral Tablet) - Historical Medication daily (5 MG) Inactive Comments: faxed to [facility] NAMENDA XR TITRATION PACK, 7 & 14 [...] online Completed:26-Mar-2015 INFLUENZA QUADRIVALENT VAC: FLU VACC ([id number]) Completed:27-Mar-2015 ADMINISTRATION OF INFLUENZA VIRUS VACCINE (G0008) [...] (G0009) Ordered:15-May-2014 PREVNAR 13 VALENT PNEUMOCOCCAL VACCINE ([id number]) Completed:07-Jun-2014 ADMINISTRATION OF INFLUENZA VACCINE (G0008) Ordered:15-May-2014 HIGH DOSE QUADRIVALENT INFLUENZA VACCINE (17348) Completed:07-Jun-2014 Follow up in 4 months Ordered: Follow up in 4 months Ordered:03-Aug-2013 ADMIN INFLUENZA VIRUS VAC: FLU VACC PRSV FREE INC ANTIG ([id number]) Completed: Comments: CAC order ADMINISTRATION OF INFLUENZA VIRUS VACCINE (G0008) Ordered:03-May-2013 Comments: CAC order Follow up in 4 months Ordered:16-Mar-2013 CAROTID BILATERAL US ([id number]) Ordered:09-Nov-2012 Follow up in 4 months Ordered:08-Nov-2012 ADMIN INFLUENZA VIRUS VAC: FLU VACC PRSV FREE INC ANTIG ([id number]) Ordered: ADMINISTRATION OF INFLUENZA VIRUS VACCINE (G0008) Ordered:10-May-2012 CAROTID BILATERAL US ([id number]) Ordered:15-Oct-2011 ADMINISTRATION OF INFLUENZA VIRUS VACCINE (G0008) Ordered:11-Jun-2011 FLU VACC PRSV FREE INC ANTIG ([id number]) Completed:15-Jun-2011 Chronic Kidney Failure *: chronic renal insufficiency Ordered:11-Jun-2011 Follow up in 4 months Ordered: Follow up in 4 months Ordered:28-Aug-2010 EXTREMITY STUDY ([id number]) Ordered:28-Aug-[address] SCAN OF LUMBAR SPINE (91004) Ordered:28-Aug-2010 ADMINISTRATION OF INFLUENZA VIRUS VACCINE (G0008) Completed:30-May-2010 FLU VACCINE, 3 YRS & >, IM ([id number]) Completed:24-Apr-2010 Catheterization, Left Heart-Skin Completed:02-Dec-2004 EKG Completed:13-Nov-2014 EKG Completed:22-Apr-2010 Flu Vaccine Completed:10-May-2012 Flu Vaccine Completed:26-Mar-2015 Pneumovax Completed:01-May-2008 Prevnar 13 Completed:15-May-2014 PSA Completed: Comments: (3.58) PSA Completed:03-Aug-2013 Comments: (3.93) Immunization Name Dates Details Fluzone Lot #: [id number] Administered on:11-Jun-2011 Comments: Site: Deltoid (Left) Influenza (3 years and up) Lot #: [id number] Administered on:24-Apr-2010 Comments: Site: Deltoid (Left) Influenza, preserv. free, enhanced immunogncty, IM Lot #: [id number] Administered on:26-Mar-2015 Comments: Site: Deltoid (Left) Influenza, preserv. free, enhanced immunogncty, IM Lot #: [id number] Administered on:03-May-2013 Comments: Site: Deltoid (Left) Influenza, preserv. free, enhanced immunogncty, IM Lot #: [id number] Administered on:15-May-2014 Comments: Site: Deltoid (Right) Pneumococcal (2 years and up) Administered on:01-May-2008 Pneumococcal conjugate vaccine, 13 valent, IM Lot #: [id number] Administered on:15-May-2014 Comments: Site: Deltoid (Left) Family [...] Description Value Details 22-Apr-2010 11:37 ELECTROCARDIOGRAM, COMPLETE (47352) [EKG] [place] Interval: 1 mm Pending 26-Nov-2014 15:59 BMP [...] (Normal) 28-Feb-2014 09:48 TSH (THYROID STIMULATING HORMONE) ([id number]) Comments: Items in this order include: Draw [...] ng/mL (Normal) Range: 0.00-4.00 11:15 Urine Microalbumin (10405) Comments: Items in this order include: Draw [...] kb. Draw Drawn (Normal) 16-Mar-2013 11:42 CK ([id number]) Comments: Items in this order include: Basic Metabolic Panel, Hemoglobin A1C, Draw Charge[i], ALT, CKILast Hgb A1C was ran 128 Days ago. Check by kb CKI 220 U/L (Normal) Range: 39-308 11:42 ALT (17356) Comments: Items in this order include: Basic [...] Draw Drawn (Normal) 11-Nov-2012 08:39 LIPID PANEL (16020) Comments: Items in this order include: Draw [...] include: Draw Charge[i], Basic Metabolic Panel, Hemoglobin [id number] Hgb A1C was ran 182 Days ago. Check by kb Range: 4.6-6.2 Comments: Consistent with diabetes. 11:08 BMP Comments: Items in this order include: Draw Charge[i], Basic Metabolic Panel, Hemoglobin [id number] Hgb A1C was ran 182 Days ago. [...] include: Draw Charge[i], Basic Metabolic Panel, Hemoglobin [id number] Hgb A1C was ran 182 Days ago. Check by kb Draw Drawn (Normal) 10-May-2012 11:35 TSH (THYROID STIMULATING HORMONE) ([id number]) Comments: Items in this order include: Draw Charge[i], Basic Metabolic Panel, Hemoglobin A1C, Urine Microalbumin, TSHLast Hgb A1C was ran 208 Days ago. Check by KB TSH 4.90 uIU/ml (Normal) Range: 0.34-5.60 11:35 Urine Microalbumin (06556) Comments: Items in this order include: Draw [...] (Normal) 11-Jun-2011 12:08 CBC-MALE- ORDER THIS ONE! ([id number]) Comments: Items in this order include: Hemoglobin [...] Comments: Consistent with diabetes. 16:22 Urine Microalbumin (60771) Comments: Items in this order include: Basic [...] (Normal) Range: 135-145 24-Oct-2010 10:57 CREATININE BLOOD ([id number]) Comments: Verbal order from Dr. Aakash Hernández; Verbal order from Dr. Aakash Hernández eGFR 52.0 mL/min/1.73m2 (Abnormal) Range: >60.0 CREAT 1.4 mg/dL (Abnormal) Range: 0.6-1.3 -Aug-2010 12:07 TSH (THYROID STIMULATING HORMONE) (13157) TSH 5.29 uIU/ml (Normal) Range: 0.34-5.60 12:07 CBC-MALE- ORDER THIS ONE! (89657) manual diff Not Indicated (Normal) MCHC 35.4 [...] 8.82 10*3/uL (Normal) Range: 4.50-10.50 12:07 CK (89845) CK 199 U/L (Abnormal) Range: 26-190 12:07 ALT (43551) ALT 35 [iU]/L (Normal) Range: 30-65 12:07 [...] Range: 135-145 22-Apr-2010 12:46 BASIC METABOLIC PANEL- [facility] [place] (28502) Comments: See paper results 12:45 CBC PLATELETS & AUTO /DIFF MALE (26914) Comments: See paper results 12:12 HEMOGLOBIN GLYCLATED (HGB A1C) (81568) Comments: See paper results Treatment Plan * A1C; Ordered: 05/07/2015 * BMP; Ordered: 05/07/2015 * VENIPUNCTURE; Ordered: 05/07/2015 * VENIPUNCTURE; Ordered: 02/23/2014 * LIPID PANEL (23398); Ordered: 06/15/2011 Advance Directives Encounters Office Visit [...] was done on 12/11/2014 (done at the [facility]) and the result was 8.4 %. [...] tolerance of treatment and fair symptom control. 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 [...] tolerance of treatment and fair symptom control. [facility] On 26-Mar-2015 08:43 to 11:48 Office Visit - Controlled diabetes mellitus (250.00 | E11.9), Atherosclerosis of [place] coronary artery of [place] heart without angina pectoris (414.01 | I25.10), [...] tolerance of treatment and fair symptom control. [facility] On 13:35 to 16:41 Office [...] tolerance of treatment and fair symptom control. [facility] On 13:23 to 16:54 Office Visit - Controlled diabetes mellitus (250.00 | E11.9), Kidney disease, chronic, stage III (moderate, EGFR 30-59 ml/min) (585.3 | N18.3), Atherosclerotic heart disease of [place] coronary artery without angina pectoris (414.01 | I25.10), Acquired hypothyroidism (244.9 | E03.9), Benign essential hypertension (401.1 | I10), Senile dementia, without behavioral disturbance ( 290.0 | F03.90) Encounter Reason: Transition into care - The patient is transitioning into care from a hospital (dismissed from [facility] on 11/17/2014.) and a summary of care was reviewed ., [ADDITIONAL REASON] Diabetes Type II, Follow Up - The last clinic visit was 9 day(s) ago (dismissed from [facility] on 11/17/2014.). Symptoms do not include [...] tolerance of treatment and fair symptom control. [facility] On 26-Nov-2014 13:52 to 16:06 Historical Summary [facility] On 23-Nov-2014 10:32 to 10:37 Medication Entry - Controlled diabetes mellitus (250.00 | E11.9) [facility] On 22-Nov-2014 14:11 to 14:17 Medication Entry [facility] On 07-Jun-2014 15:01 to 15:07 Office Visit - COMBO MEDICARE HIGH DOSE INFLUENZA AND PREVNAR PNEUMOVAX ( Renamed from Need for prophylactic vaccination against Streptococcus pneumoniae (pneumococcus) and influenza) (V06.6 | Z23), Atherosclerotic heart disease of [place] coronary artery without angina pectoris (414.01 | [...] fat diet, aspirin, MARCUS inhibitors and statins. [facility] On 15-May-2014 14:23 to 16:08 Medication Entry [facility] On 12:04 to 12:12 Office Visit - Controlled diabetes mellitus (250.00 | E11.9), Benign essential hypertension (401.1 | I10), Atherosclerotic heart disease of [place] coronary artery without angina pectoris (414.01 | [...] fat diet, aspirin, MARCUS inhibitors and statins. [facility] On 11:49 to 16:18 Historical Summary [facility] On 10:50 to 10:53 Office Visit - Atherosclerotic heart disease of [place] coronary artery without angina pectoris (414.01 | [...] fat diet, aspirin, MARCUS inhibitors and statins. [facility] On 03-Aug-2013 08:48 to 11:10 Historical Summary [facility] On 02-Aug-2013 10:28 to 10:30 Nurse Visit - Need for prophylactic vaccination and inoculation against influenza (V04.81) [facility] On 03-May-2013 12:59 to 13:01 Office Visit - Controlled diabetes mellitus (250.00 | E11.9), Kidney disease, chronic, stage III (moderate, EGFR 30-59 ml/min) (585.3 | N18.3), Atherosclerotic heart disease of [place] coronary artery without angina pectoris (414.01 | [...] fat diet, aspirin, MARCUS inhibitors and statins. [facility] On 16-Mar-2013 10:17 to 11:40 Office Visit - Benign essential hypertension (401.1 | I10), Kidney disease, chronic, stage III (GFR 30-59 ml/min) (585.3), Atherosclerotic heart disease of [place] coronary artery without angina pectoris (414.01 | [...] fat diet, aspirin, MARCUS inhibitors and statins. [facility] On 08-Nov-2012 10:08 to 11:01 Office Visit - Fluzone High Dose MEDICARE VACCINE AGAINST INFLUENZA (V04.81), Type II diabetes mellitus (250.00), Hypertension, benign (401.1), Peripheral vascular disease (Renamed from Peripheral blood vessel disorder) (443.9 | I73.9) , Kidney disease, chronic, stage III (GFR 30-59 ml/min) (585.3), Atherosclerotic heart disease of [place] coronary artery without angina pectoris (414.01 | [...] fat diet, aspirin, MARCUS inhibitors and statins. [facility] 10-May-2012 to 12-May-2012 Office Visit [...] fat diet, aspirin, MARCUS inhibitors and statins. [facility] 15-Oct-2011 to 18-Oct-2011 Historical Summary [facility] On 14-Oct-2011 15:43 to 16:07 [...] of oral contraceptives, visual disturbances or weakness. [facility] On 11-Jun-2011 11:27 to 12:04 Historical Summary [facility] On 11-Jun-2011 08:17 to 08:20 [...] of oral contraceptives, visual disturbances or weakness. [facility] to Lab entry only - Diabetes mellitus (250.00) [facility] On 24-Oct-2010 10:43 to 10:45 [...] good tolerance of treatment and good symptom control.[facility] 28-Aug-2010 to 29-Aug-2010 Office Visit [...] last visit. Onset was 15 year(s) ago. [facility] 24-Apr-2010 to 30-Apr-2010 Lab entry only - Diabetes mellitus type 1 (250.01), Hypertension, benign ( 401.1), Hypercholesterolemia (272.0) [facility] On 22-Apr-2010 12:43 to 14:00 Lab entry only - Diabetes mellitus type 1 (250.01) [facility] On 22-Apr-2010 12:09 to 12:13 Historical Summary - Pre-operative examination (V72.84), Coronary atherosclerosis (414.00) [facility] On 22-Apr-2010 11:35 to 12:09 Insurance * [employer] Lowry ; a guarantor * Medicare WPS * BS Plan 65
--- OUTSIDE RECORDS SUMMARY | 2017-04-29 00:47 | XMS REPORT | Continuity of Care Document ---
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, I25.10) Status: [...] Active LEVEMIR FLEXTOUCH, 100UNIT/ML (Subcutaneous Solution Pen-injector) 30 units two times daily for 30 days Quantity: 5 {Pre-filled_Pen_Syringe} Ordered:27-Sep-2015 Earnest Mena MD* Start 27-Sep-2015 Active LINEZOLID, 600MG (Oral Tablet) one two times daily (600 MG) Active LISINOPRIL, 5MG (Oral Tablet) 1 (one) Tablet Tablet daily for 90 days * Quantity: 90 {Tablet} Refills: 4 Ordered: Aakash Hernández MD* Start Active METFORMIN HCL, 500MG (Oral Tablet) one two times daily (500 MG) Active NAMENDA, 10MG (Oral Tablet) one at bedtime (10 MG) Active SEROQUEL, 25MG (Oral Tablet) one at bedtime (25 MG) Active SIMVASTATIN, 80MG (Oral Tablet) one-half [...] Start 22-Nov-2014 End Inactive Comments: faxed to [facility] GLYBURIDE, 5MG (Oral Tablet) daily (5 MG) Inactive HYDROCHLOROTHIAZIDE, 25MG (Oral Tablet) daily (25 MG) Inactive LANTUS SOLOSTAR, 100UNIT/ML (Subcutaneous Solution Pen-injector) 5 units units at bedtime for 90 days * Quantity: 450 {Milliliter} Refills: 4 Ordered: Imelda Mena R.N.* Start 22-Nov-2014 End Inactive Comments: rx faxed to [facility] LEVOTHYROXINE SODIUM, 75MCG (Oral Tablet) 1 (one) Tablet Tablet daily for 30 days * Quantity: 30 {Tablet} Refills: 12 Ordered:26-Nov-2014 Imelda Mena R.N.* Start End 26-Nov-2014 Inactive LISINOPRIL, 20MG (Oral Tablet) one-half tablet of 40mg daily (20 MG) Inactive LISINOPRIL, 5MG (Oral Tablet) daily (5 MG) Inactive Comments: faxed to [facility] NAMENDA XR TITRATION PACK, 7 & [...] online Completed:26-Mar-2015 INFLUENZA QUADRIVALENT VAC: FLU VACC ([id number]) Completed:27-Mar-2015 ADMINISTRATION OF INFLUENZA VIRUS VACCINE (G0008) [...] (G0009) Ordered:15-May-2014 PREVNAR 13 VALENT PNEUMOCOCCAL VACCINE (52150) Completed:07-Jun-2014 ADMINISTRATION OF INFLUENZA VACCINE (G0008) Ordered:15-May-2014 HIGH DOSE QUADRIVALENT INFLUENZA VACCINE ([id number]) Completed:07-Jun-2014 Follow up in 4 months Ordered: Follow up in 4 months Ordered:03-Aug-2013 ADMIN INFLUENZA VIRUS VAC: FLU VACC PRSV FREE INC ANTIG ([id number]) Completed: Comments: CAC order ADMINISTRATION OF INFLUENZA VIRUS VACCINE (G0008) Ordered:03-May-2013 Comments: CAC order Follow up in 4 months Ordered:16-Mar-2013 CAROTID BILATERAL US ([id number]) Ordered:09-Nov-2012 Follow up in 4 months Ordered:08-Nov-2012 ADMIN INFLUENZA VIRUS VAC: FLU VACC PRSV FREE INC ANTIG ([id number]) Ordered: ADMINISTRATION OF INFLUENZA VIRUS VACCINE (G0008) Ordered:10-May-2012 CAROTID BILATERAL US ([id number]) Ordered:15-Oct-2011 ADMINISTRATION OF INFLUENZA VIRUS VACCINE (G0008) Ordered:11-Jun-2011 FLU VACC PRSV FREE INC ANTIG ([id number]) Completed:15-Jun-2011 Chronic Kidney Failure *: chronic renal insufficiency Ordered:11-Jun-2011 Follow up in 4 months Ordered: Follow up in 4 months Ordered:28-Aug-2010 EXTREMITY STUDY (04592) Ordered:28-Aug-[address] SCAN OF LUMBAR SPINE (69221) Ordered:28-Aug-2010 ADMINISTRATION OF INFLUENZA VIRUS VACCINE (G0008) Completed:30-May-2010 FLU VACCINE, 3 YRS & >, IM ([id number]) Completed:24-Apr-2010 Catheterization, Left Heart-Skin Completed:02-Dec-2004 EKG Completed:13-Nov-2014 EKG Completed:22-Apr-2010 Flu Vaccine Completed:10-May-2012 Flu Vaccine Completed:26-Mar-2015 Pneumovax Completed:01-May-2008 Prevnar 13 Completed:15-May-2014 PSA Completed:03-Aug-2013 Comments: (3.93) PSA Completed: Comments: (3.58) Immunization Name Dates Details Fluzone Lot #: [id number] Administered on:11-Jun-2011 Comments: Site: Deltoid (Left) Influenza (3 years and up) Lot #: [id number] Administered on:24-Apr-2010 Comments: Site: Deltoid (Left) Influenza, preserv. free, enhanced immunogncty, IM Lot #: [id number] Administered on:26-Mar-2015 Comments: Site: Deltoid (Left) Influenza, preserv. free, enhanced immunogncty, IM Lot #: [id number] Administered on:03-May-2013 Comments: Site: Deltoid (Left) Influenza, preserv. free, enhanced immunogncty, IM Lot #: [id number] Administered on:15-May-2014 Comments: Site: Deltoid (Right) Pneumococcal (2 years and up) Administered on:01-May-2008 Pneumococcal conjugate vaccine, 13 valent, IM Lot #: [id number] Administered on:15-May-2014 Comments: Site: Deltoid (Left) Family [...] kg/m2 Body Surface Area Calculated 1.91 m2 1-Sep-2015 10:28 Temperature 97.3 f Comments: Method: Temporal [...] Description Value Details 22-Apr-2010 11:37 ELECTROCARDIOGRAM, COMPLETE (99957) [EKG] HI Interval: 1 mm Pending 03-Sep-2015 11:24 A1C 9.1 % (Abnormal) Range: 4.6-6.2 Comments: Consistent with diabetes. 11:24 CBC-MALE- ORDER THIS ONE! (54233) manual diff Not Indicated (Normal) mpv 10.60 [...] (Normal) Range: 4.50-10.50 11:24 Vitamin D, 25-Hydroxy (46287) Comments: Testing performed at: [facility], [address] [place] [address], [phone], Medical Technologist Blood Bank: Kike Sidhu D.O., MPHQuest VITAMIN D,25-OH,TOTAL,IA 24 ng/mL (Abnormal) Range: 30-100 Comments: Vitamin D Status 25-OH Vitamin D: Deficiency: <20 ng/mLInsufficiency: 20 - 29 ng/mLOptimal: > or=30 ng/mL For 25-OH Vitamin D testing on patients on D2-supplementation and patients for whom quantitation of D2 and D3 fractions is required, the QuestAssureD(TM)25-OH VIT D, (D2,D3), LC/MS/MS is recommended: order code 66301 (patients >2yrs). For more information on this test, go to:http:// education.[employer]/faq/XYO515(This link is being provided for informational/educational purposes only.) 11:24 PTH Intact (42532) Comments: Items in this order include: Draw Charge[i], Basic Metabolic Panel, PTH, Vitamin D, 25-Hydroxy, CBC, Hemoglobin [id number] performed at: [facility], [address] [place] , [phone], Medical Technologist Blood Bank: Kike Sidhu D.O., MPH[facility] PARATHYROID HORMONE, INTACT [...] (Normal) 28-Feb-2014 09:48 TSH (THYROID STIMULATING HORMONE) (16242) Comments: Items in this order include: Draw [...] ng/mL (Normal) Range: 0.00-4.00 11:15 Urine Microalbumin (31289) Comments: Items in this order include: Draw [...] kb. Draw Drawn (Normal) 16-Mar-2013 11:42 CK (77113) Comments: Items in this order include: Basic Metabolic Panel, Hemoglobin A1C, Draw Charge[i], ALT, CKILast Hgb A1C was ran 128 Days ago. Check by landon CKI 220 U/L (Normal) Range: 39-308 11:42 ALT (96960) Comments: Items in this order include: Basic [...] Draw Drawn (Normal) 11-Nov-2012 08:39 LIPID PANEL (29946) Comments: Items in this order include: Draw [...] include: Draw Charge[i], Basic Metabolic Panel, Hemoglobin [id number] Hgb A1C was ran 182 Days ago. Check by kb Range: 4.6-6.2 Comments: Consistent with diabetes. 11:08 BMP Comments: Items in this order include: Draw Charge[i], Basic Metabolic Panel, Hemoglobin [id number] Hgb A1C was ran 182 Days ago. [...] include: Draw Charge[i], Basic Metabolic Panel, Hemoglobin [id number] Hgb A1C was ran 182 Days ago. Check by kb Draw Drawn (Normal) 10-May-2012 11:35 TSH (THYROID STIMULATING HORMONE) (86204) Comments: Items in this order include: Draw Charge[i], Basic Metabolic Panel, Hemoglobin A1C, Urine Microalbumin, TSHLast Hgb A1C was ran 208 Days ago. Check by KB TSH 4.90 uIU/ml (Normal) Range: 0.34-5.60 11:35 Urine Microalbumin (75034) Comments: Items in this order include: Draw [...] (Normal) 11-Jun-2011 12:08 CBC-MALE- ORDER THIS ONE! (80502) Comments: Items in this order include: Hemoglobin [...] Comments: Consistent with diabetes. 16:22 Urine Microalbumin (45644) Comments: Items in this order include: Basic [...] (Normal) Range: 135-145 24-Oct-2010 10:57 CREATININE BLOOD (29408) Comments: Verbal order from Dr. Aakash Hernández; Verbal order from Dr. Aakash Hernández eGFR 52.0 mL/min/1.73m2 (Abnormal) Range: >60.0 CREAT 1.4 mg/dL (Abnormal) Range: 0.6-1.3 28-Aug-2010 12:07 TSH (THYROID STIMULATING HORMONE) (10545) TSH 5.29 uIU/ml (Normal) Range: 0.34-5.60 12:07 CBC-MALE- ORDER THIS ONE! (27032) manual diff Not Indicated (Normal) MCHC 35.4 [...] 8.82 10*3/uL (Normal) Range: 4.50-10.50 12:07 CK (54351) CK 199 U/L (Abnormal) Range: 26-190 12:07 ALT (22095) ALT 35 [iU]/L (Normal) Range: 30-65 12:07 [...] 135-145 22-Apr-2010 12:46 BASIC METABOLIC PANEL- [facility] (55932) Comments: See paper results 12:45 CBC PLATELETS & AUTO /DIFF MALE (46376) Comments: See paper results 12:12 HEMOGLOBIN GLYCLATED (HGB A1C) (41540) Comments: See paper results Treatment Plan * VENIPUNCTURE; Ordered: 02/23/2014 * LIPID PANEL (88139); Ordered: 06/15/2011 Advance Directives Encounters Medication Entry [facility] On 27-Sep-2015 12:29 to 12:35 Office Visit - Controlled diabetes mellitus (250.00 | E11.9), Kidney disease, chronic, stage III (moderate, EGFR 30-59 ml/min) (585.3 | N18.3), Benign essential hypertension (401.1 | I10), Atherosclerosis of ione coronary artery of ione heart without angina pectoris (414.01 | I25.10), [...] recent microalbumin result was mcg/mg Creatinine (64). [facility] On 03-Sep-2015 09:02 to 11:20 Office [...] recent microalbumin result was mcg/mg Creatinine (64). [facility] On 23-Jul-2015 14:42 to 16:12 Office [...] was done on 12/11/2014 (done at [facility]) and the result was 8.4 %. [...] tolerance of treatment and fair symptom control. 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 [...] tolerance of treatment and fair symptom control. 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 [facility] On 13:35 to 16:41 Office Visit [...] tolerance of treatment and fair symptom control. [facility] On 13:23 to 16:54 Office Visit - Controlled diabetes mellitus (250.00 | E11.9), Kidney disease, chronic, stage III (moderate, EGFR 30-59 ml/min) (585.3 | N18.3), Atherosclerotic heart disease of ione coronary artery without angina pectoris (414.01 | [...] lipid testing was done on 2013 ([facility]) and the results included total cholesterol 167 [...] tolerance of treatment and fair symptom control. [facility] On 26-Nov-2014 13:52 to 16:06 Historical Summary [facility] On 23-Nov-2014 10:32 to 10:37 Medication Entry - Controlled diabetes mellitus (250.00 | E11.9) [facility] On 22-Nov-2014 14:11 to 14:17 Medication Entry [facility] On 07-Jun-2014 15:01 to 15:07 Office Visit - COMBO MEDICARE HIGH DOSE INFLUENZA AND PREVNAR PNEUMOVAX ( Renamed from Need for prophylactic vaccination against Streptococcus pneumoniae (pneumococcus) and influenza) (V06.6 | Z23), Atherosclerotic heart disease of ione coronary artery without angina pectoris (414.01 | [...] lipid testing was done on 12/08/2013 (at [facility]) and the results included total cholesterol 167 [...] fat diet, aspirin, MARCUS inhibitors and statins. [facility] On 15-May-2014 14:23 to 16:08 Medication Entry [facility] On 12:04 to 12:12 Office Visit - Controlled diabetes mellitus (250.00 | E11.9), Benign essential hypertension (401.1 | I10), Atherosclerotic heart disease of ione coronary artery without angina pectoris (414.01 | [...] Hgb A1c was done on 2013 (at [facility]) and the result was 8.3 %. Most recent microalbumin was done on 12/08 and the result was mcg/mg Creatinine (64). Most recent lipid testing was done on 12/08/2013 (at [facility]) and the results included total cholesterol 167 [...] fat diet, aspirin, MARCUS inhibitors and statins. [facility] On 11:49 to 16:18 Historical Summary [facility] On 10:50 to 10:53 Office Visit - Atherosclerotic heart disease of ione coronary artery without angina pectoris (414.01 | [...] fat diet, aspirin, MARCUS inhibitors and statins. [facility] On 03-Aug-2013 08:48 to 11:10 Historical Summary [facility] On 02-Aug-2013 10:28 to 10:30 Nurse Visit - Need for prophylactic vaccination and inoculation against influenza (V04.81) [facility] On 03-May-2013 12:59 to 13:01 Office Visit - Controlled diabetes mellitus (250.00 | E11.9), Kidney disease, chronic, stage III (moderate, EGFR 30-59 ml/min) (585.3 | N18.3), Atherosclerotic heart disease of ione coronary artery without angina pectoris (414.01 | [...] fat diet, aspirin, MARCUS inhibitors and statins. [facility] On 16-Mar-2013 10:17 to 11:40 Office Visit - Benign essential hypertension (401.1 | I10), Kidney disease, chronic, stage III (GFR 30-59 ml/min) (585.3), Atherosclerotic heart disease of ione coronary artery without angina pectoris (414.01 | [...] fat diet, aspirin, MARCUS inhibitors and statins. [facility] On 08-Nov-2012 10:08 to 11:01 Office Visit - Fluzone High Dose MEDICARE VACCINE AGAINST INFLUENZA (V04.81), Type II diabetes mellitus (250.00), Hypertension, benign (401.1), Peripheral vascular disease (Renamed from Peripheral blood vessel disorder) (443.9 | I73.9) , Kidney disease, chronic, stage III (GFR 30-59 ml/min) (585.3), Atherosclerotic heart disease of ione coronary artery without angina pectoris (414.01 | [...] fat diet, aspirin, MARCUS inhibitors and statins. [facility] 10-May-2012 to 12-May-2012 Office Visit - [...] fat diet, aspirin, MARCUS inhibitors and statins. [facility] 15-Oct-2011 to 18-Oct-2011 Historical Summary [facility] On 14-Oct-2011 15:43 to 16:07 Office [...] of oral contraceptives, visual disturbances or weakness. [facility] On 11-Jun-2011 11:27 to 12:04 Historical Summary [facility] On 11-Jun-2011 08:17 to 08:20 Office [...] of oral contraceptives, visual disturbances or weakness. [facility] to Lab entry only - Diabetes mellitus (250.00) [facility] On 24-Oct-2010 10:43 to 10:45 Office [...] good tolerance of treatment and good symptom control.[facility] 28-Aug-2010 to 29-Aug-2010 Office Visit - [...] last visit. Onset was 15 year(s) ago. 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
--- OUTSIDE RECORDS SUMMARY | 2017-04-29 00:49 | XMS REPORT | Continuity of Care Document ---
Author Author [facility] Organization [facility] Address [address] [place] [address] Phone Care Team Providers Care Treasury Specialist Name Role Phone Aakash Hernández MD PP Aakash Hernández MD Unavailable Unavailable Problems Name Dates Details Acquired hypothyroidism (244.9, E03.9) Status: Active Anemia (Renamed from Absolute anemia) (285.9, D64.9) Status: Active Atherosclerosis of [place] coronary artery of [place] heart without angina pectoris (414.01, I25.10) Status: [...] online Completed:26-Mar-2015 INFLUENZA QUADRIVALENT VAC: FLU VACC ([id number]) Completed:27-Mar-2015 ADMINISTRATION OF INFLUENZA VIRUS VACCINE (G0008) [...] (G0009) Ordered:15-May-2014 PREVNAR 13 VALENT PNEUMOCOCCAL VACCINE (53674) Completed:07-Jun-2014 ADMINISTRATION OF INFLUENZA VACCINE (G0008) Ordered:15-May-2014 HIGH DOSE QUADRIVALENT INFLUENZA VACCINE ([id number]) Completed:07-Jun-2014 Follow up in 4 months Ordered: Follow up in 4 months Ordered:03-Aug-2013 ADMIN INFLUENZA VIRUS VAC: FLU VACC PRSV FREE INC ANTIG ([id number]) Completed: Comments: CAC order ADMINISTRATION OF INFLUENZA VIRUS VACCINE (G0008) Ordered:03-May-2013 Comments: CAC order Follow up in 4 months Ordered:16-Mar-2013 CAROTID BILATERAL US ([id number]) Ordered:09-Nov-2012 Follow up in 4 months Ordered:08-Nov-2012 ADMIN INFLUENZA VIRUS VAC: FLU VACC PRSV FREE INC ANTIG ([id number]) Ordered: ADMINISTRATION OF INFLUENZA VIRUS VACCINE (G0008) Ordered:10-May-2012 CAROTID BILATERAL US ([id number]) Ordered:15-Oct-2011 ADMINISTRATION OF INFLUENZA VIRUS VACCINE (G0008) Ordered:11-Jun-2011 FLU VACC PRSV FREE INC ANTIG ([id number]) Completed:15-Jun-2011 Chronic Kidney Failure *: chronic renal insufficiency Ordered:11-Jun-2011 Follow up in 4 months Ordered: Follow up in 4 months Ordered:28-Aug-2010 EXTREMITY STUDY (21584) Ordered:28-Aug-[address] SCAN OF LUMBAR SPINE (36124) Ordered:28-Aug-2010 ADMINISTRATION OF INFLUENZA VIRUS VACCINE (G0008) Completed:30-May-2010 FLU VACCINE, 3 YRS & >, IM ([id number]) Completed:24-Apr-2010 Catheterization, Left Heart-Skin Completed:02-Dec-2004 EKG Completed:13-Nov-2014 EKG Completed:22-Apr-2010 Flu Vaccine Completed:10-May-2012 Flu Vaccine Completed:26-Mar-2015 Pneumovax Completed:01-May-2008 Prevnar 13 Completed:15-May-2014 PSA Completed:03-Aug-2013 Comments: (3.93) PSA Completed: Comments: (3.58) Immunization Name Dates Details Fluzone Lot #: [id number] Administered on:11-Jun-2011 Comments: Site: Deltoid (Left) Influenza (3 years and up) Lot #: [id number] Administered on:24-Apr-2010 Comments: Site: Deltoid (Left) Influenza, preserv. free, enhanced immunogncty, IM Lot #: [id number] Administered on:26-Mar-2015 Comments: Site: Deltoid (Left) Influenza, preserv. free, enhanced immunogncty, IM Lot #: [id number] Administered on:03-May-2013 Comments: Site: Deltoid (Left) Influenza, preserv. free, enhanced immunogncty, IM Lot #: [id number] Administered on:15-May-2014 Comments: Site: Deltoid (Right) Pneumococcal (2 years and up) Administered on:01-May-2008 Pneumococcal conjugate vaccine, 13 valent, IM Lot #: [id number] Administered on:15-May-2014 Comments: Site: Deltoid (Left) Family History Name Dates Details Brother 1 Comments: healthy Status: Active Brother 2 Comments: borderline diabetes Status: Active Father Comments: 72 yo of [place] Status: Active Mother Comments: at 67 of [...] Description Value Details 22-Apr-2010 11:37 ELECTROCARDIOGRAM, COMPLETE (05410) [EKG] CA Interval: 1 mm Pending 03-Sep-2015 11:24 A1C 9.1 % (Abnormal) Range: 4.6-6.2 Comments: Consistent with diabetes. 11:24 CBC-MALE- ORDER THIS ONE! (82970) manual diff Not Indicated (Normal) mpv 10.60 [...] (Normal) Range: 4.50-10.50 11:24 Vitamin D, 25-Hydroxy (76138) Comments: [facility] performed at: [facility], [address] [place], [address], Pattern And Chain Maker: Kike Sidhu D.O., MPHQuest VITAMIN D,25-OH,TOTAL,IA 24 ng/mL (Abnormal) Range: 30-100 Comments: Vitamin D Status 25-OH Vitamin D: Deficiency: <20 ng/mLInsufficiency: 20 - 29 ng/mLOptimal: > or=30 ng/mL For 25-OH Vitamin D testing on patients on D2-supplementation and patients for whom quantitation of D2 and D3 fractions is required, the QuestAssureD(TM)25-OH VIT D, (D2,D3), LC/MS/MS is recommended: order code 15156 (patients >2yrs). For more information on this test, go to:http:// [email or web address] [email or web address]/WAO872(This link is being provided for informational/educational purposes only.) 11:24 PTH Intact (37381) Comments: Items in this order include: Draw Charge[i], Basic Metabolic Panel, PTH, Vitamin D, 25-Hydroxy, CBC, Hemoglobin [id number] performed at: [facility], [address] [place] , [address], Pattern And Chain Maker: Kike Sidhu D.O., MPH[employer] PARATHYROID HORMONE, INTACT [...] (Normal) 28-Feb-2014 09:48 TSH (THYROID STIMULATING HORMONE) ([id number]) Comments: Items in this order include: Draw [...] ng/mL (Normal) Range: 0.00-4.00 11:15 Urine Microalbumin (79341) Comments: Items in this order include: Draw [...] kb. Draw Drawn (Normal) 16-Mar-2013 11:42 CK ([id number]) Comments: Items in this order include: Basic Metabolic Panel, Hemoglobin A1C, Draw Charge[i], ALT, CKILast Hgb A1C was ran 128 Days ago. Check by landon CKI 220 U/L (Normal) Range: 39-308 11:42 ALT (05359) Comments: Items in this order include: Basic [...] Draw Drawn (Normal) 11-Nov-2012 08:39 LIPID PANEL (31401) Comments: Items in this order include: Draw [...] include: Draw Charge[i], Basic Metabolic Panel, Hemoglobin [id number] Hgb A1C was ran 182 Days ago. Check by kb Range: 4.6-6.2 Comments: Consistent with diabetes. 11:08 BMP Comments: Items in this order include: Draw Charge[i], Basic Metabolic Panel, Hemoglobin [id number] Hgb A1C was ran 182 Days ago. [...] include: Draw Charge[i], Basic Metabolic Panel, Hemoglobin E9ORuaf Hgb A1C was ran 182 Days ago. Check by kb Draw Drawn (Normal) 10-May-2012 11:35 TSH (THYROID STIMULATING HORMONE) ([id number]) Comments: Items in this order include: Draw Charge[i], Basic Metabolic Panel, Hemoglobin A1C, Urine Microalbumin, TSHLast Hgb A1C was ran 208 Days ago. Check by KB TSH 4.90 uIU/ml (Normal) Range: 0.34-5.60 11:35 Urine Microalbumin (34866) Comments: Items in this order include: Draw [...] (Normal) 11-Jun-2011 12:08 CBC-MALE- ORDER THIS ONE! (33614) Comments: Items in this order include: Hemoglobin [...] Comments: Consistent with diabetes. 16:22 Urine Microalbumin (54369) Comments: Items in this order include: Basic [...] (Normal) Range: 135-145 24-Oct-2010 10:57 CREATININE BLOOD (72047) Comments: Verbal order from Dr. Aakash Hernández; Verbal order from Dr. Aakash Hernández eGFR 52.0 mL/min/1.73m2 (Abnormal) Range: >60.0 CREAT 1.4 mg/dL (Abnormal) Range: 0.6-1.3 28-Aug-2010 12:07 TSH (THYROID STIMULATING HORMONE) (10709) TSH 5.29 uIU/ml (Normal) Range: 0.34-5.60 12:07 CBC-MALE- ORDER THIS ONE! (80525) manual diff Not Indicated (Normal) MCHC 35.4 [...] 8.82 10*3/uL (Normal) Range: 4.50-10.50 12:07 CK (76164) CK 199 U/L (Abnormal) Range: 26-190 12:07 ALT (12341) ALT 35 [iU]/L (Normal) Range: 30-65 12:07 [...] Range: 135-145 22-Apr-2010 12:46 BASIC METABOLIC PANEL- [facility] [place] ([address]10) Comments: See paper results 12:45 CBC PLATELETS & AUTO /DIFF MALE (51777) Comments: See paper results 12:12 HEMOGLOBIN GLYCLATED (HGB A1C) (91145) Comments: See paper results Treatment Plan * VENIPUNCTURE; Ordered: 02/23/2014 * LIPID PANEL (48157); Ordered: 06/15/2011 Advance Directives Encounters Medication Entry [facility] On 27-Sep-2015 12:29 to 12:35 Office Visit - Controlled diabetes mellitus (250.00 | E11.9), Kidney disease, chronic, stage III (moderate, EGFR 30-59 ml/min) (585.3 | N18.3), Benign essential hypertension (401.1 | I10), Atherosclerosis of [place] coronary artery of [place] heart without angina pectoris (414.01 | I25.10), [...] recent microalbumin result was mcg/mg Creatinine (64). [facility] On 03-Sep-2015 09:02 to 11:20 Office [...] recent microalbumin result was mcg/mg Creatinine (64). [facility] On 23-Jul-2015 14:42 to 16:12 Office [...] was done on 12/11/2014 (done at the [facility]) and the result was 8.4 %. [...] tolerance of treatment and fair symptom control. [facility] On 07-May-2015 11:15 to 12:01 Office Visit - Fluzone High Dose MEDICARE VACCINE AGAINST INFLUENZA (V04.81), Controlled diabetes mellitus (250.00 | E11.9), Kidney disease, chronic, stage III (moderate, EGFR 30-59 ml/min) (585.3 | N18.3), Benign essential hypertension (401.1 | I10), Atherosclerosis of [place] coronary artery of [place] heart without angina pectoris (414.01 | I25.10) [...] was done on 12/11/2014 (done at the [facility]) and the result was 8.4 %. [...] tolerance of treatment and fair symptom control. [facility] On 26-Mar-2015 08:43 to 11:48 Office Visit - Controlled diabetes mellitus (250.00 | E11.9), Atherosclerosis of [place] coronary artery of [place] heart without angina pectoris (414.01 | I25.10), [...] tolerance of treatment and fair symptom control. [facility] On 13:35 to 16:41 Office Visit [...] tolerance of treatment and fair symptom control. [facility] On 13:23 to 16:54 Office Visit - Controlled diabetes mellitus (250.00 | E11.9), Kidney disease, chronic, stage III (moderate, EGFR 30-59 ml/min) (585.3 | N18.3), Atherosclerotic heart disease of [place] coronary artery without angina pectoris (414.01 | I25.10), Acquired hypothyroidism (244.9 | E03.9), Benign essential hypertension (401.1 | I10), Senile dementia, without behavioral disturbance ( 290.0 | F03.90) Encounter Reason: Transition into care - The patient is transitioning into care from a hospital (dismissed from [facility] on 11/17/2014.) and a summary of care was reviewed ., [ADDITIONAL REASON] Diabetes Type II, Follow Up - The last clinic visit was 9 day(s) ago (dismissed from [facility] on 11/17/2014.). Symptoms do not include [...] lipid testing was done on 2013 (at [facility]) and the results included total cholesterol 167 [...] tolerance of treatment and fair symptom control. [facility] On 26-Nov-2014 13:52 to 16:06 Historical Summary [facility] On 23-Nov-2014 10:32 to 10:37 Medication Entry - Controlled diabetes mellitus (250.00 | E11.9) [facility] On 22-Nov-2014 14:11 to 14:17 Medication Entry [facility] On 07-Jun-2014 15:01 to 15:07 Office Visit - COMBO MEDICARE HIGH DOSE INFLUENZA AND PREVNAR PNEUMOVAX ( Renamed from Need for prophylactic vaccination against Streptococcus pneumoniae (pneumococcus) and influenza) (V06.6 | Z23), Atherosclerotic heart disease of [place] coronary artery without angina pectoris (414.01 | [...] lipid testing was done on 12/08/2013 (at [facility]) and the results included total cholesterol 167 [...] fat diet, aspirin, MARCUS inhibitors and statins. [facility] On 15-May-2014 14:23 to 16:08 Medication Entry [facility] On 12:04 to 12:12 Office Visit - Controlled diabetes mellitus (250.00 | E11.9), Benign essential hypertension (401.1 | I10), Atherosclerotic heart disease of [place] coronary artery without angina pectoris (414.01 | [...] Hgb A1c was done on 2013 (at [facility]) and the result was 8.3 %. Most recent microalbumin was done on 12/08 and the result was mcg/mg Creatinine (64). Most recent lipid testing was done on 12/08/2013 (at [facility]) and the results included total cholesterol 167 [...] fat diet, aspirin, MARCUS inhibitors and statins. [facility] On 11:49 to 16:18 Historical Summary [facility] On 10:50 to 10:53 Office Visit - Atherosclerotic heart disease of [place] coronary artery without angina pectoris (414.01 | [...] fat diet, aspirin, MARCUS inhibitors and statins. [facility] On 03-Aug-2013 08:48 to 11:10 Historical Summary [facility] On 02-Aug-2013 10:28 to 10:30 Nurse Visit - Need for prophylactic vaccination and inoculation against influenza (V04.81) [facility] On 03-May-2013 12:59 to 13:01 Office Visit - Controlled diabetes mellitus (250.00 | E11.9), Kidney disease, chronic, stage III (moderate, EGFR 30-59 ml/min) (585.3 | N18.3), Atherosclerotic heart disease of [place] coronary artery without angina pectoris (414.01 | [...] fat diet, aspirin, MARCUS inhibitors and statins. [facility] On 16-Mar-2013 10:17 to 11:40 Office Visit - Benign essential hypertension (401.1 | I10), Kidney disease, chronic, stage III (GFR 30-59 ml/min) (585.3), Atherosclerotic heart disease of [place] coronary artery without angina pectoris (414.01 | [...] fat diet, aspirin, MARCUS inhibitors and statins. [facility] On 08-Nov-2012 10:08 to 11:01 Office Visit - Fluzone High Dose MEDICARE VACCINE AGAINST INFLUENZA (V04.81), Type II diabetes mellitus (250.00), Hypertension, benign (401.1), Peripheral vascular disease (Renamed from Peripheral blood vessel disorder) (443.9 | I73.9) , Kidney disease, chronic, stage III (GFR 30-59 ml/min) (585.3), Atherosclerotic heart disease of [place] coronary artery without angina pectoris (414.01 | [...] fat diet, aspirin, MARCUS inhibitors and statins. [facility] 10-May-2012 to 12-May-2012 Office Visit - [...] fat diet, aspirin, MARCUS inhibitors and statins. [facility] 15-Oct-2011 to 18-Oct-2011 Historical Summary [facility] On 14-Oct-2011 15:43 to 16:07 Office [...] of oral contraceptives, visual disturbances or weakness. [facility] On 11-Jun-2011 11:27 to 12:04 Historical Summary [facility] On 11-Jun-2011 08:17 to 08:20 Office [...] of oral contraceptives, visual disturbances or weakness. [facility] to Lab entry only - Diabetes mellitus (250.00) [facility] On 24-Oct-2010 10:43 to 10:45 Office [...] good tolerance of treatment and good symptom control.[facility] 28-Aug-2010 to 29-Aug-2010 Office Visit - [...] myocardial infarction and sudden (Dad suddenly of [place] at the age of 72.). Pertinent social [...] last visit. Onset was 15 year(s) ago. [facility] 24-Apr-2010 to 30-Apr-2010 Lab entry only - Diabetes mellitus type 1 (250.01), Hypertension, benign ( 401.1), Hypercholesterolemia (272.0) [facility] On 22-Apr-2010 12:43 to 14:00 Lab entry only - Diabetes mellitus type 1 (250.01) [facility] On 22-Apr-2010 12:09 to 12:13 Historical Summary - Pre-operative examination (V72.84), Coronary atherosclerosis (414.00) [facility] On 22-Apr-2010 11:35 to 12:09 Insurance * Chi Lowry ; a guarantor * Medicare WPS * BS Plan 65
--- OUTSIDE RECORDS SUMMARY | 2017-04-29 00:50 | XMS REPORT | Continuity of Care Document ---
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.01, I25.10) Status: [...] Start 22-Nov-2014 End Inactive Comments: faxed to [facility] GLYBURIDE, 5MG (Oral Tablet) - Historical Medication daily (5 MG) Inactive HYDROCHLOROTHIAZIDE, 25MG (Oral Tablet) - Historical Medication daily (25 MG) Inactive LANTUS SOLOSTAR, 100UNIT/ML (Subcutaneous Solution Pen-injector) 5 units units at bedtime for 90 days * Quantity: 450 {Milliliter} Refills: 4 Ordered: Imelda Mena R.N.* Start 22-Nov-2014 End Inactive Comments: rx faxed to [facility] LEVOTHYROXINE SODIUM, 75MCG (Oral Tablet) 1 (one) Tablet Tablet daily for 30 days * Quantity: 30 {Tablet} Refills: 12 Ordered:26-Nov-2014 Imelda Mena R.N.* Start End 26-Nov-2014 Inactive LISINOPRIL, 20MG (Oral Tablet) - Historical Medication one-half tablet of 40mg daily (20 MG) Inactive LISINOPRIL, 5MG (Oral Tablet) - Historical Medication daily (5 MG) Inactive Comments: faxed to [facility] NAMENDA XR TITRATION PACK, 7 & [...] online Completed:26-Mar-2015 INFLUENZA QUADRIVALENT VAC: FLU VACC ([id number]) Ordered:26-Mar-2015 ADMINISTRATION OF INFLUENZA VIRUS VACCINE (G0008) [...] (G0009) Ordered:15-May-2014 PREVNAR 13 VALENT PNEUMOCOCCAL VACCINE ([id number]) Completed:07-Jun-2014 ADMINISTRATION OF INFLUENZA VACCINE (G0008) Ordered:15-May-2014 HIGH DOSE QUADRIVALENT INFLUENZA VACCINE ([id number]) Completed:07-Jun-2014 Follow up in 4 months Ordered: Follow up in 4 months Ordered:03-Aug-2013 ADMIN INFLUENZA VIRUS VAC: FLU VACC PRSV FREE INC ANTIG ([id number]) Completed: Comments: CAC order ADMINISTRATION OF INFLUENZA VIRUS VACCINE (G0008) Ordered:03-May-2013 Comments: CAC order Follow up in 4 months Ordered:16-Mar-2013 CAROTID BILATERAL US ([id number]) Ordered:09-Nov-2012 Follow up in 4 months Ordered:08-Nov-2012 ADMIN INFLUENZA VIRUS VAC: FLU VACC PRSV FREE INC ANTIG ([id number]) Ordered: ADMINISTRATION OF INFLUENZA VIRUS VACCINE (G0008) Ordered:10-May-2012 CAROTID BILATERAL US ([id number]) Ordered:15-Oct-2011 ADMINISTRATION OF INFLUENZA VIRUS VACCINE (G0008) Ordered:11-Jun-2011 FLU VACC PRSV FREE INC ANTIG ([id number]) Completed:15-Jun-2011 Chronic Kidney Failure *: chronic renal insufficiency Ordered:11-Jun-2011 Follow up in 4 months Ordered: Follow up in 4 months Ordered:28-Aug-2010 EXTREMITY STUDY ([id number]) Ordered:28-Aug-[address] SCAN OF LUMBAR SPINE ([id number]) Ordered:28-Aug-2010 ADMINISTRATION OF INFLUENZA VIRUS VACCINE (G0008) Completed:30-May-2010 FLU VACCINE, 3 YRS & >, IM ([id number]) Completed:24-Apr-2010 Catheterization, Left Heart-Skin Completed:02-Dec-2004 EKG Completed:22-Apr-2010 EKG Completed:13-Nov-2014 Flu Vaccine Completed:10-May-2012 Flu Vaccine Completed:15-May-2014 Pneumovax Completed:01-May-2008 Prevnar 13 Completed:15-May-2014 PSA Completed: Comments: (3.58) PSA Completed:03-Aug-2013 Comments: (3.93) Immunization Name Dates Details Fluzone Lot #: [id number] Administered on:11-Jun-2011 Comments: Site: Deltoid (Left) Influenza (3 years and up) Lot #: [id number] Administered on:24-Apr-2010 Comments: Site: Deltoid (Left) Influenza, preserv. free, enhanced immunogncty, IM Lot #: [id number] Administered on:03-May-2013 Comments: Site: Deltoid (Left) Influenza, preserv. free, enhanced immunogncty, IM Lot #: [id number] Administered on:15-May-2014 Comments: Site: Deltoid (Right) Pneumococcal (2 years and up) Administered on:01-May-2008 Pneumococcal conjugate vaccine, 13 valent, IM Lot #: [id number] Administered on:15-May-2014 Comments: Site: Deltoid (Left) Family History Name Dates Details Brother 1 Comments: healthy Status: Active Brother 2 Comments: borderline diabetes Status: Active Father Comments: 72 yo of [place] Status: Active Mother Comments: at 67 of [...] Description Value Details 22-Apr-2010 11:37 ELECTROCARDIOGRAM, COMPLETE (15510) [EKG] CT Interval: 1 mm Pending 26-Nov-2014 15:59 BMP [...] (Normal) 28-Feb-2014 09:48 TSH (THYROID STIMULATING HORMONE) (58402) Comments: Items in this order include: Draw [...] ng/mL (Normal) Range: 0.00-4.00 11:15 Urine Microalbumin (01646) Comments: Items in this order include: Draw [...] kb. Draw Drawn (Normal) 16-Mar-2013 11:42 CK ([id number]) Comments: Items in this order include: Basic Metabolic Panel, Hemoglobin A1C, Draw Charge[i], ALT, CKILast Hgb A1C was ran 128 Days ago. Check by landon CKI 220 U/L (Normal) Range: 39-308 11:42 ALT ([id number]) Comments: Items in this order include: Basic [...] Draw Drawn (Normal) 11-Nov-2012 08:39 LIPID PANEL (19888) Comments: Items in this order include: Draw [...] include: Draw Charge[i], Basic Metabolic Panel, Hemoglobin [id number] Hgb A1C was ran 182 Days ago. Check by kb Range: 4.6-6.2 Comments: Consistent with diabetes. 11:08 BMP Comments: Items in this order include: Draw Charge[i], Basic Metabolic Panel, Hemoglobin [id number] Hgb A1C was ran 182 Days ago. [...] include: Draw Charge[i], Basic Metabolic Panel, Hemoglobin [id number] Hgb A1C was ran 182 Days ago. Check by kb Draw Drawn (Normal) 10-May-2012 11:35 TSH (THYROID STIMULATING HORMONE) (01389) Comments: Items in this order include: Draw Charge[i], Basic Metabolic Panel, Hemoglobin A1C, Urine Microalbumin, TSHLast Hgb A1C was ran 208 Days ago. Check by KB TSH 4.90 uIU/ml (Normal) Range: 0.34-5.60 11:35 Urine Microalbumin (61368) Comments: Items in this order include: Draw [...] (Normal) 11-Jun-2011 12:08 CBC-MALE- ORDER THIS ONE! (56782) Comments: Items in this order include: Hemoglobin [...] Comments: Consistent with diabetes. 16:22 Urine Microalbumin (32362) Comments: Items in this order include: Basic [...] (Normal) Range: 135-145 24-Oct-2010 10:57 CREATININE BLOOD ([id number]) Comments: Verbal order from Dr. Aakash Hernández; Verbal order from Dr. Aakash Hernández eGFR 52.0 mL/min/1.73m2 (Abnormal) Range: >60.0 CREAT 1.4 mg/dL (Abnormal) Range: 0.6-1.3 28-Aug-2010 12:07 TSH (THYROID STIMULATING HORMONE) (53656) TSH 5.29 uIU/ml (Normal) Range: 0.34-5.60 12:07 CBC-MALE- ORDER THIS ONE! (73890) manual diff Not Indicated (Normal) MCHC 35.4 [...] 8.82 10*3/uL (Normal) Range: 4.50-10.50 12:07 CK (19688) CK 199 U/L (Abnormal) Range: 26-190 12:07 ALT (60413) ALT 35 [iU]/L (Normal) Range: 30-65 12:07 [...] Range: 135-145 22-Apr-2010 12:46 BASIC METABOLIC PANEL- [facility] [place] (80908) Comments: See paper results 12:45 CBC PLATELETS & AUTO /DIFF MALE (74704) Comments: See paper results 12:12 HEMOGLOBIN GLYCLATED (HGB A1C) (36270) Comments: See paper results Treatment Plan * VENIPUNCTURE; Ordered: 02/23/2014 * LIPID PANEL (32734); Ordered: 06/15/2011 Advance Directives Encounters Office Visit - Fluzone High Dose MEDICARE VACCINE AGAINST INFLUENZA (V04.81), Controlled diabetes mellitus (250.00 | E11.9), Kidney disease, chronic, stage III (moderate, EGFR 30-59 ml/min) (585.3 | N18.3), Benign essential hypertension (401.1 | I10), Atherosclerosis 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 [facility] On 13:35 to 16:41 [...] tolerance of treatment and fair symptom control. [facility] On 13:23 to 16:54 Office Visit - Controlled diabetes mellitus (250.00 | E11.9), Kidney disease, chronic, stage III (moderate, EGFR 30-59 ml/min) (585.3 | N18.3), Atherosclerotic heart disease of alutiiq coronary artery without angina pectoris (414.01 | I25.10), Acquired hypothyroidism (244.9 | E03.9), Benign essential hypertension (401.1 | I10), Senile dementia, without behavioral disturbance ( 290.0 | F03.90) Encounter Reason: Transition into care - The patient is transitioning into care from a hospital (dismissed from [facility] on 11/17/2014.) and a summary of care was reviewed ., [ADDITIONAL REASON] Diabetes Type II, Follow Up - The last clinic visit was 9 day(s) ago (dismissed from [facility] on 11/17/2014.). Symptoms do not include polydipsia, [...] tolerance of treatment and fair symptom control. [facility] On 26-Nov-2014 13:52 to 16:06 Historical Summary [facility] On 23-Nov-2014 10:32 to 10:37 Medication Entry - Controlled diabetes mellitus (250.00 | E11.9) [facility] On 22-Nov-2014 14:11 to 14:17 Medication Entry [facility] On 07-Jun-2014 15:01 to 15:07 Office Visit - COMBO MEDICARE HIGH DOSE INFLUENZA AND PREVNAR PNEUMOVAX ( Renamed from Need for prophylactic vaccination against Streptococcus pneumoniae (pneumococcus) and influenza) (V06.6 | Z23), Atherosclerotic heart disease of alutiiq coronary artery without angina pectoris (414.01 | [...] fat diet, aspirin, MARCUS inhibitors and statins. [facility] On 15-May-2014 14:23 to 16:08 Medication Entry [facility] On 12:04 to 12:12 Office Visit - Controlled diabetes mellitus (250.00 | E11.9), Benign essential hypertension (401.1 | I10), Atherosclerotic heart disease of alutiiq coronary artery without angina pectoris (414.01 | [...] fat diet, aspirin, MARCUS inhibitors and statins. [facility] On 11:49 to 16:18 Historical Summary [facility] On 10:50 to 10:53 Office Visit - Atherosclerotic heart disease of alutiiq coronary artery without angina pectoris (414.01 | [...] fat diet, aspirin, MARCUS inhibitors and statins. [facility] On 03-Aug-2013 08:48 to 11:10 Historical Summary [facility] On 02-Aug-2013 10:28 to 10:30 Nurse Visit - Need for prophylactic vaccination and inoculation against influenza (V04.81) [facility] On 03-May-2013 12:59 to 13:01 Office Visit - Controlled diabetes mellitus (250.00 | E11.9), Kidney disease, chronic, stage III (moderate, EGFR 30-59 ml/min) (585.3 | N18.3), Atherosclerotic heart disease of alutiiq coronary artery without angina pectoris (414.01 | [...] fat diet, aspirin, MARCUS inhibitors and statins. [facility] On 16-Mar-2013 10:17 to 11:40 Office Visit - Benign essential hypertension (401.1 | I10), Kidney disease, chronic, stage III (GFR 30-59 ml/min) (585.3), Atherosclerotic heart disease of alutiiq coronary artery without angina pectoris (414.01 | [...] fat diet, aspirin, MARCUS inhibitors and statins. [facility] On 08-Nov-2012 10:08 to 11:01 Office Visit - Fluzone High Dose MEDICARE VACCINE AGAINST INFLUENZA (V04.81), Type II diabetes mellitus (250.00), Hypertension, benign (401.1), Peripheral vascular disease (Renamed from Peripheral blood vessel disorder) (443.9 | I73.9) , Kidney disease, chronic, stage III (GFR 30-59 ml/min) (585.3), Atherosclerotic heart disease of alutiiq coronary artery without angina pectoris (414.01 | [...] fat diet, aspirin, MARCUS inhibitors and statins. [facility] 10-May-2012 to 12-May-2012 Office [...] fat diet, aspirin, MARCUS inhibitors and statins. [facility] 15-Oct-2011 to 18-Oct-2011 Historical Summary [facility] On 14-Oct-2011 15:43 to [...] of oral contraceptives, visual disturbances or weakness. [facility] On 11-Jun-2011 11:27 to 12:04 Historical Summary [facility] On 11-Jun-2011 08:17 to [...] of oral contraceptives, visual disturbances or weakness. [facility] to Lab entry only - Diabetes mellitus (250.00) [facility] On 24-Oct-2010 10:43 to [...] good tolerance of treatment and good symptom control.[facility] 28-Aug-2010 to 29-Aug-2010 Office [...] myocardial infarction and sudden (Dad suddenly of [place] at the age of 72.). Pertinent social [...] last visit. Onset was 15 year(s) ago. [facility] 24-Apr-2010 to 30-Apr-2010 Lab entry only - Diabetes mellitus type 1 (250.01), Hypertension, benign ( 401.1), Hypercholesterolemia (272.0) [facility] On 22-Apr-2010 12:43 to 14:00 Lab entry only - Diabetes mellitus type 1 (250.01) [facility] On 22-Apr-2010 12:09 to 12:13 Historical Summary - Pre-operative examination (V72.84), Coronary atherosclerosis (414.00) [facility] On 22-Apr-2010 11:35 to 12:09 Insurance * Chi Lowry ; chuck guarantor * Medicare WPS * BS Plan 65
--- OUTSIDE RECORDS SUMMARY | 2017-04-29 00:52 | XMS REPORT | Continuity of Care Document ---
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.01, I25.10) Status: [...] Start 22-Nov-2014 End Inactive Comments: faxed to [facility] GLYBURIDE, 5MG (Oral Tablet) - Historical Medication daily (5 MG) Inactive HYDROCHLOROTHIAZIDE, 25MG (Oral Tablet) - Historical Medication daily (25 MG) Inactive LANTUS SOLOSTAR, 100UNIT/ML (Subcutaneous Solution Pen-injector) 5 units units at bedtime for 90 days * Quantity: 450 {Milliliter} Refills: 4 Ordered: Imelda Mena R.N.* Start 22-Nov-2014 End Inactive Comments: rx faxed to [facility] LEVOTHYROXINE SODIUM, 75MCG (Oral Tablet) 1 (one) Tablet Tablet daily for 30 days * Quantity: 30 {Tablet} Refills: 12 Ordered:26-Nov-2014 Imelda Mena R.N.* Start End 26-Nov-2014 Inactive LISINOPRIL, 20MG (Oral Tablet) - Historical Medication one-half tablet of 40mg daily (20 MG) Inactive LISINOPRIL, 5MG (Oral Tablet) - Historical Medication daily (5 MG) Inactive Comments: faxed to [facility] NAMENDA XR TITRATION PACK, 7 & [...] online Completed:26-Mar-2015 INFLUENZA QUADRIVALENT VAC: FLU VACC ([id number]) Completed:27-Mar-2015 ADMINISTRATION OF INFLUENZA VIRUS VACCINE (G0008) [...] (G0009) Ordered:15-May-2014 PREVNAR 13 VALENT PNEUMOCOCCAL VACCINE ([id number]) Completed:07-Jun-2014 ADMINISTRATION OF INFLUENZA VACCINE (G0008) Ordered:15-May-2014 HIGH DOSE QUADRIVALENT INFLUENZA VACCINE ([id number]) Completed:07-Jun-2014 Follow up in 4 months Ordered: Follow up in 4 months Ordered:03-Aug-2013 ADMIN INFLUENZA VIRUS VAC: FLU VACC PRSV FREE INC ANTIG ([id number]) Completed: Comments: CAC order ADMINISTRATION OF INFLUENZA VIRUS VACCINE (G0008) Ordered:03-May-2013 Comments: CAC order Follow up in 4 months Ordered:16-Mar-2013 CAROTID BILATERAL US ([id number]) Ordered:09-Nov-2012 Follow up in 4 months Ordered:08-Nov-2012 ADMIN INFLUENZA VIRUS VAC: FLU VACC PRSV FREE INC ANTIG ([id number]) Ordered: ADMINISTRATION OF INFLUENZA VIRUS VACCINE (G0008) Ordered:10-May-2012 CAROTID BILATERAL US ([id number]) Ordered:15-Oct-2011 ADMINISTRATION OF INFLUENZA VIRUS VACCINE (G0008) Ordered:11-Jun-2011 FLU VACC PRSV FREE INC ANTIG ([id number]) Completed:15-Jun-2011 Chronic Kidney Failure *: chronic renal insufficiency Ordered:11-Jun-2011 Follow up in 4 months Ordered: Follow up in 4 months Ordered:28-Aug-2010 EXTREMITY STUDY ([id number]) Ordered:28-Aug-[address] SCAN OF LUMBAR SPINE ([id number]) Ordered:28-Aug-2010 ADMINISTRATION OF INFLUENZA VIRUS VACCINE (G0008) Completed:30-May-2010 FLU VACCINE, 3 YRS & >, IM ([id number]) Completed:24-Apr-2010 Catheterization, Left Heart-Skin Completed:02-Dec-2004 EKG Completed:13-Nov-2014 EKG Completed:22-Apr-2010 Flu Vaccine Completed:10-May-2012 Flu Vaccine Completed:26-Mar-2015 Pneumovax Completed:01-May-2008 Prevnar 13 Completed:15-May-2014 PSA Completed: Comments: (3.58) PSA Completed:03-Aug-2013 Comments: (3.93) Immunization Name Dates Details Fluzone Lot #: [id number] Administered on:11-Jun-2011 Comments: Site: Deltoid (Left) Influenza (3 years and up) Lot #: [id number] Administered on:24-Apr-2010 Comments: Site: Deltoid (Left) Influenza, preserv. free, enhanced immunogncty, IM Lot #: [id number] Administered on:26-Mar-2015 Comments: Site: Deltoid (Left) Influenza, preserv. free, enhanced immunogncty, IM Lot #: [id number] Administered on:03-May-2013 Comments: Site: Deltoid (Left) Influenza, preserv. free, enhanced immunogncty, IM Lot #: [id number] Administered on:15-May-2014 Comments: Site: Deltoid (Right) Pneumococcal (2 years and up) Administered on:01-May-2008 Pneumococcal conjugate vaccine, 13 valent, IM Lot #: [id number] Administered on:15-May-2014 Comments: Site: Deltoid (Left) Family History Name Dates Details Brother 1 Comments: healthy Status: Active Brother 2 Comments: borderline diabetes Status: Active Father Comments: 72 yo of [place] Status: Active Mother Comments: at 67 of [...] Description Value Details 22-Apr-2010 11:37 ELECTROCARDIOGRAM, COMPLETE (25400) [EKG] [place] Interval: 1 mm Pending 07-May-2015 11:58 A1C [...] (Normal) 28-Feb-2014 09:48 TSH (THYROID STIMULATING HORMONE) ([id number]) Comments: Items in this order include: Draw [...] ng/mL (Normal) Range: 0.00-4.00 11:15 Urine Microalbumin ([id number]) Comments: Items in this order include: Draw [...] kb. Draw Drawn (Normal) 16-Mar-2013 11:42 CK ([id number]) Comments: Items in this order include: Basic Metabolic Panel, Hemoglobin A1C, Draw Charge[i], ALT, CKILast Hgb A1C was ran 128 Days ago. Check by kb CKI 220 U/L (Normal) Range: 39-308 11:42 ALT ([id number]) Comments: Items in this order include: Basic [...] Draw Drawn (Normal) 11-Nov-2012 08:39 LIPID PANEL (17723) Comments: Items in this order include: Draw [...] include: Draw Charge[i], Basic Metabolic Panel, Hemoglobin [id number] Hgb A1C was ran 182 Days ago. Check by kb Range: 4.6-6.2 Comments: Consistent with diabetes. 11:08 BMP Comments: Items in this order include: Draw Charge[i], Basic Metabolic Panel, Hemoglobin [id number] Hgb A1C was ran 182 Days ago. [...] include: Draw Charge[i], Basic Metabolic Panel, Hemoglobin [id number] Hgb A1C was ran 182 Days ago. Check by kb Draw Drawn (Normal) 10-May-2012 11:35 TSH (THYROID STIMULATING HORMONE) ([id number]) Comments: Items in this order include: Draw Charge[i], Basic Metabolic Panel, Hemoglobin A1C, Urine Microalbumin, TSHLast Hgb A1C was ran 208 Days ago. Check by KB TSH 4.90 uIU/ml (Normal) Range: 0.34-5.60 11:35 Urine Microalbumin (30608) Comments: Items in this order include: Draw [...] (Normal) 11-Jun-2011 12:08 CBC-MALE- ORDER THIS ONE! (11668) Comments: Items in this order include: Hemoglobin [...] Comments: Consistent with diabetes. 16:22 Urine Microalbumin (33253) Comments: Items in this order include: Basic [...] (Normal) Range: 135-145 24-Oct-2010 10:57 CREATININE BLOOD (94854) Comments: Verbal order from Dr. Aakash Hernández; Verbal order from Dr. Aakash Hernández eGFR 52.0 mL/min/1.73m2 (Abnormal) Range: >60.0 CREAT 1.4 mg/dL (Abnormal) Range: 0.6-1.3 28-Aug-2010 12:07 TSH (THYROID STIMULATING HORMONE) (31389) TSH 5.29 uIU/ml (Normal) Range: 0.34-5.60 12:07 CBC-MALE- ORDER THIS ONE! (37920) manual diff Not Indicated (Normal) MCHC 35.4 [...] 8.82 10*3/uL (Normal) Range: 4.50-10.50 12:07 CK (29341) CK 199 U/L (Abnormal) Range: 26-190 12:07 ALT (08546) ALT 35 [iU]/L (Normal) Range: 30-65 12:07 [...] [facility] (27882) Comments: See paper results 12:45 CBC PLATELETS & AUTO /DIFF MALE (05780) Comments: See paper results 12:12 HEMOGLOBIN GLYCLATED (HGB A1C) (18998) Comments: See paper results Treatment Plan * VENIPUNCTURE; Ordered: 02/23/2014 * LIPID PANEL (50093); Ordered: 06/15/2011 Advance Directives Encounters Office Visit [...] was done on 12/11/2014 (done at the [facility]) and the result was 8.4 %. Most [...] tolerance of treatment and fair symptom control. [facility] On 07-May-2015 11:15 to 12:01 Office Visit - Fluzone High Dose MEDICARE VACCINE AGAINST INFLUENZA (V04.81), Controlled diabetes mellitus (250.00 | E11.9), Kidney disease, chronic, stage III (moderate, EGFR 30-59 ml/min) (585.3 | N18.3), Benign essential hypertension (401.1 | I10), Atherosclerosis of [place] coronary artery of [place] heart without angina pectoris (414.01 | I25.10) [...] was done on 12/11/2014 (done at the [facility]) and the result was 8.4 %. Most [...] tolerance of treatment and fair symptom control. [facility] On 26-Mar-2015 08:43 to 11:48 Office Visit - Controlled diabetes mellitus (250.00 | E11.9), Atherosclerosis of [place] coronary artery of [place] heart without angina pectoris (414.01 | I25.10), [...] tolerance of treatment and fair symptom control. [facility] On 13:35 to 16:41 Office Visit [...] tolerance of treatment and fair symptom control. [facility] On 13:23 to 16:54 Office Visit - Controlled diabetes mellitus (250.00 | E11.9), Kidney disease, chronic, stage III (moderate, EGFR 30-59 ml/min) (585.3 | N18.3), Atherosclerotic heart disease of [place] coronary artery without angina pectoris (414.01 | I25.10), Acquired hypothyroidism (244.9 | E03.9), Benign essential hypertension (401.1 | I10), Senile dementia, without behavioral disturbance ( 290.0 | F03.90) Encounter Reason: Transition into care - The patient is transitioning into care from a hospital (dismissed from [facility] on 11/17/2014.) and a summary of care was reviewed ., [ADDITIONAL REASON] Diabetes Type II, Follow Up - The last clinic visit was 9 day(s) ago (dismissed from [facility] on 11/17/2014.). Symptoms do not [...] lipid testing was done on 2013 (at [place]) and the results included total cholesterol 167 [...] tolerance of treatment and fair symptom control. [facility] On 26-Nov-2014 13:52 to 16:06 Historical Summary [facility] On 23-Nov-2014 10:32 to 10:37 Medication Entry - Controlled diabetes mellitus (250.00 | E11.9) [facility] On 22-Nov-2014 14:11 to 14:17 Medication Entry [facility] On 07-Jun-2014 15:01 to 15:07 Office Visit - COMBO MEDICARE HIGH DOSE INFLUENZA AND PREVNAR PNEUMOVAX ( Renamed from Need for prophylactic vaccination against Streptococcus pneumoniae (pneumococcus) and influenza) (V06.6 | Z23), Atherosclerotic heart disease of [place] coronary artery without angina pectoris (414.01 | [...] lipid testing was done on 12/08/2013 (at [place]) and the results included total cholesterol 167 [...] fat diet, aspirin, MARCUS inhibitors and statins. [facility] On 15-May-2014 14:23 to 16:08 Medication Entry [facility] On 12:04 to 12:12 Office Visit - Controlled diabetes mellitus (250.00 | E11.9), Benign essential hypertension (401.1 | I10), Atherosclerotic heart disease of [place] coronary artery without angina pectoris (414.01 | [...] Hgb A1c was done on 2013 (at [place]) and the result was 8.3 %. Most recent microalbumin was done on 12/08 and the result was mcg/mg Creatinine (64). Most recent lipid testing was done on 12/08/2013 (at [place]) and the results included total cholesterol 167 [...] fat diet, aspirin, MARCUS inhibitors and statins. [facility] On 11:49 to 16:18 Historical Summary [facility] On 10:50 to 10:53 Office Visit - Atherosclerotic heart disease of [place] coronary artery without angina pectoris (414.01 | [...] fat diet, aspirin, MARCUS inhibitors and statins. [facility] On 03-Aug-2013 08:48 to 11:10 Historical Summary [facility] On 02-Aug-2013 10:28 to 10:30 Nurse Visit - Need for prophylactic vaccination and inoculation against influenza (V04.81) [facility] On 03-May-2013 12:59 to 13:01 Office Visit - Controlled diabetes mellitus (250.00 | E11.9), Kidney disease, chronic, stage III (moderate, EGFR 30-59 ml/min) (585.3 | N18.3), Atherosclerotic heart disease of [place] coronary artery without angina pectoris (414.01 | [...] fat diet, aspirin, MARCUS inhibitors and statins. [facility] On 16-Mar-2013 10:17 to 11:40 Office Visit - Benign essential hypertension (401.1 | I10), Kidney disease, chronic, stage III (GFR 30-59 ml/min) (585.3), Atherosclerotic heart disease of [place] coronary artery without angina pectoris (414.01 | [...] includes basal insulin, metformin, glyburide, dyslipidemia medications, AMRCUS inhibitor, angiotensin receptor jack, dietary modification and [...] fat diet, aspirin, MARCUS inhibitors and statins. [facility] On 08-Nov-2012 10:08 to 11:01 Office Visit - Fluzone High Dose MEDICARE VACCINE AGAINST INFLUENZA (V04.81), Type II diabetes mellitus (250.00), Hypertension, benign (401.1), Peripheral vascular disease (Renamed from Peripheral blood vessel disorder) (443.9 | I73.9) , Kidney disease, chronic, stage III (GFR 30-59 ml/min) (585.3), Atherosclerotic heart disease of [place] coronary artery without angina pectoris (414.01 | [...] fat diet, aspirin, MARCUS inhibitors and statins. [facility] 10-May-2012 to 12-May-2012 Office Visit - [...] fat diet, aspirin, MARCUS inhibitors and statins. [facility] 15-Oct-2011 to 18-Oct-2011 Historical Summary [facility] On 14-Oct-2011 15:43 to 16:07 Office [...] of oral contraceptives, visual disturbances or weakness. [facility] On 11-Jun-2011 11:27 to 12:04 Historical Summary [facility] On 11-Jun-2011 08:17 to 08:20 Office [...] of oral contraceptives, visual disturbances or weakness. [facility] to Lab entry only - Diabetes mellitus (250.00) [facility] On 24-Oct-2010 10:43 to 10:45 Office [...] good tolerance of treatment and good symptom control.[facility] 28-Aug-2010 to 29-Aug-2010 Office Visit - [...] myocardial infarction and sudden (Dad suddenly of [place] at the age of 72.). Pertinent social [...] last visit. Onset was 15 year(s) ago. [facility] 24-Apr-2010 to 30-Apr-2010 Lab entry only - Diabetes mellitus type 1 (250.01), Hypertension, benign ( 401.1), Hypercholesterolemia (272.0) [facility] On 22-Apr-2010 12:43 to 14:00 Lab entry only - Diabetes mellitus type 1 (250.01) [facility] On 22-Apr-2010 12:09 to 12:13 Historical Summary - Pre-operative examination (V72.84), Coronary atherosclerosis (414.00) [facility] On 22-Apr-2010 11:35 to 12:09 Insurance * Chi Lowry ; a guarantor * Medicare WPS * BS Plan 65
--- OUTSIDE RECORDS SUMMARY | 2017-04-29 00:53 | XMS REPORT | Continuity of Care Document ---
Author Author [facility] Organization [facility] Address [address] [place] [address] Phone Care Team Providers Care Grocery Department Manager Name Role Phone Aakash Hernández MD PP Aakash Hernnádez MD Unavailable Shaylee Rajput Unavailable Unavailable Josie Allison Unavailable Unavailable Problems Name Dates Details Acquired hypothyroidism (244.9, E03.9) Status: Active Anemia (Renamed from Absolute anemia) (285.9, D64.9) Status: Active Atherosclerosis of [place] coronary artery of [place] heart without angina pectoris (414.01, I25.10) Status: [...] daily for 30 days Quantity: 5 {Pre-filled_Pen_Syringe} Ordered:10-Apr-2015 Aakash Hernández MD* Start 10-Apr-2015 Active LISINOPRIL, 5MG (Oral Tablet) 1 (one) [...] Start 22-Nov-2014 End Inactive Comments: faxed to [facility] [address] GLYBURIDE, 5MG (Oral Tablet) - Historical Medication daily (5 MG) Inactive HYDROCHLOROTHIAZIDE, 25MG (Oral Tablet) - Historical Medication daily (25 MG) Inactive LANTUS SOLOSTAR, 100UNIT/ML (Subcutaneous Solution Pen-injector) 5 units units at bedtime for 90 days * Quantity: 450 {Milliliter} Refills: 4 Ordered: Imelda Mena R.N.* Start 22-Nov-2014 End Inactive Comments: rx faxed to [facility] [address] LEVOTHYROXINE SODIUM, 75MCG (Oral Tablet) 1 (one) Tablet Tablet daily for 30 days * Quantity: 30 {Tablet} Refills: 12 Ordered:26-Nov-2014 Imelda Mena R.N.* Start End 26-Nov-2014 Inactive LISINOPRIL, 20MG (Oral Tablet) - Historical Medication one-half tablet of 40mg daily (20 MG) Inactive LISINOPRIL, 5MG (Oral Tablet) - Historical Medication daily (5 MG) Inactive Comments: faxed to [facility] [address] NAMENDA XR TITRATION PACK, 7 & 14 [...] online Completed:26-Mar-2015 INFLUENZA QUADRIVALENT VAC: FLU VACC ([id number]) Completed:27-Mar-2015 ADMINISTRATION OF INFLUENZA VIRUS VACCINE (G0008) [...] (G0009) Ordered:15-May-2014 PREVNAR 13 VALENT PNEUMOCOCCAL VACCINE (60141) Completed:07-Jun-2014 ADMINISTRATION OF INFLUENZA VACCINE (G0008) Ordered:15-May-2014 HIGH DOSE QUADRIVALENT INFLUENZA VACCINE (41338) Completed:07-Jun-2014 Follow up in 4 months Ordered: Follow up in 4 months Ordered:03-Aug-2013 ADMIN INFLUENZA VIRUS VAC: FLU VACC PRSV FREE INC ANTIG ([id number]) Completed: Comments: CAC order ADMINISTRATION OF INFLUENZA VIRUS VACCINE (G0008) Ordered:03-May-2013 Comments: CAC order Follow up in 4 months Ordered:16-Mar-2013 CAROTID BILATERAL US ([id number]) Ordered:09-Nov-2012 Follow up in 4 months Ordered:08-Nov-2012 ADMIN INFLUENZA VIRUS VAC: FLU VACC PRSV FREE INC ANTIG ([id number]) Ordered: ADMINISTRATION OF INFLUENZA VIRUS VACCINE (G0008) Ordered:10-May-2012 CAROTID BILATERAL US ([id number]) Ordered:15-Oct-2011 ADMINISTRATION OF INFLUENZA VIRUS VACCINE (G0008) Ordered:11-Jun-2011 FLU VACC PRSV FREE INC ANTIG ([id number]) Completed:15-Jun-2011 Chronic Kidney Failure *: chronic renal insufficiency Ordered:11-Jun-2011 Follow up in 4 months Ordered: Follow up in 4 months Ordered:28-Aug-2010 EXTREMITY STUDY ([id number]) Ordered:28-Aug-[address] SCAN OF LUMBAR SPINE (88370) Ordered:28-Aug-2010 ADMINISTRATION OF INFLUENZA VIRUS VACCINE (G0008) Completed:30-May-2010 FLU VACCINE, 3 YRS & >, IM ([id number]) Completed:24-Apr-2010 Catheterization, Left Heart-Skin Completed:02-Dec-2004 EKG Completed:13-Nov-2014 EKG Completed:22-Apr-2010 Flu Vaccine Completed:10-May-2012 Flu Vaccine Completed:26-Mar-2015 Pneumovax Completed:01-May-2008 Prevnar 13 Completed:15-May-2014 PSA Completed: Comments: (3.58) PSA Completed:03-Aug-2013 Comments: (3.93) Immunization Name Dates Details Fluzone Lot #: [id number] Administered on:11-Jun-2011 Comments: Site: Deltoid (Left) Influenza (3 years and up) Lot #: [id number] Administered on:24-Apr-2010 Comments: Site: Deltoid (Left) Influenza, preserv. free, enhanced immunogncty, IM Lot #: [id number] Administered on:26-Mar-2015 Comments: Site: Deltoid (Left) Influenza, preserv. free, enhanced immunogncty, IM Lot #: [id number] Administered on:03-May-2013 Comments: Site: Deltoid (Left) Influenza, preserv. free, enhanced immunogncty, IM Lot #: [id number] Administered on:15-May-2014 Comments: Site: Deltoid (Right) Pneumococcal (2 years and up) Administered on:01-May-2008 Pneumococcal conjugate vaccine, 13 valent, IM Lot #: [id number] Administered on:15-May-2014 Comments: Site: Deltoid (Left) Family [...] Description Value Details 22-Apr-2010 11:37 ELECTROCARDIOGRAM, COMPLETE (13067) [EKG] ND Interval: 1 mm Pending 26-Nov-2014 15:59 BMP [...] (Normal) 28-Feb-2014 09:48 TSH (THYROID STIMULATING HORMONE) ([id number]) Comments: Items in this order include: Draw [...] ng/mL (Normal) Range: 0.00-4.00 11:15 Urine Microalbumin (17459) Comments: Items in this order include: Draw [...] kb. Draw Drawn (Normal) 16-Mar-2013 11:42 CK ([id number]) Comments: Items in this order include: Basic Metabolic Panel, Hemoglobin A1C, Draw Charge[i], ALT, CKILast Hgb A1C was ran 128 Days ago. Check by kb CKI 220 U/L (Normal) Range: 39-308 11:42 ALT ([id number]) Comments: Items in this order include: Basic [...] Draw Drawn (Normal) 11-Nov-2012 08:39 LIPID PANEL ([id number]) Comments: Items in this order include: Draw [...] include: Draw Charge[i], Basic Metabolic Panel, Hemoglobin [id number] Hgb A1C was ran 182 Days ago. Check by kb Range: 4.6-6.2 Comments: Consistent with diabetes. 11:08 BMP Comments: Items in this order include: Draw Charge[i], Basic Metabolic Panel, Hemoglobin [id number] Hgb A1C was ran 182 Days ago. [...] include: Draw Charge[i], Basic Metabolic Panel, Hemoglobin [id number] Hgb A1C was ran 182 Days ago. Check by kb Draw Drawn (Normal) 10-May-2012 11:35 TSH (THYROID STIMULATING HORMONE) ([id number]) Comments: Items in this order include: Draw Charge[i], Basic Metabolic Panel, Hemoglobin A1C, Urine Microalbumin, TSHLast Hgb A1C was ran 208 Days ago. Check by KB TSH 4.90 uIU/ml (Normal) Range: 0.34-5.60 11:35 Urine Microalbumin (12689) Comments: Items in this order include: Draw [...] (Normal) 11-Jun-2011 12:08 CBC-MALE- ORDER THIS ONE! ([id number]) Comments: Items in this order include: Hemoglobin [...] Comments: Consistent with diabetes. 16:22 Urine Microalbumin (35043) Comments: Items in this order include: Basic [...] (Normal) Range: 135-145 24-Oct-2010 10:57 CREATININE BLOOD (73456) Comments: Verbal order from Dr. Aakash Hernández; Verbal order from Dr. Aakash Hernández eGFR 52.0 mL/min/1.73m2 (Abnormal) Range: >60.0 CREAT 1.4 mg/dL (Abnormal) Range: 0.6-1.3 28-Aug-2010 12:07 TSH (THYROID STIMULATING HORMONE) (03408) TSH 5.29 uIU/ml (Normal) Range: 0.34-5.60 12:07 CBC-MALE- ORDER THIS ONE! (89114) manual diff Not Indicated (Normal) MCHC 35.4 [...] 8.82 10*3/uL (Normal) Range: 4.50-10.50 12:07 CK (98402) CK 199 U/L (Abnormal) Range: 26-190 12:07 ALT (35182) ALT 35 [iU]/L (Normal) Range: 30-65 12:07 [...] Range: 135-145 22-Apr-2010 12:46 BASIC METABOLIC PANEL- [facility] [place]649[place] Comments: See paper results 12:45 CBC PLATELETS & AUTO /DIFF MALE (22624) Comments: See paper results 12:12 HEMOGLOBIN GLYCLATED (HGB A1C) (07075) Comments: See paper results Treatment Plan * VENIPUNCTURE; Ordered: 02/23/2014 * LIPID PANEL (98286); Ordered: 06/15/2011 Advance Directives Encounters Office Visit - Fluzone High Dose MEDICARE VACCINE AGAINST INFLUENZA (V04.81), Controlled diabetes mellitus (250.00 | E11.9), Kidney disease, chronic, stage III (moderate, EGFR 30-59 ml/min) (585.3 | N18.3), Benign essential hypertension (401.1 | I10), Atherosclerosis of [place] coronary artery of [place] heart without angina pectoris (414.01 | I25.10) [...] was done on 12/11/2014 (done at the [facility]) and the result was 8.4 %. [...] tolerance of treatment and fair symptom control. [facility] On 26-Mar-2015 08:43 to 11:48 Office Visit - Controlled diabetes mellitus (250.00 | E11.9), Atherosclerosis of [place] coronary artery of [place] heart without angina pectoris (414.01 | I25.10), [...] tolerance of treatment and fair symptom control. [facility] On 13:35 to 16:41 [...] tolerance of treatment and fair symptom control. [facility] On 13:23 to 16:54 Office Visit - Controlled diabetes mellitus (250.00 | E11.9), Kidney disease, chronic, stage III (moderate, EGFR 30-59 ml/min) (585.3 | N18.3), Atherosclerotic heart disease of [place] coronary artery without angina pectoris (414.01 | I25.10), Acquired hypothyroidism (244.9 | E03.9), Benign essential hypertension (401.1 | I10), Senile dementia, without behavioral disturbance ( 290.0 | F03.90) Encounter Reason: Transition into care - The patient is transitioning into care from a hospital (dismissed from [facility] on 11/17/2014.) and a summary of care was reviewed ., [ADDITIONAL REASON] Diabetes Type II, Follow Up - The last clinic visit was 9 day(s) ago (dismissed from [facility] on 11/17/2014.). Symptoms do not include [...] lipid testing was done on 2013 (at [facility]) and the results included total cholesterol 167 [...] tolerance of treatment and fair symptom control. [facility] On 26-Nov-2014 13:52 to 16:06 Historical Summary [facility] On 23-Nov-2014 10:32 to 10:37 Medication Entry - Controlled diabetes mellitus (250.00 | E11.9) [facility] On 22-Nov-2014 14:11 to 14:17 Medication Entry [facility] On 07-Jun-2014 15:01 to 15:07 Office Visit - COMBO MEDICARE HIGH DOSE INFLUENZA AND PREVNAR PNEUMOVAX ( Renamed from Need for prophylactic vaccination against Streptococcus pneumoniae (pneumococcus) and influenza) (V06.6 | Z23), Atherosclerotic heart disease of [place] coronary artery without angina pectoris (414.01 | [...] lipid testing was done on 12/08/2013 (at [facility]) and the results included total cholesterol 167 [...] fat diet, aspirin, MARCUS inhibitors and statins. [facility] On 15-May-2014 14:23 to 16:08 Medication Entry [facility] On 12:04 to 12:12 Office Visit - Controlled diabetes mellitus (250.00 | E11.9), Benign essential hypertension (401.1 | I10), Atherosclerotic heart disease of [place] coronary artery without angina pectoris (414.01 | [...] Hgb A1c was done on 2013 (at [facility]) and the result was 8.3 %. Most recent microalbumin was done on 12/08 and the result was mcg/mg Creatinine (64). Most recent lipid testing was done on 12/08/2013 (at [facility]) and the results included total cholesterol 167 [...] fat diet, aspirin, MARCUS inhibitors and statins. [facility] On 11:49 to 16:18 Historical Summary [facility] On 10:50 to 10:53 Office Visit - Atherosclerotic heart disease of [place] coronary artery without angina pectoris (414.01 | [...] fat diet, aspirin, MARCUS inhibitors and statins. [facility] On 03-Aug-2013 08:48 to 11:10 Historical Summary [facility] On 02-Aug-2013 10:28 to 10:30 Nurse Visit - Need for prophylactic vaccination and inoculation against influenza (V04.81) [facility] On 03-May-2013 12:59 to 13:01 Office Visit - Controlled diabetes mellitus (250.00 | E11.9), Kidney disease, chronic, stage III (moderate, EGFR 30-59 ml/min) (585.3 | N18.3), Atherosclerotic heart disease of [place] coronary artery without angina pectoris (414.01 | [...] fat diet, aspirin, MARCUS inhibitors and statins. [facility] On 16-Mar-2013 10:17 to 11:40 Office Visit - Benign essential hypertension (401.1 | I10), Kidney disease, chronic, stage III (GFR 30-59 ml/min) (585.3), Atherosclerotic heart disease of [place] coronary artery without angina pectoris (414.01 | [...] fat diet, aspirin, MARCUS inhibitors and statins. [facility] On 08-Nov-2012 10:08 to 11:01 Office Visit - Fluzone High Dose MEDICARE VACCINE AGAINST INFLUENZA (V04.81), Type II diabetes mellitus (250.00), Hypertension, benign (401.1), Peripheral vascular disease (Renamed from Peripheral blood vessel disorder) (443.9 | I73.9) , Kidney disease, chronic, stage III (GFR 30-59 ml/min) (585.3), Atherosclerotic heart disease of [place] coronary artery without angina pectoris (414.01 | [...] fat diet, aspirin, MARCUS inhibitors and statins. [facility] 10-May-2012 to 12-May-2012 Office [...] fat diet, aspirin, MARCUS inhibitors and statins. [facility] 15-Oct-2011 to 18-Oct-2011 Historical Summary [facility] On 14-Oct-2011 15:43 to [...] of oral contraceptives, visual disturbances or weakness. [facility] On 11-Jun-2011 11:27 to 12:04 Historical Summary [facility] On 11-Jun-2011 08:17 to [...] of oral contraceptives, visual disturbances or weakness. [facility] to Lab entry only - Diabetes mellitus (250.00) [facility] On 24-Oct-2010 10:43 to [...] good tolerance of treatment and good symptom control.[facility] 28-Aug-2010 to 29-Aug-2010 Office [...] last visit. Onset was 15 year(s) ago. [facility] 24-Apr-2010 to 30-Apr-2010 Lab entry only - Diabetes mellitus type 1 (250.01), Hypertension, benign ( 401.1), Hypercholesterolemia (272.0) [facility] On 22-Apr-2010 12:43 to 14:00 Lab entry only - Diabetes mellitus type 1 (250.01) [facility] On 22-Apr-2010 12:09 to 12:13 Historical Summary - Pre-operative examination (V72.84), Coronary atherosclerosis (414.00) [facility] On 22-Apr-2010 11:35 to 12:09 Insurance * Chi Lowry ; a guarantor * Medicare WPS * BS Plan 65
--- OUTSIDE RECORDS SUMMARY | 2017-04-29 00:55 | XMS REPORT | Continuity of Care Document ---
Author Author [facility] Organization [facility] Address [address] [place] [address] Phone Care Team Providers Care Seismic Plotter Name Role Phone Aakash Hernández MD PP Aakash Hernández MD Unavailable Ghazala Vasquez Unavailable Unavailable Problems Name Dates Details Acquired hypothyroidism (244.9, E03.9) Status: Active Anemia (Renamed from Absolute anemia) (285.9, D64.9) Status: Active Atherosclerotic heart disease of [place] coronary artery without angina pectoris (414.01, I25.10) [...] MD* Start 22-Nov-2014 Active Comments: faxed to [place] DONAVAN HYDROCHLOROTHIAZIDE, 25MG (Oral Tablet) - Historical Medication daily (25 MG) Active LANTUS SOLOSTAR, 100UNIT/ML (Subcutaneous Solution Pen-injector) 5 units at bedtime for 90 days * Quantity: 450 {Milliliter} Refills: 4 Ordered:22-Nov-2014 Aakash Hernández MD* Start 22-Nov-2014 Active Comments: rx faxed to [facility] LEVOTHYROXINE SODIUM, 75MCG (Oral Tablet) 1 (one) Tablet Tablet daily for 30 days * Quantity: 30 {Tablet} Refills: 12 Ordered:15-May-2014 Aakash Hernández MD* Start Active LISINOPRIL, 5MG (Oral Tablet) 1 (one) Tablet daily for 90 days * Quantity: 90 {Tablet} Refills: 4 Ordered:22-Nov-2014 Aakash Hernández MD* Start 22-Nov-2014 Active Comments: faxed to [facility] METFORMIN HCL, 500MG (Oral Tablet) - Historical [...] daily (5 MG) Inactive Comments: faxed to [facility] Novalog Insulin 70/30 - Historical Medication [...] (G0009) Ordered:15-May-2014 PREVNAR 13 VALENT PNEUMOCOCCAL VACCINE ([id number]) Completed:07-Jun-2014 ADMINISTRATION OF INFLUENZA VACCINE (G0008) Ordered:15-May-2014 HIGH DOSE QUADRIVALENT INFLUENZA VACCINE ([id number]) Completed:07-Jun-2014 Follow up in 4 months Ordered: Follow up in 4 months Ordered:03-Aug-2013 ADMIN INFLUENZA VIRUS VAC: FLU VACC PRSV FREE INC ANTIG ([id number]) Completed: Comments: CAC order ADMINISTRATION OF INFLUENZA VIRUS VACCINE (G0008) Ordered:03-May-2013 Comments: CAC order Follow up in 4 months Ordered:16-Mar-2013 CAROTID BILATERAL US ([id number]) Ordered:09-Nov-2012 Follow up in 4 months Ordered:08-Nov-2012 ADMIN INFLUENZA VIRUS VAC: FLU VACC PRSV FREE INC ANTIG ([id number]) Ordered: ADMINISTRATION OF INFLUENZA VIRUS VACCINE (G0008) Ordered:10-May-2012 CAROTID BILATERAL US ([id number]) Ordered:15-Oct-2011 ADMINISTRATION OF INFLUENZA VIRUS VACCINE (G0008) Ordered:11-Jun-2011 FLU VACC PRSV FREE INC ANTIG ([id number]) Completed:15-Jun-2011 Chronic Kidney Failure *: chronic renal insufficiency Ordered:11-Jun-2011 Follow up in 4 months Ordered: Follow up in 4 months Ordered:28-Aug-2010 EXTREMITY STUDY ([id number]) Ordered:28-Aug-[address] SCAN OF LUMBAR SPINE (10261) Ordered:28-Aug-2010 ADMINISTRATION OF INFLUENZA VIRUS VACCINE (G0008) Completed:30-May-2010 FLU VACCINE, 3 YRS & >, IM ([id number]) Completed:24-Apr-2010 Catheterization, Left Heart-Skin Completed:02-Dec-2004 EKG Completed:22-Apr-2010 EKG Completed:13-Nov-2014 Flu Vaccine Completed:15-May-2014 Flu Vaccine Completed:10-May-2012 Pneumovax Completed:01-May-2008 Prevnar 13 Completed:15-May-2014 PSA Completed: Comments: (3.58) PSA Completed:03-Aug-2013 Comments: (3.93) Immunization Name Dates Details Fluzone Lot #: [id number] Administered on:11-Jun-2011 Comments: Site: Deltoid (Left) Influenza (3 years and up) Lot #: [id number] Administered on:24-Apr-2010 Comments: Site: Deltoid (Left) Influenza, preserv. free, enhanced immunogncty, IM Lot #: [id number] Administered on:03-May-2013 Comments: Site: Deltoid (Left) Influenza, preserv. free, enhanced immunogncty, IM Lot #: [id number] Administered on:15-May-2014 Comments: Site: Deltoid (Right) Pneumococcal (2 years and up) Administered on:01-May-2008 Pneumococcal conjugate vaccine, 13 valent, IM Lot #: [id number] Administered on:15-May-2014 Comments: Site: Deltoid (Left) Family [...] Description Value Details 22-Apr-2010 11:37 ELECTROCARDIOGRAM, COMPLETE (30331) [EKG] [place] Interval: 1 mm Pending 28-Feb-2014 09:48 TSH (THYROID STIMULATING HORMONE) (12031) Comments: Items in this order include: Draw [...] ng/mL (Normal) Range: 0.00-4.00 11:15 Urine Microalbumin ([id number]) Comments: Items in this order include: Draw [...] kb. Draw Drawn (Normal) 16-Mar-2013 11:42 CK ([id number]) Comments: Items in this order include: Basic Metabolic Panel, Hemoglobin A1C, Draw Charge[i], ALT, CKILast Hgb A1C was ran 128 Days ago. Check by landon CKI 220 U/L (Normal) Range: 39-308 11:42 ALT (36181) Comments: Items in this order include: Basic [...] Draw Drawn (Normal) 11-Nov-2012 08:39 LIPID PANEL ([id number]) Comments: Items in this order include: Draw [...] include: Draw Charge[i], Basic Metabolic Panel, Hemoglobin [id number] Hgb A1C was ran 182 Days ago. Check by kb Range: 4.6-6.2 Comments: Consistent with diabetes. 11:08 BMP Comments: Items in this order include: Draw Charge[i], Basic Metabolic Panel, Hemoglobin [id number] Hgb A1C was ran 182 Days ago. [...] include: Draw Charge[i], Basic Metabolic Panel, Hemoglobin A3PHdix Hgb A1C was ran 182 Days ago. Check by kb Draw Drawn (Normal) 10-May-2012 11:35 TSH (THYROID STIMULATING HORMONE) ([id number]) Comments: Items in this order include: Draw Charge[i], Basic Metabolic Panel, Hemoglobin A1C, Urine Microalbumin, TSHLast Hgb A1C was ran 208 Days ago. Check by KB TSH 4.90 uIU/ml (Normal) Range: 0.34-5.60 11:35 Urine Microalbumin (09338) Comments: Items in this order include: Draw [...] (Normal) 11-Jun-2011 12:08 CBC-MALE- ORDER THIS ONE! ([id number]) Comments: Items in this order include: Hemoglobin [...] Comments: Consistent with diabetes. 16:22 Urine Microalbumin (35805) Comments: Items in this order include: Basic [...] (Normal) Range: 135-145 24-Oct-2010 10:57 CREATININE BLOOD (46603) Comments: Verbal order from Dr. Aakash Hernández; Verbal order from Dr. Aakash Hernández eGFR 52.0 mL/min/1.73m2 (Abnormal) Range: >60.0 CREAT 1.4 mg/dL (Abnormal) Range: 0.6-1.3 28-Aug-2010 12:07 TSH (THYROID STIMULATING HORMONE) (57406) TSH 5.29 uIU/ml (Normal) Range: 0.34-5.60 12:07 CBC-MALE- ORDER THIS ONE! (49545) manual diff Not Indicated (Normal) MCHC 35.4 [...] 8.82 10*3/uL (Normal) Range: 4.50-10.50 12:07 CK (63182) CK 199 U/L (Abnormal) Range: 26-190 12:07 ALT (20089) ALT 35 [iU]/L (Normal) Range: 30-65 12:07 [...] Range: 135-145 22-Apr-2010 12:46 [place]IC [place]ABOLIC [place]EL[place] [facility] [id number]) Comments: See paper results 12:45 CBC PLATELETS & AUTO /DIFF MALE (84977) Comments: See paper results 12:12 HEMOGLOBIN GLYCLATED (HGB A1C) (50595) Comments: See paper results Treatment Plan * VENIPUNCTURE; Ordered: 02/23/2014 * LIPID PANEL (31269); Ordered: 06/15/2011 Advance Directives Encounters Historical Summary [facility] On 23-Nov-2014 10:32 to 10:37 Medication Entry - Controlled diabetes mellitus (250.00 | E11.9) [facility] On 22-Nov-2014 14:11 to 14:17 Medication Entry [facility] On 07-Jun-2014 15:01 to 15:07 Office Visit - COMBO MEDICARE HIGH DOSE INFLUENZA AND PREVNAR PNEUMOVAX ( Renamed from Need for prophylactic vaccination against Streptococcus pneumoniae (pneumococcus) and influenza) (V06.6 | Z23), Atherosclerotic heart disease of [place] coronary artery without angina pectoris (414.01 | [...] fat diet, aspirin, MARCUS inhibitors and statins. [facility] On 15-May-2014 14:23 to 16:08 Medication Entry [facility] On 12:04 to 12:12 Office Visit - Controlled diabetes mellitus (250.00 | E11.9), Benign essential hypertension (401.1 | I10), Atherosclerotic heart disease of [place] coronary artery without angina pectoris (414.01 | [...] fat diet, aspirin, MARCUS inhibitors and statins. [facility] On 11:49 to 16:18 Historical Summary [facility] On 10:50 to 10:53 Office Visit - Atherosclerotic heart disease of [place] coronary artery without angina pectoris (414.01 | [...] fat diet, aspirin, MARCUS inhibitors and statins. [facility] On 03-Aug-2013 08:48 to 11:10 Historical Summary [facility] On 02-Aug-2013 10:28 to 10:30 Nurse Visit - Need for prophylactic vaccination and inoculation against influenza (V04.81) [facility] On 03-May-2013 12:59 to 13:01 Office Visit - Controlled diabetes mellitus (250.00 | E11.9), Kidney disease, chronic, stage III (moderate, EGFR 30-59 ml/min) (585.3 | N18.3), Atherosclerotic heart disease of [place] coronary artery without angina pectoris (414.01 | [...] fat diet, aspirin, MARCUS inhibitors and statins. [facility] On 16-Mar-2013 10:17 to 11:40 Office Visit - Benign essential hypertension (401.1 | I10), Kidney disease, chronic, stage III (GFR 30-59 ml/min) (585.3), Atherosclerotic heart disease of [place] coronary artery without angina pectoris (414.01 | [...] fat diet, aspirin, MARCUS inhibitors and statins. [facility] On 08-Nov-2012 10:08 to 11:01 Office Visit - Fluzone High Dose MEDICARE VACCINE AGAINST INFLUENZA (V04.81), Type II diabetes mellitus (250.00), Hypertension, benign (401.1), Peripheral vascular disease (Renamed from Peripheral blood vessel disorder) (443.9 | I73.9) , Kidney disease, chronic, stage III (GFR 30-59 ml/min) (585.3), Atherosclerotic heart disease of [place] coronary artery without angina pectoris (414.01 | [...] fat diet, aspirin, MARCUS inhibitors and statins. [facility] 10-May-2012 to 12-May-2012 Office Visit - [...] fat diet, aspirin, MARCUS inhibitors and statins. [facility] 15-Oct-2011 to 18-Oct-2011 Historical Summary [facility] On 14-Oct-2011 15:43 to 16:07 Office [...] of oral contraceptives, visual disturbances or weakness. [facility] On 11-Jun-2011 11:27 to 12:04 Historical Summary [facility] On 11-Jun-2011 08:17 to 08:20 Office [...] of oral contraceptives, visual disturbances or weakness. [facility] to Lab entry only - Diabetes mellitus (250.00) [facility] On 24-Oct-2010 10:43 to 10:45 Office [...] good tolerance of treatment and good symptom control.[facility] 28-Aug-2010 to 29-Aug-2010 Office Visit - [...] last visit. Onset was 15 year(s) ago. [facility] 24-Apr-2010 to 30-Apr-2010 Lab entry only - Diabetes mellitus type 1 (250.01), Hypertension, benign ( 401.1), Hypercholesterolemia (272.0) [facility] On 22-Apr-2010 12:43 to 14:00 Lab entry only - Diabetes mellitus type 1 (250.01) [facility] On 22-Apr-2010 12:09 to 12:13 Historical Summary - Pre-operative examination (V72.84), Coronary atherosclerosis (414.00) [facility] On 22-Apr-2010 11:35 to 12:09 Insurance * Chi Lowry ; a guarantor * Medicare WPS * BS Plan 65
--- OUTSIDE RECORDS SUMMARY | 2017-04-29 00:56 | XMS REPORT | Continuity of Care Document ---
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 METFORMIN HCL, 500MG (Oral [...] daily (5 MG) Inactive Comments: faxed to [facility] Shaanalog Insulin 70/30 - Historical Medication 20 units [...] (G0009) Ordered:15-May-2014 PREVNAR 13 VALENT PNEUMOCOCCAL VACCINE ([id number]) Completed:07-Jun-2014 ADMINISTRATION OF INFLUENZA VACCINE (G0008) Ordered:15-May-2014 HIGH DOSE QUADRIVALENT INFLUENZA VACCINE (48872) Completed:07-Jun-2014 Follow up in 4 months Ordered: Follow up in 4 months Ordered:03-Aug-2013 ADMIN INFLUENZA VIRUS VAC: FLU VACC PRSV FREE INC ANTIG ([id number]) Completed: Comments: CAC order ADMINISTRATION OF INFLUENZA VIRUS VACCINE (G0008) Ordered:03-May-2013 Comments: CAC order Follow up in 4 months Ordered:16-Mar-2013 CAROTID BILATERAL US ([id number]) Ordered:09-Nov-2012 Follow up in 4 months Ordered:08-Nov-2012 ADMIN INFLUENZA VIRUS VAC: FLU VACC PRSV FREE INC ANTIG ([id number]) Ordered: ADMINISTRATION OF INFLUENZA VIRUS VACCINE (G0008) Ordered:10-May-2012 CAROTID BILATERAL US ([id number]) Ordered:15-Oct-2011 ADMINISTRATION OF INFLUENZA VIRUS VACCINE (G0008) Ordered:11-Jun-2011 FLU VACC PRSV FREE INC ANTIG ([id number]) Completed:15-Jun-2011 Chronic Kidney Failure *: chronic renal insufficiency Ordered:11-Jun-2011 Follow up in 4 months Ordered: Follow up in 4 months Ordered:28-Aug-2010 EXTREMITY STUDY ([id number]) Ordered:28-Aug-[address] SCAN OF LUMBAR SPINE (28230) Ordered:28-Aug-2010 ADMINISTRATION OF INFLUENZA VIRUS VACCINE (G0008) Completed:30-May-2010 FLU VACCINE, 3 YRS & >, IM ([id number]) Completed:24-Apr-2010 Catheterization, Left Heart-Skin Completed:02-Dec-2004 EKG Completed:13-Nov-2014 EKG Completed:22-Apr-2010 Flu Vaccine Completed:10-May-2012 Flu Vaccine Completed:15-May-2014 Pneumovax Completed:01-May-2008 Prevnar 13 Completed:15-May-2014 PSA Completed:03-Aug-2013 Comments: (3.93) PSA Completed: Comments: (3.58) Immunization Name Dates Details Fluzone Lot #: [id number] Administered on:11-Jun-2011 Comments: Site: Deltoid (Left) Influenza (3 years and up) Lot #: [id number] Administered on:24-Apr-2010 Comments: Site: Deltoid (Left) Influenza, preserv. free, enhanced immunogncty, IM Lot #: [id number] Administered on:03-May-2013 Comments: Site: Deltoid (Left) Influenza, preserv. free, enhanced immunogncty, IM Lot #: [id number] Administered on:15-May-2014 Comments: Site: Deltoid (Right) Pneumococcal (2 years and up) Administered on:01-May-2008 Pneumococcal conjugate vaccine, 13 valent, IM Lot #: [id number] Administered on:15-May-2014 Comments: Site: Deltoid (Left) Family History Name Dates Details Brother 1 Comments: healthy Status: Active Brother 2 Comments: borderline diabetes Status: Active Father Comments: 72 yo of [place] Status: Active Mother Comments: at 67 of [...] Description Value Details 22-Apr-2010 11:37 ELECTROCARDIOGRAM, COMPLETE (65035) [EKG] [place] Interval: 1 mm Pending 28-Feb-2014 09:48 TSH (THYROID STIMULATING HORMONE) (50375) Comments: Items in this order include: Draw [...] ng/mL (Normal) Range: 0.00-4.00 11:15 Urine Microalbumin (45792) Comments: Items in this order include: Draw [...] kb. Draw Drawn (Normal) 16-Mar-2013 11:42 CK (05850) Comments: Items in this order include: Basic Metabolic Panel, Hemoglobin A1C, Draw Charge[i], ALT, CKILast Hgb A1C was ran 128 Days ago. Check by kb CKI 220 U/L (Normal) Range: 39-308 11:42 ALT (33581) Comments: Items in this order include: Basic [...] Draw Drawn (Normal) 11-Nov-2012 08:39 LIPID PANEL (89551) Comments: Items in this order include: Draw [...] include: Draw Charge[i], Basic Metabolic Panel, Hemoglobin [id number] Hgb A1C was ran 182 Days ago. Check by kb Range: 4.6-6.2 Comments: Consistent with diabetes. 11:08 BMP Comments: Items in this order include: Draw Charge[i], Basic Metabolic Panel, Hemoglobin [id number] Hgb A1C was ran 182 Days ago. [...] include: Draw Charge[i], Basic Metabolic Panel, Hemoglobin [id number] Hgb A1C was ran 182 Days ago. Check by kb Draw Drawn (Normal) 10-May-2012 11:35 TSH (THYROID STIMULATING HORMONE) (35160) Comments: Items in this order include: Draw Charge[i], Basic Metabolic Panel, Hemoglobin A1C, Urine Microalbumin, TSHLast Hgb A1C was ran 208 Days ago. Check by KB TSH 4.90 uIU/ml (Normal) Range: 0.34-5.60 11:35 Urine Microalbumin (41206) Comments: Items in this order include: Draw [...] (Normal) 11-Jun-2011 12:08 CBC-MALE- ORDER THIS ONE! (80637) Comments: Items in this order include: Hemoglobin [...] Comments: Consistent with diabetes. 16:22 Urine Microalbumin (82781) Comments: Items in this order include: Basic [...] (Normal) Range: 135-145 24-Oct-2010 10:57 CREATININE BLOOD (88496) Comments: Verbal order from Dr. Aakash Hernández; Verbal order from Dr. Aakash Hernández eGFR 52.0 mL/min/1.73m2 (Abnormal) Range: >60.0 CREAT 1.4 mg/dL (Abnormal) Range: 0.6-1.3 28-Aug-2010 12:07 TSH (THYROID STIMULATING HORMONE) (61068) TSH 5.29 uIU/ml (Normal) Range: 0.34-5.60 12:07 CBC-MALE- ORDER THIS ONE! (17475) manual diff Not Indicated (Normal) MCHC 35.4 [...] 8.82 10*3/uL (Normal) Range: 4.50-10.50 12:07 CK (75037) CK 199 U/L (Abnormal) Range: 26-190 12:07 ALT (37863) ALT 35 [iU]/L (Normal) Range: 30-65 12:07 [...] Range: 135-145 22-Apr-2010 12:46 BASIC METABOLIC PANEL- [facility] (17868) Comments: See paper results 12:45 CBC PLATELETS & AUTO /DIFF MALE (65138) Comments: See paper results 12:12 HEMOGLOBIN GLYCLATED (HGB A1C) (45885) Comments: See paper results Treatment Plan * VENIPUNCTURE; Ordered: 02/23/2014 * LIPID PANEL (09173); Ordered: 06/15/2011 Advance Directives Encounters Review Encounter Reason: Transition into care - The patient is transitioning into care from a hospital (dismissed from [facility] on 11/17/2014.) and a summary of care was reviewed ., [ADDITIONAL REASON] Diabetes Type II, Follow Up - The last clinic visit was 9 day(s) ago (dismissed from [facility] on 11/17/2014.). Symptoms do not [...] lipid testing was done on 2013 (at [place]) and the results included total cholesterol 167 [...] (V06.6 | Z23), Atherosclerotic heart disease of [place] coronary artery without angina pectoris (414.01 | [...] lipid testing was done on 12/08/2013 (at [place]) and the results included total cholesterol 167 [...] (401.1 | I10), Atherosclerotic heart disease of [place] coronary artery without angina pectoris (414.01 | [...] Hgb A1c was done on 2013 (at [place]) and the result was 8.3 %. Most recent microalbumin was done on 12/08 and the result was mcg/mg Creatinine (64). Most recent lipid testing was done on 12/08/2013 (at [place]) and the results included total cholesterol 167 [...] Office Visit - Atherosclerotic heart disease of [place] coronary artery without angina pectoris (414.01 | [...] (585.3 | N18.3), Atherosclerotic heart disease of [place] coronary artery without angina pectoris (414.01 | [...] 30-59 ml/min) (585.3), Atherosclerotic heart disease of [place] coronary artery without angina pectoris (414.01 | [...] 30-59 ml/min) (585.3), Atherosclerotic heart disease of [place] coronary artery without angina pectoris (414.01 | [...] myocardial infarction and sudden (Dad suddenly of [place] at the age of 72.). Pertinent social [...]
[2017-04-29 01:10] LABS: BASOPHILS % (AUTO) 0 % (0-10); EOSINOPHILS # (AUTO) 0.1 10^3/uL (0.0-0.3); EOSINOPHILS % (AUTO) 1 % (0-10); LYMPHOCYTES % (AUTO) 12 % (12-44); MEAN CORPUSCULAR HEMOGLOBIN 29 PG (25-34); MEAN CORPUSCULAR HGB CONC 33 G/DL (32-36); MEAN CORPUSCULAR VOLUME 88 FL (80-99); MEAN PLATELET VOLUME 10.9 FL (7.4-10.4); MONOCYTES # (AUTO) 1.9 X 10^3 (0.0-1.0); MONOCYTES % (AUTO) 11 % (0-12); NEUTROPHILS # (AUTO) 13.2 X 10^3 (1.8-7.8); NEUTROPHILS % (AUTO) 77 % (42-75); PLATELET COUNT 221 10^3/uL (130-400); RED BLOOD COUNT 4.83 10^6/uL (4.35-5.85); RED CELL DISTRIBUTION WIDTH 13.6 % (10.0-14.5); WHITE BLOOD COUNT 17.3 10^3/uL (4.3-11.0)
[2017-04-29 01:18] LABS: INR 0.9 (0.8-1.4); PROTHROMBIN TIME PATIENT 12.6 SEC (12.2-14.7)
[2017-04-29] MEDS ORDERED: cefTRIAXone INJECTION 1,000 MG in NS (IVPB) 50 ML IV ONE (01:30)
[2017-04-29 01:32] LABS: BAND NEUTROPHILS 4 %; BASOPHILS % (MANUAL) 0 %; EOSINOPHILS % (MANUAL) 0 %; LYMPHOCYTES % (MANUAL) 7 %; NEUTROPHILS % (MANUAL) 77 %; REACTIVE LYMPHOCYTES 4 %
[2017-04-29 01:36] LABS: ALBUMIN 3.8 GM/DL (3.2-4.5); BILIRUBIN,TOTAL 0.6 MG/DL (0.1-1.0); CALCIUM 9.2 MG/DL (8.5-10.1); CREATININE SERUM 1.73 MG/DL (0.60-1.30); MAGNESIUM 2.1 MG/DL (1.8-2.4); TOTAL PROTEIN 7.6 GM/DL (6.4-8.2); hs C REACTIVE PROTEIN 4.81 MG/DL (0.00-0.50)
[2017-04-29] MEDS ORDERED: NS IV 1000 ML 1,000 ML IV STA (01:37)
[2017-04-29] MEDS ORDERED: NS IV 1000 ML 1,000 ML IV ONE (01:37)
[2017-04-29] MEDS ORDERED: CEFEPIME INJECTION 2,000 MG in NS (IVPB) 50 ML IV ONE (01:45)
[2017-04-29 03:00] VITALS: BP 151/67
[2017-04-29] MEDS ORDERED: VANCOMYCIN 1 GM/NS 250 ML IVPB IV ONE ×2 (04:15)
[2017-04-29] MEDS ORDERED: ACETAMINOPHEN 500 MG TAB (TYLENOL) PO PRN (04:15)
[2017-04-29] MEDS ORDERED: ONDANSETRON 4 MG/2 ML (SDV) Z0FRAN IV PRN (04:15)
[2017-04-29] MEDS ORDERED: RT-ALBUTEROL SULF 2.5 MG/3 ML PRE-MIX VIAL IH PRN (04:15)
[2017-04-29] MEDS: NS IV 1000 ML 1,000 ML IV SCH ×3 (04:59→23:25)
[2017-04-29 05:19] VITALS: BP 151/67
[2017-04-29] MEDS: inSUlin (REGULAR) HUMAN 1 UNIT/0.01 ML (CHARGE PER UNIT) SC SCH ×4 (05:50→21:55)
[2017-04-29] MEDS ORDERED: CEFEPIME 2 GM/NS 50 ML IVPB IV SCH ×4 (06:00→21:00)
[2017-04-29] MEDS ORDERED: FUROSEMIDE 40 MG/4 ML INJ (LASIX) IVP ONE (06:45)
--- NOTE | 2017-04-29 06:56 | Pulmonary Consultation ---
History of Present Illness History of Present Illness Date of Consultation 04/29/17 06:52 Date of Admission Allergies and Home Medications Allergies Coded Allergies: Penicillins (Unverified Allergy, Unknown, 04/29/17) hydrocodone (Unverified Allergy, Unknown, 04/29/17) levofloxacin (Unverified Allergy, Unknown, 04/29/17) Home Medications Acetaminophen 325 Mg Tablet, 650 MG PO Q4H PRN for PAIN-MODERATE, (Reported) Albuterol Sulfate 1.25 Mg/3 Ml Vial.neb, 1.25 MG NEB Q6H PRN for SHORTNESS OF BREATH, (Reported) Alprazolam 0.25 Mg Tablet, 0.25 MG PO Q4H PRN for AGGITATION/ANXIETY, (Reported) Bisacodyl 10 Mg Supp.rect, 10 MG RC DAILY PRN for CONSTIPATION-4TH LINE, ( Reported) Cholecalciferol (Vitamin D3) 2,000 Unit Tablet, 2,000 UNIT PO DAILY, (Reported) Clonazepam 0.5 Mg Tablet, 0.5 MG PO BID, (Reported) Cyanocobalamin (Vitamin B-12) 1,000 Mcg Tablet, 1,000 MCG PO DAILY, (Reported) Donepezil HCl 10 Mg Tablet, 10 MG PO HS, (Reported) Duloxetine HCl 30 Mg Capsule.dr, 30 MG PO HS, (Reported) Duloxetine HCl 60 Mg Capsule.dr, 60 MG PO DAILY, (Reported) Folic Acid 1 Mg Tablet, 1 MG PO DAILY, (Reported) Furosemide 20 Mg Tablet, 20 MG PO DAILY, (Reported) Gabapentin 300 Mg Capsule, 300 MG PO TID, (Reported) Guaifenesin 600 Mg Tab.er.12h, 600 MG PO BID, (Reported) Insulin Aspart 300 Units/3 Ml Solution, SQ AC, (Reported) 80-100 = 2 UNITS 101-150 =4 UNITS 151-200 =5 UNITS 201-250 =6 UNITS 251-300 = 7 UNITS 301-350 =8 UNITS 351-400 =9 UNITS OVER 400 GIVE 10 UNITS AND NOTIFY PCP Insulin Degludec 100 Unit/1 Ml Insuln.pen, 70 UNIT SQ HS, (Reported) Mag Hydrox/Aluminum Hyd/Simeth 355 Ml Oral.susp, 30 ML PO Q2H PRN for HEARTBURN, (Reported) Olanzapine 5 Mg Tablet, 5 MG PO HS, (Reported) Polyethylene Glycol 3350 17 Gm Powd.pack, 17 GM PO DAILY PRN for CONSTIPATION- 2ND LINE, (Reported) Potassium Chloride 20 Meq Tablet.er, 20 MEQ PO DAILY, (Reported) Simvastatin 20 Mg Tablet, 20 MG PO HS, (Reported) Past Dqromml-Xnngjt-Udpwtn Hx Patient Social History Alcohol Use: Denies Use Recreational Drug Use: No (unknown) Smoking Status: Unknown if Ever Smoked 2nd Hand Smoke Exposure: No Recent Foreign Travel: No Contact w/Someone Who Travel: No Recent Infectious Disease Expo: No Recent Hopitalizations: No Physical Abuse: No Sexual Abuse: No Mistreated: No Fear: No Immunizations Up To Date Tetanus Booster (TDap): Unknown Respiratory History of Respiratory Disorde: Yes Respiratory Disorders: Pneumonia Neurological History of Neurological Disord: Yes Endocrine History of Endocrine Disorders: Yes Psychosocial History of Psychiatric Problem: Yes Behavioral Health Disorders: Violent Behavior Suicide Risk Score: 0 Family Medical History Family Medial History: Patient reports no known family medical history. Exam Exam Vital Signs Date Time Temp Pulse Resp B/P (MAP) Pulse Ox O2 Delivery O2 Flow Rate FiO2 04/29/17 06:32 91 Non Rebreather 15.00 04/29/17 06:20 91 Non Rebreather 15.00 04/29/17 05:19 64 96 100 04/29/17 03:00 99.3 64 20 151/67 96 Non Rebreather 15.00 04/29/17 02:49 High Flow N/C 15.00 04/29/17 02:35 97.6 78 18 95 15.00 04/29/17 01:42 97.8 78 20 131/78 92 Non Rebreather 04/29/17 00:34 94 Non Rebreather 15.00 04/29/17 00:20 97.5 61 24 141/86 95 15.00 04/29/17 00:20 95 Non Rebreather 15.00 100 Capillary Refill: Less Than 3 Seconds Gastrointestinal: normal bowel sounds, non tender, soft Results Lab Laboratory Tests 04/29/17 00:55 Assessment/Plan Assessment/Plan HCAP -Continue cefepime, vancomycin Respiratory failure - pt just received 40mg of IV lasix -Oxygen, BiPAP -SVNS q4 -Check ABG -start solumedrol 40 IV Q 6 Atelectasis 255 Clinical Quality Measures DVT/VTE Risk/Contraindication: Risk Factor Score Per Nursin RFS Level Per Nursing on Admit: 4+=Very High ILENE WINKLER DO Apr 29, 2017 06:56
[2017-04-29] MEDS ORDERED: PHARMACY TO DOSE IV SCH (07:00)
[2017-04-29] MEDS ORDERED: INFLUENZA TRIvalent 2017-2018 0.5 ML/45 MCG SYR IM ONE (07:15)
--- NOTE | 2017-04-29 07:34 | Diagnostic Imaging Report ---
INDICATION: Shortness of air. COMPARISON: 03/25/2017. FINDINGS: The heart is enlarged and increased in size from prior. There is new pulmonary vascular congestion. There is some prominence of interstitial lung markings and given the additional changes, likely interstitial edema. There is some parenchymal opacity in the left greater than right lung base that may be atelectasis or pneumonia superimposed. IMPRESSION: Features of failure or hypervolemia have developed within cardiomegaly and vascular congestion with mild interstitial edema. Yfxo-aapyvhw-acus-right basilar opacities may reflect atelectasis and/or pneumonia superimposed. Dictated by: Dictated on workstation # [id number]
[2017-04-29 07:37] VITALS: BP 128/62
[2017-04-29 07:37] LABS: MEAN PLATELET VOLUME 10.9 FL (7.4-10.4); RED BLOOD COUNT 4.97 10^6/uL (4.35-5.85)
--- NOTE | 2017-04-29 07:39 | History & Physicial ---
History of Present Illness History of Present Illness Reason for visit/HPI patient is [facility]. Patient's pulse ox went into the 80s. Patient getting wet the chest. Patient hypotensive. Patient sent out to the emergency room. Has renal insufficiency. Patient and known diabetic on insulin. Patient has Alzheimer's. Patient this morning has his eyes closed and not talking and has a wet chest. Patient DO NOT RESUSCITATE Date of Admission Apr 29, 2017 at 01:51 Time Seen by Provider: 07:30 I consulted on this patient on 04/29/17 07:33 Attending Physician Chi Akers DO Admitting Physician Chi Akers DO Consult Allergies and Home Medications Allergies Coded Allergies: hydrocodone (Unverified Allergy, Unknown, 04/29/17) levofloxacin (Unverified Allergy, Unknown, 04/29/17) Uncoded Allergies: PCN (Allergy, Unknown, 04/29/17) Past Dyhgzbl-Klpxdr-Lwixlh Hx Patient Social History Alcohol Use: Denies Use Recreational Drug Use: No (unknown) Smoking Status: Unknown if Ever Smoked 2nd Hand Smoke Exposure: No Physical Abuse Screen: No Sexual Abuse: No Recent Foreign Travel: No Contact w/other who traveled: No Recent Hopitalizations: No Recent Infectious Disease Expo: No Immunizations Up To Date Tetanus Booster (TDap): Unknown Respiratory Yes Neurological Yes Endocrine History of Endocrine Disorders: Yes Psychosocial History of Psychiatric Problem: Yes Behavioral Health Disorders: Violent Behavior Family Medical History Family Hx: Patient reports no known family medical history. Constitutional: malaise, weakness EENTM: no symptoms reported Respiratory: short of breath, other (hypoxic,wet) Cardiovascular: no symptoms reported Gastrointestinal: no symptoms reported Genitourinary: other (renal insufficiency) Physical Exam Vital Signs Vital Sign - Last 12Hours 04/29/17 00:20 Temp 97.5 Pulse 61 Resp 24 B/P (MAP) 141/86 Pulse Ox 95 O2 Delivery Non Rebreather O2 Flow Rate 15.00 FiO2 100 Capillary Refill : Less Than 3 Seconds General Appearance: Mild Distress HEENT: Normal ENT Inspection Neck: Normal Inspection Respiratory: Decreased Breath Sounds, Other (and wets, on oxygen) Cardiovascular: Regular Rate, Rhythm Gastrointestinal: Non Tender, Soft Assessment/Plan Assessment and Plan respiratory failure. Atelectasis. Renal insufficiency. Hypoxia. Pneumonia. Diabetes. Alzheimer's. DO NOT RESUSCITATE Problems: Clinical Quality Measures DVT/VTE Risk/Contraindication: Risk Factor Score Per Nursin RFS Level Per Nursing on Admit: 4+=Very High CHI AKERS DO Apr 29, 2017 07:39
[2017-04-29 07:56] LABS: ALBUMIN 3.5 GM/DL (3.2-4.5); BILIRUBIN,TOTAL 0.9 MG/DL (0.1-1.0); CALCIUM 8.4 MG/DL (8.5-10.1); CREATININE SERUM 1.65 MG/DL (0.60-1.30); POTASSIUM 4.3 MMOL/L (3.6-5.0); TOTAL PROTEIN 6.9 GM/DL (6.4-8.2)
[2017-04-29] MEDS ORDERED: VANCOMYCIN 1 GM/NS 250 ML IVPB IV NR ×2 (08:00)
[2017-04-29] MEDS ORDERED: ACETAMINOPHEN 650 MG SUPP (TYLENOL) PR PRN (08:00)
--- NOTE | 2017-04-29 08:04 | Diagnostic Imaging Report ---
INDICATION: Pneumonia with hypoxemia. Portable upright view of the chest is obtained. 0744 hours. Since examination of earlier in the day, there has been increase in airspace disease in the right parahilar region. Left basilar infiltrate persist. There is no evidence of pneumothorax or other significant change. IMPRESSION: Worsening of pulmonary infiltrate likely due to pneumonia or superimposed edema. Dictated by: Dictated on workstation # [id number]
[2017-04-29 08:14] LABS: ABG BASE EXCESS -0.7 MMOL/L (-2.5-2.5); ABG HCO3 24 MMOL/L (23-27); ABG OXYGEN SATURATION 94 % (94-100); ABG PCO2 50 MMHG (35-45); ABG PO2 78 MMHG (79-93); ABG TCO2 25.7 MMOL/L (21.0-31.0)
[2017-04-29 08:17] LABS: TROPONIN I < 0.30 NG/ML (<0.30)
[2017-04-29 08:18] LABS: MAGNESIUM 1.6 MG/DL (1.8-2.4)
[2017-04-29 08:18] LABS: ABG PH 7.32 (7.37-7.43); ALLENS TEST YES-POS; PATIENT TEMP 101.9
[2017-04-29] MEDS ORDERED: RT-ALBUTEROL/IPRATROPIUM 3 ML (DUONEB) VIAL IH SCH (09:00)
[2017-04-29 09:02] LABS: BILIRUBIN,URINE NEGATIVE (NEGATIVE); KETONES,URINE NEGATIVE (NEGATIVE); LEUKOCYTE ESTERASE ,URINE NEGATIVE (NEGATIVE); NITRITE,URINE NEGATIVE (NEGATIVE); PH,URINE 6 (5-9); PROTEIN,URINE NEGATIVE (NEGATIVE); UROBILINOGEN,URINE NORMAL (NORMAL)
[2017-04-29 09:11] LABS: SQUAMOUS EPITHELIAL CELL,UR 0-2 /HPF
[2017-04-29] MEDS: ENOXAPARIN 40 MG/0.4 ML (LOVENOX) SYR SC SCH (09:13)
[2017-04-29] MEDS ORDERED: BISA10SU6 RC (11:25)
[2017-04-29] MEDS ORDERED: ALBU1.25 NEB (11:25)
[2017-04-29] MEDS ORDERED: ACET325T38 PO (11:25)
[2017-04-29] MEDS ORDERED: ALPR0.25 PO (11:25)
[2017-04-29] MEDS ORDERED: INSU100I14 SQ (11:25)
[2017-04-29] MEDS ORDERED: MAG355OR16 PO (11:25)
[2017-04-29] MEDS ORDERED: CLON0.5T PO (11:25)
[2017-04-29] MEDS ORDERED: INSU100I32 SQ (11:25)
[2017-04-29] MEDS ORDERED: POLY17PO6 PO (11:25)
[2017-04-29] MEDS: RT-ALBUTEROL/IPRATROPIUM 3 ML (DUONEB) VIAL IH SCH ×5 (11:29→22:04)
[2017-04-29] MEDS ORDERED: POTA-51 PO (11:31)
[2017-04-29] MEDS ORDERED: SIMV20TA3 PO (11:31)
[2017-04-29] MEDS ORDERED: FOLI1TAB24 PO (11:31)
[2017-04-29] MEDS ORDERED: GABA-488 PO (11:31)
[2017-04-29] MEDS ORDERED: CHOL200025 PO (11:31)
[2017-04-29] MEDS ORDERED: DONE10TA12 PO (11:31)
[2017-04-29] MEDS ORDERED: CYAN10006 PO (11:31)
[2017-04-29] MEDS ORDERED: FURO-125 PO (11:31)
[2017-04-29] MEDS ORDERED: DULO30CA3 PO (11:31)
[2017-04-29] MEDS ORDERED: GUAI600T86 PO (11:31)
[2017-04-29] MEDS ORDERED: DULO60CA6 PO (11:31)
[2017-04-29] MEDS ORDERED: OLAN5TAB3 PO (11:31)
[2017-04-29 11:45] VITALS: BP 119/55
[2017-04-29] MEDS: methylPREDNISolone 40 MG/ML (Solu-MEDROL) VIAL IV SCH ×3 (11:56→23:25)
[2017-04-29 16:05] VITALS: BP 121/65
[2017-04-29 20:15] VITALS: BP 136/66
[2017-04-30 00:10] VITALS: BP 136/67
[2017-04-30] MEDS: RT-ALBUTEROL/IPRATROPIUM 3 ML (DUONEB) VIAL IH SCH ×6 (02:36→21:35)
[2017-04-30 04:30] VITALS: BP 139/65
[2017-04-30] MEDS: inSUlin (REGULAR) HUMAN 1 UNIT/0.01 ML (CHARGE PER UNIT) SC SCH ×4 (05:54→20:20)
[2017-04-30] MEDS: methylPREDNISolone 40 MG/ML (Solu-MEDROL) VIAL IV SCH (06:28)
[2017-04-30] MEDS: NS IV 1000 ML 1,000 ML IV SCH ×2 (06:29→18:41)
[2017-04-30 06:48] LABS: BASOPHILS % (AUTO) 0 % (0-10); EOSINOPHILS % (AUTO) 0 % (0-10); LYMPHOCYTES # (AUTO) 0.5 X 10^3 (1.0-4.0); LYMPHOCYTES % (AUTO) 4 % (12-44); MEAN CORPUSCULAR HEMOGLOBIN 29 PG (25-34); MEAN CORPUSCULAR HGB CONC 32 G/DL (32-36); MEAN CORPUSCULAR VOLUME 89 FL (80-99); MEAN PLATELET VOLUME 11.6 FL (7.4-10.4); MONOCYTES # (AUTO) 0.4 X 10^3 (0.0-1.0); MONOCYTES % (AUTO) 3 % (0-12); NEUTROPHILS # (AUTO) 11.7 X 10^3 (1.8-7.8); NEUTROPHILS % (AUTO) 93 % (42-75); PLATELET COUNT 163 10^3/uL (130-400); RED BLOOD COUNT 4.17 10^6/uL (4.35-5.85); RED CELL DISTRIBUTION WIDTH 13.7 % (10.0-14.5); WHITE BLOOD COUNT 12.6 10^3/uL (4.3-11.0)
[2017-04-30 07:06] LABS: CALCIUM 8.7 MG/DL (8.5-10.1); CREATININE SERUM 1.78 MG/DL (0.60-1.30); POTASSIUM 3.8 MMOL/L (3.6-5.0)
[2017-04-30 07:24] VITALS: BP 144/64
--- NOTE | 2017-04-30 07:30 | Progress Note (SOAP) ---
Subjective Time Seen by Provider: 07:25 Objective Exam Vital Signs Date Time Temp Pulse Resp B/P (MAP) Pulse Ox O2 Delivery O2 Flow Rate FiO2 04/30/17 07:24 97.5 58 16 144/64 93 NIV Bilevel 60.00 04/30/17 06:41 57 14 92 60.00 04/30/17 04:30 98.3 61 14 139/65 94 NIV Bilevel 60.00 04/30/17 04:23 60 16 92 60.00 04/30/17 02:37 52 15 92 60.00 04/30/17 00:10 98.1 57 14 136/67 93 NIV Bilevel 60.00 04/30/17 00:01 16 60.00 04/29/17 22:04 58 17 92 60.00 04/29/17 21:00 96 NIV Bilevel 60.00 04/29/17 20:15 97.4 71 18 136/66 92 High Flow N/C 15.00 04/29/17 19:12 58 18 93 60.00 04/29/17 16:05 97.3 57 16 121/65 96 NIV Bilevel 60.00 04/29/17 14:40 92 Non Rebreather 15.00 04/29/17 11:45 99.6 66 18 119/55 93 NIV Bilevel 60.00 04/29/17 11:31 68 19 91 60.00 04/29/17 11:00 100.1 04/29/17 09:20 78 26 90 60.00 04/29/17 09:00 96 NIV Bilevel 60.00 04/29/17 07:37 101.4 78 27 128/62 93 Non Rebreather 15.00 Capillary Refill : Less Than 3 SecondsLess Than 3 Seconds General Appearance: No Apparent Distress, WD/WN HEENT: Normal ENT Inspection Neck: Normal Inspection Respiratory: Lungs Clear, No Accessory Muscle Use, No Respiratory Distress, Other (breath sounds improved and clear) Cardiovascular: Regular Rate, Rhythm Gastrointestinal: non tender, soft Results Lab Laboratory Tests 04/30/17 06:18 Laboratory Tests 04/29/17 07:29: White Blood Count 13.0H, Red Blood Count 4.97, Hemoglobin 14.2, Hematocrit 44, Mean Corpuscular Volume 88, Mean Corpuscular Hemoglobin 29, Mean Corpuscular Hemoglobin Concent 32, Red Cell Distribution Width 14.0, Platelet Count 227, Mean Platelet Volume 10.9H, Sodium Level 140, Potassium Level 4.3, Chloride Level 106, Carbon Dioxide Level 27, Anion Gap 7, Blood Urea Nitrogen 23H, Creatinine 1.65H, Estimat Glomerular Filtration Rate 40, BUN/Creatinine Ratio 14 , Glucose Level 194H, Calcium Level 8.4L, Magnesium Level 1.6L, Total Bilirubin 0.9, Aspartate Amino Transf (AST/SGOT) 20, Alanine Aminotransferase (ALT/SGPT) 18, Alkaline Phosphatase 90, Troponin I < 0.30, B-Type Natriuretic Peptide 30.8 , Total Protein 6.9, Albumin 3.5 04/29/17 08:05: Blood Gas Puncture Site RT RADIAL, Blood Gas Patient Temperature 101.9, Arterial Blood pH 7.32*L, Arterial Blood Partial Pressure CO2 50H, Arterial Blood Partial Pressure O2 78L, Arterial Blood HCO3 24, Arterial Blood Total CO2 25.7, Arterial Blood Oxygen Saturation 94, Arterial Blood Base Excess -0.7, Darian Test YES-POS, Blood Gas Ventilator Setting NO, Blood Gas Inspired Oxygen 15L 04/29/17 08:14: Lactic Acid Level 2.68*H 04/29/17 10:30: Lactic Acid Level 2.46*H 04/29/17 11:01: Glucometer 236H 04/29/17 19:39: Glucometer 287H 04/29/17 21:33: Glucometer 444*H 04/30/17 04:46: Glucometer 393H 04/30/17 06:18: White Blood Count 12.6H, Red Blood Count 4.17L, Hemoglobin 12.0L, Hematocrit 37L , Mean Corpuscular Volume 89, Mean Corpuscular Hemoglobin 29, Mean Corpuscular Hemoglobin Concent 32, Red Cell Distribution Width 13.7, Platelet Count 163, Mean Platelet Volume 11.6H, Neutrophils (%) (Auto) 93H, Lymphocytes (%) (Auto) 4L, Monocytes (%) (Auto) 3, Eosinophils (%) (Auto) 0, Basophils (%) (Auto) 0, Neutrophils # (Auto) 11.7H, Lymphocytes # (Auto) 0.5L, Monocytes # (Auto) 0.4, Eosinophils # (Auto) 0.0, Basophils # (Auto) 0.0, Sodium Level 143, Potassium Level 3.8, Chloride Level 111H, Carbon Dioxide Level 21, Anion Gap 11, Blood Urea Nitrogen 30H, Creatinine 1.78H, Estimat Glomerular Filtration Rate 37, BUN/ Creatinine Ratio 17, Glucose Level 441*H, Calcium Level 8.7 Assessment/Plan Assessment/Plan Assess & Plan/Chief Complaint blood sugars elevated due to Solu-Medrol. GFR 37. White blood cells coming down at 12,600. Patient looking better today . Lungs clear. Pneumonia. Hypoxia. Dementia. Patient work in progress Clinical Quality Measures DVT/VTE Risk/Contraindication: Risk Factor Score Per Nursin RFS Level Per Nursing on Admit: 4+=Very High VI AKERS DO Apr 30, 2017 07:30
[2017-04-30] MEDS ORDERED: VANCOMYCIN 1250 MG/NS 250 ML IVPB IV SCH ×2 (08:00)
--- NOTE | 2017-04-30 08:05 | Pulmonary Progress Note ---
Exam Exam Vital Signs Date Time Temp Pulse Resp B/P (MAP) Pulse Ox O2 Delivery O2 Flow Rate FiO2 04/30/17 07:24 97.5 58 16 144/64 93 NIV Bilevel 60.00 04/30/17 06:41 57 14 92 60.00 04/30/17 04:30 98.3 61 14 139/65 94 NIV Bilevel 60.00 04/30/17 04:23 60 16 92 60.00 04/30/17 02:37 52 15 92 60.00 04/30/17 00:10 98.1 57 14 136/67 93 NIV Bilevel 60.00 04/30/17 00:01 16 60.00 04/29/17 22:04 58 17 92 60.00 04/29/17 21:00 96 NIV Bilevel 60.00 04/29/17 20:15 97.4 71 18 136/66 92 High Flow N/C 15.00 04/29/17 19:12 58 18 93 60.00 04/29/17 16:05 97.3 57 16 121/65 96 NIV Bilevel 60.00 04/29/17 14:40 92 Non Rebreather 15.00 04/29/17 11:45 99.6 66 18 119/55 93 NIV Bilevel 60.00 04/29/17 11:31 68 19 91 60.00 04/29/17 11:00 100.1 04/29/17 09:20 78 26 90 60.00 04/29/17 09:00 96 NIV Bilevel 60.00 General Appearance: No Apparent Distress, WD/WN HEENT: Normal ENT Inspection Neck: Normal Inspection Respiratory: Lungs Clear, No Accessory Muscle Use, No Respiratory Distress, Other (breath sounds improved and clear) Cardiovascular: Regular Rate, Rhythm Capillary Refill: Less Than 3 Seconds Gastrointestinal: non tender, soft Results Lab Laboratory Tests 04/29/17 00:55 04/29/17 07:29 04/30/17 06:18 Assessment/Plan Assessment/Plan HCAP -Continue cefepime, vancomycin Respiratory failure - pt just received 40mg of IV lasix -Oxygen, BiPAP -SVNS q4 -Check ABG -start solumedrol 40 IV Q 6 Atelectasis CXR and labs reviewed 232 Clinical Quality Measures DVT/VTE Risk/Contraindication: Risk Factor Score Per Nursin RFS Level Per Nursing on Admit: 4+=Very High ILENE WINKLER DO Apr 30, 2017 08:05
[2017-04-30] MEDS: ENOXAPARIN 40 MG/0.4 ML (LOVENOX) SYR SC SCH (09:52)
[2017-04-30] MEDS: ALPRAZolam 0.25 MG (XANAX) TAB PO PRN (09:52)
[2017-04-30] MEDS: GABAPENTIN 300 MG (NEURONTIN) CAP PO SCH ×3 (09:52→20:13)
[2017-04-30] MEDS: clonazePAM 0.5 MG (KlonoPIN) TAB PO SCH ×2 (09:59→20:13)
[2017-04-30 12:38] VITALS: BP 137/62
[2017-04-30] MEDS: CEFEPIME 2 GM/NS 50 ML IVPB IV SCH ×2 (14:19)
[2017-04-30 15:20] VITALS: BP 118/61
--- NOTE | 2017-04-30 17:44 | Diagnostic Imaging Report ---
INDICATION: Left lower lobe pneumonia, hypoxia. COMPARISON STUDY: Chest radiograph from yesterday. FINDINGS: Bilateral pulmonary infiltrates have improved. Infiltrates are greatest centrally and may be due to edema. Cardiomegaly is stable. There are no pleural effusions. IMPRESSION: Slight improvement of the pulmonary infiltrates. These are greatest centrally and may be due to edema. Dictated by: Dictated on workstation # [id number]
[2017-04-30 19:19] VITALS: BP 121/57
[2017-04-30] MEDS: OLANZapine 5 MG (ZyPREXA) TAB PO SCH (20:13)
[2017-04-30] MEDS: DULoxetine 30 MG (CYMBALTA) CAP PO SCH (20:13)
[2017-04-30] MEDS: DONEPEZIL 10 MG (ARICEPT) TAB PO SCH (20:13)
[2017-05-01] VITALS: BP 123/58
[2017-05-01] MEDS: morphine INJ 10 MG/ML 1ML (SYR OR VIAL) IVP PRN ×3 (00:03→18:26)
[2017-05-01] MEDS: RT-ALBUTEROL/IPRATROPIUM 3 ML (DUONEB) VIAL IH SCH ×6 (01:39→21:41)
[2017-05-01 04:00] VITALS: BP 133/65
[2017-05-01] MEDS: NS IV 1000 ML 1,000 ML IV SCH (04:49)
[2017-05-01 05:10] LABS: BASOPHILS % (AUTO) 0 % (0-10); EOSINOPHILS % (AUTO) 0 % (0-10); LYMPHOCYTES # (AUTO) 0.5 X 10^3 (1.0-4.0); LYMPHOCYTES % (AUTO) 5 % (12-44); MEAN CORPUSCULAR HEMOGLOBIN 29 PG (25-34); MEAN CORPUSCULAR HGB CONC 32 G/DL (32-36); MEAN CORPUSCULAR VOLUME 91 FL (80-99); MONOCYTES # (AUTO) 0.8 X 10^3 (0.0-1.0); MONOCYTES % (AUTO) 8 % (0-12); NEUTROPHILS # (AUTO) 9.6 X 10^3 (1.8-7.8); NEUTROPHILS % (AUTO) 87 % (42-75); PLATELET COUNT 161 10^3/uL (130-400); RED BLOOD COUNT 3.73 10^6/uL (4.35-5.85); RED CELL DISTRIBUTION WIDTH 13.9 % (10.0-14.5)
[2017-05-01] MEDS: inSUlin (REGULAR) HUMAN 1 UNIT/0.01 ML (CHARGE PER UNIT) SC SCH ×4 (05:17→21:31)
[2017-05-01] MEDS ORDERED: TROUGH ORDER-PHARMACY XX NR (07:00)
[2017-05-01 08:00] VITALS: BP 145/65
[2017-05-01 08:15] LABS: CALCIUM 8.3 MG/DL (8.5-10.1); CREATININE SERUM 1.54 MG/DL (0.60-1.30); POTASSIUM 4.7 MMOL/L (3.6-5.0)
[2017-05-01 08:16] LABS: ALBUMIN 3.1 GM/DL (3.2-4.5); BILIRUBIN,TOTAL 0.3 MG/DL (0.1-1.0); TOTAL PROTEIN 6.2 GM/DL (6.4-8.2)
[2017-05-01] MEDS ORDERED: inSUlin ASPART (NovoLOG) 1 UNIT/0.01 ML (CHARGE PER UNIT) SC NR (08:45)
[2017-05-01] MEDS: VANCOMYCIN INJECTION 1,750 MG in NS IV 500 ML 500 ML IV SCH (08:53)
--- NOTE | 2017-05-01 09:01 | Diagnostic Imaging Report ---
EXAMINATION: Chest radiograph, portable AP view. DATE: May 01, 2017 at 0534 hours. INDICATION: 87-year-old male, respiratory failure. COMPARISON: April 30, 2017. FINDINGS: Stable overall appearance of the cardio mediastinal silhouette given differences in lung volumes and technique. There is no identified pneumothorax. There is no large pleural effusion. There are bilateral predominantly interstitial opacities which are unchanged from prior exam. IMPRESSION: 1. Unchanged bilateral predominantly interstitial opacities. Differential diagnostic considerations include pulmonary edema and atypical infection. 2. Mild interval increase in lung volumes. Dictated by: Dictated on workstation # [id number]
[2017-05-01] MEDS: GABAPENTIN 300 MG (NEURONTIN) CAP PO SCH ×3 (09:33→21:00)
[2017-05-01] MEDS: clonazePAM 0.5 MG (KlonoPIN) TAB PO SCH ×2 (09:33→21:00)
[2017-05-01] MEDS: ENOXAPARIN 40 MG/0.4 ML (LOVENOX) SYR SC SCH (09:33)
--- NOTE | 2017-05-01 11:13 | Progress Note-Hospitalist ---
Subjective HPI/CC On Admission Date Seen by Provider: May 01, 2017 Time Seen by Provider: 10:30 Subjective/Events-last exam patient had increased respiratory distress overnight. This responded to morphine and this morning is sitting up watching TV on Vapotherm with sats in the 90-93 percent. Chest x-ray shows possible fluid overload and atelectasis in addition to pneumonia.. Patient is a poor historian has no complaints. He did have a large bowel movement per nursing this morning Review of Systems Pulmonary: Dyspnea Neurological: Confusion Objective Exam Vital Signs Vital Sign - Last 12Hours 04/29/17 00:20 Temp 97.5 Pulse 61 Resp 24 B/P (MAP) 141/86 Pulse Ox 95 O2 Delivery Non Rebreather O2 Flow Rate 15.00 FiO2 100 Capillary Refill : Less Than 3 SecondsLess Than 3 Seconds General Appearance: Chronically ill Respiratory: Decreased Breath Sounds, Rhonci Cardiovascular: Tachycardia Gastrointestinal: Abnormal Bowel Sounds, Distended Rectal: Deferred Extremity: Pedal Edema Neurologic/Psychiatric: Alert, Disoriented x3 Results/Procedures Lab Laboratory Tests 05/01/17 04:26 05/01/17 07:46 Assessment/Plan Assessment and Plan Assess & Plan/Chief Complaint HCAP -Continue cefepime, vancomycin Respiratory failure - given additional dose of Lasix and Hep-Lock IV fluids -Oxygen, Vapotherm, morphine as needed, Atelectasis -Unable to achieve incentive spirometry Dementia with confusion type II diabetes out of control secondary to not being on his chronic medications. He has a marginal oral intake but we'll start him on Levemir this evening. He is off Solu-Medrol secondary to the severe hyperglycemia. Prognosis is guarded 255 DMITRY BAEZ MD May 01, 2017 11:13
[2017-05-01] MEDS ORDERED: FUROSEMIDE 40 MG/4 ML INJ (LASIX) IVP NR (11:15)
[2017-05-01] MEDS: CEFEPIME 2 GM/NS 50 ML IVPB IV SCH ×2 (11:51)
[2017-05-01 12:00] VITALS: BP 139/64
[2017-05-01 15:35] VITALS: BP 146/65
[2017-05-01] MEDS: ALPRAZolam 0.25 MG (XANAX) TAB PO PRN (15:43)
[2017-05-01 19:55] VITALS: BP 127/57
[2017-05-01] MEDS: DULoxetine 30 MG (CYMBALTA) CAP PO SCH (21:00)
[2017-05-01] MEDS: DONEPEZIL 10 MG (ARICEPT) TAB PO SCH (21:00)
[2017-05-01] MEDS: OLANZapine 5 MG (ZyPREXA) TAB PO SCH (21:00)
[2017-05-01] MEDS: inSUlin DETERMIR 1 UNIT/0.01 ML (LEVEMIR) CHARGE PER UNIT SQ SCH (21:32)
[2017-05-02] VITALS: BP 128/64
[2017-05-02] MEDS: RT-ALBUTEROL/IPRATROPIUM 3 ML (DUONEB) VIAL IH SCH ×6 (01:30→21:30)
[2017-05-02 04:00] VITALS: BP 157/70
[2017-05-02 05:22] LABS: MEAN PLATELET VOLUME 11.2 FL (7.4-10.4); RED BLOOD COUNT 4.04 10^6/uL (4.35-5.85); RED CELL DISTRIBUTION WIDTH 14.1 % (10.0-14.5); WHITE BLOOD COUNT 11.1 10^3/uL (4.3-11.0)
[2017-05-02 05:44] LABS: CALCIUM 8.7 MG/DL (8.5-10.1); CREATININE SERUM 1.42 MG/DL (0.60-1.30); POTASSIUM 3.6 MMOL/L (3.6-5.0)
[2017-05-02] MEDS: inSUlin (REGULAR) HUMAN 1 UNIT/0.01 ML (CHARGE PER UNIT) SC SCH ×4 (06:05→21:00)
[2017-05-02 07:24] VITALS: BP 156/70
[2017-05-02] MEDS: VANCOMYCIN INJECTION 1,750 MG in NS IV 500 ML 500 ML IV SCH (08:07)
[2017-05-02] MEDS: GABAPENTIN 300 MG (NEURONTIN) CAP PO SCH ×3 (08:45→21:00)
[2017-05-02] MEDS: ENOXAPARIN 40 MG/0.4 ML (LOVENOX) SYR SC SCH (08:45)
[2017-05-02] MEDS: clonazePAM 0.5 MG (KlonoPIN) TAB PO SCH ×2 (08:45→21:00)
--- NOTE | 2017-05-02 09:29 | Diagnostic Imaging Report ---
EXAMINATION: Chest radiograph, portable AP view. DATE: May 02, 2017 at 0909 hours. INDICATION: 87-year-old male, followup for pneumonia. Hypoxia. COMPARISON: May 01, 2017. FINDINGS: Stable overall appearance of the cardiomediastinal silhouette. There is new airspace consolidation in the right upper lobe and right lower lobe. There is streaky opacity in the medial left lung base which is grossly unchanged. There is no identified pneumothorax. There is no large pleural effusion. Lung volumes are somewhat low. IMPRESSION: 1. New right upper lobe and right lower lobe airspace consolidation concerning for pneumonia or other alveolar consolidative process. Recommend correlation clinically and followup to resolution. Dictated by: Dictated on workstation # [id number]
--- NOTE | 2017-05-02 10:53 | Progress Note-Hospitalist ---
Subjective HPI/CC On Admission Date Seen by Provider: May 02, 2017 Time Seen by Provider: 10:00 Subjective/Events-last exam patient remains unhelpful in terms of history. He has moderate to severe dementia but has no complaints of pain or any other abnormalities. Chest x-ray shows the development of a right upper lobe pneumonia. Concern is that he is developing aspiration. Will have the nurse do a bedside swallowing evaluation and if there is any evidence of choking will go ahead and get a formal speech consult in the morning which I may do anyway Objective Exam Vital Signs Vital Sign - Last 12Hours 04/29/17 00:20 Temp 97.5 Pulse 61 Resp 24 B/P (MAP) 141/86 Pulse Ox 95 O2 Delivery Non Rebreather O2 Flow Rate 15.00 FiO2 100 Capillary Refill : Less Than 3 SecondsLess Than 3 Seconds General Appearance: Chronically ill Respiratory: No Respiratory Distress, Decreased Breath Sounds, Rhonci Cardiovascular: Regular Rate, Rhythm, Systolic Murmur Gastrointestinal: Soft, Distended Rectal: Deferred Neurologic/Psychiatric: Alert, Disoriented x3 Skin: Normal Color, Warm/Dry Results/Procedures Lab Laboratory Tests 05/02/17 05:00 Assessment/Plan Assessment and Plan Assess & Plan/Chief Complaint HCAP -Continue cefepime, vancomycin -the patient has developed an upper lobe pneumonia suspicious for aspiration we'll get a speech eval tomorrow Respiratory failure - given additional dose of Lasix and Hep-Lock IV fluids -Oxygen, Vapotherm, morphine as needed, Atelectasis -Unable to achieve incentive spirometry Dementia with confusion type II diabetes out of control secondary to not being on his chronic medications. guarded on Levemir past evening. He is off Solu-Medrol secondary to the severe hyperglycemia. this is greatly improved this morning Prognosis is guarded Hypernatremia- off iv fluids- 255 DMITRY BAEZ MD May 02, 2017 10:53
[2017-05-02] MEDS: morphine INJ 10 MG/ML 1ML (SYR OR VIAL) IVP PRN (11:27)
[2017-05-02] MEDS: ALPRAZolam 0.25 MG (XANAX) TAB PO PRN (11:28)
[2017-05-02 12:00] VITALS: BP 154/67
[2017-05-02] MEDS: CEFEPIME 2 GM/NS 50 ML IVPB IV SCH ×2 (12:07)
[2017-05-02 15:20] VITALS: BP 140/65
[2017-05-02 19:30] VITALS: BP 154/74
[2017-05-02] MEDS: DULoxetine 30 MG (CYMBALTA) CAP PO SCH (21:00)
[2017-05-02] MEDS: DONEPEZIL 10 MG (ARICEPT) TAB PO SCH (21:00)
[2017-05-02] MEDS: OLANZapine 5 MG (ZyPREXA) TAB PO SCH (21:00)
[2017-05-02] MEDS: inSUlin DETERMIR 1 UNIT/0.01 ML (LEVEMIR) CHARGE PER UNIT SQ SCH (22:28)
[2017-05-03] VITALS (7 sets, daily range): BP systolic 140–189; BP diastolic 65–76
[2017-05-03] MEDS: RT-ALBUTEROL/IPRATROPIUM 3 ML (DUONEB) VIAL IH SCH ×6 (01:47→21:20)
[2017-05-03] MEDS: morphine INJ 10 MG/ML 1ML (SYR OR VIAL) IVP PRN ×2 (01:51→17:43)
[2017-05-03] MEDS: inSUlin (REGULAR) HUMAN 1 UNIT/0.01 ML (CHARGE PER UNIT) SC SCH ×4 (05:35→20:45)
[2017-05-03] MEDS ORDERED: TROUGH ORDER-PHARMACY XX NR (07:00)
[2017-05-03 07:10] LABS: MEAN PLATELET VOLUME 10.4 FL (7.4-10.4); RED BLOOD COUNT 4.16 10^6/uL (4.35-5.85); RED CELL DISTRIBUTION WIDTH 13.9 % (10.0-14.5); WHITE BLOOD COUNT 10.4 10^3/uL (4.3-11.0)
[2017-05-03 07:24] LABS: CREATININE SERUM 1.2 MG/DL (0.60-1.30)
--- NOTE | 2017-05-03 07:44 | Progress Note (SOAP) ---
Subjective Time Seen by Provider: 07:40 Subjective/Events-last exam patient chest x-ray yesterday shows new pneumonia . Consider aspiration. Consider aspiration evaluated by speech therapy. Dementia. Diabetes. To start IV. Objective Exam Vital Signs Date Time Temp Pulse Resp B/P (MAP) Pulse Ox O2 Delivery O2 Flow Rate FiO2 05/03/17 04:37 97.0 72 20 140/65 95 NIV Bilevel 05/03/17 04:05 68 14 95 50.00 05/03/17 01:47 86 20 92 50.00 05/03/17 00:00 97.4 74 18 155/66 91 Vapotherm 65.00 25.00 05/02/17 21:30 91 Vapotherm 23.00 65 05/02/17 20:15 Vapotherm 05/02/17 19:30 99.1 71 18 154/74 92 Vapotherm 05/02/17 19:01 94 Vapotherm 25.00 70 05/02/17 15:20 98.9 74 16 140/65 92 Vapotherm 05/02/17 14:50 93 Vapotherm 25.00 70 05/02/17 12:00 98.9 72 18 154/67 96 Vapotherm 05/02/17 12:00 98.9 05/02/17 11:40 70 94 70 05/02/17 11:37 94 Vapotherm 25.00 70 05/02/17 08:00 Vapotherm 25.00 80 Capillary Refill : Less Than 3 SecondsLess Than 3 Seconds General Appearance: No Apparent Distress, WD/WN HEENT: Normal ENT Inspection Neck: Normal Inspection Respiratory: No Accessory Muscle Use, No Respiratory Distress, Other (patient on BiPAP) Cardiovascular: Regular Rate, Rhythm Gastrointestinal: non tender, soft Results Lab Laboratory Tests 05/03/17 07:03 Laboratory Tests 05/02/17 10:49: Glucometer 153H 05/02/17 16:15: Glucometer 162H 05/02/17 21:00: Glucometer 199H 05/03/17 05:33: Glucometer 170H 05/03/17 07:03: White Blood Count 10.4, Red Blood Count 4.16L, Hemoglobin 12.0L, Hematocrit 38L , Mean Corpuscular Volume 91, Mean Corpuscular Hemoglobin 29, Mean Corpuscular Hemoglobin Concent 32, Red Cell Distribution Width 13.9, Platelet Count 202, Mean Platelet Volume 10.4, Sodium Level 147H, Potassium Level 4.0, Chloride Level 111H, Carbon Dioxide Level 30, Anion Gap 6, Blood Urea Nitrogen 32H, Creatinine 1.20, Estimat Glomerular Filtration Rate 58, BUN/Creatinine Ratio 27 , Glucose Level 168H, Calcium Level 9.0, Vancomycin Level Trough 19.8 Microbiology 04/29/17 Blood Culture - Preliminary, Resulted No growth Assessment/Plan Assessment/Plan Assess & Plan/Chief Complaint blood sugars elevated due to Solu-Medrol. GFR 37. White blood cells coming down at 12,600. Patient looking better today . Lungs clear. Pneumonia. Hypoxia. Dementia. Patient work in progress. . 05/03/17. New pneumonia consider aspiration. Hypoxia. Diabetes better or Solu-Medrol. Dementia Clinical Quality Measures DVT/VTE Risk/Contraindication: Risk Factor Score Per Nursin RFS Level Per Nursing on Admit: 4+=Very High VI AKERS DO May 03, 2017 07:44
--- NOTE | 2017-05-03 07:45 | Pulmonary Progress Note ---
Subjective Time Seen by Provider: 07:44 Subjective/Events-last exam Pt appears to be improving. No complications noted. Exam Exam Vital Signs Date Time Temp Pulse Resp B/P (MAP) Pulse Ox O2 Delivery O2 Flow Rate FiO2 05/03/17 04:37 97.0 72 20 140/65 95 NIV Bilevel 05/03/17 04:05 68 14 95 50.00 05/03/17 01:47 86 20 92 50.00 05/03/17 00:00 97.4 74 18 155/66 91 Vapotherm 65.00 25.00 05/02/17 21:30 91 Vapotherm 23.00 65 05/02/17 20:15 Vapotherm 05/02/17 19:30 99.1 71 18 154/74 92 Vapotherm 05/02/17 19:01 94 Vapotherm 25.00 70 05/02/17 15:20 98.9 74 16 140/65 92 Vapotherm 05/02/17 14:50 93 Vapotherm 25.00 70 05/02/17 12:00 98.9 72 18 154/67 96 Vapotherm 05/02/17 12:00 98.9 05/02/17 11:40 70 94 70 05/02/17 11:37 94 Vapotherm 25.00 70 05/02/17 08:00 Vapotherm 25.00 80 General Appearance: Chronically ill HEENT: Normal ENT Inspection Neck: Normal Inspection Respiratory: No Respiratory Distress, Decreased Breath Sounds, Rhonci Cardiovascular: Regular Rate, Rhythm, Systolic Murmur Capillary Refill: Less Than 3 Seconds Gastrointestinal: normal bowel sounds, non tender, soft Extremity: Pedal Edema Neurologic/Psychiatric: Alert, Disoriented x3 Skin: Normal Color, Warm/Dry Results Lab Laboratory Tests 05/01/17 07:46 05/02/17 05:00 05/03/17 07:03 Assessment/Plan Assessment/Plan HCAP probable aspiration - pt is improving on current Abx -Continue cefepime, vancomycin -Cultures are negative Respiratory failure - pt just received 40mg of IV lasix -Oxygen, BiPAP -SVNS q4 - solumedrol 40 IV Q 6 Atelectasis CXR and labs reviewed 232 Clinical Quality Measures DVT/VTE Risk/Contraindication: Risk Factor Score Per Nursin RFS Level Per Nursing on Admit: 4+=Very High ILENE WINKLER DO May 03, 2017 07:45
[2017-05-03] MEDS: GABAPENTIN 300 MG (NEURONTIN) CAP PO SCH ×3 (08:45→20:45)
[2017-05-03] MEDS: clonazePAM 0.5 MG (KlonoPIN) TAB PO SCH ×2 (08:45→20:45)
[2017-05-03] MEDS: ENOXAPARIN 40 MG/0.4 ML (LOVENOX) SYR SC SCH (08:49)
[2017-05-03] MEDS: 1/2 NS IV SOLUTION 1,000 ML IV SCH (08:49)
[2017-05-03] MEDS: CEFEPIME 2 GM/NS 50 ML IVPB IV SCH ×2 (08:49)
--- NOTE | 2017-05-03 09:45 | Diagnostic Imaging Report ---
EXAMINATION: Portable upright radiograph of the chest. INDICATION: Pneumonia. COMPARISON: 05/02/2017. FINDINGS: There is improvement in the previously seen right upper lobe and right middle lobe infiltrates. There is suggestion of minimal vascular congestion, also improved from the previous exam. The heart size is enlarged. No effusion or pneumothorax. The mediastinum and uriel appear unremarkable. IMPRESSION: Improvement in the previously seen right upper lobe and right middle lobe infiltrates. Improving vascular congestion. Dictated by: Dictated on workstation # [id number]
--- NOTE | 2017-05-03 13:19 | Speech Therapy Progress Note ---
Therapy Progress Note Speech Pathology dysphagia consultation received and chart extensively reviewed. The speech pathologist met the respiratory therapist at the patient's room at 11:45 on this date. The respiratory therapist removed the patient from BiPAP and placed him on high flow nasal cannula. The patient's saturations remained stable, therefore, speech pathology was allowed to continue with the dysphagia assessment. The patient was positioned upright in bed. Regardless of maximum clinician and respiratory therapist's verbal cueing and gentle tactile prompts, the patient did not demonstrate appropriate alertness levels. The patient opened one eye, however, promptly closed. A spoon was placed at the patient's lips of three occasions. The patient made no attempts to close lips around spoon or remove material from the spoon. Due to the patient's lack of participation, the assessment was terminated at this time. The patient remained on high flow nasal cannula with the respiratory therapist in the room. Speech pathology will reattempt as the patient is appropriate. At this time, the clinician recommends the patient remain NPO. GERARDO BOYD May 03, 2017 13:19
[2017-05-03] MEDS ORDERED: VANCOMYCIN INJECTION 1,500 MG in NS IV 500 ML 500 ML IV SCH (16:00)
[2017-05-03] MEDS: OLANZapine 5 MG (ZyPREXA) TAB PO SCH (20:45)
[2017-05-03] MEDS: DULoxetine 30 MG (CYMBALTA) CAP PO SCH (20:46)
[2017-05-03] MEDS: DONEPEZIL 10 MG (ARICEPT) TAB PO SCH (20:46)
[2017-05-04 00:36] VITALS: BP 134/72
[2017-05-04] MEDS: 1/2 NS IV SOLUTION 1,000 ML IV SCH ×3 (01:13→19:04)
[2017-05-04] MEDS: RT-ALBUTEROL/IPRATROPIUM 3 ML (DUONEB) VIAL IH SCH ×6 (02:05→23:26)
[2017-05-04 04:13] VITALS: BP 166/66
[2017-05-04] MEDS: inSUlin (REGULAR) HUMAN 1 UNIT/0.01 ML (CHARGE PER UNIT) SC SCH ×4 (06:22→19:28)
[2017-05-04 06:36] LABS: BASOPHILS % (AUTO) 0 % (0-10); EOSINOPHILS # (AUTO) 0.2 10^3/uL (0.0-0.3); EOSINOPHILS % (AUTO) 1 % (0-10); LYMPHOCYTES # (AUTO) 0.9 X 10^3 (1.0-4.0); LYMPHOCYTES % (AUTO) 7 % (12-44); MEAN CORPUSCULAR HEMOGLOBIN 29 PG (25-34); MEAN CORPUSCULAR HGB CONC 32 G/DL (32-36); MEAN CORPUSCULAR VOLUME 91 FL (80-99); MONOCYTES # (AUTO) 1.4 X 10^3 (0.0-1.0); MONOCYTES % (AUTO) 10 % (0-12); NEUTROPHILS # (AUTO) 11.7 X 10^3 (1.8-7.8); NEUTROPHILS % (AUTO) 82 % (42-75); PLATELET COUNT 213 10^3/uL (130-400); RED BLOOD COUNT 4.21 10^6/uL (4.35-5.85); RED CELL DISTRIBUTION WIDTH 13.4 % (10.0-14.5); WHITE BLOOD COUNT 14.2 10^3/uL (4.3-11.0)
[2017-05-04 07:03] LABS: ANION GAP 11 MMOL/L (5-14); BLOOD UREA NITROGEN 30 MG/DL (7-18); BUN/CREATININE RATIO 28; CALCIUM 9.3 MG/DL (8.5-10.1); CARBON DIOXIDE 27 MMOL/L (21-32); CHLORIDE 109 MMOL/L (98-107); CREATININE SERUM 1.06 MG/DL (0.60-1.30); GFR ESTIMATED > 60; GLUCOSE 127 MG/DL (70-105); POTASSIUM 4.1 MMOL/L (3.6-5.0); SODIUM 147 MMOL/L (135-145)
--- NOTE | 2017-05-04 07:58 | Diagnostic Imaging Report ---
INDICATION: Pneumonia. COMPARISON: 05/03/2017. FINDINGS: Upright portable view of the chest is obtained. Heart size is normal. The pulmonary vessels appear unremarkable. There is no pneumothorax or pleural fluid. Lungs now appear clear. IMPRESSION: No acute abnormalities demonstrated on today's exam. Dictated by: Dictated on workstation # [id number]
[2017-05-04 08:00] VITALS: BP 164/77
--- NOTE | 2017-05-04 08:01 | Progress Note (SOAP) ---
Subjective Time Seen by Provider: 07:50 Subjective/Events-last exam patient did not do speech therapy yesterday. Patient does not open eyes or talk to anybody. To Try speech evaluation today Objective Exam Vital Signs Date Time Temp Pulse Resp B/P (MAP) Pulse Ox O2 Delivery O2 Flow Rate FiO2 05/04/17 06:49 93 Vapotherm 25.00 65 05/04/17 04:13 97.5 60 20 166/66 93 NIV Bilevel 05/04/17 02:05 56 58 93 45.00 05/04/17 00:36 98.9 61 15 134/72 92 NIV Bilevel 05/03/17 21:21 58 59 91 45.00 05/03/17 20:55 NIV Bilevel 45.00 05/03/17 20:29 97.7 65 18 168/73 97 NIV Bilevel 05/03/17 18:03 59 16 94 45.00 05/03/17 16:00 60 17 95 45.00 05/03/17 15:46 98.6 60 20 185/76 93 NIV Bilevel 05/03/17 14:20 53 26 93 45.00 05/03/17 14:20 93 NIV Bilevel 45 05/03/17 12:53 98.3 62 16 189/69 92 NIV Bilevel 05/03/17 12:01 59 21 93 45.00 05/03/17 11:46 94 Vapotherm 25.00 65 05/03/17 09:37 59 14 93 45.00 05/03/17 09:00 96 NIV Bilevel 60.00 05/03/17 08:16 97.0 54 14 162/75 93 NIV Bilevel Capillary Refill : Less Than 3 SecondsLess Than 3 Seconds General Appearance: No Apparent Distress, WD/WN HEENT: Normal ENT Inspection Results Lab Laboratory Tests 05/04/17 06:06 Laboratory Tests 05/03/17 10:47: Glucometer 136H 05/03/17 15:54: Glucometer 114H 05/03/17 20:42: Glucometer 111H 05/04/17 06:02: Glucometer 125H 05/04/17 06:06: White Blood Count 14.2H, Red Blood Count 4.21L, Hemoglobin 12.1L, Hematocrit 38L , Mean Corpuscular Volume 91, Mean Corpuscular Hemoglobin 29, Mean Corpuscular Hemoglobin Concent 32, Red Cell Distribution Width 13.4, Platelet Count 213, Mean Platelet Volume 11.0H, Neutrophils (%) (Auto) 82H, Lymphocytes (%) (Auto) 7L, Monocytes (%) (Auto) 10, Eosinophils (%) (Auto) 1, Basophils (%) (Auto) 0, Neutrophils # (Auto) 11.7H, Lymphocytes # (Auto) 0.9L, Monocytes # (Auto) 1.4H, Eosinophils # (Auto) 0.2, Basophils # (Auto) 0.0, Sodium Level 147H, Potassium Level 4.1, Chloride Level 109H, Carbon Dioxide Level 27, Anion Gap 11, Blood Urea Nitrogen 30H, Creatinine 1.06, Estimat Glomerular Filtration Rate > 60, BUN /Creatinine Ratio 28, Glucose Level 127H, Calcium Level 9.3 Microbiology 04/29/17 Blood Culture - Preliminary, Resulted No growth Assessment/Plan Assessment/Plan Assess & Plan/Chief Complaint blood sugars elevated due to Solu-Medrol. GFR 37. White blood cells coming down at 12,600. Patient looking better today . Lungs clear. Pneumonia. Hypoxia. Dementia. Patient work in progress. . 05/03/17. New pneumonia consider aspiration. Hypoxia. Diabetes better or Solu-Medrol. Dementia. . 05/04/17. To do speech evaluation again today to try. Pneumonia. Dementia Hypoxia Clinical Quality Measures DVT/VTE Risk/Contraindication: Risk Factor Score Per Nursin RFS Level Per Nursing on Admit: 4+=Very High VI AKERS DO May 04, 2017 08:01
[2017-05-04] MEDS: CEFEPIME 2 GM/NS 50 ML IVPB IV SCH ×2 (08:43)
[2017-05-04] MEDS: ENOXAPARIN 40 MG/0.4 ML (LOVENOX) SYR SC SCH (08:44)
--- NOTE | 2017-05-04 10:26 | Speech Therapy Progress Note ---
Therapy Progress Note Speech pathology re-attempted swallowing re-evaluation for the third time. The patient continues to keep eyes closed (regardless of positioning- placed upright for evaluation). The patient does not leave high flow nasal cannula in place, consistently grabbing and swatting at the tubing, as well as, the clinician if she attempts to place it. The patient does not open mouth to spoon trials, does not attempt to remove item from spoon, and yells, "No!" when asked by clinician if he is hungry/thirsty/in pain, etc. At this time, the patient remains inappropriate for a full swallow evaluation. Speech pathology will re-attempt as able. GERARDO BOYD May 04, 2017 10:26
[2017-05-04] MEDS: clonazePAM 0.5 MG (KlonoPIN) TAB PO SCH ×2 (10:33→19:28)
[2017-05-04] MEDS: GABAPENTIN 300 MG (NEURONTIN) CAP PO SCH ×3 (10:34→19:28)
--- NOTE | 2017-05-04 15:04 | Physician Query Clarification ---
PQ-Further Specificity Admission/Discharge Admission Date: Apr 29, 2017 at 01:51 Discharge Date: The medical record reflects the following clinical scenario: History/Risk Factors: Diabetes, Alzheimer's Clinical Findings: wet chest, hypotension, weakness, hypoxic Treatment: IV Cefepime, IV Vancomycin, 40 mg IV lasix, 40 mg IV solumedrol, Bipap, oxygen Question: Can you further specify the pneumonia per the clinical indicators above? The patient came in with lower lobe pneumonia then developed a right upper lobe pneumonis suspected aspiration pneumonia. Does the patient have 2 different types of pneumonia or is it all aspiration pneumonia? Please document below. 1. Pneumonia is all due to aspiration causing aspiration pneumonia 2. The patient has HCAP pneumonia and aspiration pneumonia developed during the stay. 3. Other, with explanation of the clinical findings. 4. Clinically undetermined, no explanation for the clinical findings. PHYSICIAN RESPONSE Can you specify per above: 1 In responding to this query, please exercise your independent professional judgment. The purpose of this communication is to more accurately reflect the complexity of your patients condition. The fact that a question is asked does not imply that any particular answer is desired or expected. Thank you for your timely response to this clarification. Requestors name: Vania THIS PHYSICIAN QUERY FORM IS A PERMANENT PART OF THE MEDICAL RECORD VANIA MARTINEZ May 04, 2017 15:04 VI AKERS DO May 05, 2017 08:21
[2017-05-04 16:00] VITALS: BP 162/78
[2017-05-04] MEDS: DONEPEZIL 10 MG (ARICEPT) TAB PO SCH (19:27)
[2017-05-04] MEDS: DULoxetine 30 MG (CYMBALTA) CAP PO SCH (19:28)
[2017-05-04] MEDS: OLANZapine 5 MG (ZyPREXA) TAB PO SCH (19:28)
[2017-05-05 00:30] VITALS: BP 142/64
[2017-05-05 06:13] LABS: BASOPHILS % (AUTO) 0 % (0-10); EOSINOPHILS # (AUTO) 0.3 10^3/uL (0.0-0.3); EOSINOPHILS % (AUTO) 2 % (0-10); LYMPHOCYTES # (AUTO) 1.1 X 10^3 (1.0-4.0); LYMPHOCYTES % (AUTO) 9 % (12-44); MEAN CORPUSCULAR HEMOGLOBIN 29 PG (25-34); MEAN CORPUSCULAR HGB CONC 32 G/DL (32-36); MEAN CORPUSCULAR VOLUME 89 FL (80-99); MEAN PLATELET VOLUME 10.9 FL (7.4-10.4); MONOCYTES # (AUTO) 1.4 X 10^3 (0.0-1.0); MONOCYTES % (AUTO) 11 % (0-12); NEUTROPHILS # (AUTO) 10.1 X 10^3 (1.8-7.8); NEUTROPHILS % (AUTO) 79 % (42-75); PLATELET COUNT 203 10^3/uL (130-400); RED BLOOD COUNT 4.37 10^6/uL (4.35-5.85); RED CELL DISTRIBUTION WIDTH 13.2 % (10.0-14.5); WHITE BLOOD COUNT 12.8 10^3/uL (4.3-11.0)
[2017-05-05 06:28] LABS: ANION GAP 12 MMOL/L (5-14); BLOOD UREA NITROGEN 28 MG/DL (7-18); BUN/CREATININE RATIO 28; CALCIUM 8.9 MG/DL (8.5-10.1); CARBON DIOXIDE 24 MMOL/L (21-32); CHLORIDE 107 MMOL/L (98-107); CREATININE SERUM 1.01 MG/DL (0.60-1.30); GFR ESTIMATED > 60; GLUCOSE 146 MG/DL (70-105); POTASSIUM 3.8 MMOL/L (3.6-5.0); SODIUM 143 MMOL/L (135-145)
[2017-05-05] MEDS: RT-ALBUTEROL/IPRATROPIUM 3 ML (DUONEB) VIAL IH SCH ×5 (06:30→22:11)
--- NOTE | 2017-05-05 07:56 | Diagnostic Imaging Report ---
INDICATION: Dyspnea. 0434 hours FINDINGS: Since the study one day earlier, there is continued cardiomegaly and pulmonary venous congestion. There is an approximately 1 cm nodular density projected over the left midlung. There has been mild increase in basilar atelectasis and/or pneumonitis. No pneumothorax is seen. IMPRESSION: Cardiomegaly and pulmonary venous congestion which may reflect congestive heart failure. There is also increasing basilar atelectasis and/or pneumonitis with 1 cm nodular density projected over the left midlung which should be further evaluated on short-term radiographic followup. Dictated by: Dictated on workstation # [id number]
[2017-05-05 08:00] VITALS: BP 124/53
--- NOTE | 2017-05-05 08:18 | Progress Note (SOAP) ---
Subjective Time Seen by Provider: 08:15 Subjective/Events-last exam pneumonia. Dementia. Patient more alert this morning. Patient unable to do swallow study. To try pured diet. Chest x-ray looks little worse. financial services rep to speak to family. Objective Exam Vital Signs Date Time Temp Pulse Resp B/P (MAP) Pulse Ox O2 Delivery O2 Flow Rate FiO2 05/05/17 06:30 90 Vapotherm 25.00 65 05/05/17 00:30 98.5 62 18 142/64 92 NIV Bilevel 05/04/17 23:26 93 Vapotherm 25.00 65 05/04/17 21:00 Vapotherm 25.00 65 05/04/17 16:00 98.1 74 16 162/78 94 NIV Bilevel 05/04/17 14:48 94 Vapotherm 25.00 65 05/04/17 10:27 95 Vapotherm 25.00 65 05/04/17 09:00 Vapotherm 25.00 65 Capillary Refill : Less Than 3 SecondsLess Than 3 Seconds General Appearance: No Apparent Distress, WD/WN Neck: Normal Inspection Respiratory: No Accessory Muscle Use, No Respiratory Distress Cardiovascular: Regular Rate, Rhythm Gastrointestinal: non tender Results Lab Laboratory Tests 05/05/17 05:37 Laboratory Tests 05/04/17 11:10: Glucometer 129H 05/04/17 16:23: Glucometer 135H 05/04/17 20:36: Glucometer 163H 05/05/17 05:13: Glucometer 144H 05/05/17 05:37: White Blood Count 12.8H, Red Blood Count 4.37, Hemoglobin 12.5L, Hematocrit 39L , Mean Corpuscular Volume 89, Mean Corpuscular Hemoglobin 29, Mean Corpuscular Hemoglobin Concent 32, Red Cell Distribution Width 13.2, Platelet Count 203, Mean Platelet Volume 10.9H, Neutrophils (%) (Auto) 79H, Lymphocytes (%) (Auto) 9L, Monocytes (%) (Auto) 11, Eosinophils (%) (Auto) 2, Basophils (%) (Auto) 0, Neutrophils # (Auto) 10.1H, Lymphocytes # (Auto) 1.1, Monocytes # (Auto) 1.4H, Eosinophils # (Auto) 0.3, Basophils # (Auto) 0.0, Sodium Level 143, Potassium Level 3.8, Chloride Level 107, Carbon Dioxide Level 24, Anion Gap 12, Blood Urea Nitrogen 28H, Creatinine 1.01, Estimat Glomerular Filtration Rate > 60, BUN /Creatinine Ratio 28, Glucose Level 146H, Calcium Level 8.9 Microbiology 04/29/17 Blood Culture - Final, Complete No growth Assessment/Plan Assessment/Plan Assess & Plan/Chief Complaint blood sugars elevated due to Solu-Medrol. GFR 37. White blood cells coming down at 12,600. Patient looking better today . Lungs clear. Pneumonia. Hypoxia. Dementia. Patient work in progress. . 05/03/17. New pneumonia consider aspiration. Hypoxia. Diabetes better or Solu-Medrol. Dementia. . 05/04/17. To do speech evaluation again today to try. Pneumonia. Dementia Hypoxia. . 05/05/17. Pneumonia. Dementia. Hypoxia. Patient unable to do speech evaluation. Waiting for family to lead me in the direction. Clinical Quality Measures DVT/VTE Risk/Contraindication: Risk Factor Score Per Nursin RFS Level Per Nursing on Admit: 4+=Very High VI AKERS DO May 05, 2017 08:18
--- NOTE | 2017-05-05 08:58 | Pulmonary Progress Note ---
Subjective Time Seen by Provider: 08:58 Exam Exam Vital Signs Date Time Temp Pulse Resp B/P (MAP) Pulse Ox O2 Delivery O2 Flow Rate FiO2 05/05/17 06:30 90 Vapotherm 25.00 65 05/05/17 00:30 98.5 62 18 142/64 92 NIV Bilevel 05/04/17 23:26 93 Vapotherm 25.00 65 05/04/17 21:00 Vapotherm 25.00 65 05/04/17 16:00 98.1 74 16 162/78 94 NIV Bilevel 05/04/17 14:48 94 Vapotherm 25.00 65 05/04/17 10:27 95 Vapotherm 25.00 65 05/04/17 09:00 Vapotherm 25.00 65 General Appearance: No Apparent Distress, WD/WN HEENT: Normal ENT Inspection Neck: Normal Inspection Respiratory: No Accessory Muscle Use, No Respiratory Distress Cardiovascular: Regular Rate, Rhythm Capillary Refill: Less Than 3 Seconds Gastrointestinal: non tender Extremity: Pedal Edema Neurologic/Psychiatric: Alert, Disoriented x3 Skin: Normal Color, Warm/Dry Results Lab Laboratory Tests 05/04/17 06:06 05/05/17 05:37 Assessment/Plan Assessment/Plan HCAP probable aspiration - pt is improving on current Abx -Continue cefepime -Cultures are negative -swallow eval pending Respiratory failure - pt just received 40mg of IV lasix -Oxygen, BiPAP -SVNS q4 - solumedrol 40 IV Q 6 Atelectasis CXR and labs reviewed 232 Clinical Quality Measures DVT/VTE Risk/Contraindication: Risk Factor Score Per Nursin RFS Level Per Nursing on Admit: 4+=Very High ILENE WINKLER DO May 05, 2017 08:58
[2017-05-05] MEDS: clonazePAM 0.5 MG (KlonoPIN) TAB PO SCH ×2 (09:24→22:02)
[2017-05-05] MEDS: CEFEPIME 2 GM/NS 50 ML IVPB IV SCH ×2 (09:24)
[2017-05-05] MEDS: GABAPENTIN 300 MG (NEURONTIN) CAP PO SCH ×3 (09:25→22:00)
[2017-05-05] MEDS: ENOXAPARIN 40 MG/0.4 ML (LOVENOX) SYR SC SCH (09:27)
[2017-05-05] MEDS: inSUlin (REGULAR) HUMAN 1 UNIT/0.01 ML (CHARGE PER UNIT) SC SCH ×4 (09:31→21:00)
[2017-05-05] MEDS: 1/2 NS IV SOLUTION 1,000 ML IV SCH (12:15)
[2017-05-05 16:00] VITALS: BP 171/70
[2017-05-05] MEDS: OLANZapine 5 MG (ZyPREXA) TAB PO SCH (22:00)
[2017-05-05] MEDS: DULoxetine 30 MG (CYMBALTA) CAP PO SCH (22:00)
[2017-05-05] MEDS: DONEPEZIL 10 MG (ARICEPT) TAB PO SCH (22:02)
[2017-05-06 00:44] VITALS: BP 137/69
[2017-05-06] MEDS: RT-ALBUTEROL/IPRATROPIUM 3 ML (DUONEB) VIAL IH SCH ×3 (02:18→10:16)
[2017-05-06] MEDS: 1/2 NS IV SOLUTION 1,000 ML IV SCH (05:11)
[2017-05-06] MEDS: inSUlin (REGULAR) HUMAN 1 UNIT/0.01 ML (CHARGE PER UNIT) SC SCH ×2 (05:54→11:16)
[2017-05-06 06:52] LABS: BASOPHILS % (AUTO) 0 % (0-10); EOSINOPHILS # (AUTO) 0.4 10^3/uL (0.0-0.3); EOSINOPHILS % (AUTO) 4 % (0-10); LYMPHOCYTES # (AUTO) 1.1 X 10^3 (1.0-4.0); LYMPHOCYTES % (AUTO) 12 % (12-44); MEAN CORPUSCULAR HEMOGLOBIN 29 PG (25-34); MEAN CORPUSCULAR HGB CONC 32 G/DL (32-36); MEAN CORPUSCULAR VOLUME 88 FL (80-99); MEAN PLATELET VOLUME 10.9 FL (7.4-10.4); MONOCYTES # (AUTO) 1.1 X 10^3 (0.0-1.0); MONOCYTES % (AUTO) 12 % (0-12); NEUTROPHILS # (AUTO) 6.6 X 10^3 (1.8-7.8); NEUTROPHILS % (AUTO) 72 % (42-75); PLATELET COUNT 241 10^3/uL (130-400); WHITE BLOOD COUNT 9.2 10^3/uL (4.3-11.0)
[2017-05-06 07:08] LABS: ANION GAP 12 MMOL/L (5-14); BLOOD UREA NITROGEN 29 MG/DL (7-18); BUN/CREATININE RATIO 27; CALCIUM 9.1 MG/DL (8.5-10.1); CARBON DIOXIDE 25 MMOL/L (21-32); CHLORIDE 107 MMOL/L (98-107); CREATININE SERUM 1.07 MG/DL (0.60-1.30); GFR ESTIMATED > 60; GLUCOSE 146 MG/DL (70-105); POTASSIUM 4.1 MMOL/L (3.6-5.0); SODIUM 144 MMOL/L (135-145)
[2017-05-06 07:21] VITALS: BP 160/69
--- NOTE | 2017-05-06 07:44 | Progress Note (SOAP) ---
Subjective Time Seen by Provider: 07:40 Subjective/Events-last exam family wants [facility]. Patient to go back to group home with hospice. Patient spits out some of his medicine. Patient keeps his eyes closed this morning. Patient not eating good. Pneumonia. Hypoxia. Alzheimer's. Objective Exam Vital Signs Date Time Temp Pulse Resp B/P (MAP) Pulse Ox O2 Delivery O2 Flow Rate FiO2 05/06/17 07:21 97.1 50 16 160/69 94 NIV CPAP 45.00 05/06/17 06:43 54 16 94 45.00 05/06/17 03:55 46 14 94 45.00 05/06/17 02:18 56 18 93 45.00 05/06/17 01:03 50 14 95 45.00 05/06/17 00:44 97.7 62 16 137/69 94 Nasal Cannula 10.00 05/05/17 22:11 96 Nasal Cannula 6.00 05/05/17 20:30 94 Nasal Cannula 6.00 05/05/17 19:12 89 Nasal Cannula 5.00 05/05/17 16:00 97.6 60 18 171/70 93 Vapotherm 65.00 25.00 05/05/17 14:58 97 Nasal Cannula 7.00 05/05/17 11:04 97 High Flow N/C 9.00 05/05/17 09:00 Nasal Cannula 10.00 05/05/17 09:00 Room Air 05/05/17 08:50 89 High Flow N/C 10.00 05/05/17 08:00 Nasal Cannula 10.00 05/05/17 08:00 97.7 47 16 124/53 94 Vapotherm 65.00 25.00 Capillary Refill : Less Than 3 SecondsLess Than 3 Seconds General Appearance: No Apparent Distress HEENT: Normal ENT Inspection, Other (on BiPAP) Neck: Normal Inspection Respiratory: No Accessory Muscle Use, No Respiratory Distress, Other (on BiPAP) Cardiovascular: Regular Rate, Rhythm Gastrointestinal: non tender, soft Results Lab Laboratory Tests 05/06/17 06:16 Laboratory Tests 05/05/17 11:07: Glucometer 146H 05/05/17 16:36: Glucometer 125H 05/05/17 20:44: Glucometer 140H 05/06/17 05:53: Glucometer 138H 05/06/17 06:16: White Blood Count 9.2, Red Blood Count 4.20L, Hemoglobin 12.0L, Hematocrit 37L, Mean Corpuscular Volume 88, Mean Corpuscular Hemoglobin 29, Mean Corpuscular Hemoglobin Concent 32, Red Cell Distribution Width 13.0, Platelet Count 241, Mean Platelet Volume 10.9H, Neutrophils (%) (Auto) 72, Lymphocytes (%) (Auto) 12 , Monocytes (%) (Auto) 12, Eosinophils (%) (Auto) 4, Basophils (%) (Auto) 0, Neutrophils # (Auto) 6.6, Lymphocytes # (Auto) 1.1, Monocytes # (Auto) 1.1H, Eosinophils # (Auto) 0.4H, Basophils # (Auto) 0.0, Sodium Level 144, Potassium Level 4.1, Chloride Level 107, Carbon Dioxide Level 25, Anion Gap 12, Blood Urea Nitrogen 29H, Creatinine 1.07, Estimat Glomerular Filtration Rate > 60, BUN /Creatinine Ratio 27, Glucose Level 146H, Calcium Level 9.1 Microbiology 04/29/17 Blood Culture - Final, Complete No growth Assessment/Plan Assessment/Plan Assess & Plan/Chief Complaint blood sugars elevated due to Solu-Medrol. GFR 37. White blood cells coming down at 12,600. Patient looking better today . Lungs clear. Pneumonia. Hypoxia. Dementia. Patient work in progress. . 05/03/17. New pneumonia consider aspiration. Hypoxia. Diabetes better or Solu-Medrol. Dementia. . 05/04/17. To do speech evaluation again today to try. Pneumonia. Dementia Hypoxia. . 05/05/17. Pneumonia. Dementia. Hypoxia. Patient unable to do speech evaluation. Waiting for family to lead me in the direction.. . 05/06/17. Pneumonia. Alzheimer's. Family wants [facility]. Patient spitting out medicine. Patient not eating well area Plan to transfer back to group home Clinical Quality Measures DVT/VTE Risk/Contraindication: Risk Factor Score Per Nursin RFS Level Per Nursing on Admit: 4+=Very High VI AKERS DO May 06, 2017 07:44
--- NOTE | 2017-05-06 08:04 | Discharge Inst-Skilled Nursing ---
Discharge Inst-Skilled NF Patient Instructions Patient Problems: Alzheimer's. Pneumonia. Inability to eat. Patient put on pured diet. Consult/Follow Up/Orders Skilled NF Admit to: [facility] Certification (SNF) I certify that SNF services are required to be given on an inpatient basis because of the above named patient's need for [facility] care on a continuing basis for the conditions(s) for which he/she was receiving inpatient hospital services prior to his/her transfer to the SNF. Discharge Diet: Other Diet (pured diet) Daily Activity as Tolerated: Yes New & Resume Previous Orders Chi Akers May 06, 2017 08:02 CHI AKERS DO May 06, 2017 08:04
[2017-05-06] MEDS: clonazePAM 0.5 MG (KlonoPIN) TAB PO SCH (09:14)
[2017-05-06] MEDS: CEFEPIME 2 GM/NS 50 ML IVPB IV SCH ×2 (09:14)
[2017-05-06] MEDS: ENOXAPARIN 40 MG/0.4 ML (LOVENOX) SYR SC SCH (09:14)
[2017-05-06] MEDS: GABAPENTIN 300 MG (NEURONTIN) CAP PO SCH (09:14)
== END 2017-05-06 12:05 | disposition hospice, inpatient (51) | DRG 177 ==
LOC: EDUNIT# 00:11 → ER 00:13 → 4TH 01:51
PROVIDERS: ADMIT Family Medicine; ATTEND Family Medicine
DX: J69.0 Pneumonitis due to inhalation of food and vomit (principal); J96.91 Respiratory failure, unspecified with hypoxia; N17.9 Acute kidney failure, unspecified; J98.11 Atelectasis; E87.0 Hyperosmolality and hypernatremia; Z66 Do not resuscitate; E11.65 Type 2 diabetes mellitus with hyperglycemia; G30.9 Alzheimer's disease, unspecified; F02.80 Dementia in other diseases classified elsewhere, unspecified severity, without behavioral disturbance, psychotic disturbance, mood disturbance, and anxiety; Z79.4 Long term (current) use of insulin
CPT/HCPCS: 36415; 71010; 80048; 80053; 80202; 81000; 82805; 82962; 83605; 83735; 83880; 84484; 85007; 85025; 85027; 85610; 85730; 86141; 87040; 93005; 93041; 94640; 94660; 94760; 96365; 96367

== ENCOUNTER 2017-06-30 22:36 | Emergency (ER) | payer MEDICARE, MEDICAID ==
[~2017-06-30] VITALS: Ht 172.7 cm; Wt 79.4 kg
[~2017-06-30 22:36] MED LIST: ACET325T38 PO; ALBU1.25 NEB; ALPR0.25 PO; BISA10SU6 RC; CHOL200025 PO; CLON0.5T PO; CYAN10006 PO; DONE10TA12 PO; DULO30CA3 PO; DULO60CA6 PO; FOLI1TAB24 PO; FURO-125 PO; GABA-488 PO; GUAI600T86 PO; INSU100I14 SQ; INSU100I32 SQ; MAG355OR16 PO; OLAN5TAB3 PO; POLY17PO6 PO; POTA-51 PO; SIMV20TA3 PO
--- OUTSIDE RECORDS SUMMARY | 2017-06-30 22:41 | XMS REPORT | Continuity of Care Document ---
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 Name Role Phone Aakash Hernández MD PP Aakash Hernández MD Unavailable Nya Pathak Unavailable Unavailable History of Present Illness No Known History Of Present Illness Problems Name Dates Details Anemia (Renamed from Absolute anemia) (285.9, D64.9) Status: Active Coronary atherosclerosis (Renamed from Arteriosclerosis of coronary artery) ( 414.00, I25.10) Status: Active Atherosclerotic heart disease of [place] coronary artery without angina pectoris (414.01, I25.10) Status: Active Benign essential hypertension (401.1, I10) Status: Active Occlusion and stenosis of carotid artery (Renamed from Carotid artery occlusion and stenosis) (433.10, I65.29) Status: Active Controlled diabetes mellitus (250.00, E11.9) Status: Active Diabetes mellitus type 1 (250.01) Status: Active Encounter for long-term use of high-risk medication (V58.69, Z79.899) Status: Active Fluzone High Dose MEDICARE VACCINE AGAINST INFLUENZA (V04.81) Status: Active Hypercholesterolemia (Renamed from Hypercholesteremia) (272.0, E78.0) Status: Active Hypercholesterolemia (Renamed from Hypercholesteremia) (272.0, E78.0) Status: Active Hypertension, benign (401.1) Status: Active Kidney disease, chronic, stage III (585.3, N18.3) Status: Active Need for prophylactic vaccination and inoculation against influenza (V04.81) Status: Active Sciatica (Renamed from Neuralgia neuritis, sciatic nerve) (724.3, M54.30) Status: Active Peripheral vascular disease (Renamed from Peripheral blood vessel disorder) ( 443.9, I73.9) Status: Active Pre-operative examination (Renamed from Pre-op evaluation) (V72.84, Z01.818) Comments: Please see letter to Dr. Montiel for comprehensive documentation of visit for multiple medical problems and consultation for pre-operative evaluation for PKE and IOL OS. Status: Active Medications Name Dates Details BABY ASPIRIN, 81MG (Oral Tablet Chewable) - Historical Medication daily Active CENTRUM SILVER (Oral Tablet) - Historical Medication daily Active FLOMAX, 0.4MG (Oral Capsule) - Historical Medication at bedtime Active FOLIC ACID, 1MG (Oral Tablet) - Historical Medication daily Active GLYBURIDE, 5MG (Oral Tablet) - Historical Medication daily Active HYDROCHLOROTHIAZIDE, 25MG (Oral Tablet) - Historical Medication daily Active LISINOPRIL, 40MG (Oral Tablet) - Historical Medication 1/2 tablet in AM and 1 tablet in PM Active METFORMIN HCL, 500MG (Oral Tablet) - Historical Medication one two times daily Active NOVOLOG MIX 70/30, (70-30) 100UNIT/ML (Subcutaneous Suspension) - Historical Medication 20 units in AM and 10 units in PM Active SIMVASTATIN, 80MG (Oral Tablet) - Historical Medication at bedtime Active TYLENOL PM EXTRA STRENGTH, 500-25MG (Oral Tablet) - Historical Medication at bedtime Active CITALOPRAM HYDROBROMIDE, 40MG (Oral Tablet) - Historical Medication one-half tablet daily Inactive DOXAZOSIN MESYLATE, 8MG (Oral Tablet) - Historical Medication one-half tablet at bedtime Inactive FOLIC ACID, 1MG (Oral Tablet) - Historical Medication daily Inactive LISINOPRIL, 20MG (Oral Tablet) - Historical Medication one-half tablet of 40mg daily Inactive Novalog Insulin 70/30 - Historical Medication 20 units in AM 10 units in PM Inactive Allergies and Adverse Reactions Name Dates Details Levaquin *FLUOROQUINOLONES* Status: Active Lortab *ANALGESICS - OPIOID* Status: Active Penicillins Status: Active Past Medical History No Significant Medical History. Procedures Procedure Dates Details ADMIN INFLUENZA VIRUS VAC: FLU VACC PRSV FREE INC ANTIG ([id number]) Completed: Comments: CAC order ADMINISTRATION OF INFLUENZA VIRUS VACCINE (G0008) Ordered:03-May-2013 Comments: CAC order Follow up in 4 months Ordered:16-Mar-2013 CAROTID BILATERAL US ([id number]) Ordered:09-Nov-2012 Follow up in 4 months Ordered:08-Nov-2012 ADMIN INFLUENZA VIRUS VAC: FLU VACC PRSV FREE INC ANTIG ([id number]) Ordered: ADMINISTRATION OF INFLUENZA VIRUS VACCINE (G0008) Ordered:10-May-2012 CAROTID BILATERAL US ([id number]) Ordered:15-Oct-2011 ADMINISTRATION OF INFLUENZA VIRUS VACCINE (G0008) Ordered:11-Jun-2011 FLU VACC PRSV FREE INC ANTIG ([id number]) Completed:15-Jun-2011 Chronic Kidney Failure *: chronic renal insufficiency Ordered:11-Jun-2011 Follow up in 4 months Ordered: Follow up in 4 months Ordered:28-Aug-2010 EXTREMITY STUDY ([id number]) Ordered:28-Aug-[address] SCAN OF LUMBAR SPINE ([id number]) Ordered:28-Aug-2010 ADMINISTRATION OF INFLUENZA VIRUS VACCINE (G0008) Completed:30-May-2010 FLU VACCINE, 3 YRS & >, IM ([id number]) Completed:24-Apr-2010 Catheterization, Left Heart-Skin Completed:02-Dec-2004 EKG Completed:22-Apr-2010 Flu Vaccine Completed:10-May-2012 Flu Vaccine Completed:03-May-2013 Pneumovax Completed:01-May-2008 PSA Completed: Comments: (3.58) Immunization Name Dates Details Fluzone Lot #: [id number] Administered on:11-Jun-2011 Comments: Site: Deltoid (Left) Influenza (3 years and up) Lot #: [id number] Administered on:24-Apr-2010 Comments: Site: Deltoid (Left) Influenza, preserv. free, enhanced immunogncty, IM Lot #: [id number] Administered on:03-May-2013 Comments: Site: Deltoid (Left) Pneumococcal (2 years and up) Administered on:01-May-2008 Family History Name Dates Details Brother 1 Comments: healthy Status: Active Brother 2 Comments: borderline diabetes Status: Active Father Comments: 72 yo of [place] Status: Active Mother Comments: at 67 of cancer Status: Active Sister 1 Comments: NIDDM Status: Active Sister 2 Comments: NIDDM Status: Active Social History Name Dates Details Current tobacco use: Former smoker. Comments: quit 40 years ago. Highest Education Level Attained: High school graduate. Marital status: . Non Drinker/No Alcohol Use Place of Comments: [facility] Vital Signs Date Test Result Details 16-Mar-2013 10:48 Temperature 97.8 f Comments: Method: [...] 29.13 kg/m2 Body Surface Area Calculated 1.96 08-Nov-2012 10:30 Temperature 98 f Comments: Method: [...] 29.29 kg/m2 Body Surface Area Calculated 1.97 10-May-2012 11:05 Temperature 98.1 f Comments: Method: [...] 29.29 kg/m2 Body Surface Area Calculated 1.97 15-Oct-2011 11:47 Temperature 97.6 f Comments: Method: [...] 29.29 kg/m2 Body Surface Area Calculated 1.97 11-Jun-2011 11:44 Temperature 97.7 f Comments: Method: [...] 28.86 kg/m2 Body Surface Area Calculated 1.98 15:45 Temperature 97.2 f Comments: Method: Temporal [...] 28.86 kg/m2 Body Surface Area Calculated 1.98 28-Aug-2010 10:58 Temperature 97 f Comments: Method: [...] 20.36 kg/m2 Body Surface Area Calculated 1.68 Results Date Description Value Details Resulted on: 22-Apr-2010 ELECTROCARDIOGRAM, COMPLETE ([id number]) [EKG] AR Interval: 1 mm Pending Normal 16-Mar-2013 12:56 CK ([id number]) Comments: NOTES: Items in this order include: Basic Metabolic Panel, Hemoglobin A1C, Draw Charge[i], ALT, CKILast Hgb A1C was ran 128 Days ago. Check by kb CKI 220 U/L Range: 39-308=Normal 12:56 ALT ([id number]) Comments: NOTES: Items in this order include: Basic Metabolic Panel, Hemoglobin A1C, Draw Charge[i], ALT, CKILast Hgb A1C was ran 128 Days ago. Check by kb ALTI 30 U/L Range: 12-78=Normal 11:42 VENIPUNCTURE Routine Venipuncture Drawn Normal 12:56 A1C 7.8 % Comments: NOTES: Items in this order include: Basic Metabolic Panel, Hemoglobin A1C, Draw Charge[i], ALT, CKILast Hgb A1C was ran 128 Days ago. Check by kb Range: 4.6-6.2=Abnormal Comments: Consistent with diabetes. 12:56 BMP Comments: NOTES: Items in this order include: Basic Metabolic Panel, Hemoglobin A1C, Draw Charge[i], ALT, CKILast Hgb A1C was ran 128 Days ago. Check by kb GLU 232 mg/dL Range: 70-110=Abnormal CA 8.9 mg/dL Range: 8.4-10.2=Normal eGFR 51.7 mL/min/1.73m2 Range: >60.0=Abnormal CREAT 1.4 mg/dL Range: 0.6-1.3=Abnormal OSMO 291 Range: 275-295=Normal BUN 18 mg/dL Range: 7-18=Normal AGAP 13.60 mmol/L Range: 10.00-20.00=Normal CO2 29.9 mmol/L Range: 21.0-32.0=Normal CL 102 mmol/L Range: 98-107=Normal K 4.5 mmol/L Range: 3.5-5.0=Normal NA 141 mmol/L Range: 135-145=Normal 12:56 VENIPUNCTURE Comments: NOTES: Items in this order include : Basic Metabolic Panel, Hemoglobin A1C, Draw Charge[i], ALT, CKILast Hgb A1C was ran 128 Days ago. Check by kb Draw Drawn Normal 11-Nov-2012 12:39 LIPID PANEL ([id number]) Comments: NOTES: Items in this order include: Draw Charge[i], Lipid LDL 60.4 mg/dL Range: 1.0-129.0=Normal Comments: Desirable range <100 mg/dL for patients with CHD or Diabetes and <70 mg/dL for diabetic patients with known heart disease. ahdl risk factor 3.33 Range: 4.00-6.70=Abnormal HDL 48 mg/dL Range: 29-71=Normal TRIG 258 mg/dL Range: 35-160=Abnormal CHOL 160 mg/dL Range: 0-200=Normal 12:39 VENIPUNCTURE Comments: NOTES: Items in this order include : Draw Charge[i], Lipid Draw Drawn Normal 08-Nov-2012 12:44 A1C 8.1 % Comments: NOTES: Items in this order include: Draw Charge[i], Basic Metabolic Panel, Hemoglobin [id number] Hgb A1C was ran 182 Days ago. Check by kb Range: 4.6-6.2=Abnormal Comments: Consistent with diabetes. 12:44 BMP Comments: NOTES: Items in this order include: Draw Charge[i] , Basic Metabolic Panel, Hemoglobin [id number] Hgb A1C was ran 182 Days ago. Check by kb GLU 193 mg/dL Range: 70-110=Abnormal CA 9.1 mg/dL Range: 8.4-10.2=Normal eGFR 47.8 mL/min/1.73m2 Range: >60.0=Abnormal CREAT 1.5 mg/dL Range: 0.6-1.3=Abnormal OSMO 291 Range: 275-295=Normal BUN 18 mg/dL Range: 7-18=Normal AGAP 13.60 mmol/L Range: 10.00-20.00=Normal CO2 32.2 mmol/L Range: 21.0-32.0=Abnormal CL 101 mmol/L Range: 98-107=Normal K 4.8 mmol/L Range: 3.5-5.0=Normal NA 142 mmol/L Range: 135-145=Normal 12:44 VENIPUNCTURE Comments: NOTES: Items in this order include : Draw Charge[i], Basic Metabolic Panel, Hemoglobin [id number] Hgb A1C was ran 182 Days ago. Check by kb Draw Drawn Normal 10-May-2012 12:20 TSH (THYROID STIMULATING HORMONE) ([id number]) Comments: NOTES: Items in this order include: Draw Charge[i], Basic Metabolic Panel, Hemoglobin A1C, Urine Microalbumin, TSHLast Hgb A1C was ran 208 Days ago. Check by KB TSH 4.90 uIU/ml Range: 0.34-5.60=Normal 12:20 Urine Microalbumin ([id number]) Comments: NOTES: Items in this order include: Draw Charge[i], Basic Metabolic Panel, Hemoglobin A1C, Urine Microalbumin, TSHLast Hgb A1C was ran 208 Days ago. Check by KB U A:C RATIO 30 - 300 mg/g Abnormal Range: <30 mg/g Normal=Abnormal U CREAT 50 mg/dL Range: 10-300=Normal U ALB 10 mg/L Range: 10 mg/L=Normal 12:20 A1C 7.0 % Comments: NOTES: Items in this order include: Draw Charge [i], Basic Metabolic Panel, Hemoglobin A1C, Urine Microalbumin, TSHLast Hgb A1C was ran 208 Days ago. Check by KB Range: 4.6-6.2=Abnormal Comments: Consistent with diabetes. 12:20 BMP Comments: NOTES: Items in this order include: Draw Charge[i] , Basic Metabolic Panel, Hemoglobin A1C, Urine Microalbumin, TSHLast Hgb A1C was ran 208 Days ago. Check by KB GLU 239 mg/dL Range: 70-110=Abnormal CA 8.8 mg/dL Range: 8.4-10.2=Normal eGFR 51.8 mL/min/1.73m2 Range: >60.0=Abnormal CREAT 1.4 mg/dL Range: 0.6-1.3=Abnormal OSMO 283 Range: 275-295=Normal BUN 15 mg/dL Range: 7-18=Normal AGAP 11.80 mmol/L Range: 10.00-20.00=Normal CO2 29.7 mmol/L Range: 21.0-32.0=Normal CL 100 mmol/L Range: 98-107=Normal K 4.5 mmol/L Range: 3.5-5.0=Normal NA 137 mmol/L Range: 135-145=Normal 12:20 VENIPUNCTURE Comments: NOTES: Items in this order include : Draw Charge[i], Basic Metabolic Panel, Hemoglobin A1C, Urine Microalbumin, TSHLast Hgb A1C was ran 208 Days ago. Check by KB Draw Drawn Normal 15-Oct-2011 13:21 A1C 6.8 % Comments: NOTES: Items in this order include: Draw Charge[i], Basic Metabolic Panel, Hemoglobin A1C Range: 4.6-6.2=Abnormal Comments: Consistent with diabetes. 13:21 BMP Comments: NOTES: Items in this order include: Draw Charge[i] , Basic Metabolic Panel, Hemoglobin A1C GLU 92 mg/dL Range: 70-110=Normal CA 9.2 mg/dL Range: 8.4-10.2=Normal eGFR 47.9 mL/min/1.73m2 Range: >60.0=Abnormal CREAT 1.5 mg/dL Range: 0.6-1.3=Abnormal OSMO 283 Range: 275-295=Normal BUN 17 mg/dL Range: 7-18=Normal AGAP 12.40 mmol/L Range: 10.00-20.00=Normal CO2 28.8 mmol/L Range: 21.0-32.0=Normal CL 104 mmol/L Range: 98-107=Normal K 4.2 mmol/L Range: 3.5-5.0=Normal NA 141 mmol/L Range: 135-145=Normal 13:21 VENIPUNCTURE Comments: NOTES: Items in this order include : Draw Charge[i], Basic Metabolic Panel, Hemoglobin A1C Draw Drawn Normal 11-Jun-2011 13:21 CBC-MALE- ORDER THIS ONE! ([id number]) Comments: NOTES: Items in this order include: Hemoglobin A1C, Draw Charge[i], Basic Metabolic Panel, CBC manual diff Not Indicated Normal mpv 8.92 fL Range: 0.00-99.90=Normal PLT 234.0 K/uL Range: 150.0-450.0=Normal RDW 11.5 % Range: 11.5-14.5=Normal MCHC 35.9 g/dL Range: 31.0-36.0=Normal MCH 30.2 pg Range: 27.0-31.2=Normal MCV 84.1 fl Range: 80.0-97.0=Normal HCT 38.6 % Range: 39.0-54.0=Abnormal HGB 13.90 g/dL Range: 13.00-17.00=Normal RBC 4.59 M/uL Range: 4.60-6.20=Abnormal Baso% 0.631 % Range: 0.000-1.000=Normal eos% 2.05 % Range: 0.00-3.00=Normal mono% 8.94 % Range: 0.00-9.00=Normal LYM% 20.60 % Range: 20.00-40.00=Normal june% 67.80 % Range: 55.00-75.00=Normal Baso 0.050 K/uL Range: 0.000-0.100=Normal eos 0.161 K/uL Range: 0.000-4.000=Normal mono 0.70 K/uL Range: 0.00-0.70=Normal LYMPHS 1.62 K/uL Range: 0.90-4.20=Normal june 5.32 K/uL Range: 2.50-7.80=Normal wbc 7.85 K/uL Range: 4.50-10.50=Normal 13:21 BMP Comments: NOTES: Items in this order include: Hemoglobin A1C , Draw Charge[i], Basic Metabolic Panel, CBC GLU 151 mg/dL Range: 70-110=Abnormal CA 9.3 mg/dL Range: 8.4-10.2=Normal eGFR 51.9 mL/min/1.73m2 Range: >60.0=Abnormal CREAT 1.4 mg/dL Range: 0.6-1.3=Abnormal OSMO 281 Range: 275-295=Normal BUN 19 mg/dL Range: 7-18=Abnormal AGAP 10.90 mmol/L Range: 10.00-20.00=Normal CL 101 mmol/L Range: 98-107=Normal CO2 30.8 mmol/L Range: 21.0-32.0=Normal K 4.7 mmol/L Range: 3.5-5.0=Normal NA 138 mmol/L Range: 135-145=Normal 13:21 VENIPUNCTURE Comments: NOTES: Items in this order include : Hemoglobin A1C, Draw Charge[i], Basic Metabolic Panel, CBC Draw Drawn Normal 13:21 A1C 6.8 % Comments: NOTES: Items in this order include: Hemoglobin A1C, Draw Charge[i], Basic Metabolic Panel, CBC Range: 4.6-6.2=Abnormal Comments: Consistent with diabetes. 17:06 Urine Microalbumin ([id number]) Comments: NOTES: Items in this order include: Basic Metabolic Panel, Hemoglobin A1C, Urine Microalbumin, Draw Charge[i] U A:C RATIO <30 mg/g Normal Range: <30 mg/g Normal=Normal U CREAT 50 mg/dL Range: 10-300=Normal U ALB 10 mg/L Range: 10 mg/L=Normal 17:06 A1C 7.0 % Comments: NOTES: Items in this order include: Basic Metabolic Panel, Hemoglobin A1C, Urine Microalbumin, Draw Charge[i] Range: 4.6-6.2=Abnormal Comments: Consistent with diabetes. 17:06 BMP Comments: NOTES: Items in this order include: Basic Metabolic Panel, Hemoglobin A1C, Urine Microalbumin, Draw Charge[i] GLU 155 mg/dL Range: 70-110=Abnormal CA 9.3 mg/dL Range: 8.4-10.2=Normal eGFR 52.0 mL/min/1.73m2 Range: >60.0=Abnormal CREAT 1.4 mg/dL Range: 0.6-1.3=Abnormal OSMO 281 Range: 275-295=Normal BUN 17 mg/dL Range: 7-18=Normal AGAP 10.10 mmol/L Range: 10.00-20.00=Normal CO2 29.3 mmol/L Range: 21.0-32.0=Normal CL 103 mmol/L Range: 98-107=Normal K 4.4 mmol/L Range: 3.5-5.0=Normal NA 138 mmol/L Range: 135-145=Normal 24-Oct-2010 11:48 CREATININE BLOOD ([id number]) Comments: NOTES: Verbal order from Dr. Aakash Hernández eGFR 52.0 mL/min/1.73m2 Range: >60.0=Abnormal CREAT 1.4 mg/dL Range: 0.6-1.3=Abnormal 28-Aug-2010 14:12 TSH (THYROID STIMULATING HORMONE) ([id number]) TSH 5.29 uIU/ml Range: 0.34-5.60=Normal 14:12 CBC-MALE- ORDER THIS ONE! ([id number]) manual diff Not Indicated Normal MCHC 35.4 g/dL Range: 31.0-36.0=Normal mpv 8.45 fL Range: 0.00-99.90=Normal PLT 282.0 K/uL Range: 150.0-450.0=Normal RDW 11.2 % Range: 11.5-14.5=Abnormal Baso% 0.585 % Range: 0.000-1.000=Normal HCT 40.6 % Range: 39.0-54.0=Normal HGB 14.30 g/dL Range: 13.00-17.00=Normal MCH 30.3 pg Range: 27.0-31.2=Normal MCV 85.6 fl Range: 80.0-97.0=Normal RBC 4.74 M/uL Range: 4.60-6.20=Normal Baso 0.052 K/uL Range: 0.000-0.100=Normal eos% 1.64 % Range: 0.00-3.00=Normal LYM% 19.00 % Range: 20.00-40.00=Abnormal mono% 9.06 % Range: 0.00-9.00=Abnormal june% 69.70 % Range: 55.00-75.00=Normal eos 0.144 K/uL Range: 0.000-4.000=Normal mono 0.80 K/uL Range: 0.00-0.70=Abnormal LYMPHS 1.68 K/uL Range: 0.90-4.20=Normal june 6.15 K/uL Range: 2.50-7.80=Normal wbc 8.82 K/uL Range: 4.50-10.50=Normal 14:12 CK ([id number]) CK 199 U/L Range: 26-190=Abnormal 14:12 ALT ([id number]) ALT 35 IU/L Range: 30-65=Normal 14:12 A1C 6.5 % Range: 4.6-6.2=Abnormal 14:12 BMP AGAP 12.70 mmol/L Range: 10.00-20.00=Normal BUN 16 mg/dL Range: 7-18=Normal CA 9.2 mg/dL Range: 8.4-10.2=Normal CO2 30.5 mmol/L Range: 21.0-32.0=Normal CREAT 1.4 mg/dL Range: 0.6-1.3=Abnormal eGFR 52.0 mL/min/1.73m2 Range: >60.0=Abnormal GLU 163 mg/dL Range: 70-110=Abnormal OSMO 289 Range: 275-295=Normal CL 103 mmol/L Range: 98-107=Normal K 4.2 mmol/L Range: 3.5-5.0=Normal NA 142 mmol/L Range: 135-145=Normal Treatment Plan * LIPID PANEL ([id number]); Ordered: 06/15/2011 Advance Directives No Advance Directives available. Encounters Historical Summary [facility] On 02-Aug-2013 10:28 Nurse Visit - Need for prophylactic vaccination and inoculation against influenza [facility] On 03-May-2013 12:59 Office Visit - Controlled diabetes mellitus (250.00 | E11.9), Kidney disease, chronic, stage III (585.3 | N18.3), Atherosclerotic heart disease of [place] coronary artery without angina pectoris (414.01 | I25.10), Benign essential hypertension (401.1 | I10), Encounter for long-term use of high-risk medication (V58.69 | Z79.899) [...] statins. [facility] On 16-Mar-2013 10:17 Office Visit - Benign essential hypertension (401.1 | I10), Kidney disease, chronic, stage III (585.3), Atherosclerotic heart disease of [place] coronary artery without angina pectoris (414.01 | I25.10), Type II diabetes mellitus, Hypercholesterolemia (Renamed from Hypercholesteremia) (272.0 | E78.0), Occlusion and stenosis of carotid artery (Renamed from Carotid artery occlusion and stenosis) (433.10 [...] glyburide, dyslipidemia medications, MARCUS inhibitor, angiotensin receptor jakc, dietary modification and exercise program. By report [...] statins. [facility] On 08-Nov-2012 10:08 Office Visit - Fluzone High Dose MEDICARE VACCINE AGAINST INFLUENZA, Type II diabetes mellitus, Hypertension, benign, Peripheral vascular disease (Renamed from Peripheral blood vessel disorder) (443.9 | I73.9), Kidney disease, chronic , stage III (585.3), Atherosclerotic heart disease of [place] coronary artery without angina pectoris (414.01 | [...] and the result was normal., [ADDITIONAL REASON] High Blood Pressure - The onset of the hypertension has [...] inhibitors and statins. [facility] On 10-May-2012 11:04 Office Visit - Type II diabetes mellitus, Hypertension, benign, Peripheral vascular disease, Occlusion and stenosis of carotid artery Encounter Reason: Diabetes Type II, Follow Up [...] the result was normal., [ ADDITIONAL REASON] High Blood Pressure - The onset of the hypertension has [...] inhibitors and statins. [facility] On 15-Oct-2011 11:46 Historical Summary [facility] On 14-Oct-2011 15:43 Office Visit - Coronary atherosclerosis, Type II diabetes mellitus, Hypertension, benign, Peripheral vascular disease, Hypercholesterolemia, Chronic kidney disease, stage I, Need for prophylactic vaccination and inoculation against influenza Encounter Reason: Diabetes Type II, Follow Up [...] inhibitors and statins. , [ ADDITIONAL REASON] High Blood Pressure - The onset of the hypertension has [...] weakness. [facility] On 11-Jun-2011 11:27 Historical Summary [facility] On 11-Jun-2011 08:17 Office Visit - Type II diabetes mellitus, Peripheral vascular disease, Hypertension, benign Encounter Reason: Diabetes Type II, Follow Up [...] MARCUS inhibitors and statins. , [ADDITIONAL REASON] High Blood Pressure - The onset of the hypertension has [...] disturbances or weakness. [facility] On 15:44 Lab entry only - Diabetes mellitus [facility] On 24-Oct-2010 10:43 Office Visit - Type I diabetes mellitus, Hypercholesterolemia, Hypertension, benign, Anemia, Sciatica, Peripheral vascular disease Encounter Reason: Diabetes Type II, Follow Up [...] treatment and good symptom control.[facility] On 28-Aug-2010 10:52 Office Visit - Need for prophylactic vaccination and inoculation against influenza Encounter Reason: Pre-Op Visit - The procedure [...] is done once daily. , [ADDITIONAL REASON] High Blood Pressure - The onset of the hypertension has been gradual. The hypertension has been occurring in pattern for 10 years. , [ADDITIONAL REASON] Coronary Artery Disease (CAD) - The last clinic visit was 4 month(s) ago. No changes in management were made at the last visit. Onset was 15 year(s) ago. [facility] On 24-Apr-2010 10:38 Lab entry only - Diabetes mellitus type 1, Hypertension, benign, Hypercholesterolemia [facility] On 22-Apr-2010 12:43 Lab entry only - Diabetes mellitus type 1 [facility] On 22-Apr-2010 12:09 Historical Summary - Pre-operative examination, Coronary atherosclerosis [facility] On 22-Apr-2010 11:35
--- NOTE | 2017-06-30 23:01 | ED Fall/Injury ---
General Chief Complaint: Trauma-Non Activation Stated Complaint: FALL Nursing Triage Note: PATIENT WAS FOUND ON THE FLOOR AT [facility] AND WAS BROUGHT IN BY EMS. Source: patient, EMS, [facility] records Exam Limitations: clinical condition (Alzheimer's) History of Present Illness Time seen by provider: 22:36 Initial Comments This 87-year-old gentleman presents to the emergency room from [facility] after having a fall injury. Patient suffered an unwitnessed fall with unknown loss of consciousness. He has contusions over the forehead and scalp and a superficial skin tear on the parietal scalp. He has bruising and tenderness to the left hand. He has abrasion to the right knee which he states is not painful or tender. His mental status is at baseline per EMS who conferred with [facility] staff. Patient is alert and oriented to place and age. He is disoriented to month. He does not know what caused his fall. EMS reports fingerstick blood sugar was 167. Occurred: just prior to arrival Severity: mild Injuries/Pain Location: head, upper extremity, lower extremity Context: unknown Loss of Consciousness: unsure Associated Symptoms (Fall): Denies Symptoms Allergies and Home Medications Allergies Coded Allergies: Penicillins (Unverified Allergy, Unknown, 04/29/17) hydrocodone (Unverified Allergy, Unknown, 04/29/17) levofloxacin (Unverified Allergy, Unknown, 04/29/17) Home Medications Acetaminophen 325 Mg Tablet, 650 MG PO Q4H PRN for PAIN-MODERATE, (Reported) Albuterol Sulfate 1.25 Mg/3 Ml Vial.neb, 1.25 MG NEB Q6H PRN for SHORTNESS OF BREATH, (Reported) Bisacodyl 10 Mg Supp.rect, 10 MG RC DAILY PRN for CONSTIPATION-4TH LINE, ( Reported) Cholecalciferol (Vitamin D3) 2,000 Unit Tablet, 2,000 UNIT PO DAILY, (Reported) Clonazepam 0.5 Mg Tablet, 0.5 MG PO BID, (Reported) Cyanocobalamin (Vitamin B-12) 1,000 Mcg Tablet, 1,000 MCG PO DAILY, (Reported) Donepezil HCl 10 Mg Tablet, 10 MG PO HS, (Reported) Duloxetine HCl 30 Mg Capsule.dr, 30 MG PO HS, (Reported) Duloxetine HCl 60 Mg Capsule.dr, 60 MG PO DAILY, (Reported) Folic Acid 1 Mg Tablet, 1 MG PO DAILY, (Reported) Guaifenesin 600 Mg Tab.er.12h, 600 MG PO BID, (Reported) Insulin Aspart 300 Units/3 Ml Solution, SQ AC, (Reported) 80-100 = 2 UNITS 101-150 =4 UNITS 151-200 =5 UNITS 201-250 =6 UNITS 251-300 = 7 UNITS 301-350 =8 UNITS 351-400 =9 UNITS OVER 400 GIVE 10 UNITS AND NOTIFY PCP Mag Hydrox/Aluminum Hyd/Simeth 355 Ml Oral.susp, 30 ML PO Q2H PRN for HEARTBURN, (Reported) Polyethylene Glycol 3350 17 Gm Powd.pack, 17 GM PO DAILY PRN for CONSTIPATION- 2ND LINE, (Reported) Constitutional: no symptoms reported Eyes: No Symptoms Reported Ears, Nose, Mouth, Throat: no symptoms reported Respiratory: no symptoms reported Cardiovascular: no symptoms reported Gastrointestinal: no symptoms reported Genitourinary: no symptoms reported Musculoskeletal: see HPI Skin: see HPI Psychiatric/Neurological: See HPI Past Ueztvmz-Gqdozl-Xntmxa Hx Patient Social History 2nd Hand Smoke Exposure: No Recent Foreign Travel: No Contact w/Someone Who Travel: No Recent Infectious Disease Expo: No Recent Hopitalizations: No Immunizations Up To Date Tetanus Booster (TDap): Unknown Surgeries History of Surgeries: No (unknown) Respiratory History of Respiratory Disorde: Yes Respiratory Disorders: Pneumonia Cardiovascular History of Cardiac Disorders: No Neurological History of Neurological Disord: Yes Neurological Disorders: Dementia Reproductive System Hx Reproductive Disorders: No Gastrointestinal History of Gastrointestinal Di: No Musculoskeletal History of Musculoskeletal Dis: No Endocrine History of Endocrine Disorders: Yes Endocrine Disorders: Diabetes, Insulin dep Cancer History of Cancer: No Psychosocial History of Psychiatric Problem: Yes (Alzheimer's dementia) Behavioral Health Disorders: Violent Behavior Family Medical History Family Medial History: Patient reports no known family medical history. Physical Exam Vital Signs Vital Sign - Last 12Hours 06/30/17 07/01/17 22:37 00:37 Temp 97.8 Pulse 51 Resp 22 B/P (MAP) 171/72 (105) Pulse Ox 96 O2 Delivery Room Air Capillary Refill : Less Than 3 Seconds General Appearance: WD/WN, no apparent distress HEENT: PERRL/EOMI, pharynx normal, other (minor superficial skin tear on the parietal scalp. Contusion over the right forehead.) Neck: non-tender, normal inspection Cardiovascular: regular rate, rhythm, no edema, no murmur Respiratory: lungs clear, normal breath sounds, no respiratory distress, no accessory muscle use Gastrointestinal: normal bowel sounds, non tender, soft Extremities: pedal edema, swelling, other (minor abrasion over the right knee without tenderness) Neurologic/Psychiatric: spa host II-XII nml as tested, alert, normal mood/affect, other (oriented to person, age, and place. Disoriented to month) Skin: normal color, warm/dry, ecchymosis [place] Coma Score Best Eye Response: (4) Open Spontaneously Best Verbal Response: (4) Confused Conversation Best Motor Response: (6) Obeys Commands [place] Total: 14 Progress/Results/Core Measures Results/Orders Lab Results Laboratory Tests Test 06/30/17 23:44 Range/Units Urine Color YELLOW Urine Clarity CLEAR Urine pH 5 5-9 Urine Specific [place] 1.020 1.016-1.022 Urine Protein 1+ H NEGATIVE Urine Glucose (UA) NEGATIVE NEGATIVE Urine Ketones NEGATIVE NEGATIVE Urine Nitrite NEGATIVE NEGATIVE Urine Bilirubin NEGATIVE NEGATIVE Urine Urobilinogen NORMAL NORMAL MG/DL Urine Leukocyte Esterase NEGATIVE NEGATIVE Urine RBC (Auto) NEGATIVE NEGATIVE Urine RBC NONE /HPF Urine WBC NONE /HPF Urine Squamous Epithelial Cells 0-2 /HPF Urine Crystals NONE /LPF Urine Bacteria TRACE /HPF Urine Casts NONE /LPF Urine Mucus NEGATIVE /LPF Urine Culture Indicated NO My Orders Orders - EMILY FONSECA MD Chest 1 View, Ap/Pa Only (06/30/17 22:42) Pelvis (06/30/17 22:42) Ct Head/Cervical Spine Wo (06/30/17 22:42) Ua Culture If Indicated (06/30/17 22:42) Hand, Left, 3 Views (06/30/17 22:51) Vital Signs/I&O Vital Sign - Last 12Hours 06/30/17 07/01/17 22:37 00:37 Temp 97.8 Pulse 51 52 Resp 22 14 B/P (MAP) 171/72 (105) Pulse Ox 96 O2 Delivery Room Air Room Air Blood Pressure Mean: 105 Diagnostic Imaging Diagonstic Imaging: Xray Plain Films/CT/US/NM/MRI: hand Comments X-ray of the left hand viewed by me. Report not yet available. Severe arthritic changes with no acute findings appreciated. Diagonstic Imaging: Xray Plain Films/CT/US/NM/MRI: chest Comments Chest x-ray viewed by me and compared with prior. Chronic findings still present with some improvement of congestion. No acute findings appreciated. Report not yet available. Diagonstic Imaging: Xray Plain Films/CT/US/NM/MRI: pelvis Comments Pelvis x-ray viewed by me. Report not yet available. No acute abnormalities appreciated. Diagonstic Imaging: CT Plain Films/CT/US/NM/MRI: c-spine, head Comments CT head and C-spine viewed by me and [facility] report reviewed. No acute abnormalities were appreciated. Departure Impression Impression: Primary Impression: Fall on same level Qualified Codes: W18.30XA - Fall on same level, unspecified, initial encounter Additional Impressions: Scalp contusion Qualified Codes: S00.03XA - Contusion of scalp, initial encounter Abrasion, right knee, initial encounter Contusion of left hand Qualified Codes: S60.222A - Contusion of left hand, initial encounter Disposition: 01 HOME, SELF-CARE Condition: Stable Departure-Patient Inst. Decision time for Depature: 00:00 Referrals: VI AKERS DO (PCP/Family) Primary Care Physician Patient Instructions: Contusion (DC), Preventing Falls in the Older Adult Add. Discharge Instructions: Follow-up with your primary care provider within the next week. Return to care if you have any further problems or concerns. All discharge instructions reviewed with patient and/or family. Voiced understanding. Copy Copies To 1: VI AKERS JOSHUA T MD Jun 30, 2017 23:01
[2017-06-30 23:50] LABS: BILIRUBIN,URINE NEGATIVE (NEGATIVE); KETONES,URINE NEGATIVE (NEGATIVE); LEUKOCYTE ESTERASE ,URINE NEGATIVE (NEGATIVE); NITRITE,URINE NEGATIVE (NEGATIVE); PH,URINE 5 (5-9); PROTEIN,URINE 1+ (NEGATIVE); UROBILINOGEN,URINE NORMAL (NORMAL)
[2017-06-30 23:56] LABS: SQUAMOUS EPITHELIAL CELL,UR 0-2 /HPF
[2017-07-01 00:37] VITALS: BP 125/73
--- NOTE | 2017-07-01 06:03 | Diagnostic Imaging Report ---
PROCEDURE: CT head and CT cervical spine without contrast. TECHNIQUE: Multiple contiguous axial images were obtained through the brain and cervical spine without the use of intravenous contrast. Sagittal and coronal reformations through the cervical spine were then performed. INDICATION: Fall. Head laceration. COMPARISON: None. FINDINGS: CT head: Moderate generalized cerebral and cerebellar parenchymal volume loss. No intracranial hemorrhage, mass effect, hydrocephalus or extra-axial fluid collection. No CT evidence of acute infarction. Osseous structures are intact. Complete opacification of the left maxillary sinus. Mastoids are clear. CT cervical spine: Normal alignment. Vertebral body heights preserved. There are moderate to advanced degenerative endplate changes most marked at C6-T1. No evidence of high-grade spinal canal narrowing on this noncontrast exam. The visualized paravertebral soft tissues are unremarkable. IMPRESSION: No acute intracranial or cervical spine CT findings. Dictated by: Dictated on workstation # [id number]
--- NOTE | 2017-07-01 06:04 | Diagnostic Imaging Report ---
Supine AP chest at 1122 hours. INDICATION: Fell, chest pain. FINDINGS: The heart is enlarged and similar to the prior exam of 05/05/2017. The mild pulmonary congestion noted on the prior study has resolved. There is no sign of failure, pneumonia or pleural effusion at this time. The previous exam also raise the question of nodular density overlying the left midlung. That finding is not as conspicuous on this study and may have been secondary to superimposition. It may prove worthwhile, however, to have a followup PA and lateral chest for further evaluation of this density. The mediastinum is not widened. The osseous structures are intact. IMPRESSION: 1. There is cardiomegaly, but there is no evidence for an acute cardiopulmonary abnormality. 2. The small area of increased density overlying the left midlung seen previously is not as conspicuous on this exam. Recommendations as above. Dictated by: Dictated on workstation # [id number]
--- NOTE | 2017-07-01 06:09 | Diagnostic Imaging Report ---
Left hand at 1126 hours. INDICATION: Hand pain. 3 views were obtained. There are no prior studies available for comparison. FINDINGS: There is no fracture, dislocation or acute bony abnormality evident. However, the osseous structures are demineralized and there are severe degenerative changes involving the PIP and DIP joints. There is also narrowing of the radiocarpal joint. The soft tissues are unremarkable. IMPRESSION: There is no evidence for an acute bony abnormality. However, there are severe degenerative changes evident. Dictated by: Dictated on workstation # [id number]
--- NOTE | 2017-07-01 06:31 | Diagnostic Imaging Report ---
Pelvis 11:22 p.m. INDICATION: Fell, pelvic pain. TECHNIQUE: Single AP view of the pelvis was obtained. FINDINGS: There is no fracture, dislocation or acute bony abnormality evident. There is moderate degenerative disease involving the hip and sacroiliac joints and the lower lumbar spine. The soft tissues are unremarkable IMPRESSION: There is no evidence for an acute bony abnormality. Dictated by: Dictated on workstation # [id number]
== END 2017-07-01 00:37 | disposition home or self-care (01) ==
LOC: EDUNIT# 22:36 → ER 22:36
DX: S00.03XA Contusion of scalp, initial encounter (principal); S60.222A Contusion of left hand, initial encounter; S80.211A Abrasion, right knee, initial encounter; F30.9 Manic episode, unspecified; F02.80 Dementia in other diseases classified elsewhere, unspecified severity, without behavioral disturbance, psychotic disturbance, mood disturbance, and anxiety; E11.9 Type 2 diabetes mellitus without complications; Z79.4 Long term (current) use of insulin; Z87.01 Personal history of pneumonia (recurrent); W18.30XA Fall on same level, unspecified, initial encounter
CPT/HCPCS: 70450; 71010; 72125; 72170; 73130; 81000; 99283

== ENCOUNTER → 2017-07-01 | Outpatient (CLI) | payer MEDICARE, MEDICAID ==
--- NOTE | 2017-07-01 18:32 | Diagnostic Imaging Report ---
INDICATION: Pain after fall. Three views of the right hand were obtained. FINDINGS: There is severe erosive arthritis throughout the DIP and PIP joints. There is no acute fracture or dislocation. There is soft tissue swelling about the DIP and PIP joints. 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 No acute fracture or dislocation. Dictated by: Dictated on workstation # [id number]
== END ==
LOC: RAD 17:12
PROVIDERS: ATTEND Family Medicine
DX: M79.89 Other specified soft tissue disorders (principal); M19.041 Primary osteoarthritis, right hand; W19.XXXA Unspecified fall, initial encounter
CPT/HCPCS: 73130

== ENCOUNTER 2017-10-31 11:08 | Inpatient (IN) | payer MEDICARE, MEDICAID ==
[~2017-10-31] VITALS: Ht 172.7 cm; Wt 79.5 kg
--- NOTE | 2017-10-31 11:36 | ED General ---
General Stated Complaint: PNEUMONIA Source of Information: Patient Exam Limitations: Physical Impairments History of Present Illness Date Seen by Provider: Oct 31, 2017 Time Seen by Provider: 11:20 Initial Comments Here from a nursing care facility with report of father sputum and O2 saturation 76 percent. He was placed on 3 L O2 and this did come up to 86 percent. EMS was summoned. No report of fever. No history of heart failure. Does have advanced dementia. He is not waking well this morning. He is breathing on his own. Patient does not answer questions due to underlying medical condition and dementia. Timing/Duration: 1-3 Hours Severity: Moderate, Severe Associated Systoms: Cough, No Fever/Chills, No Nausea/Vomiting, Shortness of Air, Weakness Allergies and Home Medications Allergies Coded Allergies: Penicillins (Unverified Allergy, Unknown, 04/29/17) hydrocodone (Unverified Allergy, Unknown, 04/29/17) levofloxacin (Unverified Allergy, Unknown, 04/29/17) Home Medications Acetaminophen 325 Mg Tablet, 650 MG PO Q4H PRN for PAIN-MODERATE, (Reported) Albuterol Sulfate 1.25 Mg/3 Ml Vial.neb, 1.25 MG NEB Q6H PRN for SHORTNESS OF BREATH, (Reported) Bisacodyl 10 Mg Supp.rect, 10 MG RC DAILY PRN for CONSTIPATION-4TH LINE, ( Reported) Cholecalciferol (Vitamin D3) 2,000 Unit Tablet, 2,000 UNIT PO DAILY, (Reported) Clonazepam 0.5 Mg Tablet, 0.5 MG PO BID, (Reported) Cyanocobalamin (Vitamin B-12) 1,000 Mcg Tablet, 1,000 MCG PO DAILY, (Reported) Donepezil HCl 10 Mg Tablet, 10 MG PO HS, (Reported) Duloxetine HCl 30 Mg Capsule.dr, 30 MG PO HS, (Reported) Duloxetine HCl 60 Mg Capsule.dr, 60 MG PO DAILY, (Reported) Folic Acid 1 Mg Tablet, 1 MG PO DAILY, (Reported) Guaifenesin 600 Mg Tab.er.12h, 600 MG PO BID, (Reported) Insulin Aspart 300 Units/3 Ml Solution, SQ AC, (Reported) 80-100 = 2 UNITS 101-150 =4 UNITS 151-200 =5 UNITS 201-250 =6 UNITS 251-300 = 7 UNITS 301-350 =8 UNITS 351-400 =9 UNITS OVER 400 GIVE 10 UNITS AND NOTIFY PCP Mag Hydrox/Aluminum Hyd/Simeth 355 Ml Oral.susp, 30 ML PO Q2H PRN for HEARTBURN, (Reported) Polyethylene Glycol 3350 17 Gm Powd.pack, 17 GM PO DAILY PRN for CONSTIPATION- 2ND LINE, (Reported) Patient Home Medication List Home Medication List Reviewed: Yes Review of Systems Constitutional: No fever Respiratory: cough, short of breath Unable to complete review of systems due to altered mental status and dementia Past Akhfsdz-Jdgakx-Nihdnt Hx Past Med/Social Hx: Reviewed Nursing Past Med/Soc Hx Patient Social History Recreational Drug Use: No (unknown) Smoking Status: Unknown if Ever Smoked 2nd Hand Smoke Exposure: No Recent Hopitalizations: Yes (2016) Immunizations Up To Date Tetanus Booster (TDap): Unknown Past Medical History Surgeries: No (unknown) Respiratory: Yes Pneumonia Cardiac: No Neurological: Yes Dementia Reproductive Disorders: No Gastrointestinal: No Musculoskeletal: No Endocrine: Yes Diabetes, Insulin dep Cancer: No Psychosocial: Yes (Alzheimer's dementia) Violent Behavior Family Medical History Reviewed Nursing Family Hx Patient reports no known family medical history. History via records as patient is unable to provide details. Physical Exam-Suspected Sepsis Physical Exam Vital Signs Vital Signs - First Documented 10/31/17 10/31/17 11:15 11:36 Temp 98.5 Pulse 70 Resp 22 B/P (MAP) 107/57 (74) Pulse Ox 94 O2 Delivery Nasal Cannula O2 Flow Rate 6.00 FiO2 100 Capillary Refill : General Appearance: WD/WN, Mild Distress (coughing episodes) HEENT: PERRL/EOMI, Other (mucous membranes dry) Neck: Non Tender, Supple Respiratory: No Respiratory Distress, Crackles (throughout), No Wheezing Cardiovascular: Regular Rate, Rhythm, No Murmur Gastrointestinal: Non Tender, Soft Back: Normal Inspection, No CVA Tenderness, No Vertebral Tenderness Extremity: Normal Range of Motion, Non Tender Neurologic/Psychiatric: Alert, Oriented x3 Skin: normal color, warm/dry Focused Exam Lactate Level 10/31/17 11:30: Lactic Acid Level 1.80 Lactic Acid Level Laboratory Tests Test 10/31/17 11:30 Lactic Acid Level 1.80 MMOL/L (0.50-2.00) Progress/Results/Core Measures Suspected Sepsis SIRS Temperature: Pulse: Respiratory Rate: Laboratory Tests 10/31/17 11:30: White Blood Count 11.8H Blood Pressure / Mean: 10/31/17 11:30: Lactic Acid Level 1.80 Laboratory Tests 10/31/17 11:30: Creatinine 1.22, INR Comment 1.1, Platelet Count 223, Total Bilirubin 0.6 Results/Orders Lab Results Laboratory Tests Test 10/31/17 11:25 10/31/17 11:30 Range/Units Urine Color YELLOW Urine Clarity CLEAR Urine pH 5 5-9 Urine Specific [place] 1.015 L 1.016-1.022 Urine Protein NEGATIVE NEGATIVE Urine Glucose (UA) NEGATIVE NEGATIVE Urine Ketones 1+ H NEGATIVE Urine Nitrite NEGATIVE NEGATIVE Urine Bilirubin NEGATIVE NEGATIVE Urine Urobilinogen NORMAL NORMAL MG/DL Urine Leukocyte Esterase 1+ H NEGATIVE Urine RBC (Auto) NEGATIVE NEGATIVE Urine RBC 0-2 /HPF Urine WBC 0-2 /HPF Urine Crystals NONE /LPF Urine Bacteria FEW H /HPF Urine Casts NONE /LPF Urine Mucus MODERATE H /LPF Urine Culture Indicated NO White Blood Count 11.8 H 4.3-11.0 10^3/uL Red Blood Count 4.91 4.35-5.85 10^6/uL Hemoglobin 14.3 13.3-17.7 G/DL Hematocrit 41 40-54 % Mean Corpuscular Volume 84 80-99 FL Mean Corpuscular Hemoglobin 29 25-34 PG Mean Corpuscular Hemoglobin Concent 35 32-36 G/DL Red Cell Distribution Width 13.7 10.0-14.5 % Platelet Count 223 130-400 10^3/uL Mean Platelet Volume 11.0 H 7.4-10.4 FL Neutrophils (%) (Auto) 85 H 42-75 % Lymphocytes (%) (Auto) 9 L 12-44 % Monocytes (%) (Auto) 6 0-12 % Eosinophils (%) (Auto) 0 0-10 % Basophils (%) (Auto) 0 0-10 % Neutrophils # (Auto) 10.0 H 1.8-7.8 X 10^3 Lymphocytes # (Auto) 1.0 1.0-4.0 X 10^3 Monocytes # (Auto) 0.8 0.0-1.0 X 10^3 Eosinophils # (Auto) 0.0 0.0-0.3 10^3/uL Basophils # (Auto) 0.0 0.0-0.1 10^3/uL Prothrombin Time 13.9 12.2-14.7 SEC INR Comment 1.1 0.8-1.4 Activated Partial Thromboplast Time 25 24-35 SEC Sodium Level 139 135-145 MMOL/L Potassium Level 4.1 3.6-5.0 MMOL/L Chloride Level 101 98-107 MMOL/L Carbon Dioxide Level 30 21-32 MMOL/L Anion Gap 8 5-14 MMOL/L Blood Urea Nitrogen 21 H 7-18 MG/DL Creatinine 1.22 0.60-1.30 MG/DL Estimat Glomerular Filtration Rate 56 BUN/Creatinine Ratio 17 Glucose Level 136 H 70-105 MG/DL Lactic Acid Level 1.80 0.50-2.00 MMOL/L Calcium Level 9.1 8.5-10.1 MG/DL Total Bilirubin 0.6 0.1-1.0 MG/DL Aspartate Amino Transf (AST/SGOT) 17 5-34 U/L Alanine Aminotransferase (ALT/SGPT) 21 0-55 U/L Alkaline Phosphatase 103 40-136 U/L Total Protein 6.6 6.4-8.2 GM/DL Albumin 3.7 3.2-4.5 GM/DL My Orders Orders - DONNELL SINCLAIR MD Cbc With Automated Diff (10/31/17 11:29) Comprehensive Metabolic Panel (10/31/17 11:29) Lactic Acid Analyzer (10/31/17 11:29) Blood Culture (10/31/17 11:29) Sputum Culture (10/31/17 11:29) Ua Culture If Indicated (10/31/17 11:29) Protime With Inr (10/31/17 11:29) Partial Thromboplastin Time (10/31/17 11:29) Chest 1 View, Ap/Pa Only (10/31/17 11:29) O2 (10/31/17 11:29) Vital Signs Adult Sepsis Patie Q1H (10/31/17 11:29) Remove Rings In Anticipation O (10/31/17 11:29) Catheter(Urinary) Insert & Ass 03,15 (10/31/17 11:29) O2 (10/31/17 11:29) Monitor-Rhythm Ecg Trace Only (10/31/17 11:29) Meropenem (Merrem 1000 Mg) (10/31/17 12:45) Vital Signs/I&O 10/31/17 10/31/17 11:15 11:36 Temp 98.5 Pulse 70 Resp 22 B/P (MAP) 107/57 (74) Pulse Ox 94 93 O2 Delivery Nasal Cannula Nasal Cannula O2 Flow Rate 6.00 6.00 FiO2 100 Capillary Refill : Progress Note : Progress Note Seen and evaluated. IV by EMS. Labs, UA, chest x-ray, blood cultures and lactic acid ordered. Lee catheter placed as patient has enlarged bladder noted on exam. Placed on oxygen at 6 L via nasal cannula which provides 94 percent O2 saturation. Blood pressure 107/57 and heart rate 74. Monitor patient. 1235: I did discuss the case with Dr. Benedict, on-call for Dr. Akers. Patient has right middle lobe pneumonia. He is unable to take oral antibiotics in his current condition and is requiring higher flow oxygen. Admit , inpatient status. Meropenem 1 g IV initiated now as patient has penicillin allergy and he is a skilled nursing resident higher risk for pseudomonas. Patient was oxygen saturation in the mid 90s on 6 L with heart rate 71 in no distress. Diagnostic Imaging Diagonstic Imaging: Xray Plain Films/CT/US/NM/MRI: chest Comments NAME: VI TRUJILLO MED REC#: [id number] PT STATUS: REG ER : 1932 PHYSICIAN: DONNELL SINCLAIR MD ADMIT DATE: 10/31/17/ER Signed Date of Exam: 10/31/17 CHEST 1 VIEW, AP/PA ONLY PATIENT HISTORY: Shortness of breath and decreased oxygen saturation. TECHNIQUE: Single frontal view of the chest. COMPARISON: 06/30/2017 FINDINGS: There is mildly increased opacity at the medial right lung base, new since 06/30/2017. No large pleural effusion or pneumothorax is seen. The cardiac silhouette is stable in size. There is mild aortic atherosclerosis. No acute osseous abnormality seen. IMPRESSION: New airspace opacities in the medial right lung base, may represent atelectasis or infiltrate. Dictated by: Dictated on workstation # [id number] Dict: 10/31/17 1159 Trans: 10/31/17 1206 Interpreted by: DANIEL SHARMA MD Electronically signed by: DANIEL SHARMA MD 10/31/17 1206 Departure Communication (Admissions) Time/Spoke to Admitting Phy: 12:35 Impression Primary Impression: Pneumonia involving right lung Qualified Codes: J18.1 - Lobar pneumonia, unspecified organism Disposition: ADMITTED INPATIENT Condition: Stable Admissions Decision to Admit Reason: Admit from ER (General) Decision to Admit/Date: Oct 31, 2017 Time/Decision to Admit Time: 12:35 Departure-Patient Inst. Referrals: VI AKERS DO (PCP/Family) Primary Care Physician DONNELL SINCLAIR MD Oct 31, 2017 11:36
[2017-10-31 11:41] LABS: BASOPHILS % (AUTO) 0 % (0-10); EOSINOPHILS % (AUTO) 0 % (0-10); HEMATOCRIT 41 % (40-54); HEMOGLOBIN 14.3 G/DL (13.3-17.7); LYMPHOCYTES % (AUTO) 9 % (12-44); MEAN CORPUSCULAR HEMOGLOBIN 29 PG (25-34); MEAN CORPUSCULAR HGB CONC 35 G/DL (32-36); MEAN CORPUSCULAR VOLUME 84 FL (80-99); MONOCYTES # (AUTO) 0.8 X 10^3 (0.0-1.0); MONOCYTES % (AUTO) 6 % (0-12); NEUTROPHILS % (AUTO) 85 % (42-75); PLATELET COUNT 223 10^3/uL (130-400); RED BLOOD COUNT 4.91 10^6/uL (4.35-5.85); RED CELL DISTRIBUTION WIDTH 13.7 % (10.0-14.5); WHITE BLOOD COUNT 11.8 10^3/uL (4.3-11.0)
[2017-10-31 11:42] LABS: BILIRUBIN,URINE NEGATIVE (NEGATIVE); CLARITY,URINE CLEAR; COLOR,URINE YELLOW; GLUCOSE, URINE (UA) NEGATIVE (NEGATIVE); KETONES,URINE 1+ (NEGATIVE); LEUKOCYTE ESTERASE ,URINE 1+ (NEGATIVE); NITRITE,URINE NEGATIVE (NEGATIVE); PH,URINE 5 (5-9); PROTEIN,URINE NEGATIVE (NEGATIVE); UROBILINOGEN,URINE NORMAL (NORMAL)
[2017-10-31 11:49] LABS: INR 1.1 (0.8-1.4); PROTHROMBIN TIME PATIENT 13.9 SEC (12.2-14.7)
[2017-10-31 11:57] LABS: BACTERIA,URINE FEW /HPF; RBC,URINE 0-2 /HPF; WBC,URINE 0-2 /HPF
[2017-10-31 11:59] LABS: ALBUMIN 3.7 GM/DL (3.2-4.5); BILIRUBIN,TOTAL 0.6 MG/DL (0.1-1.0); CALCIUM 9.1 MG/DL (8.5-10.1); CREATININE SERUM 1.22 MG/DL (0.60-1.30); POTASSIUM 4.1 MMOL/L (3.6-5.0); TOTAL PROTEIN 6.6 GM/DL (6.4-8.2)
--- NOTE | 2017-10-31 12:04 | Diagnostic Imaging Report ---
PATIENT HISTORY: Shortness of breath and decreased oxygen saturation. TECHNIQUE: Single frontal view of the chest. COMPARISON: 06/30/2017 FINDINGS: There is mildly increased opacity at the medial right lung base, new since 06/30/2017. No large pleural effusion or pneumothorax is seen. The cardiac silhouette is stable in size. There is mild aortic atherosclerosis. No acute osseous abnormality seen. IMPRESSION: New airspace opacities in the medial right lung base, may represent atelectasis or infiltrate. Dictated by: Dictated on workstation # [id number]
[2017-10-31] MEDS ORDERED: MEROPENEM 1,000 MG in NS (IVPB) 100 ML IV ONE (12:45)
--- NOTE | 2017-10-31 14:30 | History & Physical-Hospitalist ---
History of Present Illness HPI/Chief Complaint CC: Hypoxia with AMS and RLL Pneumonia HPI: This is an 87-year-old white male with extensive and severe dementia history resides at a local snf Dr. Cook who presented to the snf with complaints of difficulty breathing and hypoxia of 76% upon arrival. Apparently he has been declining in status although his baseline is very poor chronically but he was assessed in the ER found to have pneumonia with hypoxia and altered mental status. He cannot provide me any details. I reviewed the snf records and prior admissions to evaluate any details for this dictation. Currently he does not respond he is sleeping soundly and has oxygen intact. Source: RN/MD Exam Limitations: clinical condition (Severe end-stage status) Date Seen 10/31/17 Time Seen by Provider: 12:30 Attending Physician Chi Villa DO PCP Chi Villa DO Referring Physician Date of Admission Oct 31, 2017 at 12:39 Home Medications & Allergies Home Medications Reviewed patient Home Medication Reconciliation performed by pharmacy medication reconciliations mechanical manufacturing technician and/or nursing. Patients Allergies have been reviewed. Allergies Allergies Coded Allergies Penicillins (Unverified Allergy, Unknown, 04/29/17) hydrocodone (Unverified Allergy, Unknown, 04/29/17) levofloxacin (Unverified Allergy, Unknown, 04/29/17) Past Upedcgg-Zdxwvm-Bpdsam Hx Past Med/Social Hx: Reviewed Nursing Past Med/Soc Hx, Reviewed and Corrections made Patient Social History Marrital Status: single Employed/Student: retired Alcohol Use: Denies Use Recreational Drug Use: No (unknown) Smoking Status: Unknown if Ever Smoked 2nd Hand Smoke Exposure: No Recent Foreign Travel: No Contact w/other who traveled: No Recent Hopitalizations: Yes (2016) Recent Infectious Disease Expo: No Immunizations Up To Date Tetanus Booster (TDap): Unknown Seasonal Allergies Seasonal Allergies: No Past Medical History Respiratory: COPD, Pneumonia Cardiac: Hypertension Neurological: Dementia Reproductive: No Genitourinary: Bladder Infection, Renal Failure Gastrointestinal: Chronic Constipation Musculoskeletal: Arthritis Endocrine: Diabetes, Insulin dep Psychosocial: Sleep Difficulties, Violent Behavior Family History Reviewed Nursing Family Hx Patient reports no known family medical history. Diabetes History via records as patient is unable to provide details. Review of Systems ROS-Unable to Obtain: unable to ascertain due to dementia and AMS Constitutional: see HPI Physical Exam Physical Exam Vital Signs Vital Signs - First Documented 4/8/18 4/8/18 11:15 11:36 Temp 98.5 Pulse 70 Resp 22 B/P (MAP) 107/57 (74) Pulse Ox 94 O2 Delivery Nasal Cannula O2 Flow Rate 6.00 FiO2 100 Capillary Refill : Less Than 3 Seconds General Appearance: No Apparent Distress, WD/WN, Chronically ill, Other (very debilitated, appears end stage with upper airway gurgles) Eyes: Bilateral Eye Normal Inspection, Bilateral Eye PERRL Neck: Full Range of Motion, Normal Inspection, Non Tender, Supple, Carotid Bruit Respiratory: Chest Non Tender, Lungs Clear, Normal Breath Sounds, No Accessory Muscle Use, No Respiratory Distress, Crackles, Decreased Breath Sounds, Rales, Wheezing Cardiovascular: Regular Rate, Rhythm, No Edema, No Gallop, No JVD, No Murmur, Normal Peripheral Pulses, Tachycardia Gastrointestinal: Normal Bowel Sounds, No Organomegaly, No Pulsatile Mass, Non Tender, Soft Back: Normal Inspection, No CVA Tenderness, No Vertebral Tenderness Extremity: Normal Capillary Refill, Normal Inspection, Normal Range of Motion, Non Tender, No Calf Tenderness, No Pedal Edema Neurologic/Psychiatric: Alert, Oriented x3, No Motor/Sensory Deficits, Normal Mood/Affect, Other (dementia in addition to unresponsive status) Skin: Normal Color, Warm/Dry Lymphatic: No Adenopathy Results Results/Procedures Labs Laboratory Tests 10/31/17 11:30 Patient resulted labs reviewed. Assessment/Plan Admission Diagnosis Assessment: Pneumonia facility-acquired Severe hypoxia COPD Dementia severe DM Admission Status: Inpatient Order (span 2 midnights) Reason for Inpatient Admission: Severe hypoxia and debilitated NH patient requiring IV abx broad spectrum Assessment and Plan Plan: Abx empirically Home meds if awake enough to take them DNR Very grave prognosis Diagnosis/Problems Diagnosis/Problems (1) Pneumonia involving right lung Status: Acute Qualifiers: Pneumonia type: due to unspecified organism Lung location: lower lobe of lung Qualified Codes: J18.1 - Lobar pneumonia, unspecified organism (2) Hypoxia (3) Dementia Status: Chronic Qualifiers: Dementia type: Alzheimer's disease Alzheimer's disease onset: late-onset Dementia behavioral disturbance: without behavioral disturbance Qualified Codes: G30.1 - Alzheimer's disease with late onset; F02.80 - Dementia in other diseases classified elsewhere without behavioral disturbance (4) Diabetes mellitus Status: Chronic Qualifiers: Diabetes mellitus type: type 2 Diabetes mellitus terminal worker insulin use: with terminal worker use Diabetes mellitus complication status: with circulatory complication Diabetes mellitus complication detail: with other circulatory complications Qualified Codes: E11.59 - Type 2 diabetes mellitus with other circulatory complications; Z79.4 - correction (current) use of insulin (5) Constipation, chronic Status: Chronic (6) Leukocytosis Status: Acute Qualifiers: Leukocytosis type: leukemoid reaction Qualified Codes: D72.823 - Leukemoid reaction (7) Hypertension Status: Chronic Qualifiers: Hypertension type: essential hypertension Qualified Codes: I10 - Essential (primary) hypertension VICIK HAWTHORNE DO Oct 31, 2017 14:30
[2017-10-31] MEDS ORDERED: CATHETER FLUSH 10 ML SYR IV PRN (14:45)
[2017-10-31] MEDS ORDERED: ACETAMINOPHEN 500 MG TAB (TYLENOL) PO PRN (14:45)
[2017-10-31] MEDS ORDERED: LACTULOSE SYRUP 10GM/15ML (ENULOSE) 30ML UDC PO PRN (14:45)
[2017-10-31] MEDS ORDERED: ONDANSETRON 4 MG/2 ML (SDV) Z0FRAN IVP PRN (14:45)
[2017-10-31] MEDS ORDERED: fentaNYL INJECTION 100 MCG/2 ML AMP IVP PRN (14:45)
[2017-10-31] MEDS ORDERED: inSUlin (REGULAR) HUMAN 1 UNIT/0.01 ML (CHARGE PER UNIT) SC SCH (15:00)
[2017-10-31] MEDS ORDERED: RT-ALBUTEROL/IPRATROPIUM 3 ML (DUONEB) VIAL INH PRN (16:00)
[2017-10-31] MEDS: NS IV 1000 ML 1,000 ML IV SCH (16:03)
[2017-10-31] MEDS ORDERED: MAGN400O7 PO (16:38)
[2017-10-31] MEDS ORDERED: ALBU0.63 IH (16:38)
[2017-10-31] MEDS ORDERED: CLON1TAB4 PO (16:38)
[2017-10-31] MEDS ORDERED: TRAZ-189 PO (16:38)
[2017-10-31] MEDS ORDERED: MAG355OR17 PO (16:38)
[2017-10-31] MEDS ORDERED: INSU100I32 SQ (16:38)
[2017-10-31] MEDS ORDERED: HYOS-20 PO (16:38)
[2017-10-31] MEDS ORDERED: ANTACID SUSP 30 ML UDC (MYLANTA) PO PRN (16:45)
[2017-10-31] MEDS ORDERED: ACETAMINOPHEN 325 MG TABLET PO PRN (16:45)
[2017-10-31] MEDS ORDERED: BISACODYL 10 MG SUPP (DULCOLAX) RC PRN (16:45)
[2017-10-31] MEDS ORDERED: POLYETHYLENE GLYCOL 17 GM (MIRALAX) PACK PO PRN (16:45)
[2017-10-31] MEDS ORDERED: NON-FORMULARY MEDICATION 1 EA EA (Albuterol Sulfate 0.63 MG) IH PRN (16:45)
[2017-10-31] MEDS ORDERED: MILK OF MAGNESIA 400 MG/5 ML 30 ML UDC PO PRN (16:45)
[2017-10-31] MEDS ORDERED: HYOSCYAMINE 0.125 MG (LEVSIN) TAB PO PRN (16:45)
[2017-10-31] MEDS ORDERED: RT-ALBUTEROL SULF 2.5 MG/3 ML PRE-MIX VIAL IH PRN (17:00)
[2017-10-31] MEDS: inSUlin (REGULAR) HUMAN 1 UNIT/0.01 ML (CHARGE PER UNIT) SC SCH (18:15)
[2017-10-31 20:38] VITALS: BP 127/53
[2017-10-31] MEDS: RT-ALBUTEROL/IPRATROPIUM 3 ML (DUONEB) VIAL INH SCH ×2 (20:38→21:26)
[2017-10-31] MEDS: MEROPENEM 500 MG in NS (IVPB) 100 ML IV SCH (20:53)
[2017-10-31] MEDS: clonazePAM 1 MG (KlonoPIN) TAB PO SCH (20:55)
[2017-10-31] MEDS: traZODone 50 MG (DESYREL) TAB PO SCH (20:55)
[2017-10-31] MEDS: DULoxetine 30 MG (CYMBALTA) CAP PO SCH (20:55)
[2017-10-31] MEDS: inSUlin DETERMIR 1 UNIT/0.01 ML (LEVEMIR) CHARGE PER UNIT SQ SCH (21:00)
[2017-10-31] MEDS ORDERED: INSULIN DEGLUDEC 20 UNIT SQ SCH (21:00)
[2017-10-31] MEDS ORDERED: CATHETER FLUSH 10 ML SYR IV SCH (22:00)
[2017-10-31 23:04] VITALS: BP 141/63
[2017-11-01] MEDS: inSUlin (REGULAR) HUMAN 1 UNIT/0.01 ML (CHARGE PER UNIT) SC SCH ×4 (00:06→19:08)
[2017-11-01] MEDS: RT-ALBUTEROL/IPRATROPIUM 3 ML (DUONEB) VIAL INH SCH ×6 (01:24→21:53)
[2017-11-01] MEDS: NS IV 1000 ML 1,000 ML IV SCH ×3 (02:10→23:00)
[2017-11-01] MEDS: MEROPENEM 500 MG in NS (IVPB) 100 ML IV SCH ×3 (04:42→21:33)
[2017-11-01 04:45] VITALS: BP 143/57
[2017-11-01 06:28] LABS: BASOPHILS % (AUTO) 0 % (0-10); EOSINOPHILS % (AUTO) 0 % (0-10); HEMATOCRIT 40 % (40-54); HEMOGLOBIN 13.5 G/DL (13.3-17.7); LYMPHOCYTES # (AUTO) 0.9 X 10^3 (1.0-4.0); LYMPHOCYTES % (AUTO) 6 % (12-44); MEAN CORPUSCULAR HEMOGLOBIN 29 PG (25-34); MEAN CORPUSCULAR HGB CONC 34 G/DL (32-36); MEAN CORPUSCULAR VOLUME 86 FL (80-99); MEAN PLATELET VOLUME 11.2 FL (7.4-10.4); MONOCYTES # (AUTO) 1.1 X 10^3 (0.0-1.0); MONOCYTES % (AUTO) 8 % (0-12); NEUTROPHILS # (AUTO) 12.6 X 10^3 (1.8-7.8); NEUTROPHILS % (AUTO) 86 % (42-75); PLATELET COUNT 210 10^3/uL (130-400); RED BLOOD COUNT 4.65 10^6/uL (4.35-5.85); RED CELL DISTRIBUTION WIDTH 13.9 % (10.0-14.5); WHITE BLOOD COUNT 14.6 10^3/uL (4.3-11.0)
[2017-11-01 06:50] LABS: ALBUMIN 3.4 GM/DL (3.2-4.5); BILIRUBIN,TOTAL 0.8 MG/DL (0.1-1.0); CALCIUM 8.9 MG/DL (8.5-10.1); CREATININE SERUM 1.26 MG/DL (0.60-1.30); POTASSIUM 4.2 MMOL/L (3.6-5.0)
--- NOTE | 2017-11-01 07:34 | Progress Note (SOAP) ---
Subjective Time Seen by Provider: 07:30 Subjective/Events-last exam Patient in the emergency room nonresponsive. Patient this morning when shaken will open his eyes. Patient lethargic. Dyspnea. Hypoxia 76 percent. Pneumonia. Altered mental status. Alzheimer's disease. COPD. Alzheimer's disease without agitation. Diabetes mellitus. DO NOT RESUSCITATE. Leukocytosis. Hypertension. Patient unable to take any medicines by mouth Focused Exam Lactate Level 10/31/17 11:30: Lactic Acid Level 1.80 Objective Exam Vital Signs Date Time Temp Pulse Resp B/P (MAP) Pulse Ox O2 Delivery O2 Flow Rate FiO2 11/01/17 06:56 90 Vapotherm 15.00 55 11/01/17 04:45 99.9 77 20 143/57 (85) Vapotherm 55.00 15.00 11/01/17 03:45 91 Vapotherm 15.00 55 11/01/17 01:24 93 OxyMask 8.00 10/31/17 23:04 99.4 79 19 141/63 (89) 96 OxyMask 8.00 10/31/17 21:26 95 OxyMask 8.00 10/31/17 21:00 OxyMask 8.00 10/31/17 20:38 99.5 70 22 127/53 (77) 93 OxyMask 8.00 10/31/17 15:49 93 10/31/17 15:30 OxyMask 8.00 10/31/17 13:37 72 18 115/56 92 Nasal Cannula 10/31/17 11:36 98.5 70 22 107/57 (74) 93 Nasal Cannula 6.00 10/31/17 11:15 94 Nasal Cannula 6.00 100 I & O 11/01/17 07:00 Intake Total 1300 ml Output Total 1500 ml Balance -200 ml Capillary Refill : Less Than 3 Seconds General Appearance: No Apparent Distress, WD/WN, Other (Lethargic nonresponsive ) Respiratory: No Accessory Muscle Use, No Respiratory Distress, Other (On Vapotherm) Cardiovascular: Regular Rate, Rhythm Gastrointestinal: non tender, soft Results Lab Laboratory Tests 10/31/17 11:25: Urine Color YELLOW, Urine Clarity CLEAR, Urine pH 5, Urine Specific [place] 1.015L, Urine Protein NEGATIVE, Urine Glucose (UA) NEGATIVE, Urine Ketones 1+H, Urine Nitrite NEGATIVE, Urine Bilirubin NEGATIVE, Urine Urobilinogen NORMAL, Urine Leukocyte Esterase 1+H, Urine RBC (Auto) NEGATIVE, Urine RBC 0-2, Urine WBC 0-2, Urine Crystals NONE, Urine Bacteria FEWH, Urine Casts NONE, Urine Mucus MODERATEH, Urine Culture Indicated NO 10/31/17 11:30: White Blood Count 11.8H, Red Blood Count 4.91, Hemoglobin 14.3, Hematocrit 41, Mean Corpuscular Volume 84, Mean Corpuscular Hemoglobin 29, Mean Corpuscular Hemoglobin Concent 35, Red Cell Distribution Width 13.7, Platelet Count 223, Mean Platelet Volume 11.0H, Neutrophils (%) (Auto) 85H, Lymphocytes (%) (Auto) 9L, Monocytes (%) (Auto) 6, Eosinophils (%) (Auto) 0, Basophils (%) (Auto) 0, Neutrophils # (Auto) 10.0H, Lymphocytes # (Auto) 1.0, Monocytes # (Auto) 0.8, Eosinophils # (Auto) 0.0, Basophils # (Auto) 0.0, Prothrombin Time 13.9, INR Comment 1.1, Activated Partial Thromboplast Time 25, Sodium Level 139, Potassium Level 4.1, Chloride Level 101, Carbon Dioxide Level 30, Anion Gap 8, Blood Urea Nitrogen 21H, Creatinine 1.22, Estimat Glomerular Filtration Rate 56 , BUN/Creatinine Ratio 17, Glucose Level 136H, Lactic Acid Level 1.80, Calcium Level 9.1, Total Bilirubin 0.6, Aspartate Amino Transf (AST/SGOT) 17, Alanine Aminotransferase (ALT/SGPT) 21, Alkaline Phosphatase 103, Total Protein 6.6, Albumin 3.7 10/31/17 18:11: Glucometer 137H 10/31/17 21:47: Glucometer 139H 11/01/17 00:05: Glucometer 144H 11/01/17 05:09: Glucometer 125H 11/01/17 06:00: White Blood Count 14.6H, Red Blood Count 4.65, Hemoglobin 13.5, Hematocrit 40, Mean Corpuscular Volume 86, Mean Corpuscular Hemoglobin 29, Mean Corpuscular Hemoglobin Concent 34, Red Cell Distribution Width 13.9, Platelet Count 210, Mean Platelet Volume 11.2H, Neutrophils (%) (Auto) 86H, Lymphocytes (%) (Auto) 6L, Monocytes (%) (Auto) 8, Eosinophils (%) (Auto) 0, Basophils (%) (Auto) 0, Neutrophils # (Auto) 12.6H, Lymphocytes # (Auto) 0.9L, Monocytes # (Auto) 1.1H, Eosinophils # (Auto) 0.0, Basophils # (Auto) 0.0, Sodium Level 141, Potassium Level 4.2, Chloride Level 103, Carbon Dioxide Level 27, Anion Gap 11, Blood Urea Nitrogen 20H, Creatinine 1.26, Estimat Glomerular Filtration Rate 54, BUN/ Creatinine Ratio 16, Glucose Level 134H, Calcium Level 8.9, Total Bilirubin 0.8 , Aspartate Amino Transf (AST/SGOT) 19, Alanine Aminotransferase (ALT/SGPT) 17, Alkaline Phosphatase 88, Total Protein 6.0L, Albumin 3.4 Assessment/Plan Assessment/Plan Assess & Plan/Chief Complaint Pneumonia. Nonresponsive. Hypoxia. Alzheimer's disease without agitation. COPD. Diabetes mellitus. DO NOT RESUSCITATE leukocytosis. Hypertension Clinical Quality Measures DVT/VTE Risk/Contraindication: Risk Factor Score Per Nursin RFS Level Per Nursing on Admit: 4+=Very High VI AKERS DO Nov 01, 2017 07:34
[2017-11-01] MEDS: clonazePAM 1 MG (KlonoPIN) TAB PO SCH ×3 (08:22→21:36)
[2017-11-01 08:30] VITALS: BP 119/57
[2017-11-01] MEDS: DULoxetine 30 MG (CYMBALTA) CAP PO SCH ×2 (08:48→21:36)
[2017-11-01] MEDS ORDERED: NON-FORMULARY MEDICATION 1 EA EA (Duloxetine HCl (Cymbalta) 60 MG) PO SCH (09:00)
[2017-11-01 11:30] VITALS: BP 104/42
--- NOTE | 2017-11-01 14:17 | Occ Therapy Progress Note ---
Therapy Progress Note OT received protocol order. Chart reviewed. Spoke with nursing. Nursing agrees for OT to attempt to wake pt. up. However, pt. has been asleep. OT did attempt to wake pt. up. Pt. does not awake, even with sternal rubs. Due to previous medical history, severe dementia, NH residence, it is not felt that pt. would benefit from skilled OT at this time. If pt. does wake, and does not have reported agitation, then OT would be happy to attempt therapy again. 1, visit 1320 Discharge pt. until appropriate for services. CRISTÓBAL ARREGUIN OT Nov 01, 2017 14:17
[2017-11-01 16:00] VITALS: BP 123/42
[2017-11-01 20:00] VITALS: BP 137/51
[2017-11-01] MEDS: inSUlin DETERMIR 1 UNIT/0.01 ML (LEVEMIR) CHARGE PER UNIT SQ SCH (21:34)
[2017-11-01] MEDS: traZODone 50 MG (DESYREL) TAB PO SCH (21:36)
[2017-11-02] VITALS: BP 112/63
[2017-11-02] MEDS: inSUlin (REGULAR) HUMAN 1 UNIT/0.01 ML (CHARGE PER UNIT) SC SCH ×4 (00:13→18:40)
[2017-11-02] MEDS: RT-ALBUTEROL/IPRATROPIUM 3 ML (DUONEB) VIAL INH SCH ×6 (02:03→21:40)
[2017-11-02 04:00] VITALS: BP 145/71
[2017-11-02] MEDS: MEROPENEM 500 MG in NS (IVPB) 100 ML IV SCH ×3 (04:19→20:42)
[2017-11-02 06:37] LABS: BASOPHILS % (AUTO) 0 % (0-10); EOSINOPHILS % (AUTO) 0 % (0-10); HEMATOCRIT 37 % (40-54); HEMOGLOBIN 12.2 G/DL (13.3-17.7); LYMPHOCYTES # (AUTO) 1.1 X 10^3 (1.0-4.0); LYMPHOCYTES % (AUTO) 9 % (12-44); MEAN CORPUSCULAR HEMOGLOBIN 29 PG (25-34); MEAN CORPUSCULAR HGB CONC 33 G/DL (32-36); MEAN CORPUSCULAR VOLUME 88 FL (80-99); MEAN PLATELET VOLUME 10.9 FL (7.4-10.4); MONOCYTES # (AUTO) 1.3 X 10^3 (0.0-1.0); MONOCYTES % (AUTO) 11 % (0-12); NEUTROPHILS # (AUTO) 9.7 X 10^3 (1.8-7.8); NEUTROPHILS % (AUTO) 80 % (42-75); PLATELET COUNT 197 10^3/uL (130-400); RED BLOOD COUNT 4.17 10^6/uL (4.35-5.85); RED CELL DISTRIBUTION WIDTH 14.1 % (10.0-14.5); WHITE BLOOD COUNT 12.2 10^3/uL (4.3-11.0)
[2017-11-02 06:52] LABS: BUN/CREATININE RATIO 19; CALCIUM 8.8 MG/DL (8.5-10.1); CARBON DIOXIDE 27 MMOL/L (21-32); CHLORIDE 111 MMOL/L (98-107); CREATININE SERUM 0.95 MG/DL (0.60-1.30); GFR ESTIMATED > 60; POTASSIUM 3.6 MMOL/L (3.6-5.0); SODIUM 143 MMOL/L (135-145)
[2017-11-02 07:04] LABS: GLUCOSE 60 MG/DL (70-105)
--- NOTE | 2017-11-02 07:32 | Progress Note (SOAP) ---
Subjective Time Seen by Provider: 07:25 Subjective/Events-last exam Patient is awake today and alert. Patient has improved. Evaluate speech therapy for feeding. Focused Exam Lactate Level 10/31/17 11:30: Lactic Acid Level 1.80 Objective Exam Vital Signs Date Time Temp Pulse Resp B/P (MAP) Pulse Ox O2 Delivery O2 Flow Rate FiO2 11/02/17 07:12 96 Vapotherm 30.00 80 11/02/17 04:00 98.2 64 20 145/71 (95) 96 Vapotherm 80.00 30.00 11/02/17 02:03 90 Vapotherm 30.00 80 11/02/17 00:00 98.2 67 20 112/63 (79) 95 Vapotherm 80.00 30.00 11/01/17 21:53 95 Vapotherm 40.00 100 11/01/17 21:00 Vapotherm 40.00 100 11/01/17 20:00 100.3 61 15 137/51 (79) 94 Vapotherm 100.00 40.00 11/01/17 18:51 90 Vapotherm 15.00 55 11/01/17 16:00 98.4 75 16 123/42 (69) 98 Vapotherm 55.00 15.00 11/01/17 14:21 90 Vapotherm 15.00 55 11/01/17 11:30 98.7 82 18 104/42 (62) 94 Vapotherm 55.00 15.00 11/01/17 11:11 90 Vapotherm 15.00 55 11/01/17 09:00 OxyMask 8.00 11/01/17 08:30 99.6 66 22 119/57 (77) Vapotherm 55.00 15.00 I & O 11/02/17 07:00 Intake Total 0 ml Output Total 1025 ml Balance -1025 ml Capillary Refill : Less Than 3 Seconds General Appearance: No Apparent Distress, WD/WN HEENT: Normal ENT Inspection Respiratory: No Accessory Muscle Use, No Respiratory Distress Cardiovascular: Regular Rate, Rhythm, No Murmur Results Lab Laboratory Tests 11/02/17 06:07 Laboratory Tests 11/01/17 11:49: Glucometer 159H 11/01/17 17:37: Glucometer 154H 11/02/17 00:11: Glucometer 116H 11/02/17 05:23: Glucometer 65L 11/02/17 06:07: White Blood Count 12.2H, Red Blood Count 4.17L, Hemoglobin 12.2L, Hematocrit 37L , Mean Corpuscular Volume 88, Mean Corpuscular Hemoglobin 29, Mean Corpuscular Hemoglobin Concent 33, Red Cell Distribution Width 14.1, Platelet Count 197, Mean Platelet Volume 10.9H, Neutrophils (%) (Auto) 80H, Lymphocytes (%) (Auto) 9L, Monocytes (%) (Auto) 11, Eosinophils (%) (Auto) 0, Basophils (%) (Auto) 0, Neutrophils # (Auto) 9.7H, Lymphocytes # (Auto) 1.1, Monocytes # (Auto) 1.3H, Eosinophils # (Auto) 0.0, Basophils # (Auto) 0.0, Sodium Level 143, Potassium Level 3.6, Chloride Level 111H, Carbon Dioxide Level 27, Anion Gap 5, Blood Urea Nitrogen 18, Creatinine 0.95, Estimat Glomerular Filtration Rate > 60, BUN/ Creatinine Ratio 19, Glucose Level 60*L, Calcium Level 8.8 11/02/17 06:29: Glucometer 59*L 11/02/17 06:52: Glucometer 71 Microbiology 10/31/17 Blood Culture - Preliminary, Resulted No growth Assessment/Plan Assessment/Plan Assess & Plan/Chief Complaint Pneumonia. Nonresponsive. Hypoxia. Alzheimer's disease without agitation. COPD. Diabetes mellitus. DO NOT RESUSCITATE leukocytosis. Hypertension. . 11/02/17. Pneumonia. Patient responsive today. Hypoxia. Alzheimer's disease without agitation. COPD. DO NOT RESUSCITATE. Hypertension. Patient improving Clinical Quality Measures DVT/VTE Risk/Contraindication: Risk Factor Score Per Nursin RFS Level Per Nursing on Admit: 4+=Very High VI AKERS DO Nov 02, 2017 07:32
--- NOTE | 2017-11-02 07:50 | Diagnostic Imaging Report ---
INDICATION: Cough with surveillance imaging of pneumonia. COMPARISON: 10/31/2017. FINDINGS: Worsening of right basilar airspace opacities. Left perihilar and basilar pulmonary opacities have also progressed. No pleural effusion or pneumothorax. Stable cardiac mediastinal silhouette. IMPRESSION: Worsening of bibasilar airspace consolidations, likely due to multifocal pneumonia. Dictated by: Dictated on workstation # [id number]
[2017-11-02 08:00] VITALS: BP 135/60
[2017-11-02] MEDS: ENOXAPARIN 40 MG/0.4 ML (LOVENOX) SYR SC SCH (09:06)
[2017-11-02] MEDS: DULoxetine 30 MG (CYMBALTA) CAP PO SCH ×2 (09:06→20:43)
[2017-11-02] MEDS: clonazePAM 1 MG (KlonoPIN) TAB PO SCH ×3 (09:06→20:43)
[2017-11-02] MEDS: NS IV 1000 ML 1,000 ML IV SCH (09:07)
[2017-11-02] MEDS ORDERED: DEXTROSE 50% 50 ML (IMS) SYR IV PRN (11:45)
[2017-11-02] MEDS ORDERED: GLUCAGON EMERGENCY 1 MG/KIT IM PRN (11:45)
[2017-11-02] MEDS ORDERED: DEXTROSE 10% IV SOLUTION 1,000 ML IV PRN (11:45)
[2017-11-02 12:32] VITALS: BP 101/56
--- NOTE | 2017-11-02 12:34 | ST Dysphagia Evaluation ---
Speech Evaluation-General Medical Diagnosis Pneumonia facility-acquired, severe hypoxia, COPD, severe dementia Therapy Diagnosis Therapy Diagnosis: dysphagia Precautions Precautions/Isolations: Aspiration, Fall Prevention, Standard Precautions Referral Referring Physician: Allen Reason for Referral: Evaluation/Treatment Medical History COPD, HTN, renal failure, constipation Social History Home: [facility] Speech PLF/Current-Dysphagia Prior Level of Function The patient was on puree diet, thin liquids at [place]. Subjective Pt asleep upon DICE MANAGER arrival, difficult to awaken. Sternal rub awakened pt to open mouth, swallow and take 1/2 tsp of water via spoon x3. Pt then fell back asleep and was difficult to awaken. Oral Motor Skills Ability to Follow Directions: Poor RN indicates pt has not been eating much d/t decreased alertness. Coughed with thin liquids via straw during shift foreman last night. Oral-Facial Assessment Pt unable to follow commands to assess lingual and labial movement. Volitional Dry Swallow: Yes Dysphagia Evaluation Consistencies Presented: Thin Liquid, Pureed Thin liquid via spoon Oral Phase: Reduced Oral Transit Pharyngeal Phase: Delayed Laryngeal Elevation, Delayed Swallow Thin liquids via spoon Small snacks of puree (10 bites) Feed when alert only Swallowing Precautions: Liquids from Spoon, Oral Supervision Staff, Small Bites and Sips, Sitting Upright 90 Degrees, Sitting 90 Degrees 30 Post Intake Speech Short Term Goals Short Term Goals Short Term Goals The patient will tolerate 9/10 thin liquid trials by spoon with no coughing or s /s of aspiration/penetration. Speech Intermediate Goals An Employee Sponsor Or Advocate And Goals During an observed snack by DICE MANAGER, the pt will tolerate least restrictive diet with no s/s of aspiration/penetration. Speech-Plan Treatment Plan Speech Therapy Treatment Plan: Continue Plan of Care DICE MANAGER to monitor for safe intake and provide diet recommendations. Frequency: 3 times per week Estimated Hrs Per Day: .25 hour per day Rehab Potential: Fair Time Speech Therapy Time In: 11:10 Speech Therapy Time Out: 11:30 Total Billed Time: 20 Billed Treatment Time 1, [place] NAVA Nov 02, 2017 12:34
[2017-11-02 16:13] VITALS: BP 98/63
[2017-11-02 20:00] VITALS: BP 153/67
[2017-11-02] MEDS: traZODone 50 MG (DESYREL) TAB PO SCH (20:43)
[2017-11-03] VITALS: BP 155/78
[2017-11-03] MEDS: NS IV 1000 ML 1,000 ML IV SCH ×3 (02:10→22:25)
[2017-11-03] MEDS: RT-ALBUTEROL/IPRATROPIUM 3 ML (DUONEB) VIAL INH SCH ×6 (02:27→22:08)
[2017-11-03] MEDS: MEROPENEM 500 MG in NS (IVPB) 100 ML IV SCH ×3 (03:38→20:06)
[2017-11-03 04:00] VITALS: BP 155/69
--- NOTE | 2017-11-03 05:10 | Pulmonary Consultation ---
History of Present Illness History of Present Illness Date of Consultation 11/03/17 05:05 Time Seen by Provider: 05:05 Date of Admission History of Present Illness 87yo with hx of severe dementia from ECF presented to ED via EMS secondary to hypoxia Sp02 76% upon arrival. Pt was placed on 3 liter NC and Sp02 did improve to only 86%. Pt Does not answer any questions secondary to severe dementia. Unable to obtain ROS. I am consulted for pulmonary management. Allergies and Home Medications Allergies Coded Allergies: Penicillins (Unverified Allergy, Unknown, 10/31/17) hydrocodone (Unverified Allergy, Unknown, 10/31/17) levofloxacin (Unverified Allergy, Unknown, 10/31/17) Home Medications Acetaminophen 325 Mg Tablet, 650 MG PO Q4H PRN for PAIN-MODERATE, (Reported) Albuterol Sulfate 0.63 Mg/3 Ml Vial.neb, 0.63 MG IH Q6H PRN for SHORTNESS OF BREATH, (Reported) Bisacodyl 10 Mg Supp.rect, 10 MG RC DAILY PRN for CONSTIPATION-4TH LINE, ( Reported) Hyoscyamine Sulfate 0.125 Mg Tablet, 0.125 MG PO Q4H PRN for EXCESSIVE SECRETIONS, (Reported) Insulin Aspart 300 Units/3 Ml Solution, SQ AC, (Reported) 80-100 = 2 UNITS 101-150 =4 UNITS 151-200 =5 UNITS 201-250 =6 UNITS 251-300 = 7 UNITS 301-350 =8 UNITS 351-400 =9 UNITS OVER 400 GIVE 10 UNITS AND NOTIFY PCP Insulin Degludec 100 Unit/1 Ml Insuln.pen, 20 UNITS SQ HS, (Reported) Mag Hydrox/Al Hydrox/Simeth 355 Ml Oral.susp, 30 ML PO EVERY 2 HOURS PRN for HEARTBURN, (Reported) Magnesium Hydroxide 400 Mg/5 Ml Oral.susp, 30 ML PO DAILY PRN for CONSTIPATION- 7TH LINE, (Reported) Polyethylene Glycol 3350 17 Gm Powd.pack, 17 GM PO DAILY PRN for CONSTIPATION- 2ND LINE, (Reported) Past [place] Hx Past Med/Social Hx: Reviewed Nursing Past Med/Soc Hx, Reviewed and Corrections made Patient Social History Alcohol Use: Denies Use Recreational Drug Use: No (unknown) Smoking Status: Unknown if Ever Smoked 2nd Hand Smoke Exposure: No Recent Foreign Travel: No Contact w/Someone Who Travel: No Recent Infectious Disease Expo: No Recent Hopitalizations: Yes (2016) Physical Abuse: No Sexual Abuse: No Immunizations Up To Date Tetanus Booster (TDap): Unknown Seasonal Allergies Seasonal Allergies: No Past Medical History Surgeries: No (unknown) Respiratory: Yes Pneumonia Cardiac: No Hypertension Neurological: Yes (ALZHEIMERS) Dementia Reproductive Disorders: No Genitourinary: No Bladder Infection, Renal Failure Gastrointestinal: No (ABDOMINAL PAIN) Chronic Constipation Musculoskeletal: No Arthritis Endocrine: Yes Diabetes, Insulin dep HEENT: No Cancer: No Psychosocial: Yes (Alzheimer's dementia) Sleep Difficulties, Anxiety, Violent Behavior, Depression Nursing Suicide Risk Score: 0 Integumentary: No Blood Disorders: Yes (ANEMIA) Family Medical History Reviewed Nursing Family Hx Patient reports no known family medical history. Diabetes History via records as patient is unable to provide details. Review of Systems Time Seen by Provider: 06:40 Exam Exam Vital Signs Date Time Temp Pulse Resp B/P (MAP) Pulse Ox O2 Delivery O2 Flow Rate FiO2 11/03/17 04:00 98.5 65 19 155/69 (97) 95 Vapotherm 60.00 20.00 11/03/17 01:21 93 Vapotherm 20.00 60 11/03/17 00:00 99.2 77 20 155/78 (103) 94 Vapotherm 60.00 20.00 11/02/17 21:41 91 Vapotherm 20.00 60 11/02/17 21:00 96 Vapotherm 20.00 60 11/02/17 20:00 99.0 75 16 153/67 (95) 92 Vapotherm 60.00 20.00 11/02/17 19:11 88 Vapotherm 20.00 60 11/02/17 16:13 97.0 66 16 98/63 (75) 96 Vapotherm 60.00 20.00 11/02/17 14:09 92 Vapotherm 20.00 60 11/02/17 12:32 97.0 58 16 101/56 (71) 96 Vapotherm 60.00 20.00 11/02/17 10:39 96 Vapotherm 25.00 70 11/02/17 09:00 96 Vapotherm 25.00 70 11/02/17 08:00 98.0 69 26 135/60 (85) 96 Vapotherm 70.00 25.00 11/02/17 07:12 96 Vapotherm 30.00 80 I & O 11/03/17 07:00 Intake Total 900 ml Output Total 700 ml Balance 200 ml General Appearance: No Apparent Distress, WD/WN HEENT: Normal ENT Inspection Neck: Full Range of Motion, Normal Inspection, Non Tender, Supple, Carotid Bruit Respiratory: No Accessory Muscle Use, No Respiratory Distress Cardiovascular: Regular Rate, Rhythm, No Murmur Capillary Refill: Less Than 3 Seconds Gastrointestinal: non tender, soft Extremity: Normal Capillary Refill, Normal Inspection, Normal Range of Motion, Non Tender, No Calf Tenderness, No Pedal Edema Neurologic/Psychiatric: Alert, Oriented x3, No Motor/Sensory Deficits, Normal Mood/Affect, Other (dementia in addition to unresponsive status) Skin: Normal Color, Warm/Dry Lymphatic: No Adenopathy Results Lab Laboratory Tests 11/01/17 06:00 11/02/17 06:07 Assessment/Plan Assessment/Plan -Pneumonia with hypoxia - probable aspiration -swallow eval pending -Continue Merrem ( allergic to PCN) -IVF -Severe Dementia DM 254 ILENE WINKLER DO Nov 03, 2017 05:10
[2017-11-03] MEDS: inSUlin (REGULAR) HUMAN 1 UNIT/0.01 ML (CHARGE PER UNIT) SC SCH ×3 (05:55→21:12)
[2017-11-03 06:19] LABS: BASOPHILS % (AUTO) 0 % (0-10); EOSINOPHILS # (AUTO) 0.1 10^3/uL (0.0-0.3); EOSINOPHILS % (AUTO) 1 % (0-10); HEMATOCRIT 34 % (40-54); HEMOGLOBIN 11.3 G/DL (13.3-17.7); LYMPHOCYTES # (AUTO) 0.9 X 10^3 (1.0-4.0); LYMPHOCYTES % (AUTO) 10 % (12-44); MEAN CORPUSCULAR HEMOGLOBIN 29 PG (25-34); MEAN CORPUSCULAR HGB CONC 33 G/DL (32-36); MEAN CORPUSCULAR VOLUME 88 FL (80-99); MEAN PLATELET VOLUME 11.1 FL (7.4-10.4); MONOCYTES % (AUTO) 12 % (0-12); NEUTROPHILS # (AUTO) 6.6 X 10^3 (1.8-7.8); NEUTROPHILS % (AUTO) 77 % (42-75); PLATELET COUNT 185 10^3/uL (130-400); RED BLOOD COUNT 3.91 10^6/uL (4.35-5.85); RED CELL DISTRIBUTION WIDTH 13.9 % (10.0-14.5); WHITE BLOOD COUNT 8.6 10^3/uL (4.3-11.0)
[2017-11-03 06:44] LABS: ALANINE AMINOTRANSFERASE 25 U/L (0-55); ALBUMIN 2.8 GM/DL (3.2-4.5); ALKALINE PHOSPHATASE 88 U/L (40-136); BILIRUBIN,TOTAL 0.5 MG/DL (0.1-1.0); BUN/CREATININE RATIO 20; CALCIUM 8.7 MG/DL (8.5-10.1); CARBON DIOXIDE 24 MMOL/L (21-32); CHLORIDE 110 MMOL/L (98-107); CREATININE SERUM 0.97 MG/DL (0.60-1.30); GFR ESTIMATED > 60; GLUCOSE 213 MG/DL (70-105); POTASSIUM 3.9 MMOL/L (3.6-5.0); SODIUM 142 MMOL/L (135-145); TOTAL PROTEIN 5.5 GM/DL (6.4-8.2)
--- NOTE | 2017-11-03 07:40 | Progress Note (SOAP) ---
Subjective Time Seen by Provider: 07:35 Subjective/Events-last exam Patient keeping his eyes closed today. Patient not aspirating with diet on now. Patient has severe dementia. To see how patient does have nasal oxygen. Patient stable. Focused Exam Lactate Level 10/31/17 11:30: Lactic Acid Level 1.80 Objective Exam Vital Signs Date Time Temp Pulse Resp B/P (MAP) Pulse Ox O2 Delivery O2 Flow Rate FiO2 11/03/17 06:57 93 Vapotherm 20.00 60 11/03/17 04:00 98.5 65 19 155/69 (97) 95 Vapotherm 60.00 20.00 11/03/17 01:21 93 Vapotherm 20.00 60 11/03/17 00:00 99.2 77 20 155/78 (103) 94 Vapotherm 60.00 20.00 11/02/17 21:41 91 Vapotherm 20.00 60 11/02/17 21:00 96 Vapotherm 20.00 60 11/02/17 20:00 99.0 75 16 153/67 (95) 92 Vapotherm 60.00 20.00 11/02/17 19:11 88 Vapotherm 20.00 60 11/02/17 16:13 97.0 66 16 98/63 (75) 96 Vapotherm 60.00 20.00 11/02/17 14:09 92 Vapotherm 20.00 60 11/02/17 12:32 97.0 58 16 101/56 (71) 96 Vapotherm 60.00 20.00 11/02/17 10:39 96 Vapotherm 25.00 70 11/02/17 09:00 96 Vapotherm 25.00 70 11/02/17 08:00 98.0 69 26 135/60 (85) 96 Vapotherm 70.00 25.00 I & O 11/03/17 07:00 Intake Total 2000 ml Output Total 1200 ml Balance 800 ml Capillary Refill : Less Than 3 Seconds General Appearance: No Apparent Distress, WD/WN Respiratory: No Accessory Muscle Use, No Respiratory Distress Cardiovascular: Regular Rate, Rhythm Results Lab Laboratory Tests 11/03/17 06:01 Laboratory Tests 11/02/17 11:19: Glucometer 84 11/02/17 13:22: Glucometer 89 11/02/17 18:30: Glucometer 81 11/03/17 05:44: Glucometer 260H 11/03/17 06:01: White Blood Count 8.6, Red Blood Count 3.91L, Hemoglobin 11.3L, Hematocrit 34L, Mean Corpuscular Volume 88, Mean Corpuscular Hemoglobin 29, Mean Corpuscular Hemoglobin Concent 33, Red Cell Distribution Width 13.9, Platelet Count 185, Mean Platelet Volume 11.1H, Neutrophils (%) (Auto) 77H, Lymphocytes (%) (Auto) 10L, Monocytes (%) (Auto) 12, Eosinophils (%) (Auto) 1, Basophils (%) (Auto) 0, Neutrophils # (Auto) 6.6, Lymphocytes # (Auto) 0.9L, Monocytes # (Auto) 1.0, Eosinophils # (Auto) 0.1, Basophils # (Auto) 0.0, Sodium Level 142, Potassium Level 3.9, Chloride Level 110H, Carbon Dioxide Level 24, Anion Gap 8, Blood Urea Nitrogen 19H, Creatinine 0.97, Estimat Glomerular Filtration Rate > 60, BUN /Creatinine Ratio 20, Glucose Level 213H, Calcium Level 8.7, Total Bilirubin 0.5 , Aspartate Amino Transf (AST/SGOT) 37H, Alanine Aminotransferase (ALT/SGPT) 25 , Alkaline Phosphatase 88, Total Protein 5.5L, Albumin 2.8L Microbiology 10/31/17 Blood Culture - Preliminary, Resulted No growth Assessment/Plan Assessment/Plan Assess & Plan/Chief Complaint Pneumonia. Nonresponsive. Hypoxia. Alzheimer's disease without agitation. COPD. Diabetes mellitus. DO NOT RESUSCITATE leukocytosis. Hypertension. . 11/02/17. Pneumonia. Patient responsive today. Hypoxia. Alzheimer's disease without agitation. COPD. DO NOT RESUSCITATE. Hypertension. Patient improving. . 11/03/17. Pneumonia. Patient sleeping comfortably. Hypoxia. Alzheimer's disease without agitation. COPD. DO NOT RESUSCITATE. Patient appears as good as he will get. Hypertension. Waiting for chest x-ray results Clinical Quality Measures DVT/VTE Risk/Contraindication: Risk Factor Score Per Nursin RFS Level Per Nursing on Admit: 4+=Very High VI AKERS DO Nov 03, 2017 07:40
--- NOTE | 2017-11-03 07:44 | Progress Note (SOAP) ---
Subjective Time Seen by Provider: 07:40 Subjective/Events-last exam Patient keeping his eyes closed today. Patient had speech therapy and diet he is on now he is not aspirating Patient has severe dementia. Without agitation. Patient is good as good he will get Focused Exam Lactate Level 10/31/17 11:30: Lactic Acid Level 1.80 Objective Exam Vital Signs Date Time Temp Pulse Resp B/P (MAP) Pulse Ox O2 Delivery O2 Flow Rate FiO2 11/03/17 06:57 93 Vapotherm 20.00 60 11/03/17 04:00 98.5 65 19 155/69 (97) 95 Vapotherm 60.00 20.00 11/03/17 01:21 93 Vapotherm 20.00 60 11/03/17 00:00 99.2 77 20 155/78 (103) 94 Vapotherm 60.00 20.00 11/02/17 21:41 91 Vapotherm 20.00 60 11/02/17 21:00 96 Vapotherm 20.00 60 11/02/17 20:00 99.0 75 16 153/67 (95) 92 Vapotherm 60.00 20.00 11/02/17 19:11 88 Vapotherm 20.00 60 11/02/17 16:13 97.0 66 16 98/63 (75) 96 Vapotherm 60.00 20.00 11/02/17 14:09 92 Vapotherm 20.00 60 11/02/17 12:32 97.0 58 16 101/56 (71) 96 Vapotherm 60.00 20.00 11/02/17 10:39 96 Vapotherm 25.00 70 11/02/17 09:00 96 Vapotherm 25.00 70 11/02/17 08:00 98.0 69 26 135/60 (85) 96 Vapotherm 70.00 25.00 I & O 11/03/17 07:00 Intake Total 2000 ml Output Total 1200 ml Balance 800 ml Capillary Refill : Less Than 3 Seconds General Appearance: No Apparent Distress, WD/WN Respiratory: No Accessory Muscle Use, No Respiratory Distress Cardiovascular: Regular Rate, Rhythm, No Murmur Results Lab Laboratory Tests 11/03/17 06:01 Laboratory Tests 11/02/17 11:19: Glucometer 84 11/02/17 13:22: Glucometer 89 11/02/17 18:30: Glucometer 81 4/11/18 05:44: Glucometer 260H 11/03/17 06:01: White Blood Count 8.6, Red Blood Count 3.91L, Hemoglobin 11.3L, Hematocrit 34L, Mean Corpuscular Volume 88, Mean Corpuscular Hemoglobin 29, Mean Corpuscular Hemoglobin Concent 33, Red Cell Distribution Width 13.9, Platelet Count 185, Mean Platelet Volume 11.1H, Neutrophils (%) (Auto) 77H, Lymphocytes (%) (Auto) 10L, Monocytes (%) (Auto) 12, Eosinophils (%) (Auto) 1, Basophils (%) (Auto) 0, Neutrophils # (Auto) 6.6, Lymphocytes # (Auto) 0.9L, Monocytes # (Auto) 1.0, Eosinophils # (Auto) 0.1, Basophils # (Auto) 0.0, Sodium Level 142, Potassium Level 3.9, Chloride Level 110H, Carbon Dioxide Level 24, Anion Gap 8, Blood Urea Nitrogen 19H, Creatinine 0.97, Estimat Glomerular Filtration Rate > 60, BUN /Creatinine Ratio 20, Glucose Level 213H, Calcium Level 8.7, Total Bilirubin 0.5 , Aspartate Amino Transf (AST/SGOT) 37H, Alanine Aminotransferase (ALT/SGPT) 25 , Alkaline Phosphatase 88, Total Protein 5.5L, Albumin 2.8L Microbiology 10/31/17 Blood Culture - Preliminary, Resulted No growth Assessment/Plan Assessment/Plan Assess & Plan/Chief Complaint Pneumonia. Nonresponsive. Hypoxia. Alzheimer's disease without agitation. COPD. Diabetes mellitus. DO NOT RESUSCITATE leukocytosis. Hypertension. . 11/02/17. Pneumonia. Patient responsive today. Hypoxia. Alzheimer's disease without agitation. COPD. DO NOT RESUSCITATE. Hypertension. Patient improving. . 11/03/17. Pneumonia. Patient sleeping comfortably. Hypoxia. Alzheimer's disease without agitation. COPD. DO NOT RESUSCITATE. Patient appears as good as he will get. Hypertension. Waiting for chest x-ray results Clinical Quality Measures DVT/VTE Risk/Contraindication: Risk Factor Score Per Nursin RFS Level Per Nursing on Admit: 4+=Very High VI AKERS DO Nov 03, 2017 07:44
--- NOTE | 2017-11-03 07:45 | Diagnostic Imaging Report ---
INDICATION: Pneumonia. TECHNIQUE: Single frontal view of the chest. COMPARISON: 11/02/2017 FINDINGS: Patchy airspace opacities are seen in the lung bases and the right midlung. These appear mildly increased since the prior study. Lung volumes are mildly low. There is mild cardiomegaly. A small left pleural effusion is present. No pneumothorax is seen. IMPRESSION: Mildly increased airspace opacities in the lungs bilaterally, right greater than left, consistent with history of pneumonia. There is a small left pleural effusion. Dictated by: Dictated on workstation # [id number]
[2017-11-03 08:00] VITALS: BP 124/58
[2017-11-03] MEDS: ENOXAPARIN 40 MG/0.4 ML (LOVENOX) SYR SC SCH (08:26)
[2017-11-03] MEDS: DULoxetine 30 MG (CYMBALTA) CAP PO SCH ×2 (08:26→20:06)
[2017-11-03] MEDS: SENNA W/DOCUSATE (SENOKOT S) TABLET PO SCH ×2 (08:26→20:07)
[2017-11-03] MEDS: clonazePAM 1 MG (KlonoPIN) TAB PO SCH ×3 (08:26→20:07)
[2017-11-03] MEDS ORDERED: BISACODYL 10 MG SUPP (DULCOLAX) PR PRN (08:30)
--- NOTE | 2017-11-03 10:19 | Speech Therapy Daily Note ---
Speech Daily Progress Note Subjective Date Seen by Provider: Nov 03, 2017 Time Seen by Provider: 09:15 The patient was seated upright in bed, alert upon entrance. The patient was agreeable to re-evaluation of swallowing. Objective Thin Liquid (via straw): The patient was provided ten drinks of thin liquid via straw. No signs/symptoms of aspiration were demonstrated with multiple boluses provided. The patient does demonstrate impulsivity, therefore, straw sips must be restricted by staff or clinician (the patient takes large continuous drinks if performed independently). The patient's current straw (clear plastic mug) was removed and a smaller straw was placed. The smaller straw helped to restrict the size of drink the patient was able to consume. Puree: No signs/symptoms of aspiration were demonstrated with multiple boluses of puree consistency. The speech pathologist continues to recommend: - Puree with thin liquids. - 1:1 supervision (staff, caregiver) through PO intake. - Crush medication and place in puree for administration. - Upright and alert for all PO. Assessment Assessment Current Status: Good Progress Treatment Plan Discontinue ST, Goals Met Speech Short Term Goals Short Term Goals Short Term Goals The patient will tolerate 9/10 thin liquid trials by spoon with no coughing or s /s of aspiration/penetration. MET Speech Group Home Goals Maintenance And Utilities Supervisor Goals During an observed snack by WELDER/FABRICATOR, the pt will tolerate least restrictive diet with no s/s of aspiration/penetration. MET Speech-Plan Treatment Plan Speech Therapy Treatment Plan: Discontinue ST, Goals Met Skilled speech pathology to discharge patient as he has met PO goals placed by ST. Frequency: 3 times per week Estimated Hrs Per Day: .25 hour per day Rehab Potential: Fair Safety Risks/Education Teaching Recipient: Patient Teaching Methods: Discussion Response to Teaching: Unable to Comprehend Education Topics Provided: Swallowing Strategies, Results, Recommendations Time Speech Therapy Time In: 09:15 Speech Therapy Time Out: 09:30 Total Billed Time: 15 Billed Treatment Time 1, GERARDO TOLBERT Nov 03, 2017 10:19
[2017-11-03] MEDS ORDERED: inSUlin (REGULAR) HUMAN 1 UNIT/0.01 ML (CHARGE PER UNIT) SC SCH (11:00)
[2017-11-03 12:00] VITALS: BP 126/71
[2017-11-03] MEDS: ALPRAZolam 0.25 MG (XANAX) TAB PO PRN ×2 (13:55→21:14)
[2017-11-03 16:33] VITALS: BP 152/70
[2017-11-03] MEDS: traZODone 50 MG (DESYREL) TAB PO SCH (20:06)
[2017-11-04] VITALS: BP 153/66
[2017-11-04] MEDS: RT-ALBUTEROL/IPRATROPIUM 3 ML (DUONEB) VIAL INH SCH ×6 (01:15→21:46)
[2017-11-04] MEDS: MEROPENEM 500 MG in NS (IVPB) 100 ML IV SCH ×3 (04:07→19:57)
[2017-11-04] MEDS: inSUlin (REGULAR) HUMAN 1 UNIT/0.01 ML (CHARGE PER UNIT) SC SCH ×4 (05:51→20:55)
[2017-11-04 06:44] LABS: HEMOGLOBIN 12.9 G/DL (13.3-17.7); MEAN PLATELET VOLUME 10.5 FL (7.4-10.4); RED BLOOD COUNT 4.44 10^6/uL (4.35-5.85); RED CELL DISTRIBUTION WIDTH 13.7 % (10.0-14.5); WHITE BLOOD COUNT 7.8 10^3/uL (4.3-11.0)
[2017-11-04 07:07] LABS: BUN/CREATININE RATIO 19; CALCIUM 8.5 MG/DL (8.5-10.1); CARBON DIOXIDE 23 MMOL/L (21-32); CHLORIDE 108 MMOL/L (98-107); CREATININE SERUM 0.86 MG/DL (0.60-1.30); GFR ESTIMATED > 60; GLUCOSE 174 MG/DL (70-105); POTASSIUM 3.9 MMOL/L (3.6-5.0); SODIUM 142 MMOL/L (135-145)
--- NOTE | 2017-11-04 07:54 | Diagnostic Imaging Report ---
EXAM: CHEST 1 VIEW, AP/PA ONLY INDICATION: Pneumonia. COMPARISON: Chest radiograph 11/03/2017. FINDINGS: Low lung volumes. Cardiomegaly. Calcified aorta. Central pulmonary vascularity is obscured. Airspace consolidation in the right mid and lower lung. Dense consolidation in the left lung base. Probable small left pleural effusion. IMPRESSION: Evaluation limited by low lung volumes. Persistent airspace opacity in the right mid and lower lung. Dense left basilar consolidation and small left pleural effusion. Dictated by: Dictated on workstation # [id number]
[2017-11-04 08:00] VITALS: BP 150/60
[2017-11-04] MEDS: SENNA W/DOCUSATE (SENOKOT S) TABLET PO SCH ×2 (08:11→20:00)
[2017-11-04] MEDS: clonazePAM 1 MG (KlonoPIN) TAB PO SCH ×2 (08:11→20:00)
[2017-11-04] MEDS: DULoxetine 30 MG (CYMBALTA) CAP PO SCH ×2 (08:11→20:00)
[2017-11-04] MEDS: ENOXAPARIN 40 MG/0.4 ML (LOVENOX) SYR SC SCH (08:11)
[2017-11-04 16:00] VITALS: BP 153/67
[2017-11-04] MEDS: NS IV 1000 ML 1,000 ML IV SCH (16:51)
[2017-11-04] MEDS: traZODone 50 MG (DESYREL) TAB PO SCH (20:00)
--- NOTE | 2017-11-04 20:21 | Progress Note (SOAP) ---
Subjective Subjective Date Seen by Provider: Nov 04, 2017 Time Seen by Provider: 06:30 87 yo M with progressing dementia admitted for aspiration and pneumonia. He was combative last night but eventually fell asleep. AM blood sugar was 146. He is on 10L oxygen. Patient easily awakened this AM. Attempts to talk but I was not able to understand. Review of Systems ROS Unable to Obtain: unable to ascertain due to dementia and AMS Objective Exam Vital Signs Vital Signs Date Time Temp Pulse Resp B/P (MAP) Pulse Ox O2 Delivery O2 Flow Rate FiO2 11/04/17 19:08 96 High Flow N/C 10.00 11/04/17 16:00 97.9 71 18 153/67 (95) 92 High Flow N/C 10.00 11/04/17 13:16 93 High Flow N/C 10.00 11/04/17 10:09 93 High Flow N/C 10.00 11/04/17 09:00 High Flow N/C 10.00 11/04/17 08:00 96.9 53 16 150/60 (90) 90 High Flow N/C 10.00 11/04/17 06:45 90 High Flow N/C 10.00 11/04/17 01:15 91 High Flow N/C 10.00 11/04/17 00:00 98.4 56 16 153/66 (95) 98 High Flow N/C 10.00 11/03/17 22:08 94 High Flow N/C 10.00 11/03/17 21:00 Vapotherm 15.00 50 I & O 11/04/17 07:00 Intake Total 2150 ml Output Total 1275 ml Balance 875 ml General Appearance: No Apparent Distress, Mild Distress Eyes: Bilateral Eye Normal Inspection, Bilateral Eye PERRL HEENT: PERRL/EOMI Neck: Full Range of Motion, Normal Inspection, Non Tender, Supple Respiratory: Decreased Breath Sounds (bases) Cardiovascular: Regular Rate, Rhythm, No Murmur Gastrointestinal: Normal Bowel Sounds, Non Tender, Soft Back: No CVA Tenderness Extremity: Normal Capillary Refill, Normal Inspection, Normal Range of Motion, Non Tender, No Pedal Edema Neurologic/Psychiatric: Alert, Depressed Affect, Other (dementia in addition to unresponsive status) Skin: Normal Color, Warm/Dry Lymphatic: No Adenopathy Results Lab Laboratory Tests 11/03/17 20:48: Glucometer 235H 4/12/18 05:23: Glucometer 146H 11/04/17 06:34: White Blood Count 7.8, Red Blood Count 4.44, Hemoglobin 12.9L, Hematocrit 39L, Mean Corpuscular Volume 87, Mean Corpuscular Hemoglobin 29, Mean Corpuscular Hemoglobin Concent 33, Red Cell Distribution Width 13.7, Platelet Count 199, Mean Platelet Volume 10.5H, Sodium Level 142, Potassium Level 3.9, Chloride Level 108H, Carbon Dioxide Level 23, Anion Gap 11, Blood Urea Nitrogen 16, Creatinine 0.86, Estimat Glomerular Filtration Rate > 60, BUN/Creatinine Ratio 19, Glucose Level 174H, Calcium Level 8.5 11/04/17 11:17: Glucometer 183H 11/04/17 15:57: Glucometer 195H Microbiology 10/31/17 Blood Culture - Preliminary, Resulted No growth Assessment/Plan Assessment/Plan Assessment and Plan 11/03/17 Speech pathology evaluation recommends Diet: Puree with thin liquids. - 1:1 supervision (staff, caregiver) through PO intake. - Crush medication and place in puree for administration. - Upright and alert for all PO. Continue meropenem- CXR still demonstrating right middle lobe opacity and left lower lung effusion, infiltrate Dr. Cardona consulted. Pt is DNR. Dispo: quality of life is poor with his progressing Alzheimer dementia. Pt is DNR. Continue to monitor for improvement. Problems: (1) Pneumonia involving right lung Qualifiers: Qualified Codes: J18.1 - Lobar pneumonia, unspecified organism (2) Hypoxia Assessment & Plan: supportive oxygen (3) Dementia Qualifiers: Qualified Codes: G30.1 - Alzheimer's disease with late onset; F02.80 - Dementia in other diseases classified elsewhere without behavioral disturbance (4) Diabetes mellitus Qualifiers: Qualified Codes: E11.59 - Type 2 diabetes mellitus with other circulatory complications; Z79.4 - correction (current) use of insulin (5) Constipation, chronic (6) Leukocytosis Qualifiers: Qualified Codes: D72.823 - Leukemoid reaction (7) Hypertension Qualifiers: Qualified Codes: I10 - Essential (primary) hypertension Clinical Quality Measures DVT/VTE Risk/Contraindication: Risk Factor Score Per Nursin RFS Level Per Nursing on Admit: 4+=Very High ZAY MOREAU MD Nov 04, 2017 20:21
[2017-11-05 00:08] VITALS: BP 160/77
[2017-11-05] MEDS: RT-ALBUTEROL/IPRATROPIUM 3 ML (DUONEB) VIAL INH SCH ×6 (02:02→22:36)
[2017-11-05] MEDS: MEROPENEM 500 MG in NS (IVPB) 100 ML IV SCH ×3 (03:11→19:38)
[2017-11-05] MEDS: inSUlin (REGULAR) HUMAN 1 UNIT/0.01 ML (CHARGE PER UNIT) SC SCH ×4 (05:17→20:49)
[2017-11-05 06:46] LABS: BASOPHILS % (AUTO) 0 % (0-10); EOSINOPHILS # (AUTO) 0.3 10^3/uL (0.0-0.3); EOSINOPHILS % (AUTO) 4 % (0-10); HEMATOCRIT 34 % (40-54); HEMOGLOBIN 11.2 G/DL (13.3-17.7); LYMPHOCYTES % (AUTO) 15 % (12-44); MEAN CORPUSCULAR HEMOGLOBIN 29 PG (25-34); MEAN CORPUSCULAR HGB CONC 33 G/DL (32-36); MEAN CORPUSCULAR VOLUME 87 FL (80-99); MEAN PLATELET VOLUME 10.7 FL (7.4-10.4); MONOCYTES # (AUTO) 0.9 X 10^3 (0.0-1.0); MONOCYTES % (AUTO) 14 % (0-12); NEUTROPHILS # (AUTO) 4.3 X 10^3 (1.8-7.8); NEUTROPHILS % (AUTO) 66 % (42-75); PLATELET COUNT 243 10^3/uL (130-400); RED BLOOD COUNT 3.91 10^6/uL (4.35-5.85); RED CELL DISTRIBUTION WIDTH 13.2 % (10.0-14.5); WHITE BLOOD COUNT 6.4 10^3/uL (4.3-11.0)
[2017-11-05 07:13] LABS: BUN/CREATININE RATIO 19; CALCIUM 8.5 MG/DL (8.5-10.1); CARBON DIOXIDE 27 MMOL/L (21-32); CHLORIDE 106 MMOL/L (98-107); CREATININE SERUM 0.81 MG/DL (0.60-1.30); GFR ESTIMATED > 60; GLUCOSE 185 MG/DL (70-105); POTASSIUM 3.6 MMOL/L (3.6-5.0); SODIUM 141 MMOL/L (135-145)
[2017-11-05 08:00] VITALS: BP 189/74
[2017-11-05] MEDS: SENNA W/DOCUSATE (SENOKOT S) TABLET PO SCH ×2 (08:30→20:49)
[2017-11-05] MEDS: DULoxetine 30 MG (CYMBALTA) CAP PO SCH ×2 (08:30→20:49)
[2017-11-05] MEDS: clonazePAM 1 MG (KlonoPIN) TAB PO SCH ×2 (08:30→20:49)
[2017-11-05] MEDS: ENOXAPARIN 40 MG/0.4 ML (LOVENOX) SYR SC SCH (08:31)
--- NOTE | 2017-11-05 08:53 | Progress Note (SOAP) ---
Subjective Subjective Date Seen by Provider: Nov 05, 2017 Time Seen by Provider: 08:48 87 yo M with progressing dementia admitted for aspiration and pneumonia. Pt is more alert and conversant this AM. Still on 10 L HFNC oxygen. He reports he feels better. He says that he has never been in this building before; does not think it is a hospital. Review of Systems ROS Unable to Obtain: unable to ascertain due to dementia and AMS General: No Chills HEENT: No Head Aches Pulmonary: No Dyspnea, No Cough Cardiovascular: No: Chest Pain, Palpitations Gastrointestinal: No: Nausea, Vomiting Genitourinary: No Dysuria Musculoskeletal: No: neck pain, shoulder pain Neurological: No: Weakness Objective Exam Vital Signs Vital Signs Date Time Temp Pulse Resp B/P (MAP) Pulse Ox O2 Delivery O2 Flow Rate FiO2 11/05/17 08:18 High Flow N/C 10.00 11/05/17 08:00 96.0 72 18 189/74 (112) 93 High Flow N/C 10.00 11/05/17 06:52 92 High Flow N/C 10.00 11/05/17 02:02 94 High Flow N/C 10.00 11/05/17 00:08 97.8 64 17 160/77 (104) 99 High Flow N/C 10.00 11/04/17 21:46 94 High Flow N/C 10.00 11/04/17 20:01 High Flow N/C 10.00 11/04/17 19:08 96 High Flow N/C 10.00 11/04/17 16:00 97.9 71 18 153/67 (95) 92 High Flow N/C 10.00 11/04/17 13:16 93 High Flow N/C 10.00 11/04/17 10:09 93 High Flow N/C 10.00 11/04/17 09:00 High Flow N/C 10.00 I & O 11/05/17 07:00 Intake Total 2050 ml Output Total 1975 ml Balance 75 ml General Appearance: Mild Distress (on 10L NC oxygen) Eyes: Bilateral Eye Normal Inspection, Bilateral Eye PERRL HEENT: PERRL/EOMI Neck: Full Range of Motion, Normal Inspection, Non Tender, Supple Respiratory: Decreased Breath Sounds (bases) Cardiovascular: Regular Rate, Rhythm, No Murmur Gastrointestinal: Normal Bowel Sounds, Non Tender, Soft Back: No CVA Tenderness Extremity: Normal Capillary Refill, Normal Inspection, Normal Range of Motion, Non Tender, No Pedal Edema Neurologic/Psychiatric: Alert, Depressed Affect, Other (dementia in addition to unresponsive status) Skin: Normal Color, Warm/Dry Lymphatic: No Adenopathy Results Lab Laboratory Tests 11/04/17 11:17: Glucometer 183H 11/04/17 15:57: Glucometer 195H 11/04/17 20:45: Glucometer 221H 11/05/17 04:57: Glucometer 160H 11/05/17 06:05: White Blood Count 6.4, Red Blood Count 3.91L, Hemoglobin 11.2L, Hematocrit 34L, Mean Corpuscular Volume 87, Mean Corpuscular Hemoglobin 29, Mean Corpuscular Hemoglobin Concent 33, Red Cell Distribution Width 13.2, Platelet Count 243, Mean Platelet Volume 10.7H, Neutrophils (%) (Auto) 66, Lymphocytes (%) (Auto) 15 , Monocytes (%) (Auto) 14H, Eosinophils (%) (Auto) 4, Basophils (%) (Auto) 0, Neutrophils # (Auto) 4.3, Lymphocytes # (Auto) 1.0, Monocytes # (Auto) 0.9, Eosinophils # (Auto) 0.3, Basophils # (Auto) 0.0, Sodium Level 141, Potassium Level 3.6, Chloride Level 106, Carbon Dioxide Level 27, Anion Gap 8, Blood Urea Nitrogen 15, Creatinine 0.81, Estimat Glomerular Filtration Rate > 60, BUN/ Creatinine Ratio 19, Glucose Level 185H, Calcium Level 8.5 Microbiology 10/31/17 Blood Culture - Preliminary, Resulted No growth Assessment/Plan Assessment/Plan Admission Status: Inpatient Order (span 2 midnights) Reason for Inpatient Admission: acute hypoxic respiratory failure due to pneumonia and/or aspiration Assessment and Plan 11/03/17 Speech pathology evaluation recommends Diet: Puree with thin liquids. - 1:1 supervision (staff, caregiver) through PO intake. - Crush medication and place in puree for administration. - Upright and alert for all PO. -labs continue to be stable- pt is afebrile. Continue meropenem- will complete antibiotic on 11/07/17- continue to try to titrate oxygen down. Dr. Cardona consulted. Pt is DNR. Dispo: quality of life is poor with his progressing Alzheimer dementia. Pt is DNR. Continue to monitor improvement (as he has improved the last couple days) . If his oxygen can be titrated down would be able to return to long term Wednesday. Problems: (1) Pneumonia involving right lung Qualifiers: Qualified Codes: J18.1 - Lobar pneumonia, unspecified organism (2) Hypoxia Assessment & Plan: supportive oxygen (3) Dementia Qualifiers: Qualified Codes: G30.1 - Alzheimer's disease with late onset; F02.80 - Dementia in other diseases classified elsewhere without behavioral disturbance (4) Diabetes mellitus Qualifiers: Qualified Codes: E11.59 - Type 2 diabetes mellitus with other circulatory complications; Z79.4 - ad terminal makeup operator (current) use of insulin Assessment & Plan: continue monitoring blood sugar and insulin regimen (5) Constipation, chronic (6) Leukocytosis Qualifiers: Qualified Codes: D72.823 - Leukemoid reaction (7) Hypertension Qualifiers: Qualified Codes: I10 - Essential (primary) hypertension Assessment & Plan: monitor blood pressure. Clinical Quality Measures DVT/VTE Risk/Contraindication: Risk Factor Score Per Nursin RFS Level Per Nursing on Admit: 4+=Very High ZAY MOREAU MD Nov 05, 2017 08:53
[2017-11-05] MEDS: NS IV 1000 ML 1,000 ML IV SCH (10:47)
[2017-11-05 16:00] VITALS: BP 137/93
[2017-11-05 19:11] VITALS: BP 138/66
[2017-11-05] MEDS: traZODone 50 MG (DESYREL) TAB PO SCH (20:49)
[2017-11-06 00:04] VITALS: BP 139/62
[2017-11-06] MEDS: RT-ALBUTEROL/IPRATROPIUM 3 ML (DUONEB) VIAL INH SCH ×6 (02:18→22:36)
[2017-11-06] MEDS: MEROPENEM 500 MG in NS (IVPB) 100 ML IV SCH ×3 (04:02→21:47)
[2017-11-06] MEDS: NS IV 1000 ML 1,000 ML IV SCH ×2 (05:42→23:45)
[2017-11-06] MEDS: inSUlin (REGULAR) HUMAN 1 UNIT/0.01 ML (CHARGE PER UNIT) SC SCH ×4 (05:43→21:37)
[2017-11-06 08:00] VITALS: BP 187/78
[2017-11-06] MEDS: clonazePAM 1 MG (KlonoPIN) TAB PO SCH ×2 (08:24→21:47)
[2017-11-06] MEDS: ENOXAPARIN 40 MG/0.4 ML (LOVENOX) SYR SC SCH (08:24)
[2017-11-06] MEDS: SENNA W/DOCUSATE (SENOKOT S) TABLET PO SCH ×2 (08:24→21:47)
[2017-11-06] MEDS: DULoxetine 30 MG (CYMBALTA) CAP PO SCH ×2 (08:24→21:47)
[2017-11-06 10:53] VITALS: BP 187/73
--- NOTE | 2017-11-06 12:04 | Progress Note-Hospitalist ---
Subjective HPI/CC On Admission Date Seen by Provider: Nov 06, 2017 Time Seen by Provider: 11:00 CC: Hypoxia with AMS and RLL Pneumonia HPI: This is an 87-year-old white male with extensive and severe dementia history resides at a [facility] Dr. Cook who presented to the penit[facility]iary with complaints of difficulty breathing and hypoxia of 76% upon arrival. Apparently he has been declining in status although his baseline is very poor chronically but he was assessed in the ER found to have pneumonia with hypoxia and altered mental status. He cannot provide me any details. I reviewed the penitentiary records and prior admissions to evaluate any details for this dictation. Currently he does not respond he is sleeping soundly and has oxygen intact. Subjective/Events-last exam Patient about the same Unresponsive Checked meds and labs No pain is reported. Objective Exam Vital Signs Vital Signs Date Time Temp Pulse Resp B/P (MAP) Pulse Ox O2 Delivery O2 Flow Rate FiO2 10/31/17 11:15 94 Nasal Cannula 6.00 100 10/31/17 11:36 98.5 70 22 107/57 (74) Capillary Refill : Less Than 3 SecondsLess Than 3 Seconds General Appearance: No Apparent Distress, WD/WN Respiratory: Decreased Breath Sounds Cardiovascular: Regular Rate, Rhythm Neurologic/Psychiatric: Disoriented x3 Results/Procedures Lab Patient resulted labs reviewed. Assessment/Plan Assessment and Plan Assess & Plan/Chief Complaint Assessment: Sepsis Pneumonia Dementia End stage status Plan: Abx empirically Home meds if awake enough to take them DNR Very grave prognosis Diagnosis/Problems Diagnosis/Problems (1) Pneumonia involving right lung Status: Acute Qualifiers: Pneumonia type: due to unspecified organism Lung location: lower lobe of lung Qualified Codes: J18.1 - Lobar pneumonia, unspecified organism (2) Hypoxia (3) Dementia Status: Chronic Qualifiers: Dementia type: Alzheimer's disease Alzheimer's disease onset: late-onset Dementia behavioral disturbance: without behavioral disturbance Qualified Codes: G30.1 - Alzheimer's disease with late onset; F02.80 - Dementia in other diseases classified elsewhere without behavioral disturbance (4) Diabetes mellitus Status: Chronic Qualifiers: Diabetes mellitus type: type 2 Diabetes mellitus terminal press operator insulin use: with terminal press operator use Diabetes mellitus complication status: with circulatory complication Diabetes mellitus complication detail: with other circulatory complications Qualified Codes: E11.59 - Type 2 diabetes mellitus with other circulatory complications; Z79.4 - rn long term care (current) use of insulin (5) Constipation, chronic Status: Chronic (6) Leukocytosis Status: Acute Qualifiers: Leukocytosis type: leukemoid reaction Qualified Codes: D72.823 - Leukemoid reaction (7) Hypertension Status: Chronic Qualifiers: Hypertension type: essential hypertension Qualified Codes: I10 - Essential (primary) hypertension Clinical Quality Measures DVT/VTE Risk/Contraindication: Risk Factor Score Per Nursin RFS Level Per Nursing on Admit: 4+=Very High VICKI HAWTHORNE DO Nov 06, 2017 12:04
[2017-11-06 16:45] VITALS: BP 185/81
[2017-11-06] MEDS: traZODone 50 MG (DESYREL) TAB PO SCH (21:48)
[2017-11-07] VITALS: BP 143/63
[2017-11-07] MEDS: RT-ALBUTEROL/IPRATROPIUM 3 ML (DUONEB) VIAL INH SCH ×6 (02:21→21:44)
[2017-11-07] MEDS: inSUlin (REGULAR) HUMAN 1 UNIT/0.01 ML (CHARGE PER UNIT) SC SCH ×4 (05:46→20:33)
[2017-11-07] MEDS: MEROPENEM 500 MG in NS (IVPB) 100 ML IV SCH ×2 (05:46→12:11)
[2017-11-07 08:00] VITALS: BP 130/65
[2017-11-07] MEDS: ENOXAPARIN 40 MG/0.4 ML (LOVENOX) SYR SC SCH (09:18)
[2017-11-07] MEDS: clonazePAM 1 MG (KlonoPIN) TAB PO SCH ×2 (09:18→20:31)
[2017-11-07] MEDS: SENNA W/DOCUSATE (SENOKOT S) TABLET PO SCH ×2 (09:18→20:31)
[2017-11-07] MEDS: DULoxetine 30 MG (CYMBALTA) CAP PO SCH ×2 (09:18→20:31)
--- NOTE | 2017-11-07 11:35 | Progress Note-Hospitalist ---
Subjective HPI/CC On Admission Date Seen by Provider: Nov 07, 2017 Time Seen by Provider: 11:00 CC: Hypoxia with AMS and RLL Pneumonia HPI: This is an 87-year-old white male with extensive and severe dementia history resides at a local long term Dr. Cook who presented to the long term with complaints of difficulty breathing and hypoxia of 76% upon arrival. Apparently he has been declining in status although his baseline is very poor chronically but he was assessed in the ER found to have pneumonia with hypoxia and altered mental status. He cannot provide me any details. I reviewed the long term records and prior admissions to evaluate any details for this dictation. Currently he does not respond he is sleeping soundly and has oxygen intact. Subjective/Events-last exam Patient was able to wake up and communicate with me today Denies any pain Breathing okay Limited exam due to dementia Review of Systems General: Malaise Pulmonary: Cough Objective Exam Vital Signs Vital Signs Date Time Temp Pulse Resp B/P (MAP) Pulse Ox O2 Delivery O2 Flow Rate FiO2 11/01/17 01:24 93 OxyMask 8.00 11/01/17 03:45 55 11/01/17 04:45 99.9 77 20 143/57 (85) Capillary Refill : Less Than 3 SecondsLess Than 3 Seconds General Appearance: No Apparent Distress, WD/WN, Chronically ill Respiratory: Crackles, Decreased Breath Sounds Neurologic/Psychiatric: Alert, Depressed Affect, Disoriented x3 Results/Procedures Lab Patient resulted labs reviewed. Assessment/Plan Assessment and Plan Assess & Plan/Chief Complaint Assessment: Sepsis Pneumonia Dementia End stage status Plan: Abx empirically Home meds if awake enough to take them DNR Very grave prognosis Diagnosis/Problems Diagnosis/Problems (1) Pneumonia involving right lung Status: Acute Qualifiers: Pneumonia type: due to unspecified organism Lung location: lower lobe of lung Qualified Codes: J18.1 - Lobar pneumonia, unspecified organism (2) Hypoxia (3) Dementia Status: Chronic Qualifiers: Dementia type: Alzheimer's disease Alzheimer's disease onset: late-onset Dementia behavioral disturbance: without behavioral disturbance Qualified Codes: G30.1 - Alzheimer's disease with late onset; F02.80 - Dementia in other diseases classified elsewhere without behavioral disturbance (4) Diabetes mellitus Status: Chronic Qualifiers: Diabetes mellitus type: type 2 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 Diabetes mellitus complication status: with circulatory complication Diabetes mellitus complication detail: with other circulatory complications Qualified Codes: E11.59 - Type 2 diabetes mellitus with other circulatory complications; Z79.4 - detention (current) use of insulin (5) Constipation, chronic Status: Chronic (6) Leukocytosis Status: Acute Qualifiers: Leukocytosis type: leukemoid reaction Qualified Codes: D72.823 - Leukemoid reaction (7) Hypertension Status: Chronic Qualifiers: Hypertension type: essential hypertension Qualified Codes: I10 - Essential (primary) hypertension Clinical Quality Measures DVT/VTE Risk/Contraindication: Risk Factor Score Per Nursin RFS Level Per Nursing on Admit: 4+=Very High VICKI HAWTHORNE DO Nov 07, 2017 11:35
[2017-11-07 16:04] VITALS: BP 156/67
[2017-11-07] MEDS: NS IV 1000 ML 1,000 ML IV SCH (18:34)
[2017-11-07] MEDS: traZODone 50 MG (DESYREL) TAB PO SCH (20:31)
[2017-11-08] VITALS: BP 152/66
[2017-11-08] MEDS: RT-ALBUTEROL/IPRATROPIUM 3 ML (DUONEB) VIAL INH SCH ×6 (02:51→22:03)
[2017-11-08] MEDS: inSUlin (REGULAR) HUMAN 1 UNIT/0.01 ML (CHARGE PER UNIT) SC SCH ×4 (05:46→20:48)
--- NOTE | 2017-11-08 06:35 | Pulmonary Progress Note ---
Subjective Time Seen by Provider: 06:37 Exam Exam Vital Signs Date Time Temp Pulse Resp B/P (MAP) Pulse Ox O2 Delivery O2 Flow Rate FiO2 11/08/17 02:52 90 High Flow N/C 10.00 11/08/17 00:00 98.5 73 20 152/66 (94) 88 High Flow N/C 8.00 8.00 11/07/17 21:45 93 High Flow N/C 8.00 11/07/17 20:33 High Flow N/C 8.00 11/07/17 18:25 93 High Flow N/C 8.00 11/07/17 16:04 97.3 61 18 156/67 (96) 92 High Flow N/C 6.50 11/07/17 13:55 90 High Flow N/C 8.00 11/07/17 10:17 91 High Flow N/C 8.00 11/07/17 08:55 High Flow N/C 8.00 11/07/17 08:00 98.0 56 18 130/65 (86) 91 High Flow N/C 6.50 11/07/17 07:13 91 High Flow N/C 8.00 I & O 11/08/17 07:00 Intake Total 1890 ml Output Total 3100 ml Balance -1210 ml General Appearance: No Apparent Distress, WD/WN, Chronically ill HEENT: PERRL/EOMI Neck: Full Range of Motion, Normal Inspection, Non Tender, Supple Respiratory: Crackles, Decreased Breath Sounds Cardiovascular: Regular Rate, Rhythm Capillary Refill: Less Than 3 Seconds Gastrointestinal: non tender, soft Extremity: Normal Capillary Refill, Normal Inspection, Normal Range of Motion, Non Tender, No Pedal Edema Neurologic/Psychiatric: Alert, Depressed Affect, Disoriented x3 Skin: Normal Color, Warm/Dry Lymphatic: No Adenopathy Assessment/Plan Assessment/Plan -Pneumonia with hypoxia - probable aspiration -Continue Merrem ( allergic to PCN) -IVF Pulmonary edema and pleural effusion -CXR appears worse -CHeck BNP and chem -lasix 60mg IV X 1 -Severe Dementia DM 233 ILENE WINKLER DO Nov 08, 2017 06:35
[2017-11-08] MEDS ORDERED: FUROSEMIDE 40 MG/4 ML INJ (LASIX) IVP ONE (06:45)
[2017-11-08 06:54] LABS: HEMOGLOBIN 11.4 G/DL (13.3-17.7); MEAN PLATELET VOLUME 9.6 FL (7.4-10.4); RED BLOOD COUNT 3.98 10^6/uL (4.35-5.85); RED CELL DISTRIBUTION WIDTH 13.3 % (10.0-14.5); WHITE BLOOD COUNT 9.1 10^3/uL (4.3-11.0)
--- NOTE | 2017-11-08 07:17 | Progress Note (SOAP) ---
Subjective Time Seen by Provider: 07:10 Subjective/Events-last exam Pneumonia. Sepsis. Dementia. Patient awake this morning. Patient on oxygen. Lungs sound better Objective Exam Vital Signs Date Time Temp Pulse Resp B/P (MAP) Pulse Ox O2 Delivery O2 Flow Rate FiO2 11/08/17 06:45 90 High Flow N/C 10.00 11/08/17 02:52 90 High Flow N/C 10.00 11/08/17 00:00 98.5 73 20 152/66 (94) 88 High Flow N/C 8.00 8.00 11/07/17 21:45 93 High Flow N/C 8.00 11/07/17 20:33 High Flow N/C 8.00 11/07/17 18:25 93 High Flow N/C 8.00 11/07/17 16:04 97.3 61 18 156/67 (96) 92 High Flow N/C 6.50 11/07/17 13:55 90 High Flow N/C 8.00 11/07/17 10:17 91 High Flow N/C 8.00 11/07/17 08:55 High Flow N/C 8.00 11/07/17 08:00 98.0 56 18 130/65 (86) 91 High Flow N/C 6.50 11/07/17 07:13 91 High Flow N/C 8.00 I & O 11/08/17 07:00 Intake Total 1890 ml Output Total 3100 ml Balance -1210 ml Capillary Refill : Less Than 3 SecondsLess Than 3 Seconds General Appearance: No Apparent Distress, WD/WN HEENT: Normal ENT Inspection Neck: Normal Inspection Respiratory: Normal Breath Sounds, No Accessory Muscle Use, No Respiratory Distress Cardiovascular: Regular Rate, Rhythm, No Murmur Results Lab Laboratory Tests 11/08/17 06:45 Laboratory Tests 11/07/17 11:01: Glucometer 191H 11/07/17 16:09: Glucometer 218H 11/07/17 20:29: Glucometer 203H 11/08/17 05:39: Glucometer 171H 11/08/17 06:45: White Blood Count 9.1, Red Blood Count 3.98L, Hemoglobin 11.4L, Hematocrit 34L, Mean Corpuscular Volume 86, Mean Corpuscular Hemoglobin 29, Mean Corpuscular Hemoglobin Concent 33, Red Cell Distribution Width 13.3, Platelet Count 306, Mean Platelet Volume 9.6 Microbiology 10/31/17 Blood Culture - Final, Complete No growth Assessment/Plan Assessment/Plan Assess & Plan/Chief Complaint Pneumonia. Nonresponsive. Hypoxia. Alzheimer's disease without agitation. COPD. Diabetes mellitus. DO NOT RESUSCITATE leukocytosis. Hypertension. . 11/02/17. Pneumonia. Patient responsive today. Hypoxia. Alzheimer's disease without agitation. COPD. DO NOT RESUSCITATE. Hypertension. Patient improving. . 11/03/17. Pneumonia. Patient sleeping comfortably. Hypoxia. Alzheimer's disease without agitation. COPD. DO NOT RESUSCITATE. Patient appears as good as he will get. Hypertension. Waiting for chest x-ray results. . 11/08/17. Pneumonia. Sepsis. Dementia. Patient awake this morning. Patient not in any respiratory distress. To do chest x-ray today Clinical Quality Measures DVT/VTE Risk/Contraindication: Risk Factor Score Per Nursin RFS Level Per Nursing on Admit: 4+=Very High VI AKERS DO Nov 08, 2017 07:17
[2017-11-08 07:18] LABS: BUN/CREATININE RATIO 22; CALCIUM 8.7 MG/DL (8.5-10.1); CARBON DIOXIDE 28 MMOL/L (21-32); CHLORIDE 103 MMOL/L (98-107); CREATININE SERUM 0.83 MG/DL (0.60-1.30); GFR ESTIMATED > 60; GLUCOSE 195 MG/DL (70-105); MAGNESIUM 1.7 MG/DL (1.8-2.4); POTASSIUM 3.8 MMOL/L (3.6-5.0); SODIUM 139 MMOL/L (135-145)
[2017-11-08 08:00] VITALS: BP 145/68
[2017-11-08] MEDS: POTASSIUM CL 10MEQ/50ML IVPB 50 ML IV SCH ×4 (08:29→09:48)
[2017-11-08] MEDS: clonazePAM 1 MG (KlonoPIN) TAB PO SCH ×2 (08:30→20:33)
[2017-11-08] MEDS: SENNA W/DOCUSATE (SENOKOT S) TABLET PO SCH ×2 (08:30→20:33)
[2017-11-08] MEDS: ENOXAPARIN 40 MG/0.4 ML (LOVENOX) SYR SC SCH (08:30)
[2017-11-08] MEDS ORDERED: NS IV 500 ML 500 ML ONE (08:33)
--- NOTE | 2017-11-08 08:37 | Diagnostic Imaging Report ---
INDICATION: Pneumonia. TIME OF EXAM: 8:17 AM Correlation is made with prior study from 11/04/2017. FINDINGS: Right upper lobe pneumonia persists. There appears to be some improved aeration and less consolidation in the left base when compared with 4 days earlier. No effusion is seen. No pneumothorax identified. IMPRESSION: Continued right upper lobe pneumonia as well as right lower lobe pneumonia/atelectasis. There has been improved aeration to left base since 4 days earlier. Dictated by: Dictated on workstation # [id number]
[2017-11-08] MEDS: DULoxetine 30 MG (CYMBALTA) CAP PO SCH ×2 (08:38→20:33)
[2017-11-08 16:30] VITALS: BP 120/58
[2017-11-08] MEDS: traZODone 50 MG (DESYREL) TAB PO SCH (20:33)
[2017-11-09 00:28] VITALS: BP 140/64
[2017-11-09] MEDS: RT-ALBUTEROL/IPRATROPIUM 3 ML (DUONEB) VIAL INH SCH ×6 (01:53→22:51)
[2017-11-09] MEDS: inSUlin (REGULAR) HUMAN 1 UNIT/0.01 ML (CHARGE PER UNIT) SC SCH ×4 (06:00→21:22)
[2017-11-09 06:48] LABS: HEMOGLOBIN 11.5 G/DL (13.3-17.7); RED BLOOD COUNT 4.03 10^6/uL (4.35-5.85); RED CELL DISTRIBUTION WIDTH 13.1 % (10.0-14.5); WHITE BLOOD COUNT 8.1 10^3/uL (4.3-11.0)
[2017-11-09 07:19] LABS: BUN/CREATININE RATIO 24; CALCIUM 8.9 MG/DL (8.5-10.1); CARBON DIOXIDE 30 MMOL/L (21-32); CHLORIDE 98 MMOL/L (98-107); GFR ESTIMATED > 60; GLUCOSE 262 MG/DL (70-105); MAGNESIUM 1.8 MG/DL (1.8-2.4); PHOSPHORUS 3.3 MG/DL (2.3-4.7); POTASSIUM 3.6 MMOL/L (3.6-5.0); SODIUM 137 MMOL/L (135-145)
--- NOTE | 2017-11-09 07:57 | Progress Note (SOAP) ---
Subjective Time Seen by Provider: 07:55 Subjective/Events-last exam Patient clinically doing better. Patient eating. Patient awake. Plan to discharge tomorrow Objective Exam Vital Signs Date Time Temp Pulse Resp B/P (MAP) Pulse Ox O2 Delivery O2 Flow Rate FiO2 11/09/17 06:45 93 High Flow N/C 10.00 11/09/17 01:54 91 High Flow N/C 10.00 11/09/17 00:28 98.6 68 18 140/64 (89) 93 High Flow N/C 10.00 11/08/17 22:03 92 High Flow N/C 10.00 11/08/17 20:00 High Flow N/C 10.00 11/08/17 18:19 93 High Flow N/C 10.00 11/08/17 16:30 97.0 63 20 120/58 (78) 94 High Flow N/C 8.00 8.00 11/08/17 14:31 90 High Flow N/C 10.00 11/08/17 10:25 92 High Flow N/C 10.00 11/08/17 08:00 98.4 70 20 145/68 (93) 93 High Flow N/C 8.00 8.00 11/08/17 08:00 High Flow N/C 10.00 I & O 11/09/17 07:00 Intake Total 2690 ml Output Total 3775 ml Balance -1085 ml Capillary Refill : Less Than 3 SecondsLess Than 3 Seconds General Appearance: No Apparent Distress, WD/WN HEENT: Normal ENT Inspection Neck: Normal Inspection Respiratory: Normal Breath Sounds, No Accessory Muscle Use Cardiovascular: Regular Rate, Rhythm Gastrointestinal: non tender, soft Results Lab Laboratory Tests 11/08/17 11:12: Glucometer 262H 11/08/17 16:32: Glucometer 191H 11/08/17 20:47: Glucometer 200H 11/09/17 05:26: Glucometer 255H 11/09/17 06:05: White Blood Count 8.1, Red Blood Count 4.03L, Hemoglobin 11.5L, Hematocrit 35L, Mean Corpuscular Volume 86, Mean Corpuscular Hemoglobin 29, Mean Corpuscular Hemoglobin Concent 33, Red Cell Distribution Width 13.1, Platelet Count 329, Mean Platelet Volume 10.0, Sodium Level 137, Potassium Level 3.6, Chloride Level 98, Carbon Dioxide Level 30, Anion Gap 9, Blood Urea Nitrogen 24H, Creatinine 1.00, Estimat Glomerular Filtration Rate > 60, BUN/Creatinine Ratio 24, Glucose Level 262H, Calcium Level 8.9, Phosphorus Level 3.3, Magnesium Level 1.8 Microbiology 10/31/17 Blood Culture - Final, Complete No growth Assessment/Plan Assessment/Plan Assess & Plan/Chief Complaint Pneumonia. Nonresponsive. Hypoxia. Alzheimer's disease without agitation. COPD. Diabetes mellitus. DO NOT RESUSCITATE leukocytosis. Hypertension. . 11/02/17. Pneumonia. Patient responsive today. Hypoxia. Alzheimer's disease without agitation. COPD. DO NOT RESUSCITATE. Hypertension. Patient improving. . 11/03/17. Pneumonia. Patient sleeping comfortably. Hypoxia. Alzheimer's disease without agitation. COPD. DO NOT RESUSCITATE. Patient appears as good as he will get. Hypertension. Waiting for chest x-ray results. . 11/08/17. Pneumonia. Sepsis. Dementia. Patient awake this morning. Patient not in any respiratory distress. To do chest x-ray today. . . Pneumonia. Chest x-ray yesterday showed improvement. Sepsis. Dementia. Patient taking fluids. Plan to discharge tomorrow Clinical Quality Measures DVT/VTE Risk/Contraindication: Risk Factor Score Per Nursin RFS Level Per Nursing on Admit: 4+=Very High VI AKERS DO Nov 09, 2017 07:57
[2017-11-09 08:00] VITALS: BP 155/70
[2017-11-09] MEDS ORDERED: FUROSEMIDE 40 MG/4 ML INJ (LASIX) IVP NR ×2 (09:31→15:15)
[2017-11-09] MEDS: SENNA W/DOCUSATE (SENOKOT S) TABLET PO SCH ×2 (09:43→20:41)
[2017-11-09] MEDS: clonazePAM 1 MG (KlonoPIN) TAB PO SCH ×2 (09:43→20:41)
[2017-11-09] MEDS: ENOXAPARIN 40 MG/0.4 ML (LOVENOX) SYR SC SCH (09:43)
[2017-11-09] MEDS: DULoxetine 30 MG (CYMBALTA) CAP PO SCH ×2 (09:47→20:41)
[2017-11-09] MEDS ORDERED: KCL 20 MEQ TAB (K-DUR) PO NR (15:15)
--- NOTE | 2017-11-09 15:18 | Pulmonary Progress Note ---
Subjective Time Seen by Provider: 15:17 Subjective/Events-last exam PT complains of SOB. Exam Exam Vital Signs Date Time Temp Pulse Resp B/P (MAP) Pulse Ox O2 Delivery O2 Flow Rate FiO2 11/09/17 14:26 94 Nasal Cannula 8.00 11/09/17 11:17 54 92 11/09/17 11:15 92 High Flow N/C 10.00 11/09/17 10:59 High Flow N/C 10.00 11/09/17 08:00 97.3 62 18 155/70 (98) 93 High Flow N/C 10.00 11/09/17 06:45 93 High Flow N/C 10.00 11/09/17 01:54 91 High Flow N/C 10.00 11/09/17 00:28 98.6 68 18 140/64 (89) 93 High Flow N/C 10.00 11/08/17 22:03 92 High Flow N/C 10.00 11/08/17 20:00 High Flow N/C 10.00 11/08/17 18:19 93 High Flow N/C 10.00 11/08/17 16:30 97.0 63 20 120/58 (78) 94 High Flow N/C 8.00 8.00 I & O 11/09/17 07:00 Intake Total 2690 ml Output Total 3775 ml Balance -1085 ml General Appearance: No Apparent Distress, WD/WN HEENT: Normal ENT Inspection Neck: Normal Inspection Respiratory: Normal Breath Sounds, No Accessory Muscle Use Cardiovascular: Regular Rate, Rhythm Capillary Refill: Less Than 3 Seconds Gastrointestinal: non tender, soft Extremity: Normal Capillary Refill, Normal Inspection, Normal Range of Motion, Non Tender, No Pedal Edema Neurologic/Psychiatric: Alert, Depressed Affect, Disoriented x3 Skin: Normal Color, Warm/Dry Lymphatic: No Adenopathy Results Lab Laboratory Tests 11/08/17 06:45 11/09/17 06:05 Assessment/Plan Assessment/Plan -Pneumonia with hypoxia - probable aspiration -Pt finished Merrem ( allergic to PCN) -IVF Pulmonary edema and pleural effusion -labs and radiology reviewed -repeat lasix 60mg IV X 1 -Severe Dementia DM 233 ILENE WINKLER DO Nov 09, 2017 15:18
[2017-11-09 16:42] VITALS: BP 156/65
[2017-11-09] MEDS ORDERED: TAMSULOSIN 0.4 MG (FLOMAX) CAP PO SCH (18:00)
[2017-11-09] MEDS: traZODone 50 MG (DESYREL) TAB PO SCH (20:41)
[2017-11-10] VITALS: BP 126/60
[2017-11-10] MEDS: RT-ALBUTEROL/IPRATROPIUM 3 ML (DUONEB) VIAL INH SCH ×3 (02:51→10:21)
--- NOTE | 2017-11-10 05:38 | Pulmonary Progress Note ---
Subjective Time Seen by Provider: 06:54 Subjective/Events-last exam No complications noted. Exam Exam Vital Signs Date Time Temp Pulse Resp B/P (MAP) Pulse Ox O2 Delivery O2 Flow Rate FiO2 11/10/17 02:52 90 Nasal Cannula 3.00 11/10/17 00:00 98.0 82 19 126/60 (82) 92 Nasal Cannula 3.00 11/09/17 22:52 92 Nasal Cannula 3.00 11/09/17 20:00 High Flow N/C 3.00 11/09/17 18:36 92 Nasal Cannula 3.00 11/09/17 16:42 98.7 85 17 156/65 (95) 95 Nasal Cannula 3.00 11/09/17 14:26 94 Nasal Cannula 8.00 11/09/17 11:17 54 92 11/09/17 11:15 92 High Flow N/C 10.00 11/09/17 10:59 High Flow N/C 10.00 11/09/17 08:00 97.3 62 18 155/70 (98) 93 High Flow N/C 10.00 11/09/17 06:45 93 High Flow N/C 10.00 I & O 11/10/17 07:00 Intake Total 1540 ml Output Total 4125 ml Balance -2585 ml General Appearance: No Apparent Distress, WD/WN HEENT: Normal ENT Inspection Neck: Normal Inspection Respiratory: Normal Breath Sounds, No Accessory Muscle Use Cardiovascular: Regular Rate, Rhythm Capillary Refill: Less Than 3 Seconds Gastrointestinal: non tender, soft Extremity: Normal Capillary Refill, Normal Inspection, Normal Range of Motion, Non Tender, No Pedal Edema Neurologic/Psychiatric: Alert, Depressed Affect, Disoriented x3 Skin: Normal Color, Warm/Dry Lymphatic: No Adenopathy Results Lab Laboratory Tests 11/08/17 06:45 11/09/17 06:05 Assessment/Plan Assessment/Plan -Pneumonia with hypoxia - resolving Pulmonary edema and pleural effusion -labs and radiology reviewed -Lasix given yesterday -Severe Dementia DM pt is ok from pulmonary standpoint for discharge. 232 ILENE WINKLER DO Nov 10, 2017 05:37
[2017-11-10 06:09] LABS: HEMOGLOBIN 11.7 G/DL (13.3-17.7); RED BLOOD COUNT 4.06 10^6/uL (4.35-5.85); RED CELL DISTRIBUTION WIDTH 13.5 % (10.0-14.5); WHITE BLOOD COUNT 6.8 10^3/uL (4.3-11.0)
[2017-11-10 06:26] LABS: CALCIUM 9.1 MG/DL (8.5-10.1); CREATININE SERUM 1.29 MG/DL (0.60-1.30); PHOSPHORUS 4.2 MG/DL (2.3-4.7); POTASSIUM 3.9 MMOL/L (3.6-5.0)
[2017-11-10] MEDS: inSUlin (REGULAR) HUMAN 1 UNIT/0.01 ML (CHARGE PER UNIT) SC SCH ×2 (06:30→12:10)
--- NOTE | 2017-11-10 07:56 | Progress Note (SOAP) ---
Subjective Time Seen by Provider: 07:55 Subjective/Events-last exam doing better. Patient ate good yesterday. Nasal oxygen at 3 L. Patient having no problems breathing. Patient resting comfortably. Patient to be discharged today Objective Exam Vital Signs Date Time Temp Pulse Resp B/P (MAP) Pulse Ox O2 Delivery O2 Flow Rate FiO2 11/10/17 07:24 92 Nasal Cannula 3.00 11/10/17 02:52 90 Nasal Cannula 3.00 11/10/17 00:00 98.0 82 19 126/60 (82) 92 Nasal Cannula 3.00 11/09/17 22:52 92 Nasal Cannula 3.00 11/09/17 20:00 High Flow N/C 3.00 11/09/17 18:36 92 Nasal Cannula 3.00 11/09/17 16:42 98.7 85 17 156/65 (95) 95 Nasal Cannula 3.00 11/09/17 14:26 94 Nasal Cannula 8.00 11/09/17 11:17 54 92 11/09/17 11:15 92 High Flow N/C 10.00 11/09/17 10:59 High Flow N/C 10.00 11/09/17 08:00 97.3 62 18 155/70 (98) 93 High Flow N/C 10.00 I & O 11/10/17 07:00 Intake Total 1690 ml Output Total 4375 ml Balance -2685 ml Capillary Refill : Less Than 3 SecondsLess Than 3 Seconds General Appearance: No Apparent Distress, WD/WN HEENT: Normal ENT Inspection Neck: Normal Inspection Respiratory: Lungs Clear, No Accessory Muscle Use, No Respiratory Distress Cardiovascular: Regular Rate, Rhythm Gastrointestinal: non tender, soft Results Lab Laboratory Tests 11/09/17 11:03: Glucometer 271H 11/09/17 16:23: Glucometer 252H 11/09/17 21:00: Glucometer 280H 11/10/17 05:18: White Blood Count 6.8, Red Blood Count 4.06L, Hemoglobin 11.7L, Hematocrit 35L, Mean Corpuscular Volume 87, Mean Corpuscular Hemoglobin 29, Mean Corpuscular Hemoglobin Concent 33, Red Cell Distribution Width 13.5, Platelet Count 358, Mean Platelet Volume 10.0, Sodium Level 139, Potassium Level 3.9, Chloride Level 99, Carbon Dioxide Level 30, Anion Gap 10, Blood Urea Nitrogen 30H, Creatinine 1.29, Estimat Glomerular Filtration Rate 53, BUN/Creatinine Ratio 23 , Glucose Level 306H, Calcium Level 9.1, Phosphorus Level 4.2, Magnesium Level 2.0 11/10/17 06:01: Glucometer 301H Microbiology 10/31/17 Blood Culture - Final, Complete No growth Assessment/Plan Assessment/Plan Assess & Plan/Chief Complaint Pneumonia. Nonresponsive. Hypoxia. Alzheimer's disease without agitation. COPD. Diabetes mellitus. DO NOT RESUSCITATE leukocytosis. Hypertension. . 11/02/17. Pneumonia. Patient responsive today. Hypoxia. Alzheimer's disease without agitation. COPD. DO NOT RESUSCITATE. Hypertension. Patient improving. . 11/03/17. Pneumonia. Patient sleeping comfortably. Hypoxia. Alzheimer's disease without agitation. COPD. DO NOT RESUSCITATE. Patient appears as good as he will get. Hypertension. Waiting for chest x-ray results. . 11/08/17. Pneumonia. Sepsis. Dementia. Patient awake this morning. Patient not in any respiratory distress. To do chest x-ray today. . . Pneumonia. Chest x-ray yesterday showed improvement. Sepsis. Dementia. Patient taking fluids. Plan to discharge tomorrow. . 4 squarish . Pneumonia. Sepsis. Dementia. Patient needing by himself yesterday. Nasal oxygen at 3 L. Patient resting comfortably. Patient breathing good. Plan to discharge today Clinical Quality Measures DVT/VTE Risk/Contraindication: Risk Factor Score Per Nursin RFS Level Per Nursing on Admit: 4+=Very High VI AKERS DO Nov 10, 2017 07:55
[2017-11-10 08:00] VITALS: BP 142/65
--- NOTE | 2017-11-10 08:01 | Discharge Inst-Skilled Nursing ---
Discharge Inst-Skilled NF Consult/Follow Up/Orders Follow Up Appt.: One week Skilled NF Admit to: [facility] Certification (SNF) I certify that SNF services are required to be given on an inpatient basis because of the above named patient's need for half-way care on a continuing basis for the conditions(s) for which he/she was receiving inpatient hospital services prior to his/her transfer to the SNF. [facility] Facility Order: Nursing Services Discharge Diet: ADA Diet Daily Activity as Tolerated: Yes New & Resume Previous Orders Chi Akers Nov 10, 2017 08:00 Pneu Vac Indicated: Yes CHI AKERS DO Nov 10, 2017 08:01
[2017-11-10] MEDS: SENNA W/DOCUSATE (SENOKOT S) TABLET PO SCH (09:36)
[2017-11-10] MEDS: ENOXAPARIN 40 MG/0.4 ML (LOVENOX) SYR SC SCH (09:36)
[2017-11-10] MEDS: clonazePAM 1 MG (KlonoPIN) TAB PO SCH (09:36)
[2017-11-10] MEDS: DULoxetine 30 MG (CYMBALTA) CAP PO SCH (09:37)
[2017-11-10 15:00] VITALS: BP 142/65
--- NOTE | 2017-11-10 19:09 | Discharge Summary ---
Diagnosis/Chief Complaint Date of Admission Oct 31, 2017 at 12:39 Date of Discharge Nov 10, 2017 at 15:00 Discharge Date: Nov 10, 2017 Discharge Time: 19:05 Discharge Diagnosis Pneumonia. Sepsis. Unresponsive. Alzheimer's disease without agitation. COPD. Diabetes. DO NOT RESUSCITATE. Hypertension. Diabetes and aspiration pneumonia Discharge Summary Consultations Pulmonology Discharge Physical Examination Allergies: Coded Allergies: Penicillins (Unverified Allergy, Unknown, 10/31/17) hydrocodone (Unverified Allergy, Unknown, 10/31/17) levofloxacin (Unverified Allergy, Unknown, 10/31/17) Vitals & I&Os Vital Signs Date Time Temp Pulse Resp B/P (MAP) Pulse Ox O2 Delivery O2 Flow Rate FiO2 11/10/17 15:00 73 18 142/65 94 Nasal Cannula 3.00 100 11/10/17 08:00 96.1 Hospital Course Patient in hospital did improve. Patient did wake up. Chest x-ray shows pneumonia better. Patient on discharge went to hospice. Labs (last 24 hrs) Laboratory Tests 10/31/17 11:25: Urine Color YELLOW, Urine Clarity CLEAR, Urine pH 5, Urine Specific Spencer 1.015L, Urine Protein NEGATIVE, Urine Glucose (UA) NEGATIVE, Urine Ketones 1+H, Urine Nitrite NEGATIVE, Urine Bilirubin NEGATIVE, Urine Urobilinogen NORMAL, Urine Leukocyte Esterase 1+H, Urine RBC (Auto) NEGATIVE, Urine RBC 0-2, Urine WBC 0-2, Urine Crystals NONE, Urine Bacteria FEWH, Urine Casts NONE, Urine Mucus MODERATEH, Urine Culture Indicated NO 10/31/17 11:30: White Blood Count 11.8H, Red Blood Count 4.91, Hemoglobin 14.3, Hematocrit 41, Mean Corpuscular Volume 84, Mean Corpuscular Hemoglobin 29, Mean Corpuscular Hemoglobin Concent 35, Red Cell Distribution Width 13.7, Platelet Count 223, Mean Platelet Volume 11.0H, Neutrophils (%) (Auto) 85H, Lymphocytes (%) (Auto) 9L, Monocytes (%) (Auto) 6, Eosinophils (%) (Auto) 0, Basophils (%) (Auto) 0, Neutrophils # (Auto) 10.0H, Lymphocytes # (Auto) 1.0, Monocytes # (Auto) 0.8, Eosinophils # (Auto) 0.0, Basophils # (Auto) 0.0, Prothrombin Time 13.9, INR Comment 1.1, Activated Partial Thromboplast Time 25, Sodium Level 139, Potassium Level 4.1, Chloride Level 101, Carbon Dioxide Level 30, Anion Gap 8, Blood Urea Nitrogen 21H, Creatinine 1.22, Estimat Glomerular Filtration Rate 56 , BUN/Creatinine Ratio 17, Glucose Level 136H, Lactic Acid Level 1.80, Calcium Level 9.1, Total Bilirubin 0.6, Aspartate Amino Transf (AST/SGOT) 17, Alanine Aminotransferase (ALT/SGPT) 21, Alkaline Phosphatase 103, Total Protein 6.6, Albumin 3.7 10/31/17 18:11: Glucometer 137H 10/31/17 21:47: Glucometer 139H 11/01/17 00:05: Glucometer 144H 11/01/17 05:09: Glucometer 125H 11/01/17 06:00: White Blood Count 14.6H, Red Blood Count 4.65, Hemoglobin 13.5, Hematocrit 40, Mean Corpuscular Volume 86, Mean Corpuscular Hemoglobin 29, Mean Corpuscular Hemoglobin Concent 34, Red Cell Distribution Width 13.9, Platelet Count 210, Mean Platelet Volume 11.2H, Neutrophils (%) (Auto) 86H, Lymphocytes (%) (Auto) 6L, Monocytes (%) (Auto) 8, Eosinophils (%) (Auto) 0, Basophils (%) (Auto) 0, Neutrophils # (Auto) 12.6H, Lymphocytes # (Auto) 0.9L, Monocytes # (Auto) 1.1H, Eosinophils # (Auto) 0.0, Basophils # (Auto) 0.0, Sodium Level 141, Potassium Level 4.2, Chloride Level 103, Carbon Dioxide Level 27, Anion Gap 11, Blood Urea Nitrogen 20H, Creatinine 1.26, Estimat Glomerular Filtration Rate 54, BUN/ Creatinine Ratio 16, Glucose Level 134H, Calcium Level 8.9, Total Bilirubin 0.8 , Aspartate Amino Transf (AST/SGOT) 19, Alanine Aminotransferase (ALT/SGPT) 17, Alkaline Phosphatase 88, Total Protein 6.0L, Albumin 3.4 11/01/17 11:49: Glucometer 159H 11/01/17 17:37: Glucometer 154H 11/02/17 00:11: Glucometer 116H 11/02/17 05:23: Glucometer 65L 11/02/17 06:07: White Blood Count 12.2H, Red Blood Count 4.17L, Hemoglobin 12.2L, Hematocrit 37L , Mean Corpuscular Volume 88, Mean Corpuscular Hemoglobin 29, Mean Corpuscular Hemoglobin Concent 33, Red Cell Distribution Width 14.1, Platelet Count 197, Mean Platelet Volume 10.9H, Neutrophils (%) (Auto) 80H, Lymphocytes (%) (Auto) 9L, Monocytes (%) (Auto) 11, Eosinophils (%) (Auto) 0, Basophils (%) (Auto) 0, Neutrophils # (Auto) 9.7H, Lymphocytes # (Auto) 1.1, Monocytes # (Auto) 1.3H, Eosinophils # (Auto) 0.0, Basophils # (Auto) 0.0, Sodium Level 143, Potassium Level 3.6, Chloride Level 111H, Carbon Dioxide Level 27, Anion Gap 5, Blood Urea Nitrogen 18, Creatinine 0.95, Estimat Glomerular Filtration Rate > 60, BUN/ Creatinine Ratio 19, Glucose Level 60*L, Calcium Level 8.8 11/02/17 06:29: Glucometer 59*L 11/02/17 06:52: Glucometer 71 11/02/17 11:19: Glucometer 84 11/02/17 13:22: Glucometer 89 11/02/17 18:30: Glucometer 81 11/03/17 05:44: Glucometer 260H 11/03/17 06:01: White Blood Count 8.6, Red Blood Count 3.91L, Hemoglobin 11.3L, Hematocrit 34L, Mean Corpuscular Volume 88, Mean Corpuscular Hemoglobin 29, Mean Corpuscular Hemoglobin Concent 33, Red Cell Distribution Width 13.9, Platelet Count 185, Mean Platelet Volume 11.1H, Neutrophils (%) (Auto) 77H, Lymphocytes (%) (Auto) 10L, Monocytes (%) (Auto) 12, Eosinophils (%) (Auto) 1, Basophils (%) (Auto) 0, Neutrophils # (Auto) 6.6, Lymphocytes # (Auto) 0.9L, Monocytes # (Auto) 1.0, Eosinophils # (Auto) 0.1, Basophils # (Auto) 0.0, Sodium Level 142, Potassium Level 3.9, Chloride Level 110H, Carbon Dioxide Level 24, Anion Gap 8, Blood Urea Nitrogen 19H, Creatinine 0.97, Estimat Glomerular Filtration Rate > 60, BUN /Creatinine Ratio 20, Glucose Level 213H, Calcium Level 8.7, Total Bilirubin 0.5 , Aspartate Amino Transf (AST/SGOT) 37H, Alanine Aminotransferase (ALT/SGPT) 25 , Alkaline Phosphatase 88, Total Protein 5.5L, Albumin 2.8L 11/03/17 16:14: Glucometer 204H 11/03/17 20:48: Glucometer 235H 11/04/17 05:23: Glucometer 146H 11/04/17 06:34: White Blood Count 7.8, Red Blood Count 4.44, Hemoglobin 12.9L, Hematocrit 39L, Mean Corpuscular Volume 87, Mean Corpuscular Hemoglobin 29, Mean Corpuscular Hemoglobin Concent 33, Red Cell Distribution Width 13.7, Platelet Count 199, Mean Platelet Volume 10.5H, Sodium Level 142, Potassium Level 3.9, Chloride Level 108H, Carbon Dioxide Level 23, Anion Gap 11, Blood Urea Nitrogen 16, Creatinine 0.86, Estimat Glomerular Filtration Rate > 60, BUN/Creatinine Ratio 19, Glucose Level 174H, Calcium Level 8.5 11/04/17 11:17: Glucometer 183H 11/04/17 15:57: Glucometer 195H 11/04/17 20:45: Glucometer 221H 11/05/17 04:57: Glucometer 160H 11/05/17 06:05: White Blood Count 6.4, Red Blood Count 3.91L, Hemoglobin 11.2L, Hematocrit 34L, Mean Corpuscular Volume 87, Mean Corpuscular Hemoglobin 29, Mean Corpuscular Hemoglobin Concent 33, Red Cell Distribution Width 13.2, Platelet Count 243, Mean Platelet Volume 10.7H, Neutrophils (%) (Auto) 66, Lymphocytes (%) (Auto) 15 , Monocytes (%) (Auto) 14H, Eosinophils (%) (Auto) 4, Basophils (%) (Auto) 0, Neutrophils # (Auto) 4.3, Lymphocytes # (Auto) 1.0, Monocytes # (Auto) 0.9, Eosinophils # (Auto) 0.3, Basophils # (Auto) 0.0, Sodium Level 141, Potassium Level 3.6, Chloride Level 106, Carbon Dioxide Level 27, Anion Gap 8, Blood Urea Nitrogen 15, Creatinine 0.81, Estimat Glomerular Filtration Rate > 60, BUN/ Creatinine Ratio 19, Glucose Level 185H, Calcium Level 8.5 11/05/17 11:14: Glucometer 188H 11/05/17 16:25: Glucometer 187H 11/05/17 20:08: Glucometer 270H 11/06/17 05:17: Glucometer 286H 11/06/17 11:04: Glucometer 168H 11/06/17 17:11: Glucometer 203H 11/06/17 20:44: Glucometer 154H 11/07/17 05:37: Glucometer 234H 11/07/17 11:01: Glucometer 191H 11/07/17 16:09: Glucometer 218H 11/07/17 20:29: Glucometer 203H 11/08/17 05:39: Glucometer 171H 11/08/17 06:45: White Blood Count 9.1, Red Blood Count 3.98L, Hemoglobin 11.4L, Hematocrit 34L, Mean Corpuscular Volume 86, Mean Corpuscular Hemoglobin 29, Mean Corpuscular Hemoglobin Concent 33, Red Cell Distribution Width 13.3, Platelet Count 306, Mean Platelet Volume 9.6, Sodium Level 139, Potassium Level 3.8, Chloride Level 103, Carbon Dioxide Level 28, Anion Gap 8, Blood Urea Nitrogen 18, Creatinine 0.83, Estimat Glomerular Filtration Rate > 60, BUN/Creatinine Ratio 22, Glucose Level 195H, Calcium Level 8.7, Phosphorus Level 3.0, Magnesium Level 1.7L, B- Type Natriuretic Peptide 192.6H 11/08/17 11:12: Glucometer 262H 11/08/17 16:32: Glucometer 191H 11/08/17 20:47: Glucometer 200H 11/09/17 05:26: Glucometer 255H 11/09/17 06:05: White Blood Count 8.1, Red Blood Count 4.03L, Hemoglobin 11.5L, Hematocrit 35L, Mean Corpuscular Volume 86, Mean Corpuscular Hemoglobin 29, Mean Corpuscular Hemoglobin Concent 33, Red Cell Distribution Width 13.1, Platelet Count 329, Mean Platelet Volume 10.0, Sodium Level 137, Potassium Level 3.6, Chloride Level 98, Carbon Dioxide Level 30, Anion Gap 9, Blood Urea Nitrogen 24H, Creatinine 1.00, Estimat Glomerular Filtration Rate > 60, BUN/Creatinine Ratio 24, Glucose Level 262H, Calcium Level 8.9, Phosphorus Level 3.3, Magnesium Level 1.8 11/09/17 11:03: Glucometer 271H 11/09/17 16:23: Glucometer 252H 11/09/17 21:00: Glucometer 280H 11/10/17 05:18: White Blood Count 6.8, Red Blood Count 4.06L, Hemoglobin 11.7L, Hematocrit 35L, Mean Corpuscular Volume 87, Mean Corpuscular Hemoglobin 29, Mean Corpuscular Hemoglobin Concent 33, Red Cell Distribution Width 13.5, Platelet Count 358, Mean Platelet Volume 10.0, Sodium Level 139, Potassium Level 3.9, Chloride Level 99, Carbon Dioxide Level 30, Anion Gap 10, Blood Urea Nitrogen 30H, Creatinine 1.29, Estimat Glomerular Filtration Rate 53, BUN/Creatinine Ratio 23 , Glucose Level 306H, Calcium Level 9.1, Phosphorus Level 4.2, Magnesium Level 2.0 11/10/17 06:01: Glucometer 301H 11/10/17 11:01: Glucometer 251H Microbiology 10/31/17 Blood Culture - Final, Complete No growth Laboratory Tests 10/31/17 11:30 11/01/17 06:00 11/02/17 06:07 11/03/17 06:01 11/04/17 06:34 11/05/17 06:05 11/08/17 06:45 11/09/17 06:05 11/10/17 05:18 Pending Labs Microbiology Date/Time Source Procedure Growth Status 10/31/17 12:11 Peripheral Lt Hand Blood Culture - Final No growth Complete 10/31/17 11:30 Peripheral Rt Ac Blood Culture - Final Staph, Coag Neg ([facility]) See Comments Complete Laboratory Tests 10/31/17 11:25: Urine Color YELLOW, Urine Clarity CLEAR, Urine pH 5, Urine Specific Spencer 1.015, Urine Protein NEGATIVE, Urine Glucose (UA) NEGATIVE, Urine Ketones 1+, Urine Nitrite NEGATIVE, Urine Bilirubin NEGATIVE, Urine Urobilinogen NORMAL, Urine Leukocyte Esterase 1+, Urine RBC (Auto) NEGATIVE, Urine RBC 0-2, Urine WBC 0-2, Urine Crystals NONE, Urine Bacteria FEW, Urine Casts NONE, Urine Mucus MODERATE, Urine Culture Indicated NO 10/31/17 11:30: White Blood Count 11.8, Red Blood Count 4.91, Hemoglobin 14.3, Hematocrit 41, Mean Corpuscular Volume 84, Mean Corpuscular Hemoglobin 29, Mean Corpuscular Hemoglobin Concent 35, Red Cell Distribution Width 13.7, Platelet Count 223, Mean Platelet Volume 11.0, Neutrophils (%) (Auto) 85, Lymphocytes (%) (Auto) 9, Monocytes (%) (Auto) 6, Eosinophils (%) (Auto) 0, Basophils (%) (Auto) 0, Neutrophils # (Auto) 10.0, Lymphocytes # (Auto) 1.0, Monocytes # (Auto) 0.8, Eosinophils # (Auto) 0.0, Basophils # (Auto) 0.0, Prothrombin Time 13.9, INR Comment 1.1, Activated Partial Thromboplast Time 25, Sodium Level 139, Potassium Level 4.1, Chloride Level 101, Carbon Dioxide Level 30, Anion Gap 8, Blood Urea Nitrogen 21, Creatinine 1.22, Estimat Glomerular Filtration Rate 56, BUN/Creatinine Ratio 17, Glucose Level 136, Lactic Acid Level 1.80, Calcium Level 9.1, Total Bilirubin 0.6, Aspartate Amino Transf (AST/SGOT) 17, Alanine Aminotransferase (ALT/SGPT) 21, Alkaline Phosphatase 103, Total Protein 6.6, Albumin 3.7 10/31/17 18:11: Glucometer 137 10/31/17 21:47: Glucometer 139 11/01/17 00:05: Glucometer 144 11/01/17 05:09: Glucometer 125 11/01/17 06:00: White Blood Count 14.6, Red Blood Count 4.65, Hemoglobin 13.5, Hematocrit 40, Mean Corpuscular Volume 86, Mean Corpuscular Hemoglobin 29, Mean Corpuscular Hemoglobin Concent 34, Red Cell Distribution Width 13.9, Platelet Count 210, Mean Platelet Volume 11.2, Neutrophils (%) (Auto) 86, Lymphocytes (%) (Auto) 6, Monocytes (%) (Auto) 8, Eosinophils (%) (Auto) 0, Basophils (%) (Auto) 0, Neutrophils # (Auto) 12.6, Lymphocytes # (Auto) 0.9, Monocytes # (Auto) 1.1, Eosinophils # (Auto) 0.0, Basophils # (Auto) 0.0, Sodium Level 141, Potassium Level 4.2, Chloride Level 103, Carbon Dioxide Level 27, Anion Gap 11, Blood Urea Nitrogen 20, Creatinine 1.26, Estimat Glomerular Filtration Rate 54, BUN/ Creatinine Ratio 16, Glucose Level 134, Calcium Level 8.9, Total Bilirubin 0.8, Aspartate Amino Transf (AST/SGOT) 19, Alanine Aminotransferase (ALT/SGPT) 17, Alkaline Phosphatase 88, Total Protein 6.0, Albumin 3.4 11/01/17 11:49: Glucometer 159 11/01/17 17:37: Glucometer 154 11/02/17 00:11: Glucometer 116 11/02/17 05:23: Glucometer 65 11/02/17 06:07: White Blood Count 12.2, Red Blood Count 4.17, Hemoglobin 12.2, Hematocrit 37, Mean Corpuscular Volume 88, Mean Corpuscular Hemoglobin 29, Mean Corpuscular Hemoglobin Concent 33, Red Cell Distribution Width 14.1, Platelet Count 197, Mean Platelet Volume 10.9, Neutrophils (%) (Auto) 80, Lymphocytes (%) (Auto) 9, Monocytes (%) (Auto) 11, Eosinophils (%) (Auto) 0, Basophils (%) (Auto) 0, Neutrophils # (Auto) 9.7, Lymphocytes # (Auto) 1.1, Monocytes # (Auto) 1.3, Eosinophils # (Auto) 0.0, Basophils # (Auto) 0.0, Sodium Level 143, Potassium Level 3.6, Chloride Level 111, Carbon Dioxide Level 27, Anion Gap 5, Blood Urea Nitrogen 18, Creatinine 0.95, Estimat Glomerular Filtration Rate > 60, BUN/ Creatinine Ratio 19, Glucose Level 60, Calcium Level 8.8 11/02/17 06:29: Glucometer 59 11/02/17 06:52: Glucometer 71 11/02/17 11:19: Glucometer 84 11/02/17 13:22: Glucometer 89 11/02/17 18:30: Glucometer 81 11/03/17 05:44: Glucometer 260 11/03/17 06:01: White Blood Count 8.6, Red Blood Count 3.91, Hemoglobin 11.3, Hematocrit 34, Mean Corpuscular Volume 88, Mean Corpuscular Hemoglobin 29, Mean Corpuscular Hemoglobin Concent 33, Red Cell Distribution Width 13.9, Platelet Count 185, Mean Platelet Volume 11.1, Neutrophils (%) (Auto) 77, Lymphocytes (%) (Auto) 10 , Monocytes (%) (Auto) 12, Eosinophils (%) (Auto) 1, Basophils (%) (Auto) 0, Neutrophils # (Auto) 6.6, Lymphocytes # (Auto) 0.9, Monocytes # (Auto) 1.0, Eosinophils # (Auto) 0.1, Basophils # (Auto) 0.0, Sodium Level 142, Potassium Level 3.9, Chloride Level 110, Carbon Dioxide Level 24, Anion Gap 8, Blood Urea Nitrogen 19, Creatinine 0.97, Estimat Glomerular Filtration Rate > 60, BUN/ Creatinine Ratio 20, Glucose Level 213, Calcium Level 8.7, Total Bilirubin 0.5, Aspartate Amino Transf (AST/SGOT) 37, Alanine Aminotransferase (ALT/SGPT) 25, Alkaline Phosphatase 88, Total Protein 5.5, Albumin 2.8 11/03/17 16:14: Glucometer 204 11/03/17 20:48: Glucometer 235 11/04/17 05:23: Glucometer 146 11/04/17 06:34: White Blood Count 7.8, Red Blood Count 4.44, Hemoglobin 12.9, Hematocrit 39, Mean Corpuscular Volume 87, Mean Corpuscular Hemoglobin 29, Mean Corpuscular Hemoglobin Concent 33, Red Cell Distribution Width 13.7, Platelet Count 199, Mean Platelet Volume 10.5, Sodium Level 142, Potassium Level 3.9, Chloride Level 108, Carbon Dioxide Level 23, Anion Gap 11, Blood Urea Nitrogen 16, Creatinine 0.86, Estimat Glomerular Filtration Rate > 60, BUN/Creatinine Ratio 19, Glucose Level 174, Calcium Level 8.5 11/04/17 11:17: Glucometer 183 11/04/17 15:57: Glucometer 195 11/04/17 20:45: Glucometer 221 11/05/17 04:57: Glucometer 160 11/05/17 06:05: White Blood Count 6.4, Red Blood Count 3.91, Hemoglobin 11.2, Hematocrit 34, Mean Corpuscular Volume 87, Mean Corpuscular Hemoglobin 29, Mean Corpuscular Hemoglobin Concent 33, Red Cell Distribution Width 13.2, Platelet Count 243, Mean Platelet Volume 10.7, Neutrophils (%) (Auto) 66, Lymphocytes (%) (Auto) 15 , Monocytes (%) (Auto) 14, Eosinophils (%) (Auto) 4, Basophils (%) (Auto) 0, Neutrophils # (Auto) 4.3, Lymphocytes # (Auto) 1.0, Monocytes # (Auto) 0.9, Eosinophils # (Auto) 0.3, Basophils # (Auto) 0.0, Sodium Level 141, Potassium Level 3.6, Chloride Level 106, Carbon Dioxide Level 27, Anion Gap 8, Blood Urea Nitrogen 15, Creatinine 0.81, Estimat Glomerular Filtration Rate > 60, BUN/ Creatinine Ratio 19, Glucose Level 185, Calcium Level 8.5 11/05/17 11:14: Glucometer 188 11/05/17 16:25: Glucometer 187 11/05/17 20:08: Glucometer 270 11/06/17 05:17: Glucometer 286 11/06/17 11:04: Glucometer 168 11/06/17 17:11: Glucometer 203 11/06/17 20:44: Glucometer 154 11/07/17 05:37: Glucometer 234 11/07/17 11:01: Glucometer 191 11/07/17 16:09: Glucometer 218 11/07/17 20:29: Glucometer 203 11/08/17 05:39: Glucometer 171 11/08/17 06:45: White Blood Count 9.1, Red Blood Count 3.98, Hemoglobin 11.4, Hematocrit 34, Mean Corpuscular Volume 86, Mean Corpuscular Hemoglobin 29, Mean Corpuscular Hemoglobin Concent 33, Red Cell Distribution Width 13.3, Platelet Count 306, Mean Platelet Volume 9.6, Sodium Level 139, Potassium Level 3.8, Chloride Level 103, Carbon Dioxide Level 28, Anion Gap 8, Blood Urea Nitrogen 18, Creatinine 0.83, Estimat Glomerular Filtration Rate > 60, BUN/Creatinine Ratio 22, Glucose Level 195, Calcium Level 8.7, Phosphorus Level 3.0, Magnesium Level 1.7, B-Type Natriuretic Peptide 192.6 11/08/17 11:12: Glucometer 262 11/08/17 16:32: Glucometer 191 11/08/17 20:47: Glucometer 200 11/09/17 05:26: Glucometer 255 11/09/17 06:05: White Blood Count 8.1, Red Blood Count 4.03, Hemoglobin 11.5, Hematocrit 35, Mean Corpuscular Volume 86, Mean Corpuscular Hemoglobin 29, Mean Corpuscular Hemoglobin Concent 33, Red Cell Distribution Width 13.1, Platelet Count 329, Mean Platelet Volume 10.0, Sodium Level 137, Potassium Level 3.6, Chloride Level 98, Carbon Dioxide Level 30, Anion Gap 9, Blood Urea Nitrogen 24, Creatinine 1.00, Estimat Glomerular Filtration Rate > 60, BUN/Creatinine Ratio 24, Glucose Level 262, Calcium Level 8.9, Phosphorus Level 3.3, Magnesium Level 1.8 11/09/17 11:03: Glucometer 271 11/09/17 16:23: Glucometer 252 11/09/17 21:00: Glucometer 280 11/10/17 05:18: White Blood Count 6.8, Red Blood Count 4.06, Hemoglobin 11.7, Hematocrit 35, Mean Corpuscular Volume 87, Mean Corpuscular Hemoglobin 29, Mean Corpuscular Hemoglobin Concent 33, Red Cell Distribution Width 13.5, Platelet Count 358, Mean Platelet Volume 10.0, Sodium Level 139, Potassium Level 3.9, Chloride Level 99, Carbon Dioxide Level 30, Anion Gap 10, Blood Urea Nitrogen 30, Creatinine 1.29, Estimat Glomerular Filtration Rate 53, BUN/Creatinine Ratio 23 , Glucose Level 306, Calcium Level 9.1, Phosphorus Level 4.2, Magnesium Level 2.0 11/10/17 06:01: Glucometer 301 11/10/17 11:01: Glucometer 251 Discharge Home Medications: Active Scripts Active Reported Milk of Magnesia (Magnesium Hydroxide) 400 Mg/5 Ml Oral.susp 30 Ml PO DAILY PRN Maalox Maximum Strength Susp (Mag Hydrox/Al Hydrox/Simeth) 355 Ml Oral.susp 30 Ml PO EVERY 2 HOURS PRN Hyoscyamine Sulfate 0.125 Mg Tablet 0.125 Mg PO Q4H PRN Tresiba Flextouch U-100 (Insulin Degludec) 100 Unit/1 Ml Insuln.pen 20 Units SQ HS Albuterol Sulfate 0.63 Mg/3 Ml Vial.neb 0.63 Mg IH Q6H PRN Tylenol (Acetaminophen) 325 Mg Tablet 650 Mg PO Q4H PRN Miralax (Polyethylene Glycol 3350) 17 Gm Powd.pack 17 Gm PO DAILY PRN Bisacodyl 10 Mg Supp.rect 10 Mg RC DAILY PRN Novolog Flexpen (Insulin Aspart) 300 Units/3 Ml Solution SQ AC 80-100 = 2 UNITS 101-150 =4 UNITS 151-200 =5 UNITS 201-250 =6 UNITS 251-300 =7 UNITS 301-350 =8 UNITS 351-400 =9 UNITS OVER 400 GIVE 10 UNITS AND NOTIFY PCP Instructions to patient/family Please see electronic discharge instructions given to patient. Clinical Quality Measures DVT/VTE Risk/Contraindication: Risk Factor Score Per Nursin RFS Level Per Nursing on Admit: 4+=Very High VI AKERS DO Nov 10, 2017 19:09
--- NOTE | 2017-11-15 20:10 | Physician Query Clarification ---
PQ-Uncertain Diagnosis Admission/Discharge Admission Date: Oct 31, 2017 at 12:39 Discharge Date: Nov 10, 2017 at 15:00 The medical record reflects the following clinical scenario: History/Risk Factors: altered mental status Clinical Findings: elevated WBC Treatment: antibiotics Question: Is SEPSIS a clinically valid diagnosis? SEPSIS was documented in the 11/06,, PN's and also on summary with no further documentation in the medical record. Sepsis mentioned sporadically throughout the stay. Please clarify if this patient had Sepsis during this hospital stay, and if yes , was it present on admission? Please document a response below. PHYSICIAN RESPONSE Diagnosis clinically valid: Yes, Conditon resolved In responding to this query, please exercise your independent professional judgment. The purpose of this communication is to more accurately reflect the complexity of your patients condition. The fact that a question is asked does not imply that any particular answer is desired or expected. Thank you for your timely response to this clarification. Requestors name: Florinda Phone # [phone] THIS PHYSICIAN QUERY FORM IS A PERMANENT PART OF THE MEDICAL RECORD FLORINDA JI Nov 15, 2017 20:10 VI AKERS DO Nov 16, 2017 07:13
== END 2017-11-10 15:00 | disposition hospice, inpatient (51) | DRG 871 ==
LOC: EDUNIT# 11:08 → ER 11:09 → 4TH 12:39
PROVIDERS: ADMIT Internal Medicine; ATTEND Family Medicine
DX: A41.9 Sepsis, unspecified organism (principal); J69.0 Pneumonitis due to inhalation of food and vomit; J44.9 Chronic obstructive pulmonary disease, unspecified; R09.02 Hypoxemia; R41.82 Altered mental status, unspecified; I10 Essential (primary) hypertension; E11.59 Type 2 diabetes mellitus with other circulatory complications; D72.823 Leukemoid reaction; Z66 Do not resuscitate; G30.1 Alzheimer's disease with late onset; F02.80 Dementia in other diseases classified elsewhere, unspecified severity, without behavioral disturbance, psychotic disturbance, mood disturbance, and anxiety; K59.09 Other constipation; G47.9 Sleep disorder, unspecified; M19.91 Primary osteoarthritis, unspecified site; F41.9 Anxiety disorder, unspecified; F32.9 Major depressive disorder, single episode, unspecified; Z79.4 Long term (current) use of insulin; Z86.59 Personal history of other mental and behavioral disorders; Z87.440 Personal history of urinary (tract) infections; Z87.448 Personal history of other diseases of urinary system; Z88.0 Allergy status to penicillin
CPT/HCPCS: 36415; 51702; 71045; 80048; 80053; 81000; 82962; 83605; 83735; 83880; 84100; 85025; 85027; 85610; 85730; 87040; 93041; 94640; 94760; 94799; 96365